=== PATIENT | female | born 1970 | race American Indian/Alaskan Native ===

== ENCOUNTER 2017-06-09 12:37 | Inpatient (IN) | payer OTHER ==
[2017-06-09] MEDS ORDERED: ATIVAN PO ONE (13:27)
[2017-06-09 14:18] LABS: Urine Drugs of Abuse Note Disclamer
[2017-06-09 14:24] LABS: Basophils % (Auto) 0.4 % (0.0-1.8); INR 1.01 (0.87-1.13); Mean Corpuscular HGB Conc 33 % (30-34); Mean Corpuscular Volume 77 fl (79-97); Partial Thromboplastin Time 26.9 Sec. (24.2-36.6); Platelet Count 246 K/mm3 (140-440); Red Blood Count 4.02 M/mm3 (3.65-5.03); Red Cell Distribution Width 14.4 % (13.2-15.2); White Blood Count 5.6 K/mm3 (4.5-11.0)
[2017-06-09 14:32] LABS: Mean Corpuscular Hemoglobin 25 pg (28-32)
[2017-06-09 14:33] LABS: Creatine Kinase MB 1.8 ng/mL (0.0-4.0)
[2017-06-09 14:35] LABS: Creatine Kinase 110 units/L (30-135)
[2017-06-09 14:41] LABS: Albumin 3.9 g/dL (3.9-5); BUN/Creatinine Ratio 6.87; Bilirubin,Total 0.4 mg/dL (0.1-1.2); Calcium 9.4 mg/dL (8.4-10.2); Chloride 101.6 mmol/L (98-107); Magnesium 1.8 mg/dL (1.7-2.3); Potassium 3.1 mmol/L (3.6-5.0); Total Protein 7.7 g/dL (6.3-8.2)
[2017-06-09 14:49] LABS: Bacteria,Urine 1+ /HPF (Negative); Bilirubin,Urine NEG (Negative); Blood,Urine NEG (Negative); Ketones,Urine TR mg/dL (Negative); Leukocyte Esterase,Urine LG (Negative); Mucus,Urine 1+ /HPF; Nitrite,Urine NEG (Negative); Urobilinogen,Urine < 2.0 mg/dL (<2.0)
[2017-06-09] MEDS ORDERED: ROCEPHIN/NS 1 GM/50 ML 1 GM/50 ML BAG IV ONE (15:05)
[2017-06-09] MEDS ORDERED: K-DUR PO ONE (15:06)
--- NOTE | 2017-06-09 16:01 | Emergency Department Report ---
ED General Adult HPI - General Chief complaint: Syncope Stated complaint: SYNCOPE EPISODE Time Seen by Provider: 06/09/17 13:05 Source: patient, EMS Mode of arrival: Stretcher Limitations: Physical Limitation - History of Present Illness Initial comments: Patient states that she had a brief syncopal episode. Apparently she was standing and fell. She sustained a small abrasion of her right leg but had no other apparent injury. She does not complain of headache. She is very emotionally labile at the time of arrival. Triage stated that she had slurred speech when she arrived. However I found her speech to be fluent although she was very emotionally labile and anxious. She immediately started telling me it that her left her in April and this is what caused her problems today. However, on further questioning she states that she has passed out before but never been told she had any specific problem related to syncope. According to the triage record she has a TIA with right-sided deficit. This is actually not apparent on exam. -: Sudden Location: right, lower extremity Radiation: non-radiation Severity scale (0 -10): 0 Quality: burning Consistency: now resolved Improves with: none Worsens with: none Associated Symptoms: denies other symptoms, other (anxiety and emotional upset) - Related Data Home Medications Medication Instructions Recorded Confirmed Last Taken Hydralazine HCl [Apresoline TAB] 50 mg PO TID 06/09/17 06/09/17 Unknown Insulin Glargine [Lantus] 7 units SQ QHS 06/09/17 06/09/17 Unknown Labetalol [Normodyne] 300 mg PO BID 06/09/17 06/09/17 Unknown Allergies Allergy/AdvReac Type Severity Reaction Status Date / Time amlodipine besylate Allergy Vomiting Verified 01/21/14 20:31 [From Norvasc] hydromorphone HCl Allergy Vomiting Verified 01/21/14 20:31 [From Dilaudid] lisinopril Allergy Unknown Verified 01/21/14 20:31 ED Review of Systems ROS: Stated complaint: SYNCOPE EPISODE Other details as noted in HPI Constitutional: denies: chills, fever Eyes: denies: eye pain, eye discharge, vision change ENT: denies: ear pain, throat pain Respiratory: denies: cough, shortness of breath, wheezing Cardiovascular: syncope. denies: chest pain, palpitations Endocrine: no symptoms reported Gastrointestinal: denies: abdominal pain, nausea, diarrhea Genitourinary: denies: urgency, dysuria, discharge Musculoskeletal: denies: back pain, joint swelling, arthralgia Skin: denies: rash, lesions Neurological: denies: headache, weakness, paresthesias Psychiatric: anxiety, depression Hematological/Lymphatic: denies: easy bleeding, easy bruising ED Past Medical Hx - Past Medical History Hx Hypertension: Yes Hx Congestive Heart Failure: No Hx Diabetes: Yes Hx Asthma: No Hx COPD: No - Surgical History Hx Cholecystectomy: Yes - Social History Smoking Status: Unknown if ever smoked - Medications Home Medications: Home Medications Medication Instructions Recorded Confirmed Last Taken Type Hydralazine HCl [Apresoline TAB] 50 mg PO TID 06/09/17 06/09/17 Unknown History Insulin Glargine [Lantus] 7 units SQ QHS 06/09/17 06/09/17 Unknown History Labetalol [Normodyne] 300 mg PO BID 06/09/17 06/09/17 Unknown History ED Physical Exam - General Limitations: No Limitations General appearance: alert, other (tearful and anxious) - Head Head exam: Present: atraumatic, normocephalic - Eye Eye exam: Present: normal appearance, PERRL, EOMI. Absent: scleral icterus - ENT ENT exam: Present: normal exam, mucous membranes moist - Neck Neck exam: Present: normal inspection. Absent: tenderness, meningismus - Respiratory Respiratory exam: Present: normal lung sounds bilaterally. Absent: respiratory distress - Cardiovascular Cardiovascular Exam: Present: regular rate, normal rhythm. Absent: systolic murmur, diastolic murmur, rubs, gallop - GI/Abdominal GI/Abdominal exam: Present: soft, normal bowel sounds. Absent: distended, tenderness, guarding, rebound, rigid - Extremities Exam Extremities exam: Present: normal inspection. Absent: tenderness, calf tenderness - Back Exam Back exam: Present: normal inspection. Absent: CVA tenderness (R), CVA tenderness (L) - Neurological Exam Neurological exam: Present: alert, oriented X3, CN II-XII intact, other (NIH stroke score is 0). Absent: motor sensory deficit - Psychiatric Psychiatric exam: Present: normal affect, normal mood - Skin Skin exam: Present: warm, dry, normal color. Absent: intact (small abrasion right leg), rash ED Course Vital Signs 06/09/17 06/09/17 06/09/17 12:51 12:56 13:14 Temperature 98.9 F Pulse Rate 87 Respiratory 15 15 Rate Blood Pressure 126/82 Blood Pressure 180/91 [Right] O2 Sat by Pulse 99 99 Oximetry 06/09/17 15:20 Temperature Pulse Rate 82 Respiratory 15 Rate Blood Pressure Blood Pressure 182/85 [Right] O2 Sat by Pulse 99 Oximetry - Reevaluation(s) Reevaluation #1: Patient was found to have a possible UTI. She is given ceftriaxone. She was found to be mildly hypokalemic with a creatinine 1.6. She was given a small amount of supplemental potassium. Her d-dimer was slightly over normal. However in this clinical setting I believe that to be nonsignificant. Her EKG showed normal sinus rhythm and no ectopy. Patient was admitted by the hospitalist service for further care and evaluation. CT the head was also performed 06/09/17 16:21 ED Medical Decision Making - Lab Data Result diagrams: 06/09/17 13:41 06/09/17 13:41 Laboratory Results - last 24 hr 06/09/17 06/09/17 06/09/17 12:47 13:41 13:41 WBC 5.6 RBC 4.02 Hgb 10.0 L Hct 31.0 MCV 77 L MCH 25 L MCHC 33 RDW 14.4 Plt Count 246 Lymph % (Auto) 18.1 [place] % (Auto) 9.2 H Eos % (Auto) 1.0 Baso % (Auto) 0.4 Lymph # 1.0 L [place] # 0.5 Eos # 0.1 Baso # 0.0 Seg Neutrophils % 71.3 H Seg Neutrophils # 4.0 PT INR APTT D-Dimer Sodium 141 Potassium 3.1 L Chloride 101.6 Carbon Dioxide 23 Anion Gap 20 BUN 11 Creatinine 1.6 H Estimated GFR 42 BUN/Creatinine Ratio 6.87 Glucose 135 H POC Glucose 128 H Calcium 9.4 Magnesium 1.80 Total Bilirubin 0.40 AST 18 ALT 13 Alkaline Phosphatase 60 Total Creatine Kinase CK-MB (CK-2) CK-MB (CK-2) Rel Index Troponin T Total Protein 7.7 Albumin 3.9 Albumin/Globulin Ratio 1.0 TSH Urine Color Urine Turbidity Urine pH Ur Specific [place] Urine Protein Urine Glucose (UA) Urine Ketones Urine Blood Urine Nitrite Ur Reducing Substances Urine Bilirubin Urine Ictotest Urine Urobilinogen Ur Leukocyte Esterase Urine WBC (Auto) Urine RBC (Auto) U Epithel Cells (Auto) Urine Bacteria (Auto) Urine Mucus Urine HCG, Qual Salicylates Urine Opiates Screen Urine Methadone Screen Acetaminophen Ur Barbiturates Screen Ur Phencyclidine Scrn Ur Amphetamines Screen U Benzodiazepines Scrn Urine Cocaine Screen U Marijuana (THC) Screen Drugs of Abuse Note Plasma/Serum Alcohol 06/09/17 06/09/17 06/09/17 13:41 13:41 13:41 WBC RBC Hgb Hct MCV MCH MCHC RDW Plt Count Lymph % (Auto) [place] % (Auto) Eos % (Auto) Baso % (Auto) Lymph # [place] # Eos # Baso # Seg Neutrophils % Seg Neutrophils # PT INR APTT D-Dimer Sodium Potassium Chloride Carbon Dioxide Anion Gap BUN Creatinine Estimated GFR BUN/Creatinine Ratio Glucose POC Glucose Calcium Magnesium Total Bilirubin AST ALT Alkaline Phosphatase Total Creatine Kinase CK-MB (CK-2) CK-MB (CK-2) Rel Index Troponin T Total Protein Albumin Albumin/Globulin Ratio TSH 1.880 Urine Color Urine Turbidity Urine pH Ur Specific [place] Urine Protein Urine Glucose (UA) Urine Ketones Urine Blood Urine Nitrite Ur Reducing Substances Urine Bilirubin Urine Ictotest Urine Urobilinogen Ur Leukocyte Esterase Urine WBC (Auto) Urine RBC (Auto) U Epithel Cells (Auto) Urine Bacteria (Auto) Urine Mucus Urine HCG, Qual Salicylates < 0.3 L Urine Opiates Screen Urine Methadone Screen Acetaminophen < 15.0 Ur Barbiturates Screen Ur Phencyclidine Scrn Ur Amphetamines Screen U Benzodiazepines Scrn Urine Cocaine Screen U Marijuana (THC) Screen Drugs of Abuse Note Plasma/Serum Alcohol 06/09/17 06/09/17 06/09/17 13:41 13:41 13:41 WBC RBC Hgb Hct MCV MCH MCHC RDW Plt Count Lymph % (Auto) [place] % (Auto) Eos % (Auto) Baso % (Auto) Lymph # [place] # Eos # Baso # Seg Neutrophils % Seg Neutrophils # PT 13.2 INR 1.01 APTT 26.9 D-Dimer 291.93 H Sodium Potassium Chloride Carbon Dioxide Anion Gap BUN Creatinine Estimated GFR BUN/Creatinine Ratio Glucose POC Glucose Calcium Magnesium Total Bilirubin AST ALT Alkaline Phosphatase Total Creatine Kinase 110 CK-MB (CK-2) 1.8 CK-MB (CK-2) Rel Index 1.6 Troponin T < 0.010 Total Protein Albumin Albumin/Globulin Ratio TSH Urine Color Urine Turbidity Urine pH Ur Specific [place] Urine Protein Urine Glucose (UA) Urine Ketones Urine Blood Urine Nitrite Ur Reducing Substances Urine Bilirubin Urine Ictotest Urine Urobilinogen Ur Leukocyte Esterase Urine WBC (Auto) Urine RBC (Auto) U Epithel Cells (Auto) Urine Bacteria (Auto) Urine Mucus Urine HCG, Qual Salicylates Urine Opiates Screen Urine Methadone Screen Acetaminophen Ur Barbiturates Screen Ur Phencyclidine Scrn Ur Amphetamines Screen U Benzodiazepines Scrn Urine Cocaine Screen U Marijuana (THC) Screen Drugs of Abuse Note Plasma/Serum Alcohol < 0.01 06/09/17 06/09/17 14:13 14:13 WBC RBC Hgb Hct MCV MCH MCHC RDW Plt Count Lymph % (Auto) [place] % (Auto) Eos % (Auto) Baso % (Auto) Lymph # [place] # Eos # Baso # Seg Neutrophils % Seg Neutrophils # PT INR APTT D-Dimer Sodium Potassium Chloride Carbon Dioxide Anion Gap BUN Creatinine Estimated GFR BUN/Creatinine Ratio Glucose POC Glucose Calcium Magnesium Total Bilirubin AST ALT Alkaline Phosphatase Total Creatine Kinase CK-MB (CK-2) CK-MB (CK-2) Rel Index Troponin T Total Protein Albumin Albumin/Globulin Ratio TSH Urine Color Yellow Urine Turbidity Cloudy Urine pH 5.0 Ur Specific [place] 1.018 Urine Protein 100 mg/dl Urine Glucose (UA) 50 Urine Ketones Tr Urine Blood Neg Urine Nitrite Neg Ur Reducing Substances Not Reportable Urine Bilirubin Neg Urine Ictotest Not Reportable Urine Urobilinogen < 2.0 Ur Leukocyte Esterase Lg Urine WBC (Auto) 26.0 H Urine RBC (Auto) 25.0 U Epithel Cells (Auto) 34.0 H Urine Bacteria (Auto) 1+ Urine Mucus 1+ Urine HCG, Qual Negative Salicylates Urine Opiates Screen Presumptive negative Urine Methadone Screen Presumptive negative Acetaminophen Ur Barbiturates Screen Presumptive negative Ur Phencyclidine Scrn Presumptive negative Ur Amphetamines Screen Presumptive negative U Benzodiazepines Scrn Presumptive negative Urine Cocaine Screen Presumptive negative U Marijuana (THC) Screen Presumptive negative Drugs of Abuse Note Disclamer Plasma/Serum Alcohol - EKG Data -: EKG Interpreted by [place] EKG shows normal: sinus rhythm, axis, intervals, QRS complexes, ST-T waves Rate: normal - EKG Data Interpretation: no acute changes, other (following progression is somewhat decreased this is a nonspecific finding may be related to habitus) - Radiology Data interpreted by me: Chest x-ray no acute process. I don't see anything obvious on the CT the head. Radiologist interpretation is pending. Hospitalist is aware. Critical care attestation.: If time is entered above; I have spent that time in minutes in the direct care of this critically ill patient, excluding procedure time. ED Disposition Clinical Impression: Hypokalemia, Renal insufficiency Syncope Qualifiers: Syncope type: unspecified Qualified Code(s): R55 - Syncope and collapse Disposition: OP ADMIT IP TO THIS HOSP Is pt being admited?: Yes Does the pt Need Aspirin: Yes Condition: Stable Instructions: Syncope (ED) Referrals: PRIMARY CARE, [Primary Care Provider] - 3-5 Days Time of Disposition: 16:25
--- NOTE | 2017-06-09 16:18 | XRay Report ---
FINAL REPORT PROCEDURE: XR CHEST 1V AP TECHNIQUE: Chest radiograph anteroposterior view. CPT 53407 HISTORY: hypertension COMPARISON: No prior studies are available for comparison. FINDINGS: Heart: Mild heart shadow enlargement Mediastinum/Vessels: Normal. Lungs/Pleural space: Normal. Bony thorax: No acute osseous abnormality. Life support devices: None. IMPRESSION: No acute pulmonary abnormality. Mildly enlarged heart shadow could reflect cardiomegaly or pericardial effusion.
[2017-06-09] MEDS ORDERED: DULCOLAX PR PRN (16:24)
[2017-06-09] MEDS ORDERED: PHENERGAN PR PRN (16:24)
[2017-06-09] MEDS ORDERED: ZOFRAN IV PRN (16:24)
[2017-06-09] MEDS ORDERED: REGLAN PO PRN (16:24)
[2017-06-09] MEDS ORDERED: MILK OF MAGNESIA PO PRN (16:24)
[2017-06-09] MEDS ORDERED: SODIUM CHLORIDE FLUSH SYRINGE 10 ML IV PRN (16:24)
[2017-06-09] MEDS ORDERED: TYLENOL PO PRN (16:24)
[2017-06-09] MEDS ORDERED: NORCO 5/325 PO PRN (16:24)
[2017-06-09] MEDS ORDERED: BABY ASPIRIN PO ONE (16:25)
--- NOTE | 2017-06-09 16:27 | Cat Scan Report ---
FINAL REPORT PROCEDURE: CT HEAD/BRAIN WO CON TECHNIQUE: Computerized tomography of the head was performed without contrast material. HISTORY: syncope COMPARISON: No prior studies are available for comparison. FINDINGS: Skull and scalp: Normal. Paranasal sinuses: Moderate fluid each mastoid air cell complex consistent with moderate acute otomastoiditis. Mucosal thickening with webbing in the left maxillary sinus. Mild ethmoiditis. Ventricles and subarachnoid spaces: Normal. Cerebrum: No evidence of hemorrhage, acute infarction or mass . Cerebellum and brainstem: No evidence of hemorrhage, acute infarction or mass. Vasculature: Normal. Comments: Mild diffuse atrophy. Mild periventricular microischemic change and prominent multifocal lacunar infarcts in the basal ganglia which appear of low-attenuation and consistent with chronic process. MRI is more sensitive in detecting early or subtle micro lacunar infarcts. IMPRESSION: No definitive evidence of acute intracranial pathology. Prominent central macro lacunar infarcts. Moderate acute bilateral otomastoiditis
[2017-06-09] MEDS ORDERED: D50W (25GM) IV PRN (16:31)
--- NOTE | 2017-06-09 16:33 | History and Physical Report ---
History of Present Illness Date of examination: 06/09/17 Chief complaint: syncope History of present illness: 47-year-old -[place] female with past medical history significant for hypertension, history of upper GI bleed status post cauterization, diabetes mellitus type 2, MS, CHF, stroke presented to the emergency department complaining that she passed out earlier this morning. Patient follow on the ground and hit her arm. Denied any abnormal body movement. Denied any trauma to the head. She had similar episode previously and was admitted to [facility] and diagnosed with seizure and discharged. REVIEW OF SYSTEMS: GENERAL: no weight change, no fatigue, no fever HEAD: no head ache EYES: +blurry vision, no acute visual loss EARS: no hearing loss, no discharge, no earache NOSE: no stuffiness, no sneezing, no discharge MOUTH, THROAT AND NECK: no bleeding gums, no sore throat, no swollen neck CARDIAC: no palpitations, no dyspnea on exertion, no orthopnea, no PND, no edema , no chest pain RESPIRATORY: no shortness of breath, no wheeze, no cough, no sputum, no hemoptysis, no asthma GI: no decreased appetite, no nausea, no vomiting, no dysphagia, no diarrhea, no constipation, no abdominal pain URINARY: no change in frequency, no urgency, no polyuria, no hematuria, no incontinence MUSCULOSKELETAL: no muscle weakness, no pain, no joint stiffness NEUROLOGIC: syncope HEMATOLOGIC: no anemia, no easy bruising SKIN: no rashes ENDOCRINE: no heat/cold intolerance, no polyuria, no polydipsia, no thyroid problems, no diabetes PSYCHIATRIC: no anxiety, no depression, no suicidal ideations Past History Past Medical History: diabetes (multiple sclerosisMS), heart failure, hypertension, stroke, other (MS) Past Surgical History: cholecystectomy, Other (cauterization of bleeding ulcer) Social history: full code. denies: smoking, alcohol abuse, prescription drug abuse, IV drug use Family history: no significant family history Medications and Allergies Allergies Allergy/AdvReac Type Severity Reaction Status Date / Time amlodipine besylate Allergy Vomiting Verified 01/21/14 20:31 [From Norvasc] hydromorphone HCl Allergy Vomiting Verified 01/21/14 20:31 [From Dilaudid] lisinopril Allergy Unknown Verified 01/21/14 20:31 Home Medications Medication Instructions Recorded Confirmed Last Taken Type Hydralazine HCl [Apresoline TAB] 50 mg PO TID 06/09/17 06/09/17 Unknown History Insulin Glargine [Lantus] 7 units SQ QHS 06/09/17 06/09/17 Unknown History Labetalol [Normodyne] 300 mg PO BID 06/09/17 06/09/17 Unknown History Exam - Physical Exam Narrative exam: Not in cardiopulmonary distress. The patient appeared well nourished and normally developed. Vital signs as documented. Head exam is unremarkable. No scleral icterus . Neck is without jugular venous distension, thyromegaly, or carotid bruits. Lungs are clear to auscultation. Cardiac exam reveals regular rate and Rhythm. First and second heart sounds normal. No murmurs, rubs or gallops. Abdominal exam reveals normal bowel sounds, no masses, no organomegaly and no aortic enlargement. Extremities are nonedematous and both femoral and pedal pulses are normal. BIOMETRICS SPECIALIST: Alert and oriented 3. No focal weakness. - Constitutional Vitals: Temp Pulse Resp BP Pulse Ox 98.9 F 82 15 182/85 99 06/09/17 12:56 06/09/17 15:20 06/09/17 15:20 06/09/17 15:20 06/09/17 15:20 Results - Labs CBC & Chem 7: 06/09/17 13:41 06/09/17 13:41 Labs: Laboratory Last Values WBC 5.6 K/mm3 (4.5-11.0) 06/09/17 13:41 RBC 4.02 M/mm3 (3.65-5.03) 06/09/17 13:41 Hgb 10.0 gm/dl (10.1-14.3) L 06/09/17 13:41 Hct 31.0 % (30.3-42.9) 06/09/17 13:41 MCV 77 fl (79-97) L 06/09/17 13:41 MCH 25 pg (28-32) L 06/09/17 13:41 MCHC 33 % (30-34) 06/09/17 13:41 RDW 14.4 % (13.2-15.2) 06/09/17 13:41 Plt Count 246 K/mm3 (140-440) 06/09/17 13:41 Lymph % (Auto) 18.1 % (13.4-35.0) 06/09/17 13:41 [place] % (Auto) 9.2 % (0.0-7.3) H 06/09/17 13:41 Eos % (Auto) 1.0 % (0.0-4.3) 06/09/17 13:41 Baso % (Auto) 0.4 % (0.0-1.8) 06/09/17 13:41 Lymph # 1.0 K/mm3 (1.2-5.4) L 06/09/17 13:41 [place] # 0.5 K/mm3 (0.0-0.8) 06/09/17 13:41 Eos # 0.1 K/mm3 (0.0-0.4) 06/09/17 13:41 Baso # 0.0 K/mm3 (0.0-0.1) 06/09/17 13:41 Seg Neutrophils % 71.3 % (40.0-70.0) H 06/09/17 13:41 Seg Neutrophils # 4.0 K/mm3 (1.8-7.7) 06/09/17 13:41 PT 13.2 Sec. (12.2-14.9) 06/09/17 13:41 INR 1.01 (0.87-1.13) 06/09/17 13:41 APTT 26.9 Sec. (24.2-36.6) 06/09/17 13:41 D-Dimer 291.93 ng/mlDDU (0-234) H 06/09/17 13:41 Sodium 141 mmol/L (137-145) 06/09/17 13:41 Potassium 3.1 mmol/L (3.6-5.0) L 06/09/17 13:41 Chloride 101.6 mmol/L (98-107) 06/09/17 13:41 Carbon Dioxide 23 mmol/L (22-30) 06/09/17 13:41 Anion Gap 20 mmol/L 06/09/17 13:41 BUN 11 mg/dL (7-17) 06/09/17 13:41 Creatinine 1.6 mg/dL (0.7-1.2) H 06/09/17 13:41 Estimated GFR 42 ml/min 06/09/17 13:41 BUN/Creatinine Ratio 6.87 % 06/09/17 13:41 Glucose 135 mg/dL (65-100) H 06/09/17 13:41 POC Glucose 128 (70-105) H 06/09/17 12:47 Calcium 9.4 mg/dL (8.4-10.2) 06/09/17 13:41 Magnesium 1.80 mg/dL (1.7-2.3) 06/09/17 13:41 Total Bilirubin 0.40 mg/dL (0.1-1.2) 06/09/17 13:41 AST 18 units/L (5-40) 06/09/17 13:41 ALT 13 units/L (7-56) 06/09/17 13:41 Alkaline Phosphatase 60 units/L (35-129) 06/09/17 13:41 Total Creatine Kinase 110 units/L (30-135) 06/09/17 13:41 CK-MB (CK-2) 1.8 ng/mL (0.0-4.0) 06/09/17 13:41 CK-MB (CK-2) Rel Index 1.6 (0-4) 06/09/17 13:41 Troponin T < 0.010 ng/mL (0.00-0.029) 06/09/17 13:41 Total Protein 7.7 g/dL (6.3-8.2) 06/09/17 13:41 Albumin 3.9 g/dL (3.9-5) 06/09/17 13:41 Albumin/Globulin Ratio 1.0 % 06/09/17 13:41 TSH 1.880 mlU/mL (0.270-4.200) 06/09/17 13:41 Urine Color Yellow (Yellow) 06/09/17 14:13 Urine Turbidity Cloudy (Clear) 06/09/17 14:13 Urine pH 5.0 (5.0-7.0) 06/09/17 14:13 Ur Specific [place] 1.018 (1.003-1.030) 06/09/17 14:13 Urine Protein 100 mg/dl mg/dL (Negative) 06/09/17 14:13 Urine Glucose (UA) 50 mg/dL (Negative) 06/09/17 14:13 Urine Ketones Tr mg/dL (Negative) 06/09/17 14:13 Urine Blood Neg (Negative) 06/09/17 14:13 Urine Nitrite Neg (Negative) 06/09/17 14:13 Ur Reducing Substances Not Reportable 06/09/17 14:13 Urine Bilirubin Neg (Negative) 06/09/17 14:13 Urine Ictotest Not Reportable 06/09/17 14:13 Urine Urobilinogen < 2.0 mg/dL (<2.0) 06/09/17 14:13 Ur Leukocyte Esterase Lg (Negative) 06/09/17 14:13 Urine WBC (Auto) 26.0 /HPF (0.0-6.0) H 06/09/17 14:13 Urine RBC (Auto) 25.0 /HPF (0.0-6.0) 06/09/17 14:13 U Epithel Cells (Auto) 34.0 /HPF (0-13.0) H 06/09/17 14:13 Urine Bacteria (Auto) 1+ /HPF (Negative) 06/09/17 14:13 Urine Mucus 1+ /HPF 06/09/17 14:13 Urine HCG, Qual Negative (Negative) 06/09/17 14:13 Salicylates < 0.3 mg/dL (2.8-20.0) L 06/09/17 13:41 Urine Opiates Screen Presumptive negative 06/09/17 14:13 Urine Methadone Screen Presumptive negative 06/09/17 14:13 Acetaminophen < 15.0 ug/mL (10.0-30.0) 06/09/17 13:41 Ur Barbiturates Screen Presumptive negative 06/09/17 14:13 Ur Phencyclidine Scrn Presumptive negative 06/09/17 14:13 Ur Amphetamines Screen Presumptive negative 06/09/17 14:13 U Benzodiazepines Scrn Presumptive negative 06/09/17 14:13 Urine Cocaine Screen Presumptive negative 06/09/17 14:13 U Marijuana (THC) Screen Presumptive negative 06/09/17 14:13 Drugs of Abuse Note Disclamer 06/09/17 14:13 Plasma/Serum Alcohol < 0.01 gm% (0-0.07) 06/09/17 13:41 Assessment and Plan Assessment and plan: Syncope, TIA History of stroke Hypokalemia Acute kidney injury UTI Anemia - Patient is going to be working up for TIA, syncope - Hypokalemia repleted going to check morning labs\ - We will do IV fluids - We will give Rocephin - Consult neurology DVT prophylaxis - SCD because of previous history of GI bleed Disposition - Admit to telemetry floor Advance Directives: Yes VTE prophylaxis?: Mechanical Contraindication Mechanical VTE Prophylaxis: Contraindicated Reason for no VTE Prophylaxis: Bleeding Plan of care discussed with patient/family: Yes
[2017-06-09] MEDS ORDERED: NON-FORMULARY (Hydralazine Hcl [Apresoline Tab] 50 MG) PO SCH (20:00)
[2017-06-09] MEDS ORDERED: INSULIN GLARGINE SQ SCH (22:00)
[2017-06-09] MEDS: APRESOLINE PO SCH (22:12)
[2017-06-09] MEDS: NORMODYNE PO SCH (22:12)
[2017-06-09] MEDS: COLACE PO SCH (22:12)
[2017-06-09] MEDS: HEPARIN SUB-Q SCH (22:13)
[2017-06-09] MEDS: ZOCOR PO SCH (22:13)
[2017-06-09] MEDS: NOVOLOG SUB-Q SCH (22:25)
[2017-06-09] MEDS: LEVEMIR SUB-Q SCH (22:40)
[2017-06-10] MEDS: HEPARIN SUB-Q SCH ×3 (06:08→22:11)
[2017-06-10 07:10] LABS: Basophils % (Auto) 0.3 % (0.0-1.8); Eosinophils % (Auto) 0.9 % (0.0-4.3); Hematocrit 29.9 % (30.3-42.9); Hemoglobin 9.5 gm/dl (10.1-14.3); Mean Corpuscular HGB Conc 32 % (30-34); Mean Corpuscular Volume 79 fl (79-97); Platelet Count 245 K/mm3 (140-440); Red Blood Count 3.78 M/mm3 (3.65-5.03); Red Cell Distribution Width 14.1 % (13.2-15.2); White Blood Count 3.7 K/mm3 (4.5-11.0)
[2017-06-10 07:16] LABS: BUN/Creatinine Ratio 7.89; Calcium 8.8 mg/dL (8.4-10.2); Chloride 101.6 mmol/L (98-107); Potassium 3.5 mmol/L (3.6-5.0)
[2017-06-10 07:19] LABS: Mean Corpuscular Hemoglobin 25 pg (28-32)
[2017-06-10] MEDS: APRESOLINE PO SCH ×3 (08:05→20:40)
[2017-06-10] MEDS: NOVOLOG SUB-Q SCH ×4 (08:31→22:15)
--- NOTE | 2017-06-10 10:29 | Magnetic Resonance Report ---
MRI BRAIN WITHOUT CONTRAST INDICATION: Stroke. COMPARISON: Head CT from yesterday. FINDINGS: Noncontrast multiplanar and multisequence MRI of the brain demonstrates symmetric, age-appropriate ventricles and sulci without acute infarct, hemorrhage, mass effect or midline shift. Moderate periventricular and numerous white matter FLAIR and T2 hyperintensities may represent small vessel end-artery ischemic disease and/or small lacunar infarctions. No abnormal extra-axial masses or fluid collections. Normal major intracranial vascular flow voids. Normal posterior fossa structures with symmetric seventh and eighth nerve complexes. Symmetric, grossly unremarkable eye globes. Mild to moderate bilateral ethmoid sinusitis, greatest posteriorly. Mild left maxillary sinus mucosal thickening/1.2 cm retention cyst inferiorly. Extensive bilateral mastoiditis. Clear remainder imaged paranasal sinuses. Normal midline structures without evidence of Chiari malformation. CONCLUSION: No acute intracranial MRI abnormality with age-appropriate atrophy, microvascular changes and sinus disease with extensive bilateral mastoiditis, as described. Thank you for the opportunity to participate in this patient's care.
--- NOTE | 2017-06-10 10:34 | Magnetic Resonance Report ---
MRA HEAD WITHOUT CONTRAST INDICATION: Stroke. COMPARISON: None similar. FINDINGS: MRA of the head performed without intravenous contrast and demonstrates no definite critical stenosis, occlusion or vascular malformation. Subtle signal attenuation as along the right A1 segment creating somewhat beaded appearance as also along the distal right MARINE EQUIPMENT RESEARCH ENGINEER possible stenosis versus technical and remain nonspecific. Please note that detection of aneurysms less than 5 mm is limited on this exam. CONCLUSION: Normal study of the eyak of [place], as detailed above. Thank you for the opportunity to participate in this patient's care.
[2017-06-10] MEDS: COLACE PO SCH ×2 (11:01→22:11)
[2017-06-10] MEDS: NORMODYNE PO SCH ×2 (11:01→22:10)
--- NOTE | 2017-06-10 11:15 | Admit Criteria Form ---
Admission Criteria Documentation: SYNCOPE Clinical Indications for Admission to Inpatient Care ( Place 'X' for any and all applicable criteria): Admission is indicated for syncope and ANY ONE of the following (1)(2)(3)(4)(5) (6)(7) : [X]I. Inpatient admission required rather than observation care (Also use Syncope: Observation Care Criteria as appropriate) because of ANY ONE of the following: [ ]a) Hemodynamic instability that is severe or persistent [ ]b) Cardiac arrhythmias of immediate concern identified or strongly suspected (eg, needs electrophysiologic study) [ ]c) Acute coronary syndrome identified (Also use Myocardial Infarction or Angina Criteria form ) [ ]d) Structural cardiac disorder (eg, aortic stenosis) suspected as cause that requires immediate correction [ ]e) Respiratory symptoms (eg, dyspnea, tachypnea) that are severe or persistent [ ]f) Neurologic signs or symptoms that are severe or persistent ( eg, stroke, seizures, altered mental status) [ ]g) Severe electrolyte abnormalities requiring inpatient care [ ]h) Supplemental oxygen or respiratory treatment for over 24 hrs that are performable only in acute inpatient setting [ ]i) IV fluid to replace significant ongoing (eg, for over 24 hrs ) losses (>3 L/m2 per day) [ ]j) Continuous intravenous infusion of anticoagulation, platelet inhibitor, vasoactive, or antiarrhythmic medication(15)(16) [ ]k) Pulmonary artery catheter monitoring [ ]l) Temporary pacemaker placement(17) [ ]m) Emergent cardioversion(18) [X]n) Other conditions, treatment or monitoring requiring inpatient admission [ ]II. Suspicion of imminently dangerous cause (eg, rare causes like pericardial tamponade, pulmonary embolism) [ ]III. Syncope causing severe injury requiring hospitalization Extended stay beyond goal length of stay may be needed for(28) [ ]a) Dangerous arrhythmia(15)(23)(27)(29) [ ]b) Myocardial ischemia [ ]c) Seizure disorder [ ]d) Syncope-related injuries The original HDF content created by [employer] has been revised. The portions of the content which have been revised are identified through the use of italic text or in bold, and [employer] has neither reviewed nor approved the modified material. All other unmodified content is copyright [email or web address] [employer]. Please see references footnoted in the original [facility] edition 2016 Admission Criteria Met: Yes
--- NOTE | 2017-06-10 12:00 | Consultation ---
History of Present Illness Consult date: 06/10/17 Requesting physician: SHANNAN MERCADO Reason for Consult: syncope Chief complaint: passed out History of present illness: 47 YO F Hx MS on Copaxone, reportedly L Huerta's Palsy, stroke according to documents, baseline residual R sided weakness and numbness, HTN/DM2 p/w episode of syncope. Episode occurred on 06/09 11 AM. Pt denies clearly feeling lightheaded or presyncopal prior but denies prior PO intake. She reports LOC for < 5 sec and fall to ground. She denies tongue bite/incontinence/prolonged confusion or new focal numbness/tingling/weakness or inability to speak when returned to consciousness. There were no clear aggravating, relieving or other temporal factors. Severity was such to cause LOC. She reportedly had similar episode previously and was admitted to [facility] and diagnosed with seizure and discharged but details of this are not clearly available via documents. Past History Past Medical History: diabetes (multiple sclerosisMS), heart failure, hypertension, stroke, other (MS) Past Surgical History: cholecystectomy, Other (cauterization of bleeding ulcer) Social history: full code. denies: smoking, alcohol abuse, prescription drug abuse, IV drug use Family history: no significant family history Medications and Allergies Allergies Allergy/AdvReac Type Severity Reaction Status Date / Time amlodipine besylate Allergy Vomiting Verified 01/21/14 20:31 [From Norvasc] hydromorphone HCl Allergy Vomiting Verified 01/21/14 20:31 [From Dilaudid] lisinopril Allergy Unknown Verified 01/21/14 20:31 Home Medications Medication Instructions Recorded Confirmed Last Taken Type Hydralazine HCl [Apresoline TAB] 50 mg PO TID 06/09/17 06/09/17 Unknown History Insulin Glargine [Lantus] 7 units SQ QHS 06/09/17 06/09/17 Unknown History Labetalol [Normodyne] 300 mg PO BID 06/09/17 06/09/17 Unknown History Active Meds: Active Medications Acetaminophen (Tylenol) 650 mg PO Q4H PRN PRN Reason: Pain, Mild (1-3) Acetaminophen/Hydrocodone Bitart ([place] 5/325) 2 each PO Q6H PRN PRN Reason: Pain, Moderate (4-6) Bisacodyl (Dulcolax) 10 mg LA QDAY PRN PRN Reason: Constipation Dextrose (D50w (25gm)) 50 ml IV PRN PRN PRN Reason: Hypoglycemia Docusate Sodium (Colace) 100 mg PO BID [facility] Last Admin: 06/10/17 11:01 Dose: 100 mg Heparin Sodium (Porcine) (Heparin) 5,000 unit SUB-Q Q8HR [facility] Last Admin: 06/10/17 06:08 Dose: 5,000 unit Hydralazine HCl (Apresoline) 50 mg PO TID [facility] Last Admin: 06/10/17 08:05 Dose: Not Given Ceftriaxone Sodium (Rocephin/Ns 1 Gm/50 Ml) 1 gm in 50 mls @ 100 mls/hr IV Q24H [facility] PRN Reason: Protocol Insulin Aspart (Novolog) 0 units SUB-Q ACHS [facility] PRN Reason: Protocol Last Admin: 06/09/17 22:25 Dose: Not Given Insulin Detemir (Levemir) 7 units SUB-Q QHS [facility] Last Admin: 06/09/17 22:40 Dose: 7 units Labetalol HCl (Normodyne) 300 mg PO BID [facility] Last Admin: 06/10/17 11:01 Dose: 300 mg Magnesium Hydroxide (Milk Of Magnesia) 30 ml PO Q4H PRN PRN Reason: Constipation Metoclopramide HCl (Reglan) 10 mg PO Q6H PRN PRN Reason: Nausea And Vomiting Ondansetron HCl (Zofran) 4 mg IV Q8H PRN PRN Reason: N/V unrelieved by Reglan Promethazine HCl (Phenergan) 25 mg LA Q6H PRN PRN Reason: Nausea And Vomiting Simvastatin (Zocor) 20 mg PO QHS [facility] Last Admin: 06/09/17 22:13 Dose: 20 mg Sodium Chloride (Sodium Chloride Flush Syringe 10 Ml) 10 ml IV PRN PRN PRN Reason: LINE FLUSH Review of Systems All systems: negative Constitutional: weakness (generalized) Neurological: weakness (on R), parathesias, numbness, tingling (on R), syncope, gait dysfunction, motor disturbance, sensory deficit, no transient paralysis, no paralysis, no convulsions, no double vision, no loss of vision, no paralysis Psychiatric: anxiety, depression, other (divorce ongoing) Physical Examination - Vital Signs Vital Signs: Vital Signs BP 126/82 06/09/17 12:51 - Constitutional General appearance: chronically ill, other (tearful, anxious) - EENT EENT: Present: ATNC, PERRL, mucous membranes moist, hearing intact, vision intact - Respiratory Respiratory: Present: chest non-tender, normal breath sounds, no respiratory distress - Cardiovascular Cardiovascular: Present: regular rate Extremities: Present: no peripheral edema bilatateraly, no clubbing, cyanosis, no inflammation, no ischemia or petechiae - Gastrointestinal Gastrointestinal: Present: normoactive bowel sounds, soft, non-distended - Integumentary Integumentary: Present: normal - Neurologic Cranial nerve examination: PERRL, EOMI, VFF, V1/V2/V3 grossly intact, tongue midline, intact, intact shoulder shrug, Intact Vestibulo-ocular r, intact corneal reflex, facial droop (upper nad lower on L) Speech examination: intact Sensorimotor examination: pronator drift (mild on R), hemiparesis (faint fine motor on R) Detailed motor examination: grossly full strength in Motor examination - right side: 5/5: biceps, triceps, wrist flexion, wrist extension, co chairman, hip flexors, knee extensors, dorsiflexion, toe extension (EHL) , plantarflexion Motor examination - left side: 5/5: biceps, triceps, wrist flexion, wrist extension, co chairman, hip flexors, knee extensors, dorsiflexion, toe extension (EHL) , plantarflexion Detailed sensory examination: light touch, temperature (decr on R) Reflex and gait examination: intact Reflexes: 2+: ankle, 3+: bicep, knee, tricep - Musculoskeletal Musculoskeletal: Present: no fluid collection, no pain, normal range of motion - Psychiatric Psychiatric: Present: depressed, cooperative, other (anxious, tearful) Results - Laboratory Findings CBC and BMP: 06/10/17 05:46 06/10/17 05:46 Abnormal Lab Findings: Abnormal Labs 06/09/17 06/10/17 06/10/17 22:19 05:46 05:46 WBC 3.7 L Hgb 9.5 L Hct 29.9 L MCH 25 L [place] % (Auto) 10.9 H Lymph # 0.9 L Potassium 3.5 L Creatinine 1.9 H Glucose 112 H POC Glucose 106 H Cholesterol 203 H HDL Cholesterol 62 H Assessment and Plan 47 YO F Hx MS on Copaxone, reportedly L Huerta's Palsy, stroke according to documents, baseline residual R sided weakness and numbness, HTN/DM2 p/w episode of syncope w/o clear presyncopal sx but no prior PO intake prior in day and LOC < 5 sec w/o premonitory epileptiform activity e.g aura/automatism, tongue bite, incontinence, motor convulsive activity or post episode residual deficit e.g. post ictal state to suggest seizure. Current neuro exam is w/o new deficits/ focality from baseline. I suspect orthostatic/vasovagal syncope. There is no subjective or objective evidence to suggest seizure but reportedly pt had similar episode previously and was admitted to [facility] and diagnosed with seizure and discharged but details of this are not clearly available via documents. MRI Brain/MRA head nonacute. Plan and Recommendation: 1. Telemetry bed w/ Q4 hour neuro checks. Obtain [facility] records if possible 2. Labs: Serum/Urine Tox, UA/UCx, Electrolytes especially Na, Ca, Mg, and Glucose, TSH, 3. AED therapy: No clear indication for AED therapy 4. Orthostatic vital signs 5. Conservative management e.g. tapering of BP meds, Khai Hose, encourage PO intake, etc 6. Cont home Copaxone/ASA.statin. 7. If no clear etiology for syncope identified, pt should be made aware of [place] driving regulations: report date of unexplained loss of consciousness/awareness spell to [facility], refrain from operating a motor vehicle for 6 months after this date, and avoid unsupervised activity particularly around water or heights 8. Pls notify neurologist call or contact centre manager when testing completed for further recs. Today is my last day of service at [facility].
--- NOTE | 2017-06-10 13:13 | Progress Note ---
Assessment and Plan 47-year-old -Syrian female with past medical history significant for hypertension, history of upper GI bleed status post cauterization, diabetes mellitus type 2, MS, CHF, stroke presented to the emergency department complaining that she passed out. Syncope vs TIA - CT/MRI negative - neurology following Per neurology: If no clear etiology for syncope identified, pt should be made aware of [place] driving regulations: report date of unexplained loss of consciousness/awareness spell to [facility], refrain from operating a motor vehicle for 6 months after this date, and avoid unsupervised activity particularly around water or heights History of stroke - supportive care Hypokalemia - replace and monitor Acute kidney injury - likely vasomotor nephropathy UTI, cont abx Depression, consulted psych DM type 2, cont insulin DVT Px, on heparin Subjective Date of service: 06/10/17 Interval history: Pt seen and examined Appeared to be very depressed and tearful about her previous relationship no new complaint today Objective - Constitutional Vitals: Vital Signs - 12hr 06/10/17 04:00 Temperature 98.2 F Pulse Rate 87 Respiratory 20 Rate Blood Pressure 172/85 O2 Sat by Pulse 99 Oximetry General appearance: Present: no acute distress, well-nourished - EENT Eyes: PERRL, EOM intact ENT: hearing intact, clear oral mucosa Ears: bilateral: normal - Neck Neck: supple, normal ROM - Respiratory Respiratory effort: normal Respiratory: bilateral: CTA - Cardiovascular Rhythm: regular Heart Sounds: Present: S1 & S2. Absent: gallop, rub Extremities: pulses intact, No edema, normal color, Full ROM - Gastrointestinal General gastrointestinal: Present: soft, non-tender, non-distended, normal bowel sounds - Integumentary Integumentary: clear, warm, dry - Musculoskeletal Musculoskeletal: 1, strength equal bilaterally - Neurologic Neurologic: other (pronator drift (mild on R), hemiparesis (faint fine motor on R)) - Psychiatric Psychiatric: memory intact, depressed - Labs CBC & Chem 7: 06/10/17 05:46 06/10/17 05:46 Labs: Abnormal lab results 06/09/17 06/10/17 06/10/17 Range/Units 22:19 05:46 05:46 WBC 3.7 L (4.5-11.0) K/mm3 Hgb 9.5 L (10.1-14.3) gm/dl Hct 29.9 L (30.3-42.9) % MCH 25 L (28-32) pg [place] % (Auto) 10.9 H (0.0-7.3) % Lymph # 0.9 L (1.2-5.4) K/mm3 Potassium 3.5 L (3.6-5.0) mmol/L Creatinine 1.9 H (0.7-1.2) mg/dL Glucose 112 H (65-100) mg/dL POC Glucose 106 H (70-105) Cholesterol 203 H (50-199) mg/dL HDL Cholesterol 62 H (40-59) mg/dL - Imaging and cardiology CT Scan - head: report reviewed MRI - head: report reviewed
[2017-06-10] MEDS: ROCEPHIN/NS 1 GM/50 ML 1 GM/50 ML BAG IV SCH (18:40)
[2017-06-10] MEDS: ZOCOR PO SCH (22:10)
[2017-06-10] MEDS: LEVEMIR SUB-Q SCH (22:35)
[2017-06-11] MEDS ORDERED: NACL 0.9% 1000 ML 1,000 ML IV SCH (01:00)
[2017-06-11 03:45] LABS: BUN/Creatinine Ratio 7.77; Calcium 8.5 mg/dL (8.4-10.2); Chloride 104.3 mmol/L (98-107); Potassium 3.7 mmol/L (3.6-5.0)
[2017-06-11] MEDS: HEPARIN SUB-Q SCH ×2 (06:05→13:41)
--- NOTE | 2017-06-11 09:23 | Ultrasound Report ---
ULTRASOUND ABDOMEN INDICATION: CKD. COMPARISON: None similar. FINDINGS: Abdominal sonography suggests slight diffuse nonspecific hepatic coarsening. Grossly preserved hepatic contours without focal suspicious lesions or biliary dilatation. Gallbladder surgically absent. CBD caliber approximately 6-7 mm. Homogenous spleen, 9.8 cm in length. No ascites. Normal imaged pancreas, IVC and abdominal aorta. No hydronephrosis with top normal/borderline increased renal cortical echogenicity. Right kidney is 9.8 x 4.7 x 5 cm the cortical thickness of 1.6 cm. Left kidney is 11.4 x 5.1 x 6.4 cm with cortical thickness of 1.8 cm. CONCLUSION: No acute abnormality with cholecystectomy and possible underlying medical renal disease sonographically, as described. Please correlate. Thank you for the opportunity to participate in this patient's care.
[2017-06-11] MEDS: NORMODYNE PO SCH ×2 (09:45→22:20)
[2017-06-11] MEDS: APRESOLINE PO SCH ×3 (09:46→22:20)
[2017-06-11] MEDS: COLACE PO SCH ×2 (09:48→22:21)
[2017-06-11] MEDS: HALFPRIN EC PO SCH (09:49)
[2017-06-11] MEDS: NOVOLOG SUB-Q SCH ×4 (09:51→22:31)
[2017-06-11] MEDS ORDERED: NORVASC PO SCH (10:00)
--- NOTE | 2017-06-11 12:48 | Consultation ---
History of Present Illness - Reason for Consult Consult date: 06/11/17 Reason for consult: Mental Health Evaluation Requesting physician: JASMIN HERR - Chief Complaint Chief complaint: "I am getting a divorce" - History of Present Psychiatric Illness 47-year-old -Micron[place] female with past medical history significant for hypertension and upper GI bleed, but admitted for syncope. Psychiatry was consulted because of possible depression. Today patient is calm and cooperative during the assessment. She stated currently she is going through a divorce. She has been the past 2.5 years. She stated not having a "clue" that her was going to file for divorce. Currently, she resides in a home they both purchased together and her pays majority of the bills at this time , per the patient (Her does not reside at the home). She stated that she still love her and cannot believe he is doing this to her. She hope that they can work things out in the future. She stated having a therapist at [facility] to help her cope with her pending divorce. She stated that therapy is moving "slowly," but feel that the sessions are worth her time. The patient does not want to take medications, she prefer therapy at this time. She stated that she will be moving to the [facility] soon. Patient is the process of applying for her social security. She denies SI/HI's, AVH's, and rate her depression 3/10 with 10 being the worse. She denies recreational drug use and alcohol consumption. Medications and Allergies Allergies Allergy/AdvReac Type Severity Reaction Status Date / Time amlodipine besylate Allergy Vomiting Verified 01/21/14 20:31 [From Norvasc] hydromorphone HCl Allergy Vomiting Verified 01/21/14 20:31 [From Dilaudid] lisinopril Allergy Unknown Verified 01/21/14 20:31 Home Medications Medication Instructions Recorded Confirmed Last Taken Type Hydralazine HCl [Apresoline TAB] 50 mg PO TID 06/09/17 06/09/17 Unknown History Insulin Glargine [Lantus] 7 units SQ QHS 06/09/17 06/09/17 Unknown History Labetalol [Normodyne] 300 mg PO BID 06/09/17 06/09/17 Unknown History Active Meds: Active Medications Acetaminophen (Tylenol) 650 mg PO Q4H PRN PRN Reason: Pain, Mild (1-3) Acetaminophen/Hydrocodone Bitart ([place] 5/325) 2 each PO Q6H PRN PRN Reason: Pain, Moderate (4-6) Aspirin (Halfprin Ec) 81 mg PO QDAY [facility] Last Admin: 06/11/17 09:49 Dose: 81 mg Bisacodyl (Dulcolax) 10 mg HI QDAY PRN PRN Reason: Constipation Dextrose (D50w (25gm)) 50 ml IV PRN PRN PRN Reason: Hypoglycemia Docusate Sodium (Colace) 100 mg PO BID [facility] Last Admin: 06/11/17 09:48 Dose: Not Given Heparin Sodium (Porcine) (Heparin) 5,000 unit SUB-Q Q8HR [facility] Last Admin: 06/11/17 06:05 Dose: 5,000 unit Hydralazine HCl (Apresoline) 50 mg PO TID [facility] Last Admin: 06/11/17 09:46 Dose: 50 mg Ceftriaxone Sodium (Rocephin/Ns 1 Gm/50 Ml) 1 gm in 50 mls @ 100 mls/hr IV Q24H [facility] PRN Reason: Protocol Last Admin: 06/10/17 18:40 Dose: 100 mls/hr Sodium Chloride (Nacl 0.9% 1000 Ml) 1,000 mls @ 75 mls/hr IV DIRECT [facility] Insulin Aspart (Novolog) 0 units SUB-Q ACHS [facility] PRN Reason: Protocol Last Admin: 06/11/17 12:15 Dose: Not Given Insulin Detemir (Levemir) 7 units SUB-Q QHS [facility] Last Admin: 06/10/17 22:35 Dose: Not Given Labetalol HCl (Normodyne) 300 mg PO BID [facility] Last Admin: 06/11/17 09:45 Dose: Not Given Magnesium Hydroxide (Milk Of Magnesia) 30 ml PO Q4H PRN PRN Reason: Constipation Metoclopramide HCl (Reglan) 10 mg PO Q6H PRN PRN Reason: Nausea And Vomiting Ondansetron HCl (Zofran) 4 mg IV Q8H PRN PRN Reason: N/V unrelieved by Reglan Promethazine HCl (Phenergan) 25 mg HI Q6H PRN PRN Reason: Nausea And Vomiting Simvastatin (Zocor) 20 mg PO QHS [facility] Last Admin: 06/10/17 22:10 Dose: 20 mg Sodium Chloride (Sodium Chloride Flush Syringe 10 Ml) 10 ml IV PRN PRN PRN Reason: LINE FLUSH Past psychiatric history - Past Medical History Past Medical History: diabetes, hypertension Past Surgical History: No surgical history - past Psychiatric treatment and history Psych: Depression psychiatric treatment history: Patient has a therapist (outpatient). She denies a fam psy hx. - Social History Social history: lives with family ( graduate) Mental Status Exam - Vital signs Last Vital Signs Temp 99.2 F 06/11/17 07:30 Pulse 80 06/11/17 10:10 Resp 2 L 06/11/17 10:10 BP 189/89 06/11/17 07:30 Pulse Ox 97 06/11/17 10:10 - Exam Narrative exam: ROS: (+) depression MSE: Appearance: calm, cooperative Behavior: regular eye contact Speech: regular rate and tone Mood: "okay" Affect: congruent to mood Thought Process: linear Thought Content: denies SI/HI's and AVH's Motor Activity: ambulatory Cognition: A/Ox 3 Insight: fair Judgment: fair Results Result Diagrams: 06/10/17 05:46 06/11/17 02:14 Abnormal lab results 06/10/17 06/10/17 06/11/17 Range/Units 12:57 18:21 02:14 Creatinine 1.8 H (0.7-1.2) mg/dL Glucose 105 H (65-100) mg/dL POC Glucose 136 H 114 H (70-105) All other labs normal. Assessment and Plan Assessment and plan: Impression: Historical Dx: Depression. Adjustment DO. Today patient is calm and cooperative during the assessment. She denies SI/HI's. DDx: R/O Bipolar Recommendation/Plan: Continue with [facility] for therapy. Patient was given outpatient psy services information for [facility]. Patient maybe moving to [facility] soon. Discussed the risk and benefits of medication therapy with patient. Patient prefer therapy at this time. Discussed generalized coping skills with the patient.
--- NOTE | 2017-06-11 16:46 | Progress Note ---
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 MRI brain without contrast reported as no acute intracranial abnormality... Sinus disease with extensive bilateral mastoiditis. Transthoracic echocardiogram report is mild concentric left ventricular hypertrophy, estimated EF 50-55%, abnormal left trigger diastolic filling is observed consistent with impaired relaxation, trace TR Ultrasound carotid Dopplers CAROTID DOPPLER COMPLETED, RT <50% STENOSIS BY DOPPLER VELOCITIES, LT 50-79% STENOSIS BY DOPPLER VELOCITIES Abdominal ultrasound showed chronic medical renal disease without mention of obstruction -Syncopal episode most likely autonomic dysfunction due to vasovagal episode -Bilateral mastoiditis without ENT coverage: Continue antibiotics, needs outpatient follow-up -Acute renal failure due to vasomotor nephropathy, last creatinine was 0.9 on now 1.8: Abdominal ultrasound showed medical renal disease, consult nephrology -UTI with sepsis, poa as evident by HR 92 and WBC 3.7: Change IV Rocephin to oral Augmentin -Hypokalemia, treated and resolved -DVT prophylaxis: Subcutaneous heparin -Accelerated hypertension, a thorough review of her medication history reveals that she is allergic to amlodipine which caused shaking, lisinopril caused cough , but she was on losartan/HCT. She just remembered that Dr. Andrade, pcp, (office closed now) took her off the losartan/HCT because her kidneys. -Anxiety disorder, likely depressed mood she is undergoing a divorce: Followed by mental health. -Carotid stenosis? Consulted Vascular surgery Disposition: Anticipate discharge when his renal function improves Full code History Interval history: Patient seen and examined. Follow up on current diagnosis/syncope. Overnight uneventful. No cp, sob, n/v or severe headaches. Imaging, old records, testing, labs, nursing notes reviewed. Hospitalist Physical - Physical exam Narrative exam: GEN: WDWN, NAD, AWAKE, ALERT, ORIENTATED x 3 HEENT: NCAT, PERRL, EOMI, OP CLEAR NECK: SUPPLE, NO THYROMEGALY, NO JVD, NO LAD CVS: RRR, NORMAL S1S2 LUNGS/CHEST: CTA B, NORMAL CHEST EXPANSION B, GOOD AIR ENTRY B ABD: SOFT, NTND, GBS, NO REBOUND OR GUARDING EXT/SKIN: NO SIGNIFICANT EDEMA OR RASH MSK: FROM X 4 EXTREMITIES NEURO: CN 2-12 GROSSLY INTACT, NO FOCAL DEFICITS PSY: CALM, down mood, denies suicidal ideation - Constitutional Vitals: Temp Pulse Resp BP Pulse Ox 98.7 F 78 18 176/77 100 06/11/17 11:30 06/11/17 11:30 06/11/17 11:30 06/11/17 11:30 06/11/17 11:30 General appearance: Present: no acute distress, well-nourished Results - Labs CBC & Chem 7: 06/10/17 05:46 06/11/17 02:14 Labs: Laboratory Last Values WBC 3.7 K/mm3 (4.5-11.0) L 06/10/17 05:46 RBC 3.78 M/mm3 (3.65-5.03) 06/10/17 05:46 Hgb 9.5 gm/dl (10.1-14.3) L 06/10/17 05:46 Hct 29.9 % (30.3-42.9) L 06/10/17 05:46 MCV 79 fl (79-97) 06/10/17 05:46 MCH 25 pg (28-32) L 06/10/17 05:46 MCHC 32 % (30-34) 06/10/17 05:46 RDW 14.1 % (13.2-15.2) 06/10/17 05:46 Plt Count 245 K/mm3 (140-440) 06/10/17 05:46 Lymph % (Auto) 23.3 % (13.4-35.0) 06/10/17 05:46 [place] % (Auto) 10.9 % (0.0-7.3) H 06/10/17 05:46 Eos % (Auto) 0.9 % (0.0-4.3) 06/10/17 05:46 Baso % (Auto) 0.3 % (0.0-1.8) 06/10/17 05:46 Lymph # 0.9 K/mm3 (1.2-5.4) L 06/10/17 05:46 [place] # 0.4 K/mm3 (0.0-0.8) 06/10/17 05:46 Eos # 0.0 K/mm3 (0.0-0.4) 06/10/17 05:46 Baso # 0.0 K/mm3 (0.0-0.1) 06/10/17 05:46 Seg Neutrophils % 64.6 % (40.0-70.0) 06/10/17 05:46 Seg Neutrophils # 2.4 K/mm3 (1.8-7.7) 06/10/17 05:46 PT 13.2 Sec. (12.2-14.9) 06/09/17 13:41 INR 1.01 (0.87-1.13) 06/09/17 13:41 APTT 26.9 Sec. (24.2-36.6) 06/09/17 13:41 D-Dimer 291.93 ng/mlDDU (0-234) H 06/09/17 13:41 Sodium 142 mmol/L (137-145) 06/11/17 02:14 Potassium 3.7 mmol/L (3.6-5.0) 06/11/17 02:14 Chloride 104.3 mmol/L (98-107) 06/11/17 02:14 Carbon Dioxide 24 mmol/L (22-30) 06/11/17 02:14 Anion Gap 17 mmol/L 06/11/17 02:14 BUN 14 mg/dL (7-17) 06/11/17 02:14 Creatinine 1.8 mg/dL (0.7-1.2) H 06/11/17 02:14 Estimated GFR 37 ml/min 06/11/17 02:14 BUN/Creatinine Ratio 7.77 % 06/11/17 02:14 Glucose 105 mg/dL (65-100) H 06/11/17 02:14 POC Glucose 105 (70-105) 06/11/17 11:21 Hemoglobin A1c 5.7 % (4-6) 06/10/17 05:46 Calcium 8.5 mg/dL (8.4-10.2) 06/11/17 02:14 Magnesium 1.80 mg/dL (1.7-2.3) 06/09/17 13:41 Total Bilirubin 0.40 mg/dL (0.1-1.2) 06/09/17 13:41 AST 18 units/L (5-40) 06/09/17 13:41 ALT 13 units/L (7-56) 06/09/17 13:41 Alkaline Phosphatase 60 units/L (35-129) 06/09/17 13:41 Total Creatine Kinase 110 units/L (30-135) 06/09/17 13:41 CK-MB (CK-2) 1.8 ng/mL (0.0-4.0) 06/09/17 13:41 CK-MB (CK-2) Rel Index 1.6 (0-4) 06/09/17 13:41 Troponin T < 0.010 ng/mL (0.00-0.029) 06/09/17 13:41 Total Protein 7.7 g/dL (6.3-8.2) 06/09/17 13:41 Albumin 3.9 g/dL (3.9-5) 06/09/17 13:41 Albumin/Globulin Ratio 1.0 % 06/09/17 13:41 Triglycerides 69 mg/dL (2-149) 06/10/17 05:46 Cholesterol 203 mg/dL (50-199) H 06/10/17 05:46 LDL Cholesterol Direct 128 mg/dL (50-130) 06/10/17 05:46 HDL Cholesterol 62 mg/dL (40-59) H 06/10/17 05:46 Cholesterol/HDL Ratio 3.27 % 06/10/17 05:46 TSH 1.880 mlU/mL (0.270-4.200) 06/09/17 13:41 Urine Color Yellow (Yellow) 06/09/17 14:13 Urine Turbidity Cloudy (Clear) 06/09/17 14:13 Urine pH 5.0 (5.0-7.0) 06/09/17 14:13 Ur Specific [place] 1.018 (1.003-1.030) 06/09/17 14:13 Urine Protein 100 mg/dl mg/dL (Negative) 06/09/17 14:13 Urine Glucose (UA) 50 mg/dL (Negative) 06/09/17 14:13 Urine Ketones Tr mg/dL (Negative) 06/09/17 14:13 Urine Blood Neg (Negative) 06/09/17 14:13 Urine Nitrite Neg (Negative) 06/09/17 14:13 Ur Reducing Substances Not Reportable 06/09/17 14:13 Urine Bilirubin Neg (Negative) 06/09/17 14:13 Urine Ictotest Not Reportable 06/09/17 14:13 Urine Urobilinogen < 2.0 mg/dL (<2.0) 06/09/17 14:13 Ur Leukocyte Esterase Lg (Negative) 06/09/17 14:13 Urine WBC (Auto) 26.0 /HPF (0.0-6.0) H 06/09/17 14:13 Urine RBC (Auto) 25.0 /HPF (0.0-6.0) 06/09/17 14:13 U Epithel Cells (Auto) 34.0 /HPF (0-13.0) H 06/09/17 14:13 Urine Bacteria (Auto) 1+ /HPF (Negative) 06/09/17 14:13 Urine Mucus 1+ /HPF 06/09/17 14:13 Urine HCG, Qual Negative (Negative) 06/09/17 14:13 Salicylates < 0.3 mg/dL (2.8-20.0) L 06/09/17 13:41 Urine Opiates Screen Presumptive negative 06/09/17 14:13 Urine Methadone Screen Presumptive negative 06/09/17 14:13 Acetaminophen < 15.0 ug/mL (10.0-30.0) 06/09/17 13:41 Ur Barbiturates Screen Presumptive negative 06/09/17 14:13 Ur Phencyclidine Scrn Presumptive negative 06/09/17 14:13 Ur Amphetamines Screen Presumptive negative 06/09/17 14:13 U Benzodiazepines Scrn Presumptive negative 06/09/17 14:13 Urine Cocaine Screen Presumptive negative 06/09/17 14:13 U Marijuana (THC) Screen Presumptive negative 06/09/17 14:13 Drugs of Abuse Note Disclamer 06/09/17 14:13 Plasma/Serum Alcohol < 0.01 gm% (0-0.07) 06/09/17 13:41
[2017-06-11] MEDS: AUGMENTIN 875 MG PO SCH (17:13)
[2017-06-11] MEDS: ROCEPHIN/NS 1 GM/50 ML 1 GM/50 ML BAG IV SCH (18:28)
[2017-06-11] MEDS: ZOCOR PO SCH (22:21)
[2017-06-11] MEDS: LEVEMIR SUB-Q SCH (22:24)
[2017-06-12] MEDS: AUGMENTIN 875 MG PO SCH ×3 (00:06→09:05)
[2017-06-12 06:44] LABS: BUN/Creatinine Ratio 8.75; Calcium 8.8 mg/dL (8.4-10.2); Chloride 102.2 mmol/L (98-107); Potassium 3.7 mmol/L (3.6-5.0)
[2017-06-12] MEDS: NOVOLOG SUB-Q SCH ×3 (08:59→16:40)
[2017-06-12] MEDS: NORMODYNE PO SCH (09:04)
[2017-06-12] MEDS: HALFPRIN EC PO SCH (09:04)
[2017-06-12] MEDS: APRESOLINE PO SCH (09:04)
[2017-06-12] MEDS: COLACE PO SCH (09:05)
--- NOTE | 2017-06-12 11:07 | Consultation ---
History of Present Illness - Reason for Consult Consult date: 06/12/17 acute renal failure, chronic renal failure Requesting physician: VINCENT SOLIS - History of Present Illness 43 YO lady with H/O HTN, DM, Obesity, Tobacco smoking, Medication Noncompliance presents to ED for evaluation of chest pain. Pt states that pain is substernal, nonradiating, 8/10 and began this morning and awoke her from sleep shortly after midnight. Pt acknowledges association with shortness of breath. Pt denies association with meals. Pt denies exacerbating or alleviating factors, association with physical exertion. Pt denies productive cough, fever, chills, NVD. found to have cr of 1.6 today Past History Past Medical History: diabetes, hypertension Past Surgical History: No surgical history Social history: , lives with family ([employer] graduate) Family history: hypertension Medications and Allergies Allergies Allergy/AdvReac Type Severity Reaction Status Date / Time amlodipine besylate Allergy Vomiting Verified 01/21/14 20:31 [From Norvasc] hydromorphone HCl Allergy Vomiting Verified 01/21/14 20:31 [From Dilaudid] lisinopril Allergy Unknown Verified 01/21/14 20:31 Home Medications Medication Instructions Recorded Confirmed Last Taken Type Hydralazine HCl [Apresoline TAB] 50 mg PO TID 06/09/17 06/09/17 Unknown History Insulin Glargine [Lantus] 7 units SQ QHS 06/09/17 06/09/17 Unknown History Labetalol [Normodyne] 300 mg PO BID 06/09/17 06/09/17 Unknown History Active Meds: Active Medications Acetaminophen (Tylenol) 650 mg PO Q4H PRN PRN Reason: Pain, Mild (1-3) Acetaminophen/Hydrocodone Bitart ([place] 5/325) 2 each PO Q6H PRN PRN Reason: Pain, Moderate (4-6) Amoxicillin/Clavulanate Potassium (Augmentin 875 Mg) 1 each PO Q12HR [facility] Last Admin: 06/12/17 09:05 Dose: 1 each Aspirin (Halfprin Ec) 81 mg PO QDAY [facility] Last Admin: 06/12/17 09:04 Dose: 81 mg Bisacodyl (Dulcolax) 10 mg CO QDAY PRN PRN Reason: Constipation Dextrose (D50w (25gm)) 50 ml IV PRN PRN PRN Reason: Hypoglycemia Docusate Sodium (Colace) 100 mg PO BID [facility] Last Admin: 06/12/17 09:05 Dose: 100 mg Heparin Sodium (Porcine) (Heparin) 5,000 unit SUB-Q Q12HR [facility] Hydralazine HCl (Apresoline) 50 mg PO TID [facility] Last Admin: 06/12/17 09:04 Dose: 50 mg Insulin Aspart (Novolog) 0 units SUB-Q ACHS [facility] PRN Reason: Protocol Last Admin: 06/12/17 08:59 Dose: Not Given Insulin Detemir (Levemir) 7 units SUB-Q QHS [facility] Last Admin: 06/11/17 22:24 Dose: 7 units Labetalol HCl (Normodyne) 300 mg PO BID [facility] Last Admin: 06/12/17 09:04 Dose: 300 mg Magnesium Hydroxide (Milk Of Magnesia) 30 ml PO Q4H PRN PRN Reason: Constipation Metoclopramide HCl (Reglan) 10 mg PO Q6H PRN PRN Reason: Nausea And Vomiting Ondansetron HCl (Zofran) 4 mg IV Q8H PRN PRN Reason: N/V unrelieved by Reglan Promethazine HCl (Phenergan) 25 mg CO Q6H PRN PRN Reason: Nausea And Vomiting Simvastatin (Zocor) 20 mg PO QHS [facility] Last Admin: 06/11/17 22:21 Dose: 20 mg Sodium Chloride (Sodium Chloride Flush Syringe 10 Ml) 10 ml IV PRN PRN PRN Reason: LINE FLUSH Review of Systems Constitutional: fatigue, weakness, malaise Exam - Vital Signs Vital signs: Vital Signs BP 126/82 06/09/17 12:51 - Physical Exam Narrative exam: General appearance: Present: mild distress - EENT Eyes: Present: PERRL ENT: hearing intact, clear oral mucosa - Neck Neck: Present: supple, normal ROM - Respiratory Respiratory effort: normal Respiratory: bilateral: CTA - Cardiovascular Heart Sounds: Present: S1 & S2. Absent: rub, click - Extremities Extremities: pulses symmetrical, No edema Peripheral Pulses: within normal limits - Abdominal General gastrointestinal: Present: soft, non-tender, non-distended, normal bowel sounds Female genitourinary: Present: normal - Integumentary Integumentary: Present: clear, warm, dry - Musculoskeletal Musculoskeletal: gait normal, strength equal bilaterally - Psychiatric Psychiatric: appropriate mood/affect, intact judgment & insight - Neurologic Neurologic: CNII-XII intact, moves all extremities Results - Lab Results 06/10/17 05:46 06/12/17 05:57 Most recent lab results Calcium 8.8 mg/dL (8.4-10.2) 06/12/17 05:57 Magnesium 1.80 mg/dL (1.7-2.3) 06/09/17 13:41 Assessment and Plan Impression: * CHENCHO on likely CKD due to HTN/DM * Accelerated HTN * diabetes mellitus * anxiety * uti Plan: * renal us and lytes noted * likely ckd due to HTN/DM with acute component due to UTI * continue abx for full 7day course * ok to dc from renal standpoint with outpatient follow up once bp controlled * avoid nsaids, nephrotoxins * will follow up prn
[2017-06-12] MEDS ORDERED: CATAPRES PO SCH (12:00)
[2017-06-12] MEDS ORDERED: APRESOLINE PO SCH (14:00)
--- NOTE | 2017-06-12 14:02 | Discharge Summary ---
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 psych Notified:: julio Phone number called:: [phone] Was contact made?: Yes Time called:: 14:14 06/11/17 14:47 Consult to Physician [CONS] Routine Consulting Provider: DIANNE LIM Reason For Exam: ARF Place consult to:: Mathew MCDANIEL Notified:: OFFICE Was contact made?: Yes Time called:: 15:20 06/11/17 16:59 Consult to Physician [CONS] Routine Consulting Provider: MIGUEL A RODRIGUEZ Reason For Exam: left carotid stenosis Place consult to:: Daphney MCDANIEL Notified:: OFFICE Phone number called:: [phone] Was contact made?: Yes If yes, spoke with:: CURRY Time called:: 08:31 Comment:: CONSULT COMPLETED - MORGAN Primary care physician: REPULPING SUPERVISOR Hospitalization Condition: Stable Hospital course: Patient is a 47-year-old woman with 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 MRI brain without contrast reported as no acute intracranial abnormality... Sinus disease with extensive bilateral mastoiditis. Transthoracic echocardiogram report is mild concentric left ventricular hypertrophy, estimated EF 50-55%, abnormal left trigger diastolic filling is observed consistent with impaired relaxation, trace TR Ultrasound carotid Dopplers CAROTID DOPPLER COMPLETED, RT <50% STENOSIS BY DOPPLER VELOCITIES, LT 50-79% STENOSIS BY DOPPLER VELOCITIES Abdominal ultrasound showed chronic medical renal disease without mention of obstruction -Syncopal episode most likely autonomic dysfunction due to vasovagal episode -Bilateral mastoiditis without ENT coverage: Continue antibiotics, needs outpatient follow-up -Acute renal failure due to vasomotor nephropathy, last creatinine was 0.9 on now 1.8: Abdominal ultrasound showed medical renal disease, consult nephrology -UTI with sepsis, poa as evident by HR 92 and WBC 3.7: Change IV Rocephin to oral Augmentin -Hypokalemia, treated and resolved -DVT prophylaxis: Subcutaneous heparin -Accelerated hypertension, a thorough review of her medication history reveals that she is allergic to amlodipine which caused shaking, lisinopril caused cough , but she was on losartan/HCT. She just remembered that Dr. Andrade, pcp, [phone] (office closed now) took her off the losartan/HCT because her kidneys. -Anxiety disorder, likely depressed mood she is undergoing a divorce: Followed by mental health. -Carotid stenosis? Consulted Vascular surgery Disposition: Anticipate discharge when his renal function improves Full code per Renal Dr. Sun, "Impression: * CHENCHO on likely CKD due to HTN/DM * Accelerated HTN * diabetes mellitus * anxiety * uti Plan: * renal us and lytes noted * likely ckd due to HTN/DM with acute component due to UTI * continue abx for full 7day course * ok to dc from renal standpoint with outpatient follow up once bp controlled * avoid nsaids, nephrotoxins * will follow up prn" Added Procardia xl 60mg/day, d/w patient Disposition: DC-30 STILL A PATIENT Time spent for discharge: 35 minutes Core Measure Documentation - Palliative Care Palliative Care/ Comfort Measures: Not Applicable - Core Measures Any of the following diagnoses?: none - VTE Discharge Requirements Deep Vein Thrombosis/Pulmonary Embolism Present on Admission: No Has pt received <5 days of overlap therapy or INR<2.0: No Anticoagulant overlap therapy prescribed at discharge: No Contraindication No Overlap Therapy order at DC: Not Indicated Exam - Physical Exam Narrative exam: GEN: WDWN, NAD, AWAKE, ALERT, ORIENTATED x 3 HEENT: NCAT, PERRL, EOMI, OP CLEAR NECK: SUPPLE, NO THYROMEGALY, NO JVD, NO LAD CVS: RRR, NORMAL S1S2 LUNGS/CHEST: CTA B, NORMAL CHEST EXPANSION B, GOOD AIR ENTRY B ABD: SOFT, NTND, GBS, NO REBOUND OR GUARDING EXT/SKIN: NO SIGNIFICANT EDEMA OR RASH MSK: FROM X 4 EXTREMITIES NEURO: CN 2-12 GROSSLY INTACT, NO FOCAL DEFICITS PSY: CALM, down mood, denies suicidal ideation - Constitutional Vitals: Temp Pulse Resp BP Pulse Ox 99 F 75 18 177/82 99 06/12/17 12:00 06/12/17 12:00 06/12/17 12:00 06/12/17 12:00 06/12/17 12:00 Plan Activity: other (no strenous activites until cleared by PCP. ) Diet: low salt, diabetic Special Instructions: record daily BP diary Follow up with: PRIMARY CARE, [Primary Care Provider] - 3-5 Days DIANNE LIM MD [Staff Physician] - 7 Days YADY BLACKWELL MD [Staff Physician] - 7 Days Prescriptions: Amoxicillin/K Clav Tab [Augmentin 875MG TAB] 1 each PO Q12HR #12 tablet Docusate Sodium [Colace CAP] 100 mg PO BID #60 capsule NIFEdipine XL [Procardia Xl] 60 mg PO QDAY #30 tablet
--- NOTE | 2017-06-12 14:07 | Progress Note ---
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 MRI brain without contrast reported as no acute intracranial abnormality... Sinus disease with extensive bilateral mastoiditis. Transthoracic echocardiogram report is mild concentric left ventricular hypertrophy, estimated EF 50-55%, abnormal left trigger diastolic filling is observed consistent with impaired relaxation, trace TR Ultrasound carotid Dopplers CAROTID DOPPLER COMPLETED, RT <50% STENOSIS BY DOPPLER VELOCITIES, LT 50-79% STENOSIS BY DOPPLER VELOCITIES Abdominal ultrasound showed chronic medical renal disease without mention of obstruction -Syncopal episode most likely autonomic dysfunction due to vasovagal episode -Bilateral mastoiditis without ENT coverage: Continue antibiotics, needs outpatient follow-up -Acute renal failure due to vasomotor nephropathy, last creatinine was 0.9 on now 1.8: Abdominal ultrasound showed medical renal disease, consult nephrology -UTI with sepsis, poa as evident by HR 92 and WBC 3.7: Change IV Rocephin to oral Augmentin -Hypokalemia, treated and resolved -DVT prophylaxis: Subcutaneous heparin -Accelerated hypertension, a thorough review of her medication history reveals that she is allergic to amlodipine which caused shaking, lisinopril caused cough , but she was on losartan/HCT. She just remembered that Dr. Andrade, pcp, (office closed now) took her off the losartan/HCT because her kidneys. -Anxiety disorder, likely depressed mood she is undergoing a divorce: Followed by mental health. -Carotid stenosis? Consulted Vascular surgery Disposition: Anticipate discharge when his renal function improves and cleared by Renal Full code BP is very labile, sbp was 177 then went back up to 191. I don't want to increase her labetalol or hydralazine because they make her sleep and uncomfortable. History Interval history: Patient seen and examined. Follow up on current diagnosis/syncope. Overnight uneventful. No cp, sob, n/v or severe headaches. Imaging, old records, testing, labs, nursing notes reviewed. Hospitalist Physical - Physical exam Narrative exam: GEN: WDWN, NAD, AWAKE, ALERT, ORIENTATED x 3 HEENT: NCAT, PERRL, EOMI, OP CLEAR NECK: SUPPLE, NO THYROMEGALY, NO JVD, NO LAD CVS: RRR, NORMAL S1S2 LUNGS/CHEST: CTA B, NORMAL CHEST EXPANSION B, GOOD AIR ENTRY B ABD: SOFT, NTND, GBS, NO REBOUND OR GUARDING EXT/SKIN: NO SIGNIFICANT EDEMA OR RASH MSK: FROM X 4 EXTREMITIES NEURO: CN 2-12 GROSSLY INTACT, NO FOCAL DEFICITS PSY: CALM, down mood, denies suicidal ideation - Constitutional Vitals: Temp Pulse Resp BP Pulse Ox 99 F 75 18 177/82 99 06/12/17 12:00 06/12/17 12:00 06/12/17 12:00 06/12/17 12:00 06/12/17 12:00 General appearance: Present: no acute distress, well-nourished Results - Labs CBC & Chem 7: 06/10/17 05:46 06/12/17 05:57 Labs: Laboratory Last Values WBC 3.7 K/mm3 (4.5-11.0) L 06/10/17 05:46 RBC 3.78 M/mm3 (3.65-5.03) 06/10/17 05:46 Hgb 9.5 gm/dl (10.1-14.3) L 06/10/17 05:46 Hct 29.9 % (30.3-42.9) L 06/10/17 05:46 MCV 79 fl (79-97) 06/10/17 05:46 MCH 25 pg (28-32) L 06/10/17 05:46 MCHC 32 % (30-34) 06/10/17 05:46 RDW 14.1 % (13.2-15.2) 06/10/17 05:46 Plt Count 245 K/mm3 (140-440) 06/10/17 05:46 Lymph % (Auto) 23.3 % (13.4-35.0) 06/10/17 05:46 [place] % (Auto) 10.9 % (0.0-7.3) H 06/10/17 05:46 Eos % (Auto) 0.9 % (0.0-4.3) 06/10/17 05:46 Baso % (Auto) 0.3 % (0.0-1.8) 06/10/17 05:46 Lymph # 0.9 K/mm3 (1.2-5.4) L 06/10/17 05:46 [place] # 0.4 K/mm3 (0.0-0.8) 06/10/17 05:46 Eos # 0.0 K/mm3 (0.0-0.4) 06/10/17 05:46 Baso # 0.0 K/mm3 (0.0-0.1) 06/10/17 05:46 Seg Neutrophils % 64.6 % (40.0-70.0) 06/10/17 05:46 Seg Neutrophils # 2.4 K/mm3 (1.8-7.7) 06/10/17 05:46 PT 13.2 Sec. (12.2-14.9) 06/09/17 13:41 INR 1.01 (0.87-1.13) 06/09/17 13:41 APTT 26.9 Sec. (24.2-36.6) 06/09/17 13:41 D-Dimer 291.93 ng/mlDDU (0-234) H 06/09/17 13:41 Sodium 139 mmol/L (137-145) 06/12/17 05:57 Potassium 3.7 mmol/L (3.6-5.0) 06/12/17 05:57 Chloride 102.2 mmol/L (98-107) 06/12/17 05:57 Carbon Dioxide 23 mmol/L (22-30) 06/12/17 05:57 Anion Gap 18 mmol/L 06/12/17 05:57 BUN 14 mg/dL (7-17) 06/12/17 05:57 Creatinine 1.6 mg/dL (0.7-1.2) H 06/12/17 05:57 Estimated GFR 42 ml/min 06/12/17 05:57 BUN/Creatinine Ratio 8.75 % 06/12/17 05:57 Glucose 90 mg/dL (65-100) 06/12/17 05:57 POC Glucose 110 (70-105) H 06/11/17 21:54 Hemoglobin A1c 5.7 % (4-6) 06/10/17 05:46 Calcium 8.8 mg/dL (8.4-10.2) 06/12/17 05:57 Magnesium 1.80 mg/dL (1.7-2.3) 06/09/17 13:41 Total Bilirubin 0.40 mg/dL (0.1-1.2) 06/09/17 13:41 AST 18 units/L (5-40) 06/09/17 13:41 ALT 13 units/L (7-56) 06/09/17 13:41 Alkaline Phosphatase 60 units/L (35-129) 06/09/17 13:41 Total Creatine Kinase 110 units/L (30-135) 06/09/17 13:41 CK-MB (CK-2) 1.8 ng/mL (0.0-4.0) 06/09/17 13:41 CK-MB (CK-2) Rel Index 1.6 (0-4) 06/09/17 13:41 Troponin T < 0.010 ng/mL (0.00-0.029) 06/09/17 13:41 Total Protein 7.7 g/dL (6.3-8.2) 06/09/17 13:41 Albumin 3.9 g/dL (3.9-5) 06/09/17 13:41 Albumin/Globulin Ratio 1.0 % 06/09/17 13:41 Triglycerides 69 mg/dL (2-149) 06/10/17 05:46 Cholesterol 203 mg/dL (50-199) H 06/10/17 05:46 LDL Cholesterol Direct 128 mg/dL (50-130) 06/10/17 05:46 HDL Cholesterol 62 mg/dL (40-59) H 06/10/17 05:46 Cholesterol/HDL Ratio 3.27 % 06/10/17 05:46 TSH 1.880 mlU/mL (0.270-4.200) 06/09/17 13:41 Urine Color Yellow (Yellow) 06/09/17 14:13 Urine Turbidity Cloudy (Clear) 06/09/17 14:13 Urine pH 5.0 (5.0-7.0) 06/09/17 14:13 Ur Specific [place] 1.018 (1.003-1.030) 06/09/17 14:13 Urine Protein 100 mg/dl mg/dL (Negative) 06/09/17 14:13 Urine Glucose (UA) 50 mg/dL (Negative) 06/09/17 14:13 Urine Ketones Tr mg/dL (Negative) 06/09/17 14:13 Urine Blood Neg (Negative) 06/09/17 14:13 Urine Nitrite Neg (Negative) 06/09/17 14:13 Ur Reducing Substances Not Reportable 06/09/17 14:13 Urine Bilirubin Neg (Negative) 06/09/17 14:13 Urine Ictotest Not Reportable 06/09/17 14:13 Urine Urobilinogen < 2.0 mg/dL (<2.0) 06/09/17 14:13 Ur Leukocyte Esterase Lg (Negative) 06/09/17 14:13 Urine WBC (Auto) 26.0 /HPF (0.0-6.0) H 06/09/17 14:13 Urine RBC (Auto) 25.0 /HPF (0.0-6.0) 06/09/17 14:13 U Epithel Cells (Auto) 34.0 /HPF (0-13.0) H 06/09/17 14:13 Urine Bacteria (Auto) 1+ /HPF (Negative) 06/09/17 14:13 Urine Mucus 1+ /HPF 06/09/17 14:13 Urine HCG, Qual Negative (Negative) 06/09/17 14:13 Salicylates < 0.3 mg/dL (2.8-20.0) L 06/09/17 13:41 Urine Opiates Screen Presumptive negative 06/09/17 14:13 Urine Methadone Screen Presumptive negative 06/09/17 14:13 Acetaminophen < 15.0 ug/mL (10.0-30.0) 06/09/17 13:41 Ur Barbiturates Screen Presumptive negative 06/09/17 14:13 Ur Phencyclidine Scrn Presumptive negative 06/09/17 14:13 Ur Amphetamines Screen Presumptive negative 06/09/17 14:13 U Benzodiazepines Scrn Presumptive negative 06/09/17 14:13 Urine Cocaine Screen Presumptive negative 06/09/17 14:13 U Marijuana (THC) Screen Presumptive negative 06/09/17 14:13 Drugs of Abuse Note Disclamer 06/09/17 14:13 Plasma/Serum Alcohol < 0.01 gm% (0-0.07) 06/09/17 13:41
[2017-06-12] MEDS ORDERED: PROCARDIA XL PO SCH (15:00)
--- NOTE | 2017-06-12 15:44 | Progress Note ---
Subjective - Reason for Consult Consult date: 06/12/17 Reason for consult: follow up - Chief Complaint Chief complaint: "Does everybody know my business?" 47-year-old -Pak[place] female with past medical history significant for hypertension and upper GI bleed, but admitted for syncope. Psychiatry was consulted because of possible depression. Today patient is calm and cooperative during the assessment. She states she is grieving and feels betrayed since her unexpectedly asked her for a divorce. She discussed how her promised another female the future she was supposed to have. She states the grief is harder to handle since she is older and has health problems. She denies suicidal ideation. She is interested in more intensive therapy if available. Mental Status Exam - Vital signs Last Vital Signs Temp 99 F 06/12/17 12:00 Pulse 75 06/12/17 12:00 Resp 18 06/12/17 12:00 BP 193/83 06/12/17 14:29 Pulse Ox 99 06/12/17 12:00 Assessment and Plan Narrative exam: ROS: (+) depression MSE: Appearance: calm, cooperative Behavior: regular eye contact Speech: regular rate and tone Mood: sad Affect: congruent to mood. tearful Thought Process: linear Thought Content: denies SI/HI's and AVH's Motor Activity: ambulatory Cognition: A/Ox 3 Insight: fair Judgment: fair Assessment and plan: Impression: Historical Dx: Depression. Adjustment DO. Today patient is calm and cooperative during the assessment. She denies SI/HI's. DDx: R/O Bipolar Recommendation/Plan: She would benefit from a structured and supportive environment such as partial hospitalization. She does not meet inpatient hospitalization criteria. She has an outpatient counselor but it is what sounds like an EAP program. Continue with [facility] for therapy if [facility] is not available or accessible. Patient was given outpatient psy services information for [facility]. Patient maybe moving to [facility] soon. Discussed the risk and benefits of medication therapy with patient. Patient prefers therapy at this time. Purpose of medication for depression was discussed. Discussed generalized coping skills with the patient.
[2017-06-12] MEDS ORDERED: HEPARIN SUB-Q SCH (16:20)
--- NOTE | 2017-06-12 16:57 | Consultation ---
History of Present Illness - Reason for Consult Consult date: 06/12/17 Carotid Stenosis - History of Present Illness This patient is a 43-year-old -[place] female that was admitted via the emergency room on 06/09/2017 due to a syncopal episode. This is suspected to be related to a vasovagal event. However, a stroke workup was initiated. An MRI of the brain showed no acute intracranial abnormality. A carotid duplex suggested approximately ~50% stenosis of the right common carotid artery with a 50-79% stenosis of the left internal carotid artery. A vascular surgery consult was requested to further evaluate. The patient has had a similar episodes in the past. She states she was diagnosed with a TIA in December of this year at [facility], [place]. She states she was told it was related to hypertension. She denied taking antiplatelet or statin therapy as an outpatient. She did complain of numbness to her right hand although this is pre-existing and has not changed with this episode. She denies weakness to either side of her upper or lower extremities. Past History Past Medical History: diabetes, hypertension, other (multiple sclerosis) Past Surgical History: No surgical history Social history: , lives with family ([employer] graduate) Family history: hypertension Medications and Allergies Allergies Allergy/AdvReac Type Severity Reaction Status Date / Time amlodipine besylate Allergy Vomiting Verified 01/21/14 20:31 [From Norvasc] hydromorphone HCl Allergy Vomiting Verified 01/21/14 20:31 [From Dilaudid] lisinopril Allergy Unknown Verified 01/21/14 20:31 Home Medications Medication Instructions Recorded Confirmed Last Taken Type Hydralazine HCl [Apresoline TAB] 50 mg PO TID 06/09/17 06/09/17 Unknown History Insulin Glargine [Lantus VIAL] 7 units SQ QHS 06/09/17 06/09/17 Unknown History Labetalol [Normodyne TAB] 300 mg PO BID 06/09/17 06/09/17 Unknown History Acetaminophen [Acetaminophen TAB] 325 mg PO Q4H PRN #30 tablet 06/12/17 Unknown Rx Amoxicillin/K Clav Tab [Augmentin 1 each PO Q12HR #12 tablet 06/12/17 Unknown Rx 875MG TAB] Docusate Sodium [Colace CAP] 100 mg PO BID #60 capsule 06/12/17 Unknown Rx NIFEdipine XL [Procardia Xl] 60 mg PO QDAY #30 tablet 06/12/17 Unknown Rx Active Meds: Active Medications Acetaminophen (Tylenol) 650 mg PO Q4H PRN PRN Reason: Pain, Mild (1-3) Acetaminophen/Hydrocodone Bitart ([place] 5/325) 2 each PO Q6H PRN PRN Reason: Pain, Moderate (4-6) Amoxicillin/Clavulanate Potassium (Augmentin 875 Mg) 1 each PO Q12HR [facility] Last Admin: 06/12/17 09:05 Dose: 1 each Aspirin (Halfprin Ec) 81 mg PO QDAY [facility] Last Admin: 06/12/17 09:04 Dose: 81 mg Bisacodyl (Dulcolax) 10 mg MA QDAY PRN PRN Reason: Constipation Clonidine HCl (Catapres) 0.1 mg PO Q12HR [facility] Last Admin: 06/12/17 14:29 Dose: 0.1 mg Dextrose (D50w (25gm)) 50 ml IV PRN PRN PRN Reason: Hypoglycemia Docusate Sodium (Colace) 100 mg PO BID [facility] Last Admin: 06/12/17 09:05 Dose: 100 mg Heparin Sodium (Porcine) (Heparin) 5,000 unit SUB-Q Q12HR [facility] Hydralazine HCl (Apresoline) 100 mg PO TID [facility] Last Admin: 06/12/17 14:18 Dose: 100 mg Insulin Aspart (Novolog) 0 units SUB-Q ACHS [facility] PRN Reason: Protocol Last Admin: 06/12/17 16:40 Dose: Not Given Insulin Detemir (Levemir) 7 units SUB-Q QHS [facility] Last Admin: 06/11/17 22:24 Dose: 7 units Labetalol HCl (Normodyne) 300 mg PO BID [facility] Last Admin: 06/12/17 09:04 Dose: 300 mg Magnesium Hydroxide (Milk Of Magnesia) 30 ml PO Q4H PRN PRN Reason: Constipation Metoclopramide HCl (Reglan) 10 mg PO Q6H PRN PRN Reason: Nausea And Vomiting Nifedipine (Procardia Xl) 60 mg PO QDAY [facility] Last Admin: 06/12/17 14:18 Dose: 60 mg Ondansetron HCl (Zofran) 4 mg IV Q8H PRN PRN Reason: N/V unrelieved by Reglan Promethazine HCl (Phenergan) 25 mg MA Q6H PRN PRN Reason: Nausea And Vomiting Simvastatin (Zocor) 20 mg PO QHS [facility] Last Admin: 06/11/17 22:21 Dose: 20 mg Sodium Chloride (Sodium Chloride Flush Syringe 10 Ml) 10 ml IV PRN PRN PRN Reason: LINE FLUSH Review of Systems All systems: negative Exam - Constitutional Vitals: Temp Pulse Resp BP Pulse Ox 99 F 75 18 193/83 99 06/12/17 12:00 06/12/17 12:00 06/12/17 12:00 06/12/17 14:29 06/12/17 12:00 General appearance: Present: no acute distress - EENT Eyes: Present: EOM intact ENT: hearing intact - Neck Neck: Present: supple - Respiratory Respiratory effort: normal - Extremities Extremities: no ischemia, normal temperature - Psychiatric Psychiatric: no appropriate mood/affect (mildly depressed), intact judgment & insight, cooperative - Neurologic Neurologic: no focal deficits (other than numbness to her right hand (which is pre-existing and unchanged)) Results - Labs CBC & Chem 7: 06/10/17 05:46 06/12/17 05:57 Labs: Abnormal lab results 06/11/17 06/12/17 Range/Units 21:54 05:57 Creatinine 1.6 H (0.7-1.2) mg/dL POC Glucose 110 H (70-105) Assessment and Plan This patient was admitted with a syncopal episode. Duplex suggests that she has bilateral carotid artery stenosis that below surgical threshold. Would agree with antiplatelet, and statin therapy. Recommend that she continue this as an outpatient. Suggest she have a follow-up carotid duplex in approximately 6 months, and annually thereafter. Discussed with the patient. - Patient Problems (1) Asymptomatic carotid artery stenosis Current Visit: Yes Status: Acute Qualifiers: Laterality: L (2) Hypertension Current Visit: Yes Status: Acute Qualifiers: Hypertension type: H (3) Diabetes Current Visit: Yes Status: Acute Qualifiers: Diabetes mellitus type: D Diabetes mellitus complication status: D Diabetes mellitus complication detail: D Diabetic retinopathy severity: D Proliferative retinopathy type: P Diabetes mellitus macular edema: D Diabetes mellitus joint terminal attack controller insulin use: D Laterality: L Chronic kidney disease stage: C (4) Multiple sclerosis Current Visit: Yes Status: Acute (5) Renal insufficiency Current Visit: Yes Status: Acute (6) Syncope Current Visit: Yes Status: Acute Qualifiers: Syncope type: unspecified Encounter type: E Qualified Code(s): R55 - Syncope and collapse
[2017-06-12 17:20] VITALS: BP 160/79
--- NOTE | 2017-06-14 10:22 | Vascular Lab Report ---
CAROTID DUPLEX STUDY: RIGHT PSVEDV CCA PROX:[id number] CCA DIST: 6715 ICA PROX: 8431 ICA MID: 7627 ICA DIST: 9339 ECA: 88 VERT: 55 19 LEFT PSVEDV CCA PROX:[id number] CCA DIST: 7315 ICA PROX: 5821 ICA MID:[id number] ICA DIST:15855 ECA: 85 94 23 REASON FOR EXAM: Stroke. COMMENTS ON THE RIGHT: Doppler frequency analysis is consistent with 16 to 49 percent diameter reduction of the internal carotid artery. Minimal amount of plaque is seen. The common carotid artery is patent. The external carotid artery is patent. The vertebral artery has antegrade flow. COMMENTS ON THE LEFT: Doppler frequency analysis is consistent with 50 to 79 percent diameter reduction by velocity criteria only of the internal carotid artery. Minimal amount of plaque is seen. The common carotid artery is patent. The external carotid artery is patent. The vertebral artery has antegrade flow. IMPRESSION: 16 to 49 percent diameter reduction in the right internal carotid artery 50 to 79 percent diameter reduction in the left internal carotid artery by velocity criteria only. No actual stenosis seen in grayscale. Clinical correlation is recommended Followup studies could be considered if clinically warranted such as CTA or MRA
== END 2017-06-12 21:10 | disposition home or self-care (01) | DRG 871 ==
LOC: ED 12:37 → 4A 16:24
PROVIDERS: ADMIT Internal Medicine; ATTEND Internal Medicine
DX: A41.9 Sepsis, unspecified organism (principal); N17.0 Acute kidney failure with tubular necrosis; G45.9 Transient cerebral ischemic attack, unspecified; N39.0 Urinary tract infection, site not specified; F45.8 Other somatoform disorders; E11.9 Type 2 diabetes mellitus without complications; E87.6 Hypokalemia; D64.9 Anemia, unspecified; F41.9 Anxiety disorder, unspecified; G51.0 Bell's palsy; H70.93 Unspecified mastoiditis, bilateral; F32.9 Major depressive disorder, single episode, unspecified; I65.29 Occlusion and stenosis of unspecified carotid artery; Z82.49 Family history of ischemic heart disease and other diseases of the circulatory system; E66.9 Obesity, unspecified; F17.210 Nicotine dependence, cigarettes, uncomplicated; Z91.19 Patient's noncompliance with other medical treatment and regimen; Z79.899 Other long term (current) drug therapy; I05.0 Rheumatic mitral stenosis; I11.0 Hypertensive heart disease with heart failure; Z90.49 Acquired absence of other specified parts of digestive tract; Z86.73 Personal history of transient ischemic attack (TIA), and cerebral infarction without residual deficits
CPT/HCPCS: 36415; 70450; 70544; 70551; 71010; 76700; 80048; 80053; 80061; 80307; 80320; 81001; 81025; 82550; 82553; 82962; 83036; 83735; 84443; 84484; 85025; 85379; 85610; 85730; 87086; 93005; 93010; 93306; 93880; 96374; G0480; J0696; J1644; J1818

== ENCOUNTER 2017-12-17 10:18 | Emergency (ER) | payer SELFPAY ==
[2017-12-17 12:04] LABS: Basophils % (Auto) 0.5 % (0.0-1.8); Eosinophils # (Auto) 0.1 K/mm3 (0.0-0.4); Eosinophils % (Auto) 1.2 % (0.0-4.3); Hematocrit 29.1 % (30.3-42.9); Hemoglobin 9.1 gm/dl (10.1-14.3); Lymphocytes # (Auto) 1.2 K/mm3 (1.2-5.4); Lymphocytes % (Auto) 15.3 % (13.4-35.0); Mean Corpuscular HGB Conc 31 % (30-34); Monocytes # (Auto) 0.5 K/mm3 (0.0-0.8); Monocytes % (Auto) 6.8 % (0.0-7.3); Platelet Count 285 K/mm3 (140-440); Red Blood Count 4.29 M/mm3 (3.65-5.03); Red Cell Distribution Width 17.3 % (13.2-15.2)
[2017-12-17 12:05] LABS: Mean Corpuscular Hemoglobin 21 pg (28-32); Mean Corpuscular Volume 68 fl (79-97)
[2017-12-17 12:17] LABS: Calcium 8.3 mg/dL (8.4-10.2)
[2017-12-17] MEDS ORDERED: CATAPRES PO ONE (14:31)
[2017-12-17] MEDS ORDERED: CATAPRES ONE (14:33)
[2017-12-17] MEDS ORDERED: NORMODYNE IV ONE (15:26)
--- NOTE | 2017-12-17 16:21 | XRay Report ---
FINAL REPORT PROCEDURE: Chest. TECHNIQUE: Portable AP view. HISTORY: Chest congestion, cough, hypertension. COMPARISON: Chest 06/09/2017. FINDINGS: The heart size is mildly enlarged. The left lung is clear. There is a faint opacity at the right lung base which could represent early consolidation. The remainder of the right lung is clear. There are no pleural effusions. The soft tissues and regional skeleton are unremarkable. IMPRESSION: Question early consolidation at the right lung base. Mild cardiomegaly.
[2017-12-17] MEDS ORDERED: ZITHROMAX PO ONE (17:27)
--- NOTE | 2017-12-17 17:35 | Emergency Department Report ---
HPI - General Chief Complaint: High BP Time Seen by Provider: 12/17/17 15:23 - HPI HPI: The patient is a 47-year-old female who presents for evaluation of elevated blood pressure. On interview the patient admits to a nonproductive cough for the past 2 days, mild in severity, without exacerbating or relieving factors. She has experienced elevated blood pressure for the past one day. She shares that she presented to the ED because she was sent for evaluation from her PCPs office after being found to have significantly elevated blood pressure earlier today. She admits to failure to take her antihypertensive medication this morning. The patient denies fever, headache, neck pain, paresthesias, focal motor weakness, blurry vision, ear pain, tinnitus, chest pain, hemoptysis, dyspnea, abdominal pain, decreased urination, or recent URI or diarrhea. ED Past Medical Hx - Past Medical History Hx Hypertension: Yes Hx Congestive Heart Failure: No Hx Diabetes: Yes Hx Asthma: No Hx COPD: No Hx HIV: No - Surgical History Hx Cholecystectomy: Yes - Social History Smoking Status: Never Smoker Substance Use Type: None - Medications Home Medications: Home Medications Medication Instructions Recorded Confirmed Last Taken Type Hydralazine HCl [Apresoline TAB] 50 mg PO TID 06/09/17 06/09/17 Unknown History Insulin Glargine [Lantus VIAL] 7 units SQ QHS 06/09/17 06/09/17 Unknown History Labetalol [Normodyne TAB] 300 mg PO BID 06/09/17 06/09/17 Unknown History Acetaminophen [Acetaminophen TAB] 325 mg PO Q4H PRN #30 tablet 06/12/17 Unknown Rx Amoxicillin/K Clav Tab [Augmentin 1 each PO Q12HR #12 tablet 06/12/17 Unknown Rx 875MG TAB] Docusate Sodium [Colace CAP] 100 mg PO BID #60 capsule 06/12/17 Unknown Rx NIFEdipine XL [Procardia Xl] 60 mg PO QDAY #30 tablet 06/12/17 Unknown Rx Azithromycin [Zithromax Z-REGGIE] 250 mg PO QDAY #6 tablet 12/17/17 Unknown Rx Benzonatate [Tessalon Perles] 100 mg PO Q8HR #20 capsule 12/17/17 Unknown Rx ED Review of Systems ROS: Stated complaint: FLU LIKE SYMPTOMS Other details as noted in HPI Constitutional: denies: fever ENT: denies: throat or neck pain Respiratory: reports cough denies shortness of breath Cardiovascular: denies: chest pain Endocrine: denies unexplained weight loss or gain Gastrointestinal: denies: abdominal pain, nausea Genitourinary: denies: dysuria Musculoskeletal: denies: leg swelling Skin: denies: rash Neurological: denies: headache Hematological/Lymphatic: denies: easy bleeding or easy bruising Psych: denies sadness or hopelessness Physical Exam - Physical Exam Vital Signs: Vital Signs 12/17/17 12/17/17 12/17/17 11:08 11:14 14:31 Temperature 98.9 F Pulse Rate 108 H Respiratory 18 Rate Blood Pressure 230/129 230/129 Blood Pressure 225/133 [Right] O2 Sat by Pulse 98 Oximetry 12/17/17 12/17/17 12/17/17 14:36 15:55 16:10 Temperature 98.6 F Pulse Rate 85 77 Respiratory 20 Rate Blood Pressure 225/133 158/78 Blood Pressure 157/79 [Right] O2 Sat by Pulse 97 Oximetry Physical Exam: General: well-nourished, well-developed, no acute distress Head: Normocephalic, atraumatic Eyes: normal sclera ENT: Mucous membranes are pale and dry, bilater Neck: trachea midline, neck supple, No neck stiffness, no cervical adenopathy Respiratory: Breath sounds equal bilaterally, no wheezing, rales, or rhonchi Cardio: S1 and S2 present, no murmurs, rubs, gallops, capillary refill is delayed Abdomen: Normoactive bowel sounds, soft abdomen, no rigidity, no guarding or rebound tenderness Chest WALL/Back: No tenderness to palpation of the chest wall, no CVA tenderness with percussion Musc: No pitting edema Skin: No rash Neuro: no facial drooping, normal speech Psych: Normal affect ED Course Vital Signs 12/17/17 12/17/17 12/17/17 11:08 11:14 14:31 Temperature 98.9 F Pulse Rate 108 H Respiratory 18 Rate Blood Pressure 230/129 230/129 Blood Pressure 225/133 [Right] O2 Sat by Pulse 98 Oximetry 12/17/17 12/17/17 12/17/17 14:36 15:55 16:10 Temperature 98.6 F Pulse Rate 85 77 Respiratory 20 Rate Blood Pressure 225/133 158/78 Blood Pressure 157/79 [Right] O2 Sat by Pulse 97 Oximetry ED Medical Decision Making - Lab Data Result diagrams: 12/17/17 11:42 12/17/17 11:42 - Medical Decision Making The patient was seen and examined by myself. The patient is placed on a manager cardiac cath and continuous pulse ox. On initial evaluation, the patient was found to be in no distress. Evaluation orders were placed. EKG was negative for findings suggestive of acute cardiac infarct. The patient is given Iv labetalol for her elevated BP. Lab results exhibited creatinine 1.6, unchanged from chronic level previous ED evaluation, and otherwise labs were unremarkable including nml WBC. Chest x-ray is negative for pulmonary clear lobar consolidation, or other acute cardio pulmonary disease process. Pneumonia is unlikely at this time as the patient is afebrile with normal WBC. The patient was reevaluated and reported that their symptoms were markedly improved. She states that she feels at her normal baseline, and that she does not feel sick at all. On reexamination the patient is found to have normal respiratory rate and O2 sat on pulse oximetry, and decreased blood pressure outside a restaurant concerning for hypertensive emergency, and she has no costal retractions or diminishment of breath sounds on auscultation. The patient is stable for discharge with outpatient follow-up. The patient is given follow-up and return instructions, a prescription for a Z-Reggie for treatment of suspected bronchitis. The patient expressed understanding and agreed with the plan. The patient is discharged in stable condition. Critical care attestation.: If time is entered above; I have spent that time in minutes in the direct care of this critically ill patient, excluding procedure time. ED Disposition Clinical Impression: Hypertensive urgency Bronchitis, acute Qualifiers: Bronchitis organism: unspecified organism Qualified Code(s): J20.9 - Acute bronchitis, unspecified Disposition: DC-01 TO HOME OR SELFCARE Is pt being admited?: No Does the pt Need Aspirin: No Condition: Stable Instructions: Acute Bronchitis (ED), Hypertension (ED) Prescriptions: Azithromycin [Zithromax Z-REGGIE] 250 mg PO QDAY #6 tablet Benzonatate [Tessalon Perles] 100 mg PO Q8HR #20 capsule Referrals: PRIMARY CARE, [Primary Care Provider] - 3-5 Days Time of Disposition: 17:36
[2017-12-17 18:06] VITALS: BP 166/88
== END 2017-12-17 18:05 | disposition home or self-care (01) ==
LOC: ED 10:18
DX: I16.0 Hypertensive urgency (principal); J20.9 Acute bronchitis, unspecified; I10 Essential (primary) hypertension; E11.9 Type 2 diabetes mellitus without complications; Z88.8 Allergy status to other drugs, medicaments and biological substances
CPT/HCPCS: 36415; 71045; 80048; 83880; 85025; 93005; 93010; 96374

== ENCOUNTER 2018-01-13 03:51 | Inpatient (IN) | payer OTHER ==
[2018-01-13] MEDS ORDERED: APRESOLINE IV ONE (04:41)
[2018-01-13 05:05] LABS: Basophils % (Auto) 0.7 % (0.0-1.8); Eosinophils # (Auto) 0.1 K/mm3 (0.0-0.4); Eosinophils % (Auto) 2.6 % (0.0-4.3); Hematocrit 24.3 % (30.3-42.9); Hemoglobin 7.6 gm/dl (10.1-14.3); Lymphocytes % (Auto) 23.6 % (13.4-35.0); Mean Corpuscular HGB Conc 31 % (30-34); Monocytes # (Auto) 0.2 K/mm3 (0.0-0.8); Monocytes % (Auto) 5.3 % (0.0-7.3); Platelet Count 252 K/mm3 (140-440); Red Blood Count 3.63 M/mm3 (3.65-5.03); Red Cell Distribution Width 18.4 % (13.2-15.2)
[2018-01-13 05:18] LABS: Mean Corpuscular Hemoglobin 21 pg (28-32); Mean Corpuscular Volume 67 fl (79-97)
--- NOTE | 2018-01-13 05:18 | XRay Report ---
FINAL REPORT EXAM: XR CHEST 1V AP HISTORY: chest pain TECHNIQUE: A portable semi-upright view the chest was obtained and compared to the study of 12/17/2017. FINDINGS: The heart is [id number] enlarged. The lungs appear mildly congested. There are no localized infiltrates or effusions. There are EKG leads overlying the chest wall. The bones and soft tissues otherwise well maintained. IMPRESSION: Cardiomegaly with pulmonary vascular congestion. No localized infiltrates.
--- NOTE | 2018-01-13 06:04 | Emergency Department Report ---
HPI - General Chief Complaint: Dyspnea/Respdistress Time Seen by Provider: 01/13/18 04:37 - HPI HPI: The patient is a 47-year-old female with a history of uncontrolled hypertension , who presents for evaluation of dyspnea. The patient reports constant severe dyspnea for the past one day, worse with lying flat or exertion, improved with sitting up. She shares that she has not taken her blood pressure medicine because she cannot afford it. The patient denies fever, chest pain, hemoptysis , unilateral leg swelling, recent immobilization, history of DVT or PE, recent cancer. ED Past Medical Hx - Past Medical History Previous Medical History?: Yes Hx Hypertension: Yes Hx CVA: Yes (TIA 2016) Hx Congestive Heart Failure: No Hx Diabetes: Yes Hx Asthma: No Hx COPD: No Hx HIV: No Additional medical history: MS - Surgical History Past Surgical History?: Yes Hx Cholecystectomy: Yes - Social History Smoking Status: Former Smoker Substance Use Type: None - Medications Home Medications: Home Medications Medication Instructions Recorded Confirmed Last Taken Type Hydralazine HCl [Apresoline TAB] 50 mg PO TID 06/09/17 06/09/17 Unknown History Insulin Glargine [Lantus VIAL] 7 units SQ QHS 06/09/17 06/09/17 Unknown History Labetalol [Normodyne TAB] 300 mg PO BID 06/09/17 06/09/17 Unknown History Acetaminophen [Acetaminophen TAB] 325 mg PO Q4H PRN #30 tablet 06/12/17 Unknown Rx Amoxicillin/K Clav Tab [Augmentin 1 each PO Q12HR #12 tablet 06/12/17 Unknown Rx 875MG TAB] Docusate Sodium [Colace CAP] 100 mg PO BID #60 capsule 06/12/17 Unknown Rx NIFEdipine XL [Procardia Xl] 60 mg PO QDAY #30 tablet 06/12/17 Unknown Rx Azithromycin [Zithromax Z-REGGIE] 250 mg PO QDAY #6 tablet 12/17/17 Unknown Rx Benzonatate [Tessalon Perles] 100 mg PO Q8HR #20 capsule 12/17/17 Unknown Rx ED Review of Systems ROS: Stated complaint: [place] Other details as noted in HPI Constitutional: denies: fever ENT: denies: throat or neck pain Respiratory: reports cough, shortness of breath Cardiovascular: denies: chest pain Endocrine: denies unexplained weight loss or gain Gastrointestinal: denies: abdominal pain, nausea Genitourinary: denies: dysuria Musculoskeletal: denies: leg swelling Skin: denies: rash Neurological: denies: headache Hematological/Lymphatic: denies: easy bleeding or easy bruising Psych: denies sadness or hopelessness Physical Exam - Physical Exam Vital Signs: Vital Signs 01/13/18 01/13/18 01/13/18 04:13 04:15 04:30 Temperature Pulse Rate 90 99 H Respiratory 25 H 17 Rate Blood Pressure 228/109 215/122 Blood Pressure [Left] O2 Sat by Pulse 97 95 Oximetry 01/13/18 01/13/18 01/13/18 04:32 04:45 05:00 Temperature 99 F Pulse Rate 98 H Respiratory 22 Rate Blood Pressure 228/109 215/122 208/117 Blood Pressure 228/109 [Left] O2 Sat by Pulse 96 97 94 Oximetry 01/13/18 01/13/18 01/13/18 05:01 05:15 05:30 Temperature Pulse Rate 101 H Respiratory Rate Blood Pressure 215/122 208/117 189/96 Blood Pressure [Left] O2 Sat by Pulse 99 98 Oximetry 01/13/18 05:45 Temperature Pulse Rate Respiratory Rate Blood Pressure 197/83 Blood Pressure [Left] O2 Sat by Pulse 100 Oximetry Physical Exam: General: well-nourished, well-developed, no acute distress Head: Normocephalic, atraumatic Eyes: normal sclera ENT: Mucous membranes are pink and moist Neck: trachea midline, neck supple, No neck stiffness, no cervical adenopathy Respiratory: Diminished breath sounds and bibasilar crackles present, mild costal retractions Cardio: S1 and S2 present, no murmurs, rubs, gallops, capillary refill is brisk Abdomen: Normoactive bowel sounds, soft abdomen, no rigidity, no guarding or rebound tenderness Musc: 1+ pitting edema of the bilateral lower legs present Skin: No rash Neuro: no facial drooping, normal speech Psych: Normal affect ED Course Vital Signs 01/13/18 01/13/18 01/13/18 04:13 04:15 04:30 Temperature Pulse Rate 90 99 H Respiratory 25 H 17 Rate Blood Pressure 228/109 215/122 Blood Pressure [Left] O2 Sat by Pulse 97 95 Oximetry 01/13/18 01/13/18 01/13/18 04:32 04:45 05:00 Temperature 99 F Pulse Rate 98 H Respiratory 22 Rate Blood Pressure 228/109 215/122 208/117 Blood Pressure 228/109 [Left] O2 Sat by Pulse 96 97 94 Oximetry 01/13/18 01/13/18 01/13/18 05:01 05:15 05:30 Temperature Pulse Rate 101 H Respiratory Rate Blood Pressure 215/122 208/117 189/96 Blood Pressure [Left] O2 Sat by Pulse 99 98 Oximetry 01/13/18 05:45 Temperature Pulse Rate Respiratory Rate Blood Pressure 197/83 Blood Pressure [Left] O2 Sat by Pulse 100 Oximetry ED Medical Decision Making - Lab Data Result diagrams: 01/13/18 04:42 - Medical Decision Making The patient was seen and examined by myself. The patient is placed on a equipment monitor phototypesetting and continuous pulse ox. On initial evaluation, the patient was found to be in no distress. EKG was negative for findings suggestive of acute cardiac infarct. The patient is given hydralazine for severely elevated blood pressure 220/100. The patient is given an aspirin and a nitroglycerin tablet. Labs and imaging are obtained. Chest x-ray exhibits cardiomegaly and pulmonary vascular congestion . Lab results reveal elevated BNP. Evaluation findings are consistent with congestive heart failure, likely worsened secondary to uncontrolled hypertension. The patient is given IV Lasix for treatment of congestive heart failure. Dr. Moraes, the physician on-call for the hospitalist service was contacted. She agreed to admit the patient or have the next oncoming shift hospitalist physician to admit the patient. The ED admit order was placed. The patient was admitted in guarded condition. Critical care attestation.: If time is entered above; I have spent that time in minutes in the direct care of this critically ill patient, excluding procedure time. ED Disposition Clinical Impression: Systolic CHF, acute on chronic, Hypertensive emergency, CHENCHO (acute kidney injury) Disposition: OP ADMIT IP TO THIS HOSP Is pt being admited?: Yes Does the pt Need Aspirin: Yes Condition: Fair Instructions: Heart Failure (ED), Hypertension (ED) Referrals: MEET IRVIN MD [Primary Care Provider] - 3-5 Days Time of Disposition: 06:00
[2018-01-13] MEDS ORDERED: BABY ASPIRIN PO ONE (06:07)
[2018-01-13 06:10] LABS: Albumin 3.4 g/dL (3.9-5); Calcium 8.3 mg/dL (8.4-10.2)
[2018-01-13] MEDS ORDERED: NON-FORMULARY (Hydralazine Hcl [Apresoline Tab] 50 MG) PO SCH (08:00)
--- NOTE | 2018-01-13 08:09 | History and Physical Report ---
History of Present Illness Date of examination: 01/13/18 Date of admission: 01/13/18 Chief complaint: Worsening shortness of breath/uncontrolled blood pressures History of present illness: Very pleasant obese 47-year-old female patient with significant history of hypertension noncompliant with medications secondary to social issues presented to the emergency room with worsening shortness of breath and not feeling well patient complains of orthopnea and denies paroxysmal nocturnal dyspnea patient has not been on medication for a few months and initial workup is consistent with hypertensive emergency with blood pressures of 228/117 Patient received IV hydralazine for no improvement The patient denies any chest pain but complains of shortness of breath and just effort tolerance Patient also gives history of diabetes mellitus again not on any medications Past History Past Medical History: diabetes, heart failure, hypertension, renal failure Past Surgical History: cholecystectomy Social history: lives with family, full code. denies: smoking, alcohol abuse, prescription drug abuse Family history: hypertension Medications and Allergies Allergies Allergy/AdvReac Type Severity Reaction Status Date / Time amlodipine besylate Allergy Vomiting Verified 01/21/14 20:31 [From Norvasc] hydromorphone HCl Allergy Vomiting Verified 01/21/14 20:31 [From Dilaudid] lisinopril Allergy Unknown Verified 01/21/14 20:31 Home Medications Medication Instructions Recorded Confirmed Last Taken Type Hydralazine HCl [Apresoline TAB] 50 mg PO TID 06/09/17 01/13/18 Unknown History Insulin Glargine [Lantus VIAL] 7 units SQ QHS 06/09/17 01/13/18 Unknown History Labetalol [Normodyne TAB] 300 mg PO BID 06/09/17 01/13/18 Unknown History Docusate Sodium [Colace CAP] 100 mg PO BID #60 capsule 06/12/17 01/13/18 Unknown Rx NIFEdipine XL [Procardia Xl] 60 mg PO QDAY #30 tablet 06/12/17 01/13/18 Unknown Rx Active Meds: Active Medications Docusate Sodium (Colace) 100 mg PO BID [facility] Enoxaparin Sodium (Lovenox) 30 mg SUB-Q QDAY [facility] Insulin Aspart (Novolog) 0 units SUB-Q ACHS [facility]; Protocol Labetalol HCl (Normodyne) 300 mg PO BID [facility] Miscellaneous Medication (Hydralazine Hcl [Apresoline Tab]) 50 mg PO TID [facility] Miscellaneous Medication (Insulin Glargine) 7 units SQ QHS [facility] Nifedipine (Procardia Xl) 60 mg PO QDAY [facility] Review of Systems Constitutional: fatigue, weakness, no weight loss, no weight gain, no anorexia Ears, nose, mouth and throat: no nasal congestion, no nasal discharge Cardiovascular: orthopnea, lightheadedness, shortness of breath, no chest pain, no palpitations Respiratory: shortness of breath, dyspnea on exertion, no cough with sputum, no hemoptysis Gastrointestinal: no abdominal pain, no nausea, no vomiting Musculoskeletal: no myalgias, no arthritis Integumentary: no rash, no lesions Neurological: no paralysis, no numbness, no tingling Psychiatric: no anxiety, no depression Endocrine: no cold intolerance, no heat intolerance, no polydipsia, no polyuria Hematologic/Lymphatic: no easy bruising, no easy bleeding Allergic/Immunologic: no urticaria, no allergic rhinitis Exam - Constitutional Vitals: Temp Pulse Resp BP Pulse Ox 98.7 F 98 H 20 206/108 99 01/13/18 07:05 01/13/18 07:05 01/13/18 07:06 01/13/18 07:45 01/13/18 07:45 General appearance: Present: no acute distress, well-nourished, obese - EENT Eyes: Present: PERRL, EOM intact - Neck Neck: Present: supple, normal ROM - Respiratory Respiratory effort: normal Respiratory: bilateral: diminished, rales, negative: rhonchi, wheezing - Cardiovascular Rhythm: regular Heart Sounds: Present: S1 & S2 - Extremities Extremities: no ischemia, No edema - Abdominal General gastrointestinal: Present: soft, non-tender, non-distended, normal bowel sounds - Integumentary Integumentary: Present: clear, warm - Musculoskeletal Musculoskeletal: strength equal bilaterally, generalized weakness - Psychiatric Psychiatric: appropriate mood/affect, cooperative - Neurologic Neurologic: CNII-XII intact, moves all extremities Results - Labs CBC & Chem 7: 01/13/18 04:42 01/13/18 04:42 Labs: Abnormal lab results 01/13/18 01/13/18 Range/Units 04:42 04:42 WBC 4.4 L (4.5-11.0) K/mm3 RBC 3.63 L (3.65-5.03) M/mm3 Hgb 7.6 L (10.1-14.3) gm/dl Hct 24.3 L (30.3-42.9) % MCV 67 L (79-97) fl MCH 21 L (28-32) pg RDW 18.4 H (13.2-15.2) % Lymph # 1.0 L (1.2-5.4) K/mm3 Carbon Dioxide 21 L (22-30) mmol/L BUN 19 H (7-17) mg/dL Creatinine 1.9 H (0.7-1.2) mg/dL Glucose 149 H (65-100) mg/dL Calcium 8.3 L (8.4-10.2) mg/dL NT-Pro-B Natriuret Pep 12959 H (0-450) pg/mL Albumin 3.4 L (3.9-5) g/dL Assessment and Plan --Hypertensive urgency; continued noncompliance Resume patient's multiple home antihypertensives, IV hydralazine, closely monitor adjust as needed --Acute on chronic diastolic congestive heart failure; continue anti-failure medications, input output monitoring Cardiology evaluation if needed --Acute on chronic kidney disease stage III Secondary to hypertensive nephropathy, and vasomotor nephropathy Closely monitor his renal function, avoid nephrotoxins, consider nephrology evaluation if needed --2 diabetes mellitus; Accu-Chek sliding scale coverage and ADA diet Insulin, check hemoglobin A1c --Obesity; BMI 33, counseling and advised diet modification exercise as tolerated and weight reduction when medically stable --Mild protein calorie malnutrition, hypoalbuminemia; Supportive care, nutrition supplements --DVT prophylaxis; Lovenox Closely monitor the patient and adjust management as needed Possible discharge in 1-2 days if stable Plan of care is reviewed with the patient her nurse Answered all her questions Disposition; closely monitor blood pressures, if reasonable level can be discharged home Discharge planning per Case management
[2018-01-13] MEDS ORDERED: APRESOLINE IV NR (08:10)
[2018-01-13] MEDS ORDERED: NORMODYNE PO NR (08:32)
[2018-01-13] MEDS ORDERED: NORMODYNE ONE (08:52)
[2018-01-13] MEDS ORDERED: APRESOLINE ONE (08:53)
[2018-01-13] MEDS ORDERED: LOVENOX SUB-Q SCH (10:00)
[2018-01-13] MEDS: NOVOLOG SUB-Q SCH ×3 (11:03→21:36)
[2018-01-13] MEDS ORDERED: APRESOLINE IV PRN (12:00)
[2018-01-13] MEDS: LOVENOX SUB-Q SCH (14:34)
[2018-01-13] MEDS: APRESOLINE PO SCH ×2 (14:35→21:35)
[2018-01-13] MEDS: COLACE PO SCH ×2 (14:35→21:39)
[2018-01-13] MEDS: PROCARDIA XL PO SCH (14:36)
[2018-01-13] MEDS: NORMODYNE PO SCH (21:35)
[2018-01-13] MEDS: LEVEMIR (NF) SUB-Q SCH (21:36)
[2018-01-13] MEDS ORDERED: INSULIN GLARGINE SQ SCH (22:00)
[2018-01-14 06:43] LABS: Alanine Aminotransferase 11 units/L (7-56); Albumin 3.2 g/dL (3.9-5); BUN/Creatinine Ratio 9; Blood Urea Nitrogen 19 mg/dL (7-17); Calcium 8.3 mg/dL (8.4-10.2); Hemolysis Index 1
[2018-01-14 06:44] LABS: Bilirubin,Direct < 0.2 mg/dL (0-0.2)
[2018-01-14] MEDS: NOVOLOG SUB-Q SCH ×3 (11:45→22:38)
[2018-01-14] MEDS: APRESOLINE PO SCH ×3 (12:29→23:20)
[2018-01-14] MEDS: PROCARDIA XL PO SCH (12:29)
[2018-01-14] MEDS: NORMODYNE PO SCH ×2 (12:29→22:34)
[2018-01-14] MEDS: COLACE PO SCH ×2 (12:30→22:07)
[2018-01-14] MEDS: LOVENOX SUB-Q SCH (12:30)
--- NOTE | 2018-01-14 12:40 | Progress Note ---
Assessment and Plan // Hypertensive urgency; continued noncompliance Resumed patient's home antihypertensives, IV hydralazine as needed, closely monitor BP much improved .// Acute on chronic diastolic congestive heart failure; continue anti-failure medications, input output monitoring Cardiology evaluation if gets decompensated // Acute on chronic kidney disease stage III Cr a year ago was 1.6 Secondary to hypertensive nephropathy, and vasomotor nephropathy Closely monitor his renal function, avoid nephrotoxins, consider nephrology evaluation if creatinine continue to decline // type 2 diabetes mellitus; Accu-Chek with sliding scale coverage and ADA diet long acting Insulin, check hemoglobin A1c // Obesity; BMI 33, counseled and advised diet modification exercise as tolerated and weight reduction when medically stable // Mild protein calorie malnutrition, hypoalbuminemia; Supportive care, nutrition supplements // Microcytic anemia Likely from chronic disease, will order anemia panel --DVT prophylaxis; Lovenox Disposition: Closely monitor the patient and adjust management as needed Possible discharge in 1-2 days if renal function and blood pressure stable Brief history: 47-year-old female patient with significant history of hypertension noncompliant with medications secondary to social issues presented to the emergency room with worsening shortness of breath and not feeling well patient complains of orthopnea and denies paroxysmal nocturnal dyspnea patient has not been on medication for a few months and initial workup is consistent with hypertensive emergency with blood pressures of 228/117 Radiological test: CXR - cardiomegaly with pulmonary venous congestion 2-D echo on 2016 showed preserved EF with impaired relaxation Hospitalist Physical exam: GENERAL: well-developed AAF lying on bed appeared to be in no discomfort. HEENT: Normocephalic. Atraumatic. No conjunctival congestion or icterus. Patient has moist mucous membranes. NECK: Supple. Trachea midline. CHEST/LUNGS: Clear to auscultated bilaterally, breathing nonlabored. No wheezes crackles or rhonchi. HEART/CARDIOVASCULAR: Regular in rate and rhythm. S1 and S2 positive. ABDOMEN: Abdomen is soft, nontender. Patient has normal bowel sounds. SKIN: There is no rash. Warm and dry. NEURO: No focal motor deficit. Follows command. MUSCULOSKELETAL: No joint effusion or tenderness. EXTRIMITY: No edema, no cyanosis or clubbing. PSYCH: Cooperative. Subjective Date of service: 01/14/18 Interval history: Patient seen and examined. Medical records and medication list reviewed. No acute event overnight noted by the RN. Patient denies any chest pain or difficulty breathing. Patient is tolerating diet. Discussed plan of care at bedside with patient. Objective - Constitutional Vitals: Vital Signs - 12hr 01/14/18 01/14/18 01/14/18 01:00 04:28 08:21 Temperature 98.1 F Pulse Rate 80 84 87 Respiratory 18 Rate Blood Pressure 150/71 149/80 O2 Sat by Pulse 97 96 Oximetry 01/14/18 08:34 Temperature Pulse Rate 78 Respiratory Rate Blood Pressure O2 Sat by Pulse Oximetry - Labs CBC & Chem 7: 01/13/18 04:42 01/14/18 05:08 Labs: Abnormal lab results 01/13/18 01/13/18 01/14/18 Range/Units 16:58 20:42 05:08 BUN 19 H (7-17) mg/dL Creatinine 2.2 H (0.7-1.2) mg/dL POC Glucose 159 H 184 H (70-105) Calcium 8.3 L (8.4-10.2) mg/dL Total Protein 6.0 L (6.3-8.2) g/dL Albumin 3.2 L (3.9-5) g/dL
--- NOTE | 2018-01-14 14:39 | Ultrasound Report ---
ULTRASOUND RENAL BILATERAL HISTORY: Chronic kidney disease. TECHNIQUE: transabdominal ultrasound with color Doppler interrogation. FINDINGS: The right kidney measures 10.9cm. Right renal cortex: 1.0cm. The left kidney measures 11.2cm. Left renal cortex: 1.1cm. Both kidneys are echogenic with poor corticomedullary differentiation. No evidence for cystic disease, calculus mass, hydronephrosis or perinephric fluid. The views of the bladder and the region of the ureters appear normal. IMPRESSION: Echogenic kidneys consistent with nonspecific renal parenchymal disease. No focal renal lesion or hydronephrosis.
[2018-01-14] MEDS: LEVEMIR (NF) SUB-Q SCH (22:33)
[2018-01-14] MEDS: NACL 0.9% 1000 ML 1,000 ML IV SCH (22:36)
[2018-01-15] MEDS: NOVOLOG SUB-Q SCH ×4 (11:16→23:20)
[2018-01-15] MEDS: LOVENOX SUB-Q SCH (11:54)
[2018-01-15] MEDS: COLACE PO SCH ×2 (11:55→23:20)
[2018-01-15] MEDS: NORMODYNE PO SCH ×2 (11:55→22:14)
[2018-01-15] MEDS: PROCARDIA XL PO SCH ×2 (11:57→23:20)
[2018-01-15] MEDS: APRESOLINE PO SCH ×3 (11:57→22:18)
[2018-01-15 15:25] LABS: Calcium 8.2 mg/dL (8.4-10.2)
[2018-01-15 15:27] LABS: Iron 18 ug/dL (37-170); Total Iron Binding Capacity 297 mcg/dL (250-450)
[2018-01-15] MEDS: LEVEMIR (NF) SUB-Q SCH (22:20)
[2018-01-15] MEDS: ROBITUSSIN PO PRN (23:19)
[2018-01-16] MEDS: NACL 0.9% 1000 ML 1,000 ML IV SCH (06:14)
--- NOTE | 2018-01-16 09:10 | Progress Note ---
Assessment and Plan // Hypertensive urgency; continued noncompliance Resumed patient's home antihypertensives, IV hydralazine as needed, closely monitor BP much improved, will increse procardia .// Acute on chronic diastolic congestive heart failure; continue anti-failure medications, input output monitoring Cardiology evaluation if gets decompensated // Acute on chronic kidney disease stage III Cr a year ago was 1.6 Secondary to hypertensive nephropathy, and vasomotor nephropathy Closely monitor renal function, avoid nephrotoxins, consider nephrology evaluation if creatinine continue to decline Renal Us showed medical renal disease // type 2 diabetes mellitus; Accu-Chek with sliding scale coverage and ADA diet long acting Insulin, A1c 4.2 ? // Obesity; BMI 33, counseled and advised diet modification exercise as tolerated and weight reduction when medically stable // Mild protein calorie malnutrition, hypoalbuminemia; Supportive care, nutrition supplements // Microcytic anemia Likely from chronic disease, will order anemia panel --DVT prophylaxis; Lovenox Disposition: Closely monitor the patient and adjust management as needed Possible discharge in 1-2 days if renal function and blood pressure stable Brief history: 47-year-old female patient with significant history of hypertension noncompliant with medications secondary to social issues presented to the emergency room with worsening shortness of breath and not feeling well patient complains of orthopnea and denies paroxysmal nocturnal dyspnea patient has not been on medication for a few months and initial workup is consistent with hypertensive emergency with blood pressures of 228/117 Radiological test: CXR - cardiomegaly with pulmonary venous congestion 2-D echo on 2016 showed preserved EF with impaired relaxation Hospitalist Physical exam: GENERAL: well-developed AAF lying on bed appeared to be in no discomfort. HEENT: Normocephalic. Atraumatic. No conjunctival congestion or icterus. Patient has moist mucous membranes. NECK: Supple. Trachea midline. CHEST/LUNGS: Clear to auscultated bilaterally, breathing nonlabored. No wheezes crackles or rhonchi. HEART/CARDIOVASCULAR: Regular in rate and rhythm. S1 and S2 positive. ABDOMEN: Abdomen is soft, nontender. Patient has normal bowel sounds. SKIN: There is no rash. Warm and dry. NEURO: No focal motor deficit. Follows command. MUSCULOSKELETAL: No joint effusion or tenderness. EXTRIMITY: No edema, no cyanosis or clubbing. PSYCH: Cooperative. Subjective Date of service: 01/15/18 Interval history: Patient seen and examined. Medical records and medication list reviewed. No acute event overnight noted by the RN. Patient denies any chest pain or difficulty breathing. Patient is tolerating diet. Cr level still elevated Discussed plan of care at bedside with patient. Objective - Constitutional Vitals: Vital Signs - 12hr 01/16/18 01/16/18 00:03 04:24 Temperature 98.4 F 98.3 F Pulse Rate 78 75 Respiratory 20 22 Rate Blood Pressure 127/68 146/89 O2 Sat by Pulse 97 94 Oximetry - Labs CBC & Chem 7: 01/13/18 04:42 01/15/18 14:32 Labs: Abnormal lab results 01/15/18 01/15/18 01/15/18 Range/Units 14:32 14:32 15:40 Sodium 135 L (137-145) mmol/L Carbon Dioxide 20 L (22-30) mmol/L BUN 22 H (7-17) mg/dL Creatinine 2.1 H (0.7-1.2) mg/dL Glucose 123 H (65-100) mg/dL POC Glucose 110 H (70-105) Calcium 8.2 L (8.4-10.2) mg/dL Iron 18 L (37-170) ug/dL 01/15/18 Range/Units 21:51 Sodium (137-145) mmol/L Carbon Dioxide (22-30) mmol/L BUN (7-17) mg/dL Creatinine (0.7-1.2) mg/dL Glucose (65-100) mg/dL POC Glucose 140 H (70-105) Calcium (8.4-10.2) mg/dL Iron (37-170) ug/dL
[2018-01-16] MEDS: ROBITUSSIN PO PRN ×2 (10:09→21:59)
[2018-01-16] MEDS: APRESOLINE PO SCH ×3 (10:10→22:00)
[2018-01-16] MEDS: NORMODYNE PO SCH ×2 (10:11→22:01)
[2018-01-16] MEDS: PROCARDIA XL PO SCH ×2 (10:11→22:00)
[2018-01-16] MEDS: BABY ASPIRIN PO SCH (10:11)
[2018-01-16] MEDS: LOVENOX SUB-Q SCH (10:11)
[2018-01-16] MEDS: COLACE PO SCH ×2 (10:12→22:00)
--- NOTE | 2018-01-16 11:42 | Consultation ---
History of Present Illness - Reason for Consult Consult date: 01/16/18 acute renal failure, chronic renal failure, accelerated hypertension - History of Present Illness The patient is a 47 YO AAF patient with history significant poorly controlled hypertension, Type 2 DM, CKD and noncompliant with medications who presented to the emergency room with shortness of breath and feeling unwell for the past few days. She also reports having Orthopnea, bilateral leg swelling and APPLE. Patient has not been on medication for the several months. She has had DM for about 20 years and HTN for about 5 years. Initial BP was 228/109. Initial creatinine was 1.9 and has increased to 2.1 today. Last month her creatinine was 1.6. She is receiving IV fluids. She denies any N, V, D, abd pain, dysuria , hematuria or h/o kidney stone. Past History Past Medical History: diabetes, heart failure, hypertension, renal failure Past Surgical History: cholecystectomy Social history: lives with family, full code. denies: smoking, alcohol abuse, prescription drug abuse Family history: hypertension Medications and Allergies Allergies Allergy/AdvReac Type Severity Reaction Status Date / Time amlodipine besylate Allergy Vomiting Verified 01/21/14 20:31 [From Norvasc] hydromorphone HCl Allergy Vomiting Verified 01/21/14 20:31 [From Dilaudid] lisinopril Allergy Unknown Verified 01/21/14 20:31 Home Medications Medication Instructions Recorded Confirmed Last Taken Type Hydralazine HCl [Apresoline TAB] 50 mg PO TID 06/09/17 01/13/18 Unknown History Insulin Glargine [Lantus VIAL] 7 units SQ QHS 06/09/17 01/13/18 Unknown History Labetalol [Normodyne TAB] 300 mg PO BID 06/09/17 01/13/18 Unknown History Docusate Sodium [Colace CAP] 100 mg PO BID #60 capsule 06/12/17 01/13/18 Unknown Rx NIFEdipine XL [Procardia Xl] 60 mg PO QDAY #30 tablet 06/12/17 01/13/18 Unknown Rx Active Meds: Active Medications Aspirin (Baby Aspirin) 81 mg PO QDAY [facility] Last Admin: 01/16/18 10:11 Dose: 81 mg Atorvastatin Calcium (Lipitor) 20 mg PO QHS [facility] Docusate Sodium (Colace) 100 mg PO BID [facility] Last Admin: 01/16/18 10:12 Dose: 100 mg Enoxaparin Sodium (Lovenox) 40 mg SUB-Q QDAY@1000 [facility] Last Admin: 01/16/18 10:11 Dose: 40 mg Guaifenesin (Robitussin) 200 mg PO Q4H PRN PRN Reason: Cough Last Admin: 01/16/18 10:09 Dose: 200 mg Hydralazine HCl (Apresoline) 10 mg IV Q4H PRN PRN Reason: Hypertension Hydralazine HCl (Apresoline) 50 mg PO TID [facility] Last Admin: 01/16/18 10:10 Dose: 50 mg Sodium Chloride (Nacl 0.9% 1000 Ml) 1,000 mls @ 75 mls/hr IV DIRECT [facility] Last Admin: 01/16/18 06:14 Dose: 100 mls/hr Insulin Aspart (Novolog) 0 units SUB-Q ACHS [facility]; Protocol Last Admin: 01/15/18 23:20 Dose: Not Given Insulin Detemir (Levemir) 7 units SUB-Q QHS [facility] Last Admin: 01/15/18 22:20 Dose: 7 units Labetalol HCl (Normodyne) 300 mg PO BID [facility] Last Admin: 01/16/18 10:11 Dose: 300 mg Nifedipine (Procardia Xl) 60 mg PO Q12HR [facility] Last Admin: 01/16/18 10:11 Dose: 60 mg Review of Systems Constitutional: no weight loss, no weight gain, no fever, no chills, no anorexia , no weakness, no poor appetite Ears, nose, mouth and throat: no epistaxis Breasts: deferred Cardiovascular: orthopnea, edema, shortness of breath, dyspnea on exertion, high blood pressure, leg edema, decreased exercise tolerance, no chest pain, no palpitations, no syncope, no lightheadedness Respiratory: shortness of breath, dyspnea on exertion, no cough, no hemoptysis, no home oxygen Gastrointestinal: no abdominal pain, no nausea, no vomiting, no diarrhea, no hematemesis, no melena Genitourinary Female: no dysuria, no hematuria Rectal: no bleeding Musculoskeletal: no redness of joints Integumentary: no rash, no wounds, no jaundice Neurological: no paralysis, no weakness, no syncope, no change in mentation, no confusion, no memory loss Psychiatric: no memory loss, no confusion Exam - Vital Signs Vital signs: Vital Signs Pulse Resp 90 25 H 01/13/18 04:13 01/13/18 04:13 - General Appearance General appearance: well-developed, well-nourished, appears stated age, other ( no distress) EENT: ATNC, PERRL, mucous membranes moist, hearing intact, vision intact Neck: Present: neck supple, trachea midline, JVD/HJR Respiratory: Rales Heart: regular, S1S2, no murmurs Gastrointestinal: Present: normoactive bowel sounds. Absent: tenderness, distended Integumentary: no rash, warm and dry Neurologic: no focal deficit, no asterixis, alert and oriented x3 Musculoskeletal: Present: other (1+ edema of both LEs noted) Psychiatric: cooperative Results - Lab Results 01/13/18 04:42 01/15/18 14:32 Most recent lab results Calcium 8.2 mg/dL (8.4-10.2) L 01/15/18 14:32 Magnesium 2.00 mg/dL (1.7-2.3) 01/14/18 05:08 - Image Kidney/bladder ultrasound: report reviewed Assessment and Plan 1. Acute kidney injury: CHENCHO superimposed on CKD stage 3 in the setting of CHF and uncontrolled HTN. Renal US is negative. Urine studies pending. 2. CKD stage 3: Likely secondary to Diabetic Nephropathy. 3. Uncontrolled Hypertension: Secondary to medical non-compliance. Renal artery US and Aldosterone-renin ratio ordered. BP is better now. 4. Volume overload: Stop IV fluids. 5. Microcytic anemia: Follow H/H.
[2018-01-16] MEDS: HumaLOG SUB-Q SCH ×2 (18:32→21:47)
[2018-01-16] MEDS: LANTUS SUB-Q SCH (22:04)
--- NOTE | 2018-01-17 00:02 | Progress Note ---
Assessment and Plan // Hypertensive urgency; continued noncompliance Resumed patient's home antihypertensives, IV hydralazine as needed, closely monitor BP much improved, will cont current medications, with increased dose of procardia .// Acute on chronic diastolic congestive heart failure; continue anti-failure medications, input output monitoring Cardiology evaluation if gets decompensated // Acute on chronic kidney disease stage III Cr a year ago was 1.6 Secondary to hypertensive nephropathy, and vasomotor nephropathy Closely monitor renal function, avoid nephrotoxins, Renal Us showed medical renal disease will consult nephrology // type 2 diabetes mellitus; Accu-Chek with sliding scale coverage and ADA diet long acting Insulin, A1c 4.2 ? // Obesity; BMI 33, counseled and advised diet modification exercise as tolerated and weight reduction when medically stable // Mild protein calorie malnutrition, hypoalbuminemia; Supportive care, nutrition supplements // Microcytic anemia Likely from chronic disease, will order anemia panel --DVT prophylaxis; Lovenox -- Noncompliance due to social issue/finance - SW notified Disposition: Closely monitor the patient and adjust management as needed Possible discharge in 1-2 days if renal function and blood pressure stable Brief history: 47-year-old female patient with significant history of hypertension noncompliant with medications secondary to social issues presented to the emergency room with worsening shortness of breath and not feeling well patient complains of orthopnea and denies paroxysmal nocturnal dyspnea patient has not been on medication for a few months and initial workup is consistent with hypertensive emergency with blood pressures of 228/117 Radiological test: CXR - cardiomegaly with pulmonary venous congestion 2-D echo on 2016 showed preserved EF with impaired relaxation Hospitalist Physical exam: GENERAL: well-developed AAF lying on bed appeared to be in no discomfort. HEENT: Normocephalic. Atraumatic. No conjunctival congestion or icterus. Patient has moist mucous membranes. NECK: Supple. Trachea midline. CHEST/LUNGS: Clear to auscultated bilaterally, breathing nonlabored. No wheezes crackles or rhonchi. HEART/CARDIOVASCULAR: Regular in rate and rhythm. S1 and S2 positive. ABDOMEN: Abdomen is soft, nontender. Patient has normal bowel sounds. SKIN: There is no rash. Warm and dry. NEURO: No focal motor deficit. Follows command. MUSCULOSKELETAL: No joint effusion or tenderness. EXTRIMITY: No edema, no cyanosis or clubbing. PSYCH: Cooperative. Subjective Date of service: 01/16/18 Interval history: Patient seen and examined. Medical records and medication list reviewed. No acute event overnight noted by the RN. Patient denies any chest pain or difficulty breathing. Patient is tolerating diet. Cr level still elevated Discussed plan of care at bedside with patient. She refused lab this morning, she states she need help/financial support to have further outpt follow up She wants to see SW to discuss about medication assistance She states she does not have a job and also worried she might get sicker if she start working she said ' How can I go to work, what if something bad happens" She was advised to have PCP to have regular f/u and to be compliant with medication to have better control in blood pressure and renal function She became very distressed and agitated, states " How can I go to have f/u with doctor if I have no job? You have to resolve my problem, you have to get help for me". I gave her reference for [facility], also told her she could f/u at [place] but she stated that she does not live in the [facility]. Objective - Constitutional Vitals: Vital Signs - 12hr 01/16/18 01/16/18 01/16/18 18:33 20:29 21:38 Temperature 98.4 F Pulse Rate 75 Respiratory 18 18 Rate Blood Pressure 140/77 Blood Pressure 144/82 [Left] O2 Sat by Pulse 98 Oximetry - Labs CBC & Chem 7: 01/13/18 04:42 01/15/18 14:32 Labs: Abnormal lab results 01/16/18 Range/Units 21:25 POC Glucose 128 H (70-105)
[2018-01-17] MEDS: HumaLOG SUB-Q SCH ×3 (07:44→21:14)
[2018-01-17 07:59] LABS: Basophils % (Auto) 0.7 % (0.0-1.8); Eosinophils # (Auto) 0.1 K/mm3 (0.0-0.4); Eosinophils % (Auto) 4.9 % (0.0-4.3); Hematocrit 23.4 % (30.3-42.9); Lymphocytes # (Auto) 1.1 K/mm3 (1.2-5.4); Mean Corpuscular HGB Conc 30 % (30-34); Monocytes # (Auto) 0.3 K/mm3 (0.0-0.8); Monocytes % (Auto) 11.5 % (0.0-7.3); Platelet Count 264 K/mm3 (140-440); Red Blood Count 3.44 M/mm3 (3.65-5.03); Red Cell Distribution Width 18.5 % (13.2-15.2)
[2018-01-17 08:06] LABS: Mean Corpuscular Hemoglobin 20 pg (28-32); Mean Corpuscular Volume 68 fl (79-97)
[2018-01-17 08:15] LABS: Calcium 8.1 mg/dL (8.4-10.2)
--- NOTE | 2018-01-17 08:28 | Progress Note ---
Assessment and Plan 1. Acute kidney injury: Mild CHENCHO superimposed on CKD stage 3 in the setting of CHF and uncontrolled HTN. Suspect progressive CKD due to uncontrolled HTN. Renal function is stable. Renal US was negative. Urine studies pending. 2. CKD stage 3: Likely secondary to Diabetic Nephropathy. 3. Uncontrolled Hypertension: Secondary to medical non-compliance. Renal artery US and Aldosterone-renin ratio ordered. BP is better now. 4. Volume overload: Improved. 5. Microcytic anemia: Iron deficiency noted. Start on PO Iron. Patient was advised to follow up with me in 1-2 weeks. Subjective Date of service: 01/17/18 Interval history: Patient is feeling better today. Objective - Vital Signs Vital signs: Vital Signs - 12hr 01/16/18 01/16/18 01/17/18 20:29 21:38 01:11 Temperature 98.4 F 98.2 F Pulse Rate 75 75 Respiratory 18 18 20 Rate Blood Pressure 144/82 123/64 [Left] O2 Sat by Pulse 98 98 Oximetry 01/17/18 05:34 Temperature 98 F Pulse Rate 79 Respiratory 18 Rate Blood Pressure 140/71 [Left] O2 Sat by Pulse 99 Oximetry - General Appearance General appearance: well-developed, well-nourished, appears stated age, other ( no distress) EENT: ATNC, PERRL, hearing intact, vision intact Neck: supple Respiratory: Present: Clear to Ascultation Cardiology: regular, S1S2, no murmurs Gastrointestinal: normoactive bowel sounds, no tenderness, no distended Integumentary: no rash, warm and dry Neurologic: no focal deficit, no asterixis, alert and oriented x3 Musculoskeletal: other (no edema) Psychiatric: mood/affect appropriate - Lab 01/17/18 07:26 01/17/18 07:26 Most recent lab results Calcium 8.1 mg/dL (8.4-10.2) L 01/17/18 07:26 Phosphorus 4.90 mg/dL (2.5-4.5) H 01/17/18 07:26 Magnesium 2.00 mg/dL (1.7-2.3) 01/14/18 05:08
[2018-01-17] MEDS: PROCARDIA XL PO SCH ×2 (09:36→21:07)
[2018-01-17] MEDS: COLACE PO SCH ×2 (09:36→21:09)
[2018-01-17] MEDS: APRESOLINE PO SCH ×3 (09:37→21:12)
[2018-01-17] MEDS: BABY ASPIRIN PO SCH (09:37)
[2018-01-17] MEDS: NORMODYNE PO SCH ×2 (09:37→21:12)
[2018-01-17] MEDS: LOVENOX SUB-Q SCH (09:38)
--- NOTE | 2018-01-17 16:13 | Discharge Summary ---
Providers - Providers Date of Admission: 01/13/18 08:01 Date of discharge: 01/17/18 Attending physician: JASMIN HERR 01/14/18 05:08 Consult to Case Management [CONS] Routine Services Needed at Discharge: Other Notified:: no 01/16/18 09:42 Consult to Physician [CONS] Routine Consulting Provider: AYLA CASE Reason For Exam: ckd Place consult to:: Dr Case Notified:: OFFICE Phone number called:: [phone] Was contact made?: Yes If yes, spoke with:: KARL Time called:: 10:05 Primary care physician: MEET IRVIN Hospitalization Condition: Fair Hospital course: Discharge diagnosis and management: // Hypertensive urgency; continued noncompliance Resumed patient's home antihypertensives, IV hydralazine as needed, closely monitor BP much improved, will cont current medications, with increased dose of procardia .// Acute on chronic diastolic congestive heart failure; continue anti-failure medications, input output monitoring Cardiology evaluation if gets decompensated Echo done in 05/27 showed Ef of 50-55% // Acute on chronic kidney disease stage III Cr a year ago was 1.6 Secondary to hypertensive nephropathy, and vasomotor nephropathy Closely monitor renal function, avoid nephrotoxins, Renal Us showed medical renal disease will consult nephrology // type 2 diabetes mellitus; Accu-Chek with sliding scale coverage and ADA diet long acting Insulin, A1c 4.2 ? // Obesity; BMI 33, counseled and advised diet modification exercise as tolerated and weight reduction when medically stable // Mild protein calorie malnutrition, hypoalbuminemia; Supportive care, nutrition supplements // Microcytic anemia Likely from chronic disease and iron deficiency discussed with nephrology, recommended to start iron tabs --DVT prophylaxis; Lovenox -- Noncompliance due to social issue/finance - SW notified Disposition: Closely monitor the patient and adjust management as needed Possible discharge in 1-2 days if renal function and blood pressure stable Brief history: 47-year-old female patient with significant history of hypertension noncompliant with medications secondary to social issues presented to the emergency room with worsening shortness of breath and not feeling well patient complains of orthopnea and denies paroxysmal nocturnal dyspnea patient has not been on medication for a few months and initial workup is consistent with hypertensive emergency with blood pressures of 228/117 Radiological test: CXR - cardiomegaly with pulmonary venous congestion 2-D echo on 2016 showed preserved EF with impaired relaxation Hospitalist Physical exam: GENERAL: well-developed AAF lying on bed appeared to be in no discomfort. HEENT: Normocephalic. Atraumatic. No conjunctival congestion or icterus. Patient has moist mucous membranes. NECK: Supple. Trachea midline. CHEST/LUNGS: Clear to auscultated bilaterally, breathing nonlabored. No wheezes crackles or rhonchi. HEART/CARDIOVASCULAR: Regular in rate and rhythm. S1 and S2 positive. ABDOMEN: Abdomen is soft, nontender. Patient has normal bowel sounds. SKIN: There is no rash. Warm and dry. NEURO: No focal motor deficit. Follows command. MUSCULOSKELETAL: No joint effusion or tenderness. EXTRIMITY: No edema, no cyanosis or clubbing. PSYCH: Cooperative. Disposition: DC-01 TO HOME OR SELFCARE Time spent for discharge: 34 minutes Core Measure Documentation - Palliative Care Palliative Care/ Comfort Measures: Not Applicable - Core Measures Any of the following diagnoses?: heart failure - Heart Failure Discharge Requirements JUANITA/ARB for LVSD if EF <40%: Yes Beta donavan at discharge: Yes Exam - Constitutional Vitals: Temp Pulse Resp BP Pulse Ox 98.4 F 79 20 138/80 100 01/17/18 08:35 01/17/18 10:00 01/17/18 10:00 01/17/18 08:35 01/17/18 10:00 Plan Activity: advance as tolerated Weight Bearing Status: Non-Weight Bearing Diet: low fat, renal Additional Instructions: F/u with Dr Case in one to two weeks Follow up with: MEET IRVIN MD [Primary Care Provider] - 3-5 Days Prescriptions: AtorvaSTATin [Lipitor] 20 mg PO QHS #30 tablet Insulin Glargine [Lantus VIAL] 7 units SQ QHS 90 Days #90 units Aspirin [Aspirin BABY CHEW TAB] 81 mg PO QDAY #30 tab.chew Ferrous Sulfate [Feosol 325 MG tab] 325 mg PO BID #60 tablet hydrALAZINE [Apresoline TAB] 50 mg PO TID #90 tablet Labetalol [Normodyne TAB] 300 mg PO BID #60 tablet NIFEdipine XL [Procardia Xl] 60 mg PO QDAY #60 tablet
[2018-01-17 20:54] VITALS: BP 159/79
[2018-01-17] MEDS: LANTUS SUB-Q SCH (21:13)
[2018-01-17] MEDS ORDERED: FEOSOL PO SCH (22:00)
--- NOTE | 2018-01-18 12:55 | Vascular Lab Report ---
RENAL ARTERY DUPLEX EXAM: REASON FOR EXAM: Renal artery stenosis. NOTE: Visualization is technically adequate. COMMENTS ON THE AORTA: The aorta is patent. Normal flow velocities are observed. No aneurysmal dilatation is noted. Mild atherosclerotic change is identified. The celiac artery is patent with normal flow velocity. The superior mesenteric artery is patent with normal flow velocity. COMMENTS ON THE RIGHT KIDNEY: The kidney measures 10.3 centimeters in greatest dimension. No obvious parenchymal abnormalities are noted. The renal artery is patent. Maximum systolic velocity is 145 cm/sec. This finding is consistent with less than 60% diameter reduction. Renal aortic index is 1.96. This finding is consistent with less than 60% diameter reduction. Overall findings are consistent with less than 60% diameter reduction in the renal artery. COMMENTS ON THE LEFT KIDNEY: The kidney measures 11.1 centimeters in greatest dimension. No obvious parenchymal abnormalities are noted. The renal artery is patent. Maximum systolic velocity is 155 cm/sec. This finding is consistent with less than 60% diameter reduction. Renal aortic index is 2.09. This finding is consistent with less than 60% diameter reduction. Overall findings are consistent with less than 60% diameter reduction in the renal artery. IMPRESSION: RIGHT KIDNEY: Less than 60% diameter reduction in the renal artery. LEFT KIDNEY: Less than 60% diameter reduction in the renal artery.
== END 2018-01-17 22:00 | disposition home or self-care (01) | DRG 682 ==
LOC: ED 03:51 → 4A 08:01
PROVIDERS: ADMIT Internal Medicine; ATTEND Internal Medicine
DX: N17.9 Acute kidney failure, unspecified (principal); I50.33 Acute on chronic diastolic (congestive) heart failure; I13.0 Hypertensive heart and chronic kidney disease with heart failure and stage 1 through stage 4 chronic kidney disease, or unspecified chronic kidney disease; I16.1 Hypertensive emergency; E44.1 Mild protein-calorie malnutrition; N18.3 Chronic kidney disease, stage 3 (moderate); E11.22 Type 2 diabetes mellitus with diabetic chronic kidney disease; E66.9 Obesity, unspecified; I16.0 Hypertensive urgency; D50.9 Iron deficiency anemia, unspecified; Z86.73 Personal history of transient ischemic attack (TIA), and cerebral infarction without residual deficits; Z90.49 Acquired absence of other specified parts of digestive tract; Z87.891 Personal history of nicotine dependence; Z79.4 Long term (current) use of insulin; Z79.899 Other long term (current) drug therapy; Z82.49 Family history of ischemic heart disease and other diseases of the circulatory system; Z88.8 Allergy status to other drugs, medicaments and biological substances; Z68.33 Body mass index [BMI] 33.0-33.9, adult; Z91.14 Patient's other noncompliance with medication regimen
CPT/HCPCS: 36415; 71045; 76770; 80048; 80053; 80074; 82088; 82550; 82728; 82962; 83036; 83550; 83735; 83880; 83970; 84100; 84703; 85025; 93005; 93010; 93975; 96374; 96376; A9270-GY; J0360; J1650; J1815; J1818; J7030

== ENCOUNTER 2019-06-08 20:05 | Inpatient (IN) | payer MEDICAID ==
[2019-06-08] MEDS ORDERED: TYLENOL PO PRN (20:15)
[2019-06-08] MEDS ORDERED: SENOKOT PO PRN (20:15)
[2019-06-08] MEDS ORDERED: D50W (25GM) Syringe IV PRN (20:15)
[2019-06-08] MEDS ORDERED: DULCOLAX PR PRN (20:15)
[2019-06-08] MEDS: NORMODYNE PO SCH (23:09)
[2019-06-08] MEDS: CALAN SR PO SCH (23:11)
[2019-06-08] MEDS: HEPARIN SUB-Q SCH (23:12)
[2019-06-08] MEDS: HumaLOG SUB-Q SCH (23:15)
[2019-06-09 05:14] LABS: Basophils % (Auto) 0.8 % (0.0-1.8); Eosinophils # (Auto) 0.2 K/mm3 (0.0-0.4); Eosinophils % (Auto) 6.2 % (0.0-4.3); Hematocrit 26.9 % (30.3-42.9); Hemoglobin 8.7 gm/dl (10.1-14.3); Lymphocytes % (Auto) 28.9 % (13.4-35.0); Mean Corpuscular HGB Conc 32 % (30-34); Mean Corpuscular Volume 77 fl (79-97); Monocytes # (Auto) 0.5 K/mm3 (0.0-0.8); Monocytes % (Auto) 13.7 % (0.0-7.3); Platelet Count 257 K/mm3 (140-440); Red Blood Count 3.48 M/mm3 (3.65-5.03); Red Cell Distribution Width 17.5 % (13.2-15.2)
[2019-06-09 05:40] LABS: Albumin 3.6 g/dL (3.9-5)
[2019-06-09] MEDS: HEPARIN SUB-Q SCH ×3 (05:46→22:50)
[2019-06-09] MEDS: NORMODYNE PO SCH ×2 (09:06→22:50)
[2019-06-09] MEDS: ECOTRIN PO SCH (09:06)
[2019-06-09] MEDS: CALAN SR PO SCH (09:06)
[2019-06-09] MEDS: FEOSOL PO SCH (09:06)
[2019-06-09] MEDS: HumaLOG SUB-Q SCH ×4 (09:10→22:51)
[2019-06-09] MEDS ORDERED: ZOFRAN ODT PO PRN (11:54)
--- NOTE | 2019-06-09 18:25 | History and Physical Report ---
History of Present Illness Date: 06/09/19 Date of admission: 06/08/19 20:46 Chief Complaint: CVA History of present illness: 49-year-old female admitted to outside hospital with shortness of breath and dyspnea on exertion. She is found to have a CHF exacerbation and hypertensive urgency with blood pressure 211/104. Cardiology and nephrology consults were placed. Lasix was discontinued due to elevated creatinine and should be restarted once creatinine is less than 3. Patient's baseline creatinine is 2.1- 2.2. Fluid restriction was started at 15 mL per day. Clonidine and hydralazine were both discontinued patient was continued on labetalol and verapamil. She had to iron infusions. Uncertain why patient was taken off of statin but per patient and her PCP advised not to take it. She does have a history of CVA but was only on aspirin. States statin was stopped by [employer]W OPERATOR [employer] due to pain in left shoulder which was more likely due to tone. Statin was restarted at outside Hospital. We'll discuss secondary stroke prevention with patient made sure that she and family understand her need to continue with the statin. Patient also has a history of relapsing remitting multiple sclerosis but has not had a flair in 3 years. States she has falls about once a week. After the patient was medically stabilized they were transferred for further rehabilitation. All available medical records have been reviewed. Plan of care was discussed with patient. Past History Past Medical History: anemia, diabetes, heart failure, hypertension, stroke, other (CKD, Relapsing/remitting MS, [place] palsy) Past Surgical History: cholecystectomy Social history: lives with family (2 level home, with sister. Father assists. ), full code, other (RW). denies: smoking (former), alcohol abuse, prescription drug abuse, IV drug use Family history: diabetes, hypertension, stroke Medications and Allergies Allergies Allergy/AdvReac Type Severity Reaction Status Date / Time amlodipine besylate Allergy Vomiting Verified 01/21/14 20:31 [From Norvasc] hydromorphone HCl Allergy Vomiting Verified 01/21/14 20:31 [From Dilaudid] lisinopril Allergy Unknown Verified 01/21/14 20:31 Home Medications Medication Instructions Recorded Confirmed Last Taken Type Hydralazine HCl [Apresoline TAB] 50 mg PO TID 06/09/17 06/09/19 Unknown History Docusate Sodium [Colace CAP] 100 mg PO BID #60 capsule 06/12/17 06/09/19 Unknown Rx Aspirin [Aspirin BABY CHEW TAB] 81 mg PO QDAY #30 tab.chew 01/17/18 06/09/19 06/08/19 10:00 Rx AtorvaSTATin [Lipitor] 20 mg PO QHS #30 tablet 01/17/18 06/09/19 Unknown Rx Ferrous Sulfate [Feosol 325 MG tab] 325 mg PO BID #60 tablet 01/17/18 06/09/19 06/08/19 10:00 Rx Insulin Glargine [Lantus VIAL] 7 units SQ QHS 90 Days #90 units 01/17/18 06/09/19 Unknown Rx Labetalol [Labetalol 200mg TAB] 300 mg PO BID #60 tablet 01/17/18 06/09/19 06/08/19 10:00 Rx NIFEdipine XL [Procardia Xl] 60 mg PO QDAY #60 tablet 01/17/18 06/09/19 Unknown Rx hydrALAZINE [Apresoline TAB] 50 mg PO TID #90 tablet 01/17/18 06/09/19 Unknown Rx Active Meds: Active Medications Acetaminophen (Tylenol) 650 mg PO Q4H PRN PRN Reason: Pain MILD(1-3)/Fever >100.5/GALLARDO Aspirin (Ecotrin) 325 mg PO QDAY [facility] Last Admin: 06/09/19 09:06 Dose: 325 mg Documented by: Atorvastatin Calcium (Lipitor) 40 mg PO QHS [facility] Last Admin: 06/08/19 23:11 Dose: 40 mg Documented by: Bisacodyl (Dulcolax) [address] QDAY PRN PRN Reason: Constipation unrelieved by MOM Dextrose (D50w (25gm) Syringe) 50 ml IV PRN PRN PRN Reason: Hypoglycemia Ferrous Sulfate (Feosol) 325 mg PO QDAY [facility] Last Admin: 06/09/19 09:06 Dose: 325 mg Documented by: Heparin Sodium (Porcine) (Heparin) 5,000 unit SUB-Q Q8HR [facility] Last Admin: 06/09/19 16:13 Dose: 5,000 unit Documented by: Insulin Human Lispro (Humalog) 0 unit SUB-Q [facility]; Protocol Last Admin: 06/09/19 17:03 Dose: Not Given Documented by: Labetalol HCl (Normodyne) 100 mg PO BID [place] Ondansetron HCl (Zofran Odt) 4 mg PO Q6H PRN PRN Reason: Nausea And Vomiting Last Admin: 06/09/19 12:12 Dose: 4 mg Documented by: Senjarrod (Senokot) 8.6 mg PO Q12H PRN PRN Reason: Laxative Effect Verapamil HCl (Calan Sr) 240 mg PO DAILY [place] Review of Systems All systems: negative (ROS negative for 12 systems except as noted below with pertinent positives and negatives.) Constitutional: fatigue, poor appetite, no fever Ears, nose, mouth and throat: no decreased hearing, no dysphagia Cardiovascular: no chest pain, no palpitations, no rapid/irregular heart beat, no edema Respiratory: no cough with sputum Gastrointestinal: nausea, no abdominal pain, no vomiting, no diarrhea, no constipation Musculoskeletal: limitation of motion, gait dysfunction, frequent falls, no shooting arm pain, no arm numbness/tingling, no myalgias Integumentary: no rash, no pruritis, no redness, no sores Neurological: parathesias, lack of coordination, change in speech, gait dysfunction, motor disturbance, spasticity Psychiatric: no insomnia Exam - Exam Narrative exam: MUSCULOSKELETAL SPECIALTY EXAM CONSTITUTIONAL: Well developed, well nourished, appropriately groomed. RIGHT hand dominant. LYMPHATIC: No appreciable abnormalities palpable in neck RESPIRATORY: Clear to auscultation bilaterally, no increased work of breathing CARDIOVASCULAR: Regular Rate/ Rhythm, no swelling, edema or tenderness in BUE or BLE. Pulses palpable in all extremities. All extremities warm. GI: + bowel sounds, soft, NTTP, nondistended. INTEGUMENTARY: Normal, no lesion, rash, masses or bruising noted in extremities. MUSCULOSKELETAL: Slight sublux in L shoulder, otherwise BUE and BLE normal without defect, crepitus, subluxation, effusion, arthritic changes or TTP. SA EF WE EE FF FA HF KE ADF EHL APF R 03/15 overall L 3/5 3/5 3/5 3/5 3/5 3/5 4/5 4/5 4/5 4/5 4/5 ROM decreased on LUE Tone increased in LUE with spasticity NEURO: CN II : Visual farr full to confrontation CN II, III : PERRL CN III, IV, : EOMI CN V : Facial sensation intact CN VII : L facial droop and eye closure CN VIII : Hearing intact to finger rustle CN IX, X : Palate/uvula elevate midline, phonation normal CN XI : Intact shoulder shrug and head rotation CN XII : Tongue protrudes midline Sensation intact in all extremities without extinction. Reflexes 3+ bilaterally at biceps, brachioradialis and patella. No clonus at ankles. Coordination intact in RUE, decreased on LUE. No tremor noted in 4 extremities. Naming and repetition intact. Follows 2 step commands. Aphasia not appreciated Dysarthria not appreciated but she does have slowed maris when speaking Dysphagia not appreciated Neglect not appreciated POSTURE and GAIT: Sitting posture good. Balance and Gait deferred until seen with therapy. PSYCH: Alert, oriented x3, affect appears euthymic. Insight appears intact. - Constitutional Vitals: Vital Signs - 12hr 06/09/19 06/09/19 06/09/19 07:38 11:43 14:55 Temperature 36.2 C L 36.7 C 36.3 C L Pulse Rate 60 61 50 L Respiratory 18 20 18 Rate Blood Pressure 132/53 138/64 115/60 O2 Sat by Pulse 99 100 100 Oximetry - Allied health notes FIMS assesment as documented by PT/OT/ST: Grooming Patient cleans teeth/dentures: Yes Patient young/brushes hair: No Patient washes, rinses and Yes dries face: Patient washes, rinses and Yes dries hands: Patient shaves: Yes Patient applies make-up: No Patient performs (w/ make-up/ 4/5 (80%) shaving): Grooming FIM Score 5. Supervision ([place] applies toothpaste or opens containers.) Toileting Toileting Device Grab Bar Patient able to: Adjust clothes before,Clean self Patient able to perform: 2/3 (67%) Toileting FIM Score 4. Minimal Assistance (Patient = 75% or more. Needs touching.) Social interaction/Memory/Problem solving Social Interaction FIM Score 5. Supervision (Needs supv. <10%. Needs encouragement to participate.) Memory FIM Score 5. Supervision (Needs cueing <10%, stressful/ unfamiliar situations.) Problem Solving FIM Score 5. Supervision (Needs cueing <10% to solve routine problems.) Transfers Mode of Locomotion: Wheelchair Toilet Transfers FIM Score 4. Minimal Assistance (Patient = 75% or more. Needs touching.) Patient transferred to: Shower Shower Transfers FIM Score 4. Minimal Assistance (Patient = 75% or more. Needs touching.) Eating Eating FIM Score 5. Supervision/Set-Up (Needs help w/ containers, cutting meat, etc.) Dressing-Upper body Patient retrieves clothing No items: Patient applies/removes UE n/a prosthesis or orthosis: Upper Body Dressing FIM Score 4. Minimal Assistance (Patient = 75% or more. Needs touching.) Dressing-lower body Patient retrieves clothing No items: Patient applies/removes LE n/a prosthesis or orthosis: Lower Body Dressing FIM Score 3. Moderate Assistance (Patient = 50% or more) - Labs CBC & Chem 7: 06/09/19 04:41 06/09/19 04:41 Labs: Laboratory Results - last 72 hr 06/08/19 06/09/19 06/09/19 23:00 04:41 04:41 WBC 3.3 L RBC 3.48 L Hgb 8.7 L Hct 26.9 L MCV 77 L MCH 25 L MCHC 32 RDW 17.5 H Plt Count 257 Lymph % (Auto) 28.9 [place] % (Auto) 13.7 H Eos % (Auto) 6.2 H Baso % (Auto) 0.8 Lymph # 1.0 L [place] # 0.5 Eos # 0.2 Baso # 0.0 Seg Neutrophils % 50.4 Seg Neutrophils # 1.7 L Sodium 141 Potassium 4.1 Chloride 107.0 Carbon Dioxide 23 Anion Gap 15 BUN 28 H Creatinine 3.4 H Estimated GFR 18 BUN/Creatinine Ratio 8 Glucose 84 POC Glucose 75 Calcium 9.0 Total Bilirubin 0.20 AST 14 ALT 11 Alkaline Phosphatase 78 Total Protein 7.3 Albumin 3.6 L Albumin/Globulin Ratio 1.0 06/09/19 06/09/19 06/09/19 07:46 11:50 16:43 WBC RBC Hgb Hct MCV MCH MCHC RDW Plt Count Lymph % (Auto) [place] % (Auto) Eos % (Auto) Baso % (Auto) Lymph # [place] # Eos # Baso # Seg Neutrophils % Seg Neutrophils # Sodium Potassium Chloride Carbon Dioxide Anion Gap BUN Creatinine Estimated GFR BUN/Creatinine Ratio Glucose POC Glucose 85 98 95 Calcium Total Bilirubin AST ALT Alkaline Phosphatase Total Protein Albumin Albumin/Globulin Ratio Assessment and Plan Assessment and plan: Patient was assessed and evaluated for Acute Inpatient Rehab Unit. Due to the patients above-mentioned medical complexity, along with decreased functional mobility and self care, this patient continues to require and be appropriate for a comprehensive, multidisciplinary [id number] rehabilitation program. These needs cannot be met in an outpatient or other less intensive setting. The patient would continue to benefit from skilled therapy intervention for at least 3 hours per day, five days a week, with techniques specific to the needs of the patient to improve function, activities of daily living, and reintegration into the community. The patient continues to require: -- OT to improve ROM, self-care, and learn use of adaptive equipment -- PT to improve strength and balance, functional transfers, and ambulation with energy conservation techniques to improve functional mobility -- [employer]ER to address cognitive deficits and communication skills -- 24 hour RN to ensure and prevent skin breakdown, promote progressive independence while ensuring safety, ensure education regarding medications, and incorporation of the rehabilitation at the bedside -- 24 hour Prepress Specialist to coordinate this interdisciplinary program, and to manage/prevent complications as a result of the patients medical comorbidities. -Plan of care by day 4 -Weekly team conferences With such a program, there is a reasonable certainty that the goals individualized for this patient can be achieved within the specified length of stay. CVA with Left nondominant hemiplegia: discussed secondary stroke prevention and prognosis. continue medications and monitor for worsening neurologic condition LUE spasticity: Stretching with OT, would possibly benefit from splinting. If she tolerates it we can trial PO medications. May be a candidate for Botox outpatient CKD with acute exacerbation: avoid nephrotoxic medications, monitor renal func tion, nephrology consult HTN: continue medications, adjust for normotension DM 2: continue SSI, monitor GLU Z73.6 ADL dysfunction: OT will work on improving ability to perform ADLs (including assistive devices) to increase independence and decrease caregiver burden and improve functional transfers and mobility training. R26.2 Difficulty walking: PT will work on gait training and proper use of as sistive devices and advance as appropriate to use of stairs and outside ambulation on uneven surfaces. R26.81 Unsteadiness on feet: PT will work on improving static and dynamic sitting and standing balance as well as proper use of assistive devices to decrease risk of falls. R26.89 Abnormality of gait: PT will work to improve safety and efficiency of gait through neuromotor training and gait training along with instruction on proper use of assistive devices. M62.81 Muscle weakness: PT & OT will work on strengthening exercises to improve functional strength including mixture of closed and open kinetic chain exercises. R53.81 Debility: PT & OT will work on improving overall functional status to improve participation with ADLs, mobility and social involvement. R53.83 Fatigue: PT & OT will work on improving endurance through aerobic exercises and therapeutic activity while monitoring patients tolerance for activity and vital signs as needed. MS: monitor for any worsening symptoms DVT ppx: heparin Pain: Continue physical modalities in therapy and pain medications as needed to achieve functional pain control. Sleep: Monitor and address as needed. Bowel: Monitor and address as needed. PRN meds available Appetite: Monitor and address as needed. Discharge planning: Pending therapy progress and care plan meeting. Will continue discussion with therapy team, SW, patient and family. Restrictions/ Precautions: Falls WB status: FWB Functional Hx: ADLs: Independent Cognition: Independent Mobility: RW Barriers to Discharge: Decreased mobility and ability to perform self care, ba jamar deficits, weakness, spasticity Estimated Length of Stay: 14-18 days Discharge Destination: Home with family POST ADMISSION PHYSICIAN EVALUATION I have examined the patient and find that functional status, medical condition and appropriateness for IRF admission are essentially unchanged from those described in the preadmission screening. Will monitor for worsening neurologic decline, spasticity, DVT/PE, bowel and bladder complications and complications due to renal function, HTN, DM, MS and electrolyte abnormalities. Will attempt to avoid occurrence of these issues or treat them if they present themselves.
[2019-06-10] MEDS: HEPARIN SUB-Q SCH ×3 (05:54→22:54)
[2019-06-10 07:23] LABS: Hematocrit 27.7 % (30.3-42.9); Hemoglobin 8.8 gm/dl (10.1-14.3); Mean Corpuscular HGB Conc 32 % (30-34); Mean Corpuscular Volume 79 fl (79-97); Platelet Count 251 K/mm3 (140-440); Red Blood Count 3.53 M/mm3 (3.65-5.03); Red Cell Distribution Width 17.6 % (13.2-15.2)
[2019-06-10] MEDS: ECOTRIN PO SCH (08:58)
[2019-06-10] MEDS: FEOSOL PO SCH (08:58)
[2019-06-10] MEDS: NORMODYNE PO SCH ×3 (08:59→22:53)
[2019-06-10] MEDS: HumaLOG SUB-Q SCH ×4 (08:59→22:00)
[2019-06-10] MEDS: CALAN SR PO SCH (08:59)
--- NOTE | 2019-06-10 09:23 | Progress Note ---
Subjective Date of service: 06/10/19 Principal diagnosis: CVA, debility Interval history: 49-year-old female admitted to outside hospital with shortness of breath and dyspnea on exertion. She is found to have a CHF exacerbation and hypertensive urgency with blood pressure 211/104. Cardiology and nephrology consults were placed. Lasix was discontinued due to elevated creatinine and should be restarted once creatinine is less than 3. Patient's baseline creatinine is 2-3 (both values found in records). Fluid restriction was started at 1500 mL per day. Clonidine and hydralazine were both discontinued patient was continued on labetalol and verapamil. She had two iron infusions. Uncertain why patient was taken off of statin but per patient and her PCP advised not to take it. She yanez s have a history of CVA but was only on aspirin. States statin was stopped by [employer] INSPECTOR due to pain in left shoulder which was more likely due to tone. Statin was restarted at outside Hospital. We'll discuss secondary stroke prevention with patient made sure that she and family understand her need to continue with the statin. Patient also has a history of relapsing remitting multiple sclerosis but has not had a flair in 3 years. States she has falls about once a week. Patient is participating in therapy and making reasonable progress. Taking rest breaks as needed. +BM. Denies pain, palpitations, dyspnea, cough, N/V. Folate is low, replace. Left shoulder pain somewhat better after therapy. Tone improved slightly. BP elevated, adjusting medications. PRN available. Continue therapy for LUE and monitor for need to start PO meds. All records, vitals, labs and medications were reviewed. No other issues per patient, nursing or therapy. Objective - Exam Narrative Exam: MUSCULOSKELETAL SPECIALTY EXAM CONSTITUTIONAL: Well developed, well nourished, appropriately groomed. RIGHT hand dominant. RESPIRATORY: Clear to auscultation bilaterally, no increased work of breathing CARDIOVASCULAR: Regular Rate/ Rhythm, no swelling, edema or tenderness in BUE or BLE. All extremities warm. GI: + bowel sounds, soft, NTTP, nondistended. INTEGUMENTARY: Normal, no lesion, rash, masses or bruising noted in extremities. MUSCULOSKELETAL: Slight sublux in L shoulder, otherwise BUE and BLE normal without defect, cre pitus, subluxation, effusion, arthritic changes or TTP. SA EF WE EE FF FA HF KE ADF EHL APF R 03/15 overall L 3/5 3/5 3/5 3/5 3/5 3/5 4/5 4/5 4/5 4/ 45 ROM decreased on LUE Tone increased in LUE with spasticity NEURO L facial droop Sensation intact in all extremities without extinction. No tremor noted in 4 extremities. Naming and repetition intact. Follows 2 step commands. Aphasia not appreciated Dysarthria not appreciated but she does have slowed maris when speaking Dysphagia not appreciated Neglect not appreciated POSTURE and GAIT: Sitting posture good. Balance and Gait deferred until seen with therapy. PSYCH: Alert, oriented x3, affect appears euthymic. Insight appears intact. - Constitutional Vitals: Vital Signs - 12hr 06/09/19 06/10/19 06/10/19 22:50 00:02 04:35 Temperature 37.0 C 36.9 C Pulse Rate 66 66 65 Respiratory 16 18 Rate Blood Pressure 194/87 153/72 163/67 O2 Sat by Pulse 97 100 Oximetry 06/10/19 07:45 Temperature 36.6 C Pulse Rate 69 Respiratory 18 Rate Blood Pressure 176/81 O2 Sat by Pulse 96 Oximetry - Allied health notes Allied health notes reviewed: nursing, PT FIMS assessment as documented by PT/OT/ST: Grooming Patient cleans teeth/dentures: Yes Patient young/brushes hair: No Patient washes, rinses and Yes dries face: Patient washes, rinses and Yes dries hands: Patient shaves: Yes Patient applies make-up: No Patient performs (w/ make-up/ 02/13 (80%) shaving): Grooming FIM Score 5. Supervision ([place] applies toothpaste or opens containers.) Toileting Toileting Device Grab Bar Patient able to: Adjust clothes before,Clean self Patient able to perform: 2/3 (67%) Toileting FIM Score 4. Minimal Assistance (Patient = 75% or more. Needs touching.) Social interaction/Memory/Problem solving Social Interaction FIM Score 5. Supervision (Needs supv. <10%. Needs encouragement to participate.) Memory FIM Score 5. Supervision (Needs cueing <10%, stressful/ unfamiliar situations.) Problem Solving FIM Score 5. Supervision (Needs cueing <10% to solve routine problems.) Transfers Mode of Locomotion: Wheelchair Bed/Chair/Wheelchair Transfers 3. Moderate Assistance (Patient = 50% or more. FIM Score Some lifting.) Toilet Transfers FIM Score 4. Minimal Assistance (Patient = 75% or more. Needs touching.) Patient transferred to: Shower Shower Transfers FIM Score 4. Minimal Assistance (Patient = 75% or more. Needs touching.) Locomotion- Stairs Device used on Stairs Handrail/s Number of Stairs Ascended/ 4 Descended Patient used handrail/support: Yes Stairs FIM Score 2. Maximal Assistance (Patient = 25% or more, 4- 6 stairs.) Locomotion- walk/wheelchair Most Frequent Mode of Wheelchair Locomotion: Ambulation Distance 50 Walking FIM Score 2. Maximal Assistance (Patient = 25% or more. Minimum of 50 ft.) Wheelchair Propulsion Distance 15 Wheelchair FIM Score 1. Total Assistance (Pt. < 25%, 2 or more person assist, or <50 ft.) Eating Eating FIM Score 5. Supervision/Set-Up (Needs help w/ containers, cutting meat, etc.) Dressing-Upper body Patient retrieves clothing No items: Patient applies/removes UE n/a prosthesis or orthosis: Upper Body Dressing FIM Score 4. Minimal Assistance (Patient = 75% or more. Needs touching.) Dressing-lower body Patient retrieves clothing No items: Patient applies/removes LE n/a prosthesis or orthosis: Lower Body Dressing FIM Score 3. Moderate Assistance (Patient = 50% or more) - Labs CBC & Chem 7: 06/10/19 06:56 06/10/19 06:56 Labs: Laboratory Results - last 72 hr 06/08/19 06/09/19 06/09/19 23:00 04:41 04:41 WBC 3.3 L RBC 3.48 L Hgb 8.7 L Hct 26.9 L MCV 77 L MCH 25 L MCHC 32 RDW 17.5 H Plt Count 257 Lymph % (Auto) 28.9 [place] % (Auto) 13.7 H Eos % (Auto) 6.2 H Baso % (Auto) 0.8 Lymph # 1.0 L [place] # 0.5 Eos # 0.2 Baso # 0.0 Seg Neutrophils % 50.4 Seg Neutrophils # 1.7 L Sodium 141 Potassium 4.1 Chloride 107.0 Carbon Dioxide 23 Anion Gap 15 BUN 28 H Creatinine 3.4 H Estimated GFR 18 BUN/Creatinine Ratio 8 Glucose 84 POC Glucose 75 Hemoglobin A1c Calcium 9.0 Total Bilirubin 0.20 AST 14 ALT 11 Alkaline Phosphatase 78 Total Protein 7.3 Albumin 3.6 L Albumin/Globulin Ratio 1.0 Vitamin B12 Folate 06/09/19 06/09/19 06/09/19 07:46 11:50 16:43 WBC RBC Hgb Hct MCV MCH MCHC RDW Plt Count Lymph % (Auto) [place] % (Auto) Eos % (Auto) Baso % (Auto) Lymph # [place] # Eos # Baso # Seg Neutrophils % Seg Neutrophils # Sodium Potassium Chloride Carbon Dioxide Anion Gap BUN Creatinine Estimated GFR BUN/Creatinine Ratio Glucose POC Glucose 85 98 95 Hemoglobin A1c Calcium Total Bilirubin AST ALT Alkaline Phosphatase Total Protein Albumin Albumin/Globulin Ratio Vitamin B12 Folate 06/09/19 06/10/19 06/10/19 20:37 06:56 06:56 WBC 3.1 L RBC 3.53 L Hgb 8.8 L Hct 27.7 L MCV 79 MCH 25 L MCHC 32 RDW 17.6 H Plt Count 251 Lymph % (Auto) [place] % (Auto) Eos % (Auto) Baso % (Auto) Lymph # [place] # Eos # Baso # Seg Neutrophils % Seg Neutrophils # Sodium Potassium Chloride Carbon Dioxide Anion Gap BUN Creatinine Estimated GFR BUN/Creatinine Ratio Glucose POC Glucose 99 Hemoglobin A1c Calcium Total Bilirubin AST ALT Alkaline Phosphatase Total Protein Albumin Albumin/Globulin Ratio Vitamin B12 545.3 Folate 06/10/19 06/10/19 06:56 06:56 WBC RBC Hgb Hct MCV MCH MCHC RDW Plt Count Lymph % (Auto) [place] % (Auto) Eos % (Auto) Baso % (Auto) Lymph # [place] # Eos # Baso # Seg Neutrophils % Seg Neutrophils # Sodium Potassium Chloride Carbon Dioxide Anion Gap BUN Creatinine Estimated GFR BUN/Creatinine Ratio Glucose POC Glucose Hemoglobin A1c 4.9 Calcium Total Bilirubin AST ALT Alkaline Phosphatase Total Protein Albumin Albumin/Globulin Ratio Vitamin B12 Folate 5.58 L Assessment and Plan CVA with Left nondominant hemiplegia: discussed secondary stroke prevention and prognosis. continue medications and monitor for worsening neurologic condition LUE spasticity: Stretching with OT, would possibly benefit from splinting. If she tolerates it we can trial PO medications. May be a candidate for Botox outpatient CKD with acute exacerbation: avoid nephrotoxic medications, monitor renal function, nephrology consult HTN: continue medications, adjust for normotension DM 2: continue SSI, monitor GLU Z73.6 ADL dysfunction: OT will work on improving ability to perform ADLs (including assistive devices) to increase independence and decrease caregiver burden and improve functional transfers and mobility training. R26.2 Difficulty walking: PT will work on gait training and proper use of assistive devices and advance as appropriate to use of stairs and outside ambulation on uneven surfaces. R26.81 Unsteadiness on feet: PT will work on improving static and dynamic sitting and standing balance as well as proper use of assistive devices to decrease risk of falls. R26.89 Abnormality of gait: PT will work to improve safety and efficiency of gait through neuromotor training and gait training along with instruction on proper use of assistive devices. M62.81 Muscle weakness: PT & OT will work on strengthening exercises to improve functional strength including mixture of closed and open kinetic chain exercises. R53.81 Debility: PT & OT will work on improving overall functional status to improve participation with ADLs, mobility and social involvement. R53.83 Fatigue: PT & OT will work on improving endurance through aerobic exercises and therapeutic activity while monitoring patients tolerance for activity and vital signs as needed. MS: monitor for any worsening symptoms DVT ppx: heparin Pain: Continue physical modalities in therapy and pain medications as needed to achieve functional pain control. Sleep: Monitor and address as needed. Bowel: Monitor and address as needed. PRN meds available Appetite: Monitor and address as needed. Discharge planning: Pending therapy progress and care plan meeting. Will continue discussion with therapy team, SW, patient . Restrictions/ Precautions: Falls WB status: FWB Functional Hx: ADLs: Independent Cognition: Independent Mobility: RW Barriers to Discharge: Decreased mobility and ability to perform self care, balance deficits, weakness, spasticity Estimated Length of Stay: 14-18 days Discharge Destination: Home with family
[2019-06-10] MEDS: APRESOLINE PO PRN ×2 (11:56→17:15)
[2019-06-10] MEDS: FOLVITE PO SCH (11:56)
[2019-06-10 14:32] LABS: Calcium 9.4 mg/dL (8.4-10.2); Chol/HDL Ratio 2.27 %
[2019-06-11] MEDS: APRESOLINE PO PRN (05:49)
[2019-06-11] MEDS: HEPARIN SUB-Q SCH ×3 (05:51→22:11)
[2019-06-11] MEDS: HumaLOG SUB-Q SCH ×3 (07:09→18:03)
[2019-06-11 07:43] LABS: Calcium 9.4 mg/dL (8.4-10.2)
--- NOTE | 2019-06-11 09:40 | Progress Note ---
Subjective Date of service: 06/11/19 Principal diagnosis: CVA, debility Interval history: 49-year-old female admitted to outside hospital with shortness of breath and dyspnea on exertion. She is found to have a CHF exacerbation and hypertensive urgency with blood pressure 211/104. Cardiology and nephrology consults were placed. Lasix was discontinued due to elevated creatinine and should be restarted once creatinine is less than 3. Patient's baseline creatinine is 2-3 (both values found in records). Fluid restriction was started at 1500 mL per day. Clonidine and hydralazine were both discontinued patient was continued on labetalol and verapamil. She had two iron infusions. Uncertain why patient was taken off of statin but per patient and her PCP advised not to take it. She yanez s have a history of CVA but was only on aspirin. States statin was stopped by [employer] TECHNICIAN due to pain in left shoulder which was more likely due to tone. Statin was restarted at outside Hospital. We'll discuss secondary stroke prevention with patient made sure that she and family understand her need to continue with the statin. Patient also has a history of relapsing remitting multiple sclerosis but has not had a flair in 3 years. States she has falls about once a week. Patient is participating in therapy and making reasonable progress. Taking rest breaks as needed. +BM. Denies pain, palpitations, dyspnea, cough, N/V. Ambulating with kavon walker or quad cane. Left shoulder pain somewhat better after therapy. Tone improved slightly. BP elevated, increased hydralazine. . PRN available. Continue therapy for LUE and monitor for need to start PO meds. Discussed in team conference. Making progress. Will look into splint for LUE. Ambulation improving. All records, vitals, labs and medications were reviewed. No other issues per patient, nursing or therapy. Objective - Exam Narrative Exam: MUSCULOSKELETAL SPECIALTY EXAM CONSTITUTIONAL: Well developed, well nourished, appropriately groomed. RIGHT hand dominant. RESPIRATORY: Clear to auscultation bilaterally, no increased work of breathing CARDIOVASCULAR: Regular Rate/ Rhythm, no swelling, edema or tenderness in BUE or BLE. All extremities warm. GI: + bowel sounds, soft, NTTP, nondistended. INTEGUMENTARY: Normal, no lesion, rash, masses or bruising noted in extremities. MUSCULOSKELETAL: Slight sublux in L shoulder, otherwise BUE and BLE normal without defect, crepitus, subluxation, effusion, arthritic changes or TTP. SA EF WE EE FF FA HF KE ADF EHL APF R 03/15 overall L 3/ 3/ 3/ 3/ 3/ 3/ 4/5 4/ 4/ 4/5 ROM decreased on LUE Tone increased in LUE with spasticity NEURO L facial droop Sensation intact in all extremities without extinction. No tremor noted in 4 extremities. Naming and repetition intact. Follows 2 step commands. Aphasia not appreciated Dysarthria not appreciated but she does have slowed maris when speaking Dysphagia not appreciated Neglect not appreciated POSTURE and GAIT: Sitting posture good. Balance and Gait deferred until seen with therapy. PSYCH: Alert, oriented x3, affect appears euthymic. Insight appears intact. - Constitutional Vitals: Vital Signs - 12hr 06/10/19 06/11/19 06/11/19 22:53 05:49 07:12 Temperature 36.5 C Pulse Rate 84 84 69 Respiratory 18 Rate Blood Pressure 183/84 173/83 Blood Pressure 173/82 [Right] O2 Sat by Pulse 99 Oximetry 06/11/19 08:01 Temperature 36.5 C Pulse Rate 60 Respiratory 18 Rate Blood Pressure Blood Pressure 193/86 [Right] O2 Sat by Pulse 100 Oximetry - Allied health notes Allied health notes reviewed: nursing, PT, OT FIMS assessment as documented by PT/OT/ST: Grooming Patient cleans teeth/dentures: Yes Patient young/brushes hair: No Patient washes, rinses and Yes dries face: Patient washes, rinses and Yes dries hands: Patient shaves: Yes Patient applies make-up: No Patient performs (w/ make-up/ 4/5 (80%) shaving): Grooming FIM Score 5. Supervision ([place] applies toothpaste or opens containers.) Toileting Toileting Device Grab Bar Patient able to: Adjust clothes before,Clean self Patient able to perform: 2/3 (67%) Toileting FIM Score 4. Minimal Assistance (Patient = 75% or more. Needs touching.) Social interaction/Memory/Problem solving Social Interaction FIM Score 7. Complete [place] (Interacts appropriately. Controls temper.) Memory FIM Score 5. Supervision (Needs cueing <10%, stressful/ unfamiliar situations.) Problem Solving FIM Score 5. Supervision (Needs cueing <10% to solve routine problems.) Transfers Mode of Locomotion: Wheelchair Bed/Chair/Wheelchair Transfers 4. Minimal Assistance (Patient = 75% or more. FIM Score Needs touching.) Toilet Transfers FIM Score 4. Minimal Assistance (Patient = 75% or more. Needs touching.) Patient transferred to: Shower Shower Transfers FIM Score 4. Minimal Assistance (Patient = 75% or more. Needs touching.) Locomotion- Stairs Device used on Stairs Handrail/s Number of Stairs Ascended/ 4 Descended Patient used handrail/support: Yes Stairs FIM Score 2. Maximal Assistance (Patient = 25% or more, 4- 6 stairs.) Locomotion- walk/wheelchair Most Frequent Mode of Wheelchair Locomotion: Ambulation Distance 92 Walking FIM Score 2. Maximal Assistance (Patient = 25% or more. Minimum of 50 ft.) Wheelchair Propulsion Distance 50 Wheelchair FIM Score 2. Maximal Assistance (Patient = 25% or more. Minimum of 50 ft.) Eating Eating FIM Score 5. Supervision/Set-Up (Needs help w/ containers, cutting meat, etc.) Dressing-Upper body Patient retrieves clothing No items: Patient applies/removes UE n/a prosthesis or orthosis: Upper Body Dressing FIM Score 4. Minimal Assistance (Patient = 75% or more. Needs touching.) Dressing-lower body Patient retrieves clothing No items: Patient applies/removes LE n/a prosthesis or orthosis: Lower Body Dressing FIM Score 3. Moderate Assistance (Patient = 50% or more) - Labs CBC & Chem 7: 06/10/19 06:56 06/11/19 07:06 Labs: Laboratory Results - last 72 hr 06/08/19 06/09/19 06/09/19 23:00 04:41 04:41 WBC 3.3 L RBC 3.48 L Hgb 8.7 L Hct 26.9 L MCV 77 L MCH 25 L MCHC 32 RDW 17.5 H Plt Count 257 Lymph % (Auto) 28.9 [place] % (Auto) 13.7 H Eos % (Auto) 6.2 H Baso % (Auto) 0.8 Lymph # 1.0 L [place] # 0.5 Eos # 0.2 Baso # 0.0 Seg Neutrophils % 50.4 Seg Neutrophils # 1.7 L Sodium 141 Potassium 4.1 Chloride 107.0 Carbon Dioxide 23 Anion Gap 15 BUN 28 H Creatinine 3.4 H Estimated GFR 18 BUN/Creatinine Ratio 8 Glucose 84 POC Glucose 75 Hemoglobin A1c Calcium 9.0 Iron TIBC Total Bilirubin 0.20 AST 14 ALT 11 Alkaline Phosphatase 78 Total Protein 7.3 Albumin 3.6 L Albumin/Globulin Ratio 1.0 Triglycerides Cholesterol LDL Cholesterol Direct HDL Cholesterol Cholesterol/HDL Ratio Vitamin B12 Folate 06/09/19 06/09/19 06/09/19 07:46 11:50 16:43 WBC RBC Hgb Hct MCV MCH MCHC RDW Plt Count Lymph % (Auto) [place] % (Auto) Eos % (Auto) Baso % (Auto) Lymph # [place] # Eos # Baso # Seg Neutrophils % Seg Neutrophils # Sodium Potassium Chloride Carbon Dioxide Anion Gap BUN Creatinine Estimated GFR BUN/Creatinine Ratio Glucose POC Glucose 85 98 95 Hemoglobin A1c Calcium Iron TIBC Total Bilirubin AST ALT Alkaline Phosphatase Total Protein Albumin Albumin/Globulin Ratio Triglycerides Cholesterol LDL Cholesterol Direct HDL Cholesterol Cholesterol/HDL Ratio Vitamin B12 Folate 06/09/19 06/10/19 06/10/19 20:37 06:56 06:56 WBC 3.1 L RBC 3.53 L Hgb 8.8 L Hct 27.7 L MCV 79 MCH 25 L MCHC 32 RDW 17.6 H Plt Count 251 Lymph % (Auto) [place] % (Auto) Eos % (Auto) Baso % (Auto) Lymph # [place] # Eos # Baso # Seg Neutrophils % Seg Neutrophils # Sodium 141 Potassium 4.3 Chloride 104.3 Carbon Dioxide 21 L Anion Gap 20 BUN 25 H Creatinine 3.3 H Estimated GFR 18 BUN/Creatinine Ratio 8 Glucose 66 POC Glucose 99 Hemoglobin A1c Calcium 9.4 Iron 43 TIBC 272 Total Bilirubin AST ALT Alkaline Phosphatase Total Protein Albumin Albumin/Globulin Ratio Triglycerides 82 Cholesterol 175 LDL Cholesterol Direct 86 HDL Cholesterol 77 H Cholesterol/HDL Ratio 2.27 Vitamin B12 Folate 06/10/19 06/10/19 06/10/19 06:56 06:56 06:56 WBC RBC Hgb Hct MCV MCH MCHC RDW Plt Count Lymph % (Auto) [place] % (Auto) Eos % (Auto) Baso % (Auto) Lymph # [place] # Eos # Baso # Seg Neutrophils % Seg Neutrophils # Sodium Potassium Chloride Carbon Dioxide Anion Gap BUN Creatinine Estimated GFR BUN/Creatinine Ratio Glucose POC Glucose Hemoglobin A1c 4.9 Calcium Iron TIBC Total Bilirubin AST ALT Alkaline Phosphatase Total Protein Albumin Albumin/Globulin Ratio Triglycerides Cholesterol LDL Cholesterol Direct HDL Cholesterol Cholesterol/HDL Ratio Vitamin B12 545.3 Folate 5.58 L 06/10/19 06/10/19 06/10/19 08:09 11:58 16:40 WBC RBC Hgb Hct MCV MCH MCHC RDW Plt Count Lymph % (Auto) [place] % (Auto) Eos % (Auto) Baso % (Auto) Lymph # [place] # Eos # Baso # Seg Neutrophils % Seg Neutrophils # Sodium Potassium Chloride Carbon Dioxide Anion Gap BUN Creatinine Estimated GFR BUN/Creatinine Ratio Glucose POC Glucose 69 L 86 82 Hemoglobin A1c Calcium Iron TIBC Total Bilirubin AST ALT Alkaline Phosphatase Total Protein Albumin Albumin/Globulin Ratio Triglycerides Cholesterol LDL Cholesterol Direct HDL Cholesterol Cholesterol/HDL Ratio Vitamin B12 Folate 06/10/19 06/11/19 21:57 07:06 WBC RBC Hgb Hct MCV MCH MCHC RDW Plt Count Lymph % (Auto) [place] % (Auto) Eos % (Auto) Baso % (Auto) Lymph # [place] # Eos # Baso # Seg Neutrophils % Seg Neutrophils # Sodium 141 Potassium 4.2 Chloride 105.4 Carbon Dioxide 22 Anion Gap 18 BUN 24 H Creatinine 3.1 H Estimated GFR 19 BUN/Creatinine Ratio 8 Glucose 82 POC Glucose 70 Hemoglobin A1c Calcium 9.4 Iron TIBC Total Bilirubin AST ALT Alkaline Phosphatase Total Protein Albumin Albumin/Globulin Ratio Triglycerides Cholesterol LDL Cholesterol Direct HDL Cholesterol Cholesterol/HDL Ratio Vitamin B12 Folate Assessment and Plan CVA with Left nondominant hemiplegia: discussed secondary stroke prevention and prognosis. continue medications and monitor for worsening neurologic condition LUE spasticity: Stretching with OT, would possibly benefit from splinting. If she tolerates it we can trial PO medications. May be a candidate for Botox outpatient CKD with acute exacerbation: avoid nephrotoxic medications, monitor renal function, nephrology consult HTN: continue medications, adjust for normotension DM 2: continue SSI, monitor GLU Z73.6 ADL dysfunction: OT will work on improving ability to perform ADLs (including assistive devices) to increase independence and decrease caregiver burden and improve functional transfers and mobility training. R26.2 Difficulty walking: PT will work on gait training and proper use of assistive devices and advance as appropriate to use of stairs and outside ambulation on uneven surfaces. R26.81 Unsteadiness on feet: PT will work on improving static and dynamic sitting and standing balance as well as proper use of assistive devices to decrease risk of falls. R26.89 Abnormality of gait: PT will work to improve safety and efficiency of gait through neuromotor training and gait training along with instruction on proper use of assistive devices. M62.81 Muscle weakness: PT & OT will work on strengthening exercises to improve functional strength including mixture of closed and open kinetic chain exercises. R53.81 Debility: PT & OT will work on improving overall functional status to improve participation with ADLs, mobility and social involvement. R53.83 Fatigue: PT & OT will work on improving endurance through aerobic exercises and therapeutic activity while monitoring patients tolerance for activity and vital signs as needed. MS: monitor for any worsening symptoms DVT ppx: heparin Pain: Continue physical modalities in therapy and pain medications as needed to achieve functional pain control. Sleep: Monitor and address as needed. Bowel: Monitor and address as needed. PRN meds available Appetite: Monitor and address as needed. Discharge planning: Pending therapy progress and care plan meeting. Will continue discussion with therapy team, SW, patient . Restrictions/ Precautions: Falls WB status: FWB Functional Hx: ADLs: Independent Cognition: Independent Mobility: RW Barriers to Discharge: Decreased mobility and ability to perform self care, balance deficits, weakness, spasticity Estimated Length of Stay: 14-18 days Discharge Destination: Home with family
[2019-06-11] MEDS: FOLVITE PO SCH (10:51)
[2019-06-11] MEDS: ECOTRIN PO SCH (10:52)
[2019-06-11] MEDS: NORMODYNE PO SCH ×2 (10:52→22:11)
[2019-06-11] MEDS: APRESOLINE PO SCH ×3 (10:52→22:10)
[2019-06-11] MEDS: FEOSOL PO SCH (10:53)
[2019-06-11] MEDS: CALAN SR PO SCH (10:53)
--- NOTE | 2019-06-11 21:44 | IRU Plan of Care ---
Interdisciplinary Plan of Care - IP IRU INTERDISCIPLINARY PLAN: [facility] Inpatient Rehab Unit Plan of Care IRU Interdisciplinary Care Plan Start: 06/08/19 22:31 Freq: Admission then PRN Status: Active Protocol: Document 06/11/19 17:26 TH (Rec: 06/11/19 17:29 TH [id number]) Interdisciplinary Problem List Interdisciplinary Problem List Interdisciplinary Problem List Impaired Eating/Swallowing, Query Text:Answers will Trigger Problems Impaired Bathing/Grooming, and Outcomes on Worklist. Impaired Dressing,Impaired Mobility,Impaired Transfers, Impaired Toileting,Impaired Home Management,Impaired Safety IRU Interdisciplinary Care Plan Therapy Services Therapy Services Will Include: Physical Therapy,Occupational Query Text:Patient will be seen for a Therapy minimum of 3 hours of daily therapy 5 out of 7 days a week. Therapy intensity may be adjusted within a 7 consecutive day period to effectively serve the individual needs of the patient. Treatment Frequency/Intensity/Duration Treatment Frequency 5 days per week Treatment Intensity 3 hours per day Treatment Duration 14-21 days Problem Area: Eating/Swallowing Eating/Swallowing Outcomes Eating/Swallowing Interventions Problem Area: Bathing/Grooming Bathing/Grooming Outcomes Improve [place] w/ Grooming,Improve [place] w/ Bathing Bathing/Grooming Interventions ADL Training,Use of Assistive Devices,Therapeutic Exercise, Therapeutic Activity, Neuromuscular Re-Education, Balance Work,Activity Tolerance Work,Patient/ Caregiver Education Problem Area: Dressing Dressing Outcomes Improve [place] w/ UB Dressing,Improve [place] w/ LB Dressing Dressing Interventions ADL Training,Use of Assistive Devices,Neuromuscular Re- Education,Therapeutic Exercise ,Balance Work,Modalities, Patient/Caregiver Education Problem Area: Mobility Mobility Outcomes Improve [place] w/ Bed Mobility,Improve [place] w/ Ambulation,Improve [place] w/ Stairs/Curb, Improve [place] w/ Wheelchair Mobility Interventions Therapeutic Exercise, Neuromuscular Re-Ed., Modalities,Use of Assistive Devices,Patient/Caregiver Education,Bed Mobility Work, Gait Training,W/C Mobility Work Problem Area: Transfers Transfers Outcomes Improve [place] w/ Toilet Transfers,Improve [place] w/ Tub/Shower Transfers Transfers Interventions Transfer Training,Therapeutic Exercise,Neuromuscular Re- Education,Visual/Perceptual Training,Activity Tolerance Work,Modalities,Use of Assistive Devices,Patient/ Caregiver Education Problem Area: Bowel/Bladder Managment Bowel/Bladder Outcomes Bowel/Bladder Interventions Problem Area: Toileting Toileting Outcomes Improve [place] w/ Toileting Toileting Interventions ADL Training,Balance Work,Use of Assistive Devices,Patient/ Caregiver Education Problem Area: Nutrition Nutrition Outcomes Nutrition Interventions Problem Area: Comprehension Comprehension Outcomes Comprehension Interventions Problem Area: Expression Expression Outcomes Expression Interventions Problem Area: Problem Solving Problem Solving Outcomes Problem Solving Interventions Problem Area: Memory Memory Outcomes Memory Interventions Problem Area: Pain Management Pain Management Outcomes Pain Management Interventions Problem Area: Knowledge Deficits Knowledge Deficits Outcomes Verbalize Precautions, Verbalize Understanding of S/S of Stroke Knowledge Deficits Interventions Disease/Injury/Sx. Intervention Education,Disease Management Education,Health Maintainence Education,Safety Education Problem Area: Skin/Tissue Integrity Skin/Tissue Integrity Outcomes Skin/Tissue Integrity Interventions Problem Area: Social Interaction Social Interaction Outcomes Social Interaction Interventions Problem Area: Adjustment to Disability Adjustment to Disability Outcomes Adjustment to Disability Interventions Problem Area: Discharge Concerns Discharge Concerns Outcomes Discharge w/ Necessary Equipment,Have Home Health/ Outpatient Services Discharge Concerns Interventions Discharge Planning,Family/ Caregiver Conference,Family/ Caregiver Training Problem Area: Community Reintegration Community Reintegration Outcomes Community Reintegration Interventions Problem Area: Home Management Home Management Outcomes Improve [place] w/ Home Management Home Management Interventions Meal Preparation,Clothing Care ,Activity Tolerance Work Problem Area: Safety Safety Outcomes Provide Safe Environment, Perform Selfcare Safely, Demonstrate Good Safety w/ Transfers/Mobility Safety Interventions Identify Fall Risk,[place] Pt. to Environment,Reduce Environmental Hazards,Neuro Check Assessment,Implement Mechanical Devices, i.e. Chair Alarm (Post Fall Update),Re- Educate Patient/Caregiver for Safety (Post Fall Update) Problem Area: Medication Education Medication Education Outcomes Patient/Caregiver will Verbalize Understanding of Medications Medication Education Interventions Explain Administration/Side Effects/Interactions Problem Area: Diabetes Education Diabetes Education Outcomes Demonstrate Knowledge of Resources Availlable in Diabetic Ed. Folder Diabetes Education Interventions Discuss Pathophysiology of Diabetes Problem Area: Oxygenation Oxygenation Outcomes Oxygenation Interventions Problem Area: Cardiovascular Cardiovascular Outcomes Cardiovascular Interventions Physician Only Medical Prognosis and Rehabilitation Multiple comorbidities. Fair medical prognosis and good rehab potential. Will continue to work on increase UE tone to improve her ability to perform self care and return home independently with her sister. Potential (Completed by Physician) This plan of care has been developed based on the findings from the pre- admission assessment, post admission physician evaluation, information gathered from the assessments from all therapy disciplines and other pertinent clinicians. The plan of care has been reviewed and discussed in collaboration with the interdisciplinary team. The plan of care will be reviewed and updated at least weekly.
[2019-06-12] MEDS: HumaLOG SUB-Q SCH ×4 (06:19→17:51)
[2019-06-12] MEDS: HEPARIN SUB-Q SCH ×3 (06:29→22:02)
[2019-06-12] MEDS: APRESOLINE PO SCH ×3 (06:29→22:01)
[2019-06-12 08:17] LABS: Hematocrit 31.1 % (30.3-42.9); Hemoglobin 9.9 gm/dl (10.1-14.3); Mean Corpuscular HGB Conc 32 % (30-34); Mean Corpuscular Volume 79 fl (79-97); Platelet Count 286 K/mm3 (140-440); Red Blood Count 3.95 M/mm3 (3.65-5.03); Red Cell Distribution Width 18.7 % (13.2-15.2)
[2019-06-12 08:40] LABS: Calcium 9.4 mg/dL (8.4-10.2)
--- NOTE | 2019-06-12 09:05 | Progress Note ---
Subjective Date of service: 06/12/19 Principal diagnosis: CVA, debility Interval history: 49-year-old female admitted to outside hospital with shortness of breath and dyspnea on exertion. She is found to have a CHF exacerbation and hypertensive urgency with blood pressure 211/104. Cardiology and nephrology consults were placed. Lasix was discontinued due to elevated creatinine and should be restarted once creatinine is less than 3. Patient's baseline creatinine is 2-3 (both values found in records). Fluid restriction was started at 1500 mL per day. Clonidine and hydralazine were both discontinued patient was continued on labetalol and verapamil. She had two iron infusions. Uncertain why patient was taken off of statin but per patient and her PCP advised not to take it. She yanez s have a history of CVA but was only on aspirin. States statin was stopped by CLINICAL NURSING PROFESSOR due to pain in left shoulder which was more likely due to tone. Statin was restarted at outside Hospital. We'll discuss secondary stroke prevention with patient made sure that she and family understand her need to continue with the statin. Patient also has a history of relapsing remitting multiple sclerosis but has not had a flair in 3 years. States she has falls about once a week. Patient is participating in therapy and making reasonable progress. Taking rest breaks as needed. +BM. Denies pain, palpitations, dyspnea, cough, N/V. Ambulating with kavon walker and quad cane. Left shoulder pain somewhat better after therapy. Tone improved slightly. BP variable, will likely add clonidine if no improvement . PRN available. Continue therapy for LUE and monitor for need to start PO meds. All records, vitals, labs and medications were reviewed. No other issues per patient, nursing or therapy. Objective - Exam Narrative Exam: MUSCULOSKELETAL SPECIALTY EXAM CONSTITUTIONAL: Well developed, well nourished, appropriately groomed. RIGHT hand dominant. RESPIRATORY: Clear to auscultation bilaterally, no increased work of breathing CARDIOVASCULAR: Regular Rate/ Rhythm, no swelling, edema or tenderness in BUE or BLE. All ext remities warm. GI: + bowel sounds, soft, NTTP, nondistended. INTEGUMENTARY: Normal, no lesion, rash, masses or bruising noted in extremities. MUSCULOSKELETAL: BUE and BLE normal without defect, crepitus, subluxation, effusion, arthritic changes or TTP. SA EF WE EE FF FA HF KE ADF EHL APF R 03/15 overall L 3/5 3/5 3/5 3/5 3/5 3/5 4/5 4/5 4/5 4/5 4/5 ROM decreased on LUE Tone increased in LUE NEURO L facial droop Sensation intact in all extremities without extinction. No tremor noted in 4 extremities. Naming and repetition intact. Follows 2 step commands. Aphasia not appreciated Dysarthria not appreciated but she does have slowed maris when speaking Dysphagia not appreciated Neglect not appreciated POSTURE and GAIT: Sitting posture good. Balance decreased. Gait with QC observed, slowed. PSYCH: Alert, oriented x3, affect appears euthymic. Insight appears intact. - Constitutional Vitals: Vital Signs - 12hr 06/11/19 06/11/19 06/12/19 22:11 22:18 05:22 Temperature 36.9 C 36.5 C Pulse Rate 70 72 70 Respiratory 20 21 Rate Blood Pressure 173/85 Blood Pressure 120/70 178/79 [Right] O2 Sat by Pulse 98 98 Oximetry 06/12/19 06/12/19 07:12 07:13 Temperature 36.4 C L Pulse Rate 65 63 Respiratory 18 Rate Blood Pressure 155/79 Blood Pressure [Right] O2 Sat by Pulse 100 100 Oximetry - Allied health notes Allied health notes reviewed: nursing, PT, OT FIMS assessment as documented by PT/OT/ST: Grooming Patient cleans teeth/dentures: Yes Patient young/brushes hair: Yes Patient washes, rinses and Yes dries face: Patient washes, rinses and Yes dries hands: Patient shaves: Yes Patient applies make-up: No Patient performs (no make-up/ 02/12 (100%) shaving): Patient performs (w/ make-up/ 02/13 (80%) shaving): Grooming FIM Score 4. Minimal Assistance (Patient = 75% or more. Needs touching.) Toileting Toileting Device Grab Bar Patient able to: Adjust clothes before,Clean self Patient able to perform: 2/3 (67%) Toileting FIM Score 4. Minimal Assistance (Patient = 75% or more. Needs touching.) Social interaction/Memory/Problem solving Social Interaction FIM Score 4. Minimal Assistance (Interacts appropriately 75-90%.) Memory FIM Score 4. Minimal Assistance (Recognizes and remembers 75-90%.) Problem Solving FIM Score 4. Minimal Assistance (Solves routine problems 75-90%.) Transfers Mode of Locomotion: Wheelchair Bed/Chair/Wheelchair Transfers 4. Minimal Assistance (Patient = 75% or more. FIM Score Needs touching.) Toilet Transfers FIM Score 4. Minimal Assistance (Patient = 75% or more. Needs touching.) Patient transferred to: Shower Shower Transfers FIM Score 4. Minimal Assistance (Patient = 75% or more. Needs touching.) Locomotion- Stairs Device used on Stairs Handrail/s Number of Stairs Ascended/ 4 Descended Patient used handrail/support: Yes Stairs FIM Score 2. Maximal Assistance (Patient = 25% or more, 4- 6 stairs.) Locomotion- walk/wheelchair Most Frequent Mode of Wheelchair Locomotion: Ambulation Distance 92 Walking FIM Score 2. Maximal Assistance (Patient = 25% or more. Minimum of 50 ft.) Wheelchair Propulsion Distance 50 Wheelchair FIM Score 2. Maximal Assistance (Patient = 25% or more. Minimum of 50 ft.) Eating Eating FIM Score 4. Minimal Assistance (Patient = 75% or more) Dressing-Upper body Patient retrieves clothing No items: Patient applies/removes UE n/a prosthesis or orthosis: Upper Body Dressing FIM Score 4. Minimal Assistance (Patient = 75% or more. Needs touching.) Dressing-lower body Patient retrieves clothing No items: Patient applies/removes LE n/a prosthesis or orthosis: Lower Body Dressing FIM Score 3. Moderate Assistance (Patient = 50% or more) - Labs CBC & Chem 7: 06/14/19 06:53 06/14/19 06:53 Labs: Laboratory Results - last 72 hr 06/09/19 06/09/19 06/09/19 11:50 16:43 20:37 WBC RBC Hgb Hct MCV MCH MCHC RDW Plt Count Sodium Potassium Chloride Carbon Dioxide Anion Gap BUN Creatinine Estimated GFR BUN/Creatinine Ratio Glucose POC Glucose 98 95 99 Hemoglobin A1c Calcium Iron TIBC Triglycerides Cholesterol LDL Cholesterol Direct HDL Cholesterol Cholesterol/HDL Ratio Vitamin B12 Folate 06/10/19 06/10/19 06/10/19 06:56 06:56 06:56 WBC 3.1 L RBC 3.53 L Hgb 8.8 L Hct 27.7 L MCV 79 MCH 25 L MCHC 32 RDW 17.6 H Plt Count 251 Sodium 141 Potassium 4.3 Chloride 104.3 Carbon Dioxide 21 L Anion Gap 20 BUN 25 H Creatinine 3.3 H Estimated GFR 18 BUN/Creatinine Ratio 8 Glucose 66 POC Glucose Hemoglobin A1c Calcium 9.4 Iron 43 TIBC 272 Triglycerides 82 Cholesterol 175 LDL Cholesterol Direct 86 HDL Cholesterol 77 H Cholesterol/HDL Ratio 2.27 Vitamin B12 545.3 Folate 06/10/19 06/10/19 06/10/19 06:56 06:56 08:09 WBC RBC Hgb Hct MCV MCH MCHC RDW Plt Count Sodium Potassium Chloride Carbon Dioxide Anion Gap BUN Creatinine Estimated GFR BUN/Creatinine Ratio Glucose POC Glucose 69 L Hemoglobin A1c 4.9 Calcium Iron TIBC Triglycerides Cholesterol LDL Cholesterol Direct HDL Cholesterol Cholesterol/HDL Ratio Vitamin B12 Folate 5.58 L 06/10/19 06/10/19 06/10/19 11:58 16:40 21:57 WBC RBC Hgb Hct MCV MCH MCHC RDW Plt Count Sodium Potassium Chloride Carbon Dioxide Anion Gap BUN Creatinine Estimated GFR BUN/Creatinine Ratio Glucose POC Glucose 86 82 70 Hemoglobin A1c Calcium Iron TIBC Triglycerides Cholesterol LDL Cholesterol Direct HDL Cholesterol Cholesterol/HDL Ratio Vitamin B12 Folate 06/11/19 06/11/19 06/11/19 07:06 17:07 21:41 WBC RBC Hgb Hct MCV MCH MCHC RDW Plt Count Sodium 141 Potassium 4.2 Chloride 105.4 Carbon Dioxide 22 Anion Gap 18 BUN 24 H Creatinine 3.1 H Estimated GFR 19 BUN/Creatinine Ratio 8 Glucose 82 POC Glucose 100 104 Hemoglobin A1c Calcium 9.4 Iron TIBC Triglycerides Cholesterol LDL Cholesterol Direct HDL Cholesterol Cholesterol/HDL Ratio Vitamin B12 Folate 06/12/19 06/12/19 06/12/19 07:48 07:48 08:27 WBC 3.4 L RBC 3.95 Hgb 9.9 L Hct 31.1 MCV 79 MCH 25 L MCHC 32 RDW 18.7 H Plt Count 286 Sodium 142 Potassium 4.3 Chloride 106.4 Carbon Dioxide 22 Anion Gap 18 BUN 22 H Creatinine 3.0 H Estimated GFR 20 BUN/Creatinine Ratio 7 Glucose 81 POC Glucose 79 Hemoglobin A1c Calcium 9.4 Iron TIBC Triglycerides Cholesterol LDL Cholesterol Direct HDL Cholesterol Cholesterol/HDL Ratio Vitamin B12 Folate 06/12/19 08:59 WBC RBC Hgb Hct MCV MCH MCHC RDW Plt Count Sodium Potassium Chloride Carbon Dioxide Anion Gap BUN Creatinine Estimated GFR BUN/Creatinine Ratio Glucose POC Glucose 82 Hemoglobin A1c Calcium Iron TIBC Triglycerides Cholesterol LDL Cholesterol Direct HDL Cholesterol Cholesterol/HDL Ratio Vitamin B12 Folate Assessment and Plan CVA with Left nondominant hemiplegia: discussed secondary stroke prevention and prognosis. continue medications and monitor for worsening neurologic condition LUE spasticity: Stretching with OT, would possibly benefit from splinting. If she tolerates it we can trial PO medications. improving somewhat CKD with acute exacerbation: avoid nephrotoxic medications, monitor renal function, nephrology consult HTN: continue medications, adjust for normotension DM 2: continue SSI, monitor GLU Z73.6 ADL dysfunction: OT will work on improving ability to perform ADLs (including assistive devices) to increase independence and decrease caregiver burden and improve functional transfers and mobility training. R26.2 Difficulty walking: PT will work on gait training and proper use of assistive devices and advance as appropriate to use of stairs and outside ambulation on uneven surfaces. R26.81 Unsteadiness on feet: PT will work on improving static and dynamic sitting and standing balance as well as proper use of assistive devices to decrease risk of falls. R26.89 Abnormality of gait: PT will work to improve safety and efficiency of gait through neuromotor training and gait training along with instruction on proper use of assistive devices. M62.81 Muscle weakness: PT & OT will work on strengthening exercises to improve functional strength including mixture of closed and open kinetic chain exercises. R53.81 Debility: PT & OT will work on improving overall functional status to improve participation with ADLs, mobility and social involvement. R53.83 Fatigue: PT & OT will work on improving endurance through aerobic exercises and therapeutic activity while monitoring patients tolerance for activity and vital signs as needed. MS: monitor for any worsening symptoms DVT ppx: heparin Pain: Continue physical modalities in therapy and pain medications as needed to achieve functional pain control. Sleep: Monitor and address as needed. Bowel: Monitor and address as needed. PRN meds available Appetite: Monitor and address as needed. Discharge planning: Pending therapy progress and care plan meeting. Will continue discussion with therapy team, CONSTANZA, patient . Restrictions/ Precautions: Falls WB status: FWB Functional Hx: ADLs: Independent Cognition: Independent Mobility: RW Barriers to Discharge: Decreased mobility and ability to perform self care, bal ance deficits, weakness, spasticity Estimated Length of Stay: 14-18 days Discharge Destination: Home with family
[2019-06-12] MEDS: NORMODYNE PO SCH ×2 (10:57→22:01)
[2019-06-12] MEDS: FEOSOL PO SCH (10:57)
[2019-06-12] MEDS: ECOTRIN PO SCH (10:57)
[2019-06-12] MEDS: CALAN SR PO SCH (10:57)
[2019-06-12] MEDS: FOLVITE PO SCH (10:58)
[2019-06-13] MEDS: HumaLOG SUB-Q SCH ×5 (06:48→22:39)
[2019-06-13] MEDS: HEPARIN SUB-Q SCH ×3 (07:14→22:38)
[2019-06-13] MEDS: APRESOLINE PO SCH ×3 (07:15→22:38)
[2019-06-13 07:21] LABS: Calcium 9.3 mg/dL (8.4-10.2)
[2019-06-13] MEDS: CALAN SR PO SCH (11:11)
[2019-06-13] MEDS: NORMODYNE PO SCH ×2 (11:11→22:39)
[2019-06-13] MEDS: ECOTRIN PO SCH (11:12)
[2019-06-13] MEDS: FOLVITE PO SCH (11:12)
[2019-06-13] MEDS: CATAPRES PO SCH ×2 (11:12→22:40)
[2019-06-13] MEDS: FEOSOL PO SCH (11:12)
[2019-06-14] MEDS: HEPARIN SUB-Q SCH ×4 (06:25→22:42)
[2019-06-14] MEDS: APRESOLINE PO SCH ×3 (06:25→22:40)
[2019-06-14 07:12] LABS: Hematocrit 27.6 % (30.3-42.9); Hemoglobin 9.1 gm/dl (10.1-14.3); Mean Corpuscular HGB Conc 33 % (30-34); Mean Corpuscular Volume 78 fl (79-97); Platelet Count 283 K/mm3 (140-440); Red Blood Count 3.52 M/mm3 (3.65-5.03); Red Cell Distribution Width 19.1 % (13.2-15.2)
[2019-06-14 07:33] LABS: Calcium 9.2 mg/dL (8.4-10.2)
[2019-06-14] MEDS: HumaLOG SUB-Q SCH ×3 (08:00→22:42)
[2019-06-14] MEDS: NORMODYNE PO SCH ×2 (09:48→22:40)
[2019-06-14] MEDS: ECOTRIN PO SCH (09:48)
[2019-06-14] MEDS: CALAN SR PO SCH (09:54)
[2019-06-14] MEDS: FOLVITE PO SCH (09:56)
[2019-06-14] MEDS: CATAPRES PO SCH ×2 (09:56→22:52)
[2019-06-14] MEDS: FEOSOL PO SCH (09:56)
[2019-06-15] MEDS: APRESOLINE PO SCH ×3 (06:08→21:09)
[2019-06-15] MEDS: HEPARIN SUB-Q SCH ×3 (06:08→21:09)
[2019-06-15] MEDS: HumaLOG SUB-Q SCH ×4 (08:05→23:11)
[2019-06-15 08:20] LABS: Calcium 9.2 mg/dL (8.4-10.2)
[2019-06-15] MEDS: FEOSOL PO SCH (08:42)
[2019-06-15] MEDS: ECOTRIN PO SCH (08:42)
[2019-06-15] MEDS: NORMODYNE PO SCH ×2 (08:43→21:10)
[2019-06-15] MEDS: FOLVITE PO SCH (08:43)
[2019-06-15] MEDS: CALAN SR PO SCH (09:07)
[2019-06-15] MEDS: CATAPRES PO SCH ×2 (09:07→21:09)
--- NOTE | 2019-06-15 15:52 | Progress Note ---
Subjective Date of service: 06/15/19 Principal diagnosis: CVA, debility Interval history: 49-year-old female admitted to outside hospital with shortness of breath and dyspnea on exertion. She is found to have a CHF exacerbation and hypertensive urgency with blood pressure 211/104. Cardiology and nephrology consults were placed. Lasix was discontinued due to elevated creatinine and should be restarted once creatinine is less than 3. Patient's baseline creatinine is 2-3 (both values found in records). Fluid restriction was started at 1500 mL per day. Clonidine and hydralazine were both discontinued patient was continued on labetalol and verapamil. She had two iron infusions. Uncertain why patient was taken off of statin but per patient and her PCP advised not to take it. She yanez s have a history of CVA but was only on aspirin. States statin was stopped by [employer] due to pain in left shoulder which was more likely due to tone. Statin was restarted at outside Hospital. We'll discuss secondary stroke prevention with patient made sure that she and family understand her need to continue with the statin. Patient also has a history of relapsing remitting multiple sclerosis but has not had a flair in 3 years. States she has falls about once a week. Patient is participating in therapy and making reasonable progress. Taking rest breaks as needed. +BM. Denies pain, palpitations, dyspnea, cough, N/V. Ambulating with kavon walker and quad cane. Left shoulder pain somewhat better after therapy. Tone improved slightly. BP better controlled on clonidine 0.2 but she is having s/e. States she was having worse issues at home on .3mg dose. Will reduce to 0.1mg and monitor. Will likely consult renal to look into CKD and offer any assistance from their perspective of HTN. She also needs to follow up with nephrology at d/c and states she has not seen one in past. Continue therapy for LUE and monitor for need to start PO meds. All records, vitals, labs and medications were reviewed. No other issues per patient, nursing or therapy. Objective - Exam Narrative Exam: MUSCULOSKELETAL SPECIALTY EXAM CONSTITUTIONAL: Well developed, well nourished, appropriately groomed. RIGHT hand dominant. RESPIRATORY: Clear to auscultation bilaterally, no increased work of breathing CARDIOVASCULAR: Regular Rate/ Rhythm, no swelling, edema or tenderness in BUE or BLE. All extremities warm. GI: + bowel sounds, soft, NTTP, nondistended. INTEGUMENTARY: Normal, no lesion, rash, masses or bruising noted in extremities. MUSCULOSKELETAL: BUE and BLE normal without defect, crepitus, subluxation, effusion, arthritic changes or TTP. SA EF WE EE FF FA HF KE ADF EHL APF R 5/5 overall L 4-/5 4-/5 4-/5 4-/5 4-/5 4-/5 4/5 4/5 4/5 4/5 4/5 ROM decreased on LUE Tone increased in LUE NEURO L facial droop Sensation intact in all extremities without extinction. No tremor noted in 4 extremities. Naming and repetition intact. Follows 2 step commands. Aphasia not appreciated Dysarthria not appreciated but she does have slowed maris when speaking Dysphagia not appreciated Neglect not appreciated POSTURE and GAIT: Sitting posture good. Balance decreased. Gait with QC observed, slowed. PSYCH: Alert, oriented x3, affect appears euthymic. Insight appears intact. - Constitutional Vitals: Vital Signs - 12hr 06/15/19 11:30 Temperature 36.6 C Pulse Rate 65 Respiratory 65 H Rate Blood Pressure 183/88 [Right] O2 Sat by Pulse 99 Oximetry - Allied health notes Allied health notes reviewed: nursing, PT, OT FIMS assessment as documented by PT/OT/ST: Grooming Patient cleans teeth/dentures: Yes Patient young/brushes hair: No Patient washes, rinses and Yes dries face: Patient washes, rinses and Yes dries hands: Patient shaves: Yes Patient applies make-up: No Patient performs (no make-up/ 3/4 (75%) shaving): Patient performs (w/ make-up/ 4/5 (80%) shaving): Grooming FIM Score 5. Supervision ([place] applies toothpaste or opens containers.) Toileting Toileting Device Grab Bar Patient able to: Adjust clothes before,Clean self Patient able to perform: 2/3 (67%) Toileting FIM Score 4. Minimal Assistance (Patient = 75% or more. Needs touching.) Social interaction/Memory/Problem solving Social Interaction FIM Score 5. Supervision (Needs supv. <10%. Needs encouragement to participate.) Memory FIM Score 5. Supervision (Needs cueing <10%, stressful/ unfamiliar situations.) Problem Solving FIM Score 5. Supervision (Needs cueing <10% to solve routine problems.) Transfers Mode of Locomotion: Wheelchair Bed/Chair/Wheelchair Transfers 5. Supervision (Needs supv. or set-up for FIM Score sliding board, foot rests.) Toilet Transfers FIM Score 4. Minimal Assistance (Patient = 75% or more. Needs touching.) Patient transferred to: Shower Shower Transfers FIM Score 4. Minimal Assistance (Patient = 75% or more. Needs touching.) Locomotion- Stairs Device used on Stairs Handrail/s Number of Stairs Ascended/ 4 Descended Patient used handrail/support: Yes Stairs FIM Score 2. Maximal Assistance (Patient = 25% or more, 4- 6 stairs.) Locomotion- walk/wheelchair Most Frequent Mode of Wheelchair Locomotion: Ambulation Distance 50 Walking FIM Score 4. Minimal Assistance (Patient = 75% or more. Minimum of 150 ft.) Wheelchair Propulsion Distance 200 Wheelchair FIM Score 5. Supervision (Minimum 150 ft. supv./cues or 50 ft. independently.) Eating Eating FIM Score 5. Supervision/Set-Up (Needs help w/ containers, cutting meat, etc.) Dressing-Upper body Patient retrieves clothing Yes items: Patient applies/removes UE n/a prosthesis or orthosis: Upper Body Dressing FIM Score 5. Supv./Set-Up ([place] sets out clothes or applies pros./orth.) Dressing-lower body Patient retrieves clothing Yes items: Patient applies/removes LE n/a prosthesis or orthosis: Lower Body Dressing FIM Score 5. Supv./Set-Up ([place] sets out clothes or applies pros./orth.) - Labs CBC & Chem 7: 06/14/19 06:53 06/16/19 07:41 Labs: Laboratory Results - last 72 hr 06/12/19 06/12/19 06/13/19 16:57 21:22 06:43 WBC RBC Hgb Hct MCV MCH MCHC RDW Plt Count Sodium 141 Potassium 4.3 Chloride 105.4 Carbon Dioxide 22 Anion Gap 18 BUN 23 H Creatinine 3.2 H Estimated GFR 19 BUN/Creatinine Ratio 7 Glucose 79 POC Glucose 92 90 Calcium 9.3 06/13/19 06/13/19 06/13/19 07:34 11:35 16:48 WBC RBC Hgb Hct MCV MCH MCHC RDW Plt Count Sodium Potassium Chloride Carbon Dioxide Anion Gap BUN Creatinine Estimated GFR BUN/Creatinine Ratio Glucose POC Glucose 72 131 H 78 Calcium 06/13/19 06/14/19 06/14/19 21:11 06:53 06:53 WBC 3.1 L RBC 3.52 L Hgb 9.1 L Hct 27.6 L MCV 78 L MCH 26 L MCHC 33 RDW 19.1 H Plt Count 283 Sodium 139 Potassium 4.6 Chloride 103.2 Carbon Dioxide 23 Anion Gap 17 BUN 24 H Creatinine 3.1 H Estimated GFR 19 BUN/Creatinine Ratio 8 Glucose 79 POC Glucose 110 H Calcium 9.2 06/14/19 06/14/19 06/14/19 07:30 11:39 16:37 WBC RBC Hgb Hct MCV MCH MCHC RDW Plt Count Sodium Potassium Chloride Carbon Dioxide Anion Gap BUN Creatinine Estimated GFR BUN/Creatinine Ratio Glucose POC Glucose 67 L 86 99 Calcium 06/14/19 06/15/19 06/15/19 21:05 06:35 08:05 WBC RBC Hgb Hct MCV MCH MCHC RDW Plt Count Sodium 143 Potassium 4.4 Chloride 107.5 H Carbon Dioxide 23 Anion Gap 17 BUN 26 H Creatinine 3.3 H Estimated GFR 18 BUN/Creatinine Ratio 8 Glucose 78 POC Glucose 98 76 Calcium 9.2 06/15/19 13:26 WBC RBC Hgb Hct MCV MCH MCHC RDW Plt Count Sodium Potassium Chloride Carbon Dioxide Anion Gap BUN Creatinine Estimated GFR BUN/Creatinine Ratio Glucose POC Glucose 105 Calcium Assessment and Plan CVA with Left nondominant hemiplegia: discussed secondary stroke prevention and prognosis. continue medications and monitor for worsening neurologic condition LUE spasticity: Stretching with OT, would possibly benefit from splinting. If she tolerates it we can trial PO medications. improving somewhat CKD with acute exacerbation: avoid nephrotoxic medications, monitor renal function, nephrology consult HTN: continue medications, adjust for normotension DM 2: continue SSI, monitor GLU Z73.6 ADL dysfunction: OT will work on improving ability to perform ADLs (including assistive devices) to increase independence and decrease caregiver burden and improve functional transfers and mobility training. R26.2 Difficulty walking: PT will work on gait training and proper use of assistive devices and advance as appropriate to use of stairs and outside ambulation on uneven surfaces. R26.81 Unsteadiness on feet: PT will work on improving static and dynamic sitting and standing balance as well as proper use of assistive devices to decrease risk of falls. R26.89 Abnormality of gait: PT will work to improve safety and efficiency of gait through neuromotor training and gait training along with instruction on proper use of assistive devices. M62.81 Muscle weakness: PT & OT will work on strengthening exercises to improve functional strength including mixture of closed and open kinetic chain e xercises. R53.81 Debility: PT & OT will work on improving overall functional status to improve participation with ADLs, mobility and social involvement. R53.83 Fatigue: PT & OT will work on improving endurance through aerobic exercises and therapeutic activity while monitoring patients tolerance for activity and vital signs as needed. MS: monitor for any worsening symptoms DVT ppx: heparin Pain: Continue physical modalities in therapy and pain medications as needed to achieve functional pain control. Sleep: Monitor and address as needed. Bowel: Monitor and address as needed. PRN meds available Appetite: Monitor and address as needed. Discharge planning: Pending therapy progress and care plan meeting. Will continue discussion with therapy team, SW, patient . Restrictions/ Precautions: Falls WB status: FWB Functional Hx: ADLs: Independent Cognition: Independent Mobility: RW Barriers to Discharge: Decreased mobility and ability to perform self care, balance deficits, weakness, spasticity Estimated Length of Stay: 14-18 days Discharge Destination: Home with family
[2019-06-16] MEDS: HEPARIN SUB-Q SCH ×3 (05:08→21:57)
[2019-06-16] MEDS: APRESOLINE PO SCH ×3 (05:08→21:57)
[2019-06-16] MEDS: HumaLOG SUB-Q SCH ×4 (08:00→22:35)
[2019-06-16 08:29] LABS: Calcium 9.2 mg/dL (8.4-10.2)
[2019-06-16] MEDS: ECOTRIN PO SCH (09:35)
[2019-06-16] MEDS: FEOSOL PO SCH (09:35)
[2019-06-16] MEDS: FOLVITE PO SCH (09:35)
[2019-06-16] MEDS: CATAPRES PO SCH ×2 (09:36→21:56)
[2019-06-16] MEDS: NORMODYNE PO SCH ×2 (09:36→21:57)
[2019-06-16] MEDS: CALAN SR PO SCH (09:36)
--- NOTE | 2019-06-16 11:33 | Progress Note ---
Subjective Date of service: 06/16/19 Principal diagnosis: CVA, debility Interval history: 49-year-old female admitted to outside hospital with shortness of breath and dyspnea on exertion. She is found to have a CHF exacerbation and hypertensive urgency with blood pressure 211/104. Cardiology and nephrology consults were placed. Lasix was discontinued due to elevated creatinine and should be restarted once creatinine is less than 3. Patient's baseline creatinine is 2-3 (both values found in records). Fluid restriction was started at 1500 mL per day. Clonidine and hydralazine were both discontinued patient was continued on labetalol and verapamil. She had two iron infusions. Uncertain why patient was taken off of statin but per patient and her PCP advised not to take it. She yanez s have a history of CVA but was only on aspirin. States statin was stopped by [employer] due to pain in left shoulder which was more likely due to tone. Statin was restarted at outside Hospital. We'll discuss secondary stroke prevention with patient made sure that she and family understand her need to continue with the statin. Patient also has a history of relapsing remitting multiple sclerosis but has not had a flair in 3 years. States she has falls about once a week. Patient is participating in therapy and making reasonable progress. Taking rest breaks as needed. +BM. Denies pain, palpitations, dyspnea, cough, N/V. Ambulating with kavon walker and quad cane. Left shoulder pain somewhat better after therapy. Tone improved slightly. BP better today, looking to adjust meds for further control. Appreciate nephrology assistance, may restart lasix. Continue therapy for LUE and monitor for need to start PO meds. All records, vitals, labs and medications were reviewed. No other issues per patient, nursing or therapy. Objective - Exam Narrative Exam: MUSCULOSKELETAL SPECIALTY EXAM CONSTITUTIONAL: Well developed, well nourished, appropriately groomed. RIGHT hand dominant. RESPIRATORY: Clear to auscultation bilaterally, no increased work of breathing CARDIOVASCULAR: Regular Rate/ Rhythm, no swelling, edema or tenderness in BUE or BLE. All extremities warm. GI: + bowel sounds, soft, NTTP, nondistended. INTEGUMENTARY: Normal, no lesion, rash, masses or bruising noted in extremities. MUSCULOSKELETAL: BUE and BLE normal without defect, crepitus, subluxation, effusion, arthritic changes or TTP. SA EF WE EE FF FA HF KE ADF EHL APF R 5/5 overall L 4-/5 4-/5 4-/5 4-/5 4-/5 4-/5 4/5 4/5 4/5 4/5 4/5 ROM decreased on LUE Tone increased in LUE NEURO L facial droop Sensation intact in all extremities without extinction. No tremor noted in 4 extremities. Naming and repetition intact. Follows 2 step commands. Aphasia not appreciated Dysarthria not appreciated but she does have slowed maris when speaking Dysphagia not appreciated Neglect not appreciated POSTURE and GAIT: Sitting posture good. Balance decreased. Gait with QC slowed. PSYCH: Alert, oriented x3, affect appears euthymic. Insight appears intact. - Constitutional Vitals: Vital Signs - 12hr 06/16/19 06/16/19 04:47 07:32 Temperature 36.4 C 36.7 C Pulse Rate 68 70 Respiratory 17 18 Rate Blood Pressure 163/65 160/79 O2 Sat by Pulse 100 99 Oximetry - Allied health notes Allied health notes reviewed: nursing, PT, OT FIMS assessment as documented by PT/OT/ST: Grooming Patient cleans teeth/dentures: Yes Patient young/brushes hair: No Patient washes, rinses and Yes dries face: Patient washes, rinses and Yes dries hands: Patient shaves: Yes Patient applies make-up: No Patient performs (no make-up/ 3/4 (75%) shaving): Patient performs (w/ make-up/ 4/5 (80%) shaving): Grooming FIM Score 5. Supervision ([place] applies toothpaste or opens containers.) Toileting Toileting Device Grab Bar Patient able to: Adjust clothes before,Clean self Patient able to perform: 2/3 (67%) Toileting FIM Score 4. Minimal Assistance (Patient = 75% or more. Needs touching.) Social interaction/Memory/Problem solving Social Interaction FIM Score 5. Supervision (Needs supv. <10%. Needs encouragement to participate.) Memory FIM Score 5. Supervision (Needs cueing <10%, stressful/ unfamiliar situations.) Problem Solving FIM Score 5. Supervision (Needs cueing <10% to solve routine problems.) Transfers Mode of Locomotion: Wheelchair Bed/Chair/Wheelchair Transfers 5. Supervision (Needs supv. or set-up for FIM Score sliding board, foot rests.) Toilet Transfers FIM Score 4. Minimal Assistance (Patient = 75% or more. Needs touching.) Patient transferred to: Shower Shower Transfers FIM Score 4. Minimal Assistance (Patient = 75% or more. Needs touching.) Locomotion- Stairs Device used on Stairs Handrail/s Number of Stairs Ascended/ 4 Descended Patient used handrail/support: Yes Stairs FIM Score 2. Maximal Assistance (Patient = 25% or more, 4- 6 stairs.) Locomotion- walk/wheelchair Most Frequent Mode of Wheelchair Locomotion: Ambulation Distance 50 Walking FIM Score 4. Minimal Assistance (Patient = 75% or more. Minimum of 150 ft.) Wheelchair Propulsion Distance 200 Wheelchair FIM Score 5. Supervision (Minimum 150 ft. supv./cues or 50 ft. independently.) Eating Eating FIM Score 5. Supervision/Set-Up (Needs help w/ containers, cutting meat, etc.) Dressing-Upper body Patient retrieves clothing Yes items: Patient applies/removes UE n/a prosthesis or orthosis: Upper Body Dressing FIM Score 5. Supv./Set-Up ([place] sets out clothes or applies pros./orth.) Dressing-lower body Patient retrieves clothing Yes items: Patient applies/removes LE n/a prosthesis or orthosis: Lower Body Dressing FIM Score 5. Supv./Set-Up ([place] sets out clothes or applies pros./orth.) - Labs CBC & Chem 7: 06/14/19 06:53 06/17/19 06:02 Labs: Laboratory Results - last 72 hr 06/13/19 06/13/19 06/13/19 11:35 16:48 21:11 WBC RBC Hgb Hct MCV MCH MCHC RDW Plt Count Sodium Potassium Chloride Carbon Dioxide Anion Gap BUN Creatinine Estimated GFR BUN/Creatinine Ratio Glucose POC Glucose 131 H 78 110 H Calcium 06/14/19 06/14/19 06/14/19 06:53 06:53 07:30 WBC 3.1 L RBC 3.52 L Hgb 9.1 L Hct 27.6 L MCV 78 L MCH 26 L MCHC 33 RDW 19.1 H Plt Count 283 Sodium 139 Potassium 4.6 Chloride 103.2 Carbon Dioxide 23 Anion Gap 17 BUN 24 H Creatinine 3.1 H Estimated GFR 19 BUN/Creatinine Ratio 8 Glucose 79 POC Glucose 67 L Calcium 9.2 06/14/19 06/14/19 06/14/19 11:39 16:37 21:05 WBC RBC Hgb Hct MCV MCH MCHC RDW Plt Count Sodium Potassium Chloride Carbon Dioxide Anion Gap BUN Creatinine Estimated GFR BUN/Creatinine Ratio Glucose POC Glucose 86 99 98 Calcium 06/15/19 06/15/19 06/15/19 06:35 08:05 13:26 WBC RBC Hgb Hct MCV MCH MCHC RDW Plt Count Sodium 143 Potassium 4.4 Chloride 107.5 H Carbon Dioxide 23 Anion Gap 17 BUN 26 H Creatinine 3.3 H Estimated GFR 18 BUN/Creatinine Ratio 8 Glucose 78 POC Glucose 76 105 Calcium 9.2 06/15/19 06/15/19 06/16/19 15:59 21:50 07:39 WBC RBC Hgb Hct MCV MCH MCHC RDW Plt Count Sodium Potassium Chloride Carbon Dioxide Anion Gap BUN Creatinine Estimated GFR BUN/Creatinine Ratio Glucose POC Glucose 121 H 274 H 78 Calcium 06/16/19 07:41 WBC RBC Hgb Hct MCV MCH MCHC RDW Plt Count Sodium 141 Potassium 4.4 Chloride 105.7 Carbon Dioxide 22 Anion Gap 18 BUN 26 H Creatinine 3.2 H Estimated GFR 19 BUN/Creatinine Ratio 8 Glucose 78 POC Glucose Calcium 9.2 Assessment and Plan CVA with Left nondominant hemiplegia: discussed secondary stroke prevention and prognosis. continue medications and monitor for worsening neurologic condition LUE spasticity: Stretching with OT. If she tolerates it we can trial PO medications. improving somewhat, tolerating brace CKD with acute exacerbation: avoid nephrotoxic medications, monitor renal function, nephrology consult HTN: continue medications, adjust for normotension DM 2: continue SSI, monitor GLU Z73.6 ADL dysfunction: OT will work on improving ability to perform ADLs (including assistive devices) to increase independence and decrease caregiver burden and improve functional transfers and mobility training. R26.2 Difficulty walking: PT will work on gait training and proper use of assistive devices and advance as appropriate to use of stairs and outside ambulation on uneven surfaces. R26.81 Unsteadiness on feet: PT will work on improving static and dynamic sitting and standing balance as well as proper use of assistive devices to decrease risk of falls. R26.89 Abnormality of gait: PT will work to improve safety and efficiency of gait through neuromotor training and gait training along with instruction on proper use of assistive devices. M62.81 Muscle weakness: PT & OT will work on strengthening exercises to improve functional strength including mixture of closed and open kinetic chain exercises. R53.81 Debility: PT & OT will work on improving overall functional status to improve participation with ADLs, mobility and social involvement. R53.83 Fatigue: PT & OT will work on improving endurance through aerobic exercises and therapeutic activity while monitoring patients tolerance for activity and vital signs as needed. MS: monitor for any worsening symptoms DVT ppx: heparin Pain: Continue physical modalities in therapy and pain medications as needed to achieve functional pain control. Sleep: Monitor and address as needed. Bowel: Monitor and address as needed. PRN meds available Appetite: Monitor and address as needed. Discharge planning: Pending therapy progress and care plan meeting. Will cont inue discussion with therapy team, SW, patient . Restrictions/ Precautions: Falls WB status: FWB Functional Hx: ADLs: Independent Cognition: Independent Mobility: RW Barriers to Discharge: Decreased mobility and ability to perform self care, balance deficits, weakness, spasticity Estimated Length of Stay: 14-18 days Discharge Destination: Home with family
--- NOTE | 2019-06-16 21:18 | Consultation ---
History of Present Illness - Reason for Consult Consult date: 06/16/19 acute renal failure, chronic renal failure - History of Present Illness 49 y/o AAF with PMHx of CKD III in the setting of DM, HTN, CHF, with h/o of CVA and residual right sided weakness, presented to inpatient rehab post admission for acute on chronic CHF exacerbation at an outside hospital. Patient was seen by a nephrology group at [facility] during this admission, for CHENCHO on CKD secondary to cardiorenal syndrome/heart failure. Patient was appropriately/aggressively diuresed, but secondary to worsening renal function her diuretic regimen was discontinued. Nephrology is consulted here for further management. Past History Past Medical History: anemia, diabetes, heart failure, hypertension, stroke, other (CKD, Relapsing/remitting MS, [place] palsy) Past Surgical History: cholecystectomy Social history: lives with family (2 level home, with sister. Father assists. ), full code, other (RW). denies: smoking (former), alcohol abuse, prescription drug abuse, IV drug use Family history: diabetes, hypertension, stroke Medications and Allergies Allergies Allergy/AdvReac Type Severity Reaction Status Date / Time amlodipine besylate Allergy Vomiting Verified 01/21/14 20:31 [From Norvasc] hydromorphone HCl Allergy Vomiting Verified 01/21/14 20:31 [From Dilaudid] lisinopril Allergy Unknown Verified 01/21/14 20:31 Home Medications Medication Instructions Recorded Confirmed Last Taken Type Hydralazine HCl [Apresoline TAB] 50 mg PO TID 06/09/17 06/09/19 Unknown History Docusate Sodium [Colace CAP] 100 mg PO BID #60 capsule 06/12/17 06/09/19 Unknown Rx Aspirin [Aspirin BABY CHEW TAB] 81 mg PO QDAY #30 tab.chew 01/17/18 06/09/19 06/08/19 10:00 Rx AtorvaSTATin [Lipitor] 20 mg PO QHS #30 tablet 01/17/18 06/09/19 Unknown Rx Ferrous Sulfate [Feosol 325 MG tab] 325 mg PO BID #60 tablet 01/17/18 06/09/19 06/08/19 10:00 Rx Insulin Glargine [Lantus VIAL] 7 units SQ QHS 90 Days #90 units 01/17/18 06/09/19 Unknown Rx Labetalol [Labetalol 200mg TAB] 300 mg PO BID #60 tablet 01/17/18 06/09/19 06/08/19 10:00 Rx NIFEdipine XL [Procardia Xl] 60 mg PO QDAY #60 tablet 01/17/18 06/09/19 Unknown Rx hydrALAZINE [Apresoline TAB] 50 mg PO TID #90 tablet 01/17/18 06/09/19 Unknown R x Active Meds: Active Medications Acetaminophen (Tylenol) 650 mg PO Q4H PRN PRN Reason: Pain MILD(1-3)/Fever >100.5/GALLARDO Aspirin (Ecotrin) 325 mg PO QDAY [facility] Last Admin: 06/16/19 09:35 Dose: 325 mg Documented by: Atorvastatin Calcium (Lipitor) 40 mg PO QHS [facility] Last Admin: 06/15/19 21:08 Dose: 40 mg Documented by: Bisacodyl (Dulcolax) 10 mg [place] QDAY PRN PRN Reason: Constipation unrelieved by MOM Clonidine HCl (Catapres) 0.1 mg PO Q12HR [facility] Last Admin: 06/16/19 09:36 Dose: 0.1 mg Documented by: Dextrose (D50w (25gm) Syringe) 50 ml IV PRN PRN PRN Reason: Hypoglycemia Ferrous Sulfate (Feosol) 325 mg PO QDAY [facility] Last Admin: 06/16/19 09:35 Dose: 325 mg Documented by: Folic Acid (Folvite) 1 mg PO QDAY [facility] Last Admin: 06/16/19 09:35 Dose: 1 mg Documented by: Heparin Sodium (Porcine) (Heparin) 5,000 unit SUB-Q Q8HR [facility] Last Admin: 06/16/19 15:45 Dose: 5,000 unit Documented by: Hydralazine HCl (Apresoline) 100 mg PO Q8HR [facility] Last Admin: 06/16/19 15:45 Dose: 100 mg Documented by: Insulin Human Lispro (Humalog) 0 unit SUB-Q [facility]; Protocol Last Admin: 06/16/19 16:30 Dose: Not Given Documented by: Labetalol HCl (Normodyne) 200 mg PO BID [facility] Last Admin: 06/16/19 09:36 Dose: 200 mg Documented by: Ondansetron HCl (Zofran Odt) 4 mg PO Q6H PRN PRN Reason: Nausea And Vomiting Last Admin: 06/09/19 12:12 Dose: 4 mg Documented by: Senna (Senokot) 8.6 mg PO Q12H PRN PRN Reason: Laxative Effect Verapamil HCl (Calan Sr) 240 mg PO DAILY [facility] Last Admin: 06/16/19 09:36 Dose: 240 mg Documented by: Review of Systems All systems: negative Constitutional: fatigue, weakness Cardiovascular: orthopnea, shortness of breath, dyspnea on exertion Exam - Vital Signs Vital signs: Vital Signs Pulse BP 100 H 173/83 06/08/19 23:09 06/08/19 23:09 - General Appearance General appearance: well-nourished, appears stated age EENT: ATNC, PERRL Neck: Present: neck supple, trachea midline Respiratory: Clear to Ascultation, Normal Exam Heart: regular, S1S2 Gastrointestinal: Present: normal, normoactive bowel sounds Integumentary: no rash, warm and dry Neurologic: facial droop, other (residual left sided weakness ) Musculoskeletal: Present: other (-edema ) Psychiatric: mood/affect appropriate, cooperative Results - Lab Results 06/14/19 06:53 06/16/19 07:41 Most recent lab results Calcium 9.2 mg/dL (8.4-10.2) 06/16/19 07:41 Assessment and Plan - Patient Problems (1) Acute kidney injury superimposed on chronic kidney disease Current Visit: Yes Status: Acute Plan to address problem: Continue current management. Overall renal function has been stable over the past 3-4 days since transfer to the inpatient rehab unit. Avoid nephrotoxins, maintain MAP >65mmHg. Will obtain UA, urine electrolytes. Discussed with patient that based on her h/o CKD and extent of CHENCHO on this most recent admission, that she should be followed by nephrology as an outpatient. (2) Hypertensive chronic kidney disease with stage 1 through stage 4 chronic kidney disease, or unspecified chronic kidney disease Current Visit: Yes Status: Chronic Plan to address problem: Continue on current regimen. Will monitor closely. (3) Type 2 diabetes mellitus with diabetic chronic kidney disease Current Visit: Yes Status: Chronic Plan to address problem: DM management per primary team. (4) Systolic CHF, acute on chronic Current Visit: No Status: Chronic Plan to address problem: Volume status is nearly euvolemic at present time. Counseled patient on the importance of low sodium diet and appropriate fluid restrictions. If renal function continues to be stable, will recommend that patient restart on low dose lasix, at 20 mg PO BID to avoid any recurrent issues with fluid overload.
[2019-06-17] MEDS: APRESOLINE PO SCH ×3 (05:26→21:18)
[2019-06-17] MEDS: HEPARIN SUB-Q SCH ×3 (05:26→21:18)
[2019-06-17] MEDS: CALAN SR PO SCH ×2 (08:43→09:00)
[2019-06-17] MEDS: CATAPRES PO SCH ×3 (08:43→21:18)
[2019-06-17] MEDS: ECOTRIN PO SCH (08:44)
[2019-06-17] MEDS: FEOSOL PO SCH (08:44)
[2019-06-17] MEDS: HumaLOG SUB-Q SCH ×4 (08:44→21:56)
[2019-06-17] MEDS: NORMODYNE PO SCH ×2 (08:44→21:18)
[2019-06-17] MEDS: FOLVITE PO SCH (08:44)
--- NOTE | 2019-06-17 16:43 | Progress Note ---
Subjective Date of service: 06/17/19 Principal diagnosis: CVA, debility Interval history: 49-year-old female admitted to outside hospital with shortness of breath and dyspnea on exertion. She is found to have a CHF exacerbation and hypertensive urgency with blood pressure 211/104. Cardiology and nephrology consults were placed. Lasix was discontinued due to elevated creatinine and should be restarted once creatinine is less than 3. Patient's baseline creatinine is 2-3 (both values found in records). Fluid restriction was started at 1500 mL per day. Clonidine and hydralazine were both discontinued patient was continued on labetalol and verapamil. She had two iron infusions. Uncertain why patient was taken off of statin but per patient and her PCP advised not to take it. She yanez s have a history of CVA but was only on aspirin. States statin was stopped by [employer] due to pain in left shoulder which was more likely due to tone. Statin was restarted at outside Hospital. We'll discuss secondary stroke prevention with patient made sure that she and family understand her need to continue with the statin. Patient also has a history of relapsing remitting multiple sclerosis but has not had a flair in 3 years. States she has falls about once a week. Patient is participating in therapy and making reasonable progress. Taking rest breaks as needed. +BM. Denies pain, palpitations, dyspnea, cough, N/V. Ambulating with kavon walker and quad cane. Left shoulder pain somewhat better after therapy. Tone improved slightly. BP better today, looking to adjust meds for further control. Appreciate nephrology assistance, may restart lasix. Continue therapy for LUE and monitor for need to start PO meds. All records, vitals, labs and medications were reviewed. No other issues per patient, nursing or therapy. Objective - Exam Narrative Exam: MUSCULOSKELETAL SPECIALTY EXAM CONSTITUTIONAL: Well developed, well nourished, appropriately groomed. RIGHT hand dominant. RESPIRATORY: Clear to auscultation bilaterally, no increased work of breathing CARDIOVASCULAR: Regular Rate/ Rhythm, no swelling, edema or tenderness in BUE or BLE. All extremities warm. GI: + bowel sounds, soft, NTTP, nondistended. INTEGUMENTARY: Normal, no lesion, rash, masses or bruising noted in extremities. MUSCULOSKELETAL: BUE and BLE normal without defect, crepitus, subluxation, effusion, arthritic changes or TTP. SA EF WE EE FF FA HF KE ADF EHL APF R 5/5 overall L 4-/5 4-/5 4-/5 4-/5 4-/5 4-/5 4/5 4/5 4/5 4/5 4/5 ROM decreased on LUE Tone increased in LUE NEURO L facial droop Sensation intact in all extremities without extinction. No tremor noted in 4 extremities. Naming and repetition intact. Follows 2 step commands. Aphasia not appreciated Dysarthria not appreciated but she does have slowed maris when speaking Dysphagia not appreciated Neglect not appreciated POSTURE and GAIT: Sitting posture good. Balance decreased. Gait with QC slowed. PSYCH: Alert, oriented x3, affect appears euthymic. Insight appears intact. - Constitutional Vitals: Vital Signs - 12hr 06/17/19 06/17/19 06/17/19 05:19 05:37 07:52 Temperature 36.6 C 36.6 C Pulse Rate 60 62 69 Respiratory 17 18 Rate Blood Pressure 157/79 Blood Pressure 184/83 [Right] O2 Sat by Pulse 99 99 98 Oximetry 06/17/19 06/17/19 06/17/19 08:43 12:44 12:45 Temperature 36.4 C Pulse Rate 69 58 L 55 L Respiratory 18 Rate Blood Pressure 157/79 114/54 Blood Pressure [Right] O2 Sat by Pulse 100 100 Oximetry - Allied health notes Allied health notes reviewed: nursing, PT, OT FIMS assessment as documented by PT/OT/ST: Grooming Patient cleans teeth/dentures: Yes Patient young/brushes hair: No Patient washes, rinses and Yes dries face: Patient washes, rinses and Yes dries hands: Patient shaves: Yes Patient applies make-up: No Patient performs (no make-up/ 3/4 (75%) shaving): Patient performs (w/ make-up/ 4/5 (80%) shaving): Grooming FIM Score 5. Supervision (Repton applies toothpaste or opens containers.) Toileting Toileting Device Grab Bar Patient able to: Adjust clothes before,Clean self Patient able to perform: 2/3 (67%) Toileting FIM Score 4. Minimal Assistance (Patient = 75% or more. Needs touching.) Social interaction/Memory/Problem solving Social Interaction FIM Score 5. Supervision (Needs supv. <10%. Needs encouragement to participate.) Memory FIM Score 5. Supervision (Needs cueing <10%, stressful/ unfamiliar situations.) Problem Solving FIM Score 4. Minimal Assistance (Solves routine problems 75-90%.) Transfers Mode of Locomotion: Wheelchair Bed/Chair/Wheelchair Transfers 5. Supervision (Needs supv. or set-up for FIM Score sliding board, foot rests.) Toilet Transfers FIM Score 4. Minimal Assistance (Patient = 75% or more. Needs touching.) Patient transferred to: Shower Shower Transfers FIM Score 4. Minimal Assistance (Patient = 75% or more. Needs touching.) Locomotion- Stairs Device used on Stairs Handrail/s Number of Stairs Ascended/ 8 Descended Patient used handrail/support: Yes Stairs FIM Score 2. Maximal Assistance (Patient = 25% or more, 4- 6 stairs.) Locomotion- walk/wheelchair Most Frequent Mode of Wheelchair Locomotion: Ambulation Distance 94 Walking FIM Score 2. Maximal Assistance (Patient = 25% or more. Minimum of 50 ft.) Wheelchair Propulsion Distance 200 Wheelchair FIM Score 5. Supervision (Minimum 150 ft. supv./cues or 50 ft. independently.) Eating Eating FIM Score 5. Supervision/Set-Up (Needs help w/ containers, cutting meat, etc.) Dressing-Upper body Patient retrieves clothing Yes items: Patient applies/removes UE n/a prosthesis or orthosis: Upper Body Dressing FIM Score 5. Supv./Set-Up (Repton sets out clothes or applies pros./orth.) Dressing-lower body Patient retrieves clothing Yes items: Patient applies/removes LE n/a prosthesis or orthosis: Lower Body Dressing FIM Score 5. Supv./Set-Up (Repton sets out clothes or applies pros./orth.) - Labs CBC & Chem 7: 06/14/19 06:53 06/18/19 Unknown Labs: Laboratory Results - last 72 hr 06/14/19 06/15/19 06/15/19 21:05 06:35 08:05 Sodium 143 Potassium 4.4 Chloride 107.5 H Carbon Dioxide 23 Anion Gap 17 BUN 26 H Creatinine 3.3 H Estimated GFR 18 BUN/Creatinine Ratio 8 Glucose 78 POC Glucose 98 76 Calcium 9.2 06/15/19 06/15/19 06/15/19 13:26 15:59 21:50 Sodium Potassium Chloride Carbon Dioxide Anion Gap BUN Creatinine Estimated GFR BUN/Creatinine Ratio Glucose POC Glucose 105 121 H 274 H Calcium 06/16/19 06/16/19 06/16/19 07:39 07:41 15:38 Sodium 141 Potassium 4.4 Chloride 105.7 Carbon Dioxide 22 Anion Gap 18 BUN 26 H Creatinine 3.2 H Estimated GFR 19 BUN/Creatinine Ratio 8 Glucose 78 POC Glucose 78 108 H Calcium 9.2 06/16/19 06/17/19 06/17/19 22:41 06:02 08:40 Sodium 141 Potassium 4.7 Chloride 106.1 Carbon Dioxide 24 Anion Gap 16 BUN 30 H Creatinine 3.3 H Estimated GFR 18 BUN/Creatinine Ratio 9 Glucose 81 POC Glucose 86 80 Calcium 9.0 Assessment and Plan CVA with Left nondominant hemiplegia: discussed secondary stroke prevention and prognosis. continue medications and monitor for worsening neurologic condition LUE spasticity: Stretching with OT. If she tolerates it we can trial PO medications. improving somewhat, tolerating brace CKD with acute exacerbation: avoid nephrotoxic medications, monitor renal function, nephrology consult HTN: continue medications, adjust for normotension. DM 2: continue SSI, monitor GLU Z73.6 ADL dysfunction: OT will work on improving ability to perform ADLs (including assistive devices) to increase independence and decrease caregiver burden and improve functional transfers and mobility training. R26.2 Difficulty walking: PT will work on gait training and proper use of assistive devices and advance as appropriate to use of stairs and outside ambulation on uneven surfaces. R26.81 Unsteadiness on feet: PT will work on improving static and dynamic sitting and standing balance as well as proper use of assistive devices to decrease risk of falls. R26.89 Abnormality of gait: PT will work to improve safety and efficiency of gait through neuromotor training and gait training along with instruction on proper use of assistive devices. M62.81 Muscle weakness: PT & OT will work on strengthening exercises to improve functional strength including mixture of closed and open kinetic chain exercises. R53.81 Debility: PT & OT will work on improving overall functional status to improve participation with ADLs, mobility and social involvement. R53.83 Fatigue: PT & OT will work on improving endurance through aerobic exercises and therapeutic activity while monitoring patients tolerance for activity and vital signs as needed. MS: monitor for any worsening symptoms DVT ppx: heparin Pain: Continue physical modalities in therapy and pain medications as needed to achieve functional pain control. Sleep: Monitor and address as needed. Bowel: Monitor and address as needed. PRN meds available Appetite: Monitor and address as needed. Discharge planning: Pending therapy progress and care plan meeting. Will continue discussion with therapy team, SW, patient . Restrictions/ Precautions: Falls WB status: FWB Functional Hx: ADLs: Independent Cognition: Independent Mobility: RW Barriers to Discharge: Decreased mobility and ability to perform self care, balance deficits, weakness, spasticity Estimated Length of Stay: 14-18 days Discharge Destination: Home with family
[2019-06-18] MEDS: HEPARIN SUB-Q SCH ×3 (05:28→22:18)
[2019-06-18] MEDS: APRESOLINE PO SCH ×3 (05:28→22:30)
[2019-06-18] MEDS: HumaLOG SUB-Q SCH ×4 (07:27→22:30)
[2019-06-18 07:46] LABS: Calcium 9.3 mg/dL (8.4-10.2)
[2019-06-18] MEDS: NORMODYNE PO SCH ×2 (11:23→22:29)
[2019-06-18] MEDS: ECOTRIN PO SCH (11:23)
[2019-06-18] MEDS: FEOSOL PO SCH (11:23)
[2019-06-18] MEDS: CALAN SR PO SCH (11:24)
[2019-06-18] MEDS: CATAPRES PO SCH ×2 (11:24→22:19)
[2019-06-18] MEDS: FOLVITE PO SCH (11:26)
--- NOTE | 2019-06-18 14:29 | Progress Note ---
Assessment and Plan - Patient Problems (1) Acute kidney injury superimposed on chronic kidney disease Current Visit: Yes Status: Acute Plan to address problem: Continue current management. Overall renal function has been stable over the past 3-4 days since transfer to the inpatient rehab unit. Avoid nephrotoxins, maintain MAP >65mmHg. Will obtain UA, urine electrolytes. Discussed with patient that based on her h/o CKD and extent of CHENCHO on this most recent admission, that she should be followed by nephrology as an outpatient. Overall renal function remains stable and will continue to monitor. (2) Hypertensive chronic kidney disease with stage 1 through stage 4 chronic kidney disease, or unspecified chronic kidney disease Current Visit: Yes Status: Chronic Plan to address problem: Continue on current regimen. Will monitor closely. (3) Type 2 diabetes mellitus with diabetic chronic kidney disease Current Visit: Yes Status: Chronic Plan to address problem: DM management per primary team. (4) Systolic CHF, acute on chronic Current Visit: No Status: Chronic Plan to address problem: Volume status is nearly euvolemic at present time. Counseled patient on the importance of low sodium diet and appropriate fluid restrictions. If renal function continues to be stable, will recommend that patient restart on low dose lasix, at 20 mg PO BID to avoid any recurrent issues with fluid overload. Subjective Date of service: 06/18/19 Principal diagnosis: CVA, debility Interval history: No acute issues today. Seen at rehab during her PT therapy session. Labs noted and overall renal function is stable. Objective - Vital Signs Vital signs: Vital Signs - 12hr 06/18/19 06/18/19 06/18/19 05:20 07:27 08:00 Temperature 97.9 F 98.0 F 98 F Pulse Rate 76 Respiratory 18 18 Rate Blood Pressure 156/70 Blood Pressure 175/86 [Right] O2 Sat by Pulse 100 Oximetry 06/18/19 11:15 Temperature Pulse Rate 72 Respiratory Rate Blood Pressure Blood Pressure 170/81 [Right] O2 Sat by Pulse Oximetry - General Appearance General appearance: well-nourished, appears stated age EENT: ATNC, PERRL Neck: no JVD, no thyromegaly Respiratory: Present: Clear to Ascultation Cardiology: regular, S1S2 Gastrointestinal: normal, normoactive bowel sounds Integumentary: warm and dry Neurologic: facial droop, other (ambulates with wheel chair ) Musculoskeletal: other (-edema ) Psychiatric: mood/affect appropriate, cooperative - Lab 06/14/19 06:53 06/18/19 Unknown Most recent lab results Calcium 9.3 mg/dL (8.4-10.2) 06/18/19 Unknown - Allied health notes Allied health notes reviewed: nursing Medications & Allergies - Medications Allergies/Adverse Reactions: Allergies amlodipine besylate [From Norvasc] Allergy (Verified 01/21/14 20:31) Vomiting hydromorphone HCl [From Dilaudid] Allergy (Verified 01/21/14 20:31) Vomiting lisinopril Allergy (Verified 01/21/14 20:31) Unknown Home Medications: Home Medications Medication Instructions Recorded Confirmed Last Taken Type Hydralazine HCl [Apresoline TAB] 50 mg PO TID 06/09/17 06/09/19 Unknown History Docusate Sodium [Colace CAP] 100 mg PO BID #60 capsule 06/12/17 06/09/19 Unknown Rx Aspirin [Aspirin BABY CHEW TAB] 81 mg PO QDAY #30 tab.chew 01/17/18 06/09/19 06/08/19 10:00 Rx AtorvaSTATin [Lipitor] 20 mg PO QHS #30 tablet 01/17/18 06/09/19 Unknown Rx Ferrous Sulfate [Feosol 325 MG tab] 325 mg PO BID #60 tablet 01/17/18 06/09/19 06/08/19 10:00 Rx Insulin Glargine [Lantus VIAL] 7 units SQ QHS 90 Days #90 units 01/17/1805/13 Unknown Rx Labetalol [Labetalol 200mg TAB] 300 mg PO BID #60 tablet 01/17/18 06/09/19 06/08/19 10:00 Rx NIFEdipine XL [Procardia Xl] 60 mg PO QDAY #60 tablet 01/17/18 06/09/19 Unknown Rx hydrALAZINE [Apresoline TAB] 50 mg PO TID #90 tablet 01/17/18 06/09/19 Unknown Rx Active Medications: Generic Name Dose Route Start Last Admin Trade Name Freq PRN Reason Stop Dose Admin Acetaminophen 650 mg 06/08/19 20:15 Tylenol PO Q4H PRN Pain MILD(1-3)/Fever >100.5/GALLARDO Aspirin 325 mg 06/09/19 08:00 06/18/19 11:23 Ecotrin PO 325 mg QDAY [facility] Administration Atorvastatin Calcium 40 mg 06/08/19 21:00 06/17/19 21:17 Lipitor PO 40 mg QHS [facility] Administration Bisacodyl 10 mg 06/08/19 20:15 Dulcolax [place] QDAY PRN Constipation unrelieved by MOM Clonidine HCl 0.1 mg 06/15/19 15:50 06/18/19 11:24 Catapres PO 0.1 mg Q12HR [facility] Administration Dextrose 50 ml 06/08/19 20:15 D50w (25gm) Syringe IV PRN PRN Hypoglycemia Ferrous Sulfate 325 mg 06/09/19 08:00 06/18/19 11:23 Feosol PO 325 mg QDAY [facility] Administration Folic Acid 1 mg 06/10/19 10:00 06/18/19 11:26 Folvite PO 1 mg QDAY [facility] Administration Heparin Sodium (Porcine) 5,000 unit 06/08/19 22:00 06/18/19 05:28 Heparin SUB-Q 5,000 unit Q8HR [facility] Administration Hydralazine HCl 100 mg 06/11/19 17:55 06/18/19 05:28 Apresoline PO 100 mg Q8HR [facility] Administration Insulin Human Lispro 0 unit 06/08/19 22:00 06/18/19 11:18 Humalog SUB-Q Not Given ACHS [facility] Protocol Labetalol HCl 200 mg 06/10/19 10:00 06/18/19 11:23 Normodyne PO 200 mg BID [facility] Administration Ondansetron HCl 4 mg 06/09/19 11:54 06/09/19 12:12 Zofran Odt PO 4 mg Q6H PRN Administration Nausea And Vomiting Senna 8.6 mg 06/08/19 20:15 Senokot PO Q12H PRN Laxative Effect Verapamil HCl 240 mg 06/10/19 10:00 06/18/19 11:24 Calan Sr PO 240 mg DAILY [facility] Administration
--- NOTE | 2019-06-18 16:39 | Progress Note ---
Subjective Date of service: 06/18/19 Principal diagnosis: CVA, debility Interval history: 49-year-old female admitted to outside hospital with shortness of breath and dyspnea on exertion. She is found to have a CHF exacerbation and hypertensive urgency with blood pressure 211/104. Cardiology and nephrology consults were placed. Lasix was discontinued due to elevated creatinine and should be restarted once creatinine is less than 3. Patient's baseline creatinine is 2-3 (both values found in records). Fluid restriction was started at 1500 mL per day. Clonidine and hydralazine were both discontinued patient was continued on labetalol and verapamil. She had two iron infusions. Uncertain why patient was taken off of statin but per patient and her PCP advised not to take it. She yanez s have a history of CVA but was only on aspirin. States statin was stopped by [facility] due to pain in left shoulder which was more likely due to tone. Statin was restarted at outside Hospital. We'll discuss secondary stroke prevention with patient made sure that she and family understand her need to continue with the statin. Patient also has a history of relapsing remitting multiple sclerosis but has not had a flair in 3 years. States she has falls about once a week. Patient is participating in therapy and making reasonable progress. Taking rest breaks as needed. +BM. Denies pain, palpitations, dyspnea, cough, N/V. Ambulating with quad cane. Left shoulder pain somewhat better after therapy. Tone improved slightly. Discussed starting baclofen for tone at low dose and monitoring. BP elevated. Labetolol held last night due to also receiving clonidine even though BP 167/81. Discussed with nursing. Tolerating splint. Appreciate nephrology assistance, may restart lasix. Continue therapy. Discussed in team conference. Making good progress. Look to dc on 06/24 with QC, 3n1 and Outpt therapy. Monitor for side effects of baclofen. Expect to see some drowsiness. All records, vitals, labs and medications were reviewed. No other issues per patient, nursing or therapy. Objective - Exam Narrative Exam: MUSCULOSKELETAL SPECIALTY EXAM CONSTITUTIONAL: Well developed, well nourished, appropriately groomed. RIGHT hand dominant. RESPIRATORY: Clear to auscultation bilaterally, no increased work of breathing CARDIOVASCULAR: Regular Rate/ Rhythm, no swelling, edema or tenderness in BUE or BLE. All extremities warm. GI: + bowel sounds, soft, NTTP, nondistended. INTEGUMENTARY: Normal, no lesion, rash, masses or bruising noted in extremities. MUSCULOSKELETAL: BUE and BLE normal without defect, crepitus, subluxation, effusion, arthritic changes or TTP. SA EF WE EE FF FA HF KE ADF EHL APF R 5/5 overall L 4-/5 4-/5 4-/5 4-/5 4-/5 4-/5 4/5 4/5 4/5 4/5 4/5 ROM decreased on LUE Tone increased in LUE, slightly better NEURO L facial droop Sensation intact in all extremities without extinction. No tremor noted in 4 extremities. Naming and repetition intact. Follows 2 step commands. Aphasia not appreciated Dysarthria not appreciated but she does have slowed maris when speaking Dysphagia not appreciated Neglect not appreciated POSTURE and GAIT: Sitting posture good. Balance decreased. Gait with QC slowed. PSYCH: Alert, oriented x3, affect appears euthymic. Insight appears intact. - Constitutional Vitals: Vital Signs - 12hr 06/18/19 06/18/19 06/18/19 05:20 07:27 08:00 Temperature 36.6 C 36.7 C 36.6 C Pulse Rate 76 Respiratory 18 18 Rate Blood Pressure 156/70 Blood Pressure 175/86 [Right] O2 Sat by Pulse 100 Oximetry 06/18/19 11:15 Temperature Pulse Rate 72 Respiratory Rate Blood Pressure Blood Pressure 170/81 [Right] O2 Sat by Pulse Oximetry - Allied health notes Allied health notes reviewed: nursing, PT, OT FIMS assessment as documented by PT/OT/ST: Grooming Patient cleans teeth/dentures: Yes Patient young/brushes hair: No Patient washes, rinses and Yes dries face: Patient washes, rinses and Yes dries hands: Patient shaves: Yes Patient applies make-up: No Patient performs (no make-up/ 3/4 (75%) shaving): Patient performs (w/ make-up/ 4/5 (80%) shaving): Grooming FIM Score 5. Supervision ([place] applies toothpaste or opens containers.) Toileting Toileting Device Grab Bar Patient able to: Adjust clothes before,Clean self Patient able to perform: 2/3 (67%) Toileting FIM Score 4. Minimal Assistance (Patient = 75% or more. Needs touching.) Social interaction/Memory/Problem solving Social Interaction FIM Score 5. Supervision (Needs supv. <10%. Needs encouragement to participate.) Memory FIM Score 5. Supervision (Needs cueing <10%, stressful/ unfamiliar situations.) Problem Solving FIM Score 4. Minimal Assistance (Solves routine problems 75-90%.) Transfers Mode of Locomotion: Wheelchair Bed/Chair/Wheelchair Transfers 5. Supervision (Needs supv. or set-up for FIM Score sliding board, foot rests.) Toilet Transfers FIM Score 4. Minimal Assistance (Patient = 75% or more. Needs touching.) Patient transferred to: Shower Shower Transfers FIM Score 4. Minimal Assistance (Patient = 75% or more. Needs touching.) Locomotion- Stairs Device used on Stairs Handrail/s Number of Stairs Ascended/ 8 Descended Patient used handrail/support: Yes Stairs FIM Score 2. Maximal Assistance (Patient = 25% or more, 4- 6 stairs.) Locomotion- walk/wheelchair Most Frequent Mode of Wheelchair Locomotion: Ambulation Distance 240 Walking FIM Score 5. Supervision (Minimum 150 ft. supv./cues or 50 ft. independently.) Wheelchair Propulsion Distance 200 Wheelchair FIM Score 5. Supervision (Minimum 150 ft. supv./cues or 50 ft. independently.) Eating Eating FIM Score 5. Supervision/Set-Up (Needs help w/ containers, cutting meat, etc.) Dressing-Upper body Patient retrieves clothing Yes items: Patient applies/removes UE n/a prosthesis or orthosis: Upper Body Dressing FIM Score 5. Supv./Set-Up ([place] sets out clothes or applies pros./orth.) Dressing-lower body Patient retrieves clothing Yes items: Patient applies/removes LE n/a prosthesis or orthosis: Lower Body Dressing FIM Score 5. Supv./Set-Up ([place] sets out clothes or applies pros./orth.) - Labs CBC & Chem 7: 06/19/19 05:55 06/21/19 07:02 Labs: Laboratory Results - last 72 hr 06/15/19 06/16/19 06/16/19 21:50 07:39 07:41 Sodium 141 Potassium 4.4 Chloride 105.7 Carbon Dioxide 22 Anion Gap 18 BUN 26 H Creatinine 3.2 H Estimated GFR 19 BUN/Creatinine Ratio 8 Glucose 78 POC Glucose 274 H 78 Calcium 9.2 06/16/19 06/16/19 06/17/19 15:38 22:41 06:02 Sodium 141 Potassium 4.7 Chloride 106.1 Carbon Dioxide 24 Anion Gap 16 BUN 30 H Creatinine 3.3 H Estimated GFR 18 BUN/Creatinine Ratio 9 Glucose 81 POC Glucose 108 H 86 Calcium 9.0 06/17/19 06/17/19 06/17/19 08:40 13:42 16:41 Sodium Potassium Chloride Carbon Dioxide Anion Gap BUN Creatinine Estimated GFR BUN/Creatinine Ratio Glucose POC Glucose 80 151 H 108 H Calcium 06/17/19 06/18/19 06/18/19 21:50 07:32 11:27 Sodium Potassium Chloride Carbon Dioxide Anion Gap BUN Creatinine Estimated GFR BUN/Creatinine Ratio Glucose POC Glucose 104 77 111 H Calcium 06/18/19 Unknown Sodium 141 Potassium 4.9 Chloride 106.1 Carbon Dioxide 25 Anion Gap 15 BUN 33 H Creatinine 3.6 H Estimated GFR 16 BUN/Creatinine Ratio 9 Glucose 85 POC Glucose Calcium 9.3 Assessment and Plan CVA with Left nondominant hemiplegia: discussed secondary stroke prevention and prognosis. continue medications and monitor for worsening neurologic condition LUE spasticity: Stretching with OT. Starting baclofen. improving somewhat, tolerating brace CKD with acute exacerbation: avoid nephrotoxic medications, monitor renal function, nephrology consult HTN: continue medications, adjust for normotension. DM 2: continue SSI, monitor GLU Z73.6 ADL dysfunction: OT will work on improving ability to perform ADLs (including assistive devices) to increase independence and decrease caregiver burden and improve functional transfers and mobility training. R26.2 Difficulty walking: PT will work on gait training and proper use of assistive devices and advance as appropriate to use of stairs and outside ambulation on uneven surfaces. R26.81 Unsteadiness on feet: PT will work on improving static and dynamic sitting and standing balance as well as proper use of assistive devices to decrease risk of falls. R26.89 Abnormality of gait: PT will work to improve safety and efficiency of gait through neuromotor training and gait training along with instruction on proper use of assistive devices. M62.81 Muscle weakness: PT & OT will work on strengthening exercises to improve functional strength including mixture of closed and open kinetic chain exercises. R53.81 Debility: PT & OT will work on improving overall functional status to improve participation with ADLs, mobility and social involvement. R53.83 Fatigue: PT & OT will work on improving endurance through aerobic exercises and therapeutic activity while monitoring patients tolerance for activity and vital signs as needed. MS: monitor for any worsening symptoms DVT ppx: heparin Pain: Continue physical modalities in therapy and pain medications as needed to achieve functional pain control. Sleep: Monitor and address as needed. Bowel: Monitor and address as needed. PRN meds available Appetite: Monitor and address as needed. Discharge planning: Pending therapy progress and care plan meeting. Will continue discussion with therapy team, SW, patient . Restrictions/ Precautions: Falls WB status: FWB Functional Hx: ADLs: Independent Cognition: Independent Mobility: RW Barriers to Discharge: Decreased mobility and ability to perform self care, bal ance deficits, weakness, spasticity Estimated Length of Stay: 14-18 days Discharge Destination: Home with family
[2019-06-18] MEDS: LIORESAL PO SCH (22:37)
[2019-06-19] MEDS: APRESOLINE PO SCH ×3 (06:03→21:10)
[2019-06-19] MEDS: HEPARIN SUB-Q SCH ×3 (06:03→21:09)
[2019-06-19 06:22] LABS: Hematocrit 29.7 % (30.3-42.9); Hemoglobin 9.5 gm/dl (10.1-14.3); Mean Corpuscular HGB Conc 32 % (30-34); Mean Corpuscular Volume 80 fl (79-97); Platelet Count 259 K/mm3 (140-440); Red Blood Count 3.71 M/mm3 (3.65-5.03)
[2019-06-19 06:23] LABS: Red Cell Distribution Width 20.1 % (13.2-15.2)
--- NOTE | 2019-06-19 08:51 | Progress Note ---
Assessment and Plan - Patient Problems (1) Acute kidney injury superimposed on chronic kidney disease Current Visit: Yes Status: Acute Plan to address problem: Continue current management. Overall renal function remains stable, will monitor closely. (2) Hypertensive chronic kidney disease with stage 1 through stage 4 chronic kidney disease, or unspecified chronic kidney disease Current Visit: Yes Status: Chronic Plan to address problem: Continue on current regimen. Will monitor closely. (3) Type 2 diabetes mellitus with diabetic chronic kidney disease Current Visit: Yes Status: Chronic Plan to address problem: DM management per primary team. (4) Systolic CHF, acute on chronic Current Visit: No Status: Chronic Plan to address problem: Volume status is nearly euvolemic at present time. Counseled patient on the importance of low sodium diet and appropriate fluid restrictions. Restarted patient on lasix given her stable renal function and to avoid overload given her history. Subjective Date of service: 06/19/19 Principal diagnosis: CVA, debility Interval history: Overall renal function remains stable. Labs reviewed this am. Objective - Vital Signs Vital signs: Vital Signs - 12hr 06/18/19 06/18/19 06/19/19 22:19 22:29 00:00 Temperature 98.0 F Pulse Rate 66 66 71 Respiratory 16 Rate Blood Pressure 136/76 136/76 Blood Pressure 168/83 [Right] O2 Sat by Pulse 100 Oximetry 06/19/19 07:37 Temperature 98.0 F Pulse Rate 77 Respiratory 18 Rate Blood Pressure 166/69 Blood Pressure [Right] O2 Sat by Pulse 97 Oximetry - General Appearance General appearance: well-developed, well-nourished, appears stated age EENT: ATNC, PERRL Neck: no JVD, no thyromegaly Respiratory: Present: Clear to Ascultation, Normal Exam Cardiology: regular, S1S2 Gastrointestinal: normal Integumentary: no rash Neurologic: alert and oriented x3 Psychiatric: mood/affect appropriate - Lab 06/19/19 05:55 06/19/19 05:55 Most recent lab results Calcium 9.0 mg/dL (8.4-10.2) 06/19/19 05:55 - Allied health notes Allied health notes reviewed: nursing Medications & Allergies - Medications Allergies/Adverse Reactions: Allergies amlodipine besylate [From Norvasc] Allergy (Verified 01/21/14 20:31) Vomiting hydromorphone HCl [From Dilaudid] Allergy (Verified 01/21/14 20:31) Vomiting lisinopril Allergy (Verified 01/21/14 20:31) Unknown Home Medications: Home Medications Medication Instructions Recorded Confirmed Last Taken Type Hydralazine HCl [Apresoline TAB] 50 mg PO TID 06/09/17 06/09/19 Unknown History Docusate Sodium [Colace CAP] 100 mg PO BID #60 capsule 06/12/17 06/09/19 Unknown Rx Aspirin [Aspirin BABY CHEW TAB] 81 mg PO QDAY #30 tab.chew 01/17/18 06/09/19 06/08/19 10:00 Rx AtorvaSTATin [Lipitor] 20 mg PO QHS #30 tablet 01/17/18 06/09/19 Unknown Rx Ferrous Sulfate [Feosol 325 MG tab] 325 mg PO BID #60 tablet 01/17/18 06/09/19 06/08/19 10:00 Rx Insulin Glargine [Lantus VIAL] 7 units SQ QHS 90 Days #90 units 01/17/18 06/09/19 Unknown Rx Labetalol [Labetalol 200mg TAB] 300 mg PO BID #60 tablet 01/17/18 06/09/19 06/08/19 10:00 Rx NIFEdipine XL [Procardia Xl] 60 mg PO QDAY #60 tablet 01/17/18 06/09/19 Unknown Rx hydrALAZINE [Apresoline TAB] 50 mg PO TID #90 tablet 01/17/18 06/09/19 Unknown Rx Active Medications: Generic Name Dose Route Start Last Admin Trade Name Freq PRN Reason Stop Dose Admin Acetaminophen 650 mg 06/08/19 20:15 Tylenol PO Q4H PRN Pain MILD(1-3)/Fever >100.5/GALLARDO Aspirin 325 mg 06/09/19 08:00 06/18/19 11:23 Ecotrin PO 325 mg QDAY [facility] Administration Atorvastatin Calcium 40 mg 06/08/19 21:00 06/18/19 22:30 Lipitor PO 40 mg QHS [facility] Administration Baclofen 5 mg 06/18/19 20:00 06/18/19 22:37 Lioresal PO 5 mg TID [facility] Administration Bisacodyl 10 mg 06/08/19 20:15 Dulcolax [place] QDAY PRN Constipation unrelieved by MOM Clonidine HCl 0.1 mg 06/15/19 15:50 06/18/19 22:19 Catapres PO 0.1 mg Q12HR [facility] Administration Dextrose 50 ml 06/08/19 20:15 D50w (25gm) Syringe IV PRN PRN Hypoglycemia Ferrous Sulfate 325 mg 06/09/19 08:00 06/18/19 11:23 Feosol PO 325 mg QDAY [facility] Administration Folic Acid 1 mg 06/10/19 10:00 06/18/19 11:26 Folvite PO 1 mg QDAY [facility] Administration Heparin Sodium (Porcine) 5,000 unit 06/08/19 22:00 06/19/19 06:03 Heparin SUB-Q 5,000 unit Q8HR [facility] Administration Hydralazine HCl 100 mg 06/11/19 17:55 06/19/19 06:03 Apresoline PO 100 mg Q8HR [facility] Administration Insulin Human Lispro 0 unit 06/08/19 22:00 06/18/19 22:30 Humalog SUB-Q Not Given ACHS [facility] Protocol Labetalol HCl 200 mg 06/10/19 10:00 06/18/19 22:29 Normodyne PO 200 mg BID [facility] Administration Ondansetron HCl 4 mg 06/09/19 11:54 06/09/19 12:12 Zofran Odt PO 4 mg Q6H PRN Administration Nausea And Vomiting Senna 8.6 mg 06/08/19 20:15 Senokot PO Q12H PRN Laxative Effect Verapamil HCl 240 mg 06/10/19 10:00 06/18/19 11:24 Calan Sr PO 240 mg DAILY [facility] Administration
[2019-06-19] MEDS: LIORESAL PO SCH ×3 (09:12→21:09)
[2019-06-19] MEDS: CATAPRES PO SCH ×2 (09:12→21:10)
[2019-06-19] MEDS: FOLVITE PO SCH (09:12)
[2019-06-19] MEDS: CALAN SR PO SCH (09:12)
[2019-06-19] MEDS: ECOTRIN PO SCH (09:13)
[2019-06-19] MEDS: FEOSOL PO SCH (09:13)
[2019-06-19] MEDS: NORMODYNE PO SCH ×2 (09:13→21:11)
[2019-06-19] MEDS: HumaLOG SUB-Q SCH ×4 (09:14→21:50)
[2019-06-20] MEDS: APRESOLINE PO SCH ×3 (05:29→22:28)
[2019-06-20] MEDS: HEPARIN SUB-Q SCH ×3 (05:29→22:29)
[2019-06-20 07:04] LABS: Calcium 9.1 mg/dL (8.4-10.2)
[2019-06-20] MEDS: LIORESAL PO SCH ×3 (09:10→22:28)
[2019-06-20] MEDS: ECOTRIN PO SCH (09:10)
[2019-06-20] MEDS: FOLVITE PO SCH (09:11)
[2019-06-20] MEDS: CALAN SR PO SCH (09:11)
[2019-06-20] MEDS: FEOSOL PO SCH (09:11)
[2019-06-20] MEDS: NORMODYNE PO SCH ×2 (09:11→22:37)
[2019-06-20] MEDS: CATAPRES PO SCH ×2 (09:11→22:28)
[2019-06-20] MEDS: HumaLOG SUB-Q SCH ×4 (09:12→22:31)
--- NOTE | 2019-06-20 16:22 | Progress Note ---
Assessment and Plan - Patient Problems (1) Acute kidney injury superimposed on chronic kidney disease Current Visit: Yes Status: Acute Plan to address problem: No labs today. Follow-up electrolytes are enough function (2) Hypertensive chronic kidney disease with stage 1 through stage 4 chronic kidney disease, or unspecified chronic kidney disease Current Visit: Yes Status: Chronic Plan to address problem: Blood pressure improving. Follow-up blood pressure on current medications (3) Type 2 diabetes mellitus with diabetic chronic kidney disease Current Visit: Yes Status: Chronic Plan to address problem: Blood sugar management by primary attending. (4) Systolic CHF, acute on chronic Current Visit: No Status: Chronic Plan to address problem: Improved. Not on diuretics at this point. Follow-up volume status Subjective Date of service: 06/20/19 Principal diagnosis: CVA, debility Objective - Vital Signs Vital signs: Vital Signs - 12hr 06/20/19 06/20/19 06/20/19 04:25 07:30 09:11 Temperature 97.6 F 98 F Pulse Rate 76 89 89 Respiratory 18 18 Rate Blood Pressure 183/89 190/89 Blood Pressure 190/89 [Right] O2 Sat by Pulse 97 Oximetry 06/20/19 06/20/19 11:30 15:59 Temperature 97.6 F 98 F Pulse Rate 72 58 L Respiratory 18 18 Rate Blood Pressure Blood Pressure 167/79 123/57 [Right] O2 Sat by Pulse Oximetry - Lab 06/19/19 05:55 06/20/19 06:06 Most recent lab results Calcium 9.1 mg/dL (8.4-10.2) 06/20/19 06:06 Medications & Allergies - Medications Allergies/Adverse Reactions: Allergies amlodipine besylate [From Norvasc] Allergy (Verified 01/21/14 20:31) Vomiting hydromorphone HCl [From Dilaudid] Allergy (Verified 01/21/14 20:31) Vomiting lisinopril Allergy (Verified 01/21/14 20:31) Unknown Home Medications: Home Medications Medication Instructions Recorded Confirmed Last Taken Type Hydralazine HCl [Apresoline TAB] 50 mg PO TID 06/09/17 06/09/19 Unknown History Docusate Sodium [Colace CAP] 100 mg PO BID #60 capsule 06/12/17 06/09/19 Unknown Rx Aspirin [Aspirin BABY CHEW TAB] 81 mg PO QDAY #30 tab.chew 01/17/18 06/09/19 06/08/19 10:00 Rx AtorvaSTATin [Lipitor] 20 mg PO QHS #30 tablet 01/17/18 06/09/19 Unknown Rx Ferrous Sulfate [Feosol 325 MG tab] 325 mg PO BID #60 tablet 01/17/18 06/09/19 06/08/19 10:00 Rx Insulin Glargine [Lantus VIAL] 7 units SQ QHS 90 Days #90 units 01/17/18 06/09/19 Unknown Rx Labetalol [Labetalol 200mg TAB] 300 mg PO BID #60 tablet 01/17/18 06/09/19 06/08/19 10:00 Rx NIFEdipine XL [Procardia Xl] 60 mg PO QDAY #60 tablet 01/17/18 06/09/19 Unknown Rx hydrALAZINE [Apresoline TAB] 50 mg PO TID #90 tablet 01/17/18 06/09/19 Unknown Rx Active Medications: Generic Name Dose Route Start Last Admin Trade Name Freq PRN Reason Stop Dose Admin Acetaminophen 650 mg 06/08/19 20:15 Tylenol PO Q4H PRN Pain MILD(1-3)/Fever >100.5/GALLARDO Aspirin 325 mg 06/09/19 08:00 06/20/19 09:10 Ecotrin PO 325 mg QDAY [facility] Administration Atorvastatin Calcium 40 mg 06/08/19 21:00 06/19/19 21:09 Lipitor PO 40 mg QHS [facility] Administration Baclofen 5 mg 06/18/19 20:00 06/20/19 14:13 Lioresal PO 5 mg TID [facility] Administration Bisacodyl 10 mg 06/08/19 20:15 Dulcolax [place] QDAY PRN Constipation unrelieved by MOM Clonidine HCl 0.1 mg 06/15/19 15:50 06/20/19 09:11 Catapres PO 0.1 mg Q12HR [facility] Administration Dextrose 50 ml 06/08/19 20:15 D50w (25gm) Syringe IV PRN PRN Hypoglycemia Ferrous Sulfate 325 mg 06/09/19 08:00 06/20/19 09:11 Feosol PO 325 mg QDAY [facility] Administration Folic Acid 1 mg 06/10/19 10:00 06/20/19 09:11 Folvite PO 1 mg QDAY [facility] Administration Heparin Sodium (Porcine) 5,000 unit 06/08/19 22:00 06/20/19 14:13 Heparin SUB-Q 5,000 unit Q8HR [facility] Administration Hydralazine HCl 100 mg 06/11/19 17:55 06/20/19 14:13 Apresoline PO 100 mg Q8HR [facility] Administration Insulin Human Lispro 0 unit 06/08/19 22:00 06/20/19 13:23 Humalog SUB-Q Not Given ACHS [facility] Protocol Labetalol HCl 200 mg 06/10/19 10:00 06/20/19 09:11 Normodyne PO 200 mg BID [facility] Administration Ondansetron HCl 4 mg 06/09/19 11:54 06/09/19 12:12 Zofran Odt PO 4 mg Q6H PRN Administration Nausea And Vomiting Senna 8.6 mg 06/08/19 20:15 Senokot PO Q12H PRN Laxative Effect Verapamil HCl 240 mg 06/10/19 10:00 06/20/19 09:11 Calan Sr PO 240 mg DAILY [facility] Administration
[2019-06-21] MEDS: APRESOLINE PO SCH ×2 (04:45→05:49)
[2019-06-21] MEDS: CATAPRES PO SCH ×2 (04:46→10:56)
[2019-06-21] MEDS: HEPARIN SUB-Q SCH ×2 (05:29→14:17)
[2019-06-21] MEDS: NORMODYNE PO SCH ×2 (05:59→08:00)
[2019-06-21] MEDS: HumaLOG SUB-Q SCH ×3 (07:53→16:54)
[2019-06-21 08:15] LABS: Calcium 9.6 mg/dL (8.4-10.2)
[2019-06-21] MEDS: CALAN SR PO SCH ×2 (08:34→10:55)
[2019-06-21] MEDS: ECOTRIN PO SCH (08:57)
--- NOTE | 2019-06-21 09:36 | Progress Note ---
Subjective Date of service: 06/19/19 Principal diagnosis: CVA, debility Interval history: 49-year-old female admitted to outside hospital with shortness of breath and dyspnea on exertion. She is found to have a CHF exacerbation and hypertensive urgency with blood pressure 211/104. Cardiology and nephrology consults were placed. Lasix was discontinued due to elevated creatinine and should be restarted once creatinine is less than 3. Patient's baseline creatinine is 2-3 (both values found in records). Fluid restriction was started at 1500 mL per day. Clonidine and hydralazine were both discontinued patient was continued on labetalol and verapamil. She had two iron infusions. Uncertain why patient was taken off of statin but per patient and her PCP advised not to take it. She yanez s have a history of CVA but was only on aspirin. States statin was stopped by HOSTED SERVICES ANALYST due to pain in left shoulder which was more likely due to tone. Statin was restarted at outside Hospital. We'll discuss secondary stroke prevention with patient made sure that she and family understand her need to continue with the statin. Patient also has a history of relapsing remitting multiple sclerosis but has not had a flair in 3 years. States she has falls about once a week. Patient is participating in therapy and making reasonable progress. Taking rest breaks as needed. +BM. Denies pain, palpitations, dyspnea, cough, N/V. Ambulating with quad cane. Somewhat drowsy this AM. Responsive to questions, no neuro changes other than drowsiness. Likely baclofen related. Tone improved slightly. Tolerating splint. Appreciate nephrology assistance, may restart lasix. Continue therapy. All records, vitals, labs and medications were reviewed. No other issues per patient, nursing or therapy. Objective - Exam Narrative Exam: MUSCULOSKELETAL SPECIALTY EXAM CONSTITUTIONAL: Well developed, well nourished, appropriately groomed. RIGHT hand dominant. RESPIRATORY: Clear to auscultation bilaterally, no increased work of breathing CARDIOVASCULAR: Regular Rate/ Rhythm, no swelling, edema or tenderness in BUE or BLE. All extremities warm. GI: + bowel sounds, soft, NTTP, nondistended. INTEGUMENTARY: Normal, no lesion, rash, masses or bruising noted in extremities. MUSCULOSKELETAL: BUE and BLE normal without defect, crepitus, subluxation, effusion, arthritic changes or TTP. SA EF WE EE FF FA HF KE ADF EHL APF R 5/5 overall L 4-/5 4-/5 4-/5 4-/5 4-/5 4-/5 4/5 4/5 4/5 4/5 4/5 ROM decreased on LUE Tone increased in LUE, slightly better NEURO L facial droop Sensation intact in all extremities without extinction. No tremor noted in 4 extremities. Naming and repetition intact. Follows 2 step commands. Aphasia not appreciated Dysarthria not appreciated but she does have slowed maris when speaking Dysphagia not appreciated Neglect not appreciated POSTURE and GAIT: Sitting posture good. Balance decreased. Gait with QC slowed. PSYCH: Drowsy, oriented x3, affect appears euthymic. Insight appears intact. - Constitutional Vitals: Vital Signs - 12hr 06/20/19 06/20/19 06/21/19 22:28 22:37 01:10 Temperature 36.4 C Pulse Rate 68 68 67 Respiratory 18 Rate Blood Pressure 147/94 147/94 167/79 Blood Pressure [Right] O2 Sat by Pulse 100 Oximetry 06/21/19 06/21/19 06/21/19 04:35 04:46 05:24 Temperature Pulse Rate 65 65 Respiratory Rate Blood Pressure 203/97 Blood Pressure 198/89 [Right] O2 Sat by Pulse 100 Oximetry 06/21/19 06/21/19 06/21/19 05:58 05:59 06:02 Temperature 37.3 C Pulse Rate 105 H 62 65 Respiratory 18 Rate Blood Pressure 192/92 Blood Pressure 203/97 192/92 [Right] O2 Sat by Pulse 97 Oximetry 06/21/19 07:45 Temperature 36.7 C Pulse Rate 80 Respiratory 18 Rate Blood Pressure 157/95 Blood Pressure [Right] O2 Sat by Pulse 97 Oximetry - Allied health notes Allied health notes reviewed: nursing, PT, OT FIMS assessment as documented by PT/OT/ST: Grooming Patient cleans teeth/dentures: Yes Patient young/brushes hair: No Patient washes, rinses and Yes dries face: Patient washes, rinses and Yes dries hands: Patient shaves: Yes Patient applies make-up: No Patient performs (no make-up/ 3/4 (75%) shaving): Patient performs (w/ make-up/ 4/5 (80%) shaving): Grooming FIM Score 5. Supervision ([place] applies toothpaste or opens containers.) Toileting Toileting Device Grab Bar Patient able to: Adjust clothes before,Clean self Patient able to perform: 2/3 (67%) Toileting FIM Score 4. Minimal Assistance (Patient = 75% or more. Needs touching.) Social interaction/Memory/Problem solving Social Interaction FIM Score 7. Complete [place] (Interacts appropriately. Controls temper.) Memory FIM Score 7. Complete [place] (Remembers people and routines.) Problem Solving FIM Score 5. Supervision (Needs cueing <10% to solve routine problems.) Transfers Mode of Locomotion: Walking Bed/Chair/Wheelchair Transfers 5. Supervision (Needs supv. or set-up for FIM Score sliding board, foot rests.) Toilet Transfers FIM Score 5. Supervision (Needs supervision or cueing.) Patient transferred to: Shower Shower Transfers FIM Score 4. Minimal Assistance (Patient = 75% or more. Needs touching.) Locomotion- Stairs Device used on Stairs Handrail/s Number of Stairs Ascended/ 8 Descended Patient used handrail/support: Yes Stairs FIM Score 2. Maximal Assistance (Patient = 25% or more, 4- 6 stairs.) Locomotion- walk/wheelchair Most Frequent Mode of Wheelchair Locomotion: Ambulation Distance 91 Walking FIM Score 5. Supervision (Minimum 150 ft. supv./cues or 50 ft. independently.) Wheelchair Propulsion Distance 200 Wheelchair FIM Score 5. Supervision (Minimum 150 ft. supv./cues or 50 ft. independently.) Eating Eating Device Adjusted Table Height Eating FIM Score 5. Supervision/Set-Up (Needs help w/ containers, cutting meat, etc.) Dressing-Upper body Patient retrieves clothing Yes items: Patient applies/removes UE n/a prosthesis or orthosis: Upper Body Dressing FIM Score 5. Supv./Set-Up ([place] sets out clothes or applies pros./orth.) Dressing-lower body Patient retrieves clothing No items: Patient applies/removes LE No prosthesis or orthosis: Lower Body Dressing FIM Score 6. Modified [place] (Needs equipment, velcro or pros./orth.) - Labs CBC & Chem 7: 06/19/19 05:55 06/21/19 07:02 Labs: Laboratory Results - last 72 hr 06/18/19 06/18/19 06/18/19 11:27 16:51 22:04 WBC RBC Hgb Hct MCV MCH MCHC RDW Plt Count Sodium Potassium Chloride Carbon Dioxide Anion Gap BUN Creatinine Estimated GFR BUN/Creatinine Ratio Glucose POC Glucose 111 H 106 H 118 H Calcium 06/19/19 06/19/19 06/19/19 05:55 05:55 07:45 WBC 3.5 L RBC 3.71 Hgb 9.5 L Hct 29.7 L MCV 80 MCH 26 L MCHC 32 RDW 20.1 H Plt Count 259 Sodium 141 Potassium 4.7 Chloride 105.0 Carbon Dioxide 22 Anion Gap 19 BUN 35 H Creatinine 3.4 H Estimated GFR 18 BUN/Creatinine Ratio 10 Glucose 84 POC Glucose 81 Calcium 9.0 06/19/19 06/19/19 06/19/19 11:44 16:39 21:35 WBC RBC Hgb Hct MCV MCH MCHC RDW Plt Count Sodium Potassium Chloride Carbon Dioxide Anion Gap BUN Creatinine Estimated GFR BUN/Creatinine Ratio Glucose POC Glucose 144 H 133 H 129 H Calcium 06/20/19 06/20/19 06/20/19 06:06 07:45 11:55 WBC RBC Hgb Hct MCV MCH MCHC RDW Plt Count Sodium 141 Potassium 4.7 Chloride 105.5 Carbon Dioxide 23 Anion Gap 17 BUN 35 H Creatinine 3.5 H Estimated GFR 17 BUN/Creatinine Ratio 10 Glucose 84 POC Glucose 86 101 Calcium 9.1 06/20/19 06/20/19 06/21/19 16:22 21:55 05:29 WBC RBC Hgb Hct MCV MCH MCHC RDW Plt Count Sodium Potassium Chloride Carbon Dioxide Anion Gap BUN Creatinine Estimated GFR BUN/Creatinine Ratio Glucose POC Glucose 108 H 79 87 Calcium 06/21/19 06/21/19 07:02 07:54 WBC RBC Hgb Hct MCV MCH MCHC RDW Plt Count Sodium 141 Potassium 4.5 Chloride 104.5 Carbon Dioxide 23 Anion Gap 18 BUN 30 H Creatinine 3.3 H Estimated GFR 18 BUN/Creatinine Ratio 9 Glucose 98 POC Glucose 99 Calcium 9.6 Assessment and Plan CVA with Left nondominant hemiplegia: discussed secondary stroke prevention and prognosis. continue medications and monitor for worsening neurologic condition LUE spasticity: Stretching with OT. Cont baclofen at low dose. improving somewhat, tolerating brace CKD with acute exacerbation: avoid nephrotoxic medications, monitor renal function, nephrology consult HTN: continue medications, adjust for normotension. DM 2: continue SSI, monitor GLU Z73.6 ADL dysfunction: OT will work on improving ability to perform ADLs (including assistive devices) to increase independence and decrease caregiver burden and improve functional transfers and mobility training. R26.2 Difficulty walking: PT will work on gait training and proper use of assistive devices and advance as appropriate to use of stairs and outside ambulation on uneven surfaces. R26.81 Unsteadiness on feet: PT will work on improving static and dynamic sitting and standing balance as well as proper use of assistive devices to decrease risk of falls. R26.89 Abnormality of gait: PT will work to improve safety and efficiency of gait through neuromotor training and gait training along with instruction on proper use of assistive devices. M62.81 Muscle weakness: PT & OT will work on strengthening exercises to improve functional strength including mixture of closed and open kinetic chain exercises. R53.81 Debility: PT & OT will work on improving overall functional status to improve participation with ADLs, mobility and social involvement. R53.83 Fatigue: PT & OT will work on improving endurance through aerobic exercises and therapeutic activity while monitoring patients tolerance for activity and vital signs as needed. MS: monitor for any worsening symptoms DVT ppx: heparin Pain: Continue physical modalities in therapy and pain medications as needed to achieve functional pain control. Sleep: Monitor and address as needed. Bowel: Monitor and address as needed. PRN meds available Appetite: Monitor and address as needed. Discharge planning: Pending therapy progress and care plan meeting. Will con tinue discussion with therapy team, SW, patient . Restrictions/ Precautions: Falls WB status: FWB Functional Hx: ADLs: Independent Cognition: Independent Mobility: RW Barriers to Discharge: Decreased mobility and ability to perform self care, balance deficits, weakness, spasticity Estimated Length of Stay: 14-18 days Discharge Destination: Home with family
--- NOTE | 2019-06-21 09:38 | Event Note ---
Date: 06/21/19 Notified last night after baclofen dose had been given that patient was drowsy and not herself. Likely baclofen related. D/c'd baclofen. Called this AM and informed that a Code Met was called. Awaiting CT head results. CT Head NEG for acute changes. Spoke with Nursing and Rd Mechanical Engineer. Continue to monitor closely for return to baseline.
--- NOTE | 2019-06-21 10:00 | Cat Scan Report ---
CT HEAD WITHOUT CONTRAST INDICATION / CLINICAL INFORMATION: AMS; HX CVA. TECHNIQUE: All CT scans at this location are performed using CT dose reduction for ALARA by means of automated e xposure control. COMPARISON: 06/09/17 FINDINGS: HEMORRHAGE: None. EXTRA-AXIAL SPACES: Mildly prominent but unchanged. VENTRICULAR SYSTEM: Mildly prominent but unchanged. CEREBRAL PARENCHYMA: Periventricular white matter hypodensities are unchanged likely representing iwona roangiopathy. Right thalamic lacunar infarct is unchanged. MIDLINE SHIFT OR HERNIATION: None. CEREBELLUM / BRAINSTEM: No significant abnormality. ORBITS: Normal as visualized. SOFT TISSUES of HEAD: No significant abnormality. CALVARIUM: No significant abnormality. PARANASAL SINUSES / MASTOID AIR CELLS: Normal as visualized. ADDITIONAL FINDINGS: None. IMPRESSION: 1. No acute intracranial abnormality. 2. Chronic microangiopathy and lacunar infarcts. Signer Name: Geovany Larson MD Signed: 06/21/2019 9:56 AM Workstation Name: [id number]
[2019-06-21] MEDS: FOLVITE PO SCH (10:41)
[2019-06-21] MEDS: FEOSOL PO SCH (10:41)
[2019-06-21] MEDS ORDERED: ZOFRAN IV PRN (12:19)
[2019-06-21] MEDS ORDERED: LASIX IV SCH (13:00)
[2019-06-21] MEDS ORDERED: CATAPRES-TTS PATCH TD SCH ×2 (13:00→14:00)
[2019-06-21] MEDS ORDERED: APRESOLINE IV ONE ×4 (13:00→19:00)
[2019-06-21] MEDS ORDERED: NACL 0.9% 1000 ML 1,000 ML IV SCH (13:00)
[2019-06-21 13:23] LABS: Hematocrit 30.1 % (30.3-42.9); Hemoglobin 9.6 gm/dl (10.1-14.3); Mean Corpuscular HGB Conc 32 % (30-34); Mean Corpuscular Volume 79 fl (79-97)
[2019-06-21 13:25] LABS: Platelet Count 270 K/mm3 (140-440)
--- NOTE | 2019-06-21 13:57 | XRay Report ---
ABDOMEN 1 VIEW(S) INDICATION / CLINICAL INFORMATION: Nausea and vomiting. COMPARISON: None available. FINDINGS: TUBES / LINES: None. BOWEL GAS PATTERN: No significant abnormality. FREE AIR / EXTRALUMINAL GAS: None seen. ADDITIONAL FINDINGS: Coarse calcifications in the right hemipelvis could be vascular or related to ut erine fibroid. Clips are noted in the right upper quadrant. IMPRESSION: 1. No radiographic evidence of acute abdomen. Signer Name: Rigoberto Mora MD Signed: 06/21/2019 1:53 PM Workstation Name: [id number]
--- NOTE | 2019-06-21 13:58 | XRay Report ---
CHEST 1 VIEW INDICATION: Change in condition, possible aspiration. COMPARISON: None. FINDINGS: Support devices: None. Heart: Normal. Lungs/Pleura: No acute pulmonary or pleural findings. IMPRESSION: 1. No acute findings. Signer Name: Rigoberto Mora MD Signed: 06/21/2019 1:54 PM Workstation Name: [email or web address]
--- NOTE | 2019-06-21 14:15 | Progress Note ---
Subjective Date of service: 06/21/19 Principal diagnosis: CVA, debility Interval history: 49-year-old female admitted to outside hospital with shortness of breath and dyspnea on exertion. She is found to have a CHF exacerbation and hypertensive urgency with blood pressure 211/104. Cardiology and nephrology consults were placed. Lasix was discontinued due to elevated creatinine and should be restarted once creatinine is less than 3. Patient's baseline creatinine is 2-3 (both values found in records). Fluid restriction was started at 1500 mL per day. Clonidine and hydralazine were both discontinued patient was continued on labetalol and verapamil. She had two iron infusions. Uncertain why patient was taken off of statin but per patient and her PCP advised not to take it. She yanez s have a history of CVA but was only on aspirin. States statin was stopped by TOP STITCHER due to pain in left shoulder which was more likely due to tone. Statin was restarted at outside Hospital. We'll discuss secondary stroke prevention with patient made sure that she and family understand her need to continue with the statin. Patient also has a history of relapsing remitting multiple sclerosis but has not had a flair in 3 years. States she has falls about once a week. Patient had Code Met called earlier. Head CT NEG for acute changes. On my exam she is lethargic, CN exam similar to prior exam. She is able to answer questions and follow commands. Appearance is that she had a bad reaction B aclofen which was started night at low dose. Vision and motor intact as before. Later, patient stated she could not see - Stat MRI brain was ordered but unavailable. A Code Stroke was called. Before the team arrived she was able to see again. She went for CT Head - neurologist wanted contrast but clerical office could not approve given her renal function. Repeat CT head NEG. Stroke team was also team who responded to code met earlier and stated she looked much better and was more interactive than before. For safety, have made her NPO until she is more alert. Medications adjusted to IV. Spoke with father who came in just after we called michael stroke. He states she would sleep for days after taking clonidine 0.3. She is only on 0.1 currently. Will d/c in case she is having a combined effect. If she is stable prior to my departure, I will keep on rehab floor with close monitoring. If not, will talk to hospitalist. D/C to hospitalist. Patient stable after second CT head. All records, vitals, labs and medications were reviewed. No other issues per patient, nursing or therapy. Objective - Exam Narrative Exam: MUSCULOSKELETAL SPECIALTY EXAM CONSTITUTIONAL: Well developed, well nourished, appropriately groomed. RIGHT hand dominant. RESPIRATORY: Clear to auscultation bilaterally, no increased work of breathing CARDIOVASCULAR: Regular Rate/ Rhythm, no swelling, edema or tenderness in BUE or BLE. All extremities warm. GI: + bowel sounds, soft, NTTP, nondistended. INTEGUMENTARY: Normal, no lesion, rash, masses or bruising noted in extremities. MUSCULOSKELETAL: BUE and BLE normal without defect, crepitus, subluxation, effusion, arthritic changes or TTP. R 5/5 overall L 3/5 overall ROM decreased on LUE Tone increased in LUE, slightly better NEURO L facial droop, decreased initiation Sensation intact in all extremities without extinction. No tremor noted in 4 extremities. Naming and repetition intact. Follows 1 step commands. Aphasia not appreciated Dysarthria not appreciated but she does have slowed maris when speaking Dysphagia not appreciated Neglect not appreciated POSTURE and GAIT: Not assessed due to condition PSYCH: Drowsy, oriented x2, affect appears anxious. - Constitutional Vitals: Vital Signs - 12hr 06/21/19 06/21/19 06/21/19 04:35 04:46 05:24 Temperature Pulse Rate 65 65 Respiratory Rate Blood Pressure 203/97 Blood Pressure 198/89 [Right] O2 Sat by Pulse 100 Oximetry 06/21/19 06/21/19 06/21/19 05:58 05:59 06:02 Temperature 37.3 C Pulse Rate 105 H 62 65 Respiratory 18 Rate Blood Pressure 192/92 Blood Pressure 203/97 192/92 [Right] O2 Sat by Pulse 97 Oximetry 06/21/19 06/21/19 07:45 11:41 Temperature 36.7 C 36.4 C L Pulse Rate 80 78 Respiratory 18 18 Rate Blood Pressure 157/95 193/97 Blood Pressure [Right] O2 Sat by Pulse 97 98 Oximetry - Allied health notes FIMS assessment as documented by PT/OT/ST: Grooming Patient cleans teeth/dentures: Yes Patient young/brushes hair: No Patient washes, rinses and Yes dries face: Patient washes, rinses and Yes dries hands: Patient shaves: Yes Patient applies make-up: No Patient performs (no make-up/ 3/4 (75%) shaving): Patient performs (w/ make-up/ 4/5 (80%) shaving): Grooming FIM Score 5. Supervision ([place] applies toothpaste or opens containers.) Toileting Toileting Device Grab Bar Patient able to: Adjust clothes before,Clean self Patient able to perform: 2/3 (67%) Toileting FIM Score 4. Minimal Assistance (Patient = 75% or more. Needs touching.) Social interaction/Memory/Problem solving Social Interaction FIM Score 7. Complete [place] (Interacts appropriately. Controls temper.) Memory FIM Score 7. Complete [place] (Remembers people and routines.) Problem Solving FIM Score 5. Supervision (Needs cueing <10% to solve routine problems.) Transfers Mode of Locomotion: Walking Bed/Chair/Wheelchair Transfers 5. Supervision (Needs supv. or set-up for FIM Score sliding board, foot rests.) Toilet Transfers FIM Score 5. Supervision (Needs supervision or cueing.) Patient transferred to: Shower Shower Transfers FIM Score 4. Minimal Assistance (Patient = 75% or more. Needs touching.) Locomotion- Stairs Device used on Stairs Handrail/s Number of Stairs Ascended/ 8 Descended Patient used handrail/support: Yes Stairs FIM Score 2. Maximal Assistance (Patient = 25% or more, 4- 6 stairs.) Locomotion- walk/wheelchair Most Frequent Mode of Wheelchair Locomotion: Ambulation Distance 91 Walking FIM Score 5. Supervision (Minimum 150 ft. supv./cues or 50 ft. independently.) Wheelchair Propulsion Distance 200 Wheelchair FIM Score 5. Supervision (Minimum 150 ft. supv./cues or 50 ft. independently.) Eating Eating Device Adjusted Table Height Eating FIM Score 5. Supervision/Set-Up (Needs help w/ containers, cutting meat, etc.) Dressing-Upper body Patient retrieves clothing Yes items: Patient applies/removes UE n/a prosthesis or orthosis: Upper Body Dressing FIM Score 5. Supv./Set-Up ([place] sets out clothes or applies pros./orth.) Dressing-lower body Patient retrieves clothing No items: Patient applies/removes LE No prosthesis or orthosis: Lower Body Dressing FIM Score 6. Modified [place] (Needs equipment, velcro or pros./orth.) - Labs CBC & Chem 7: 06/21/19 12:53 06/21/19 07:02 Labs: Laboratory Results - last 72 hr 06/18/19 06/18/19 06/19/19 16:51 22:04 05:55 WBC RBC Hgb Hct MCV MCH MCHC RDW Plt Count Sodium 141 Potassium 4.7 Chloride 105.0 Carbon Dioxide 22 Anion Gap 19 BUN 35 H Creatinine 3.4 H Estimated GFR 18 BUN/Creatinine Ratio 10 Glucose 84 POC Glucose 106 H 118 H Calcium 9.0 06/19/19 06/19/19 06/19/19 05:55 07:45 11:44 WBC 3.5 L RBC 3.71 Hgb 9.5 L Hct 29.7 L MCV 80 MCH 26 L MCHC 32 RDW 20.1 H Plt Count 259 Sodium Potassium Chloride Carbon Dioxide Anion Gap BUN Creatinine Estimated GFR BUN/Creatinine Ratio Glucose POC Glucose 81 144 H Calcium 06/19/19 06/19/19 06/20/19 16:39 21:35 06:06 WBC RBC Hgb Hct MCV MCH MCHC RDW Plt Count Sodium 141 Potassium 4.7 Chloride 105.5 Carbon Dioxide 23 Anion Gap 17 BUN 35 H Creatinine 3.5 H Estimated GFR 17 BUN/Creatinine Ratio 10 Glucose 84 POC Glucose 133 H 129 H Calcium 9.1 06/20/19 06/20/19 06/20/19 07:45 11:55 16:22 WBC RBC Hgb Hct MCV MCH MCHC RDW Plt Count Sodium Potassium Chloride Carbon Dioxide Anion Gap BUN Creatinine Estimated GFR BUN/Creatinine Ratio Glucose POC Glucose 86 101 108 H Calcium 06/20/19 06/21/19 06/21/19 21:55 05:29 07:02 WBC RBC Hgb Hct MCV MCH MCHC RDW Plt Count Sodium 141 Potassium 4.5 Chloride 104.5 Carbon Dioxide 23 Anion Gap 18 BUN 30 H Creatinine 3.3 H Estimated GFR 18 BUN/Creatinine Ratio 9 Glucose 98 POC Glucose 79 87 Calcium 9.6 06/21/19 06/21/19 06/21/19 07:54 11:52 12:53 WBC 2.9 L RBC 3.80 Hgb 9.6 L Hct 30.1 L MCV 79 MCH 25 L MCHC 32 RDW 20.0 H Plt Count 270 Sodium Potassium Chloride Carbon Dioxide Anion Gap BUN Creatinine Estimated GFR BUN/Creatinine Ratio Glucose POC Glucose 99 104 Calcium Assessment and Plan Lethargic - reaction to baclofen (5mg TID - total of 7 doses) started on PM vs CVA. Possibly clonidine (on 0.1mg) as well. Father said she would sleep for days on clonidine 0.3mg. BP is elevated, but otherwise stable. Will continue to monitor closely and consider hospitalist consult. CVA with Left nondominant hemiplegia: discussed secondary stroke prevention and prognosis. continue medications and monitor for worsening neurologic condition LUE spasticity: Stretching with OT. D/C baclofen. tolerating brace CKD with acute exacerbation: avoid nephrotoxic medications, monitor renal function, nephrology consult HTN: continue medications, adjust for normotension. NPO, medications adjusted to IV DM 2: continue SSI, monitor GLU Z73.6 ADL dysfunction: OT will work on improving ability to perform ADLs (including assistive devices) to increase independence and decrease caregiver burden and improve functional transfers and mobility training. R26.2 Difficulty walking: PT will work on gait training and proper use of ass istive devices and advance as appropriate to use of stairs and outside ambulation on uneven surfaces. R26.81 Unsteadiness on feet: PT will work on improving static and dynamic sitting and standing balance as well as proper use of assistive devices to decrease risk of falls. R26.89 Abnormality of gait: PT will work to improve safety and efficiency of gait through neuromotor training and gait training along with instruction on proper use of assistive devices. M62.81 Muscle weakness: PT & OT will work on strengthening exercises to improve functional strength including mixture of closed and open kinetic chain exercises. R53.81 Debility: PT & OT will work on improving overall functional status to improve participation with ADLs, mobility and social involvement. R53.83 Fatigue: PT & OT will work on improving endurance through aerobic exercises and therapeutic activity while monitoring patients tolerance for activity and vital signs as needed. MS: monitor for any worsening symptoms DVT ppx: heparin Pain: Continue physical modalities in therapy and pain medications as needed to achieve functional pain control. Sleep: Monitor and address as needed. Bowel: Monitor and address as needed. PRN meds available Appetite: Monitor and address as needed. Discharge planning: Pending therapy progress and care plan meeting. Will continue discussion with therapy team, SW, patient . Restrictions/ Precautions: Falls WB status: FWB Functional Hx: ADLs: Independent Cognition: Independent Mobility: RW Barriers to Discharge: Decreased mobility and ability to perform self care, balance deficits, weakness, spasticity Estimated Length of Stay: 14-18 days Discharge Destination: Home with family
--- NOTE | 2019-06-21 15:07 | Progress Note ---
Assessment and Plan - Patient Problems (1) Acute kidney injury superimposed on chronic kidney disease Current Visit: Yes Status: Acute Plan to address problem: Kidney fxn is not significantly changed.. Follow-up electrolytes aand renal function (2) Hypertensive chronic kidney disease with stage 1 through stage 4 chronic kidney disease, or unspecified chronic kidney disease Current Visit: Yes Status: Chronic Plan to address problem: Blood pressure is uncontrolled. Adjust medications. Follow-up blood pressure on adjusted medications (3) Type 2 diabetes mellitus with diabetic chronic kidney disease Current Visit: Yes Status: Chronic Plan to address problem: Blood sugar management by primary attending. (4) Systolic CHF, acute on chronic Current Visit: No Status: Chronic Plan to address problem: Improved. Resume diuretic. Follow-up volume status Subjective Date of service: 06/21/19 Principal diagnosis: CVA, debility Interval history: Patient seen lying in bed. Not moving as good as she was yesterday. Objective - Exam Narrative Exam: Middle-aged, -[place] female lying in bed in no acute distress HEENT: Face is symmetrical, pink oral mucous membrane Neck: Supple, no venous distention CVS: S1S2 RRR with no murmur, rub or gallop Chest: Clear to auscultation Abdomen: Protuberant, soft, nontender, no organomegaly, bowel sounds are present Extremities: No edema Neuro: Awake, alert muscle power 0/ 5 on the left and 4/5 on the right - Vital Signs Vital signs: Vital Signs - 12hr 06/21/19 06/21/19 06/21/19 04:35 04:46 05:24 Temperature Pulse Rate 65 65 Respiratory Rate Blood Pressure 203/97 Blood Pressure 198/89 [Right] O2 Sat by Pulse 100 Oximetry 06/21/19 06/21/19 06/21/19 05:58 05:59 06:02 Temperature 99.1 F Pulse Rate 105 H 62 65 Respiratory 18 Rate Blood Pressure 192/92 Blood Pressure 203/97 192/92 [Right] O2 Sat by Pulse 97 Oximetry 06/21/19 06/21/19 07:45 11:41 Temperature 98.0 F 97.5 F L Pulse Rate 80 78 Respiratory 18 18 Rate Blood Pressure 157/95 193/97 Blood Pressure [Right] O2 Sat by Pulse 97 98 Oximetry - Lab 06/21/19 12:53 06/21/19 07:02 Most recent lab results Calcium 9.6 mg/dL (8.4-10.2) 06/21/19 07:02 Medications & Allergies - Medications Allergies/Adverse Reactions: Allergies amlodipine besylate [From Norvasc] Allergy (Verified 01/21/14 20:31) Vomiting hydromorphone HCl [From Dilaudid] Allergy (Verified 01/21/14 20:31) Vomiting lisinopril Allergy (Verified 01/21/14 20:31) Unknown Home Medications: Home Medications Medication Instructions Recorded Confirmed Last Taken Type Hydralazine HCl [Apresoline TAB] 50 mg PO TID 06/09/17 06/09/19 Unknown History Docusate Sodium [Colace CAP] 100 mg PO BID #60 capsule 06/12/17 06/09/19 Unknown Rx Aspirin [Aspirin BABY CHEW TAB] 81 mg PO QDAY #30 tab.chew 01/17/18 06/09/19 06/08/19 10:00 Rx AtorvaSTATin [Lipitor] 20 mg PO QHS #30 tablet 01/17/18 06/09/19 Unknown Rx Ferrous Sulfate [Feosol 325 MG tab] 325 mg PO BID #60 tablet 01/17/18 06/09/19 06/08/19 10:00 Rx Insulin Glargine [Lantus VIAL] 7 units SQ QHS 90 Days #90 units 01/17/18 Unknown Rx Labetalol [Labetalol 200mg TAB] 300 mg PO BID #60 tablet 01/17/18 06/09/19 06/08/19 10:00 Rx NIFEdipine XL [Procardia Xl] 60 mg PO QDAY #60 tablet 01/17/18 06/09/19 Unknown Rx hydrALAZINE [Apresoline TAB] 50 mg PO TID #90 tablet 01/17/18 06/09/19 Unknown Rx Active Medications: Generic Name Dose Route Start Last Admin Trade Name Freq PRN Reason Stop Dose Admin Acetaminophen 650 mg 06/08/19 20:15 Tylenol PO Q4H PRN Pain MILD(1-3)/Fever >100.5/GALLARDO Aspirin 325 mg 06/09/19 08:00 06/21/19 08:57 Ecotrin PO 325 mg QDAY [facility] Administration Atorvastatin Calcium 40 mg 06/08/19 21:00 06/20/19 22:28 Lipitor PO 40 mg QHS [facility] Administration Bisacodyl 10 mg 06/08/19 20:15 Dulcolax NM QDAY PRN Constipation unrelieved by MOM Clonidine HCl 0.1 mg 06/21/19 13:00 06/21/19 14:53 Catapres-Tts Patch TD 0.1 mg Abdul CASPER Administration Dextrose 50 ml 06/08/19 20:15 D50w (25gm) Syringe IV PRN PRN Hypoglycemia Ferrous Sulfate 325 mg 06/09/19 08:00 06/21/19 10:41 Feosol PO 325 mg QDAY [facility] Administration Folic Acid 1 mg 06/10/19 10:00 06/21/19 10:41 Folvite PO 1 mg QDAY [facility] Administration Furosemide 20 mg 06/21/19 13:00 06/21/19 14:03 Lasix IV 20 mg QDAY [facility] Administration Heparin Sodium (Porcine) 5,000 unit 06/08/19 22:00 06/21/19 14:17 Heparin SUB-Q 5,000 unit Q8HR [facility] Administration Sodium Chloride 1,000 mls @ 100 mls/hr 06/21/19 13:00 Nacl 0.9% 1000 Ml IV DIRECT [facility] Insulin Human Lispro 0 unit 06/08/19 22:00 06/20/19 22:31 Humalog SUB-Q Not Given [facility] Protocol Ondansetron HCl 4 mg 06/09/19 11:54 06/09/19 12:12 Zofran Odt PO 4 mg Q6H PRN Administration Nausea And Vomiting Ondansetron HCl 4 mg 06/21/19 12:19 Zofran IV Q8H PRN Nausea And Vomiting Senna 8.6 mg 06/08/19 20:15 Senokot PO Q12H PRN Laxative Effect Verapamil HCl 240 mg 06/10/19 10:00 06/21/19 10:55 Calan Sr PO Not Given DAILY [facility]
--- NOTE | 2019-06-21 16:16 | Consultation ---
History of Present Illness Consult date: 06/21/19 Past History Past Medical History: anemia, diabetes, heart failure, hypertension, stroke, other (CKD, Relapsing/remitting MS, [place] palsy) Past Surgical History: cholecystectomy Social history: lives with family (2 level home, with sister. Father assists. ), full code, other (RW). denies: smoking (former), alcohol abuse, prescription drug abuse, IV drug use Family history: diabetes, hypertension, stroke Medications and Allergies Allergies Allergy/AdvReac Type Severity Reaction Status Date / Time amlodipine besylate Allergy Vomiting Verified 01/21/14 20:31 [From Norvasc] hydromorphone HCl Allergy Vomiting Verified 01/21/14 20:31 [From Dilaudid] lisinopril Allergy Unknown Verified 01/21/14 20:31 Home Medications Medication Instructions Recorded Confirmed Last Taken Type Hydralazine HCl [Apresoline TAB] 50 mg PO TID 06/09/17 06/09/19 Unknown History Docusate Sodium [Colace CAP] 100 mg PO BID #60 capsule 06/12/17 06/09/19 Unknown Rx Aspirin [Aspirin BABY CHEW TAB] 81 mg PO QDAY #30 tab.chew 01/17/18 06/09/19 06/08/19 10:00 Rx AtorvaSTATin [Lipitor] 20 mg PO QHS #30 tablet 01/17/18 06/09/19 Unknown Rx Ferrous Sulfate [Feosol 325 MG tab] 325 mg PO BID #60 tablet 01/17/18 06/09/19 06/08/19 10:00 Rx Insulin Glargine [Lantus VIAL] 7 units SQ QHS 90 Days #90 units 01/17/18 06/09/19 Unknown Rx Labetalol [Labetalol 200mg TAB] 300 mg PO BID #60 tablet 01/17/18 06/09/19 06/08/19 10:00 Rx NIFEdipine XL [Procardia Xl] 60 mg PO QDAY #60 tablet 01/17/18 06/09/19 Unknown Rx hydrALAZINE [Apresoline TAB] 50 mg PO TID #90 tablet 01/17/18 06/09/19 Unknown R x Active Meds: Active Medications Acetaminophen (Tylenol) 650 mg PO Q4H PRN PRN Reason: Pain MILD(1-3)/Fever >100.5/GALLARDO Aspirin (Ecotrin) 325 mg PO QDAY [facility] Last Admin: 06/21/19 08:57 Dose: 325 mg Documented by: Atorvastatin Calcium (Lipitor) 40 mg PO QHS [facility] Last Admin: 06/20/19 22:28 Dose: 40 mg Documented by: Bisacodyl (Dulcolax) 10 mg [place] QDAY PRN PRN Reason: Constipation unrelieved by MOM Clonidine HCl (Catapres-Tts Patch) 0.1 mg TD Abdul [facility] Last Admin: 06/21/19 14:53 Dose: 0.1 mg Documented by: Dextrose (D50w (25gm) Syringe) 50 ml IV PRN PRN PRN Reason: Hypoglycemia Ferrous Sulfate (Feosol) 325 mg PO QDAY [facility] Last Admin: 06/21/19 10:41 Dose: 325 mg Documented by: Folic Acid (Folvite) 1 mg PO QDAY [facility] Last Admin: 06/21/19 10:41 Dose: 1 mg Documented by: Furosemide (Lasix) 20 mg IV QDAY [facility] Last Admin: 06/21/19 14:03 Dose: 20 mg Documented by: Heparin Sodium (Porcine) (Heparin) 5,000 unit SUB-Q Q8HR [facility] Last Admin: 06/21/19 14:17 Dose: 5,000 unit Documented by: Sodium Chloride (Nacl 0.9% 1000 Ml) 1,000 mls @ 100 mls/hr IV DIRECT [facility] Insulin Human Lispro (Humalog) 0 unit SUB-Q [facility]; Protocol Last Admin: 06/20/19 22:31 Dose: Not Given Documented by: Metoprolol Tartrate (Lopressor) 25 mg PO BID [facility] Ondansetron HCl (Zofran Odt) 4 mg PO Q6H PRN PRN Reason: Nausea And Vomiting Last Admin: 06/09/19 12:12 Dose: 4 mg Documented by: Ondansetron HCl (Zofran) 4 mg IV Q8H PRN PRN Reason: Nausea And Vomiting Senna (Senokot) 8.6 mg PO Q12H PRN PRN Reason: Laxative Effect Verapamil HCl (Calan Sr) 240 mg PO DAILY [facility] Last Admin: 06/21/19 10:55 Dose: Not Given Documented by: Physical Examination - Vital Signs Vital Signs: Vital Signs Pulse BP 100 H 173/83 06/08/19 23:09 06/08/19 23:09 - Assessment Assessment Interval: Baseline - Level of Consciousness 1a. Level of Consciousness: arousable/minor stimuli - LOC Questions 1b. LOC Questions: answers 1 question correctly - LOC Command 1c. LOC Commands: performs tasks correctly - Best Gaze 2. Best Gaze: partial gaze palsy - Visual 3. Visual: no visual loss - Facial Palsy 4. Facial Palsy: unilateral complete paralysis - Motor Arm 5a. Motor Arm Left: no movement 5b. Motor Arm Right: no drift - Motor Leg 6a. Motor Leg Left: no gravity effort 6b. Motor Leg Right: no drift - Limb Ataxia 7. Limb Ataxia: absent - Sensory 8. Sensory: normal - Best Language 9. Best Language: mild/moderate aphasia - Dysarthria 10. Dysarthria: mild/moderate dysarthria - Extinction and Inattention 11. Extinction/Inattention: no abnormality - Scoring Total Score: 15 Stroke Severity: Moderate Stroke Results - Laboratory Findings CBC and BMP: 06/21/19 12:53 06/21/19 07:02 Abnormal Lab Findings: Abnormal Labs 06/09/19 06/09/19 06/10/19 04:41 04:41 06:56 WBC 3.3 L 3.1 L RBC 3.48 L 3.53 L Hgb 8.7 L 8.8 L Hct 26.9 L 27.7 L MCV 77 L MCH 25 L 25 L RDW 17.5 H 17.6 H Graves % (Auto) 13.7 H Eos % (Auto) 6.2 H Lymph # 1.0 L Seg Neutrophils # 1.7 L Chloride Carbon Dioxide BUN 28 H Creatinine 3.4 H POC Glucose Albumin 3.6 L HDL Cholesterol Folate 06/10/19 06/10/19 06/10/19 06:56 06:56 08:09 WBC RBC Hgb Hct MCV MCH RDW Graves % (Auto) Eos % (Auto) Lymph # Seg Neutrophils # Chloride Carbon Dioxide 21 L BUN 25 H Creatinine 3.3 H POC Glucose 69 L Albumin HDL Cholesterol 77 H Folate 5.58 L 06/11/19 06/12/19 06/12/19 07:06 07:48 07:48 WBC 3.4 L RBC Hgb 9.9 L Hct MCV MCH 25 L RDW 18.7 H Graves % (Auto) Eos % (Auto) Lymph # Seg Neutrophils # Chloride Carbon Dioxide BUN 24 H 22 H Creatinine 3.1 H 3.0 H POC Glucose Albumin HDL Cholesterol Folate 06/13/19 06/13/19 06/13/19 06:43 11:35 21:11 WBC RBC Hgb Hct MCV MCH RDW Graves % (Auto) Eos % (Auto) Lymph # Seg Neutrophils # Chloride Carbon Dioxide BUN 23 H Creatinine 3.2 H POC Glucose 131 H 110 H Albumin HDL Cholesterol Folate 06/14/19 06/14/19 06/14/19 06:53 06:53 07:30 WBC 3.1 L RBC 3.52 L Hgb 9.1 L Hct 27.6 L MCV 78 L MCH 26 L RDW 19.1 H Graves % (Auto) Eos % (Auto) Lymph # Seg Neutrophils # Chloride Carbon Dioxide BUN 24 H Creatinine 3.1 H POC Glucose 67 L Albumin HDL Cholesterol Folate 06/15/19 06/15/19 06/15/19 06:35 15:59 21:50 WBC RBC Hgb Hct MCV MCH RDW Graves % (Auto) Eos % (Auto) Lymph # Seg Neutrophils # Chloride 107.5 H Carbon Dioxide BUN 26 H Creatinine 3.3 H POC Glucose 121 H 274 H Albumin HDL Cholesterol Folate 06/16/19 06/16/19 06/17/19 07:41 15:38 06:02 WBC RBC Hgb Hct MCV MCH RDW Graves % (Auto) Eos % (Auto) Lymph # Seg Neutrophils # Chloride Carbon Dioxide BUN 26 H 30 H Creatinine 3.2 H 3.3 H POC Glucose 108 H Albumin HDL Cholesterol Folate 06/17/19 06/17/19 06/18/19 13:42 16:41 11:27 WBC RBC Hgb Hct MCV MCH RDW Graves % (Auto) Eos % (Auto) Lymph # Seg Neutrophils # Chloride Carbon Dioxide BUN Creatinine POC Glucose 151 H 108 H 111 H Albumin HDL Cholesterol Folate 06/18/19 06/18/19 06/18/19 16:51 22:04 Unknown WBC RBC Hgb Hct MCV MCH RDW Graves % (Auto) Eos % (Auto) Lymph # Seg Neutrophils # Chloride Carbon Dioxide BUN 33 H Creatinine 3.6 H POC Glucose 106 H 118 H Albumin HDL Cholesterol Folate 06/19/19 06/19/19 06/19/19 05:55 05:55 11:44 WBC 3.5 L RBC Hgb 9.5 L Hct 29.7 L MCV MCH 26 L RDW 20.1 H Graves % (Auto) Eos % (Auto) Lymph # Seg Neutrophils # Chloride Carbon Dioxide BUN 35 H Creatinine 3.4 H POC Glucose 144 H Albumin HDL Cholesterol Folate 06/19/19 06/19/19 06/20/19 16:39 21:35 06:06 WBC RBC Hgb Hct MCV MCH RDW Graves % (Auto) Eos % (Auto) Lymph # Seg Neutrophils # Chloride Carbon Dioxide BUN 35 H Creatinine 3.5 H POC Glucose 133 H 129 H Albumin HDL Cholesterol Folate 06/20/19 06/21/19 06/21/19 16:22 07:02 12:53 WBC 2.9 L RBC Hgb 9.6 L Hct 30.1 L MCV MCH 25 L RDW 20.0 H Graves % (Auto) Eos % (Auto) Lymph # Seg Neutrophils # Chloride Carbon Dioxide BUN 30 H Creatinine 3.3 H POC Glucose 108 H Albumin HDL Cholesterol Folate Assessment and Plan Date of Service 06/21/2019 [facility] Consult Services Comments: Last time known well: _ 06/20/19 19:00 Door time: _inpatient [employer] contacted: _[phone] [employer] at bedside: _16:04 NIHSS assessment time: _1617 consult end time: _1632 Impression: lethargy, ? vision loss, ? aphasia concerning for Acute Ischemic Stroke vs hypertensive encephalopathy/ hypertensive emergency Does meet Large Vessel Occlusion (LVO) screening criteria (Aphasia, Neglect, Gaze deviation/preference, Dense hemiparesis, or Visual field deficits on exam), therefore advanced imaging (CTA head and neck and CTP brain) is indicated. Differential Diagnosis: 1. Cardioembolic stroke 2. Small vessel disease/ lacune 3. Thromboembolic, [id number] mechanism 4. Hypercoagulable state-related infarct 5. Transient ischemic attack 6. Thrombotic mechanism, large artery disease tPA decision and other recommendations: _ Patient is not a tPA candidate Head CT did not show any acute hemorrhage. reviewed report (if available) and images Reason: _ last time known well>4.5 hours Based on the results of CTA head and neck and (if needed) CTP brain, will determine presence of Large Vessel Occlusion and eligibility for mechanical thrombectomy. Recommendations dysphagia screen ASA if no contraindications head of bed flat IV fluids NS Stroke work up with: noncontrast brain MRI,2D ECHO, lipid panel, HbA1c (Goal LDL<70, HbA1c<7) inpatient neurology consultation Inpatient stroke evaluation as per Neurology/ Internal Medicine Discussed with medical staff Please contact [employer] Navigator to reach me if further questions/concerns arise. ------ ------ Reason for Stroke Alert and History of Present Illness: _ Patient is a(n) 49 years old female, with history of hypertension, Multiple Sclerosis, [place] palsy, CVA (baseline weakness on the left) last known well: 06/20/19 19:00 since this morning has been complaining of vision impairment, also was seen drooling. Review of Systems: Constitutional: Negative except as documented in history of present illness. Eye: Negative except as documented in history of present illness. Ear/Nose/Mouth/Throat: Negative except as documented in history of present illness. Respiratory: Negative except as documented in history of present illness. Cardiovascular: Negative except as documented in history of present illness. Gastrointestinal: Negative except as documented in history of present illness. Musculoskeletal: Negative except as documented in history of present illness. Neurologic: Negative except as documented in history of present illness. Examination: NIHSS Details documented in the note ___ 15 (at least 11 points is chronic) -------- Medical Decision Making: - Extensive number of diagnosis or management options are considered above. - Extensive amount of complex data reviewed. - High risk of complication and/or morbidity or mortality are associated with differential diagnostic considerations above. - There may be Uncertain outcome and increased probability of prolonged functional impairment or high probability of severe prolonged functional impairment associated with some of these differential diagnoses. Medical Data Reviewed: 1.Data reviewed include clinical labs, radiology, Medical Tests; 2.Tests results discussed w/performing or interpreting physician; 3.Obtaining/reviewing old medical records; 4.Obtaining case history from another source; 5.Independent review of image, tracing or specimen. When possible Patient/family were informed the Neurology Consult would happen via TeleHealth consult by way of interactive audio and video telecommunications and consented to receiving care in this manner. Case discussed with the Medical staff. Critical Care notation: I was called to see this critical patient emergently. I personally evaluated this critical patient for acute stroke evaluation and determining their eligibility for IV Alteplase and interventional therapies. I have spent approximately _28_ minutes with the patient, including time at bedside, time discussing the case with other physicians, reviewing plan of care, and time independently reviewing the records and scans.
--- NOTE | 2019-06-21 16:37 | Cat Scan Report ---
CT BRAIN: 06/21/2019 at 1610 hours ET INDICATION / CLINICAL INFORMATION: CVA. COMPARISON: CT head 06/21/2019 at 0900 hours ET FINDINGS: BRAIN/INTRACRANIAL STRUCTURES: Unenhanced CT images of the brain were obtained and compared to a prev ious exam obtained 7 hours earlier. There has been no change. Again seen is prominent diffuse cerebral atrophy, extensive chronic white matter hypoattenuation. The re is also evidence of chronic lacunar changes in the right thalamus and right basal ganglia. There is no CT evidence of acute ischemic injury, hemorrhage, or mass. There are no abnormal extra-ax ial fluid collections. EXTRACRANIAL STRUCTURES: Unremarkable. IMPRESSION: No acute abnormality. Chronic and age-related changes. No change when compared to the previous exam from 7 hours earlier. CS notification at [address] scans at this location are performed using dose reduction to ALARA by means of automated expos ure control. Signer Name: Tyler Martinez MD Signed: 06/21/2019 4:33 PM Workstation Name: [id number]
[2019-06-21] MEDS ORDERED: APRESOLINE IV PRN (17:13)
[2019-06-21 17:49] VITALS: BP 178/87
--- NOTE | 2019-06-21 19:02 | Discharge Summary ---
Providers - Providers Date of Admission: 06/08/19 20:46 Date of discharge: 06/21/19 Attending physician: SAMUEL RANDALL III, MD 06/08/19 20:15 Occupational Therapy Evaluate and Treat [CONS] Routine Comment: Reason For Exam: ADL dysfunction Physical Therapy Evaluation and Treat [CONS] Routine Comment: Reason For Exam: Mobility Dysfunction Speech Therapy Evaluation and Treat [CONS] Routine Reason For Exam: CVA eval & treat 06/08/19 20:23 Consult to Case Management [CONS] Routine Services Needed at Discharge: Home Health Services Notified:: cm notified 06/16/19 11:07 Consult to Physician [CONS] Routine Comment: No prior prosthetist per pt Consulting Provider: JOSH NIELSEN Physician Instructions: Please eval CKD and renal effect on HTN, Thanks Reason For Exam: CKD and HTN Primary care physician: MEET IRVIN Hospitalization Reason for admission: CVA Condition: Poor Hospital course: 49-year-old female admitted to outside hospital with shortness of breath and dyspnea on exertion. She is found to have a CHF exacerbation and hypertensive urgency with blood pressure 211/104. Cardiology and nephrology consults were placed. Lasix was discontinued due to elevated creatinine and should be restarted once creatinine is less than 3. Patient's baseline creatinine is 2.1- 2.2. Fluid restriction was started at 15 mL per day. Clonidine and hydralazine were both discontinued patient was continued on labetalol and verapamil. She had to iron infusions. Uncertain why patient was taken off of statin but per patient and her PCP advised not to take it. She does have a history of CVA but was only on aspirin. States statin was stopped by RISK CONTROL FIELD REPRESENTATIVE due to pain in left shoulder which was more likely due to tone. Statin was restarted at outside Hospital. We'll discuss secondary stroke prevention with patient made sure that she and family understand her need to continue with the statin. Patient also has a history of relapsing remitting multiple sclerosis but has not had a flair in 3 years. States she has falls about once a week. Patient had Code Met called earlier. Head CT NEG for acute changes. On my exam she is lethargic, CN exam similar to prior exam. She is able to answer questions and follow commands. Appearance is that she had a bad reaction Baclofen which was started night at low dose. Vision and motor intact as before. Later, patient stated she could not see - Stat MRI brain was ordered but unavailable. A Code Stroke was called. Before the team arrived she was able to see again. She went for CT Head - neurologist wanted contrast but prosthetist could not approve given her renal function. Repeat CT head NEG. Stroke team was also team who responded to code met earlier and stated she looked much better and was more interactive than before. For safety, have made her NPO until she is more alert. Medications adjusted to IV. Spoke with father who came in just after we called code stroke. He states she would sleep for days after taking clonidine 0.3. She is only on 0.1 currently. Will d/c in case she is having a combined effect. If she is stable prior to my departure, I will keep on rehab floor with close monitoring. If not, will talk to hospitalist. D/C to hospitalist. Disposition: DC/- [facility] IP Time spent for discharge: <30 mins Core Measure Documentation - Palliative Care Palliative Care/ Comfort Measures: Not Applicable - Core Measures Any of the following diagnoses?: stroke - Stroke Discharge Requirements Statin for LDL = or >70 mg/dl on DC: Yes Anticoag for atrial fib/atrial flutter: Not Applicable Antithrombotic for ischemic stroke: Yes Exam - Physical Exam Narrative exam: MUSCULOSKELETAL SPECIALTY EXAM CONSTITUTIONAL: Well developed, well nourished, appropriately groomed. RIGHT hand dominant. RESPIRATORY: Clear to auscultation bilaterally, no increased work of breathing CARDIOVASCULAR: Regular Rate/ Rhythm, no swelling, edema or tenderness in BUE or BLE. All ext remities warm. GI: + bowel sounds, soft, NTTP, nondistended. INTEGUMENTARY: Normal, no lesion, rash, masses or bruising noted in extremities. MUSCULOSKELETAL: BUE and BLE normal without defect, crepitus, subluxation, effusion, arthritic changes or TTP. R 5/5 overall L 3/5 overall ROM decreased on LUE Tone increased in LUE, slightly better NEURO L facial droop, decreased initiation, AMS with perseveration Sensation intact in all extremities without extinction. No tremor noted in 4 extremities. Naming and repetition intact. Follows 1 step commands. Aphasia not appreciated Dysarthria not appreciated but she does have slowed maris when speaking Dysphagia not appreciated Neglect not appreciated POSTURE and GAIT: Not assessed due to condition PSYCH: Drowsy, AMS, affect appears anxious. - Constitutional Vitals: Temp Pulse Resp BP Pulse Ox 36.7 C 74 18 178/87 98 06/21/19 15:37 06/21/19 15:37 06/21/19 15:37 06/21/19 15:37 06/21/19 15:37 Plan Activity: advance as tolerated, fall precautions Diet: diabetic Durable Medical Equipment Needed Upon Discharge: Cane-Quad Follow up with: MEET IRVIN MD [Primary Care Provider] - 7 Days
[2019-06-21] MEDS ORDERED: LOPRESSOR PO SCH (22:00)
== END 2019-06-21 20:09 | disposition short-term general hospital (02) | DRG 64 ==
LOC: UNDOADMIN 20:05 → 3A 20:05 → 3B 20:46 → CC1 06-21 19:02 → 3B 06-21 19:52
PROVIDERS: ADMIT Physical Medicine & Rehabilitation; ATTEND Physical Medicine & Rehabilitation
DX: I63.9 Cerebral infarction, unspecified (principal); I50.43 Acute on chronic combined systolic (congestive) and diastolic (congestive) heart failure; I13.0 Hypertensive heart and chronic kidney disease with heart failure and stage 1 through stage 4 chronic kidney disease, or unspecified chronic kidney disease; N18.4 Chronic kidney disease, stage 4 (severe); G81.94 Hemiplegia, unspecified affecting left nondominant side; E78.00 Pure hypercholesterolemia, unspecified; N17.9 Acute kidney failure, unspecified; R53.81 Other malaise; I16.0 Hypertensive urgency; E11.22 Type 2 diabetes mellitus with diabetic chronic kidney disease; Z90.49 Acquired absence of other specified parts of digestive tract; Z82.3 Family history of stroke; Z83.3 Family history of diabetes mellitus; Z82.49 Family history of ischemic heart disease and other diseases of the circulatory system; Z87.891 Personal history of nicotine dependence; Z88.6 Allergy status to analgesic agent; Z88.8 Allergy status to other drugs, medicaments and biological substances; Z79.82 Long term (current) use of aspirin; Z73.6 Limitation of activities due to disability; Z79.84 Long term (current) use of oral hypoglycemic drugs
CPT/HCPCS: 36415; 70450; 71045; 74018; 80048; 80053; 80061; 82607; 82747; 82962; 83036; 83550; 85025; 85027; 93005; 93010; G0378; A9270-GY; J0360; J1644; J1815; J1940; J7030; Q0162

== ENCOUNTER 2019-06-21 19:57 | Inpatient (IN) | payer MEDICAID ==
[2019-06-21] MEDS ORDERED: SODIUM CHLORIDE FLUSH SYRINGE 10 ML IV PRN (20:11)
[2019-06-21] MEDS ORDERED: PROVENTIL IH PRN (20:11)
--- NOTE | 2019-06-21 20:11 | History and Physical Report ---
History of Present Illness Chief complaint: My blood pressure is high History of present illness: 49 YO Female with DM, CHF, HTN, CKD, CVA complicated by Debility admitted to Inpatient Rehab Unit. Consult placed by Dr. Singh. Pt found to have Uncontrolled blood pressure over the past 2 days with the development of co nfusion upon evaluation 2 days ago with persistent symptoms over the past 12 hours. Pt seen and evaluated in her room and found to have Hypertensive Emergency with SBP >200 on current antihypertensive therapy regimen, as well as Encephalopathy. Pt discharged from IRU and admitted to IMCU. Pt initiated on CArdene drip. Pt is lethargic at time of exam and unable to provide detailed history. Pt father is at bedside and reports changes in mental status since his last visit 5 days ago. No further history obtainable. Past History Past Medical History: anemia, diabetes, heart failure, stroke Past Surgical History: cholecystectomy Social history: . denies: smoking, alcohol abuse, prescription drug abuse Family history: diabetes, hypertension Medications and Allergies Allergies Allergy/AdvReac Type Severity Reaction Status Date / Time amlodipine besylate Allergy Vomiting Verified 01/21/14 20:31 [From Norvasc] hydromorphone HCl Allergy Vomiting Verified 01/21/14 20:31 [From Dilaudid] lisinopril Allergy Unknown Verified 01/21/14 20:31 Home Medications Medication Instructions Recorded Confirmed Last Taken Type Acetaminophen [Acetaminophen TAB] 650 mg PO Q4H PRN 30 Days tablet 06/21/19 Unknown Rx Aspirin EC 325 mg PO QDAY 30 Days tablet 06/21/19 Unknown Rx AtorvaSTATin [Lipitor] 40 mg PO QHS 30 Days tablet 06/21/19 Unknown Rx Bisacodyl [Dulcolax suppos] 10 mg [place] QDAY PRN 30 Days 06/21/19 Unknown Rx supp.rect Dextrose 50% in Water [D50W (25GM) 50 ml IV PRN PRN 30 Days syringe 06/21/19 Unknown Rx Syringe] Ferrous Sulfate [Feosol 325 MG tab] 325 mg PO QDAY tablet 06/21/19 Unknown Rx Folic Acid [Folvite] 1 mg PO QDAY tablet 06/21/19 Unknown Rx Lispro Insulin [HumaLOG] 0 unit SUB-Q ACHS units 06/21/19 Unknown Rx Ondansetron [Zofran ODT TAB] 4 mg PO Q6H PRN 30 Days tab.rapdis 06/21/19 Unknown Rx Sennosides Tab [Senokot] 8.6 mg PO Q12H PRN tablet 06/21/19 Unknown Rx Sodium Chloride 0.9% 1000 ml [NaCl 100 ml IV DIRECT #1 bag 06/21/19 Unknown Rx 0.9 1000 ML] Verapamil Sr [Calan SR] 240 mg PO DAILY tablet 06/21/19 Unknown Rx hydrALAZINE [Apresoline INJ] 10 mg IV Q3H PRN vial 06/21/19 Unknown Rx Review of Systems ROS unobtainable: due to mental status Exam - Constitutional General appearance: Present: mild distress - EENT Eyes: Present: miosis (Periorbital edema bilaterally) ENT: hearing intact, clear oral mucosa - Neck Neck: Present: supple, normal ROM - Respiratory Respiratory effort: normal Respiratory: bilateral: CTA - Cardiovascular Heart Sounds: Present: S1 & S2. Absent: rub, click - Extremities Extremities: pulses symmetrical, No edema Peripheral Pulses: within normal limits - Abdominal General gastrointestinal: Present: soft, non-tender, non-distended, normal bowel sounds Female genitourinary: Present: normal - Integumentary Integumentary: Present: clear, warm, dry - Musculoskeletal Musculoskeletal: gait normal, strength equal bilaterally - Psychiatric Psychiatric: no appropriate mood/affect, no intact judgment & insight, no memory intact - Neurologic Neurologic: CNII-XII intact, moves all extremities Assessment and Plan - Patient Problems (1) Hypertensive emergency Current Visit: No Status: Acute Plan to address problem: Pt admitted to [facility]. Pt initiated on cardene drip, with goal systolic overnight between 140-160, monitor bp q shift, (2) Encephalopathy Current Visit: Yes Status: Acute Plan to address problem: CT Head, Neuro checks, supportive care, (3) Acute kidney injury superimposed on chronic kidney disease Current Visit: No Status: Acute Plan to address problem: Nephrology consulted, supportive care, avoid nephrotoxic agents, monitor uop q shift, serial bmp to monitor serum creatnine changes. (4) CHF (congestive heart failure) Current Visit: Yes Status: Acute Qualifiers: Heart failure chronicity: chronic Plan to address problem: Strict I/O, daily weight, monitor uop q shift, blood pressure control, afterload reduction, pulse oximetry, supplemental oxygen. (5) Diabetes Current Visit: No Status: Acute Plan to address problem: ADA diet, insulin, accu check, hypoglycemia protocol (6) DVT prophylaxis Current Visit: Yes Status: Acute Plan to address problem: SCD to BLE while in bed,
[2019-06-21] MEDS ORDERED: DULCOLAX PR PRN (20:13)
[2019-06-21] MEDS ORDERED: ZOFRAN ODT PO PRN (20:13)
[2019-06-21] MEDS ORDERED: D50W (25GM) Syringe IV PRN (20:13)
[2019-06-21] MEDS ORDERED: TYLENOL PO PRN (20:13)
[2019-06-21] MEDS ORDERED: SENOKOT PO PRN (20:13)
[2019-06-21] MEDS: CARDENE 50 MG in NACL 0.9% 250ML 230 ML IV SCH (22:26)
[2019-06-21] MEDS ORDERED: PROTONIX IV SCH (23:00)
[2019-06-21] MEDS: REGLAN IV SCH (23:04)
[2019-06-21] MEDS: SODIUM CHLORIDE FLUSH SYRINGE 10 ML IV SCH (23:04)
[2019-06-22] MEDS: CARDENE 50 MG in NACL 0.9% 250ML 230 ML IV SCH ×4 (02:19→16:45)
[2019-06-22] MEDS: REGLAN IV SCH ×3 (06:18→17:53)
[2019-06-22] MEDS ORDERED: ECOTRIN PO SCH (10:00)
[2019-06-22] MEDS ORDERED: PROTONIX IV SCH (10:00)
[2019-06-22] MEDS: SODIUM CHLORIDE FLUSH SYRINGE 10 ML IV SCH ×2 (10:24→21:04)
[2019-06-22] MEDS: FEOSOL PO SCH (10:46)
[2019-06-22] MEDS: FOLVITE PO SCH (10:47)
--- NOTE | 2019-06-22 11:35 | Consultation ---
History of Present Illness Consult date: 06/22/19 Requesting physician: ALONSO CARBONE Reason for consult: other (Hypertensive Emergency) History of present illness: PULMONARY/CCM CONSULT NOTE (Full dictation # [id number]) Please see dictated notes for full details Past History Past Medical History: anemia, diabetes, heart failure, stroke Past Surgical History: cholecystectomy Social history: . denies: smoking, alcohol abuse, prescription drug abuse Family history: diabetes, hypertension Medications and Allergies Allergies Allergy/AdvReac Type Severity Reaction Status Date / Time amlodipine besylate Allergy Vomiting Verified 01/21/14 20:31 [From Norvasc] hydromorphone HCl Allergy Vomiting Verified 01/21/14 20:31 [From Dilaudid] lisinopril Allergy Unknown Verified 01/21/14 20:31 Home Medications Medication Instructions Recorded Confirmed Last Taken Type Acetaminophen [Acetaminophen TAB] 650 mg PO Q4H PRN 30 Days tablet 06/21/19 Unknown Rx Aspirin EC 325 mg PO QDAY 30 Days tablet 06/21/19 Unknown Rx AtorvaSTATin [Lipitor] 40 mg PO QHS 30 Days tablet 06/21/19 Unknown Rx Bisacodyl [Dulcolax suppos] 10 mg [place] QDAY PRN 30 Days 06/21/19 Unknown Rx supp.rect Dextrose 50% in Water [D50W (25GM) 50 ml IV PRN PRN 30 Days syringe 06/21/19 Unknown Rx Syringe] Ferrous Sulfate [Feosol 325 MG tab] 325 mg PO QDAY tablet 06/21/19 Unknown Rx Folic Acid [Folvite] 1 mg PO QDAY tablet 06/21/19 Unknown Rx Lispro Insulin [HumaLOG] 0 unit SUB-Q ACHS units 06/21/19 Unknown Rx Ondansetron [Zofran ODT TAB] 4 mg PO Q6H PRN 30 Days tab.rapdis 06/21/19 Unknown Rx Sennosides Tab [Senokot] 8.6 mg PO Q12H PRN tablet 06/21/19 Unknown Rx Sodium Chloride 0.9% 1000 ml [NaCl 100 ml IV DIRECT #1 bag 06/21/19 Unknown Rx 0.9 1000 ML] Verapamil Sr [Calan SR] 240 mg PO DAILY tablet 06/21/19 Unknown Rx hydrALAZINE [Apresoline INJ] 10 mg IV Q3H PRN vial 06/21/19 Unknown Rx Active Meds: Active Medications Acetaminophen (Tylenol) 650 mg PO Q4H PRN PRN Reason: Pain MILD(1-3)/Fever >100.5/GALLARDO Albuterol (Proventil) 2.5 mg IH Q3HRT PRN PRN Reason: Shortness Of Breath Aspirin (Ecotrin) 325 mg PO QDAY [facility] Last Admin: 06/22/19 10:46 Dose: Not Given Documented by: Atorvastatin Calcium (Lipitor) 40 mg PO QHS [facility] Last Admin: 06/21/19 21:12 Dose: Not Given Documented by: Bisacodyl (Dulcolax) 10 mg [place] QDAY PRN PRN Reason: Constipation unrelieved by MOM Dextrose (D50w (25gm) Syringe) 50 ml IV PRN PRN PRN Reason: Hypoglycemia Ferrous Sulfate (Feosol) 325 mg PO QDAY [facility] Last Admin: 06/22/19 10:46 Dose: Not Given Documented by: Folic Acid (Folvite) 1 mg PO QDAY [facility] Last Admin: 06/22/19 10:47 Dose: Not Given Documented by: Hydralazine HCl (Apresoline) 10 mg IV Q3H PRN PRN Reason: Hypertension Nicardipine HCl 50 mg/ Sodium (Chloride) 250 mls @ 25 mls/hr IV TITR [facility]; Protocol Last Admin: 06/22/19 10:22 Dose: 10 mg/hr, 50 mls/hr Documented by: Metoclopramide HCl (Reglan) 5 mg IV Q6HR [facility] Last Admin: 06/22/19 06:18 Dose: 5 mg Documented by: Ondansetron HCl (Zofran Odt) 4 mg PO Q6H PRN PRN Reason: Nausea And Vomiting Last Admin: 06/21/19 21:39 Dose: 4 mg Documented by: Pantoprazole Sodium (Protonix) 40 mg IV DAILY [facility] Last Admin: 06/22/19 10:23 Dose: 40 mg Documented by: Senna (Senokot) 8.6 mg PO Q12H PRN PRN Reason: Laxative Effect Sodium Chloride (Sodium Chloride Flush Syringe 10 Ml) 10 ml IV BID [facility] Last Admin: 06/22/19 10:24 Dose: 10 ml Documented by: Sodium Chloride (Sodium Chloride Flush Syringe 10 Ml) 10 ml IV PRN PRN PRN Reason: LINE FLUSH Physical Examination Vital signs: Vital Signs Pulse Resp BP Pulse Ox 81 19 198/91 98 06/21/19 19:30 06/21/19 19:30 06/21/19 19:30 06/21/19 19:30
--- NOTE | 2019-06-22 12:21 | Progress Note ---
Assessment and Plan Assessment and plan: 49-year-old woman presents to the hospital shows breath from inpatient rehabilitation unit for confusion and elevated blood pressure with systolic BP over 200 pmh; anemia, diabetes, heart failure, stroke, hypertension, COPD, CVA for which she was in rehabilitation Hypertensive emergency Has been on Cardene drip, we'll try to transition to oral medications Hypertensive encephalopathy Improving as blood pressure comes down CKD stage 4 Creat is at baseline, unchanged, avoid nephrotoxins nephrology consult hx of DM appears to be in remission, as patient a1c is 4.9 last month, she has had normal a1c of < 6 since 2017 no need for insulins at this time moderate protein malnutrition dietitican consult Diastolic CHF keep euvolemic dypshagia SS consulted depression, MH consult DVT prophylaxis critical care time 35 minutes History Interval history: continues to feel sad all the time Review of systems Constitutional: No fevers, no malaise, no joint pains CVS: No chest pain, no orthopnea, no dyspnea on exertion, no pedal edema GI: No abdominal pain, no diarrhea, no vomiting, no constipation Respiratory: no wheezing, no coughing Hospitalist Physical - Physical exam Narrative exam: General.: Appears well, no distress, nontoxic HEENT: Moist mucous membranes, extraocular muscles intact, no lymphadenopathy Neck: supple Cardiac: S1-S2 heard Lungs: clear to auscultation bilaterally Abdomen: soft , nontender, nondistended, bowel sounds positive Extremities: no edema clubbing or cyanosis Skin: no rash or lesions Neurologic: L hemiplegia Psych: depressed - Constitutional Vitals: Temp Pulse Resp BP Pulse Ox 97.5 F L 89 15 158/70 99 06/22/19 08:00 06/22/19 11:00 06/22/19 11:00 06/22/19 11:00 06/22/19 11:00 General appearance: Present: mild distress Results - Labs CBC & Chem 7: 06/23/19 05:36 Active Medications - Current Medications Current Medications: Generic Name Dose Route Start Last Admin Trade Name Freq PRN Reason Stop Dose Admin Acetaminophen 650 mg 06/21/19 20:13 Tylenol PO Q4H PRN Pain MILD(1-3)/Fever >100.5/GALLARDO Albuterol 2.5 mg 06/21/19 20:11 Proventil IH Q3HRT PRN Shortness Of Breath Aspirin 325 mg 06/22/19 10:00 06/22/19 10:46 Ecotrin PO Not Given QDAY [facility] Atorvastatin Calcium 40 mg 06/21/19 22:00 06/21/19 21:12 Lipitor PO Not Given QHS [facility] Bisacodyl 10 mg 06/21/19 20:13 Dulcolax [place] QDAY PRN Constipation unrelieved by MOM Clonidine HCl 0.1 mg 06/22/19 14:00 Catapres PO Q8HR [facility] Dextrose 50 ml 06/21/19 20:13 D50w (25gm) Syringe IV PRN PRN Hypoglycemia Ferrous Sulfate 325 mg 06/22/19 10:00 06/22/19 10:46 Feosol PO Not Given QDAY [facility] Folic Acid 1 mg 06/22/19 10:00 06/22/19 10:47 Folvite PO Not Given QDAY [facility] Heparin Sodium (Porcine) 5,000 unit 06/22/19 22:00 Heparin SUB-Q Q12HR [facility] Hydralazine HCl 10 mg 06/21/19 20:13 Apresoline IV Q3H PRN Hypertension Hydralazine HCl 10 mg 06/22/19 13:00 Apresoline IV 06/24/19 12:59 Q4H [facility] Hydralazine HCl 100 mg 06/22/19 14:00 Apresoline PO TID [facility] Nicardipine HCl 50 mg/ Sodium 250 mls @ 25 mls/hr 06/21/19 21:00 06/22/19 10:22 Chloride IV 10 mg/hr TITR [facility] 50 mls/hr Administration Protocol 5 MG/HR Metoclopramide HCl 5 mg 06/21/19 23:00 06/22/19 06:18 Reglan IV 5 mg Q6HR [facility] Administration Ondansetron HCl 4 mg 06/21/19 20:13 06/21/19 21:39 Zofran Odt PO 4 mg Q6H PRN Administration Nausea And Vomiting Pantoprazole Sodium 40 mg 06/22/19 10:00 06/22/19 10:23 Protonix IV 40 mg DAILY [facility] Administration Senna 8.6 mg 06/21/19 20:13 Senokot PO Q12H PRN Laxative Effect Sodium Chloride 10 ml 06/21/19 22:00 06/22/19 10:24 Sodium Chloride Flush Syringe 10 Ml IV 10 ml BID [facility] Administration Sodium Chloride 10 ml 06/21/19 20:11 Sodium Chloride Flush Syringe 10 Ml IV PRN PRN LINE FLUSH Verapamil HCl 240 mg 06/22/19 13:00 Calan Sr PO DAILY [facility]
[2019-06-22] MEDS ORDERED: CALAN SR PO SCH ×2 (13:00→14:00)
[2019-06-22] MEDS: APRESOLINE IV SCH ×3 (13:14→20:46)
[2019-06-22] MEDS: APRESOLINE PO SCH ×3 (15:00→20:48)
[2019-06-22] MEDS: CATAPRES PO SCH ×2 (15:00→21:03)
--- NOTE | 2019-06-22 19:32 | XRay Report ---
ABDOMEN 1 VIEW(S) INDICATION / CLINICAL INFORMATION: dobhoff placement. COMPARISON: None available. FINDINGS: TUBES / LINES: Feeding tube tip at second portion of the duodenum. BOWEL GAS PATTERN: No significant abnormality. Colonic stool is moderate. ADDITIONAL FINDINGS: No significant additional findings. Signer Name: Josse Branch MD Signed: 06/22/2019 7:28 PM Workstation Name: [id number]
[2019-06-22] MEDS: HEPARIN SUB-Q SCH (21:03)
[2019-06-23] MEDS: REGLAN IV SCH ×4 (00:13→17:08)
[2019-06-23] MEDS: APRESOLINE IV SCH ×6 (00:19→20:30)
[2019-06-23] MEDS: CARDENE 50 MG in NACL 0.9% 250ML 230 ML IV SCH ×2 (01:57→05:23)
[2019-06-23] MEDS: APRESOLINE IV PRN (03:17)
[2019-06-23] MEDS: CATAPRES PO SCH ×3 (06:31→22:20)
[2019-06-23 06:34] LABS: Calcium 9.5 mg/dL (8.4-10.2)
[2019-06-23] MEDS: APRESOLINE PO SCH ×3 (08:06→19:46)
[2019-06-23] MEDS ORDERED: ASPIRIN ONE (08:59)
[2019-06-23] MEDS ORDERED: PREVACID SOLUTAB FEEDTUBE ONE (08:59)
[2019-06-23] MEDS: FEOSOL PO SCH (09:03)
[2019-06-23] MEDS: ASPIRIN PO SCH (09:03)
[2019-06-23] MEDS: HEPARIN SUB-Q SCH ×2 (09:03→22:19)
[2019-06-23] MEDS: SODIUM CHLORIDE FLUSH SYRINGE 10 ML IV SCH ×2 (09:03→22:20)
[2019-06-23] MEDS: PREVACID SOLUTAB FEEDTUBE SCH (09:03)
[2019-06-23] MEDS: FOLVITE PO SCH (09:03)
[2019-06-23] MEDS: CALAN PO SCH ×2 (09:26→17:14)
--- NOTE | 2019-06-23 10:04 | Consultation ---
PULMONARY CRITICAL CARE CONSULT CONSULTING PHYSICIAN: Dr. Griffith. REASON FOR CONSULTATION: Hypertensive emergency. CHIEF COMPLAINT AND HISTORY OF PRESENT ILLNESS: The patient is a 49-year-old -Mexican female with past medical history significant, amongst other things, for a prior cerebrovascular accident complicated with left hemiparesis and debility, mild cognitive dysfunction as a result of that and hypertension. She was admitted initially to the inpatient rehabilitation unit and had been found to have [id number] blood pressure in the preceding couple of days. On the day of consult, she developed confusion. The symptoms did not improve over the preceding 12 hours. She was found to have systolic blood pressures greater than 200 mmHg, this despite her current antihypertensive regimen at that time. She was also with an acute encephalopathy. She was admitted to the Intensive Care Unit. We are asked to assist with management. When I stopped by to see her, she was resting in bed, a little bit more coherent, complained of a little bit of chest pain and pointing to the left side. She also admitted to an episode of nausea earlier in the day and vomiting. She denied any headache at the time of my evaluation. Really could not give much more than that kind of simple history. She is not a current tobacco abuser. Remote history is unknown. This really is as much of the history of presentation as I have. PAST MEDICAL HISTORY: Anemia, diabetes, cardiomyopathy, prior cerebrovascular accident. She is obese. PAST SURGICAL HISTORY: She has had a cholecystectomy according to the records. MEDICATIONS: She was on at the time I stopped by to see her were reviewed. Pertinent medications included the following: Tylenol 650 mg p.o. q.4 hours p.r.n. mild pain or fevers, albuterol 2.5 mg nebulized q.3 hours p.r.n. shortness of breath, aspirin 325 mg p.o. daily, Lipitor 40 mg p.o. at bedtime, Dulcolax 10 mg per rectum daily, Feosol, ferrous sulfate 325 mg p.o. daily, folic acid 1 mg p.o. daily, Reglan 5 mg IV q.6 hours scheduled, nicardipine drip was going at 10 mg per hour, and Zofran 4 mg p.o. q.6 hours p.r.n. nausea and vomiting. ALLERGIES: NORVASC, HYDROMORPHONE and LISINOPRIL, nature of this allergy is unknown. DIET: Obese lady, acute weight loss or gain history is unknown. FAMILY AND SOCIAL HISTORY: It is unclear where she was residing before this admission. She is described as being . She denied current alcohol, tobacco or illicit drug use or abuse. Remote history is unknown. There is a reported family history of diabetes and hypertension. REVIEW OF SYSTEMS: Unobtainable really secondary to the patient's medical and mental condition. Since she has been here, no gross hematochezia or melena, no gross hematuria. She denies dysuria. No hematemesis. She has had vomiting. No hemoptysis and no witnessed seizures. Review of systems otherwise unobtainable or as in the body of history above. PHYSICAL EXAMINATION: VITAL SIGNS: At initial presentation in the hospital, at least our first temperature here was 98.7 degrees Fahrenheit with a pulse of 81, respiratory rate of 19 and blood pressure of 198/91. O2 sats were 98%, inspired oxygen concentration at that time was not recorded. When I stopped by to see her, O2 sats were 99% and that was on room air. GENERAL: She is a middle-aged slightly obese -Mexican female, normocephalic, atraumatic, talking to me with an aphasia that was not due to respiratory distress. HEAD, EYES, EARS, NOSE AND THROAT: She is anicteric. No conjunctival erythema. Oropharynx is moist. Mallampati #2 oropharynx. No gross jugular venous distention. No thyromegaly. Grossly, no palpable lymph nodes in the supraclavicular or submandibular lymph node chains. LUNGS: Auscultation of both lung farr unremarkable. Lungs are clear bilaterally with good bilateral air movement. HEART: Heart sounds 1 and 2 are heard. They were regular rate and rhythm at the time of my evaluation without overt rubs or murmurs. ABDOMEN: Soft, full, bowel sounds are positive, nontender, no palpable hepatosplenomegaly. EXTREMITIES: Without overt digital clubbing, no cyanosis, no pedal edema. Pedal pulses were 2+ bilaterally. NEUROLOGIC: Pupils were equal, round, about 4 mm, reactive to light. Extraocular muscles and movements appeared to be intact. She had contractures in particular, I believe, to the left upper extremity. She had left hemiparesis. Power was about 2-3/5 on the left side as against 5/5 on the right side. SKIN: The skin was of normal turgor without overt cellulitis or rash. PSYCHIATRIC: Her mood was normal. Her affect appeared a little bit anxious at times. LABORATORY DATA: From my review are as follows: Laboratory data from admission on 06/08/2019: White cell count was 3.3, hemoglobin was 8.7, hematocrit was 26.9, platelet count was 257. Serum sodium was 141, potassium 4.1, chloride 107, bicarbonate 23, BUN 28, creatinine 3.4, and a glucose of 84. Liver function tests were essentially within normal limits. Most recent blood work is from yesterday. White count is low at 2.9, hemoglobin 9.6, hematocrit 30.1, platelet count 270. BUN is 30, creatinine is 3.3. I do not have any microbiology studies for review. I have a CT scan of the head that was done yesterday. It was read as no acute intracranial abnormality. She did have the chronic microangiopathy and lacunar infarct as well as a right thalamic infarct that is described as being unchanged. She also had a chest x-ray as well as a KUB. I have reviewed the chest x-ray. There is definitely cardiomegaly; however, otherwise no acute process. Blunting of the left costophrenic angle probably related to left heart border as well as soft tissue shadows. I cannot rule out a small pleural effusion in there. The x-ray of her abdomen and pelvis, to me, appeared unremarkable. ASSESSMENT: 1. Hypertensive emergency, now on a Cardene drip. 2. Acute encephalopathy. 3. History of diabetes. 4. Acute possibly on chronic kidney injury. 5. Anemia that is normocytic. 6. Cardiomyopathy. 7. History of cerebrovascular accident. PLAN: We will continue the Cardene drip; however, I am going to reintroduce some of her oral medications. We will resume clonidine at 0.1 mg p.o. t.i.d. We will also resume hydralazine 100 mg p.o. q.8 hours with hold parameters for systolic less than 100. The leukopenia cause is unclear. I will get a lactate and CRP level to evaluate for possible occult sepsis as a contributing factor. We will follow clinically otherwise. We will continue iron supplementation. Bedside dysphagia screen will be done, and if she passes, oral diet will be resumed, if not, we will consult ST. We will institute DVT prophylaxis with heparin considering her renal issues as well as Pepcid for GI prophylaxis. We will give her some p.r.n. Tylenol for mild pain or fevers and p.r.n. Percocet for moderate to severe pain. I will also schedule in the next 24 hours hydralazine 10 mg IV q.4 hours scheduled with hold parameters for systolic less than 150. Flu and pneumonia vaccination will be addressed per protocol. Thank you very much for the consult, Dr. Sharpe. We will follow along and make further recommendations as picture progresses/becomes clearer. JOB# [id number] LUIS/MONY DENISE
--- NOTE | 2019-06-23 10:14 | Consultation ---
History of Present Illness - Reason for Consult Consult date: 06/23/19 chronic renal failure, accelerated hypertension Requesting physician: ALONSO CARBONE - History of Present Illness This is a 49 y/o AAF with PMHx of CKD III/IV in the setting of DM, HTN, CHF, with h/o of CVA and residual right sided weakness, initially presented to inpatient rehab on 06/09/19 post admission for acute on chronic CHF exacerbation at an outside hospital. Patient was seen by a nephrology group at [facility] during previous admission, for CHENCHO on CKD secondary to cardiorenal syndrome/heart failure. Patient was appropriately/aggressively diuresed, but secondary to worsening renal function her diuretic regimen was discontinued. Nephrology is consulted here for further management. over the last few days pt was found to have uncontrolled BP and on 06/21 SBP was > 200mmHg despite adjusting oral BP regimen along with evidence of encephalopathy. Pt was discharged from IRU and admitted to IMCU and was initiated on cardene gtt. renal consult requested for management of CKD. pt is poor historian, not able to give any detailed history. History obtained by chart review. Past History Past Medical History: anemia, diabetes, heart failure, stroke Past Surgical History: cholecystectomy Social history: . denies: smoking, alcohol abuse, prescription drug abuse Family history: diabetes, hypertension Medications and Allergies Allergies Allergy/AdvReac Type Severity Reaction Status Date / Time amlodipine besylate Allergy Vomiting Verified 01/21/14 20:31 [From Norvasc] hydromorphone HCl Allergy Vomiting Verified 01/21/14 20:31 [From Dilaudid] lisinopril Allergy Unknown Verified 01/21/14 20:31 Home Medications Medication Instructions Recorded Confirmed Last Taken Type Acetaminophen [Acetaminophen TAB] 650 mg PO Q4H PRN 30 Days tablet 06/21/19 Unknown Rx Aspirin EC 325 mg PO QDAY 30 Days tablet 06/21/19 Unknown Rx AtorvaSTATin [Lipitor] 40 mg PO QHS 30 Days tablet 06/21/19 Unknown Rx Bisacodyl [Dulcolax suppos] 10 mg LA QDAY PRN 30 Days 06/21/19 Unknown Rx supp.rect Dextrose 50% in Water [D50W (25GM) 50 ml IV PRN PRN 30 Days syringe 06/21/19 Unknown Rx Syringe] Ferrous Sulfate [Feosol 325 MG tab] 325 mg PO QDAY tablet 06/21/19 Unknown Rx Folic Acid [Folvite] 1 mg PO QDAY tablet 06/21/19 Unknown Rx Lispro Insulin [HumaLOG] 0 unit SUB-Q ACHS units 06/21/19 Unknown Rx Ondansetron [Zofran ODT TAB] 4 mg PO Q6H PRN 30 Days tab.rapdis 06/21/19 Unknown Rx Sennosides Tab [Senokot] 8.6 mg PO Q12H PRN tablet 06/21/19 Unknown Rx Sodium Chloride 0.9% 1000 ml [NaCl 100 ml IV DIRECT #1 bag 06/21/19 Unknown Rx 0.9 1000 ML] Verapamil Sr [Calan SR] 240 mg PO DAILY tablet 06/21/19 Unknown Rx hydrALAZINE [Apresoline INJ] 10 mg IV Q3H PRN vial 06/21/19 Unknown Rx Active Meds: Active Medications Acetaminophen (Tylenol) 650 mg PO Q4H PRN PRN Reason: Pain MILD(1-3)/Fever >100.5/GALLARDO Albuterol (Proventil) 2.5 mg IH Q3HRT PRN PRN Reason: Shortness Of Breath Aspirin (Aspirin) 325 mg PO QDAY [facility] Last Admin: 06/23/19 09:03 Dose: 325 mg Documented by: Atorvastatin Calcium (Lipitor) 40 mg PO QHS [facility] Last Admin: 06/22/19 21:03 Dose: 40 mg Documented by: Bisacodyl (Dulcolax) 10 mg LA QDAY PRN PRN Reason: Constipation unrelieved by MOM Clonidine HCl (Catapres) 0.1 mg PO Q8HR [facility] Last Admin: 06/23/19 06:31 Dose: 0.1 mg Documented by: Dextrose (D50w (25gm) Syringe) 50 ml IV PRN PRN PRN Reason: Hypoglycemia Ferrous Sulfate (Feosol) 325 mg PO QDAY [facility] Last Admin: 06/23/19 09:03 Dose: 325 mg Documented by: Folic Acid (Folvite) 1 mg PO QDAY [facility] Last Admin: 06/23/19 09:03 Dose: 1 mg Documented by: Heparin Sodium (Porcine) (Heparin) 5,000 unit SUB-Q Q12HR [facility] Last Admin: 06/23/19 09:03 Dose: 5,000 unit Documented by: Hydralazine HCl (Apresoline) 10 mg IV Q3H PRN PRN Reason: Hypertension Last Admin: 06/23/19 03:17 Dose: 10 mg Documented by: Hydralazine HCl (Apresoline) 10 mg IV Q4H [facility] Stop: 06/24/19 12:59 Last Admin: 06/23/19 09:58 Dose: 10 mg Documented by: Hydralazine HCl (Apresoline) 100 mg PO TID [facility] Last Admin: 06/23/19 08:06 Dose: 100 mg Documented by: Nicardipine HCl 50 mg/ Sodium (Chloride) 250 mls @ 25 mls/hr IV TITR [facility]; Protocol Last Titration: 06/23/19 08:00 Dose: 7.5 mg/hr, 37.5 mls/hr Documented by: Lansoprazole (Prevacid Solutab) 30 mg FEEDTUBE QDAY [facility] Last Admin: 06/23/19 09:03 Dose: 30 mg Documented by: Metoclopramide HCl (Reglan) 5 mg IV Q6HR [facility] Last Admin: 06/23/19 06:31 Dose: 5 mg Documented by: Ondansetron HCl (Zofran Odt) 4 mg PO Q6H PRN PRN Reason: Nausea And Vomiting Last Admin: 06/21/19 21:39 Dose: 4 mg Documented by: Senna (Senokot) 8.6 mg PO Q12H PRN PRN Reason: Laxative Effect Sodium Chloride (Sodium Chloride Flush Syringe 10 Ml) 10 ml IV BID [facility] Last Admin: 06/23/19 09:03 Dose: 10 ml Documented by: Sodium Chloride (Sodium Chloride Flush Syringe 10 Ml) 10 ml IV PRN PRN PRN Reason: LINE FLUSH Verapamil HCl (Calan) 80 mg PO Q8H [facility] Last Admin: 06/23/19 09:26 Dose: 80 mg Documented by: Review of Systems ROS unobtainable: due to mental status Exam - Vital Signs Vital signs: Vital Signs Pulse Resp BP Pulse Ox 81 19 198/91 98 06/21/19 19:30 06/21/19 19:30 06/21/19 19:30 06/21/19 19:30 - General Appearance General appearance: well-developed, well-nourished, appears stated age EENT: ATNC, PERRL, mucous membranes moist Neck: Present: neck supple Respiratory: Clear to Ascultation Heart: regular, S1S2 Gastrointestinal: Present: normoactive bowel sounds Integumentary: no rash, other (no edema ) Neurologic: no focal deficit, alert and oriented x3 Results - Lab Results 06/23/19 05:36 Most recent lab results Calcium 9.5 mg/dL (8.4-10.2) 06/23/19 05:36 Assessment and Plan - Patient Problems (1) Acute kidney injury superimposed on chronic kidney disease Current Visit: No Status: Acute Plan to address problem: Kidney fxn is not significantly changed.. Follow-up electrolytes aand renal function (2) Hypertensive emergency Current Visit: No Status: Acute Plan to address problem: BP improved on cardene gtt. now transitioning to po BP regimen incl. hydralazine 100mg po tid, clonidine 0.1mg po tid, verapamil 80mg po q8hr. JUANITA-I/ARB on hold due to CHENCHO on CKD. Add lasix 40mg po qd for further BP/volume control (3) Systolic CHF, acute on chronic Current Visit: No Status: Chronic Plan to address problem: resume diuretics with lasix 40mg po qd (4) Type 2 diabetes mellitus with diabetic chronic kidney disease Current Visit: No Status: Chronic Plan to address problem: Blood sugar management by primary attending.
[2019-06-23] MEDS ORDERED: LASIX PO ONE (11:00)
--- NOTE | 2019-06-23 13:30 | Progress Note ---
Assessment and Plan Hypertensive emergency, now on a Cardene drip. Acute encephalopathy. History of diabetes. Acute possibly on chronic kidney injury. Anemia that is normocytic. Cardiomyopathy (HFpEF) H/O cerebrovascular accident Oropharyngeal Dysphagia H/O Depression - for MRI today (will follow) - continue secondary stroke prophylaxis - continue aspirin - continue lipitor - placed feeding tube and will begin oral medications - increased clonidine to 0.2mg q8h - neurology evaluation ongoing - fall precautions - continue to wean cardene drip for SBP < 150 mmHg - PT/OT consult placed - ST evaluation re: dysphagia - begin enetral nutrition at goal rate as tolerated - aspiration precautions - continue accucheck's with glycemic control. target blood glucose 140-180 mg/dL - continue to avoid nephrotoxins, adjust medications for CrCL and GFR - continue VTE prophylaxis with heparin; monitor for bleeding - continue Stress ulcer prophylaxis with Prevacid - PT/OT/ROM exercises as tolerated - continue mobility protocols for pressure ulcer prophylaxis - continue other care per attending / other consultants ..... re-evaluate in am & prn CONDITION: CRITICAL PROGNOSIS: GUARDED CODE STATUS: FULL The high probability of a clinically significant, sudden or life threatening deterioration of the [cardiovascular and neurologic] system(s) required my full and direct attention, intervention and personal management. The aggregate critical care time was [34] minutes. This time is in addition to time spent performing reported procedures but includes the following: [x] Data Review and interpretation [x]Patient assessment and monitoring of vital signs [x] Documentation [x] Medication orders and management Subjective Date of service: 06/23/19 Principal diagnosis: Hypertensive emergency; Acute encephalopathy; DM II; CHENCHO; CMOP; H/O CVA Interval history: Patient is seen today for: Hypertensive emergency on Cardene drip; Acute encephalopathy; History of diabetes; Acute possibly on chronic kidney injury; Anemia that is normocytic; Cardiomyopathy; H/O cerebrovascular accident. Seen and examined at bedside; 24hour events reviewed; nursing and respiratory care staff consulted; no adverse overnight events reported to me; resting peacefully in bed; lethargic today; back on caredene drip; failed swallow evaluation; just back from MRI; no reported seizures Objective Vital Signs - 12hr 06/23/19 06/23/19 06/23/19 02:00 03:00 03:13 Temperature 99.1 F Pulse Rate 97 H 92 H Pulse Rate [ None] Respiratory 15 14 Rate Blood Pressure Blood Pressure 141/64 147/63 [Left] O2 Sat by Pulse 98 96 Oximetry 06/23/19 06/23/19 06/23/19 03:17 04:00 05:00 Temperature Pulse Rate 94 H 95 H 95 H Pulse Rate [ None] Respiratory 15 17 Rate Blood Pressure 146/71 Blood Pressure 133/63 137/67 [Left] O2 Sat by Pulse 97 97 Oximetry 06/23/19 06/23/19 06/23/19 05:05 06:00 06:31 Temperature Pulse Rate 95 H 96 H 93 H Pulse Rate [ None] Respiratory 17 Rate Blood Pressure 151/63 147/70 Blood Pressure 151/71 [Left] O2 Sat by Pulse 97 Oximetry 06/23/19 06/23/19 06/23/19 07:00 08:00 09:26 Temperature 97.6 F Pulse Rate 93 H Pulse Rate [ 90 91 H None] Respiratory 15 16 Rate Blood Pressure 133/63 132/67 150/67 Blood Pressure [Left] O2 Sat by Pulse 97 97 Oximetry 06/23/19 09:58 Temperature Pulse Rate 83 Pulse Rate [ None] Respiratory Rate Blood Pressure 157/67 Blood Pressure [Left] O2 Sat by Pulse Oximetry Constitutional: no acute distress, other (middle aged AAF, normocephalic and atraumatic with mildly increased respiratory effort at rest) Eyes: non-icteric ENT: oropharynx moist, other (mallampati 3) Neck: supple, no lymphadenopathy, no JVD Effort: mildly labored Ascultation: Bilateral: clear, diminished breath sounds Percussion: Bilateral: not dull Cardiovascular: regular rate and rhythm Gastrointestinal: normoactive bowel sounds, soft, non-tender, non-distended Integumentary: normal Extremities: no cyanosis, no edema, pulses normal, no ischemia or petechiae Neurologic: pupils equal and round, CN II-XII normal, other (left hemiparesis) Psychiatric: other (flat affect) CBC and BMP: 06/24/19 04:05 06/24/19 04:05 Abnormal lab findings: Abnormal Labs 06/22/19 06/23/19 19:38 05:36 Chloride 107.7 H Carbon Dioxide 20 L BUN 34 H Creatinine 3.7 H Lactic Acid 0.50 L Chest x-ray: pending Allied health notes reviewed: nursing
[2019-06-23] MEDS ORDERED: PANCREAZE DR 10,500 UNIT FEEDTUBE PRN (14:31)
[2019-06-23] MEDS ORDERED: SIMPLE SYRUP FEEDTUBE PRN ×2 (14:31)
[2019-06-23] MEDS ORDERED: SODIUM BICARBONATE FEEDTUBE PRN (14:31)
--- NOTE | 2019-06-23 14:49 | Magnetic Resonance Report ---
MR BRAIN WITHOUT CONTRAST HISTORY: Stroke, worsening dysarthria, unable to swallow. TECHNIQUE: Multisequence, multiplanar MRI without IV gadolinium. COMPARISON: MR brain dated 06/10/2017. CT head dated 06/21/2019. FINDINGS: 3 small foci of diffusion restriction are identified. A 5 mm focus of diffusion restriction is identi fied in the head of the right caudate nucleus on diffusion image 20. A 5 mm foci of diffusion restric tion is identified in the left parietal/subependymal white matter on image 19. There is also a small linear area of diffusion restriction in the splenium of the left corpus callosum on images 18-19. There is moderate cortical volume loss particularly along the sylvian fissures. Moderate to severe T2 signal abnormalities are identified in the white matter bilaterally consistent with chronic microvas cular ischemic disease. A 1.4 x 0.7 focal chronic infarct is identified in the right zavala radiata. A 2.4 x 0.8 cm chronic infarct is identified in the inferior left cerebellum. There is no evidence for hemorrhage, mass, mass effect or extra-axial fluid collection. Ventricular size is within normal limits. The basal cisterns are patent. Orbital cavities and contents are unremarkable. There is mild mucosal thickening throughout all paranasal sinuses. The mastoid air cells are clear. IMPRESSION: 3. Small areas of subacute ischemia are identified in the head of the right caudate nucleus, left par ietal white matter and left splenium of the corpus callosum as described. Volume loss. Advanced chronic white matter changes. Chronic focal infarcts in the right zavala radiata and inferior left cerebellum. Signer Name: Apolinar Zayas Jr, MD Signed: 06/23/2019 2:45 PM Workstation Name: [id number]
--- NOTE | 2019-06-23 16:20 | Progress Note ---
Assessment and Plan Assessment and plan: Patient is 49-year-old woman with a history of anemia, diabetes, heart failure, stroke, hypertension, COPD, CVA with left side deficit for which she was in [facility] rehabilitation unit who was discharge to the acute Inpatient unit for confusion and elevated blood pressure with systolic BP over 200, inability to talk which began on the weekend per Dr. Singh. * MRI brain without contrast IMPRESSION: 3. Small areas of subacute ischemia are identified in the head of the right caudate nucleus, left parietal white matter and left splenium of the corpus callosum as described. Volume loss. Advanced chronic white matter changes. Chronic focal infarcts in the right zavala radiata and inferior left cerebellum. -New Acute Left ischemic stroke while in Rehab unit: treat with ASA and statin -Hypertensive emergency; Has been on Cardene drip, unable to transition to oral medications due inability to swallow -Acute metabolic Hypertensive encephalopathy: Improving as blood pressure comes down -CKD stage 4 Creat is at baseline, unchanged, avoid nephrotoxins, nephrology consult -hx of DM appears to be in remission, as patient a1c is 4.9 last month, she has had normal a1c of < 6 since 2017, no need for insulins at this time -moderate protein malnutrition, dietitican consult -Diastolic CHF by history; keep euvolemic -Dypshagia, SS consulted, input noted -Depression, MH consult -DVT prophylaxis reviewed critical care time 32 minutes History Interval history: Patient was seen and examined. Follow-up on current diagnosis of AMS. No overnight events reported to me. Imaging, nursing note, chart, labs and old chart reviewed. Discussed with patient. Hospitalist Physical - Physical exam Narrative exam: Gen: chronically ill appearing, NAD, Awake, aphasia HEENT: NCAT, EOMI, PERRL, OP with ngt in place Neck: supple, no adenopathy, no thyromegaly, no JVD CVS/Heart: RRR, normal S1S2, pulses present bilaterally Chest/Lungs: CTA B, Symmetrical chest expansion, good air entry bilaterally GI/Abdomen: soft, NTND, good bowel sounds, no guarding or rebound /Bladder: no suprapubic tenderness, no CVA or paraspinal tenderness Extermity/Skin: no c/c/e, no obvious rash MSK: FROM x 3 Neuro: CN 2-12 grossly intact, dysarthria Psych: calm - Constitutional Vitals: Temp Pulse Resp BP Pulse Ox 97.3 F L 87 18 138/71 99 06/23/19 12:00 06/23/19 16:09 06/23/19 16:00 06/23/19 16:09 06/23/19 16:00 General appearance: Absent: mild distress Results - Labs CBC & Chem 7: 06/23/19 05:36 Labs: Laboratory Last Values Sodium 144 mmol/L (137-145) 06/23/19 05:36 Potassium 4.6 mmol/L (3.6-5.0) 06/23/19 05:36 Chloride 107.7 mmol/L (98-107) H 06/23/19 05:36 Carbon Dioxide 20 mmol/L (22-30) L 06/23/19 05:36 21 mmol/L 06/23/19 05:36 BUN 34 mg/dL (7-17) H 06/23/19 05:36 3.7 mg/dL (0.7-1.2) H 06/23/19 05:36 Estimated GFR 16 ml/min 06/23/19 05:36 9 % 06/23/19 05:36 Glucose 96 mg/dL (65-100) 06/23/19 05:36 Lactic Acid 0.50 mmol/L (0.7-2.0) L 06/22/19 19:38 Calcium 9.5 mg/dL (8.4-10.2) 06/23/19 05:36 0.20 mg/dL (0.00-1.30) 06/22/19 19:38 Active Medications - Current Medications Current Medications: Generic Name Dose Route Start Last Admin Trade Name Freq PRN Reason Stop Dose Admin Acetaminophen 650 mg 06/21/19 20:13 Tylenol PO Q4H PRN Pain MILD(1-3)/Fever >100.5/GALLARDO Albuterol 2.5 mg 06/21/19 20:11 Proventil IH Q3HRT PRN Shortness Of Breath Lipase/Protease/Amylase 1 each 06/23/19 14:31 Pancreaze 10,500 Unit FEEDTUBE PRN PRN For Clogged Feeding Tube Aspirin 325 mg 06/23/19 10:00 06/23/19 09:03 Aspirin PO 325 mg QDAY [facility] Administration Atorvastatin Calcium 40 mg 06/21/19 22:00 06/22/19 21:03 Lipitor PO 40 mg QHS [facility] Administration Bisacodyl 10 mg 06/21/19 20:13 Dulcolax GA QDAY PRN Constipation unrelieved by MOM Clonidine HCl 0.2 mg 06/23/19 14:12 Catapres PO Q8HR [facility] Dextrose 50 ml 06/21/19 20:13 D50w (25gm) Syringe IV PRN PRN Hypoglycemia Ferrous Sulfate 325 mg 06/22/19 10:00 06/23/19 09:03 Feosol PO 325 mg QDAY [facility] Administration Folic Acid 1 mg 06/22/19 10:00 06/23/19 09:03 Folvite PO 1 mg QDAY [facility] Administration Heparin Sodium (Porcine) 5,000 unit 06/22/19 22:00 06/23/19 09:03 Heparin SUB-Q 5,000 unit Q12HR [facility] Administration Hydralazine HCl 10 mg 06/21/19 20:13 06/23/19 03:17 Apresoline IV 10 mg Q3H PRN Administration Hypertension Hydralazine HCl 10 mg 06/22/19 13:00 06/23/19 16:09 Apresoline IV 06/24/19 12:59 Not Given Q4H [facility] Hydralazine HCl 100 mg 06/22/19 14:00 06/23/19 13:48 Apresoline PO 100 mg TID [facility] Administration Nicardipine HCl 50 mg/ Sodium 250 mls @ 25 mls/hr 06/21/19 21:00 06/23/19 10:00 Chloride IV Infused TITR [facility] Titration Protocol 5 MG/HR Lansoprazole 30 mg 06/23/19 10:00 06/23/19 09:03 Prevacid Solutab FEEDTUBE 30 mg QDAY [facility] Administration Metoclopramide HCl 5 mg 06/21/19 23:00 06/23/19 12:43 Reglan IV 5 mg Q6HR [facility] Administration Ondansetron HCl 4 mg 06/21/19 20:13 06/21/19 21:39 Zofran Odt PO 4 mg Q6H PRN Administration Nausea And Vomiting Senna 8.6 mg 06/21/19 20:13 Senokot PO Q12H PRN Laxative Effect Simple Syrup 15 ml 06/23/19 14:31 Simple Syrup FEEDTUBE PRN PRN Hypoglycemia Simple Syrup 30 ml 06/23/19 14:31 Simple Syrup FEEDTUBE PRN PRN Hypoglycemia Sodium Bicarbonate 325 mg 06/23/19 14:31 Sodium Bicarbonate FEEDTUBE PRN PRN For Clogged Feeding Tube Sodium Chloride 10 ml 06/21/19 22:00 06/23/19 09:03 Sodium Chloride Flush Syringe 10 Ml IV 10 ml BID [facility] Administration Sodium Chloride 10 ml 06/21/19 20:11 Sodium Chloride Flush Syringe 10 Ml IV PRN PRN LINE FLUSH Verapamil HCl 80 mg 06/23/19 09:00 06/23/19 09:26 Calan PO 80 mg Q8H [facility] Administration Nutrition/Malnutrition Assess - Dietary Evaluation Nutrition/Malnutrition Findings: Nutrition Notes Start: 06/23/19 14:10 Freq: Status: Active Protocol: Document 06/23/19 14:10 RM (Rec: 06/23/19 14:31 RM [id number]) Nutrition Notes Need for Assessment generated from: MD Order Initial or Follow up Assessment Current Diagnosis Acute Kidney Injury,CKD(stage I-IV),Diabetes,Heart Failure, Stroke Other Pertinent Diagnosis Encephalopathy, Dysphagia, Depression Current Diet Cardiac Labs/Tests Reviewed Pertinent Medications [place] Height 5 ft 4 in Weight 77.7 kg [place] Body Weight (kg) 54.54 BMI 29.4 Subjective/Other Information Consulted for malnutrition and TF recommendation. Screened for chewing difficulty. Per nurse pt does not swallow her food. NPO recommended by [facility] [place] in place. No temporal or orbital wasting . Burn Absent Trauma Absent #1 Nutrition Diagnosis Inadequate oral intake Etiology dysphagia As Evidenced by Signs and Symptoms pt nurse statement that pt does not swallow her food Is patient on ventilator? No Is Patient Ambulatory and/or Out of Bed No REE-([facility]-confined to bed) 8437.451 Calculation Used for Recommendations [facility] Additional Notes Protein Needs: 93-155g (1.2-2g /kg) Fluid Needs: 1 ml/kcal Nutrition Intervention Nutrition Support: Nepro at 40 ml/hr Water flush of 150 mls q 4 hrs Kcal 1,728 Protein (gm) 78 Fluid (mL) 698 Goal #1 TF tolerance Goal #2 Meet at least 80% of calorie and protein needs via TF Anticipated Discharge Needs: Unable to determine at this time Follow-Up By: 06/25/19 Additional Comments Follow for new TF
[2019-06-23] MEDS ORDERED: ATIVAN IV ONE (21:56)
[2019-06-24] MEDS: REGLAN IV SCH ×4 (00:38→18:03)
[2019-06-24] MEDS: CALAN PO SCH ×2 (00:39→08:37)
[2019-06-24] MEDS: APRESOLINE IV SCH ×4 (02:25→07:40)
[2019-06-24 04:56] LABS: Hematocrit 30.1 % (30.3-42.9); Hemoglobin 9.6 gm/dl (10.1-14.3); Mean Corpuscular HGB Conc 32 % (30-34); Mean Corpuscular Volume 80 fl (79-97); Platelet Count 248 K/mm3 (140-440); Red Blood Count 3.75 M/mm3 (3.65-5.03)
[2019-06-24 04:57] LABS: Red Cell Distribution Width 20.7 % (13.2-15.2)
[2019-06-24 05:12] LABS: Calcium 9.5 mg/dL (8.4-10.2)
[2019-06-24] MEDS: CATAPRES PO SCH ×4 (05:37→22:00)
[2019-06-24] MEDS: APRESOLINE PO SCH ×3 (08:40→19:49)
[2019-06-24] MEDS ORDERED: LASIX PO SCH (10:00)
[2019-06-24] MEDS: ASPIRIN PO SCH (10:00)
[2019-06-24] MEDS: SODIUM CHLORIDE FLUSH SYRINGE 10 ML IV SCH ×2 (10:00→22:38)
[2019-06-24] MEDS: PREVACID SOLUTAB FEEDTUBE SCH (10:30)
[2019-06-24] MEDS: FOLVITE PO SCH (10:30)
[2019-06-24] MEDS: FERROUS SULFATE FEEDTUBE SCH (10:30)
[2019-06-24] MEDS: HEPARIN SUB-Q SCH ×2 (10:30→22:37)
--- NOTE | 2019-06-24 11:13 | Progress Note ---
Assessment and Plan - Patient Problems (1) Acute kidney injury superimposed on chronic kidney disease Current Visit: No Status: Acute Plan to address problem: eGFR marginally decreased, will hold lasix for now. no acute indication for renal replacement therapy. Will monitor lytes/renal parameters and make further recommendations. (2) Hypertensive emergency Current Visit: No Status: Acute Plan to address problem: BP improved on cardene gtt. now transitioning to po BP regimen incl. hydralazine 100mg po tid, clonidine was increased to 0.2mg po tid, however BP remains elevated. Will change verapamil to dehydropyridine Ca channel donavan, amlodipine 10mg po qd to achieve better BP control. once verapamil is off we can add labetalol if BP remains uncontrolled. JUANITA-I/ARB on hold due to CHENCHO on CKD. lasix held due to worsening eGFR and euvolemic status. (3) Systolic CHF, acute on chronic Current Visit: No Status: Chronic Plan to address problem: pt appears euvolemic, held lasix due to worsening eGFR (4) Type 2 diabetes mellitus with diabetic chronic kidney disease Current Visit: No Status: Chronic Plan to address problem: Blood sugar management by primary attending. Subjective Date of service: 06/24/19 Principal diagnosis: Hypertensive emergency; Acute encephalopathy; DM II; CHENCHO; CMOP; H/O CVA Interval history: Pt awake alert, following commands. in no acute respiratory distress. Objective - Vital Signs Vital signs: Vital Signs - 12hr 06/23/19 06/23/19 06/24/19 23:30 23:59 00:00 Temperature 98.7 F Pulse Rate 80 75 Respiratory 13 13 Rate Blood Pressure 169/79 163/76 O2 Sat by Pulse 100 100 Oximetry 06/24/19 06/24/19 06/24/19 00:12 00:30 00:39 Temperature Pulse Rate 74 78 77 Respiratory 13 13 Rate Blood Pressure 159/75 164/82 164/82 O2 Sat by Pulse 100 100 Oximetry 06/24/19 06/24/19 06/24/19 01:00 01:30 02:00 Temperature Pulse Rate 73 68 65 Respiratory 12 13 11 L Rate Blood Pressure 149/69 148/73 161/75 O2 Sat by Pulse 100 100 100 Oximetry 06/24/19 06/24/19 06/24/19 02:25 02:30 03:00 Temperature Pulse Rate 73 70 68 Respiratory 11 L 13 Rate Blood Pressure 173/87 166/80 156/77 O2 Sat by Pulse 100 100 Oximetry 06/24/19 06/24/19 06/24/19 03:30 04:00 04:30 Temperature 98.9 F Pulse Rate 69 70 74 Respiratory 11 L 13 10 L Rate Blood Pressure 165/77 163/79 176/95 O2 Sat by Pulse 100 100 100 Oximetry 06/24/19 06/24/19 06/24/19 05:00 05:25 05:30 Temperature Pulse Rate 69 74 73 Respiratory 14 17 Rate Blood Pressure 161/81 161/81 180/89 O2 Sat by Pulse 100 100 Oximetry 06/24/19 06/24/19 06/24/19 05:37 06:00 06:30 Temperature Pulse Rate 71 69 68 Respiratory 13 13 Rate Blood Pressure 180/89 183/86 174/85 O2 Sat by Pulse 100 100 Oximetry 06/24/19 06/24/19 06/24/19 07:00 07:30 07:40 Temperature Pulse Rate 70 72 71 Respiratory 14 19 Rate Blood Pressure 173/84 182/90 182/93 O2 Sat by Pulse 100 100 Oximetry 06/24/19 06/24/19 08:00 08:37 Temperature 97.7 F Pulse Rate 71 Respiratory Rate Blood Pressure 186/91 O2 Sat by Pulse Oximetry - General Appearance General appearance: well-developed, well-nourished, appears stated age EENT: ATNC, PERRL, mucous membranes moist Neck: no JVD Respiratory: Present: Clear to Ascultation Cardiology: regular, S1S2 Gastrointestinal: normoactive bowel sounds Integumentary: no rash, other (no edema ) Neurologic: other (dysarthria ) - Lab 06/24/19 04:05 06/24/19 04:05 Most recent lab results Calcium 9.5 mg/dL (8.4-10.2) 06/24/19 04:05 Medications & Allergies - Medications Allergies/Adverse Reactions: Allergies amlodipine besylate [From Norvasc] Allergy (Verified 01/21/14 20:31) Vomiting hydromorphone HCl [From Dilaudid] Allergy (Verified 01/21/14 20:31) Vomiting lisinopril Allergy (Verified 01/21/14 20:31) Unknown Home Medications: Home Medications Medication Instructions Recorded Confirmed Last Taken Type Acetaminophen [Acetaminophen TAB] 650 mg PO Q4H PRN 30 Days tablet 06/21/19 Unknown Rx Aspirin EC 325 mg PO QDAY 30 Days tablet 06/21/19 Unknown Rx AtorvaSTATin [Lipitor] 40 mg PO QHS 30 Days tablet 06/21/19 Unknown Rx Bisacodyl [Dulcolax suppos] 10 mg [place] QDAY PRN 30 Days 06/21/19 Unknown Rx supp.rect Dextrose 50% in Water [D50W (25GM) 50 ml IV PRN PRN 30 Days syringe 06/21/19 Unknown Rx Syringe] Ferrous Sulfate [Feosol 325 MG tab] 325 mg PO QDAY tablet 06/21/19 Unknown Rx Folic Acid [Folvite] 1 mg PO QDAY tablet 06/21/19 Unknown Rx Lispro Insulin [HumaLOG] 0 unit SUB-Q ACHS units 06/21/19 Unknown Rx Ondansetron [Zofran ODT TAB] 4 mg PO Q6H PRN 30 Days tab.rapdis 06/21/19 Unknown Rx Sennosides Tab [Senokot] 8.6 mg PO Q12H PRN tablet 06/21/19 Unknown Rx Sodium Chloride 0.9% 1000 ml [NaCl 100 ml IV DIRECT #1 bag 06/21/19 Unknown Rx 0.9 1000 ML] Verapamil Sr [Calan SR] 240 mg PO DAILY tablet 06/21/19 Unknown Rx hydrALAZINE [Apresoline INJ] 10 mg IV Q3H PRN vial 06/21/19 Unknown Rx Active Medications: Generic Name Dose Route Start Last Admin Trade Name Freq PRN Reason Stop Dose Admin Acetaminophen 650 mg 06/21/19 20:13 Tylenol PO Q4H PRN Pain MILD(1-3)/Fever >100.5/GALLARDO Albuterol 2.5 mg 06/21/19 20:11 Proventil IH Q3HRT PRN Shortness Of Breath Lipase/Protease/Amylase 1 each 06/23/19 14:31 Pancrekeren Lugo 10,500 Unit FEEDTUBE PRN PRN For Clogged Feeding Tube Aspirin 325 mg 06/23/19 10:00 06/24/19 10:00 Aspirin PO 325 mg QDAY CASPER Administration Atorvastatin Calcium 40 mg 06/21/19 22:00 06/23/19 22:20 Lipitor PO 40 mg QHS CASPER Administration Bisacodyl 10 mg 06/21/19 20:13 Dulcolax [place] QDAY PRN Constipation unrelieved by MOM Clonidine HCl 0.2 mg 06/23/19 14:12 06/24/19 05:37 Catapres PO 0.2 mg Q8HR CASPER Administration Dextrose 50 ml 06/21/19 20:13 D50w (25gm) Syringe IV PRN PRN Hypoglycemia Ferrous Sulfate 308 mg 06/24/19 10:00 06/24/19 10:30 Ferrous Sulfate FEEDTUBE 308 mg DAILY CASPER Administration Folic Acid 1 mg 06/22/19 10:00 06/24/19 10:30 Folvite PO 1 mg QDAY CASPER Administration Heparin Sodium (Porcine) 5,000 unit 06/22/19 22:00 06/24/19 10:30 Heparin SUB-Q 5,000 unit Q12HR CASPER Administration Hydralazine HCl 10 mg 06/21/19 20:13 06/23/19 03:17 Apresoline IV 10 mg Q3H PRN Administration Hypertension Hydralazine HCl 10 mg 06/22/19 13:00 06/24/19 07:40 Apresoline IV 06/24/19 12:59 10 mg Q4H CASPER Administration Hydralazine HCl 100 mg 06/22/19 14:00 06/24/19 08:40 Apresoline PO 100 mg TID CASPER Administration Nicardipine HCl 50 mg/ Sodium 250 mls @ 25 mls/hr 06/21/19 21:00 06/23/19 10:00 Chloride IV Infused TITR CASPER Titration Protocol 5 MG/HR Lansoprazole 30 mg 06/23/19 10:00 06/24/19 10:30 Prevacid Solutab FEEDTUBE 30 mg QDAY CASPER Administration Metoclopramide HCl 5 mg 06/21/19 23:00 06/24/19 11:03 Reglan IV 06/24/19 22:59 5 mg Q6HR CASPER Administration Ondansetron HCl 4 mg 06/21/19 20:13 06/21/19 21:39 Zofran Odt PO 4 mg Q6H PRN Administration Nausea And Vomiting Senna 8.6 mg 06/21/19 20:13 Senokot PO Q12H PRN Laxative Effect Simple Syrup 15 ml 06/23/19 14:31 Simple Syrup FEEDTUBE PRN PRN Hypoglycemia Simple Syrup 30 ml 06/23/19 14:31 Simple Syrup FEEDTUBE PRN PRN Hypoglycemia Sodium Bicarbonate 325 mg 06/23/19 14:31 Sodium Bicarbonate FEEDTUBE PRN PRN For Clogged Feeding Tube Sodium Chloride 10 ml 06/21/19 22:00 06/24/19 10:00 Sodium Chloride Flush Syringe 10 Ml IV 10 ml BID CASPER Administration Sodium Chloride 10 ml 06/21/19 20:11 Sodium Chloride Flush Syringe 10 Ml IV PRN PRN LINE FLUSH Verapamil HCl 80 mg 06/23/19 09:00 06/24/19 08:37 Calan PO 80 mg Q8H CASPER Administration
[2019-06-24] MEDS: CARDENE 50 MG in NACL 0.9% 250ML 230 ML IV SCH (11:26)
--- NOTE | 2019-06-24 11:47 | Progress Note ---
Assessment and Plan Hypertensive emergency, now on a Cardene drip. Acute encephalopathy. History of diabetes. Acute possibly on chronic kidney injury. Anemia that is normocytic. Cardiomyopathy (HFpEF) H/O cerebrovascular accident Oropharyngeal Dysphagia H/O Depression - MRI showed subacute CVA - add scheduled labetalol orally - increased clonidine to 0.3 mg q8h - prn hydralazine I.V. - continue secondary stroke prophylaxis - continue aspirin - continue lipitor - ST evaluation; continue enteral nutrition for now - neurology evaluation ongoing - continue fall precautions - continue to wean cardene drip for SBP < 150 mmHg - PT/OT consult placed - continue aspiration precautions - continue accucheck's with glycemic control. target blood glucose 140-180 mg/dL - continue to avoid nephrotoxins, adjust medications for CrCL and GFR - continue VTE prophylaxis with heparin; monitor for bleeding - continue Stress ulcer prophylaxis with Prevacid - PT/OT/ROM exercises as tolerated - continue mobility protocols for pressure ulcer prophylaxis - continue other care per attending / other consultants ..... re-evaluate in am & prn CONDITION: CRITICAL PROGNOSIS: GUARDED CODE STATUS: FULL The high probability of a clinically significant, sudden or life threatening deterioration of the [cardiovascular and neurologic] system(s) required my full and direct attention, intervention and personal management. The aggregate critical care time was [32] minutes. This time is in addition to time spent performing reported procedures but includes the following: [x] Data Review and interpretation [x]Patient assessment and monitoring of vital signs [x] Documentation [x] Medication orders and management Subjective Date of service: 06/24/19 Principal diagnosis: Hypertensive emergency; Acute encephalopathy; DM II; CHENCHO; CMOP; H/O CVA Interval history: Patient is seen today for: Hypertensive emergency on Cardene drip; Acute encephalopathy; History of diabetes; Acute possibly on chronic kidney injury; Anemia that is normocytic; Cardiomyopathy; H/O cerebrovascular accident. Seen and examined at bedside; 24hour events reviewed; nursing and respiratory care staff consulted; no adverse overnight events reported to me; resting peacefully in bed; remains on cardene drip (started overnight); drowsy; father visiting; no emesis or overt aspiration; no seizures; afebrile Objective Vital Signs - 12hr 06/23/19 06/24/19 06/24/19 23:59 00:00 00:12 Temperature 98.7 F Pulse Rate 75 74 Respiratory 13 13 Rate Blood Pressure 163/76 159/75 O2 Sat by Pulse 100 100 Oximetry 06/24/19 06/24/19 06/24/19 00:30 00:39 01:00 Temperature Pulse Rate 78 77 73 Respiratory 13 12 Rate Blood Pressure 164/82 164/82 149/69 O2 Sat by Pulse 100 100 Oximetry 06/24/19 06/24/19 06/24/19 01:30 02:00 02:25 Temperature Pulse Rate 68 65 73 Respiratory 13 11 L Rate Blood Pressure 148/73 161/75 173/87 O2 Sat by Pulse 100 100 Oximetry 06/24/19 06/24/19 06/24/19 02:30 03:00 03:30 Temperature Pulse Rate 70 68 69 Respiratory 11 L 13 11 L Rate Blood Pressure 166/80 156/77 165/77 O2 Sat by Pulse 100 100 100 Oximetry 06/24/19 06/24/19 06/24/19 04:00 04:30 05:00 Temperature 98.9 F Pulse Rate 70 74 69 Respiratory 13 10 L 14 Rate Blood Pressure 163/79 176/95 161/81 O2 Sat by Pulse 100 100 100 Oximetry 06/24/19 06/24/19 06/24/19 05:25 05:30 05:37 Temperature Pulse Rate 74 73 71 Respiratory 17 Rate Blood Pressure 161/81 180/89 180/89 O2 Sat by Pulse 100 Oximetry 06/24/19 06/24/19 06/24/19 06:00 06:30 07:00 Temperature Pulse Rate 69 68 70 Respiratory 13 13 14 Rate Blood Pressure 183/86 174/85 173/84 O2 Sat by Pulse 100 100 100 Oximetry 06/24/19 06/24/19 06/24/19 07:30 07:40 08:00 Temperature 97.7 F Pulse Rate 72 71 Respiratory 19 Rate Blood Pressure 182/90 182/93 O2 Sat by Pulse 100 Oximetry 06/24/19 08:37 Temperature Pulse Rate 71 Respiratory Rate Blood Pressure 186/91 O2 Sat by Pulse Oximetry Constitutional: no acute distress, other (middle aged AAF, normocephalic and atraumatic with mildly increased respiratory effort at rest) Eyes: non-icteric ENT: oropharynx moist, other (mallampati 3) Neck: supple, no lymphadenopathy, no JVD Effort: mildly labored Ascultation: Bilateral: clear, diminished breath sounds Percussion: Bilateral: not dull Cardiovascular: regular rate and rhythm Gastrointestinal: normoactive bowel sounds, soft, non-tender, non-distended Integumentary: normal Extremities: no cyanosis, no edema, pulses normal, no ischemia or petechiae Neurologic: pupils equal and round, CN II-XII normal, other (left hemiparesis) Psychiatric: other (flat affect) CBC and BMP: 06/27/19 04:30 06/27/19 04:30 Abnormal lab findings: Abnormal Labs 06/22/19 06/23/19 06/24/19 19:38 05:36 04:05 Hgb 9.6 L Hct 30.1 L MCH 26 L RDW 20.7 H Sodium Chloride 107.7 H Carbon Dioxide 20 L BUN 34 H Creatinine 3.7 H Glucose Lactic Acid 0.50 L 06/24/19 04:05 Hgb Hct MCH RDW Sodium 147 H Chloride 109.2 H Carbon Dioxide BUN 41 H Creatinine 4.0 H Glucose 105 H Lactic Acid Allied health notes reviewed: nursing
[2019-06-24] MEDS: NORMODYNE PO SCH ×2 (12:54→22:36)
[2019-06-24] MEDS: NORVASC PO SCH (12:54)
--- NOTE | 2019-06-24 13:34 | XRay Report ---
CHEST 1 VIEW INDICATION: Aspiration. COMPARISON: 06/21/2019 FINDINGS: Support devices: A feeding tube is followed to the stomach but its distal tip is cut off the field-of -view. Heart: Borderline heart size. Lungs/Pleura: No acute air space or interstitial disease. Additional findings: None. IMPRESSION: Borderline heart size. Lungs clear. Signer Name: Apolinar Zayas Jr, MD Signed: 06/24/2019 1:30 PM Workstation Name: [id number]
--- NOTE | 2019-06-24 14:20 | Progress Note ---
Assessment and Plan Assessment and plan: Patient is 49-year-old woman with a history of anemia, diabetes, heart failure, stroke, hypertension, COPD, CVA with left side deficit for which she was in [facility] rehabilitation unit who was discharge to the acute Inpatient unit for confusion and elevated blood pressure with systolic BP over 200, inability to talk which began on the weekend per Dr. Singh. * MRI brain without contrast IMPRESSION: Small areas of subacute ischemia are identified in the head of the right caudate nucleus, left parietal white matter and left splenium of the corpus callosum as described. Volume loss. Advanced chronic white matter changes. Chronic focal infarcts in the right zavala radiata and inferior left cerebellum. -New Acute Left ischemic stroke while in Rehab unit: treat with ASA and statin -Hypertensive emergency; try to wean off Cardene drip, unable to transition to oral medications due inability to swallow -Acute metabolic Hypertensive encephalopathy: Improving as blood pressure comes down -CKD stage 4, unchanged, avoid nephrotoxins, nephrology consult -hx of DM appears to be in remission, as patient a1c is 4.9 last month, she has had normal a1c of < 6 since 2017, no need for insulins at this time -Moderate protein malnutrition, Dietitian consult -Diastolic CHF by history; keep euvolemic -Dypshagia, SS consulted, input noted -Depression, MH consult -DVT prophylaxis reviewed Disposition: continue inpatient care, try to wean Cardene drip Critical care time 31 minutes History Interval history: Patient was seen and examined. Follow-up on current diagnosis of AMS. No overnight events reported to me. Imaging, nursing note, chart, labs and old chart reviewed. Discussed with patient. Hospitalist Physical - Physical exam Narrative exam: Gen: chronically ill appearing, NAD, Awake, aphasia HEENT: NCAT, EOMI, PERRL, OP with ngt in place Neck: supple, no adenopathy, no thyromegaly, no JVD CVS/Heart: RRR, normal S1S2, pulses present bilaterally Chest/Lungs: CTA B, Symmetrical chest expansion, good air entry bilaterally GI/Abdomen: soft, NTND, good bowel sounds, no guarding or rebound /Bladder: no suprapubic tenderness, no CVA or paraspinal tenderness Extermity/Skin: no c/c/e, no obvious rash MSK: FROM x 3 Neuro: CN 2-12 grossly intact, dysarthria Psych: calm - Constitutional Vitals: Temp Pulse Resp BP Pulse Ox 98.0 F 74 14 164/77 100 06/24/19 12:00 06/24/19 13:01 06/24/19 12:30 06/24/19 13:01 06/24/19 12:30 General appearance: Absent: mild distress Results - Labs CBC & Chem 7: 06/24/19 04:05 06/24/19 04:05 Labs: Laboratory Last Values WBC 4.9 K/mm3 (4.5-11.0) 06/24/19 04:05 RBC 3.75 M/mm3 (3.65-5.03) 06/24/19 04:05 Hgb 9.6 gm/dl (10.1-14.3) L 06/24/19 04:05 Hct 30.1 % (30.3-42.9) L 06/24/19 04:05 MCV 80 fl (79-97) 06/24/19 04:05 MCH 26 pg (28-32) L 06/24/19 04:05 MCHC 32 % (30-34) 06/24/19 04:05 RDW 20.7 % (13.2-15.2) H 06/24/19 04:05 Plt Count 248 K/mm3 (140-440) 06/24/19 04:05 Sodium 147 mmol/L (137-145) H 06/24/19 04:05 Potassium 4.4 mmol/L (3.6-5.0) 06/24/19 04:05 Chloride 109.2 mmol/L (98-107) H 06/24/19 04:05 Carbon Dioxide 24 mmol/L (22-30) 06/24/19 04:05 18 mmol/L 06/24/19 04:05 BUN 41 mg/dL (7-17) H 06/24/19 04:05 4.0 mg/dL (0.7-1.2) H 06/24/19 04:05 Estimated GFR 15 ml/min 06/24/19 04:05 10 % 06/24/19 04:05 Glucose 105 mg/dL (65-100) H 06/24/19 04:05 Lactic Acid 0.50 mmol/L (0.7-2.0) L 08/12/19 19:38 Calcium 9.5 mg/dL (8.4-10.2) 06/24/19 04:05 0.20 mg/dL (0.00-1.30) 06/22/19 19:38 Active Medications - Current Medications Current Medications: Generic Name Dose Route Start Last Admin Trade Name Freq PRN Reason Stop Dose Admin Acetaminophen 650 mg 06/21/19 20:13 Tylenol PO Q4H PRN Pain MILD(1-3)/Fever >100.5/GALLARDO Albuterol 2.5 mg 06/21/19 20:11 Proventil IH Q3HRT PRN Shortness Of Breath Amlodipine Besylate 10 mg 06/24/19 12:00 06/24/19 12:54 Norvasc PO 10 mg QDAY CASPER Administration Lipase/Protease/Amylase 1 each 06/23/19 14:31 Pancreaze 10,500 Unit FEEDTUBE PRN PRN For Clogged Feeding Tube Aspirin 325 mg 06/23/19 10:00 06/24/19 10:00 Aspirin PO 325 mg QDAY CASPER Administration Atorvastatin Calcium 40 mg 06/21/19 22:00 06/23/19 22:20 Lipitor PO 40 mg QHS CASPER Administration Bisacodyl 10 mg 06/21/19 20:[address] QDAY PRN Constipation unrelieved by MOM Clonidine HCl 0.2 mg 06/23/19 14:12 06/24/19 13:01 Catapres PO 0.2 mg Q8HR CASPER Administration Dextrose 50 ml 06/21/19 20:13 D50w (25gm) Syringe IV PRN PRN Hypoglycemia Ferrous Sulfate 308 mg 06/24/19 10:00 06/24/19 10:30 Ferrous Sulfate FEEDTUBE 308 mg DAILY CASPER Administration Folic Acid 1 mg 06/22/19 10:00 06/24/19 10:30 Folvite PO 1 mg QDAY CASPER Administration Heparin Sodium (Porcine) 5,000 unit 06/22/19 22:00 06/24/19 10:30 Heparin SUB-Q 5,000 unit Q12HR CASPER Administration Hydralazine HCl 10 mg 06/21/19 20:13 06/23/19 03:17 Apresoline IV 10 mg Q3H PRN Administration Hypertension Hydralazine HCl 100 mg 06/22/19 14:00 06/24/19 13:01 Apresoline PO 100 mg TID CASPER Administration Nicardipine HCl 50 mg/ Sodium 250 mls @ 25 mls/hr 06/21/19 21:00 06/24/19 13:54 Chloride IV 5 mg/hr TITR CASPER 25 mls/hr Titration Protocol 5 MG/HR Labetalol HCl 200 mg 06/24/19 12:00 06/24/19 12:54 Normodyne PO 200 mg BID CASPER Administration Lansoprazole 30 mg 06/23/19 10:00 06/24/19 10:30 Prevacid Solutab FEEDTUBE 30 mg QDAY CASPER Administration Metoclopramide HCl 5 mg 06/21/19 23:00 06/24/19 11:03 Reglan IV 06/24/19 22:59 5 mg Q6HR CASPER Administration Ondansetron HCl 4 mg 06/21/19 20:13 06/21/19 21:39 Zofran Odt PO 4 mg Q6H PRN Administration Nausea And Vomiting Senna 8.6 mg 06/21/19 20:13 Senokot PO Q12H PRN Laxative Effect Simple Syrup 15 ml 06/23/19 14:31 Simple Syrup FEEDTUBE PRN PRN Hypoglycemia Simple Syrup 30 ml 06/23/19 14:31 Simple Syrup FEEDTUBE PRN PRN Hypoglycemia Sodium Bicarbonate 325 mg 06/23/19 14:31 Sodium Bicarbonate FEEDTUBE PRN PRN For Clogged Feeding Tube Sodium Chloride 10 ml 06/21/19 22:00 06/24/19 10:00 Sodium Chloride Flush Syringe 10 Ml IV 10 ml BID CASPER Administration Sodium Chloride 10 ml 06/21/19 20:11 Sodium Chloride Flush Syringe 10 Ml IV PRN PRN LINE FLUSH Nutrition/Malnutrition Assess - Dietary Evaluation Nutrition/Malnutrition Findings: Nutrition Notes Start: 06/23/19 14:10 Freq: Status: Active Protocol: Document 06/23/19 14:10 RM (Rec: 06/23/19 14:31 RM [id number]) Nutrition Notes Need for Assessment generated from: MD Order Initial or Follow up Assessment Current Diagnosis Acute Kidney Injury,CKD(stage I-IV),Diabetes,Heart Failure, Stroke Other Pertinent Diagnosis Encephalopathy, Dysphagia, Depression Current Diet Cardiac Labs/Tests Reviewed Pertinent Medications [place] Height 5 ft 4 in Weight 77.7 kg [place] Body Weight (kg) 54.54 BMI 29.4 Subjective/Other Information Consulted for malnutrition and TF recommendation. Screened for chewing difficulty. Per nurse pt does not swallow her food. NPO recommended by [facility]. [place] in place. No temporal or orbital wasting . Burn Absent Trauma Absent #1 Nutrition Diagnosis Inadequate oral intake Etiology dysphagia As Evidenced by Signs and Symptoms pt nurse statement that pt does not swallow her food Is patient on ventilator? No Is Patient Ambulatory and/or Out of Bed No REE-([facility]-confined to bed) [phone] Calculation Used for Recommendations [facility] Additional Notes Protein Needs: 93-155g (1.2-2g /kg) Fluid Needs: 1 ml/kcal Nutrition Intervention Nutrition Support: Nepro at 40 ml/hr Water flush of 150 mls q 4 hrs Kcal 1,728 Protein (gm) 78 Fluid (mL) 698 Goal #1 TF tolerance Goal #2 Meet at least 80% of calorie and protein needs via TF Anticipated Discharge Needs: Unable to determine at this time Follow-Up By: 06/25/19 Additional Comments Follow for new TF
[2019-06-24] MEDS: APRESOLINE IV PRN ×2 (18:03→22:37)
[2019-06-24] MEDS ORDERED: APRESOLINE IV ONE (20:00)
[2019-06-25] MEDS: APRESOLINE IV PRN (03:56)
[2019-06-25 05:02] LABS: Hematocrit 31.6 % (30.3-42.9); Hemoglobin 10.4 gm/dl (10.1-14.3); Mean Corpuscular HGB Conc 33 % (30-34); Mean Corpuscular Volume 81 fl (79-97); Platelet Count 224 K/mm3 (140-440); Red Blood Count 3.92 M/mm3 (3.65-5.03); Red Cell Distribution Width 20.1 % (13.2-15.2)
[2019-06-25 05:18] LABS: Calcium 9.2 mg/dL (8.4-10.2)
[2019-06-25] MEDS: CATAPRES PO SCH ×3 (06:10→21:19)
[2019-06-25] MEDS: APRESOLINE PO SCH ×3 (08:03→21:20)
--- NOTE | 2019-06-25 09:28 | Progress Note ---
Assessment and Plan Hypertensive emergency, now on a Cardene drip. Acute encephalopathy. History of diabetes. Acute possibly on chronic kidney injury. Anemia that is normocytic. Cardiomyopathy (HFpEF) H/O cerebrovascular accident Oropharyngeal Dysphagia H/O Depression - MRI shows some volume loss with areas of small infarcts - continue secondary stroke prophylaxis -conitue oral medications via small bowel feeding tube. 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 target blood glucose 140-180 mg/dL - continue to avoid nephrotoxins, adjust medications for CrCL and GFR - continue VTE prophylaxis with heparin; monitor for bleeding - continue stress ulcer prophylaxis with Prevacid - continue mobility protocols for pressure ulcer prevention - continue other care per attending / other consultants ..... re-evaluate in am & prn CONDITION: CRITICAL PROGNOSIS: GUARDED CODE STATUS: FULL The high probability of a clinically significant, sudden or life threatening deterioration of the [cardiovascular, renal and neurologic] system(s) required my full and direct attention, intervention and personal management. The aggregate critical care time was [34] minutes. This time is in addition to time spent performing reported procedures but includes the following: [x] Data Review and interpretation [x]Patient assessment and monitoring of vital signs [x] Documentation [x] Medication orders and management Subjective Date of service: 06/25/19 Principal diagnosis: Hypertensive emergency; Acute encephalopathy; DM II; CHENCHO; CMOP; H/O CVA Interval history: Patient is seen today for: Hypertensive emergency on Cardene drip; Acute encephalopathy; History of diabetes; Acute possibly on chronic kidney injury; Anemia that is normocytic; Cardiomyopathy; H/O cerebrovascular accident. Seen and examined at bedside; 24hour events reviewed; nursing and respiratory care staff consulted; no adverse overnight events reported to me; resting peacefully in bed, awkae and alert ; remains on cardene drip, oral medications addedd via small bowel feeding tube; Vitals, labs, medications, chart reviewed. Objective Vital Signs - 12hr 06/24/19 06/24/19 06/24/19 21:30 21:45 22:00 Temperature Pulse Rate 64 67 63 Respiratory 11 L 10 L 8 L Rate Blood Pressure 176/85 182/86 174/83 O2 Sat by Pulse 82 L 87 98 Oximetry 06/24/19 06/24/19 06/24/19 22:15 22:30 22:36 Temperature Pulse Rate 63 64 70 Respiratory 10 L 8 L Rate Blood Pressure 177/83 181/87 181/87 O2 Sat by Pulse 100 98 Oximetry 06/24/19 06/24/19 06/24/19 22:37 22:45 23:00 Temperature Pulse Rate 70 64 64 Respiratory 10 L 10 L Rate Blood Pressure 181/87 174/86 165/76 O2 Sat by Pulse 100 99 Oximetry 06/24/19 06/24/19 06/24/19 23:15 23:30 23:42 Temperature 98.8 F Pulse Rate 64 65 Respiratory 10 L 10 L Rate Blood Pressure 162/77 160/77 O2 Sat by Pulse 100 100 Oximetry 06/24/19 06/24/19 06/25/19 23:45 23:49 00:00 Temperature Pulse Rate 63 64 65 Respiratory 10 L 10 L 10 L Rate Blood Pressure 160/74 160/74 160/74 O2 Sat by Pulse 100 100 99 Oximetry 06/25/19 06/25/19 06/25/19 00:15 00:30 00:45 Temperature Pulse Rate 64 66 64 Respiratory 11 L 11 L 10 L Rate Blood Pressure 161/72 160/73 165/74 O2 Sat by Pulse 100 100 100 Oximetry 06/25/19 06/25/19 06/25/19 01:00 01:15 01:30 Temperature Pulse Rate 65 70 64 Respiratory 11 L 11 L 11 L Rate Blood Pressure 164/73 153/76 167/76 O2 Sat by Pulse 99 100 98 Oximetry 06/25/19 06/25/19 06/25/19 01:45 02:00 02:15 Temperature Pulse Rate 66 65 66 Respiratory 11 L 12 11 L Rate Blood Pressure 177/79 165/75 167/76 O2 Sat by Pulse 98 98 100 Oximetry 06/25/19 06/25/19 06/25/19 02:30 02:45 03:00 Temperature Pulse Rate 68 67 66 Respiratory 10 L 12 12 Rate Blood Pressure 170/84 165/81 161/76 O2 Sat by Pulse 97 100 100 Oximetry 06/25/19 06/25/19 06/25/19 03:15 03:30 03:45 Temperature Pulse Rate 69 66 67 Respiratory 10 L 9 L 10 L Rate Blood Pressure 168/82 175/83 182/85 O2 Sat by Pulse 100 100 100 Oximetry 06/25/19 06/25/19 06/25/19 03:56 04:00 04:01 Temperature 98.0 F Pulse Rate 79 71 71 Respiratory 11 L Rate Blood Pressure 182/85 155/77 O2 Sat by Pulse 100 Oximetry 06/25/19 06/25/19 06/25/19 04:15 04:31 04:45 Temperature Pulse Rate 68 68 70 Respiratory 11 L 11 L 11 L Rate Blood Pressure 155/77 154/74 154/74 O2 Sat by Pulse 100 87 100 Oximetry 06/25/19 06/25/19 06/25/19 05:01 05:15 05:31 Temperature Pulse Rate 69 73 71 Respiratory 10 L 11 L 11 L Rate Blood Pressure 159/76 159/76 164/79 O2 Sat by Pulse 98 97 86 Oximetry 06/25/19 06/25/19 06/25/19 05:45 06:01 06:10 Temperature Pulse Rate 74 69 74 Respiratory 9 L 11 L Rate Blood Pressure 164/79 166/78 166/78 O2 Sat by Pulse 100 86 Oximetry 06/25/19 06/25/19 06/25/19 06:15 06:31 06:45 Temperature Pulse Rate 75 71 68 Respiratory 10 L 11 L 12 Rate Blood Pressure 166/78 163/78 163/78 O2 Sat by Pulse 100 99 100 Oximetry 06/25/19 06/25/19 06/25/19 07:01 07:15 07:31 Temperature Pulse Rate 70 70 68 Respiratory 13 13 16 Rate Blood Pressure 161/76 161/76 165/76 O2 Sat by Pulse 100 100 100 Oximetry 06/25/19 06/25/19 06/25/19 07:45 08:00 08:01 Temperature 97.9 F Pulse Rate 67 93 H 66 Respiratory 22 15 19 Rate Blood Pressure 165/76 161/75 O2 Sat by Pulse 100 100 Oximetry 06/25/19 06/25/19 06/25/19 08:15 08:31 08:45 Temperature Pulse Rate 67 69 69 Respiratory 11 L 11 L 10 L Rate Blood Pressure 161/75 152/73 152/73 O2 Sat by Pulse 100 100 100 Oximetry 06/25/19 09:01 Temperature Pulse Rate 72 Respiratory 10 L Rate Blood Pressure 144/72 O2 Sat by Pulse 100 Oximetry Constitutional: no acute distress, other (middle aged AAF, normocephalic and atraumatic with mildly increased respiratory effort at rest) Eyes: non-icteric ENT: oropharynx moist, other (mallampati 3) Neck: supple, no lymphadenopathy, no JVD Effort: mildly labored Ascultation: Bilateral: clear, diminished breath sounds Percussion: Bilateral: not dull Cardiovascular: regular rate and rhythm Gastrointestinal: normoactive bowel sounds, soft, non-tender, non-distended Integumentary: normal Extremities: no cyanosis, no edema, pulses normal, no ischemia or petechiae Neurologic: pupils equal and round, other (left hemiparesis) Psychiatric: other (flat affect) CBC and BMP: 06/27/19 04:30 06/30/19 05:20 Abnormal lab findings: Abnormal Labs 06/22/19 06/23/19 06/24/19 19:38 05:36 04:05 WBC Hgb 9.6 L Hct 30.1 L MCH 26 L RDW 20.7 H Sodium Chloride 107.7 H Carbon Dioxide 20 L BUN 34 H Creatinine 3.7 H Glucose Lactic Acid 0.50 L 06/24/19 06/25/19 06/25/19 04:05 03:59 03:59 WBC 3.6 L Hgb Hct MCH 27 L RDW 20.1 H Sodium 147 H Chloride 109.2 H Carbon Dioxide BUN 41 H 45 H Creatinine 4.0 H 3.6 H Glucose 105 H 124 H Lactic Acid Chest x-ray: image reviewed Allied health notes reviewed: nursing
[2019-06-25] MEDS: PREVACID SOLUTAB FEEDTUBE SCH (09:54)
[2019-06-25] MEDS: NORVASC PO SCH (09:55)
[2019-06-25] MEDS: NORMODYNE PO SCH ×2 (09:55→21:20)
[2019-06-25] MEDS: SODIUM CHLORIDE FLUSH SYRINGE 10 ML IV SCH ×2 (09:55→21:24)
[2019-06-25] MEDS: FOLVITE PO SCH (09:55)
[2019-06-25] MEDS: ASPIRIN PO SCH (09:55)
[2019-06-25] MEDS: HEPARIN SUB-Q SCH ×2 (09:56→21:21)
[2019-06-25] MEDS: FERROUS SULFATE FEEDTUBE SCH (10:58)
--- NOTE | 2019-06-25 12:25 | Progress Note ---
Assessment and Plan Assessment and plan: Patient is 49-year-old woman with a history of anemia, diabetes, heart failure, stroke, hypertension, COPD, CVA with left side deficit for which she was in [facility] rehabilitation unit from [facility], who was about to be discharge from discharge to the acute Inpatient unit for confusion and elevated blood pressure with systolic BP over 200, inability to talk which began on the weekend per Dr. Singh. * MRI brain without contrast IMPRESSION: Small areas of subacute ischemia are identified in the head of the right caudate nucleus, left parietal white matter and left splenium of the corpus callosum as described. Volume loss. Advanced chronic white matter changes. Chronic focal infarcts in the right zavala radiata and inferior left cerebellum. -New Acute Left ischemic stroke while in Rehab unit: treat with ASA and statin -Hypertensive emergency; off Cardene drip, unable to transition to oral medications due inability to swallow -Acute metabolic Hypertensive encephalopathy: Improving as blood pressure comes down -CKD stage 4, unchanged, avoid nephrotoxins, nephrology consult -hx of DM appears to be in remission, as patient a1c is 4.9 last month, she has had normal a1c of < 6 since 2017, no need for insulins at this time -Moderate protein malnutrition, Dietitian consult -Diastolic CHF by history; keep euvolemic -Dypshagia, SS consulted, input noted -Depression, MH consult -DVT prophylaxis reviewed Disposition: continue inpatient care, off Cardene drip, consider transfer out icu Critical care time 31 minutes History Interval history: Patient was seen and examined. Follow-up on current diagnosis of AMS. No over night events reported to me. Imaging, nursing note, chart, labs and old chart reviewed. Discussed with patient. Hospitalist Physical - Physical exam Narrative exam: Gen: chronically ill appearing, NAD, Awake, aphasia HEENT: NCAT, EOMI, PERRL, OP with ngt in place Neck: supple, no adenopathy, no thyromegaly, no JVD CVS/Heart: RRR, normal S1S2, pulses present bilaterally Chest/Lungs: CTA B, Symmetrical chest expansion, good air entry bilaterally GI/Abdomen: soft, NTND, good bowel sounds, no guarding or rebound /Bladder: no suprapubic tenderness, no CVA or paraspinal tenderness Extermity/Skin: no c/c/e, no obvious rash MSK: FROM x 3 Neuro: CN 2-12 grossly intact, dysarthria Psych: calm - Constitutional Vitals: Temp Pulse Resp BP Pulse Ox 97.9 F 70 10 L 158/79 100 06/25/19 08:00 06/25/19 09:55 06/25/19 09:01 06/25/19 09:55 06/25/19 09:01 General appearance: Absent: mild distress Results - Labs CBC & Chem 7: 06/25/19 03:59 06/25/19 03:59 Labs: Laboratory Last Values WBC 3.6 K/mm3 (4.5-11.0) L 06/25/19 03:59 RBC 3.92 M/mm3 (3.65-5.03) 06/25/19 03:59 Hgb 10.4 gm/dl (10.1-14.3) 06/25/19 03:59 Hct 31.6 % (30.3-42.9) 06/25/19 03:59 MCV 81 fl (79-97) 06/25/19 03:59 MCH 27 pg (28-32) L 06/25/19 03:59 MCHC 33 % (30-34) 06/25/19 03:59 RDW 20.1 % (13.2-15.2) H 06/25/19 03:59 Plt Count 224 K/mm3 (140-440) 06/25/19 03:59 Sodium 143 mmol/L (137-145) 06/25/19 03:59 Potassium 4.3 mmol/L (3.6-5.0) 06/25/19 03:59 Chloride 106.7 mmol/L (98-107) 06/25/19 03:59 Carbon Dioxide 25 mmol/L (22-30) 06/25/19 03:59 16 mmol/L 06/25/19 03:59 BUN 45 mg/dL (7-17) H 06/25/19 03:59 3.6 mg/dL (0.7-1.2) H 06/25/19 03:59 Estimated GFR 16 ml/min 06/25/19 03:59 13 % 06/25/19 03:59 Glucose 124 mg/dL (65-100) H 06/25/19 03:59 Lactic Acid 0.50 mmol/L (0.7-2.0) L 06/22/19 19:38 Calcium 9.2 mg/dL (8.4-10.2) 06/25/19 03:59 0.20 mg/dL (0.00-1.30) 06/22/19 19:38 Active Medications - Current Medications Current Medications: Generic Name Dose Route Start Last Admin Trade Name Freq PRN Reason Stop Dose Admin Acetaminophen 650 mg 06/21/19 20:13 Tylenol PO Q4H PRN Pain MILD(1-3)/Fever >100.5/GALLARDO Albuterol 2.5 mg 06/21/19 20:11 Proventil IH Q3HRT PRN Shortness Of Breath Amlodipine Besylate 10 mg 06/24/19 12:00 06/25/19 09:55 Norvasc PO 10 mg QDAY CASPER Administration Lipase/Protease/Amylase 1 each 06/23/19 14:31 Pancreaze 10,500 Unit FEEDTUBE PRN PRN For Clogged Feeding Tube Aspirin 325 mg 06/23/19 10:00 06/25/19 09:55 Aspirin PO 325 mg QDAY CASPER Administration Atorvastatin Calcium 40 mg 06/21/19 22:00 06/24/19 22:37 Lipitor PO 40 mg QHS CASPER Administration Bisacodyl 10 mg 06/21/19 20:13 Dulcolax PA QDAY PRN Constipation unrelieved by MOM Clonidine HCl 0.3 mg 06/24/19 19:50 06/25/19 06:10 Catapres PO 0.3 mg Q8HR CASPER Administration Dextrose 50 ml 06/21/19 20:13 D50w (25gm) Syringe IV PRN PRN Hypoglycemia Ferrous Sulfate 308 mg 06/24/19 10:00 06/25/19 10:58 Ferrous Sulfate FEEDTUBE 308 mg DAILY CASPER Administration Folic Acid 1 mg 06/22/19 10:00 06/25/19 09:55 Folvite PO 1 mg QDAY CASPER Administration Heparin Sodium (Porcine) 5,000 unit 06/22/19 22:00 06/25/19 09:56 Heparin SUB-Q 5,000 unit Q12HR CASPER Administration Hydralazine HCl 10 mg 06/21/19 20:13 06/25/19 03:56 Apresoline IV 10 mg Q3H PRN Administration Hypertension Hydralazine HCl 100 mg 06/22/19 14:00 06/25/19 08:03 Apresoline PO 100 mg TID CASPER Administration Nicardipine HCl 50 mg/ Sodium 250 mls @ 25 mls/hr 06/21/19 21:00 06/24/19 14:15 Chloride IV 0 mg/hr TITR CASPER 0 mls/hr Titration Protocol 5 MG/HR Labetalol HCl 200 mg 06/24/19 12:00 06/25/19 09:55 Normodyne PO 200 mg BID CASPER Administration Lansoprazole 30 mg 06/23/19 10:00 06/25/19 09:54 Prevacid Solutab FEEDTUBE 30 mg QDAY CASPER Administration Ondansetron HCl 4 mg 06/21/19 20:13 06/21/19 21:39 Zofran Odt PO 4 mg Q6H PRN Administration Nausea And Vomiting Senna 8.6 mg 06/21/19 20:13 Senokot PO Q12H PRN Laxative Effect Simple Syrup 15 ml 06/23/19 14:31 Simple Syrup FEEDTUBE PRN PRN Hypoglycemia Simple Syrup 30 ml 06/23/19 14:31 Simple Syrup FEEDTUBE PRN PRN Hypoglycemia Sodium Bicarbonate 325 mg 06/23/19 14:31 Sodium Bicarbonate FEEDTUBE PRN PRN For Clogged Feeding Tube Sodium Chloride 10 ml 06/21/19 22:00 06/25/19 09:55 Sodium Chloride Flush Syringe 10 Ml IV 10 ml BID CASPER Administration Sodium Chloride 10 ml 06/21/19 20:11 Sodium Chloride Flush Syringe 10 Ml IV PRN PRN LINE FLUSH Nutrition/Malnutrition Assess - Dietary Evaluation Nutrition/Malnutrition Findings: Nutrition Notes Start: 06/23/19 14:10 Freq: Status: Active Protocol: Document 06/23/19 14:10 RM (Rec: 06/23/19 14:31 RM [email or web address]) Nutrition Notes Need for Assessment generated from: MD Order Initial or Follow up Assessment Current Diagnosis Acute Kidney Injury,CKD(stage I-IV),Diabetes,Heart Failure, Stroke Other Pertinent Diagnosis Encephalopathy, Dysphagia, Depression Current Diet Cardiac Labs/Tests Reviewed Pertinent Medications [place] Height 5 ft 4 in Weight 77.7 kg [place] Body Weight (kg) 54.54 BMI 29.4 Subjective/Other Information Consulted for malnutrition and TF recommendation. Screened for chewing difficulty. Per nurse pt does not swallow her food. NPO recommended by [facility] [place] in place. No temporal or orbital wasting . Burn Absent Trauma Absent #1 Nutrition Diagnosis Inadequate oral intake Etiology dysphagia As Evidenced by Signs and Symptoms pt nurse statement that pt does not swallow her food Is patient on ventilator? No Is Patient Ambulatory and/or Out of Bed No REE-([facility]-confined to bed) [phone] Calculation Used for Recommendations [facility] Additional Notes Protein Needs: 93-155g (1.2-2g /kg) Fluid Needs: 1 ml/kcal Nutrition Intervention Nutrition Support: Nepro at 40 ml/hr Water flush of 150 mls q 4 hrs Kcal 1,728 Protein (gm) 78 Fluid (mL) 698 Goal #1 TF tolerance Goal #2 Meet at least 80% of calorie and protein needs via TF Anticipated Discharge Needs: Unable to determine at this time Follow-Up By: 06/25/19 Additional Comments Follow for new TF
--- NOTE | 2019-06-25 17:41 | Progress Note ---
Assessment and Plan - Patient Problems (1) Acute kidney injury superimposed on chronic kidney disease Current Visit: No Status: Acute Plan to address problem: stable renal function. cont to hold lasix. no acute indication for renal replacement therapy. Will monitor lytes/renal parameters and make further recommendations. (2) Hypertensive emergency Current Visit: No Status: Acute Plan to address problem: BP improved on current BP regimen. pt weaned off cardene gtt. JUANITA-I/ARB on hold due to CHENCHO on CKD. lasix held due to worsening eGFR and euvolemic status. (3) Systolic CHF, acute on chronic Current Visit: No Status: Chronic Plan to address problem: pt appears euvolemic, held lasix due to worsening eGFR (4) Type 2 diabetes mellitus with diabetic chronic kidney disease Current Visit: No Status: Chronic Plan to address problem: Blood sugar management by primary attending. Subjective Date of service: 06/25/19 Principal diagnosis: Hypertensive emergency; Acute encephalopathy; DM II; CHENCHO; CMOP; H/O CVA Interval history: Pt awake alert. in no acute respiratory distress. pt weaned off cardene gtt Objective - Vital Signs Vital signs: Vital Signs - 12hr 06/25/19 06/25/19 06/25/19 05:45 06:01 06:10 Temperature Pulse Rate 74 69 74 Respiratory 9 L 11 L Rate Blood Pressure 164/79 166/78 166/78 O2 Sat by Pulse 100 86 Oximetry 06/25/19 06/25/19 06/25/19 06:15 06:31 06:45 Temperature Pulse Rate 75 71 68 Respiratory 10 L 11 L 12 Rate Blood Pressure 166/78 163/78 163/78 O2 Sat by Pulse 100 99 100 Oximetry 06/25/19 06/25/19 06/25/19 07:01 07:15 07:31 Temperature Pulse Rate 70 70 68 Respiratory 13 13 16 Rate Blood Pressure 161/76 161/76 165/76 O2 Sat by Pulse 100 100 100 Oximetry 06/25/19 06/25/19 06/25/19 07:45 08:00 08:01 Temperature 97.9 F Pulse Rate 67 93 H 66 Respiratory 22 15 19 Rate Blood Pressure 165/76 161/75 O2 Sat by Pulse 100 100 Oximetry 06/25/19 06/25/19 06/25/19 08:15 08:31 08:45 Temperature Pulse Rate 67 69 69 Respiratory 11 L 11 L 10 L Rate Blood Pressure 161/75 152/73 152/73 O2 Sat by Pulse 100 100 100 Oximetry 06/25/19 06/25/19 06/25/19 09:01 09:15 09:31 Temperature Pulse Rate 72 70 69 Respiratory 10 L 11 L 10 L Rate Blood Pressure 144/72 152/74 149/77 O2 Sat by Pulse 100 100 100 Oximetry 06/25/19 06/25/19 06/25/19 09:45 09:55 10:01 Temperature Pulse Rate 69 70 74 Respiratory 13 13 Rate Blood Pressure 149/77 158/79 156/80 O2 Sat by Pulse 100 100 Oximetry 06/25/19 06/25/19 06/25/19 10:15 10:31 10:45 Temperature Pulse Rate 76 69 69 Respiratory 10 L 10 L 11 L Rate Blood Pressure 156/80 149/75 149/75 O2 Sat by Pulse 99 94 100 Oximetry 06/25/19 06/25/19 06/25/19 11:01 11:15 11:31 Temperature Pulse Rate 69 77 68 Respiratory 10 L 12 10 L Rate Blood Pressure 145/73 145/73 142/74 O2 Sat by Pulse 95 97 100 Oximetry 06/25/19 06/25/19 06/25/19 11:45 12:00 12:01 Temperature 98.6 F Pulse Rate 70 73 70 Respiratory 12 15 14 Rate Blood Pressure 142/74 135/69 O2 Sat by Pulse 97 100 Oximetry 06/25/19 06/25/19 06/25/19 12:15 12:31 12:45 Temperature Pulse Rate 65 72 72 Respiratory 10 L 11 L 12 Rate Blood Pressure 135/69 138/75 138/75 O2 Sat by Pulse 97 100 92 Oximetry 06/25/19 06/25/19 06/25/19 13:01 13:15 13:29 Temperature Pulse Rate 68 69 70 Respiratory 12 17 Rate Blood Pressure 148/74 148/74 153/78 O2 Sat by Pulse 100 100 Oximetry 06/25/19 06/25/19 06/25/19 13:31 13:45 14:03 Temperature Pulse Rate 71 70 72 Respiratory 11 L 11 L 13 Rate Blood Pressure 150/74 150/74 136/78 O2 Sat by Pulse 100 96 94 Oximetry 06/25/19 06/25/19 06/25/19 14:15 14:31 14:45 Temperature Pulse Rate 69 71 72 Respiratory 11 L 11 L 11 L Rate Blood Pressure 136/78 151/74 151/74 O2 Sat by Pulse 100 95 89 Oximetry 06/25/19 06/25/19 06/25/19 15:00 15:15 15:31 Temperature Pulse Rate 72 79 72 Respiratory 12 12 12 Rate Blood Pressure 150/73 138/77 O2 Sat by Pulse 93 100 100 Oximetry 06/25/19 06/25/19 06/25/19 15:45 16:00 16:01 Temperature Pulse Rate 73 72 76 Respiratory 11 L 16 12 Rate Blood Pressure 138/77 138/70 O2 Sat by Pulse 91 100 Oximetry - General Appearance General appearance: well-developed, well-nourished, appears stated age EENT: ATNC, PERRL, mucous membranes moist Neck: no JVD Respiratory: Present: Clear to Ascultation Cardiology: regular, S1S2 Gastrointestinal: normoactive bowel sounds Integumentary: no rash, other (+ edema b/l LE ) Neurologic: no focal deficit, alert and oriented x3, strength 5/5, CN 3-12 intact Psychiatric: mood/affect appropriate, cooperative - Lab 06/25/19 03:59 06/25/19 03:59 Most recent lab results Calcium 9.2 mg/dL (8.4-10.2) 06/25/19 03:59 Medications & Allergies - Medications Allergies/Adverse Reactions: Allergies amlodipine besylate [From Norvasc] Allergy (Verified 01/21/14 20:31) Vomiting hydromorphone HCl [From Dilaudid] Allergy (Verified 01/21/14 20:31) Vomiting lisinopril Allergy (Verified 01/21/14 20:31) Unknown Home Medications: Home Medications Medication Instructions Recorded Confirmed Last Taken Type Acetaminophen [Acetaminophen TAB] 650 mg PO Q4H PRN 30 Days tablet 06/21/19 Unknown Rx Aspirin EC 325 mg PO QDAY 30 Days tablet 06/21/19 Unknown Rx AtorvaSTATin [Lipitor] 40 mg PO QHS 30 Days tablet 06/21/19 Unknown Rx Bisacodyl [Dulcolax suppos] 10 mg SD QDAY PRN 30 Days 06/21/19 Unknown Rx supp.rect Dextrose 50% in Water [D50W (25GM) 50 ml IV PRN PRN 30 Days syringe 06/21/19 Unknown Rx Syringe] Ferrous Sulfate [Feosol 325 MG tab] 325 mg PO QDAY tablet 06/21/19 Unknown Rx Folic Acid [Folvite] 1 mg PO QDAY tablet 06/21/19 Unknown Rx Lispro Insulin [HumaLOG] 0 unit SUB-Q ACHS units 06/21/19 Unknown Rx Ondansetron [Zofran ODT TAB] 4 mg PO Q6H PRN 30 Days tab.rapdis 06/21/19 Unknown Rx Sennosides Tab [Senokot] 8.6 mg PO Q12H PRN tablet 06/21/19 Unknown Rx Sodium Chloride 0.9% 1000 ml [NaCl 100 ml IV DIRECT #1 bag 06/21/19 Unknown Rx 0.9 1000 ML] Verapamil Sr [Calan SR] 240 mg PO DAILY tablet 06/21/19 Unknown Rx hydrALAZINE [Apresoline INJ] 10 mg IV Q3H PRN vial 06/21/19 Unknown Rx Active Medications: Generic Name Dose Route Start Last Admin Trade Name Freq PRN Reason Stop Dose Admin Acetaminophen 650 mg 06/21/19 20:13 Tylenol PO Q4H PRN Pain MILD(1-3)/Fever >100.5/GALLARDO Albuterol 2.5 mg 06/21/19 20:11 Proventil IH Q3HRT PRN Shortness Of Breath Amlodipine Besylate 10 mg 06/24/19 12:00 06/25/19 09:55 Norvasc PO 10 mg QDAY CASPER Administration Lipase/Protease/Amylase 1 each 06/23/19 14:31 Pancreaze 10,500 Unit FEEDTUBE PRN PRN For Clogged Feeding Tube Aspirin 325 mg 06/23/19 10:00 06/25/19 09:55 Aspirin PO 325 mg QDAY CASPER Administration Atorvastatin Calcium 40 mg 06/21/19 22:00 06/24/19 22:37 Lipitor PO 40 mg QHS CASPER Administration Bisacodyl 10 mg 06/21/19 20:13 Dulcolax SD QDAY PRN Constipation unrelieved by MOM Clonidine HCl 0.3 mg 06/24/19 19:50 06/25/19 13:29 Catapres PO 0.3 mg Q8HR CASPER Administration Dextrose 50 ml 06/21/19 20:13 D50w (25gm) Syringe IV PRN PRN Hypoglycemia Ferrous Sulfate 308 mg 06/24/19 10:00 06/25/19 10:58 Ferrous Sulfate FEEDTUBE 308 mg DAILY CASPER Administration Folic Acid 1 mg 06/22/19 10:00 06/25/19 09:55 Folvite PO 1 mg QDAY CASPER Administration Heparin Sodium (Porcine) 5,000 unit 06/22/19 22:00 06/25/19 09:56 Heparin SUB-Q 5,000 unit Q12HR CASPER Administration Hydralazine HCl 10 mg 06/21/19 20:13 06/25/19 03:56 Apresoline IV 10 mg Q3H PRN Administration Hypertension Hydralazine HCl 100 mg 06/22/19 14:00 06/25/19 13:28 Apresoline PO 100 mg TID CASPER Administration Nicardipine HCl 50 mg/ Sodium 250 mls @ 25 mls/hr 06/21/19 21:00 06/24/19 14:15 Chloride IV 0 mg/hr TITR CASPER 0 mls/hr Titration Protocol 5 MG/HR Labetalol HCl 200 mg 06/24/19 12:00 06/25/19 09:55 Normodyne PO 200 mg BID CASPER Administration Lansoprazole 30 mg 06/23/19 10:00 06/25/19 09:54 Prevacid Solutab FEEDTUBE 30 mg QDAY CASPER Administration Ondansetron HCl 4 mg 06/21/19 20:13 06/21/19 21:39 Zofran Odt PO 4 mg Q6H PRN Administration Nausea And Vomiting Senna 8.6 mg 06/21/19 20:13 Senokot PO Q12H PRN Laxative Effect Simple Syrup 15 ml 06/23/19 14:31 Simple Syrup FEEDTUBE PRN PRN Hypoglycemia Simple Syrup 30 ml 06/23/19 14:31 Simple Syrup FEEDTUBE PRN PRN Hypoglycemia Sodium Bicarbonate 325 mg 06/23/19 14:31 Sodium Bicarbonate FEEDTUBE PRN PRN For Clogged Feeding Tube Sodium Chloride 10 ml 06/21/19 22:00 06/25/19 09:55 Sodium Chloride Flush Syringe 10 Ml IV 10 ml BID CASPER Administration Sodium Chloride 10 ml 06/21/19 20:11 Sodium Chloride Flush Syringe 10 Ml IV PRN PRN LINE FLUSH
[2019-06-26] MEDS: CATAPRES PO SCH ×3 (08:08→22:09)
[2019-06-26] MEDS: APRESOLINE PO SCH ×3 (08:09→22:09)
[2019-06-26] MEDS: FOLVITE PO SCH (09:55)
[2019-06-26] MEDS: NORVASC PO SCH (09:55)
[2019-06-26] MEDS: PREVACID SOLUTAB FEEDTUBE SCH (09:55)
[2019-06-26] MEDS: ASPIRIN PO SCH (09:55)
[2019-06-26] MEDS: NORMODYNE PO SCH ×2 (09:55→22:09)
[2019-06-26] MEDS: FERROUS SULFATE FEEDTUBE SCH (09:56)
[2019-06-26] MEDS: HEPARIN SUB-Q SCH ×2 (09:56→22:10)
--- NOTE | 2019-06-26 13:40 | Progress Note ---
Assessment and Plan Hypertensive emergency, now on a Cardene drip. Acute encephalopathy. History of diabetes. Acute possibly on chronic kidney injury. Anemia that is normocytic. Cardiomyopathy (HFpEF) H/O cerebrovascular accident Oropharyngeal Dysphagia H/O Depression - MRI shows some volume loss with areas of small infarcts - continue secondary stroke prophylaxis - modified oral diet per [employer] recommendations -Aspiration precautions -Conitnue with PT/OT and speech therapy - continue accucheck's with glycemic control. target blood glucose 140-180 mg/dL - continue to avoid nephrotoxins, adjust medications for CrCL and GFR - continue VTE prophylaxis with heparin; monitor for bleeding - continue Stress ulcer prophylaxis with Prevacid - continue mobility protocols for pressure ulcer preventions - continue other care per attending / other consultants .....stable for transfer out of the ICU CONDITION: FAIR PROGNOSIS: FAIR CODE STATUS: FULL Subjective Date of service: 06/26/19 Principal diagnosis: Hypertensive emergency; Acute encephalopathy; DM II; CHENCHO; CMOP; H/O CVA Interval history: Patient is seen today for: Hypertensive emergency on Cardene drip; Acute encephalopathy; History of diabetes; Acute possibly on chronic kidney injury; Anemia that is normocytic; Cardiomyopathy; H/O cerebrovascular accident. Seen and examined at bedside; 24hour events reviewed; nursing and respiratory c are staff consulted; no adverse overnight events reported to me; resting peacefully in bed; off cardene drip; awake and vocalizing much better. Vitals, labs, medications, chart and imaging reviewed Objective Vital Signs - 12hr 06/26/19 06/26/19 06/26/19 01:45 02:01 02:15 Temperature Pulse Rate 78 72 71 Respiratory 11 L 10 L 15 Rate Blood Pressure 145/79 150/77 146/83 O2 Sat by Pulse 100 100 100 Oximetry 06/26/19 06/26/19 06/26/19 02:31 02:45 03:01 Temperature Pulse Rate 71 73 71 Respiratory 12 11 L 11 L Rate Blood Pressure 133/85 141/84 132/84 O2 Sat by Pulse 100 100 85 Oximetry 06/26/19 06/26/19 06/26/19 03:15 03:16 03:31 Temperature 98.8 F Pulse Rate 72 70 Respiratory 11 L 11 L Rate Blood Pressure 132/84 132/84 O2 Sat by Pulse 100 100 Oximetry 06/26/19 06/26/19 06/26/19 03:45 04:00 04:01 Temperature Pulse Rate 72 94 H 70 Respiratory 11 L 11 L Rate Blood Pressure 124/85 146/83 O2 Sat by Pulse 100 98 Oximetry 06/26/19 06/26/19 06/26/19 04:15 04:31 04:45 Temperature Pulse Rate 69 72 85 Respiratory 12 10 L 15 Rate Blood Pressure 146/83 141/84 143/83 O2 Sat by Pulse 100 100 100 Oximetry 06/26/19 06/26/19 06/26/19 05:01 05:15 05:31 Temperature Pulse Rate 68 72 79 Respiratory 11 L 9 L 19 Rate Blood Pressure 150/87 150/87 147/93 O2 Sat by Pulse 100 98 99 Oximetry 06/26/19 06/26/19 06/26/19 05:45 06:01 06:15 Temperature Pulse Rate 76 78 76 Respiratory 13 12 17 Rate Blood Pressure 147/93 147/93 147/93 O2 Sat by Pulse 99 100 Oximetry 06/26/19 06/26/19 06/26/19 06:31 06:45 07:01 Temperature Pulse Rate 72 73 74 Respiratory 22 10 L 10 L Rate Blood Pressure 147/93 147/93 147/93 O2 Sat by Pulse 100 97 Oximetry 06/26/19 06/26/19 06/26/19 07:15 07:31 07:45 Temperature Pulse Rate 73 80 78 Respiratory 22 10 L 14 Rate Blood Pressure 147/93 147/93 145/94 O2 Sat by Pulse 100 96 100 Oximetry 06/26/19 06/26/19 06/26/19 08:00 08:01 08:08 Temperature 97.4 F L Pulse Rate 71 82 72 Respiratory 15 Rate Blood Pressure 145/94 185/104 O2 Sat by Pulse 100 Oximetry 06/26/19 06/26/19 06/26/19 08:15 08:31 08:45 Temperature Pulse Rate 80 81 80 Respiratory 16 12 12 Rate Blood Pressure 185/104 202/103 190/101 O2 Sat by Pulse 97 100 Oximetry 06/26/19 06/26/19 06/26/19 09:01 09:15 09:31 Temperature Pulse Rate 72 75 76 Respiratory 11 L 12 15 Rate Blood Pressure 190/101 190/101 190/101 O2 Sat by Pulse 86 100 Oximetry 06/26/19 06/26/19 06/26/19 09:45 09:55 10:01 Temperature Pulse Rate 75 69 68 Respiratory 13 11 L Rate Blood Pressure 160/77 160/77 160/77 O2 Sat by Pulse 37 L 93 Oximetry 06/26/19 06/26/19 06/26/19 10:15 10:35 10:45 Temperature Pulse Rate 70 72 Respiratory 12 12 Rate Blood Pressure 139/85 139/85 148/77 O2 Sat by Pulse 100 100 100 Oximetry 06/26/19 06/26/19 06/26/19 11:01 11:15 11:31 Temperature Pulse Rate 68 74 69 Respiratory 12 13 9 L Rate Blood Pressure 160/74 160/74 160/74 O2 Sat by Pulse 100 100 100 Oximetry 06/26/19 06/26/19 06/26/19 11:45 12:00 12:01 Temperature 98.2 F Pulse Rate 69 66 Respiratory 11 L 12 Rate Blood Pressure 150/70 141/68 O2 Sat by Pulse 98 98 Oximetry 06/26/19 06/26/19 06/26/19 12:15 12:31 12:45 Temperature Pulse Rate 66 66 72 Respiratory 12 12 12 Rate Blood Pressure 141/68 143/69 143/69 O2 Sat by Pulse 99 99 100 Oximetry 06/26/19 06/26/19 06/26/19 13:01 13:15 13:31 Temperature Pulse Rate 70 72 70 Respiratory 10 L 17 15 Rate Blood Pressure 146/72 146/72 152/70 O2 Sat by Pulse 98 99 100 Oximetry Constitutional: no acute distress, other (middle aged AAF, normocephalic and atraumatic , not in any distress) Eyes: non-icteric ENT: oropharynx moist Neck: supple, no lymphadenopathy, no JVD Effort: normal Ascultation: Bilateral: clear, diminished breath sounds Percussion: Bilateral: not dull Cardiovascular: regular rate and rhythm, other (S1,S2) Gastrointestinal: normoactive bowel sounds, soft, non-tender, non-distended Integumentary: normal Extremities: no cyanosis, no edema, pulses normal, no ischemia or petechiae Neurologic: pupils equal and round, CN II-XII normal, other (left hemiparesis, obeying one step commands, vocalizing) Psychiatric: mood appropriate, affect normal CBC and BMP: 06/27/19 04:30 06/30/19 05:20 Abnormal lab findings: Abnormal Labs 06/22/19 06/23/19 06/24/19 19:38 05:36 04:05 WBC Hgb 9.6 L Hct 30.1 L MCH 26 L RDW 20.7 H Sodium Chloride 107.7 H Carbon Dioxide 20 L BUN 34 H Creatinine 3.7 H Glucose Lactic Acid 0.50 L 06/24/19 06/25/19 06/25/19 04:05 03:59 03:59 WBC 3.6 L Hgb Hct MCH 27 L RDW 20.1 H Sodium 147 H Chloride 109.2 H Carbon Dioxide BUN 41 H 45 H Creatinine 4.0 H 3.6 H Glucose 105 H 124 H Lactic Acid Allied health notes reviewed: nursing
--- NOTE | 2019-06-26 13:49 | Progress Note ---
Assessment and Plan - Patient Problems (1) Acute kidney injury superimposed on chronic kidney disease Current Visit: No Status: Acute Plan to address problem: stable renal function. cont to hold lasix. no acute indication for renal replacement therapy. Will monitor lytes/renal parameters and make further recommendations. (2) Hypertensive emergency Current Visit: No Status: Acute Plan to address problem: BP improved on current BP regimen. pt weaned off cardene gtt. JUANITA-I/ARB on hold due to CHENCHO on CKD. lasix held due to worsening eGFR and euvolemic status. (3) Systolic CHF, acute on chronic Current Visit: No Status: Chronic Plan to address problem: pt appears euvolemic, held lasix due to worsening eGFR (4) Type 2 diabetes mellitus with diabetic chronic kidney disease Current Visit: No Status: Chronic Plan to address problem: Blood sugar management by primary attending. Subjective Date of service: 06/26/19 Principal diagnosis: Hypertensive emergency; Acute encephalopathy; DM II; CHENCHO; CMOP; H/O CVA Interval history: Pt awake alert. in no acute respiratory distress. pt remains off cardene gtt Objective - Vital Signs Vital signs: Vital Signs - 12hr 06/26/19 06/26/19 06/26/19 02:01 02:15 02:31 Temperature Pulse Rate 72 71 71 Respiratory 10 L 15 12 Rate Blood Pressure 150/77 146/83 133/85 O2 Sat by Pulse 100 100 100 Oximetry 06/26/19 06/26/19 06/26/19 02:45 03:01 03:15 Temperature Pulse Rate 73 71 72 Respiratory 11 L 11 L 11 L Rate Blood Pressure 141/84 132/84 132/84 O2 Sat by Pulse 100 85 100 Oximetry 06/26/19 06/26/19 06/26/19 03:16 03:31 03:45 Temperature 98.8 F Pulse Rate 70 72 Respiratory 11 L 11 L Rate Blood Pressure 132/84 124/85 O2 Sat by Pulse 100 100 Oximetry 06/26/19 06/26/19 06/26/19 04:00 04:01 04:15 Temperature Pulse Rate 94 H 70 69 Respiratory 11 L 12 Rate Blood Pressure 146/83 146/83 O2 Sat by Pulse 98 100 Oximetry 06/26/19 06/26/19 06/26/19 04:31 04:45 05:01 Temperature Pulse Rate 72 85 68 Respiratory 10 L 15 11 L Rate Blood Pressure 141/84 143/83 150/87 O2 Sat by Pulse 100 100 100 Oximetry 06/26/19 06/26/19 06/26/19 05:15 05:31 05:45 Temperature Pulse Rate 72 79 76 Respiratory 9 L 19 13 Rate Blood Pressure 150/87 147/93 147/93 O2 Sat by Pulse 98 99 99 Oximetry 06/26/19 06/26/19 06/26/19 06:01 06:15 06:31 Temperature Pulse Rate 78 76 72 Respiratory 12 17 22 Rate Blood Pressure 147/93 147/93 147/93 O2 Sat by Pulse 100 100 Oximetry 06/26/19 06/26/19 06/26/19 06:45 07:01 07:15 Temperature Pulse Rate 73 74 73 Respiratory 10 L 10 L 22 Rate Blood Pressure 147/93 147/93 147/93 O2 Sat by Pulse 97 100 Oximetry 06/26/19 06/26/19 06/26/19 07:31 07:45 08:00 Temperature 97.4 F L Pulse Rate 80 78 71 Respiratory 10 L 14 Rate Blood Pressure 147/93 145/94 O2 Sat by Pulse 96 100 Oximetry 06/26/19 06/26/19 06/26/19 08:01 08:08 08:15 Temperature Pulse Rate 82 72 80 Respiratory 15 16 Rate Blood Pressure 145/94 185/104 185/104 O2 Sat by Pulse 100 97 Oximetry 06/26/19 06/26/19 06/26/19 08:31 08:45 09:01 Temperature Pulse Rate 81 80 72 Respiratory 12 12 11 L Rate Blood Pressure 202/103 190/101 190/101 O2 Sat by Pulse 100 86 Oximetry 06/26/19 06/26/19 06/26/19 09:15 09:31 09:45 Temperature Pulse Rate 75 76 75 Respiratory 12 15 13 Rate Blood Pressure 190/101 190/101 160/77 O2 Sat by Pulse 100 37 L Oximetry 06/26/19 06/26/19 06/26/19 09:55 10:01 10:15 Temperature Pulse Rate 69 68 70 Respiratory 11 L 12 Rate Blood Pressure 160/77 160/77 139/85 O2 Sat by Pulse 93 100 Oximetry 06/26/19 06/26/19 06/26/19 10:35 10:45 11:01 Temperature Pulse Rate 72 68 Respiratory 12 12 Rate Blood Pressure 139/85 148/77 160/74 O2 Sat by Pulse 100 100 100 Oximetry 06/26/19 06/26/19 06/26/19 11:15 11:31 11:45 Temperature Pulse Rate 74 69 69 Respiratory 13 9 L 11 L Rate Blood Pressure 160/74 160/74 150/70 O2 Sat by Pulse 100 100 98 Oximetry 06/26/19 06/26/19 06/26/19 12:00 12:01 12:15 Temperature 98.2 F Pulse Rate 66 66 Respiratory 12 12 Rate Blood Pressure 141/68 141/68 O2 Sat by Pulse 98 99 Oximetry 06/26/19 06/26/19 06/26/19 12:31 12:45 13:01 Temperature Pulse Rate 66 72 70 Respiratory 12 12 10 L Rate Blood Pressure 143/69 143/69 146/72 O2 Sat by Pulse 99 100 98 Oximetry 06/26/19 06/26/19 13:15 13:31 Temperature Pulse Rate 72 70 Respiratory 17 15 Rate Blood Pressure 146/72 152/70 O2 Sat by Pulse 99 100 Oximetry - General Appearance General appearance: well-developed, well-nourished, appears stated age EENT: ATNC, PERRL, mucous membranes moist Neck: no JVD Respiratory: Present: Clear to Ascultation Cardiology: regular, S1S2 Gastrointestinal: normoactive bowel sounds Integumentary: no rash, other (no edema ) Neurologic: no focal deficit, alert and oriented x3, strength 5/5, CN 3-12 intact Psychiatric: mood/affect appropriate, cooperative - Lab 06/25/19 03:59 06/25/19 03:59 Most recent lab results Calcium 9.2 mg/dL (8.4-10.2) 06/25/19 03:59 Medications & Allergies - Medications Allergies/Adverse Reactions: Allergies amlodipine besylate [From Norvasc] Allergy (Verified 01/21/14 20:31) Vomiting hydromorphone HCl [From Dilaudid] Allergy (Verified 01/21/14 20:31) Vomiting lisinopril Allergy (Verified 01/21/14 20:31) Unknown Home Medications: Home Medications Medication Instructions Recorded Confirmed Last Taken Type Acetaminophen [Acetaminophen TAB] 650 mg PO Q4H PRN 30 Days tablet 06/21/19 Unknown Rx Aspirin EC 325 mg PO QDAY 30 Days tablet 06/21/19 Unknown Rx AtorvaSTATin [Lipitor] 40 mg PO QHS 30 Days tablet 06/21/19 Unknown Rx Bisacodyl [Dulcolax suppos] 10 mg AR QDAY PRN 30 Days 06/21/19 Unknown Rx supp.rect Dextrose 50% in Water [D50W (25GM) 50 ml IV PRN PRN 30 Days syringe 06/21/19 Unknown Rx Syringe] Ferrous Sulfate [Feosol 325 MG tab] 325 mg PO QDAY tablet 06/21/19 Unknown Rx Folic Acid [Folvite] 1 mg PO QDAY tablet 06/21/19 Unknown Rx Lispro Insulin [HumaLOG] 0 unit SUB-Q ACHS units 06/21/19 Unknown Rx Ondansetron [Zofran ODT TAB] 4 mg PO Q6H PRN 30 Days tab.rapdis 06/21/19 Unknown Rx Sennosides Tab [Senokot] 8.6 mg PO Q12H PRN tablet 06/21/19 Unknown Rx Sodium Chloride 0.9% 1000 ml [NaCl 100 ml IV DIRECT #1 bag 06/21/19 Unknown Rx 0.9 1000 ML] Verapamil Sr [Calan SR] 240 mg PO DAILY tablet 06/21/19 Unknown Rx hydrALAZINE [Apresoline INJ] 10 mg IV Q3H PRN vial 06/21/19 Unknown Rx Active Medications: Generic Name Dose Route Start Last Admin Trade Name Freq PRN Reason Stop Dose Admin Acetaminophen 650 mg 06/21/19 20:13 Tylenol PO Q4H PRN Pain MILD(1-3)/Fever >100.5/GALLARDO Albuterol 2.5 mg 06/21/19 20:11 Proventil IH Q3HRT PRN Shortness Of Breath Amlodipine Besylate 10 mg 06/24/19 12:00 06/26/19 09:55 Norvasc PO 10 mg QDAY CASPER Administration Lipase/Protease/Amylase 1 each 06/23/19 14:31 Pancrekeren Lugo 10,500 Unit FEEDTUBE PRN PRN For Clogged Feeding Tube Aspirin 325 mg 06/23/19 10:00 06/26/19 09:55 Aspirin PO 325 mg QDAY CASPER Administration Atorvastatin Calcium 40 mg 06/21/19 22:00 06/25/19 21:20 Lipitor PO 40 mg QHS CASPER Administration Bisacodyl 10 mg 06/21/19 20:13 Dulcolax AR QDAY PRN Constipation unrelieved by MOM Clonidine HCl 0.3 mg 06/24/19 19:50 06/26/19 08:08 Catapres PO 0.3 mg Q8HR CASPER Administration Dextrose 50 ml 06/21/19 20:13 D50w (25gm) Syringe IV PRN PRN Hypoglycemia Ferrous Sulfate 308 mg 06/24/19 10:00 06/26/19 09:56 Ferrous Sulfate FEEDTUBE 308 mg DAILY CASPER Administration Folic Acid 1 mg 06/22/19 10:00 06/26/19 09:55 Folvite PO 1 mg QDAY CASPER Administration Heparin Sodium (Porcine) 5,000 unit 06/22/19 22:00 06/26/19 09:56 Heparin SUB-Q 5,000 unit Q12HR CASPER Administration Hydralazine HCl 10 mg 06/21/19 20:13 06/25/19 03:56 Apresoline IV 10 mg Q3H PRN Administration Hypertension Hydralazine HCl 100 mg 06/22/19 14:00 06/26/19 08:09 Apresoline PO 100 mg TID CASPER Administration Labetalol HCl 200 mg 06/24/19 12:00 06/26/19 09:55 Normodyne PO 200 mg BID CASPER Administration Lansoprazole 30 mg 06/23/19 10:00 06/26/19 09:55 Prevacid Solutab FEEDTUBE 30 mg QDAY CASPER Administration Ondansetron HCl 4 mg 06/21/19 20:13 06/21/19 21:39 Zofran Odt PO 4 mg Q6H PRN Administration Nausea And Vomiting Senna 8.6 mg 06/21/19 20:13 Senokot PO Q12H PRN Laxative Effect Simple Syrup 15 ml 06/23/19 14:31 Simple Syrup FEEDTUBE PRN PRN Hypoglycemia Simple Syrup 30 ml 06/23/19 14:31 Simple Syrup FEEDTUBE PRN PRN Hypoglycemia Sodium Bicarbonate 325 mg 06/23/19 14:31 Sodium Bicarbonate FEEDTUBE PRN PRN For Clogged Feeding Tube Sodium Chloride 10 ml 06/21/19 22:00 06/25/19 21:24 Sodium Chloride Flush Syringe 10 Ml IV 10 ml BID CASPER Administration Sodium Chloride 10 ml 06/21/19 20:11 Sodium Chloride Flush Syringe 10 Ml IV PRN PRN LINE FLUSH
[2019-06-26] MEDS: SODIUM CHLORIDE FLUSH SYRINGE 10 ML IV SCH ×2 (14:56→22:10)
--- NOTE | 2019-06-26 17:00 | Progress Note ---
Assessment and Plan Assessment and plan: Patient is 49-year-old woman with a history of anemia, diabetes, heart failure, stroke, hypertension, COPD, CVA with left side deficit for which she was in [facility] rehabilitation unit from [facility], who was about to be discharge from discharge to the acute Inpatient unit for confusion and elevated blood pressure with systolic BP over 200, inability to talk which began on the weekend per Dr. Singh. * MRI brain without contrast IMPRESSION: Small areas of subacute ischemia are identified in the head of the right caudate nucleus, left parietal white matter and left splenium of the corpus callosum as described. Volume loss. Advanced chronic white matter changes. Chronic focal infarcts in the right zavala radiata and inferior left cerebellum. -New Acute Left ischemic stroke while in Rehab unit: treat with ASA and statin -Hypertensive emergency; off Cardene drip on 06/25/19, passed swallow evaluation -Acute metabolic Hypertensive encephalopathy: Improving as blood pressure comes down -CKD stage 4, unchanged, avoid nephrotoxins, nephrology consult -hx of DM appears to be in remission, as patient a1c is 4.9 last month, she has had normal a1c of < 6 since 2017, no need for insulins at this time -Moderate protein malnutrition, Dietitian consult -Diastolic CHF by history; keep euvolemic -Dypshagia, SS consulted, input noted -Depression, MH consult -DVT prophylaxis reviewed passed swallow evaluation today, will remove NGT, start mechanical soft diet Disposition: transfer out of icu, trying to get to inpatient rehab History Interval history: Patient was seen and examined. Follow-up on current diagnosis of AMS. No ov ernight events reported to me. Imaging, nursing note, chart, labs and old chart reviewed. Discussed with patient. Hospitalist Physical - Physical exam Narrative exam: Gen: chronically ill appearing, NAD, Awake, aphasia HEENT: NCAT, EOMI, PERRL, OP with ngt in place Neck: supple, no adenopathy, no thyromegaly, no JVD CVS/Heart: RRR, normal S1S2, pulses present bilaterally Chest/Lungs: CTA B, Symmetrical chest expansion, good air entry bilaterally GI/Abdomen: soft, NTND, good bowel sounds, no guarding or rebound /Bladder: no suprapubic tenderness, no CVA or paraspinal tenderness Extermity/Skin: no c/c/e, no obvious rash MSK: FROM x 3 Neuro: CN 2-12 grossly intact, dysarthria Psych: calm - Constitutional Vitals: Temp Pulse Resp BP Pulse Ox 98.0 F 64 11 L 154/83 100 06/26/19 15:58 06/26/19 15:01 06/26/19 15:01 06/26/19 15:01 06/26/19 15:01 General appearance: Absent: mild distress Results - Labs CBC & Chem 7: 06/25/19 03:59 06/25/19 03:59 Labs: Laboratory Last Values WBC 3.6 K/mm3 (4.5-11.0) L 06/25/19 03:59 RBC 3.92 M/mm3 (3.65-5.03) 06/25/19 03:59 Hgb 10.4 gm/dl (10.1-14.3) 06/25/19 03:59 Hct 31.6 % (30.3-42.9) 06/25/19 03:59 MCV 81 fl (79-97) 06/25/19 03:59 MCH 27 pg (28-32) L 06/25/19 03:59 MCHC 33 % (30-34) 06/25/19 03:59 RDW 20.1 % (13.2-15.2) H 06/25/19 03:59 Plt Count 224 K/mm3 (140-440) 06/25/19 03:59 Sodium 143 mmol/L (137-145) 06/25/19 03:59 Potassium 4.3 mmol/L (3.6-5.0) 06/25/19 03:59 Chloride 106.7 mmol/L (98-107) 06/25/19 03:59 Carbon Dioxide 25 mmol/L (22-30) 06/25/19 03:59 16 mmol/L 06/25/19 03:59 BUN 45 mg/dL (7-17) H 06/25/19 03:59 3.6 mg/dL (0.7-1.2) H 06/25/19 03:59 Estimated GFR 16 ml/min 06/25/19 03:59 13 % 06/25/19 03:59 Glucose 124 mg/dL (65-100) H 06/25/19 03:59 Lactic Acid 0.50 mmol/L (0.7-2.0) L 06/22/19 19:38 Calcium 9.2 mg/dL (8.4-10.2) 06/25/19 03:59 0.20 mg/dL (0.00-1.30) 06/22/19 19:38 Active Medications - Current Medications Current Medications: Generic Name Dose Route Start Last Admin Trade Name Freq PRN Reason Stop Dose Admin Acetaminophen 650 mg 06/21/19 20:13 Tylenol PO Q4H PRN Pain MILD(1-3)/Fever >100.5/GALLARDO Albuterol 2.5 mg 06/21/19 20:11 Proventil IH Q3HRT PRN Shortness Of Breath Amlodipine Besylate 10 mg 06/24/19 12:00 06/26/19 09:55 Norvasc PO 10 mg QDAY CASPER Administration Lipase/Protease/Amylase 1 each 06/23/19 14:31 Pancreazahsan Lugo 10,500 Unit FEEDTUBE PRN PRN For Clogged Feeding Tube Aspirin 325 mg 06/23/19 10:00 06/26/19 09:55 Aspirin PO 325 mg QDAY CASPER Administration Atorvastatin Calcium 40 mg 06/21/19 22:00 06/25/19 21:20 Lipitor PO 40 mg QHS CASPER Administration Bisacodyl 10 mg 06/21/19 20:13 Dulcolax NC QDAY PRN Constipation unrelieved by MOM Clonidine HCl 0.3 mg 06/24/19 19:50 06/26/19 14:55 Catapres PO 0.3 mg Q8HR CASPER Administration Dextrose 50 ml 06/21/19 20:13 D50w (25gm) Syringe IV PRN PRN Hypoglycemia Ferrous Sulfate 308 mg 06/24/19 10:00 06/26/19 09:56 Ferrous Sulfate FEEDTUBE 308 mg DAILY CASPER Administration Folic Acid 1 mg 06/22/19 10:00 06/26/19 09:55 Folvite PO 1 mg QDAY CASPER Administration Heparin Sodium (Porcine) 5,000 unit 06/22/19 22:00 06/26/19 09:56 Heparin SUB-Q 5,000 unit Q12HR CASPER Administration Hydralazine HCl 10 mg 06/21/19 20:13 06/25/19 03:56 Apresoline IV 10 mg Q3H PRN Administration Hypertension Hydralazine HCl 100 mg 06/22/19 14:00 06/26/19 14:56 Apresoline PO 100 mg TID CASPER Administration Labetalol HCl 200 mg 06/24/19 12:00 06/26/19 09:55 Normodyne PO 200 mg BID CASPER Administration Lansoprazole 30 mg 06/23/19 10:00 06/26/19 09:55 Prevacid Solutab FEEDTUBE 30 mg QDAY CASPER Administration Ondansetron HCl 4 mg 06/21/19 20:13 06/21/19 21:39 Zofran Odt PO 4 mg Q6H PRN Administration Nausea And Vomiting Senna 8.6 mg 06/21/19 20:13 Senokot PO Q12H PRN Laxative Effect Simple Syrup 15 ml 06/23/19 14:31 Simple Syrup FEEDTUBE PRN PRN Hypoglycemia Simple Syrup 30 ml 06/23/19 14:31 Simple Syrup FEEDTUBE PRN PRN Hypoglycemia Sodium Bicarbonate 325 mg 06/23/19 14:31 Sodium Bicarbonate FEEDTUBE PRN PRN For Clogged Feeding Tube Sodium Chloride 10 ml 06/21/19 22:00 06/26/19 14:56 Sodium Chloride Flush Syringe 10 Ml IV 10 ml BID CASPER Administration Sodium Chloride 10 ml 06/21/19 20:11 Sodium Chloride Flush Syringe 10 Ml IV PRN PRN LINE FLUSH Nutrition/Malnutrition Assess - Dietary Evaluation Nutrition/Malnutrition Findings: Nutrition Notes Start: 06/23/19 14:10 Freq: Status: Active Protocol: Document 06/25/19 13:38 RM (Rec: 06/25/19 13:43 RM [id number]) Nutrition Notes Initial or Follow up Reassessment Current Diagnosis Acute Kidney Injury,CKD(stage I-IV),Diabetes,Heart Failure, Stroke Other Pertinent Diagnosis Encephalopathy, Dysphagia, Depression Current Diet Nepro at 40 ml/hr Labs/Tests K 4.3 BUN 45 Cr 3.6 Pertinent Medications Zofran Height 5 ft 4 in Weight 77.7 kg Campbell Body Weight (kg) 54.54 BMI 29.4 Subjective/Other Information Observed Nepro infusing at goal rate. Per nurse pt is tolerating TF. Percent of energy/protein needs met: 100%/84% Burn Absent Trauma Absent #1 Nutrition Diagnosis Inadequate oral intake Diagnosis Progress(for reassessment Continues documentation) Is patient on ventilator? No Is Patient Ambulatory and/or Out of Bed No REE-([facility]-confined to bed) 6595.090 Calculation Used for Recommendations [facility] Additional Notes Protein Needs: 93-155g (1.2-2g /kg) Fluid Needs: 1 ml/kcal Nutrition Intervention Nutrition Support: Nepro at 40 ml/hr Water flush of 150 mls q 4 hrs Kcal 1,728 Protein (gm) 78 Fluid (mL) 698 Goal #1 TF tolerance Goal #2 Continue to meet at least 80% of calorie and protein needs via TF Anticipated Discharge Needs: Unable to determine at this time Follow-Up By: 07/01/19 Additional Comments Follow for TF tolerance
[2019-06-27 05:14] LABS: Hematocrit 31.7 % (30.3-42.9); Hemoglobin 10.2 gm/dl (10.1-14.3); Mean Corpuscular HGB Conc 32 % (30-34); Mean Corpuscular Volume 81 fl (79-97); Platelet Count 214 K/mm3 (140-440); Red Cell Distribution Width 19.6 % (13.2-15.2)
[2019-06-27 05:29] LABS: Calcium 8.9 mg/dL (8.4-10.2)
[2019-06-27] MEDS: CATAPRES PO SCH ×3 (05:40→21:38)
[2019-06-27] MEDS: APRESOLINE PO SCH ×3 (08:10→21:39)
[2019-06-27] MEDS: NORVASC PO SCH (09:35)
[2019-06-27] MEDS: ASPIRIN PO SCH (09:35)
[2019-06-27] MEDS: FOLVITE PO SCH (09:35)
[2019-06-27] MEDS: PREVACID SOLUTAB FEEDTUBE SCH (09:35)
[2019-06-27] MEDS: HEPARIN SUB-Q SCH ×2 (09:35→21:39)
[2019-06-27] MEDS: NORMODYNE PO SCH ×2 (09:35→21:39)
[2019-06-27] MEDS: SODIUM CHLORIDE FLUSH SYRINGE 10 ML IV SCH ×2 (09:39→21:49)
--- NOTE | 2019-06-27 11:19 | Progress Note ---
Assessment and Plan Hypertensive emergency (resolved) Acute encephalopathy (Toxic/Met) History of diabetes. Acute possibly on chronic kidney injury. Anemia that is normocytic. Cardiomyopathy (HFpEF) H/O cerebrovascular accident Oropharyngeal Dysphagia H/O Depression - continue scheduled labetalol orally (If BP remains elevated will increase to 300 mg bid) - continue clonidine at 0.3 mg q8h - continue prn hydralazine I.V. - MRI showed subacute CVA - continue secondary stroke prophylaxis - continue aspirin - continue lipitor - neurology evaluation ongoing - continue fall precautions - PT/OT as tolerated - continue aspiration precautions - continue accucheck's with glycemic control. target blood glucose 140-180 mg/dL - continue to avoid nephrotoxins, adjust medications for CrCL and GFR - continue VTE prophylaxis with heparin; monitor for bleeding - continue Stress ulcer prophylaxis with Prevacid - PT/OT/ROM exercises as tolerated - continue mobility protocols for pressure ulcer prophylaxis - continue other care per attending / other consultants ..... re-evaluate in am & prn Subjective Date of service: 06/27/19 Principal diagnosis: Hypertensive emergency; Acute encephalopathy; DM II; CHENCHO; CMOP; H/O CVA Interval history: Patient is seen today for: Hypertensive emergency on Cardene drip; Acute encephalopathy; History of diabetes; Acute possibly on chronic kidney injury; Anemia that is normocytic; Cardiomyopathy; H/O cerebrovascular accident. Seen and examined at bedside; 24hour events reviewed; nursing and respiratory care staff consulted; no adverse overnight events reported to me; resting peacefully in bed; looks and feels much better; eating regular consistency meal; No N/V/F/C; denies acute chest pains or palpitations Objective Vital Signs - 12hr 06/26/19 06/27/19 06/27/19 23:28 03:56 07:58 Temperature 98.3 F 98.4 F Pulse Rate 66 103 H Respiratory 18 18 Rate Respiratory 16 Rate [Left shoulder] Blood Pressure 167/78 143/63 O2 Sat by Pulse 98 89 Oximetry 06/27/19 06/27/19 06/27/19 08:13 09:45 10:50 Temperature 98.6 F 98.5 F Pulse Rate 60 63 65 Respiratory 18 18 Rate Respiratory Rate [Left shoulder] Blood Pressure 163/68 151/73 O2 Sat by Pulse 99 99 Oximetry Constitutional: no acute distress, other (middle aged AAF, normocephalic and atraumatic with mildly increased respiratory effort at rest) Eyes: non-icteric ENT: oropharynx moist, other (mallampati 3) Neck: supple, no lymphadenopathy, no JVD Effort: normal Ascultation: Bilateral: clear Percussion: Bilateral: not dull Cardiovascular: regular rate and rhythm Gastrointestinal: normoactive bowel sounds, soft, non-tender, non-distended Integumentary: normal Extremities: no cyanosis, no edema, pulses normal, no ischemia or petechiae Neurologic: normal mental status, pupils equal and round, CN II-XII normal, other (left hemiparesis) Psychiatric: mood appropriate, affect normal CBC and BMP: 06/27/19 04:30 06/27/19 04:30 Abnormal lab findings: Abnormal Labs 06/22/19 06/23/19 06/24/19 19:38 05:36 04:05 WBC Hgb 9.6 L Hct 30.1 L MCH 26 L RDW 20.7 H Sodium Chloride 107.7 H Carbon Dioxide 20 L BUN 34 H Creatinine 3.7 H Glucose Lactic Acid 0.50 L 06/24/19 06/25/19 06/25/19 04:05 03:59 03:59 WBC 3.6 L Hgb Hct MCH 27 L RDW 20.1 H Sodium 147 H Chloride 109.2 H Carbon Dioxide BUN 41 H 45 H Creatinine 4.0 H 3.6 H Glucose 105 H 124 H Lactic Acid 06/27/19 06/27/19 04:30 04:30 WBC 3.2 L Hgb Hct MCH 26 L RDW 19.6 H Sodium Chloride Carbon Dioxide BUN 50 H Creatinine 3.1 H Glucose 127 H Lactic Acid Allied health notes reviewed: nursing
--- NOTE | 2019-06-27 12:04 | Progress Note ---
Assessment and Plan - Patient Problems (1) Acute kidney injury superimposed on chronic kidney disease Current Visit: No Status: Acute Plan to address problem: renal function improving with improved BP control. avoid nephrotoxins, NSAIDs, IV contrast. Will monitor lytes/renal parameters and make further recommendations. (2) Hypertensive emergency Current Visit: No Status: Acute Plan to address problem: BP improved on current BP regimen. pt weaned off cardene gtt. JUANITA-I/ARB on hold due to CHENCHO on CKD. lasix held due to worsening eGFR and euvolemic status. (3) Systolic CHF, acute on chronic Current Visit: No Status: Chronic Plan to address problem: pt appears euvolemic, held lasix due to worsening eGFR (4) Type 2 diabetes mellitus with diabetic chronic kidney disease Current Visit: No Status: Chronic Plan to address problem: Blood sugar management by primary attending. Subjective Date of service: 06/27/19 Principal diagnosis: Hypertensive emergency; Acute encephalopathy; DM II; CHENCHO; CMOP; H/O CVA Interval history: Pt awake alert. in no acute respiratory distress. started on po diet, denies coughing, SOB, CP Objective - Vital Signs Vital signs: Vital Signs - 12hr 06/27/19 06/27/19 06/27/19 03:56 07:58 08:13 Temperature 98.4 F 98.6 F Pulse Rate 103 H 60 Respiratory 18 18 Rate Respiratory 16 Rate [Left shoulder] Blood Pressure 143/63 163/68 O2 Sat by Pulse 89 99 Oximetry 06/27/19 06/27/19 09:45 10:50 Temperature 98.5 F Pulse Rate 63 65 Respiratory 18 Rate Respiratory Rate [Left shoulder] Blood Pressure 151/73 O2 Sat by Pulse 99 Oximetry - General Appearance General appearance: well-developed, well-nourished, appears stated age EENT: ATNC, PERRL, mucous membranes moist Neck: no JVD Respiratory: Present: Clear to Ascultation Cardiology: regular, S1S2 Gastrointestinal: normoactive bowel sounds Integumentary: no rash, other (no edema ) Neurologic: no focal deficit, alert and oriented x3, facial droop Psychiatric: mood/affect appropriate, cooperative - Lab 06/27/19 04:30 06/27/19 04:30 Most recent lab results Calcium 8.9 mg/dL (8.4-10.2) 06/27/19 04:30 Medications & Allergies - Medications Allergies/Adverse Reactions: Allergies amlodipine besylate [From Norvasc] Allergy (Verified 01/21/14 20:31) Vomiting hydromorphone HCl [From Dilaudid] Allergy (Verified 01/21/14 20:31) Vomiting lisinopril Allergy (Verified 01/21/14 20:31) Unknown Home Medications: Home Medications Medication Instructions Recorded Confirmed Last Taken Type Acetaminophen [Acetaminophen TAB] 650 mg PO Q4H PRN 30 Days tablet 06/21/19 06/27/19 Unknown Rx Aspirin EC 325 mg PO QDAY 30 Days tablet 06/21/19 06/27/19 Unknown Rx AtorvaSTATin [Lipitor] 40 mg PO QHS 30 Days tablet 06/21/19 06/27/19 Unknown Rx Ferrous Sulfate [Feosol 325 MG tab] 325 mg PO QDAY tablet 06/21/19 06/27/19 Unknown Rx Folic Acid [Folvite] 1 mg PO QDAY tablet 06/21/19 06/27/19 Unknown Rx Ondansetron [Zofran ODT TAB] 4 mg PO Q6H PRN 30 Days tab.rapdis 06/21/19 06/27/19 Unknown Rx Clonidine HCl [Catapres] 0.3 mg PO BID 06/27/19 06/27/19 Unknown History Insulin Glargine [Lantus] 5 units SQ QHS 06/27/19 06/27/19 Unknown History Labetalol HCl [Labetalol 300mg TAB] 300 mg PO BID 06/27/19 06/27/19 Unknown History hydrALAZINE [Apresoline TAB] 100 mg PO TID 06/27/19 06/27/19 Unknown History Active Medications: Generic Name Dose Route Start Last Admin Trade Name Freq PRN Reason Stop Dose Admin Acetaminophen 650 mg 06/21/19 20:13 Tylenol PO Q4H PRN Pain MILD(1-3)/Fever >100.5/GALLARDO Albuterol 2.5 mg 06/21/19 20:11 Proventil IH Q3HRT PRN Shortness Of Breath Amlodipine Besylate 10 mg 06/24/19 12:00 06/27/19 09:35 Norvasc PO 10 mg QDAY CASPER Administration Lipase/Protease/Amylase 1 each 06/23/19 14:31 Pancrekeren Lugo 10,500 Unit FEEDTUBE PRN PRN For Clogged Feeding Tube Aspirin 325 mg 06/23/19 10:00 06/27/19 09:35 Aspirin PO 325 mg QDAY CASPER Administration Atorvastatin Calcium 40 mg 06/21/19 22:00 06/26/19 22:10 Lipitor PO 40 mg QHS CASPER Administration Bisacodyl 10 mg 06/21/19 20:13 Dulcolax [place] QDAY PRN Constipation unrelieved by MOM Clonidine HCl 0.3 mg 06/24/19 19:50 06/27/19 05:40 Catapres PO 0.3 mg Q8HR CASPER Administration Dextrose 50 ml 06/21/19 20:13 D50w (25gm) Syringe IV PRN PRN Hypoglycemia Ferrous Sulfate 308 mg 06/24/19 10:00 06/26/19 09:56 Ferrous Sulfate FEEDTUBE 308 mg DAILY CASPER Administration Folic Acid 1 mg 06/22/19 10:00 06/27/19 09:35 Folvite PO 1 mg QDAY CASPER Administration Heparin Sodium (Porcine) 5,000 unit 06/22/19 22:00 06/27/19 09:35 Heparin SUB-Q 5,000 unit Q12HR CASPER Administration Hydralazine HCl 10 mg 06/21/19 20:13 06/25/19 03:56 Apresoline IV 10 mg Q3H PRN Administration Hypertension Hydralazine HCl 100 mg 06/22/19 14:00 06/27/19 08:10 Apresoline PO 100 mg TID CASPER Administration Labetalol HCl 200 mg 06/24/19 12:00 06/27/19 09:35 Normodyne PO 200 mg BID CASPER Administration Lansoprazole 30 mg 06/23/19 10:00 06/27/19 09:35 Prevacid Solutab FEEDTUBE 30 mg QDAY CASPER Administration Ondansetron HCl 4 mg 06/21/19 20:13 06/21/19 21:39 Zofran Odt PO 4 mg Q6H PRN Administration Nausea And Vomiting Senna 8.6 mg 06/21/19 20:13 Senokot PO Q12H PRN Laxative Effect Simple Syrup 15 ml 06/23/19 14:31 Simple Syrup FEEDTUBE PRN PRN Hypoglycemia Simple Syrup 30 ml 06/23/19 14:31 Simple Syrup FEEDTUBE PRN PRN Hypoglycemia Sodium Bicarbonate 325 mg 06/23/19 14:31 Sodium Bicarbonate FEEDTUBE PRN PRN For Clogged Feeding Tube Sodium Chloride 10 ml 06/21/19 22:00 06/27/19 09:39 Sodium Chloride Flush Syringe 10 Ml IV 10 ml BID CASPER Administration Sodium Chloride 10 ml 06/21/19 20:11 Sodium Chloride Flush Syringe 10 Ml IV PRN PRN LINE FLUSH
[2019-06-27] MEDS: FERROUS SULFATE FEEDTUBE SCH (12:21)
--- NOTE | 2019-06-27 14:45 | Progress Note ---
Assessment and Plan Assessment and plan: Patient is 49-year-old woman with a history of anemia, diabetes, heart failure, stroke, hypertension, COPD, CVA with left side deficit for which she was in [facility] rehabilitation unit from [facility], who was about to be discharge from discharge to the acute Inpatient unit for confusion and elevated blood pressure with systolic BP over 200, inability to talk which began on the weekend per Dr. Singh. * MRI brain without contrast IMPRESSION: Small areas of subacute ischemia are identified in the head of the right caudate nucleus, left parietal white matter and left splenium of the corpus callosum as described. Volume loss. Advanced chronic white matter changes. Chronic focal infarcts in the right zavala radiata and inferior left cerebellum. -New Acute Left ischemic stroke while in Rehab unit: treat with ASA and statin -Hypertensive emergency; off Cardene drip on 06/25/19, passed swallow evaluation -Acute metabolic Hypertensive encephalopathy: Improving as blood pressure comes down -CKD stage 4, unchanged, avoid nephrotoxins, nephrology consult -hx of DM appears to be in remission, as patient a1c is 4.9 last month, she has had normal a1c of < 6 since 2017, no need for insulins at this time -Moderate protein malnutrition, Dietitian consult -Diastolic CHF by history; keep euvolemic -Dypshagia, SS consulted, input noted, passed swallow evaluation today, removed NGT 06/26/19, start mechanical soft diet -Depression, consult -DVT prophylaxis reviewed Disposition: continue inpatient care, transfer out of icu on 06/26/19, trying to get to inpatient rehab History Interval history: Patient was seen and examined. Follow-up on current diagnosis of AMS. No overnight events reported to me. Imaging, nursing note, chart, labs and old chart reviewed. Discussed with patient. Hospitalist Physical - Physical exam Narrative exam: Gen: chronically ill appearing, NAD, Awake, aphasia HEENT: NCAT, EOMI, PERRL, OP with ngt in place Neck: supple, no adenopathy, no thyromegaly, no JVD CVS/Heart: RRR, normal S1S2, pulses present bilaterally Chest/Lungs: CTA B, Symmetrical chest expansion, good air entry bilaterally GI/Abdomen: soft, NTND, good bowel sounds, no guarding or rebound /Bladder: no suprapubic tenderness, no CVA or paraspinal tenderness Extermity/Skin: no c/c/e, no obvious rash MSK: FROM x 3 Neuro: CN 2-12 grossly intact, dysarthria Psych: calm - Constitutional Vitals: Temp Pulse Resp BP Pulse Ox 98.5 F 65 18 151/73 99 06/27/19 10:50 06/27/19 10:50 06/27/19 10:50 06/27/19 10:50 06/27/19 10:50 General appearance: Absent: mild distress Results - Labs CBC & Chem 7: 06/27/19 04:30 06/27/19 04:30 Labs: Laboratory Last Values WBC 3.2 K/mm3 (4.5-11.0) L 06/27/19 04:30 RBC 3.90 M/mm3 (3.65-5.03) 06/27/19 04:30 Hgb 10.2 gm/dl (10.1-14.3) 06/27/19 04:30 Hct 31.7 % (30.3-42.9) 06/27/19 04:30 MCV 81 fl (79-97) 06/27/19 04:30 MCH 26 pg (28-32) L 06/27/19 04:30 MCHC 32 % (30-34) 06/27/19 04:30 RDW 19.6 % (13.2-15.2) H 06/27/19 04:30 Plt Count 214 K/mm3 (140-440) 06/27/19 04:30 Sodium 138 mmol/L (137-145) 06/27/19 04:30 Potassium 3.9 mmol/L (3.6-5.0) 06/27/19 04:30 Chloride 101.7 mmol/L (98-107) 06/27/19 04:30 Carbon Dioxide 23 mmol/L (22-30) 06/27/19 04:30 17 mmol/L 06/27/19 04:30 BUN 50 mg/dL (7-17) H 06/27/19 04:30 3.1 mg/dL (0.7-1.2) H 06/27/19 04:30 Estimated GFR 19 ml/min 06/27/19 04:30 16 % 06/27/19 04:30 Glucose 127 mg/dL (65-100) H 06/27/19 04:30 Lactic Acid 0.50 mmol/L (0.7-2.0) L 06/22/19 19:38 Calcium 8.9 mg/dL (8.4-10.2) 06/27/19 04:30 0.20 mg/dL (0.00-1.30) 06/22/19 19:38 Active Medications - Current Medications Current Medications: Generic Name Dose Route Start Last Admin Trade Name Freq PRN Reason Stop Dose Admin Acetaminophen 650 mg 06/21/19 20:13 Tylenol PO Q4H PRN Pain MILD(1-3)/Fever >100.5/GALLARDO Albuterol 2.5 mg 06/21/19 20:11 Proventil IH Q3HRT PRN Shortness Of Breath Amlodipine Besylate 10 mg 06/24/19 12:00 06/27/19 09:35 Norvasc PO 10 mg QDAY CASPER Administration Lipase/Protease/Amylase 1 each 06/23/19 14:31 Pancreaze 10,500 Unit FEEDTUBE PRN PRN For Clogged Feeding Tube Aspirin 325 mg 06/23/19 10:00 06/27/19 09:35 Aspirin PO 325 mg QDAY CASPER Administration Atorvastatin Calcium 40 mg 06/21/19 22:00 06/26/19 22:10 Lipitor PO 40 mg QHS CASPER Administration Bisacodyl 10 mg 06/21/19 20:13 Dulcolax [place] QDAY PRN Constipation unrelieved by MOM Clonidine HCl 0.3 mg 06/24/19 19:50 06/27/19 05:40 Catapres PO 0.3 mg Q8HR CASPER Administration Dextrose 50 ml 06/21/19 20:13 D50w (25gm) Syringe IV PRN PRN Hypoglycemia Ferrous Sulfate 308 mg 06/24/19 10:00 06/27/19 12:21 Ferrous Sulfate FEEDTUBE 308 mg DAILY CASPER Administration Folic Acid 1 mg 06/22/19 10:00 06/27/19 09:35 Folvite PO 1 mg QDAY CASPER Administration Heparin Sodium (Porcine) 5,000 unit 06/22/19 22:00 06/27/19 09:35 Heparin SUB-Q 5,000 unit Q12HR CASPER Administration Hydralazine HCl 10 mg 06/21/19 20:13 06/25/19 03:56 Apresoline IV 10 mg Q3H PRN Administration Hypertension Hydralazine HCl 100 mg 06/22/19 14:00 06/27/19 08:10 Apresoline PO 100 mg TID CASPER Administration Labetalol HCl 200 mg 06/24/19 12:00 06/27/19 09:35 Normodyne PO 200 mg BID CASPER Administration Lansoprazole 30 mg 06/23/19 10:00 06/27/19 09:35 Prevacid Solutab FEEDTUBE 30 mg QDAY CASPER Administration Ondansetron HCl 4 mg 06/21/19 20:13 06/21/19 21:39 Zofran Odt PO 4 mg Q6H PRN Administration Nausea And Vomiting Senna 8.6 mg 06/21/19 20:13 Senokot PO Q12H PRN Laxative Effect Simple Syrup 15 ml 06/23/19 14:31 Simple Syrup FEEDTUBE PRN PRN Hypoglycemia Simple Syrup 30 ml 06/23/19 14:31 Simple Syrup FEEDTUBE PRN PRN Hypoglycemia Sodium Bicarbonate 325 mg 06/23/19 14:31 Sodium Bicarbonate FEEDTUBE PRN PRN For Clogged Feeding Tube Sodium Chloride 10 ml 06/21/19 22:00 06/27/19 09:39 Sodium Chloride Flush Syringe 10 Ml IV 10 ml BID CASPER Administration Sodium Chloride 10 ml 06/21/19 20:11 Sodium Chloride Flush Syringe 10 Ml IV PRN PRN LINE FLUSH Nutrition/Malnutrition Assess - Dietary Evaluation Nutrition/Malnutrition Findings: Nutrition Notes Start: 06/23/19 14:10 Freq: Status: Active Protocol: Document 06/25/19 13:38 RM (Rec: 06/25/19 13:43 RM [id number]) Nutrition Notes Initial or Follow up Reassessment Current Diagnosis Acute Kidney Injury,CKD(stage I-IV),Diabetes,Heart Failure, Stroke Other Pertinent Diagnosis Encephalopathy, Dysphagia, Depression Current Diet Nepro at 40 ml/hr Labs/Tests K 4.3 BUN 45 Cr 3.6 Pertinent Medications Zofran Height 5 ft 4 in Weight 77.7 kg [place] Body Weight (kg) 54.54 BMI 29.4 Subjective/Other Information Observed Nepro infusing at goal rate. Per nurse pt is tolerating TF. Percent of energy/protein needs met: 100%/84% Burn Absent Trauma Absent #1 Nutrition Diagnosis Inadequate oral intake Diagnosis Progress(for reassessment Continues documentation) Is patient on ventilator? No Is Patient Ambulatory and/or Out of Bed No REE-([facility]-confined to bed) [phone] Calculation Used for Recommendations [facility][1] Additional Notes Protein Needs: 93-155g (1.2-2g /kg) Fluid Needs: 1 ml/kcal Nutrition Intervention Nutrition Support: Nepro at 40 ml/hr Water flush of 150 mls q 4 hrs Kcal 1,728 Protein (gm) 78 Fluid (mL) 698 Goal #1 TF tolerance Goal #2 Continue to meet at least 80% of calorie and protein needs via TF Anticipated Discharge Needs: Unable to determine at this time Follow-Up By: 07/01/19 Additional Comments Follow for TF tolerance
[2019-06-28] MEDS: CATAPRES PO SCH ×3 (06:03→21:50)
[2019-06-28] MEDS: APRESOLINE PO SCH ×3 (08:32→21:30)
[2019-06-28] MEDS: FOLVITE PO SCH (09:21)
[2019-06-28] MEDS: PREVACID SOLUTAB FEEDTUBE SCH (09:21)
[2019-06-28] MEDS: ASPIRIN PO SCH (09:22)
[2019-06-28] MEDS: SODIUM CHLORIDE FLUSH SYRINGE 10 ML IV SCH ×2 (09:22→21:52)
[2019-06-28] MEDS: NORMODYNE PO SCH ×2 (09:24→21:51)
[2019-06-28] MEDS: HEPARIN SUB-Q SCH ×2 (09:25→21:53)
[2019-06-28] MEDS: NORVASC PO SCH (09:25)
--- NOTE | 2019-06-28 10:59 | Progress Note ---
Assessment and Plan - Patient Problems (1) Acute kidney injury superimposed on chronic kidney disease Current Visit: No Status: Acute Plan to address problem: renal function improving with improved BP control. avoid nephrotoxins, NSAIDs, IV contrast. Will monitor lytes/renal parameters and make further recommendations. (2) Hypertensive emergency Current Visit: No Status: Acute Plan to address problem: BP improved on current BP regimen. pt weaned off cardene gtt. JUANITA-I/ARB on hold due to CHENCHO on CKD. lasix held due to worsening eGFR and euvolemic status. (3) Systolic CHF, acute on chronic Current Visit: No Status: Chronic Plan to address problem: pt appears euvolemic, held lasix due to worsening eGFR (4) Type 2 diabetes mellitus with diabetic chronic kidney disease Current Visit: No Status: Chronic Plan to address problem: Blood sugar management by primary attending. Subjective Principal diagnosis: Hypertensive emergency; Acute encephalopathy; DM II; CHENCHO; CMOP; H/O CVA Interval history: Pt awake alert. in no acute respiratory distress. started on po diet, denies coughing, SOB, CP Objective - Vital Signs Vital signs: Vital Signs - 12hr 06/27/19 06/28/19 06/28/19 23:54 04:25 08:33 Temperature 97.5 F L 98.5 F Pulse Rate 69 70 74 Respiratory 18 18 18 Rate Blood Pressure 177/84 172/77 Blood Pressure 170/87 [Left] O2 Sat by Pulse 99 99 100 Oximetry 06/28/19 06/28/19 09:24 09:25 Temperature Pulse Rate 75 75 Respiratory Rate Blood Pressure 153/71 153/71 Blood Pressure [Left] O2 Sat by Pulse Oximetry - General Appearance General appearance: well-developed, well-nourished, appears stated age EENT: ATNC, PERRL, mucous membranes moist Neck: no JVD Respiratory: Present: Clear to Ascultation Cardiology: regular, S1S2 Gastrointestinal: normoactive bowel sounds Integumentary: no rash, other (no edema ) Neurologic: no focal deficit, alert and oriented x3, strength 5/5, facial droop Psychiatric: mood/affect appropriate, cooperative - Lab 06/27/19 04:30 06/27/19 04:30 Most recent lab results Calcium 8.9 mg/dL (8.4-10.2) 06/27/19 04:30 Medications & Allergies - Medications Allergies/Adverse Reactions: Allergies amlodipine besylate [From Norvasc] Allergy (Verified 01/21/14 20:31) Vomiting hydromorphone HCl [From Dilaudid] Allergy (Verified 01/21/14 20:31) Vomiting lisinopril Allergy (Verified 01/21/14 20:31) Unknown Home Medications: Home Medications Medication Instructions Recorded Confirmed Last Taken Type Acetaminophen [Acetaminophen TAB] 650 mg PO Q4H PRN 30 Days tablet 06/21/19 06/27/19 Unknown Rx Aspirin EC 325 mg PO QDAY 30 Days tablet 06/21/19 06/27/19 Unknown Rx AtorvaSTATin [Lipitor] 40 mg PO QHS 30 Days tablet 06/21/19 06/27/19 Unknown Rx Ferrous Sulfate [Feosol 325 MG tab] 325 mg PO QDAY tablet 06/21/19 06/27/19 Unknown Rx Folic Acid [Folvite] 1 mg PO QDAY tablet 06/21/19 06/27/19 Unknown Rx Ondansetron [Zofran ODT TAB] 4 mg PO Q6H PRN 30 Days tab.rapdis 06/21/19 06/27/19 Unknown Rx Clonidine HCl [Catapres] 0.3 mg PO BID 06/27/19 06/27/19 Unknown History Insulin Glargine [Lantus] 5 units SQ QHS 06/27/19 06/27/19 Unknown History Labetalol HCl [Labetalol 300mg TAB] 300 mg PO BID 06/27/19 06/27/19 Unknown History hydrALAZINE [Apresoline TAB] 100 mg PO TID 06/27/19 06/27/19 Unknown History Active Medications: Generic Name Dose Route Start Last Admin Trade Name Freq PRN Reason Stop Dose Admin Acetaminophen 650 mg 06/21/19 20:13 Tylenol PO Q4H PRN Pain MILD(1-3)/Fever >100.5/GALLARDO Albuterol 2.5 mg 06/21/19 20:11 Proventil IH Q3HRT PRN Shortness Of Breath Amlodipine Besylate 10 mg 06/24/19 12:00 06/28/19 09:25 Norvasc PO 10 mg QDAY CASPER Administration Lipase/Protease/Amylase 1 each 06/23/19 14:31 Pancrekeren Lugo 10,500 Unit FEEDTUBE PRN PRN For Clogged Feeding Tube Aspirin 325 mg 06/23/19 10:00 06/28/19 09:22 Aspirin PO 325 mg QDAY CASPER Administration Atorvastatin Calcium 40 mg 06/21/19 22:00 06/27/19 21:39 Lipitor PO 40 mg QHS CASPER Administration Bisacodyl 10 mg 06/21/19 20:13 Dulcolax [place] QDAY PRN Constipation unrelieved by MOM Clonidine HCl 0.3 mg 06/24/19 19:50 06/28/19 06:03 Catapres PO 0.3 mg Q8HR CASPER Administration Dextrose 50 ml 06/21/19 20:13 D50w (25gm) Syringe IV PRN PRN Hypoglycemia Ferrous Sulfate 308 mg 06/24/19 10:00 06/27/19 12:21 Ferrous Sulfate FEEDTUBE 308 mg DAILY CASPER Administration Folic Acid 1 mg 06/22/19 10:00 06/28/19 09:21 Folvite PO 1 mg QDAY CASPER Administration Heparin Sodium (Porcine) 5,000 unit 06/22/19 22:00 06/28/19 09:25 Heparin SUB-Q 5,000 unit Q12HR CASPER Administration Hydralazine HCl 10 mg 06/21/19 20:13 06/25/19 03:56 Apresoline IV 10 mg Q3H PRN Administration Hypertension Hydralazine HCl 100 mg 06/22/19 14:00 06/28/19 08:32 Apresoline PO 100 mg TID CASPER Administration Labetalol HCl 200 mg 06/24/19 12:00 06/28/19 09:24 Normodyne PO 200 mg BID CASPER Administration Lansoprazole 30 mg 06/23/19 10:00 06/28/19 09:21 Prevacid Solutab FEEDTUBE 30 mg QDAY CASPER Administration Ondansetron HCl 4 mg 06/21/19 20:13 06/21/19 21:39 Zofran Odt PO 4 mg Q6H PRN Administration Nausea And Vomiting Senna 8.6 mg 06/21/19 20:13 Senokot PO Q12H PRN Laxative Effect Simple Syrup 15 ml 06/23/19 14:31 Simple Syrup FEEDTUBE PRN PRN Hypoglycemia Simple Syrup 30 ml 06/23/19 14:31 Simple Syrup FEEDTUBE PRN PRN Hypoglycemia Sodium Bicarbonate 325 mg 06/23/19 14:31 Sodium Bicarbonate FEEDTUBE PRN PRN For Clogged Feeding Tube Sodium Chloride 10 ml 06/21/19 22:00 06/28/19 09:22 Sodium Chloride Flush Syringe 10 Ml IV 10 ml BID CASPER Administration Sodium Chloride 10 ml 06/21/19 20:11 Sodium Chloride Flush Syringe 10 Ml IV PRN PRN LINE FLUSH
[2019-06-28] MEDS: FERROUS SULFATE FEEDTUBE SCH (11:00)
--- NOTE | 2019-06-28 12:05 | Progress Note ---
Assessment and Plan Hypertensive emergency (resolved) Acute encephalopathy (Toxic/Met) History of diabetes. Acute possibly on chronic kidney injury. Anemia that is normocytic. Cardiomyopathy (HFpEF) H/O cerebrovascular accident Oropharyngeal Dysphagia H/O Depression - continue scheduled labetalol orally (but increase to 300 mg bid) - continue clonidine at 0.3 mg q8h - continue prn hydralazine I.V. - MRI showed subacute CVA - continue secondary stroke prophylaxis - continue aspirin - continue lipitor - neurology evaluation ongoing - continue fall precautions - PT/OT as tolerated - continue aspiration precautions - continue accucheck's with glycemic control. target blood glucose 140-180 mg/dL - continue to avoid nephrotoxins, adjust medications for CrCL and GFR - continue VTE prophylaxis with heparin; monitor for bleeding - continue Stress ulcer prophylaxis with Prevacid - PT/OT/ROM exercises as tolerated - continue mobility protocols for pressure ulcer prophylaxis - continue other care per attending / other consultants ..... re-evaluate in am & prn Subjective Date of service: 06/28/19 Principal diagnosis: Hypertensive emergency; Acute encephalopathy; DM II; CHENCHO; CMOP; H/O CVA Interval history: Patient is seen today for: Hypertensive emergency on Cardene drip; Acute encephalopathy; History of diabetes; Acute possibly on chronic kidney injury; Anemia that is normocytic; Cardiomyopathy; H/O cerebrovascular accident. Seen and examined at bedside; 24hour events reviewed; nursing and respiratory care staff consulted; no adverse overnight events reported to me; resting peacefully in bed; BP's still running high; Objective Vital Signs - 12hr 06/28/19 06/28/19 06/28/19 04:25 08:33 09:24 Temperature 98.5 F Pulse Rate 70 74 75 Respiratory 18 18 Rate Blood Pressure 172/77 153/71 Blood Pressure 170/87 [Left] O2 Sat by Pulse 99 100 Oximetry 06/28/19 09:25 Temperature Pulse Rate 75 Respiratory Rate Blood Pressure 153/71 Blood Pressure [Left] O2 Sat by Pulse Oximetry Constitutional: no acute distress, other (middle aged AAF, normocephalic and atraumatic with mildly increased respiratory effort at rest) Eyes: non-icteric ENT: oropharynx moist, other (mallampati 3) Neck: supple, no lymphadenopathy, no JVD Effort: normal Ascultation: Bilateral: clear, diminished breath sounds Percussion: Bilateral: not dull Cardiovascular: regular rate and rhythm Gastrointestinal: normoactive bowel sounds, soft, non-tender, non-distended Integumentary: normal Extremities: no cyanosis, no edema, pulses normal, no ischemia or petechiae Neurologic: normal mental status, pupils equal and round, CN II-XII normal, o ther (left hemiparesis) Psychiatric: mood appropriate, affect normal CBC and BMP: 06/27/19 04:30 06/27/19 04:30 Abnormal lab findings: Abnormal Labs 06/22/19 06/23/19 06/24/19 19:38 05:36 04:05 WBC Hgb 9.6 L Hct 30.1 L MCH 26 L RDW 20.7 H Sodium Chloride 107.7 H Carbon Dioxide 20 L BUN 34 H Creatinine 3.7 H Glucose Lactic Acid 0.50 L 06/24/19 06/25/19 06/25/19 04:05 03:59 03:59 WBC 3.6 L Hgb Hct MCH 27 L RDW 20.1 H Sodium 147 H Chloride 109.2 H Carbon Dioxide BUN 41 H 45 H Creatinine 4.0 H 3.6 H Glucose 105 H 124 H Lactic Acid 06/27/19 06/27/19 04:30 04:30 WBC 3.2 L Hgb Hct MCH 26 L RDW 19.6 H Sodium Chloride Carbon Dioxide BUN 50 H Creatinine 3.1 H Glucose 127 H Lactic Acid Allied health notes reviewed: nursing
--- NOTE | 2019-06-28 14:18 | Progress Note ---
Assessment and Plan Assessment and plan: Patient is 49-year-old woman with a history of anemia, diabetes, heart failure, stroke, hypertension, COPD, CVA with left side deficit for which she was in [facility] rehabilitation unit from [facility], who was about to be discharge from discharge to the acute Inpatient unit for confusion and elevated blood pressure with systolic BP over 200, inability to talk which began on the weekend per Dr. Singh. * MRI brain without contrast IMPRESSION: Small areas of subacute ischemia are identified in the head of the right caudate nucleus, left parietal white matter and left splenium of the corpus callosum as described. Volume loss. Advanced chronic white matter changes. Chronic focal infarcts in the right zavala radiata and inferior left cerebellum. -New Acute Left ischemic stroke while in Rehab unit: treat with ASA and statin -Hypertensive emergency; off Cardene drip on 06/25/19, passed swallow evaluation -Acute metabolic Hypertensive encephalopathy: Improving as blood pressure comes down -CKD stage 4, unchanged, avoid nephrotoxins, nephrology consult -hx of DM appears to be in remission, as patient a1c is 4.9 last month, she has had normal a1c of < 6 since 2017, no need for insulins at this time -Moderate protein malnutrition, Dietitian consult -Diastolic CHF by history; keep euvolemic -Dypshagia, SS consulted, input noted, passed swallow evaluation today, removed NGT 06/26/19, start mechanical soft diet -Depression, consult -DVT prophylaxis reviewed Disposition: continue inpatient care, transfer out of icu on 06/26/19, trying to get to inpatient rehab History Interval history: Patient was seen and examined. Follow-up on current diagnosis of AMS. No overnight events reported to me. Imaging, nursing note, chart, labs and old chart reviewed. Discussed with patient. Hospitalist Physical - Physical exam Narrative exam: Gen: chronically ill appearing, NAD, Awake, aphasia HEENT: NCAT, EOMI, PERRL, OP with ngt in place Neck: supple, no adenopathy, no thyromegaly, no JVD CVS/Heart: RRR, normal S1S2, pulses present bilaterally Chest/Lungs: CTA B, Symmetrical chest expansion, good air entry bilaterally GI/Abdomen: soft, NTND, good bowel sounds, no guarding or rebound /Bladder: no suprapubic tenderness, no CVA or paraspinal tenderness Extermity/Skin: no c/c/e, no obvious rash MSK: FROM x 3 Neuro: CN 2-12 grossly intact, dysarthria Psych: calm - Constitutional Vitals: Temp Pulse Resp BP Pulse Ox 98.5 F 67 18 142/71 100 06/28/19 04:25 06/28/19 13:57 06/28/19 08:33 06/28/19 13:57 06/28/19 12:17 General appearance: Absent: mild distress Results - Labs CBC & Chem 7: 06/27/19 04:30 06/27/19 04:30 Labs: Laboratory Last Values WBC 3.2 K/mm3 (4.5-11.0) L 06/27/19 04:30 RBC 3.90 M/mm3 (3.65-5.03) 06/27/19 04:30 Hgb 10.2 gm/dl (10.1-14.3) 06/27/19 04:30 Hct 31.7 % (30.3-42.9) 06/27/19 04:30 MCV 81 fl (79-97) 06/27/19 04:30 MCH 26 pg (28-32) L 06/27/19 04:30 MCHC 32 % (30-34) 06/27/19 04:30 RDW 19.6 % (13.2-15.2) H 06/27/19 04:30 Plt Count 214 K/mm3 (140-440) 06/27/19 04:30 Sodium 138 mmol/L (137-145) 06/27/19 04:30 Potassium 3.9 mmol/L (3.6-5.0) 06/27/19 04:30 Chloride 101.7 mmol/L (98-107) 06/27/19 04:30 Carbon Dioxide 23 mmol/L (22-30) 06/27/19 04:30 17 mmol/L 06/27/19 04:30 BUN 50 mg/dL (7-17) H 06/27/19 04:30 3.1 mg/dL (0.7-1.2) H 06/27/19 04:30 Estimated GFR 19 ml/min 06/27/19 04:30 16 % 06/27/19 04:30 Glucose 127 mg/dL (65-100) H 06/27/19 04:30 Lactic Acid 0.50 mmol/L (0.7-2.0) L 06/22/19 19:38 Calcium 8.9 mg/dL (8.4-10.2) 06/27/19 04:30 0.20 mg/dL (0.00-1.30) 06/22/19 19:38 Active Medications - Current Medications Current Medications: Generic Name Dose Route Start Last Admin Trade Name Freq PRN Reason Stop Dose Admin Acetaminophen 650 mg 06/21/19 20:13 Tylenol PO Q4H PRN Pain MILD(1-3)/Fever >100.5/GALLARDO Albuterol 2.5 mg 06/21/19 20:11 Proventil IH Q3HRT PRN Shortness Of Breath Amlodipine Besylate 10 mg 06/24/19 12:00 06/28/19 09:25 Norvasc PO 10 mg QDAY CASPER Administration Lipase/Protease/Amylase 1 each 06/23/19 14:31 Pancreaze 10,500 Unit FEEDTUBE PRN PRN For Clogged Feeding Tube Aspirin 325 mg 06/23/19 10:00 06/28/19 09:22 Aspirin PO 325 mg QDAY CASPER Administration Atorvastatin Calcium 40 mg 06/21/19 22:00 06/27/19 21:39 Lipitor PO 40 mg QHS CASPER Administration Bisacodyl 10 mg 06/21/19 20:13 Dulcolax SD QDAY PRN Constipation unrelieved by MOM Clonidine HCl 0.3 mg 06/24/19 19:50 06/28/19 13:57 Catapres PO 0.3 mg Q8HR CASPER Administration Dextrose 50 ml 06/21/19 20:13 D50w (25gm) Syringe IV PRN PRN Hypoglycemia Ferrous Sulfate 308 mg 06/24/19 10:00 06/28/19 11:00 Ferrous Sulfate FEEDTUBE 308 mg DAILY CASPER Administration Folic Acid 1 mg 06/22/19 10:00 06/28/19 09:21 Folvite PO 1 mg QDAY CASPER Administration Heparin Sodium (Porcine) 5,000 unit 06/22/19 22:00 06/28/19 09:25 Heparin SUB-Q 5,000 unit Q12HR CASPER Administration Hydralazine HCl 10 mg 06/21/19 20:13 06/25/19 03:56 Apresoline IV 10 mg Q3H PRN Administration Hypertension Hydralazine HCl 100 mg 06/22/19 14:00 06/28/19 13:57 Apresoline PO 100 mg TID CASPER Administration Labetalol HCl 300 mg 06/28/19 12:05 Normodyne PO BID CASPER Lansoprazole 30 mg 06/23/19 10:00 06/28/19 09:21 Prevacid Solutab FEEDTUBE 30 mg QDAY CASPER Administration Ondansetron HCl 4 mg 06/21/19 20:13 06/21/19 21:39 Zofran Odt PO 4 mg Q6H PRN Administration Nausea And Vomiting Senna 8.6 mg 06/21/19 20:13 Senokot PO Q12H PRN Laxative Effect Simple Syrup 15 ml 06/23/19 14:31 Simple Syrup FEEDTUBE PRN PRN Hypoglycemia Simple Syrup 30 ml 06/23/19 14:31 Simple Syrup FEEDTUBE PRN PRN Hypoglycemia Sodium Bicarbonate 325 mg 06/23/19 14:31 Sodium Bicarbonate FEEDTUBE PRN PRN For Clogged Feeding Tube Sodium Chloride 10 ml 06/21/19 22:00 06/28/19 09:22 Sodium Chloride Flush Syringe 10 Ml IV 10 ml BID CASPER Administration Sodium Chloride 10 ml 06/21/19 20:11 Sodium Chloride Flush Syringe 10 Ml IV PRN PRN LINE FLUSH Nutrition/Malnutrition Assess - Dietary Evaluation Nutrition/Malnutrition Findings: Nutrition Notes Start: 06/23/19 14:10 Freq: Status: Active Protocol: Document 06/25/19 13:38 RM (Rec: 06/25/19 13:43 RM [id number]) Nutrition Notes Initial or Follow up Reassessment Current Diagnosis Acute Kidney Injury,CKD(stage I-IV),Diabetes,Heart Failure, Stroke Other Pertinent Diagnosis Encephalopathy, Dysphagia, Depression Current Diet Nepro at 40 ml/hr Labs/Tests K 4.3 BUN 45 Cr 3.6 Pertinent Medications Zofran Height 5 ft 4 in Weight 77.7 kg Tyronza Body Weight (kg) 54.54 BMI 29.4 Subjective/Other Information Observed Nepro infusing at goal rate. Per nurse pt is tolerating TF. Percent of energy/protein needs met: 100%/84% Burn Absent Trauma Absent #1 Nutrition Diagnosis Inadequate oral intake Diagnosis Progress(for reassessment Continues documentation) Is patient on ventilator? No Is Patient Ambulatory and/or Out of Bed No REE-([facility]-confined to bed) [phone] Calculation Used for Recommendations [facility] Additional Notes Protein Needs: 93-155g (1.2-2g /kg) Fluid Needs: 1 ml/kcal Nutrition Intervention Nutrition Support: Nepro at 40 ml/hr Water flush of 150 mls q 4 hrs Kcal 1,728 Protein (gm) 78 Fluid (mL) 698 Goal #1 TF tolerance Goal #2 Continue to meet at least 80% of calorie and protein needs via TF Anticipated Discharge Needs: Unable to determine at this time Follow-Up By: 07/01/19 Additional Comments Follow for TF tolerance
[2019-06-29] MEDS: CATAPRES PO SCH ×3 (06:06→21:54)
[2019-06-29] MEDS: APRESOLINE PO SCH ×3 (08:30→20:40)
[2019-06-29] MEDS: ASPIRIN PO SCH (09:40)
[2019-06-29] MEDS: PREVACID SOLUTAB FEEDTUBE SCH (09:40)
[2019-06-29] MEDS: NORVASC PO SCH (09:40)
[2019-06-29] MEDS: FOLVITE PO SCH (09:40)
[2019-06-29] MEDS: NORMODYNE PO SCH ×2 (09:41→21:53)
[2019-06-29] MEDS: FERROUS SULFATE FEEDTUBE SCH (09:43)
[2019-06-29] MEDS: HEPARIN SUB-Q SCH ×2 (09:44→21:54)
[2019-06-29] MEDS: SODIUM CHLORIDE FLUSH SYRINGE 10 ML IV SCH ×2 (09:44→21:55)
--- NOTE | 2019-06-29 11:25 | Progress Note ---
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 Kidney function has improved back to patient's baseline (2) Hypertensive chronic kidney disease with stage 1 through stage 4 chronic kidney disease, or unspecified chronic kidney disease Current Visit: Yes Status: Acute Plan to address problem: Blood pressure control has improved. Continue current medications and Follow-up blood pressure. Okay to transfer to rehabilitation from my standpoint. Discussed with primary attending (3) Heart failure with preserved ejection fraction Current Visit: Yes Status: Acute Plan to address problem: Stable. (4) Encephalopathy Current Visit: Yes Status: Acute Plan to address problem: Mental status improving. Continue current treatment Subjective Date of service: 06/29/19 Principal diagnosis: Hypertensive emergency; Acute encephalopathy; DM II; CHENCHO; CMOP; H/O CVA Interval history: Patient seen lying in bed. She feels much better. Denies pain, nausea or vomiting. No shortness of breath or dizziness. Objective - Exam Narrative Exam: in no acute distress HEENT: NCAT, pink oral mucous membrane Neck: Supple, no venous distention CVS: S1S2 RRR with no murmur, rub or gallop Chest: Clear to auscultation Abdomen: Protuberant, soft, nontender, no organomegaly, bowel sounds are present Extremities: No edema Neuro: Awake, alert no focal deficits - Vital Signs Vital signs: Vital Signs - 12hr 06/29/19 06/29/19 06/29/19 03:45 06:06 08:58 Temperature 98.4 F 98.5 F Pulse Rate 80 80 Respiratory 18 18 Rate Blood Pressure 110/52 110/52 143/66 O2 Sat by Pulse 100 Oximetry 06/29/19 06/29/19 09:40 09:41 Temperature Pulse Rate 87 84 Respiratory Rate Blood Pressure 143/77 143/77 O2 Sat by Pulse Oximetry - Lab 06/27/19 04:30 06/27/19 04:30 Most recent lab results Calcium 8.9 mg/dL (8.4-10.2) 06/27/19 04:30 Medications & Allergies - Medications Allergies/Adverse Reactions: Allergies amlodipine besylate [From Norvasc] Allergy (Verified 01/21/14 20:31) Vomiting hydromorphone HCl [From Dilaudid] Allergy (Verified 01/21/14 20:31) Vomiting lisinopril Allergy (Verified 01/21/14 20:31) Unknown Home Medications: Home Medications Medication Instructions Recorded Confirmed Last Taken Type Acetaminophen [Acetaminophen TAB] 650 mg PO Q4H PRN 30 Days tablet 06/21/19 06/27/19 Unknown Rx Aspirin EC 325 mg PO QDAY 30 Days tablet 06/21/19 06/27/19 Unknown Rx AtorvaSTATin [Lipitor] 40 mg PO QHS 30 Days tablet 06/21/19 06/27/19 Unknown Rx Ferrous Sulfate [Feosol 325 MG tab] 325 mg PO QDAY tablet 06/21/19 06/27/19 Unknown Rx Folic Acid [Folvite] 1 mg PO QDAY tablet 06/21/19 06/27/19 Unknown Rx Ondansetron [Zofran ODT TAB] 4 mg PO Q6H PRN 30 Days tab.rapdis 06/21/19 06/27/19 Unknown Rx Clonidine HCl [Catapres] 0.3 mg PO BID 06/27/19 06/27/19 Unknown History Insulin Glargine [Lantus] 5 units SQ QHS 06/27/19 06/27/19 Unknown History Labetalol HCl [Labetalol 300mg TAB] 300 mg PO BID 06/27/19 06/27/19 Unknown History hydrALAZINE [Apresoline TAB] 100 mg PO TID 06/27/19 06/27/19 Unknown History Active Medications: Generic Name Dose Route Start Last Admin Trade Name Freq PRN Reason Stop Dose Admin Acetaminophen 650 mg 06/21/19 20:13 Tylenol PO Q4H PRN Pain MILD(1-3)/Fever >100.5/GALLARDO Albuterol 2.5 mg 06/21/19 20:11 Proventil IH Q3HRT PRN Shortness Of Breath Amlodipine Besylate 10 mg 06/24/19 12:00 06/29/19 09:40 Norvasc PO 10 mg QDAY CASPER Administration Lipase/Protease/Amylase 1 each 06/23/19 14:31 Vernell Lugo 10,500 Unit FEEDTUBE PRN PRN For Clogged Feeding Tube Aspirin 325 mg 06/23/19 10:00 06/29/19 09:40 Aspirin PO 325 mg QDAY CASPER Administration Atorvastatin Calcium 40 mg 06/21/19 22:00 06/28/19 21:52 Lipitor PO 40 mg QHS CASPER Administration Bisacodyl 10 mg 06/21/19 20:13 Dulcolax RI QDAY PRN Constipation unrelieved by MOM Clonidine HCl 0.3 mg 06/24/19 19:50 06/29/19 06:06 Catapres PO Not Given Q8HR CASPER Dextrose 50 ml 06/21/19 20:13 D50w (25gm) Syringe IV PRN PRN Hypoglycemia Ferrous Sulfate 308 mg 06/24/19 10:00 06/29/19 09:43 Ferrous Sulfate FEEDTUBE 308 mg DAILY CASPER Administration Folic Acid 1 mg 06/22/19 10:00 06/29/19 09:40 Folvite PO 1 mg QDAY CASPER Administration Heparin Sodium (Porcine) 5,000 unit 06/22/19 22:00 06/29/19 09:44 Heparin SUB-Q 5,000 unit Q12HR CASPER Administration Hydralazine HCl 10 mg 06/21/19 20:13 06/25/19 03:56 Apresoline IV 10 mg Q3H PRN Administration Hypertension Hydralazine HCl 100 mg 06/22/19 14:00 06/29/19 08:30 Apresoline PO 100 mg TID CASPER Administration Labetalol HCl 300 mg 06/28/19 12:05 06/29/19 09:41 Normodyne PO 300 mg BID CASPER Administration Lansoprazole 30 mg 06/23/19 10:00 06/29/19 09:40 Prevacid Solutab FEEDTUBE 30 mg QDAY CASPER Administration Ondansetron HCl 4 mg 06/21/19 20:13 06/21/19 21:39 Zofran Odt PO 4 mg Q6H PRN Administration Nausea And Vomiting Senna 8.6 mg 06/21/19 20:13 Senokot PO Q12H PRN Laxative Effect Simple Syrup 15 ml 06/23/19 14:31 Simple Syrup FEEDTUBE PRN PRN Hypoglycemia Simple Syrup 30 ml 06/23/19 14:31 Simple Syrup FEEDTUBE PRN PRN Hypoglycemia Sodium Bicarbonate 325 mg 06/23/19 14:31 Sodium Bicarbonate FEEDTUBE PRN PRN For Clogged Feeding Tube Sodium Chloride 10 ml 06/21/19 22:00 06/29/19 09:44 Sodium Chloride Flush Syringe 10 Ml IV 10 ml BID CASPER Administration Sodium Chloride 10 ml 06/21/19 20:11 Sodium Chloride Flush Syringe 10 Ml IV PRN PRN LINE FLUSH
--- NOTE | 2019-06-29 12:31 | Progress Note ---
Assessment and Plan Hypertensive emergency, Acute encephalopathy. History of diabetes. Acute possibly on chronic kidney injury. Anemia that is normocytic. Cardiomyopathy (HFpEF) H/O cerebrovascular accident Oropharyngeal Dysphagia H/O Depression - continue secondary stroke prophylaxis - aspiration precautions with modified diet - continue accucheck's with glycemic control. target blood glucose 140-180 mg/dL - continue to avoid nephrotoxins, adjust medications for CrCL and GFR - continue VTE prophylaxis with heparin; monitor for bleeding - PT/OT/speech therapy -Continue to avoid nephrotoxins, renal function at baseline -Cardio-protective measures -Blood pressure control -Discharge planning- possible IRU CONDITION: FAIR PROGNOSIS: FAIR CODE STATUS: FULL Subjective Date of service: 06/29/19 Principal diagnosis: Hypertensive emergency; Acute encephalopathy; DM II; CHENCHO; CMOP; H/O CVA Interval history: Patient is seen today for: Hypertensive emergency ; Acute encephalopathy; History of diabetes; Acute possibly on chronic kidney injury; Anemia that is normocytic; Cardiomyopathy; H/O cerebrovascular accident. Seen and examined at bedside; 24hour events reviewed; nursing and respiratory ca re staff consulted; no adverse overnight events reported to me; resting peacefully in bed; vitals, labs, medications, chart reviewed. Denies any chest pain, no shortness of breath, no fevers or chills. No diarrhea. Objective Vital Signs - 12hr 06/29/19 06/29/19 06/29/19 03:45 06:06 08:58 Temperature 98.4 F 98.5 F Pulse Rate 80 80 Pulse Rate [ Left Dorsalis Pedis] Respiratory 18 18 Rate Blood Pressure 110/52 110/52 143/66 O2 Sat by Pulse 100 Oximetry 06/29/19 06/29/19 06/29/19 09:40 09:41 10:00 Temperature Pulse Rate 87 84 Pulse Rate [ 89 Left Dorsalis Pedis] Respiratory 14 Rate Blood Pressure 143/77 143/77 O2 Sat by Pulse Oximetry Constitutional: no acute distress, other (middle aged AAF, normocephalic and atraumatic not in any distress) Eyes: non-icteric ENT: oropharynx moist, other (mallampati 3) Neck: supple, no lymphadenopathy, no JVD Effort: normal Ascultation: Bilateral: clear, diminished breath sounds Percussion: Bilateral: not dull Cardiovascular: regular rate and rhythm Gastrointestinal: normoactive bowel sounds, soft, non-tender, non-distended Integumentary: normal Extremities: no cyanosis, no edema, pulses normal, no ischemia or petechiae Neurologic: pupils equal and round, other (left hemiparesis, dysarthria) Psychiatric: affect normal CBC and BMP: 06/27/19 04:30 06/30/19 05:20 Abnormal lab findings: Abnormal Labs 06/22/19 06/23/19 06/24/19 19:38 05:36 04:05 WBC Hgb 9.6 L Hct 30.1 L MCH 26 L RDW 20.7 H Sodium Chloride 107.7 H Carbon Dioxide 20 L BUN 34 H Creatinine 3.7 H Glucose Lactic Acid 0.50 L 06/24/19 06/25/19 06/25/19 04:05 03:59 03:59 WBC 3.6 L Hgb Hct MCH 27 L RDW 20.1 H Sodium 147 H Chloride 109.2 H Carbon Dioxide BUN 41 H 45 H Creatinine 4.0 H 3.6 H Glucose 105 H 124 H Lactic Acid 06/27/19 06/27/19 04:30 04:30 WBC 3.2 L Hgb Hct MCH 26 L RDW 19.6 H Sodium Chloride Carbon Dioxide BUN 50 H Creatinine 3.1 H Glucose 127 H Lactic Acid Allied health notes reviewed: nursing
--- NOTE | 2019-06-29 15:16 | Progress Note ---
Assessment and Plan Assessment and plan: Patient is 49-year-old woman with a history of anemia, diabetes, heart failure, stroke, hypertension, COPD, CVA with left side deficit for which she was in [facility] rehabilitation unit from [facility], who was about to be discharge from discharge to the acute Inpatient unit for confusion and elevated blood pressure with systolic BP over 200, inability to talk which began on the weekend per Dr. Singh. * MRI brain without contrast IMPRESSION: Small areas of subacute ischemia are identified in the head of the right caudate nucleus, left parietal white matter and left splenium of the corpus callosum as described. Volume loss. Advanced chronic white matter changes. Chronic focal infarcts in the right zavala radiata and inferior left cerebellum. -New Acute Left ischemic stroke while in Rehab unit: treat with ASA and statin -Hypertensive emergency; off Cardene drip on 06/25/19, passed swallow evaluation -Acute metabolic Hypertensive encephalopathy: Improving as blood pressure comes down -CKD stage 4, unchanged, avoid nephrotoxins, nephrology consult -hx of DM appears to be in remission, as patient a1c is 4.9 last month, she has had normal a1c of < 6 since 2017, no need for insulins at this time -Moderate protein malnutrition, Dietitian consult -Diastolic CHF by history; keep euvolemic -Dypshagia, SS consulted, input noted, passed swallow evaluation today, removed NGT 06/26/19, start mechanical soft diet -Depression, consult -DVT prophylaxis reviewed Disposition: continue inpatient care, transfer out of icu on 06/26/19, trying to get back to inpatient rehab History Interval history: Patient was seen and examined. Follow-up on current diagnosis of AMS. No overnight events reported to me. Imaging, nursing note, chart, labs and old chart reviewed. Discussed with patient. Hospitalist Physical - Physical exam Narrative exam: Gen: chronically ill appearing, NAD, Awake, aphasia HEENT: NCAT, EOMI, PERRL, OP with ngt in place Neck: supple, no adenopathy, no thyromegaly, no JVD CVS/Heart: RRR, normal S1S2, pulses present bilaterally Chest/Lungs: CTA B, Symmetrical chest expansion, good air entry bilaterally GI/Abdomen: soft, NTND, good bowel sounds, no guarding or rebound /Bladder: no suprapubic tenderness, no CVA or paraspinal tenderness Extermity/Skin: no c/c/e, no obvious rash MSK: FROM x 3 Neuro: CN 2-12 grossly intact, dysarthria Psych: calm - Constitutional Vitals: Temp Pulse Resp BP Pulse Ox 98.5 F 70 14 149/70 100 06/29/19 08:58 06/29/19 13:55 06/29/19 10:00 06/29/19 13:55 06/29/19 03:45 General appearance: Absent: mild distress Results - Labs CBC & Chem 7: 06/27/19 04:30 06/27/19 04:30 Labs: Laboratory Last Values WBC 3.2 K/mm3 (4.5-11.0) L 06/27/19 04:30 RBC 3.90 M/mm3 (3.65-5.03) 06/27/19 04:30 Hgb 10.2 gm/dl (10.1-14.3) 06/27/19 04:30 Hct 31.7 % (30.3-42.9) 06/27/19 04:30 MCV 81 fl (79-97) 06/27/19 04:30 MCH 26 pg (28-32) L 06/27/19 04:30 MCHC 32 % (30-34) 06/27/19 04:30 RDW 19.6 % (13.2-15.2) H 06/27/19 04:30 Plt Count 214 K/mm3 (140-440) 06/27/19 04:30 Sodium 138 mmol/L (137-145) 06/27/19 04:30 Potassium 3.9 mmol/L (3.6-5.0) 06/27/19 04:30 Chloride 101.7 mmol/L (98-107) 06/27/19 04:30 Carbon Dioxide 23 mmol/L (22-30) 06/27/19 04:30 17 mmol/L 06/27/19 04:30 BUN 50 mg/dL (7-17) H 06/27/19 04:30 3.1 mg/dL (0.7-1.2) H 06/27/19 04:30 Estimated GFR 19 ml/min 06/27/19 04:30 16 % 06/27/19 04:30 Glucose 127 mg/dL (65-100) H 06/27/19 04:30 Lactic Acid 0.50 mmol/L (0.7-2.0) L 06/22/19 19:38 Calcium 8.9 mg/dL (8.4-10.2) 06/27/19 04:30 0.20 mg/dL (0.00-1.30) 06/22/19 19:38 Active Medications - Current Medications Current Medications: Generic Name Dose Route Start Last Admin Trade Name Freq PRN Reason Stop Dose Admin Acetaminophen 650 mg 06/21/19 20:13 Tylenol PO Q4H PRN Pain MILD(1-3)/Fever >100.5/GALLARDO Albuterol 2.5 mg 06/21/19 20:11 Proventil IH Q3HRT PRN Shortness Of Breath Amlodipine Besylate 10 mg 06/24/19 12:00 06/29/19 09:40 Norvasc PO 10 mg QDAY CASPER Administration Lipase/Protease/Amylase 1 each 06/23/19 14:31 Pancreazahsan Lugo 10,500 Unit FEEDTUBE PRN PRN For Clogged Feeding Tube Aspirin 325 mg 06/23/19 10:00 06/29/19 09:40 Aspirin PO 325 mg QDAY CASPER Administration Atorvastatin Calcium 40 mg 06/21/19 22:00 06/28/19 21:52 Lipitor PO 40 mg QHS CASPER Administration Bisacodyl 10 mg 06/21/19 20:13 Dulcolax MS QDAY PRN Constipation unrelieved by MOM Clonidine HCl 0.3 mg 06/24/19 19:50 06/29/19 13:55 Catapres PO 0.3 mg Q8HR CASPER Administration Dextrose 50 ml 06/21/19 20:13 D50w (25gm) Syringe IV PRN PRN Hypoglycemia Ferrous Sulfate 308 mg 06/24/19 10:00 06/29/19 09:43 Ferrous Sulfate FEEDTUBE 308 mg DAILY CASPER Administration Folic Acid 1 mg 06/22/19 10:00 06/29/19 09:40 Folvite PO 1 mg QDAY CASPER Administration Heparin Sodium (Porcine) 5,000 unit 06/22/19 22:00 06/29/19 09:44 Heparin SUB-Q 5,000 unit Q12HR CASPER Administration Hydralazine HCl 10 mg 06/21/19 20:13 06/25/19 03:56 Apresoline IV 10 mg Q3H PRN Administration Hypertension Hydralazine HCl 100 mg 06/22/19 14:00 06/29/19 13:55 Apresoline PO 100 mg TID CASPER Administration Labetalol HCl 300 mg 06/28/19 12:05 06/29/19 09:41 Normodyne PO 300 mg BID CASPER Administration Lansoprazole 30 mg 06/23/19 10:00 06/29/19 09:40 Prevacid Solutab FEEDTUBE 30 mg QDAY CASPER Administration Ondansetron HCl 4 mg 06/21/19 20:13 06/21/19 21:39 Zofran Odt PO 4 mg Q6H PRN Administration Nausea And Vomiting Senna 8.6 mg 06/21/19 20:13 Senokot PO Q12H PRN Laxative Effect Simple Syrup 15 ml 06/23/19 14:31 Simple Syrup FEEDTUBE PRN PRN Hypoglycemia Simple Syrup 30 ml 06/23/19 14:31 Simple Syrup FEEDTUBE PRN PRN Hypoglycemia Sodium Bicarbonate 325 mg 06/23/19 14:31 Sodium Bicarbonate FEEDTUBE PRN PRN For Clogged Feeding Tube Sodium Chloride 10 ml 06/21/19 22:00 06/29/19 09:44 Sodium Chloride Flush Syringe 10 Ml IV 10 ml BID CASPER Administration Sodium Chloride 10 ml 06/21/19 20:11 Sodium Chloride Flush Syringe 10 Ml IV PRN PRN LINE FLUSH Nutrition/Malnutrition Assess - Dietary Evaluation Nutrition/Malnutrition Findings: Nutrition Notes Start: 06/23/19 14:10 Freq: Status: Active Protocol: Document 06/25/19 13:38 RM (Rec: 06/25/19 13:43 RM [id number]) Nutrition Notes Initial or Follow up Reassessment Current Diagnosis Acute Kidney Injury,CKD(stage I-IV),Diabetes,Heart Failure, Stroke Other Pertinent Diagnosis Encephalopathy, Dysphagia, Depression Current Diet Nepro at 40 ml/hr Labs/Tests K 4.3 BUN 45 Cr 3.6 Pertinent Medications Zofran Height 5 ft 4 in Weight 77.7 kg [place] Body Weight (kg) 54.54 BMI 29.4 Subjective/Other Information Observed Nepro infusing at goal rate. Per nurse pt is tolerating TF. Percent of energy/protein needs met: 100%/84% Burn Absent Trauma Absent #1 Nutrition Diagnosis Inadequate oral intake Diagnosis Progress(for reassessment Continues documentation) Is patient on ventilator? No Is Patient Ambulatory and/or Out of Bed No REE-([facility]-confined to bed) [phone] Calculation Used for Recommendations [facility] Additional Notes Protein Needs: 93-155g (1.2-2g /kg) Fluid Needs: 1 ml/kcal Nutrition Intervention Nutrition Support: Nepro at 40 ml/hr Water flush of 150 mls q 4 hrs Kcal 1,728 Protein (gm) 78 Fluid (mL) 698 Goal #1 TF tolerance Goal #2 Continue to meet at least 80% of calorie and protein needs via TF Anticipated Discharge Needs: Unable to determine at this time Follow-Up By: 07/01/19 Additional Comments Follow for TF tolerance
[2019-06-30] MEDS: CATAPRES PO SCH ×3 (06:07→22:30)
[2019-06-30 06:18] LABS: Calcium 8.9 mg/dL (8.4-10.2)
[2019-06-30] MEDS: APRESOLINE PO SCH ×3 (08:40→20:41)
[2019-06-30] MEDS: PREVACID SOLUTAB FEEDTUBE SCH (10:10)
[2019-06-30] MEDS: FOLVITE PO SCH (10:10)
[2019-06-30] MEDS: ASPIRIN PO SCH (10:10)
[2019-06-30] MEDS: SODIUM CHLORIDE FLUSH SYRINGE 10 ML IV SCH ×2 (10:11→22:41)
[2019-06-30] MEDS: NORVASC PO SCH (10:11)
[2019-06-30] MEDS: FERROUS SULFATE FEEDTUBE SCH (10:11)
[2019-06-30] MEDS: HEPARIN SUB-Q SCH ×2 (10:11→22:30)
[2019-06-30] MEDS: NORMODYNE PO SCH ×2 (10:12→22:31)
--- NOTE | 2019-06-30 14:21 | Progress Note ---
Assessment and Plan Hypertensive emergency, Acute encephalopathy. History of diabetes. Acute possibly on chronic kidney injury. Anemia that is normocytic. Cardiomyopathy (HFpEF) H/O cerebrovascular accident Oropharyngeal Dysphagia H/O Depression - continue secondary stroke prophylaxis - aspiration precautions with modified diet - continue accucheck's with glycemic control. target blood glucose 140-180 mg/dL - continue to avoid nephrotoxins, adjust medications for CrCL and GFR - continue VTE prophylaxis with heparin; monitor for bleeding - PT/OT/speech therapy -Continue to avoid nephrotoxins, renal function at baseline -Cardio-protective measures -Blood pressure control -Discharge planning- possible IRU vs placement CONDITION: FAIR PROGNOSIS: FAIR CODE STATUS: FULL Subjective Date of service: 06/30/19 Principal diagnosis: Hypertensive emergency; Acute encephalopathy; DM II; CHENCHO; CMOP; H/O CVA Interval history: Patient is seen today for: Hypertensive emergency on Cardene drip; Acute encephalopathy; History of diabetes; Acute possibly on chronic kidney injury; Anemia that is normocytic; Cardiomyopathy; H/O cerebrovascular accident. Seen and examined at bedside; 24hour events reviewed; nursing and respiratory care staff consulted; no adverse overnight events reported to me; resting peacefully in bed; vitals, labs, medications, chart reviewed. Objective Vital Signs - 12hr 06/30/19 06/30/19 06/30/19 03:15 06:07 08:28 Temperature 98.9 F Pulse Rate 74 74 Pulse Rate [ 86 Left Dorsalis Pedis] Respiratory 20 17 Rate Blood Pressure 178/83 178/83 O2 Sat by Pulse 98 99 Oximetry 06/30/19 06/30/19 06/30/19 08:38 10:00 10:08 Temperature 98.6 F Pulse Rate 79 72 73 Pulse Rate [ Left Dorsalis Pedis] Respiratory 18 Rate Blood Pressure 126/73 174/83 O2 Sat by Pulse 99 100 Oximetry 06/30/19 06/30/19 06/30/19 10:11 10:12 13:00 Temperature Pulse Rate 73 73 79 Pulse Rate [ Left Dorsalis Pedis] Respiratory Rate Blood Pressure 174/83 174/83 O2 Sat by Pulse Oximetry Constitutional: no acute distress Eyes: non-icteric ENT: oropharynx moist Neck: supple, no lymphadenopathy, no JVD Effort: normal Ascultation: Bilateral: clear, diminished breath sounds Percussion: Bilateral: not dull Cardiovascular: regular rate and rhythm, other (S1,S2) Gastrointestinal: normoactive bowel sounds, soft, non-tender, non-distended Integumentary: normal Extremities: no cyanosis, no edema, pulses normal, no ischemia or petechiae Neurologic: normal mental status, pupils equal and round, other (left h emiparesis) Psychiatric: mood appropriate, affect normal CBC and BMP: 06/27/19 04:30 06/30/19 05:20 Abnormal lab findings: Abnormal Labs 06/22/19 06/23/19 06/24/19 19:38 05:36 04:05 WBC Hgb 9.6 L Hct 30.1 L MCH 26 L RDW 20.7 H Sodium Chloride 107.7 H Carbon Dioxide 20 L BUN 34 H Creatinine 3.7 H Glucose Lactic Acid 0.50 L 06/24/19 06/25/19 06/25/19 04:05 03:59 03:59 WBC 3.6 L Hgb Hct MCH 27 L RDW 20.1 H Sodium 147 H Chloride 109.2 H Carbon Dioxide BUN 41 H 45 H Creatinine 4.0 H 3.6 H Glucose 105 H 124 H Lactic Acid 06/27/19 06/27/19 06/30/19 04:30 04:30 05:20 WBC 3.2 L Hgb Hct MCH 26 L RDW 19.6 H Sodium Chloride Carbon Dioxide BUN 50 H 45 H Creatinine 3.1 H 3.3 H Glucose 127 H 166 H Lactic Acid Allied health notes reviewed: nursing
--- NOTE | 2019-06-30 15:13 | Progress Note ---
Assessment and Plan Assessment and plan: Patient is 49-year-old woman with a history of anemia, diabetes, heart failure, stroke, hypertension, COPD, CVA with left side deficit for which she was in [facility] rehabilitation unit from [facility], who was about to be discharge from discharge to the acute Inpatient unit for confusion and elevated blood pressure with systolic BP over 200, inability to talk which began on the weekend per Dr. Singh. * MRI brain without contrast IMPRESSION: Small areas of subacute ischemia are identified in the head of the right caudate nucleus, left parietal white matter and left splenium of the corpus callosum as described. Volume loss. Advanced chronic white matter changes. Chronic focal infarcts in the right zavala radiata and inferior left cerebellum. -New Acute Left ischemic stroke while in Rehab unit: treat with ASA and statin -Hypertensive emergency; off Cardene drip on 06/25/19, passed swallow evaluation, Restarted BB. -Acute metabolic Hypertensive encephalopathy: Improving as blood pressure comes down -CKD stage 4, unchanged, avoid nephrotoxins, nephrology consult -hx of DM appears to be in remission, as patient a1c is 4.9 last month, she has had normal a1c of < 6 since 2017, no need for insulins at this time -Moderate protein malnutrition, Dietitian consult -Diastolic CHF by history; keep euvolemic -Dypshagia, SS consulted, input noted, passed swallow evaluation today, removed NGT 06/26/19, start mechanical soft diet -Depression, MH consult -DVT prophylaxis reviewed Disposition: continue inpatient care, transfer out of icu on 06/26/19, trying to get back to inpatient rehab History Interval history: Patient was seen and examined. Follow-up on current diagnosis of AMS. No overnight events reported to me. Imaging, nursing note, chart, labs and old chart reviewed. Discussed with patient and awaiting placement. Hospitalist Physical - Physical exam Narrative exam: Gen: chronically ill appearing, NAD, Awake, aphasia HEENT: NCAT, EOMI, PERRL, Neck: supple, no adenopathy, no thyromegaly, no JVD CVS/Heart: RRR, normal S1S2, pulses present bilaterally Chest/Lungs: CTA B, Symmetrical chest expansion, good air entry bilaterally GI/Abdomen: soft, NTND, good bowel sounds, no guarding or rebound /Bladder: no suprapubic tenderness, no CVA or paraspinal tenderness Extermity/Skin: no c/c/e, no obvious rash MSK: FROM x 3 Neuro: CN 2-12 grossly intact, dysarthria Psych: calm - Constitutional Vitals: Temp Pulse Resp BP Pulse Ox 98.6 F 67 18 150/73 100 06/30/19 08:38 06/30/19 14:38 06/30/19 08:38 06/30/19 14:38 06/30/19 10:08 General appearance: Absent: mild distress Results - Labs CBC & Chem 7: 06/27/19 04:30 06/30/19 05:20 Labs: Laboratory Last Values WBC 3.2 K/mm3 (4.5-11.0) L 06/27/19 04:30 RBC 3.90 M/mm3 (3.65-5.03) 06/27/19 04:30 Hgb 10.2 gm/dl (10.1-14.3) 06/27/19 04:30 Hct 31.7 % (30.3-42.9) 06/27/19 04:30 MCV 81 fl (79-97) 06/27/19 04:30 MCH 26 pg (28-32) L 06/27/19 04:30 MCHC 32 % (30-34) 06/27/19 04:30 RDW 19.6 % (13.2-15.2) H 06/27/19 04:30 Plt Count 214 K/mm3 (140-440) 06/27/19 04:30 Sodium 139 mmol/L (137-145) 06/30/19 05:20 Potassium 4.7 mmol/L (3.6-5.0) D 06/30/19 05:20 Chloride 100.5 mmol/L (98-107) 06/30/19 05:20 Carbon Dioxide 24 mmol/L (22-30) 06/30/19 05:20 19 mmol/L 06/30/19 05:20 BUN 45 mg/dL (7-17) H 06/30/19 05:20 3.3 mg/dL (0.7-1.2) H 06/30/19 05:20 Estimated GFR 18 ml/min 06/30/19 05:20 14 % 06/30/19 05:20 Glucose 166 mg/dL (65-100) H 06/30/19 05:20 Lactic Acid 0.50 mmol/L (0.7-2.0) L 06/22/19 19:38 Calcium 8.9 mg/dL (8.4-10.2) 06/30/19 05:20 0.20 mg/dL (0.00-1.30) 06/22/19 19:38 Active Medications - Current Medications Current Medications: Generic Name Dose Route Start Last Admin Trade Name Freq PRN Reason Stop Dose Admin Acetaminophen 650 mg 06/21/19 20:13 Tylenol PO Q4H PRN Pain MILD(1-3)/Fever >100.5/GALLARDO Albuterol 2.5 mg 06/21/19 20:11 Proventil IH Q3HRT PRN Shortness Of Breath Amlodipine Besylate 10 mg 06/24/19 12:00 06/30/19 10:11 Norvasc PO 10 mg QDAY CASPER Administration Lipase/Protease/Amylase 1 each 06/23/19 14:31 Pancreazahsan Lugo 10,500 Unit FEEDTUBE PRN PRN For Clogged Feeding Tube Aspirin 325 mg 06/23/19 10:00 06/30/19 10:10 Aspirin PO 325 mg QDAY CASPER Administration Atorvastatin Calcium 40 mg 06/21/19 22:00 06/29/19 21:54 Lipitor PO 40 mg QHS CASPER Administration Bisacodyl 10 mg 06/21/19 20:13 Dulcolax [place] QDAY PRN Constipation unrelieved by MOM Clonidine HCl 0.3 mg 06/24/19 19:50 06/30/19 14:38 Catapres PO 0.3 mg Q8HR CASPER Administration Dextrose 50 ml 06/21/19 20:13 D50w (25gm) Syringe IV PRN PRN Hypoglycemia Ferrous Sulfate 308 mg 06/24/19 10:00 06/30/19 10:11 Ferrous Sulfate FEEDTUBE 308 mg DAILY CASPER Administration Folic Acid 1 mg 06/22/19 10:00 06/30/19 10:10 Folvite PO 1 mg QDAY CASPER Administration Heparin Sodium (Porcine) 5,000 unit 06/22/19 22:00 06/30/19 10:11 Heparin SUB-Q 5,000 unit Q12HR CASPER Administration Hydralazine HCl 10 mg 06/21/19 20:13 06/25/19 03:56 Apresoline IV 10 mg Q3H PRN Administration Hypertension Hydralazine HCl 100 mg 06/22/19 14:00 06/30/19 14:38 Apresoline PO 100 mg TID CASPER Administration Labetalol HCl 300 mg 06/28/19 12:05 06/30/19 10:12 Normodyne PO 300 mg BID CASPER Administration Lansoprazole 30 mg 06/23/19 10:00 06/30/19 10:10 Prevacid Solutab FEEDTUBE 30 mg QDAY CASPER Administration Ondansetron HCl 4 mg 06/21/19 20:13 06/21/19 21:39 Zofran Odt PO 4 mg Q6H PRN Administration Nausea And Vomiting Senna 8.6 mg 06/21/19 20:13 Senokot PO Q12H PRN Laxative Effect Simple Syrup 15 ml 06/23/19 14:31 Simple Syrup FEEDTUBE PRN PRN Hypoglycemia Simple Syrup 30 ml 06/23/19 14:31 Simple Syrup FEEDTUBE PRN PRN Hypoglycemia Sodium Bicarbonate 325 mg 06/23/19 14:31 Sodium Bicarbonate FEEDTUBE PRN PRN For Clogged Feeding Tube Sodium Chloride 10 ml 06/21/19 22:00 06/30/19 10:11 Sodium Chloride Flush Syringe 10 Ml IV 10 ml BID CASPER Administration Sodium Chloride 10 ml 06/21/19 20:11 Sodium Chloride Flush Syringe 10 Ml IV PRN PRN LINE FLUSH Nutrition/Malnutrition Assess - Dietary Evaluation Nutrition/Malnutrition Findings: Nutrition Notes Start: 06/23/19 14:10 Freq: Status: Active Protocol: Document 06/25/19 13:38 RM (Rec: 06/25/19 13:43 RM [id number]) Nutrition Notes Initial or Follow up Reassessment Current Diagnosis Acute Kidney Injury,CKD(stage I-IV),Diabetes,Heart Failure, Stroke Other Pertinent Diagnosis Encephalopathy, Dysphagia, Depression Current Diet Nepro at 40 ml/hr Labs/Tests K 4.3 BUN 45 Cr 3.6 Pertinent Medications Zofran Height 5 ft 4 in Weight 77.7 kg [place] Body Weight (kg) 54.54 BMI 29.4 Subjective/Other Information Observed Nepro infusing at goal rate. Per nurse pt is tolerating TF. Percent of energy/protein needs met: 100%/84% Burn Absent Trauma Absent #1 Nutrition Diagnosis Inadequate oral intake Diagnosis Progress(for reassessment Continues documentation) Is patient on ventilator? No Is Patient Ambulatory and/or Out of Bed No REE-([facility]-confined to bed) [phone] Calculation Used for Recommendations [facility] Additional Notes Protein Needs: 93-155g (1.2-2g /kg) Fluid Needs: 1 ml/kcal Nutrition Intervention Nutrition Support: Nepro at 40 ml/hr Water flush of 150 mls q 4 hrs Kcal 1,728 Protein (gm) 78 Fluid (mL) 698 Goal #1 TF tolerance Goal #2 Continue to meet at least 80% of calorie and protein needs via TF Anticipated Discharge Needs: Unable to determine at this time Follow-Up By: 07/01/19 Additional Comments Follow for TF tolerance
--- NOTE | 2019-06-30 19:17 | Progress Note ---
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 Kidney function has improved back to patient's baseline (2) Hypertensive chronic kidney disease with stage 1 through stage 4 chronic kidney disease, or unspecified chronic kidney disease Current Visit: Yes Status: Acute Plan to address problem: Blood pressure control has improved. Continue current medications and Follow-up blood pressure. Okay to transfer to rehabilitation from my standpoint. Awaiting approval by insurance per Patient (3) Heart failure with preserved ejection fraction Current Visit: Yes Status: Acute Plan to address problem: Stable. (4) Encephalopathy Current Visit: Yes Status: Acute Plan to address problem: Mental status improving. Continue current treatment Subjective Date of service: 06/30/19 Principal diagnosis: Hypertensive emergency; Acute encephalopathy; DM II; CHENCHO; CMOP; H/O CVA Interval history: Patient seen lying in bed. She feels much better. Denies pain, nausea or vomiting. No shortness of breath or dizziness. Objective - Exam Narrative Exam: in no acute distress HEENT: NCAT, pink oral mucous membrane Neck: Supple, no venous distention CVS: S1S2 RRR with no murmur, rub or gallop Chest: Clear to auscultation Abdomen: Protuberant, soft, nontender, no organomegaly, bowel sounds are present Extremities: No edema Neuro: Awake, alert no focal deficits - Vital Signs Vital signs: Vital Signs - 12hr 06/30/19 06/30/19 06/30/19 08:28 08:38 10:00 Temperature 98.6 F Pulse Rate 79 72 Pulse Rate [ 86 Left Dorsalis Pedis] Respiratory 17 18 Rate Blood Pressure 126/73 O2 Sat by Pulse 99 99 Oximetry 06/30/19 06/30/19 06/30/19 10:08 10:11 10:12 Temperature Pulse Rate 73 73 73 Pulse Rate [ Left Dorsalis Pedis] Respiratory Rate Blood Pressure 174/83 174/83 174/83 O2 Sat by Pulse 100 Oximetry 06/30/19 06/30/19 13:00 14:38 Temperature Pulse Rate 79 67 Pulse Rate [ Left Dorsalis Pedis] Respiratory Rate Blood Pressure 150/73 O2 Sat by Pulse Oximetry - Lab 06/27/19 04:30 06/30/19 05:20 Most recent lab results Calcium 8.9 mg/dL (8.4-10.2) 06/30/19 05:20 Medications & Allergies - Medications Allergies/Adverse Reactions: Allergies amlodipine besylate [From Norvasc] Allergy (Verified 01/21/14 20:31) Vomiting hydromorphone HCl [From Dilaudid] Allergy (Verified 01/21/14 20:31) Vomiting lisinopril Allergy (Verified 01/21/14 20:31) Unknown Home Medications: Home Medications Medication Instructions Recorded Confirmed Last Taken Type Acetaminophen [Acetaminophen TAB] 650 mg PO Q4H PRN 30 Days tablet 06/21/19 06/27/19 Unknown Rx Aspirin EC 325 mg PO QDAY 30 Days tablet 06/21/19 06/27/19 Unknown Rx AtorvaSTATin [Lipitor] 40 mg PO QHS 30 Days tablet 06/21/19 06/27/19 Unknown Rx Ferrous Sulfate [Feosol 325 MG tab] 325 mg PO QDAY tablet 06/21/19 06/27/19 Un known Rx Folic Acid [Folvite] 1 mg PO QDAY tablet 06/21/19 06/27/19 Unknown Rx Ondansetron [Zofran ODT TAB] 4 mg PO Q6H PRN 30 Days tab.rapdis 06/21/19 06/27/19 Unknown Rx Clonidine HCl [Catapres] 0.3 mg PO BID 06/27/19 06/27/19 Unknown History Insulin Glargine [Lantus] 5 units SQ QHS 06/27/19 06/27/19 Unknown History Labetalol HCl [Labetalol 300mg TAB] 300 mg PO BID 06/27/19 06/27/19 Unknown History hydrALAZINE [Apresoline TAB] 100 mg PO TID 06/27/19 06/27/19 Unknown History Active Medications: Generic Name Dose Route Start Last Admin Trade Name Freq PRN Reason Stop Dose Admin Acetaminophen 650 mg 06/21/19 20:13 Tylenol PO Q4H PRN Pain MILD(1-3)/Fever >100.5/GALLARDO Albuterol 2.5 mg 06/21/19 20:11 Proventil IH Q3HRT PRN Shortness Of Breath Amlodipine Besylate 10 mg 06/24/19 12:00 06/30/19 10:11 Norvasc PO 10 mg QDAY CASPER Administration Lipase/Protease/Amylase 1 each 06/23/19 14:31 Pancrekeren Lugo 10,500 Unit FEEDTUBE PRN PRN For Clogged Feeding Tube Aspirin 325 mg 06/23/19 10:00 06/30/19 10:10 Aspirin PO 325 mg QDAY CASPER Administration Atorvastatin Calcium 40 mg 06/21/19 22:00 06/29/19 21:54 Lipitor PO 40 mg QHS CASPER Administration Bisacodyl 10 mg 06/21/19 20:13 Dulcolax [place] QDAY PRN Constipation unrelieved by MOM Clonidine HCl 0.3 mg 06/24/19 19:50 06/30/19 14:38 Catapres PO 0.3 mg Q8HR CASPER Administration Dextrose 50 ml 06/21/19 20:13 D50w (25gm) Syringe IV PRN PRN Hypoglycemia Ferrous Sulfate 308 mg 06/24/19 10:00 06/30/19 10:11 Ferrous Sulfate FEEDTUBE 308 mg DAILY CASPER Administration Folic Acid 1 mg 06/22/19 10:00 06/30/19 10:10 Folvite PO 1 mg QDAY CASPER Administration Heparin Sodium (Porcine) 5,000 unit 06/22/19 22:00 06/30/19 10:11 Heparin SUB-Q 5,000 unit Q12HR CASPER Administration Hydralazine HCl 10 mg 06/21/19 20:13 06/25/19 03:56 Apresoline IV 10 mg Q3H PRN Administration Hypertension Hydralazine HCl 100 mg 06/22/19 14:00 06/30/19 14:38 Apresoline PO 100 mg TID CASPER Administration Labetalol HCl 300 mg 06/28/19 12:05 06/30/19 10:12 Normodyne PO 300 mg BID CASPER Administration Lansoprazole 30 mg 06/23/19 10:00 06/30/19 10:10 Prevacid Solutab FEEDTUBE 30 mg QDAY CASPER Administration Ondansetron HCl 4 mg 06/21/19 20:13 06/21/19 21:39 Zofran Odt PO 4 mg Q6H PRN Administration Nausea And Vomiting Senna 8.6 mg 06/21/19 20:13 Senokot PO Q12H PRN Laxative Effect Simple Syrup 15 ml 06/23/19 14:31 Simple Syrup FEEDTUBE PRN PRN Hypoglycemia Simple Syrup 30 ml 06/23/19 14:31 Simple Syrup FEEDTUBE PRN PRN Hypoglycemia Sodium Bicarbonate 325 mg 06/23/19 14:31 Sodium Bicarbonate FEEDTUBE PRN PRN For Clogged Feeding Tube Sodium Chloride 10 ml 06/21/19 22:00 06/30/19 10:11 Sodium Chloride Flush Syringe 10 Ml IV 10 ml BID CASPER Administration Sodium Chloride 10 ml 06/21/19 20:11 Sodium Chloride Flush Syringe 10 Ml IV PRN PRN LINE FLUSH
[2019-07-01] MEDS: CATAPRES PO SCH ×2 (05:56→14:07)
[2019-07-01] MEDS: APRESOLINE PO SCH ×2 (08:43→15:25)
[2019-07-01] MEDS: PREVACID SOLUTAB FEEDTUBE SCH (10:04)
[2019-07-01] MEDS: NORVASC PO SCH (10:04)
[2019-07-01] MEDS: FOLVITE PO SCH (10:05)
[2019-07-01] MEDS: NORMODYNE PO SCH (10:05)
[2019-07-01] MEDS: ASPIRIN PO SCH (10:05)
[2019-07-01] MEDS: FERROUS SULFATE FEEDTUBE SCH (10:07)
[2019-07-01] MEDS: SODIUM CHLORIDE FLUSH SYRINGE 10 ML IV SCH (10:08)
[2019-07-01] MEDS: HEPARIN SUB-Q SCH (10:08)
--- NOTE | 2019-07-01 12:17 | Progress Note ---
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 Kidney function has improved back to patient's baseline (2) Hypertensive chronic kidney disease with stage 1 through stage 4 chronic kidney disease, or unspecified chronic kidney disease Current Visit: Yes Status: Acute Plan to address problem: Blood pressure is increasing. Change amlodipine to nifedipine. Follow-up blood pressure. Okay to transfer to rehabilitation from my standpoint. Awaiting approval by insurance per Patient (3) Heart failure with preserved ejection fraction Current Visit: Yes Status: Acute Plan to address problem: Stable. (4) Encephalopathy Current Visit: Yes Status: Acute Plan to address problem: Mental status improving. Continue current treatment Subjective Date of service: 07/01/19 Principal diagnosis: Hypertensive emergency; Acute encephalopathy; DM II; CHENCHO; CMOP; H/O CVA Interval history: Patient seen lying in bed. She feels much better. Getting physical therapy. Denies pain, nausea or vomiting. No shortness of breath or dizziness. Objective - Exam Narrative Exam: Middle-aged -Malaysian female lying in bed in no acute distress HEENT: NCAT, pink oral mucous membrane Neck: Supple, no venous distention CVS: S1S2 RRR with no murmur, rub or gallop Chest: Clear to auscultation Abdomen: Protuberant, soft, nontender, no organomegaly, bowel sounds are present Extremities: No edema Neuro: Awake, hemiparesis - Vital Signs Vital signs: Vital Signs - 12hr 07/01/19 07/01/19 07/01/19 00:29 03:20 05:56 Temperature 97.8 F 99.7 F H Pulse Rate 74 77 72 Respiratory 16 18 Rate Blood Pressure 150/69 150/69 O2 Sat by Pulse 100 100 Oximetry 07/01/19 07/01/19 07/01/19 07:50 10:04 10:05 Temperature 98.6 F Pulse Rate 72 72 Respiratory 18 Rate Blood Pressure 167/78 167/78 167/78 O2 Sat by Pulse Oximetry - Lab 06/27/19 04:30 06/30/19 05:20 Most recent lab results Calcium 8.9 mg/dL (8.4-10.2) 06/30/19 05:20 Medications & Allergies - Medications Allergies/Adverse Reactions: Allergies amlodipine besylate [From Norvasc] Allergy (Verified 01/21/14 20:31) Vomiting hydromorphone HCl [From Dilaudid] Allergy (Verified 01/21/14 20:31) Vomiting lisinopril Allergy (Verified 01/21/14 20:31) Unknown Home Medications: Home Medications Medication Instructions Recorded Confirmed Last Taken Type Acetaminophen [Acetaminophen TAB] 650 mg PO Q4H PRN 30 Days tablet 06/21/19 06/27/19 Unknown Rx Aspirin EC 325 mg PO QDAY 30 Days tablet 06/21/19 06/27/19 Unknown Rx AtorvaSTATin [Lipitor] 40 mg PO QHS 30 Days tablet 06/21/19 06/27/19 Unknown Rx Ferrous Sulfate [Feosol 325 MG tab] 325 mg PO QDAY tablet 06/21/19 06/27/19 Unknown Rx Folic Acid [Folvite] 1 mg PO QDAY tablet 06/21/19 06/27/19 Unknown Rx Ondansetron [Zofran ODT TAB] 4 mg PO Q6H PRN 30 Days tab.rapdis 06/21/19 06/27/19 Unknown Rx Clonidine HCl [Catapres] 0.3 mg PO BID 06/27/19 06/27/19 Unknown History Insulin Glargine [Lantus] 5 units SQ QHS 06/27/19 06/27/19 Unknown History Labetalol HCl [Labetalol 300mg TAB] 300 mg PO BID 06/27/19 06/27/19 Unknown History hydrALAZINE [Apresoline TAB] 100 mg PO TID 06/27/19 06/27/19 Unknown History Active Medications: Generic Name Dose Route Start Last Admin Trade Name Freq PRN Reason Stop Dose Admin Acetaminophen 650 mg 06/21/19 20:13 Tylenol PO Q4H PRN Pain MILD(1-3)/Fever >100.5/GALLARDO Albuterol 2.5 mg 06/21/19 20:11 Proventil IH Q3HRT PRN Shortness Of Breath Amlodipine Besylate 10 mg 06/24/19 12:00 07/01/19 10:04 Norvasc PO 10 mg QDAY CASPER Administration Lipase/Protease/Amylase 1 each 06/23/19 14:31 Pancrekeren Lugo 10,500 Unit FEEDTUBE PRN PRN For Clogged Feeding Tube Aspirin 325 mg 06/23/19 10:00 07/01/19 10:05 Aspirin PO 325 mg QDAY CASPER Administration Atorvastatin Calcium 40 mg 06/21/19 22:00 06/30/19 22:30 Lipitor PO 40 mg QHS CASPER Administration Bisacodyl 10 mg 06/21/19 20:13 Dulcolax [place] QDAY PRN Constipation unrelieved by MOM Clonidine HCl 0.3 mg 06/24/19 19:50 07/01/19 05:56 Catapres PO 0.3 mg Q8HR CASPER Administration Dextrose 50 ml 06/21/19 20:13 D50w (25gm) Syringe IV PRN PRN Hypoglycemia Ferrous Sulfate 308 mg 06/24/19 10:00 07/01/19 10:07 Ferrous Sulfate FEEDTUBE 308 mg DAILY CASPER Administration Folic Acid 1 mg 06/22/19 10:00 07/01/19 10:05 Folvite PO 1 mg QDAY CASPER Administration Heparin Sodium (Porcine) 5,000 unit 06/22/19 22:00 07/01/19 10:08 Heparin SUB-Q 5,000 unit Q12HR CASPER Administration Hydralazine HCl 10 mg 06/21/19 20:13 06/25/19 03:56 Apresoline IV 10 mg Q3H PRN Administration Hypertension Hydralazine HCl 100 mg 06/22/19 14:00 07/01/19 08:43 Apresoline PO 100 mg TID CASPER Administration Labetalol HCl 300 mg 06/28/19 12:05 07/01/19 10:05 Normodyne PO 300 mg BID CASPER Administration Lansoprazole 30 mg 06/23/19 10:00 07/01/19 10:04 Prevacid Solutab FEEDTUBE 30 mg QDAY CASPER Administration Ondansetron HCl 4 mg 06/21/19 20:13 06/21/19 21:39 Zofran Odt PO 4 mg Q6H PRN Administration Nausea And Vomiting Senna 8.6 mg 06/21/19 20:13 Senokot PO Q12H PRN Laxative Effect Simple Syrup 15 ml 06/23/19 14:31 Simple Syrup FEEDTUBE PRN PRN Hypoglycemia Simple Syrup 30 ml 06/23/19 14:31 Simple Syrup FEEDTUBE PRN PRN Hypoglycemia Sodium Bicarbonate 325 mg 06/23/19 14:31 Sodium Bicarbonate FEEDTUBE PRN PRN For Clogged Feeding Tube Sodium Chloride 10 ml 06/21/19 22:00 07/01/19 10:08 Sodium Chloride Flush Syringe 10 Ml IV 10 ml BID CASPER Administration Sodium Chloride 10 ml 06/21/19 20:11 Sodium Chloride Flush Syringe 10 Ml IV PRN PRN LINE FLUSH
--- NOTE | 2019-07-01 12:33 | Progress Note ---
Assessment and Plan Assessment and plan: Patient is 49-year-old woman with a history of anemia, diabetes, heart failure, stroke, hypertension, COPD, CVA with left side deficit for which she was in [facility] rehabilitation unit from [facility], who was about to be discharge from discharge to the acute Inpatient unit for confusion and elevated blood pressure with systolic BP over 200, inability to talk which began on the weekend per Dr. Singh. * MRI brain without contrast IMPRESSION: Small areas of subacute ischemia are identified in the head of the right caudate nucleus, left parietal white matter and left splenium of the corpus callosum as described. Volume loss. Advanced chronic white matter changes. Chronic focal infarcts in the right zavala radiata and inferior left cerebellum. -New Acute Left ischemic stroke while in Rehab unit: treat with ASA and statin -Hypertensive emergency; off Cardene drip on 06/25/19, passed swallow evaluation, Restarted BB. -Acute metabolic Hypertensive encephalopathy: Improving as blood pressure comes down -CKD stage 4, unchanged, avoid nephrotoxins, nephrology consult -hx of DM appears to be in remission, as patient a1c is 4.9 last month, she has had normal a1c of < 6 since 2017, no need for insulins at this time -Moderate protein malnutrition, Dietitian consult -Diastolic CHF by history; keep euvolemic -Dypshagia, SS consulted, input noted, passed swallow evaluation today, removed NGT 06/26/19, start mechanical soft diet -Depression, MH consult -DVT prophylaxis reviewed Disposition: continue inpatient care, transferred out of icu on 06/26/19, trying to get back to inpatient rehab History Interval history: Patient was seen and examined. Follow-up on current diagnosis of AMS. No overnight events reported to me. Imaging, nursing note, chart, labs and old chart reviewed. Discussed with patient and awaiting placement. Hospitalist Physical - Physical exam Narrative exam: Gen: chronically ill appearing, NAD, Awake, aphasia HEENT: NCAT, EOMI, PERRL, Neck: supple, no adenopathy, no thyromegaly, no JVD CVS/Heart: RRR, normal S1S2, pulses present bilaterally Chest/Lungs: CTA B, Symmetrical chest expansion, good air entry bilaterally GI/Abdomen: soft, NTND, good bowel sounds, no guarding or rebound /Bladder: no suprapubic tenderness, no CVA or paraspinal tenderness Extermity/Skin: no c/c/e, no obvious rash MSK: FROM x 3 Neuro: CN 2-12 grossly intact, dysarthria Psych: calm - Constitutional Vitals: Temp Pulse Resp BP Pulse Ox 98.6 F 72 18 167/78 100 07/01/19 07:50 07/01/19 10:05 07/01/19 07:50 07/01/19 10:05 07/01/19 03:20 General appearance: Absent: mild distress Results - Labs CBC & Chem 7: 06/27/19 04:30 06/30/19 05:20 Labs: Laboratory Last Values WBC 3.2 K/mm3 (4.5-11.0) L 06/27/19 04:30 RBC 3.90 M/mm3 (3.65-5.03) 06/27/19 04:30 Hgb 10.2 gm/dl (10.1-14.3) 06/27/19 04:30 Hct 31.7 % (30.3-42.9) 06/27/19 04:30 MCV 81 fl (79-97) 06/27/19 04:30 MCH 26 pg (28-32) L 06/27/19 04:30 MCHC 32 % (30-34) 06/27/19 04:30 RDW 19.6 % (13.2-15.2) H 06/27/19 04:30 Plt Count 214 K/mm3 (140-440) 06/27/19 04:30 Sodium 139 mmol/L (137-145) 06/30/19 05:20 Potassium 4.7 mmol/L (3.6-5.0) D 06/30/19 05:20 Chloride 100.5 mmol/L (98-107) 06/30/19 05:20 Carbon Dioxide 24 mmol/L (22-30) 06/30/19 05:20 19 mmol/L 06/30/19 05:20 BUN 45 mg/dL (7-17) H 06/30/19 05:20 3.3 mg/dL (0.7-1.2) H 06/30/19 05:20 Estimated GFR 18 ml/min 06/30/19 05:20 14 % 06/30/19 05:20 Glucose 166 mg/dL (65-100) H 06/30/19 05:20 Lactic Acid 0.50 mmol/L (0.7-2.0) L 06/22/19 19:38 Calcium 8.9 mg/dL (8.4-10.2) 06/30/19 05:20 0.20 mg/dL (0.00-1.30) 06/22/19 19:38 Active Medications - Current Medications Current Medications: Generic Name Dose Route Start Last Admin Trade Name Freq PRN Reason Stop Dose Admin Acetaminophen 650 mg 06/21/19 20:13 Tylenol PO Q4H PRN Pain MILD(1-3)/Fever >100.5/GALLARDO Albuterol 2.5 mg 06/21/19 20:11 Proventil IH Q3HRT PRN Shortness Of Breath Lipase/Protease/Amylase 1 each 06/23/19 14:31 Pancreaze 10,500 Unit FEEDTUBE PRN PRN For Clogged Feeding Tube Aspirin 325 mg 06/23/19 10:00 07/01/19 10:05 Aspirin PO 325 mg QDAY CASPER Administration Atorvastatin Calcium 40 mg 06/21/19 22:00 06/30/19 22:30 Lipitor PO 40 mg QHS CASPER Administration Bisacodyl 10 mg 06/21/19 20:13 Dulcolax [place] QDAY PRN Constipation unrelieved by MOM Clonidine HCl 0.3 mg 06/24/19 19:50 07/01/19 05:56 Catapres PO 0.3 mg Q8HR CASPER Administration Dextrose 50 ml 06/21/19 20:13 D50w (25gm) Syringe IV PRN PRN Hypoglycemia Ferrous Sulfate 308 mg 06/24/19 10:00 07/01/19 10:07 Ferrous Sulfate FEEDTUBE 308 mg DAILY CASPER Administration Folic Acid 1 mg 06/22/19 10:00 07/01/19 10:05 Folvite PO 1 mg QDAY CASPER Administration Heparin Sodium (Porcine) 5,000 unit 06/22/19 22:00 07/01/19 10:08 Heparin SUB-Q 5,000 unit Q12HR CASPER Administration Hydralazine HCl 10 mg 06/21/19 20:13 06/25/19 03:56 Apresoline IV 10 mg Q3H PRN Administration Hypertension Hydralazine HCl 100 mg 06/22/19 14:00 07/01/19 08:43 Apresoline PO 100 mg TID CASPER Administration Labetalol HCl 300 mg 06/28/19 12:05 07/01/19 10:05 Normodyne PO 300 mg BID CASPER Administration Lansoprazole 30 mg 06/23/19 10:00 07/01/19 10:04 Prevacid Solutab FEEDTUBE 30 mg QDAY CASPER Administration Nifedipine 30 mg 07/01/19 22:00 Procardia Xl PO DAILY CASPER Ondansetron HCl 4 mg 06/21/19 20:13 06/21/19 21:39 Zofran Odt PO 4 mg Q6H PRN Administration Nausea And Vomiting Senna 8.6 mg 06/21/19 20:13 Senokot PO Q12H PRN Laxative Effect Simple Syrup 15 ml 06/23/19 14:31 Simple Syrup FEEDTUBE PRN PRN Hypoglycemia Simple Syrup 30 ml 06/23/19 14:31 Simple Syrup FEEDTUBE PRN PRN Hypoglycemia Sodium Bicarbonate 325 mg 06/23/19 14:31 Sodium Bicarbonate FEEDTUBE PRN PRN For Clogged Feeding Tube Sodium Chloride 10 ml 06/21/19 22:00 07/01/19 10:08 Sodium Chloride Flush Syringe 10 Ml IV 10 ml BID CASPER Administration Sodium Chloride 10 ml 06/21/19 20:11 Sodium Chloride Flush Syringe 10 Ml IV PRN PRN LINE FLUSH Nutrition/Malnutrition Assess - Dietary Evaluation Nutrition/Malnutrition Findings: Nutrition Notes Start: 06/23/19 14:10 Freq: Status: Active Protocol: Document 06/25/19 13:38 RM (Rec: 06/25/19 13:43 RM [id number]) Nutrition Notes Initial or Follow up Reassessment Current Diagnosis Acute Kidney Injury,CKD(stage I-IV),Diabetes,Heart Failure, Stroke Other Pertinent Diagnosis Encephalopathy, Dysphagia, Depression Current Diet Nepro at 40 ml/hr Labs/Tests K 4.3 BUN 45 Cr 3.6 Pertinent Medications Zofran Height 5 ft 4 in Weight 77.7 kg [place] Body Weight (kg) 54.54 BMI 29.4 Subjective/Other Information Observed Nepro infusing at goal rate. Per nurse pt is tolerating TF. Percent of energy/protein needs met: 100%/84% Burn Absent Trauma Absent #1 Nutrition Diagnosis Inadequate oral intake Diagnosis Progress(for reassessment Continues documentation) Is patient on ventilator? No Is Patient Ambulatory and/or Out of Bed No REE-([facility]-confined to bed) [phone] Calculation Used for Recommendations [facility] Additional Notes Protein Needs: 93-155g (1.2-2g /kg) Fluid Needs: 1 ml/kcal Nutrition Intervention Nutrition Support: Nepro at 40 ml/hr Water flush of 150 mls q 4 hrs Kcal 1,728 Protein (gm) 78 Fluid (mL) 698 Goal #1 TF tolerance Goal #2 Continue to meet at least 80% of calorie and protein needs via TF Anticipated Discharge Needs: Unable to determine at this time Follow-Up By: 07/01/19 Additional Comments Follow for TF tolerance
[2019-07-01 14:09] VITALS: BP 143/72
--- NOTE | 2019-07-01 17:55 | Discharge Summary ---
Providers - Providers Date of Admission: 06/21/19 20:11 Attending physician: DIAMANTE WEINER MD 06/22/19 09:01 Consult to Physician [CONS] Routine Comment: Consulting Provider: KATIE QUINONES Physician Instructions: Reason For Exam: critical care 06/22/19 12:19 Consult to Physician [CONS] Routine Comment: Consulting Provider: JOSH NIELSEN Physician Instructions: Reason For Exam: ckd 06/22/19 12:20 Consult to Dietitian/Nutrition [CONS] Routine Physician Instructions: Reason For Exam: Reason for Consult: Malnutrition 06/22/19 12:57 Speech Therapy Evaluation and Treat [CONS] Routine Reason For Exam: evaluate swallowing ability. 06/23/19 14:11 Consult to Dietitian/Nutrition [CONS] Routine Physician Instructions: Reason For Exam: Reason for Consult: Write/Manage Tube Feeding 06/23/19 14:39 Physical Therapy Evaluation and Treat [CONS] Routine Comment: thanks Reason For Exam: evaluate and treat; s/p CVA 06/24/19 12:30 Occupational Therapy Evaluate and Treat [CONS] Routine Comment: Reason For Exam: evaluate and treat Primary care physician: MEET IRVIN Hospitalization Reason for admission: cva Condition: Stable Hospital course: Patient is 49-year-old woman with a history of anemia, diabetes, heart failure, stroke, hypertension, COPD, CVA with left side deficit for which she was in [facility] rehabilitation unit from [facility], who was about to be discharge from discharge to the acute Inpatient unit for confusion and elevated blood pressure with systolic BP over 200, inability to talk which began on the weekend per Dr. Singh. * MRI brain without contrast IMPRESSION: Small areas of subacute ischemia are identified in the head of the right caudate nucleus, left parietal white mat ter and left splenium of the corpus callosum as described. Volume loss. Advanced chronic white matter changes. Chronic focal infarcts in the right zavala radiata and inferior left cerebellum. -New Acute Left ischemic stroke while in Rehab unit: treated with ASA and statin ?secondary to HTN -Hypertensive emergency; off Cardene drip on 06/25/19, passed swallow evaluation, Restarted BB. -Acute metabolic Hypertensive encephalopathy: Improving as blood pressure comes down -CKD stage 4, unchanged, avoid nephrotoxins, nephrology consult -hx of DM appears to be in remission, as patient a1c is 4.9 last month, she has had normal a1c of < 6 since 2017, no need for insulins at this time -Moderate protein malnutrition, Dietitian consult -Diastolic CHF by history; chronic with no acute excarbation during this admi ssion. keep euvolemic -Dypshagia, SS consulted, input noted, passed swallow evaluation today, removed NGT 06/26/19, start mechanical soft diet -Depression, MH evaluated the patient Disposition: [id number] INPT REHAB FACILITY Time spent for discharge: 35 mins Core Measure Documentation - Palliative Care Palliative Care/ Comfort Measures: Not Applicable - Core Measures Any of the following diagnoses?: stroke, none - Stroke Discharge Requirements Statin for LDL = or >70 mg/dl on DC: Yes Anticoag for atrial fib/atrial flutter: Not Applicable Antithrombotic for ischemic stroke: Yes Exam - Physical Exam Narrative exam: Gen: chronically ill appearing, NAD, Awake, aphasia HEENT: NCAT, EOMI, PERRL, Neck: supple, no adenopathy, no thyromegaly, no JVD CVS/Heart: RRR, normal S1S2, pulses present bilaterally Chest/Lungs: CTA B, Symmetrical chest expansion, good air entry bilaterally GI/Abdomen: soft, NTND, good bowel sounds, no guarding or rebound /Bladder: no suprapubic tenderness, no CVA or paraspinal tenderness Extermity/Skin: no c/c/e, no obvious rash MSK: FROM x 3 Neuro: CN 2-12 grossly intact, dysarthria Psych: calm - Constitutional Vitals: Temp Pulse Resp BP Pulse Ox 98.6 F 72 18 143/72 100 07/01/19 07:50 07/01/19 14:07 07/01/19 10:00 07/01/19 14:07 07/01/19 03:20 Plan Activity: advance as tolerated, fall precautions Diet: diabetic Special Instructions: record daily BP diary, record blood sugar diary Follow up with: MEET IRVIN MD [Primary Care Provider] - 7 Days JOSH NIELSEN MD [Staff Physician] - 7 Days RAFFI DAHL MD [Staff Physician] - 7 Days
[2019-07-01] MEDS ORDERED: PROCARDIA XL PO SCH (22:00)
== END 2019-07-01 20:43 | DRG 92 ==
LOC: CC1 19:57 → UNDOADMIN 19:57 → CC1 20:11 → 4A 06-26 16:34
PROVIDERS: ADMIT Internal Medicine; ATTEND Internal Medicine
DX: G92 Toxic encephalopathy (principal); I16.1 Hypertensive emergency; I13.0 Hypertensive heart and chronic kidney disease with heart failure and stage 1 through stage 4 chronic kidney disease, or unspecified chronic kidney disease; I67.4 Hypertensive encephalopathy; N17.9 Acute kidney failure, unspecified; E44.0 Moderate protein-calorie malnutrition; I42.9 Cardiomyopathy, unspecified; N18.4 Chronic kidney disease, stage 4 (severe); I50.42 Chronic combined systolic (congestive) and diastolic (congestive) heart failure; I69.354 Hemiplegia and hemiparesis following cerebral infarction affecting left non-dominant side; E11.22 Type 2 diabetes mellitus with diabetic chronic kidney disease; D64.9 Anemia, unspecified; R13.12 Dysphagia, oropharyngeal phase; J44.9 Chronic obstructive pulmonary disease, unspecified; F32.9 Major depressive disorder, single episode, unspecified; Z68.30 Body mass index [BMI] 30.0-30.9, adult; Z90.49 Acquired absence of other specified parts of digestive tract; Z83.3 Family history of diabetes mellitus; Z82.49 Family history of ischemic heart disease and other diseases of the circulatory system; Z88.5 Allergy status to narcotic agent; Z79.899 Other long term (current) drug therapy; Z79.82 Long term (current) use of aspirin
CPT/HCPCS: 36415; 70551; 71045; 74018; 80048; 82140; 82962; 85027; 86140; 93306; 94640; G0378; A9270-GY; C9113; J0360; J1644; J2060; J2765; J7050; Q0162

== ENCOUNTER 2019-07-01 17:37 | Inpatient (IN) | payer MEDICAID ==
[2019-07-01] MEDS ORDERED: D50W (25GM) Syringe IV PRN (20:02)
[2019-07-01] MEDS ORDERED: TYLENOL PO PRN (20:15)
[2019-07-01] MEDS ORDERED: DULCOLAX PR PRN (20:16)
[2019-07-01] MEDS ORDERED: ZOFRAN ODT PO PRN (20:16)
[2019-07-01] MEDS ORDERED: PROVENTIL IH PRN (20:16)
[2019-07-01] MEDS: CATAPRES PO SCH (23:03)
[2019-07-01] MEDS: NORMODYNE PO SCH (23:04)
[2019-07-01] MEDS: HEPARIN SUB-Q SCH (23:05)
[2019-07-01] MEDS: HumaLOG SUB-Q SCH (23:28)
--- NOTE | 2019-07-02 03:38 | Consultation ---
<DANYA MEEHAN - Last Filed: 07/02/19 07:20> History of Present Illness - Reason for Consult Consult date: 07/02/19 medical management Requesting physician: SAMUEL RANDALL III - History of Present Illness Pt is a 49 year old female with PMHx uncontrolled HTN, CVA x 2, anemia, diabetes, heart failure, stroke, hypertension, COPD, CVA with left side arm contracture who was admitted for acute CVA with left am contraction deformity. Pt was transferred to inpatient rehab and hospitalist is consulted for medical management. Pt was seen in room, she is alert and orientated, answer to question appropriately, pt was able to provide medical history, her condition was stable, VS WNL, physical exam was WNL except for left arm deficit, pt is able to move the left arm with limitation, speech is clear. We will continue to following the pt along with rehab physician, her medication was reviewed. Past History Past Medical History: diabetes, hypertension, stroke Medications and Allergies Allergies Allergy/AdvReac Type Severity Reaction Status Date / Time amlodipine besylate Allergy Vomiting Verified 01/21/14 20:31 [From Norvasc] hydromorphone HCl Allergy Vomiting Verified 01/21/14 20:31 [From Dilaudid] lisinopril Allergy Unknown Verified 01/21/14 20:31 Home Medications Medication Instructions Recorded Confirmed Last Taken Type Acetaminophen [Acetaminophen TAB] 650 mg PO Q4H PRN 30 Days tablet 06/21/19 07/02/19 07/01/19 Rx Aspirin EC 325 mg PO QDAY 30 Days tablet 06/21/19 07/02/19 07/01/19 Rx 325 AtorvaSTATin [Lipitor] 40 mg PO QHS 30 Days tablet 06/21/19 07/02/19 07/01/19 Rx 40 Ferrous Sulfate [Feosol 325 MG tab] 325 mg PO QDAY tablet 06/21/19 07/02/19 07/01/19 Rx 325 Folic Acid [Folvite] 1 mg PO QDAY tablet 06/21/19 07/02/19 07/01/19 Rx 1 Ondansetron [Zofran ODT TAB] 4 mg PO Q6H PRN 30 Days tab.rapdis 06/21/19 07/02/19 07/01/19 Rx 4 Clonidine HCl [Catapres] 0.3 mg PO BID 06/27/19 07/02/19 07/01/19 History 0.3 Insulin Glargine [Lantus] 5 units SQ QHS 06/27/19 07/02/19 07/01/19 History 2 Labetalol HCl [Labetalol 300mg TAB] 300 mg PO BID 06/27/19 07/02/19 07/01/19 History 300 hydrALAZINE [Apresoline TAB] 100 mg PO TID 06/27/19 07/02/19 07/01/19 History 325 Lansoprazole Solutab [Prevacid 30 mg FEEDTUBE QDAY tab.rapdis 07/01/19 07/02/19 07/01/19 Rx Solutab] Lipase/Protease/Amylase [Pancreaze 1 each FEEDTUBE PRN PRN capsule 07/01/19 07/02/19 07/01/19 Rx 10,500 Unit] 1 Sennosides Tab [Senokot] 8.6 mg PO Q12H PRN tablet 07/01/19 07/02/19 07/01/19 Rx 8.6 Active Meds: Active Medications Acetaminophen (Tylenol) 650 mg PO Q6H PRN PRN Reason: Non Cardiac Pain or Temp>100.5 Albuterol (Proventil) 2.5 mg IH Q4HRT PRN PRN Reason: Shortness Of Breath Aspirin (Ecotrin) 325 mg PO QDAY [facility] Atorvastatin Calcium (Lipitor) 40 mg PO QHS [facility] Last Admin: 07/01/19 23:04 Dose: 40 mg Documented by: Bisacodyl (Dulcolax) 10 mg HI QDAY PRN PRN Reason: Constipation Clonidine HCl (Catapres) 0.3 mg PO Q8HR [facility] Last Admin: 07/01/19 23:03 Dose: 0.3 mg Documented by: Dextrose (D50w (25gm) Syringe) 50 ml IV PRN PRN PRN Reason: Hypoglycemia Ferrous Sulfate (Feosol) 325 mg PO QDAY [facility] Folic Acid (Folvite) 1 mg PO QDAY [facility] Heparin Sodium (Porcine) (Heparin) 5,000 unit SUB-Q Q8HR [facility] Last Admin: 07/01/19 23:05 Dose: 5,000 unit Documented by: Hydralazine HCl (Apresoline) 100 mg PO TID [facility] Hydralazine HCl (Apresoline) 10 mg IV Q4H PRN PRN Reason: Hypertension Insulin Human Lispro (Humalog) 0 unit SUB-Q ACHS [facility]; Protocol Last Admin: 07/01/19 23:28 Dose: 2 unit Documented by: Labetalol HCl (Normodyne) 300 mg PO BID [facility] Last Admin: 07/01/19 23:04 Dose: 300 mg Documented by: Nifedipine (Procardia Xl) 30 mg PO QDAY [facility] Ondansetron HCl (Zofran Odt) 4 mg PO Q8H PRN PRN Reason: Nausea And Vomiting Pantoprazole Sodium (Protonix) 20 mg PO QDAY [facility] Polyethylene Glycol (Miralax 3350) 17 gm PO QDAY PRN PRN Reason: Constipation Exam - Constitutional General appearance: Present: no acute distress - EENT Eyes: Present: PERRL, EOM intact ENT: hearing intact - Neck Neck: Present: normal ROM - Respiratory Respiratory effort: normal Respiratory: bilateral: CTA - Cardiovascular Rhythm: regular Heart Sounds: Present: S1 & S2 - Extremities Extremities: no ischemia, No edema Peripheral Pulses: within normal limits - Abdominal General gastrointestinal: Present: non-tender, non-distended - Rectal Rectal Exam: deferred - Integumentary Integumentary: Present: clear, warm, dry - Musculoskeletal Musculoskeletal: left sided weakness - Psychiatric Psychiatric: cooperative - Neurologic Neurologic: moves all extremities Assessment and Plan 1. HTN (BP stable) 2. CVA x 2 4. Anemia 5. DM type 2 6. CHF (EF unknown) 7. Stroke 8. Hypertension 9. COPD Plan: Admitted to inpt rehab Continue current meds Monitor BG ACHS with insulin per Sliding scale PE per rehab physycian Cardiac/ 2 gram sodium diet Further plan per hospital course <NEERU GUERRA - Last Filed: 07/14/19 17:08> Medications and Allergies Active Meds: Active Medications Acetaminophen (Tylenol) 650 mg PO Q6H PRN PRN Reason: Non Cardiac Pain or Temp>100.5 Albuterol (Proventil) 2.5 mg IH Q4HRT PRN PRN Reason: Shortness Of Breath Aspirin (Ecotrin) 325 mg PO QDAY [facility] Last Admin: 07/14/19 12:04 Dose: 325 mg Documented by: Atorvastatin Calcium (Lipitor) 40 mg PO QHS [facility] Last Admin: 07/13/19 21:13 Dose: 40 mg Documented by: Bisacodyl (Dulcolax) 10 mg HI QDAY PRN PRN Reason: Constipation Bisacodyl (Dulcolax) 5 mg PO BID PRN PRN Reason: Constipation Last Admin: 07/08/19 12:38 Dose: 5 mg Documented by: Clonidine HCl (Catapres) 0.1 mg PO Q8HR [facility] Dextrose (D50w (25gm) Syringe) 50 ml IV PRN PRN PRN Reason: Hypoglycemia Ferrous Sulfate (Feosol) 325 mg PO QDAY [facility] Last Admin: 07/14/19 12:18 Dose: 325 mg Documented by: Folic Acid (Folvite) 1 mg PO QDAY [facility] Last Admin: 07/14/19 12:03 Dose: 1 mg Documented by: Heparin Sodium (Porcine) (Heparin) 5,000 unit SUB-Q Q8HR [facility] Last Admin: 07/14/19 05:23 Dose: Not Given Documented by: Hydralazine HCl (Apresoline) 100 mg PO TID [facility] Last Admin: 07/14/19 11:44 Dose: Not Given Documented by: Hydralazine HCl (Apresoline) 10 mg IV Q4H PRN PRN Reason: Hypertension Last Admin: 07/09/19 02:43 Dose: 10 mg Documented by: Insulin Human Lispro (Humalog) 0 unit SUB-Q [facility]; Protocol Last Admin: 07/14/19 12:02 Dose: 1 unit Documented by: Labetalol HCl (Normodyne) 300 mg PO BID [facility] Last Admin: 07/14/19 11:44 Dose: Not Given Documented by: Nifedipine (Procardia Xl) 60 mg PO Q12H [facility] Last Admin: 07/14/19 05:23 Dose: 60 mg Documented by: Ondansetron HCl (Zofran Odt) 4 mg PO Q8H PRN PRN Reason: Nausea And Vomiting Last Admin: 07/06/19 23:20 Dose: 4 mg Documented by: Ondansetron HCl (Zofran) 4 mg IV Q6H PRN PRN Reason: Nausea And Vomiting Last Admin: 07/10/19 06:10 Dose: 4 mg Documented by: Pantoprazole Sodium (Protonix) 20 mg PO QDAY [facility] Last Admin: 07/14/19 12:03 Dose: 20 mg Documented by: Polyethylene Glycol (Miralax 3350) 17 gm PO QDAY PRN PRN Reason: Constipation Last Admin: 07/14/19 12:04 Dose: 17 gm Documented by: Exam - Constitutional Vitals: Temp Pulse Resp BP Pulse Ox 98.3 F 74 18 138/70 98 07/14/19 16:21 07/14/19 16:20 07/14/19 16:21 07/14/19 16:21 07/14/19 16:20 Results - Labs CBC & Chem 7: 07/13/19 06:38 07/13/19 06:38 Labs: Abnormal lab results 07/13/19 07/13/19 07/14/19 Range/Units 16:13 21:31 08:02 POC Glucose 218 H 151 H 169 H (70-105) 07/14/19 07/14/19 Range/Units 12:00 16:29 POC Glucose 187 H 222 H (70-105) Assessment and Plan I personally discussed the patient with the GAMES MANAGER-C and I agree with the above documentations.
[2019-07-02] MEDS: CATAPRES PO SCH ×3 (05:46→22:06)
[2019-07-02] MEDS: HEPARIN SUB-Q SCH ×3 (05:47→22:07)
--- NOTE | 2019-07-02 07:02 | History and Physical Report ---
History of Present Illness Date: 07/02/19 Date of admission: 07/01/19 20:02 Chief Complaint: CVA History of present illness: 49-year-old female admitted to outside hospital with shortness of breath and dyspnea on exertion. She is found to have a CHF exacerbation and hypertensive urgency with blood pressure 211/104. Cardiology and nephrology consults were placed. Lasix was discontinued due to elevated creatinine and should be restarted once creatinine is less than 3. Patient's baseline creatinine is 2.1- 2.2. Fluid restriction was started at 15 mL per day. Clonidine and hydralazine were both discontinued patient was continued on labetalol and verapamil. She had to iron infusions. Uncertain why patient was taken off of statin but per patient and her PCP advised not to take it. She does have a history of CVA but was only on aspirin. States statin was stopped by [employer] due to pain in left shoulder which was more likely due to tone. Statin was restarted at outside Hospital. We'll discuss secondary stroke prevention with patient made sure that she and family understand her need to continue with the statin. Patient also has a history of relapsing remitting multiple sclerosis but has not had a flair in 3 years. States she has falls about once a week. Patient is known to the service and was recently discharged to the acute care side of the hospital due to altered mental status, hypertensive emergency and ultimately CVA. Leading up to the transfer the patient's antihypertensive medications were held on several occasions despite written and verbal orders to the contrary. Patient's blood pressure spiked and she developed AMS. Complicating the issue she was also some recently started on baclofen and it was difficult to tell if she was having the altered mental status due to the low dose of baclofen or if she was actually having a CVA at the time. There were no additional findings other than AMS to strongly suggest CVA during her acute episode. During this time she remained responsive but was definitely different than she was before. She was not able to safely swallow at the time due to the altered mental status and so all oral antihypertensives were then stopped and replaced with IV antihypertensives. An attempt was made to obtain a stat MRI head however due to the issue occurring on the weekend this was not available. We did obtain a stat repeat head CT which was not different from prior head CT that was ordered earlier in the day. Neurology consult requested a CT with contrast however due to her renal function nephrology did not want to go this route and I agreed. At that point we contacted hospitalist and discharged her to their care where she was started on a Cardene drip and her blood pressure was slowly corrected. (Unfortunately we were unable to keep her at a lower dose of clonidine which she states makes her drowsy home. We had hoped to control her blood pressure with either a lower dose of clonidine are without clonidine at all. We will monitor for drowsiness and if it becomes problematic will attempt to transition to other alternatives.) Once MRIs were available again they obtained an MRI head which did show subacute infarct. She had difficulty with speech and dysphagia initially which were treated by MOLD SETTER and she regained her ability to swallow before being readmitted on rehabilitation. At this point she is deemed stable enough to restart her rehabilitation and hopefully regain the ground that we have lost to get her to the point of being able to return home. I did consult nephrology to continue seeing her for her renal function as well as for optimization of her hypertension which is linked to her poor renal function. Have also written explicit orders and talk to nursing about holding of any blood pressure medications. Orders on each antihypertensive medication and a general communication order clearly state to call me before holding any of her antihypertensives if she is anywhere outside of the hold parameters that are listed. Briefly discussed in team conference. Evals in progress. Continue rehab Past History Past Medical History: anemia, diabetes, heart failure, hypertension, stroke, other (CKD, Huerta's Palsy, Relapsing/remitting MS) Past Surgical History: cholecystectomy Social history: lives with family (Intermittent presence of sister. Father also assists. 2 story), full code, other (Used RW). denies: smoking (former), alcohol abuse, prescription drug abuse, IV drug use Family history: diabetes, hypertension, stroke Medications and Allergies Allergies Allergy/AdvReac Type Severity Reaction Status Date / Time amlodipine besylate Allergy Vomiting Verified 01/21/14 20:31 [From Norvasc] hydromorphone HCl Allergy Vomiting Verified 01/21/14 20:31 [From Dilaudid] lisinopril Allergy Unknown Verified 01/21/14 20:31 Home Medications Medication Instructions Recorded Confirmed Last Taken Type Acetaminophen [Acetaminophen TAB] 650 mg PO Q4H PRN 30 Days tablet 06/21/19 07/02/19 07/01/19 Rx Aspirin EC 325 mg PO QDAY 30 Days tablet 06/21/19 07/02/19 07/01/19 Rx 325 AtorvaSTATin [Lipitor] 40 mg PO QHS 30 Days tablet 06/21/19 07/02/19 07/01/19 Rx 40 Ferrous Sulfate [Feosol 325 MG tab] 325 mg PO QDAY tablet 06/21/19 07/02/19 07/01/19 Rx 325 Folic Acid [Folvite] 1 mg PO QDAY tablet 06/21/19 07/02/19 07/01/19 Rx 1 Ondansetron [Zofran ODT TAB] 4 mg PO Q6H PRN 30 Days tab.rapdis 06/21/1907/0207/01/19 Rx 4 Clonidine HCl [Catapres] 0.3 mg PO BID 06/27/19 07/02/19 07/01/19 History 0.3 Insulin Glargine [Lantus] 5 units SQ QHS 06/27/19 07/02/19 07/01/19 History 2 Labetalol HCl [Labetalol 300mg TAB] 300 mg PO BID 06/27/19 07/02/19 07/01/19 History 300 hydrALAZINE [Apresoline TAB] 100 mg PO TID 06/27/19 07/02/19 07/01/19 History 325 Lansoprazole Solutab [Prevacid 30 mg FEEDTUBE QDAY tab.rapdis 07/01/19 07/02/19 07/01/19 Rx Solutab] Lipase/Protease/Amylase [Pancreaze 1 each FEEDTUBE PRN PRN capsule 07/01/19 07/02/19 07/01/[address] 10,500 Unit] 1 Sennosides Tab [Senokot] 8.6 mg PO Q12H PRN tablet 07/01/19 07/02/19 07/01/19 Rx 8.6 Active Meds: Active Medications Acetaminophen (Tylenol) 650 mg PO Q6H PRN PRN Reason: Non Cardiac Pain or Temp>100.5 Albuterol (Proventil) 2.5 mg IH Q4HRT PRN PRN Reason: Shortness Of Breath Aspirin (Ecotrin) 325 mg PO QDAY [facility] Atorvastatin Calcium (Lipitor) 40 mg PO QHS [facility] Last Admin: 07/01/19 23:04 Dose: 40 mg Documented by: Bisacodyl (Dulcolax) [address] QDAY PRN PRN Reason: Constipation Clonidine HCl (Catapres) 0.3 mg PO Q8HR [facility] Last Admin: 07/02/19 05:46 Dose: 0.3 mg Documented by: Dextrose (D50w (25gm) Syringe) 50 ml IV PRN PRN PRN Reason: Hypoglycemia Ferrous Sulfate (Feosol) 325 mg PO QDAY [facility] Folic Acid (Folvite) 1 mg PO QDAY [facility] Heparin Sodium (Porcine) (Heparin) 5,000 unit SUB-Q Q8HR [facility] Last Admin: 07/02/19 05:47 Dose: 5,000 unit Documented by: Hydralazine HCl (Apresoline) 100 mg PO TID [facility] Hydralazine HCl (Apresoline) 10 mg IV Q4H PRN PRN Reason: Hypertension Insulin Human Lispro (Humalog) 0 unit SUB-Q [facility]; Protocol Last Admin: 07/01/19 23:28 Dose: 2 unit Documented by: Labetalol HCl (Normodyne) 300 mg PO BID [facility] Last Admin: 07/01/19 23:04 Dose: 300 mg Documented by: Nifedipine (Procardia Xl) 30 mg PO QDAY [facility] Ondansetron HCl (Zofran Odt) 4 mg PO Q8H PRN PRN Reason: Nausea And Vomiting Pantoprazole Sodium (Protonix) 20 mg PO QDAY [facility] Polyethylene Glycol (Miralax 3350) 17 gm PO QDAY PRN PRN Reason: Constipation Review of Systems All systems: negative (ROS negative for 12 systems except as noted below with pertinent positives and negatives.) Constitutional: fatigue, weakness Ears, nose, mouth and throat: no decreased hearing Cardiovascular: high blood pressure, no chest pain, no palpitations, no edema Respiratory: no cough, no shortness of breath Gastrointestinal: no abdominal pain, no nausea, no vomiting, no diarrhea, no constipation Musculoskeletal: limitation of motion, gait dysfunction Integumentary: no rash, no pruritis Neurological: parathesias, lack of coordination, change in speech, gait dysfunction, spasticity Psychiatric: no anxiety, no insomnia Exam - Exam Narrative exam: MUSCULOSKELETAL SPECIALTY EXAM CONSTITUTIONAL: Well developed, well nourished, appropriately groomed. RIGHT hand dominant. LYMPHATIC: No appreciable abnormalities palpable in neck RESPIRATORY: Clear to auscultation bilaterally, no increased work of breathing CARDIOVASCULAR: Regular Rate/ Rhythm, no swelling, edema or tenderness in BUE or BLE. Pulses palpable in all extremities. All extremities warm. GI: + bowel sounds, soft, NTTP, nondistended. INTEGUMENTARY: Normal, no lesion, rash, masses or bruising noted in extremities. Multiple IVs in right upper extremity MUSCULOSKELETAL: BUE and BLE normal without defect, crepitus, subluxation, effusion, arthritic changes or TTP. SA EF WE EE FF FA HF KE ADF EHL APF R 03/15 overall L 01/13 3/03 13/03 13/03 13/01/13 ROM decreased on left upper extremity Tone increased on left upper extremity however much less than previous NEURO: CN II : Visual farr full to confrontation CN II, III : PERRL CN III, IV, : EOMI CN V : Facial sensation intact CN VII : Left facial droop including eye CN VIII : Hearing intact to finger rustle CN IX, X : Palate/uvula elevate midline, phonation normal CN XI : Intact shoulder shrug and head rotation CN XII : Tongue protrudes midline Sensation intact in all extremities without extinction. Reflexes 2+ bilaterally at biceps, brachioradialis and patella with crossed adductor reflex present. No clonus at ankles. Coordination intact in RUE, decreased on LUE. No tremor noted in 4 extremities. Naming and repetition intact. Follows 2 step commands. Aphasia not appreciated Dysarthria not appreciated, slowed maris with speech with slight slurring occasionally the patient does state that she is a little drowsy Dysphagia not appreciated Neglect not appreciated POSTURE and GAIT: Sitting posture good. Balance appears reasonable seated. Patient was able to perform a stand pivot transfer with min to mod assist. Gait deferred until seen with therapy. PSYCH: Alert, oriented x3, affect appears flattened. Insight appears intact. - Constitutional Vitals: Vital Signs - 12hr 07/02/19 04:22 Temperature 36.4 C Pulse Rate 65 Respiratory 18 Rate Blood Pressure 177/71 O2 Sat by Pulse 100 Oximetry - Labs CBC & Chem 7: 07/02/19 06:43 07/02/19 06:43 Assessment and Plan Assessment and plan: Patient was assessed and evaluated for Acute Inpatient Rehab Unit. Due to the patients above-mentioned medical complexity, along with decreased functional mobility and self care, this patient continues to require and be appropriate for a comprehensive, multidisciplinary [id number] rehabilitation program. These needs cannot be met in an outpatient or other less intensive setting. The patient would continue to benefit from skilled therapy intervention for at least 3 hours per day, five days a week, with techniques specific to the needs of the patient to improve function, activities of daily living, and reintegration into the community. The patient continues to require: -- OT to improve ROM, self-care, and learn use of adaptive equipment -- PT to improve strength and balance, functional transfers, and ambulation with energy conservation techniques to improve functional mobility -- 24 hour RN to ensure and prevent skin breakdown, promote progressive independence while ensuring safety, ensure education regarding medications, and incorporation of the rehabilitation at the bedside -- 24 hour Naval Architect to coordinate this interdisciplinary program, and to manage/prevent complications as a result of the patients medical comorbidities. -Plan of care by day 4 -Weekly team conferences With such a program, there is a reasonable certainty that the goals individualized for this patient can be achieved within the specified length of stay. CVA with Left nondominant hemiplegia: discussed secondary stroke prevention and prognosis. continue medications and monitor for worsening neurologic condition. LUE spasticity: Stretching with OT, continue splinting. CKD with acute exacerbation: avoid nephrotoxic medications, monitor renal f unction, nephrology consult HTN: continue medications, adjust for normotension, nephrology consulted due to renal component. Q4h vitals. PRN coverage available. DM 2: continue SSI, monitor GLU. A1c was normal. Will likely d/c / reduce GLU monitoring Z73.6 ADL dysfunction: OT will work on improving ability to perform ADLs (including assistive devices) to increase independence and decrease caregiver burden and improve functional transfers and mobility training. R26.2 Difficulty walking: PT will work on gait training and proper use of assistive devices and advance as appropriate to use of stairs and outside ambulation on uneven surfaces. R26.81 Unsteadiness on feet: PT will work on improving static and dynamic sitting and standing balance as well as proper use of assistive devices to dec rease risk of falls. R26.89 Abnormality of gait: PT will work to improve safety and efficiency of ga it through neuromotor training and gait training along with instruction on proper use of assistive devices. M62.81 Muscle weakness: PT & OT will work on strengthening exercises to improve functional strength including mixture of closed and open kinetic chain exercises. R53.81 Debility: PT & OT will work on improving overall functional status to improve participation with ADLs, mobility and social involvement. R53.83 Fatigue: PT & OT will work on improving endurance through aerobic exercises and therapeutic activity while monitoring patients tolerance for activity and vital signs as needed. MS: monitor for any worsening symptoms DVT ppx: heparin Pain: Continue physical modalities in therapy and pain medications as needed to achieve functional pain control. Sleep: Monitor and address as needed. Bowel: Monitor and address as needed. PRN meds available Appetite: Monitor and address as needed. Discharge planning: Pending therapy progress and care plan meeting. Will continue discussion with therapy team, SW, patient and family. Restrictions/ Precautions: Falls WB status: FWB Functional Hx: ADLs: Independent Cognition: Independent Mobility: RW Barriers to Discharge: Decreased mobility and ability to perform self care, balance deficits, weakness, spasticity Estimated Length of Stay: 10-14 days Discharge Destination: Home with family POST ADMISSION PHYSICIAN EVALUATION I have examined the patient and find that functional status, medical condition and appropriateness for IRF admission are essentially unchanged from those described in the preadmission screening. Will monitor for worsening neurologic decline, spasticity, DVT/PE, bowel and bladder complications and complications due to renal function, HTN, DM, MS and electrolyte abnormalities. Will attempt to avoid occurrence of these issues or treat them if they present themselves.
[2019-07-02 07:24] LABS: Hematocrit 32.2 % (30.3-42.9); Hemoglobin 10.5 gm/dl (10.1-14.3); Mean Corpuscular HGB Conc 33 % (30-34); Mean Corpuscular Volume 81 fl (79-97); Platelet Count 213 K/mm3 (140-440); Red Blood Count 4.01 M/mm3 (3.65-5.03); Red Cell Distribution Width 19.9 % (13.2-15.2)
[2019-07-02 07:37] LABS: Calcium 9.4 mg/dL (8.4-10.2)
[2019-07-02] MEDS: HumaLOG SUB-Q SCH ×4 (07:58→23:30)
[2019-07-02] MEDS: NORMODYNE PO SCH ×2 (09:12→22:06)
[2019-07-02] MEDS: APRESOLINE PO SCH ×3 (09:13→22:06)
[2019-07-02] MEDS: FEOSOL PO SCH (09:13)
[2019-07-02] MEDS: FOLVITE PO SCH (09:14)
[2019-07-02] MEDS: ECOTRIN PO SCH (09:14)
[2019-07-02] MEDS: PROTONIX PO SCH (09:14)
[2019-07-02] MEDS: PROCARDIA XL PO SCH (09:14)
--- NOTE | 2019-07-02 15:59 | Progress Note ---
Assessment and Plan Assessment and plan: Patient is 49-year-old woman with a history of anemia, diabetes, heart failure, stroke, hypertension, COPD, CVA with left side deficit for which she was in [facility] rehabilitation unit from [facility], who was about to be discharge from discharge to the acute Inpatient unit for confusion and elevated blood pressure with systolic BP over 200, inability to talk which began on the weekend per Dr. Singh patient was admitted to the hospital and imaging study showed, Patient Small areas of subacute ischemia are identified in the head of the right caudate nucleus, left parietal white matter and left splenium of the corpus callosum. Patients meds were adjusted and then discharge back to Rehab. * MRI brain without contrast IMPRESSION: Small areas of subacute ischemia are identified in the head of the right caudate nucleus, left parietal white matter and left splenium of the corpus callosum as described. Volume loss. Advanced chronic white matter changes. Chronic focal infarcts in the right zavala radiata and inferior left cerebellum. -New Acute Left ischemic stroke Continue therapy as prescribed. Patient treated with ASA and statin -Hypertensive Restarted BB.and inaddition Clonidine, hydralazine and nifedipine -Acute metabolic Hypertensive encephalopathy: Improving as blood pressure comes down -CKD stage 4, unchanged, avoid nephrotoxins, nephrology consult -DM Type 2 as patient a1c is 4.9 last month, she has had normal a1c of < 6 since 2017, no need for insulins at this time -Anemia: Continue supportive care -Moderate protein malnutrition, Dietitian consult -Diastolic CHF by history; chronic with no acute excarbation -Dypshagia, continue current diet. No new complaints -Depression, stable and improved History Interval history: Patient seen and examined, sitting on wheel chair, and no new compliants. Hospitalist Physical - Physical exam Narrative exam: Narrative exam: Gen: chronically ill appearing, NAD, Awake, aphasia HEENT: NCAT, EOMI, PERRL, Neck: supple, no adenopathy, no thyromegaly, no JVD CVS/Heart: RRR, normal S1S2, pulses present bilaterally Chest/Lungs: CTA B, Symmetrical chest expansion, good air entry bilaterally GI/Abdomen: soft, NTND, good bowel sounds, no guarding or rebound /Bladder: no suprapubic tenderness, no CVA or paraspinal tenderness Extermity/Skin: no c/c/e, no obvious rash, spasticleft upper ext. Left hemiplegia. MSK: FROM x 3 Neuro: LEFT HEMIPLEGIA dysarthria Psych: calm - Constitutional Vitals: Temp Pulse Resp BP Pulse Ox 97.8 F 72 18 160/76 99 07/02/19 07:41 07/02/19 07:41 07/02/19 07:41 07/02/19 07:41 07/02/19 07:41 General appearance: Present: no acute distress Results - Labs CBC & Chem 7: 07/02/19 06:43 07/02/19 06:43 Labs: Laboratory Last Values WBC 2.7 K/mm3 (4.5-11.0) L 07/02/19 06:43 RBC 4.01 M/mm3 (3.65-5.03) 07/02/19 06:43 Hgb 10.5 gm/dl (10.1-14.3) 07/02/19 06:43 Hct 32.2 % (30.3-42.9) 07/02/19 06:43 MCV 81 fl (79-97) 07/02/19 06:43 MCH 26 pg (28-32) L 07/02/19 06:43 MCHC 33 % (30-34) 07/02/19 06:43 RDW 19.9 % (13.2-15.2) H 07/02/19 06:43 Plt Count 213 K/mm3 (140-440) 07/02/19 06:43 Sodium 137 mmol/L (137-145) 07/02/19 06:43 Potassium 4.6 mmol/L (3.6-5.0) 07/02/19 06:43 Chloride 99.9 mmol/L (98-107) 07/02/19 06:43 Carbon Dioxide 26 mmol/L (22-30) 07/02/19 06:43 16 mmol/L 07/02/19 06:43 BUN 42 mg/dL (7-17) H 07/02/19 06:43 3.2 mg/dL (0.7-1.2) H 07/02/19 06:43 Estimated GFR 19 ml/min 07/02/19 06:43 13 % 07/02/19 06:43 Glucose 196 mg/dL (65-100) H 07/02/19 06:43 POC Glucose 241 (70-105) H 07/02/19 12:12 Calcium 9.4 mg/dL (8.4-10.2) 07/02/19 06:43 Active Medications - Current Medications Current Medications: Generic Name Dose Route Start Last Admin Trade Name Freq PRN Reason Stop Dose Admin Acetaminophen 650 mg 07/01/19 20:15 Tylenol PO Q6H PRN Non Cardiac Pain or Temp>100.5 Albuterol 2.5 mg 07/01/19 20:16 Proventil IH Q4HRT PRN Shortness Of Breath Aspirin 325 mg 07/02/19 08:00 07/02/19 09:14 Ecotrin PO 325 mg QDAY CASPER Administration Atorvastatin Calcium 40 mg 07/01/19 21:00 07/01/19 23:04 Lipitor PO 40 mg QHS CASPER Administration Bisacodyl 10 mg 07/01/19 20:16 Dulcolax IN QDAY PRN Constipation Clonidine HCl 0.3 mg 07/01/19 22:00 07/02/19 05:46 Catapres PO 0.3 mg Q8HR CASPER Administration Dextrose 50 ml 07/01/19 20:02 D50w (25gm) Syringe IV PRN PRN Hypoglycemia Ferrous Sulfate 325 mg 07/02/19 08:00 07/02/19 09:13 Feosol PO 325 mg QDAY CASPER Administration Folic Acid 1 mg 07/02/19 08:00 07/02/19 09:14 Folvite PO 1 mg QDAY CASPER Administration Heparin Sodium (Porcine) 5,000 unit 07/01/19 22:00 07/02/19 05:47 Heparin SUB-Q 5,000 unit Q8HR CASPER Administration Hydralazine HCl 100 mg 07/02/19 08:00 07/02/19 09:13 Apresoline PO 100 mg TID CASPER Administration Hydralazine HCl 10 mg 07/01/19 20:16 Apresoline IV Q4H PRN Hypertension Insulin Human Lispro 0 unit 07/01/19 22:00 07/02/19 12:42 Humalog SUB-Q 2 unit ACHS CASPER Administration Protocol Labetalol HCl 300 mg 07/01/19 22:00 07/02/19 09:12 Normodyne PO 300 mg BID CASPER Administration Nifedipine 30 mg 07/02/19 08:00 07/02/19 09:14 Procardia Xl PO 30 mg QDAY CASPER Administration Ondansetron HCl 4 mg 07/01/19 20:16 Zofran Odt PO Q8H PRN Nausea And Vomiting Pantoprazole Sodium 20 mg 07/02/19 08:00 07/02/19 09:14 Protonix PO 20 mg QDAY CASPER Administration Polyethylene Glycol 17 gm 07/01/19 20:32 Miralax 3350 PO QDAY PRN Constipation
--- NOTE | 2019-07-02 18:58 | Progress Note ---
Assessment and Plan - Patient Problems (1) Chronic kidney disease, stage 4 (severe) Current Visit: Yes Status: Acute Plan to address problem: Kidney function about baseline. Follow-up electrolytes and renal function periodically (2) Heart failure with preserved ejection fraction Current Visit: No Status: Acute Plan to address problem: Continue medications (3) Hypertensive chronic kidney disease with stage 1 through stage 4 chronic kidney disease, or unspecified chronic kidney disease Current Visit: No Status: Acute Plan to address problem: Medications adjusted yesterday. Follow-up blood pressure and adjusted medications. (4) Type 2 diabetes mellitus with diabetic chronic kidney disease Current Visit: No Status: Chronic Plan to address problem: Blood sugar management by primary attending Subjective Date of service: 07/02/19 Principal diagnosis: stage IV chronic knee disease, hypertension Interval history: Patient seen lying in bed. She has no complaints. Back in acute rehabilitation unit. She is feeling better Objective - Exam Narrative Exam: Middle-age of tremor: Female lying in bed in no acute distress HEENT: NCAT, pink oral mucous membrane Neck: Supple, no venous distention CVS: S1S2 RRR with no murmur, rub or gallop Chest: Clear to auscultation Abdomen: Protuberant, soft, nontender, no organomegaly, bowel sounds are present Extremities: No edema Neuro: Awake, alert left hemiparesis - Vital Signs Vital signs: Vital Signs - 12hr 07/02/19 07:41 Temperature 97.8 F Pulse Rate 72 Respiratory 18 Rate Blood Pressure 160/76 [Left] O2 Sat by Pulse 99 Oximetry - Lab 07/02/19 06:43 07/02/19 06:43 Most recent lab results Calcium 9.4 mg/dL (8.4-10.2) 07/02/19 06:43 Medications & Allergies - Medications Allergies/Adverse Reactions: Allergies amlodipine besylate [From Norvasc] Allergy (Verified 01/21/14 20:31) Vomiting hydromorphone HCl [From Dilaudid] Allergy (Verified 01/21/14 20:31) Vomiting lisinopril Allergy (Verified 01/21/14 20:31) Unknown Home Medications: Home Medications Medication Instructions Recorded Confirmed Last Taken Type Acetaminophen [Acetaminophen TAB] 650 mg PO Q4H PRN 30 Days tablet 06/21/1907/01/19 Rx Aspirin EC 325 mg PO QDAY 30 Days tablet 06/21/19 07/02/19 07/01/19 Rx 325 AtorvaSTATin [Lipitor] 40 mg PO QHS 30 Days tablet 06/21/19 07/02/19 07/01/19 Rx 40 Ferrous Sulfate [Feosol 325 MG tab] 325 mg PO QDAY tablet 06/21/19 07/02/19 07/01/19 Rx 325 Folic Acid [Folvite] 1 mg PO QDAY tablet 06/21/19 07/02/19 07/01/19 Rx 1 Ondansetron [Zofran ODT TAB] 4 mg PO Q6H PRN 30 Days tab.rapdis 06/21/19 07/02/19 07/01/19 Rx 4 Clonidine HCl [Catapres] 0.3 mg PO BID 06/27/19 07/02/19 07/01/19 History 0.3 Insulin Glargine [Lantus] 5 units SQ QHS 06/27/19 07/02/19 07/01/19 History 2 Labetalol HCl [Labetalol 300mg TAB] 300 mg PO BID 06/27/19 07/02/19 07/01/19 History 300 hydrALAZINE [Apresoline TAB] 100 mg PO TID 06/27/19 07/02/19 07/01/19 History 325 Lansoprazole Solutab [Prevacid 30 mg FEEDTUBE QDAY tab.rapdis 07/01/19 07/02/19 07/01/19 Rx Solutab] Lipase/Protease/Amylase [Pancreaze 1 each FEEDTUBE PRN PRN capsule 07/01/19 07/02/19 07/01/19 Rx 10,500 Unit] 1 Sennosides Tab [Senokot] 8.6 mg PO Q12H PRN tablet 07/01/19 07/02/19 07/01/19 Rx 8.6 Active Medications: Generic Name Dose Route Start Last Admin Trade Name Freq PRN Reason Stop Dose Admin Acetaminophen 650 mg 07/01/19 20:15 Tylenol PO Q6H PRN Non Cardiac Pain or Temp>100.5 Albuterol 2.5 mg 07/01/19 20:16 Proventil IH Q4HRT PRN Shortness Of Breath Aspirin 325 mg 07/02/19 08:00 07/02/19 09:14 Ecotrin PO 325 mg QDAY CASPER Administration Atorvastatin Calcium 40 mg 07/01/19 21:00 07/01/19 23:04 Lipitor PO 40 mg QHS CASPER Administration Bisacodyl 10 mg 07/01/19 20:16 Dulcolax RI QDAY PRN Constipation Clonidine HCl 0.3 mg 07/01/19 22:00 07/02/19 14:34 Catapres PO 0.3 mg Q8HR CASPER Administration Dextrose 50 ml 07/01/19 20:02 D50w (25gm) Syringe IV PRN PRN Hypoglycemia Ferrous Sulfate 325 mg 07/02/19 08:00 07/02/19 09:13 Feosol PO 325 mg QDAY CASPER Administration Folic Acid 1 mg 07/02/19 08:00 07/02/19 09:14 Folvite PO 1 mg QDAY CASPER Administration Heparin Sodium (Porcine) 5,000 unit 07/01/19 22:00 07/02/19 14:36 Heparin SUB-Q 5,000 unit Q8HR CASPER Administration Hydralazine HCl 100 mg 07/02/19 08:00 07/02/19 14:35 Apresoline PO 100 mg TID CASPER Administration Hydralazine HCl 10 mg 07/01/19 20:16 Apresoline IV Q4H PRN Hypertension Insulin Human Lispro 0 unit 07/01/19 22:00 07/02/19 16:51 Humalog SUB-Q 3 unit ACHS CASPER Administration Protocol Labetalol HCl 300 mg 07/01/19 22:00 07/02/19 09:12 Normodyne PO 300 mg BID CASPER Administration Nifedipine 30 mg 07/02/19 08:00 07/02/19 09:14 Procardia Xl PO 30 mg QDAY CASPER Administration Ondansetron HCl 4 mg 07/01/19 20:16 Zofran Odt PO Q8H PRN Nausea And Vomiting Pantoprazole Sodium 20 mg 07/02/19 08:00 07/02/19 09:14 Protonix PO 20 mg QDAY CASPER Administration Polyethylene Glycol 17 gm 07/01/19 20:32 Miralax 3350 PO QDAY PRN Constipation
[2019-07-03] MEDS: CATAPRES PO SCH ×3 (05:50→23:47)
[2019-07-03] MEDS: HEPARIN SUB-Q SCH ×3 (05:50→23:43)
[2019-07-03 06:34] LABS: Hematocrit 30.7 % (30.3-42.9); Hemoglobin 9.8 gm/dl (10.1-14.3); Mean Corpuscular HGB Conc 32 % (30-34); Mean Corpuscular Volume 81 fl (79-97); Platelet Count 219 K/mm3 (140-440); Red Blood Count 3.78 M/mm3 (3.65-5.03); Red Cell Distribution Width 19.5 % (13.2-15.2)
[2019-07-03 06:48] LABS: Calcium 9.2 mg/dL (8.4-10.2)
[2019-07-03] MEDS: HumaLOG SUB-Q SCH ×4 (07:33→23:59)
[2019-07-03] MEDS: ECOTRIN PO SCH (09:35)
[2019-07-03] MEDS: NORMODYNE PO SCH ×2 (09:35→23:48)
[2019-07-03] MEDS: PROCARDIA XL PO SCH (09:35)
[2019-07-03] MEDS: FEOSOL PO SCH (09:35)
[2019-07-03] MEDS: PROTONIX PO SCH (09:37)
[2019-07-03] MEDS: APRESOLINE PO SCH ×3 (09:37→23:46)
[2019-07-03] MEDS: FOLVITE PO SCH (09:37)
--- NOTE | 2019-07-03 12:46 | Progress Note ---
Subjective Date of service: 07/03/19 Principal diagnosis: CVA Interval history: 49-year-old female admitted to outside hospital with shortness of breath and dyspnea on exertion. She is found to have a CHF exacerbation and hypertensive urgency with blood pressure 211/104. Cardiology and nephrology consults were placed. Lasix was discontinued due to elevated creatinine and should be restarted once creatinine is less than 3. Patient's baseline creatinine is 2.1- 2.2. Fluid restriction was started at 15 mL per day. Clonidine and hydralazine were both discontinued patient was continued on labetalol and verapamil. She had to iron infusions. Uncertain why patient was taken off of statin but per patient and her PCP advised not to take it. She does have a history of CVA but was only on aspirin. States statin was stopped by [employer] due to pain in left shoulder which was more likely due to tone. Statin was restarted at outside Hospital. We'll discuss secondary stroke prevention with patient made sure that she and family understand her need to continue with the statin. Patient also bernardo s a history of relapsing remitting multiple sclerosis but has not had a flair in 3 years. States she has falls about once a week. Patient is known to the service and was recently discharged to the acute care side of the hospital due to altered mental status, hypertensive emergency and ultimately CVA. Patient is participating in therapy and making reasonable progress. Taking rest breaks as needed. -BM. Denies pain, palpitations, dyspnea, cough, N/V or joint pain. States she is depressed today due to anniversary of mother's . LUE has less tone than before. BP has been reasonably controlled without spikes to 190. Looking to reduce to at least SBP <140 if possible. All records, vitals, labs and medications were reviewed. No other issues per patient, nursing or therapy. Objective - Exam Narrative Exam: MUSCULOSKELETAL SPECIALTY EXAM CONSTITUTIONAL: Well developed, well nourished, appropriately groomed. RIGHT hand dominant. RESPIRATORY: Clear to auscultation bilaterally, no increased work of breathing CARDIOVASCULAR: Regular Rate/ Rhythm, no swelling, edema or tenderness in BUE or BLE. All extr emities warm. GI: + bowel sounds, soft, NTTP, nondistended. INTEGUMENTARY: Normal, no lesion, rash, masses or bruising noted in extremities. MUSCULOSKELETAL: BUE and BLE normal without defect, crepitus, subluxation, effusion, arthritic changes or TTP. SA EF WE EE FF FA HF KE ADF EHL APF R 03/15 overall L 3/5 3/5 3/5 3/ 3/ 3/ 4/ 4/ 4/02/13 ROM decreased on left upper extremity Tone increased on left upper extremity however much less than previous NEURO: Left facial droop including eye Sensation intact in all extremities without extinction. No tremor noted in 4 extremities. Follows 2 step commands. Aphasia not appreciated Dysarthria not appreciated, slowed maris with speech with slight slurring occasionally the patient does state that she is a little drowsy again today Dysphagia not appreciated Neglect not appreciated POSTURE and GAIT: Sitting posture good. Balance appears reasonable seated. Patient was able to perform a stand pivot transfer with min to mod assist. Gait deferred until seen with therapy. PSYCH: Alert, oriented x3, affect appears flattened. Insight appears intact. - Constitutional Vitals: Vital Signs - 12hr 07/03/19 07/03/19 05:01 08:33 Temperature 37.4 C 36.6 C Pulse Rate 78 77 Respiratory 20 18 Rate Blood Pressure 153/77 Blood Pressure 156/73 [Left] O2 Sat by Pulse 99 99 Oximetry - Allied health notes Allied health notes reviewed: nursing, PT, OT FIMS assessment as documented by PT/OT/ST: Grooming Patient cleans teeth/dentures: Yes Patient young/brushes hair: No Patient washes, rinses and Yes dries face: Patient washes, rinses and Yes dries hands: Patient applies make-up: No Patient performs (no make-up/ 3/4 (75%) shaving): Grooming FIM Score 5. Supervision ([place] applies toothpaste or opens containers.) Toileting Toileting Device Commode over Toilet Patient able to: Adjust clothes before,Clean self,Adjust clothes after Patient able to perform: 3/3 (100%) Toileting FIM Score 4. Minimal Assistance (Patient = 75% or more. Needs touching.) Social interaction/Memory/Problem solving Social Interaction FIM Score 5. Supervision (Needs supv. <10%. Needs encouragement to participate.) Memory FIM Score 5. Supervision (Needs cueing <10%, stressful/ unfamiliar situations.) Problem Solving FIM Score 4. Minimal Assistance (Solves routine problems 75-90%.) Transfers Mode of Locomotion: Walking Bed/Chair/Wheelchair Transfers 4. Minimal Assistance (Patient = 75% or more. FIM Score Needs touching.) Toilet Transfers FIM Score 4. Minimal Assistance (Patient = 75% or more. Needs touching.) Patient transferred to: Shower Shower Transfers FIM Score 4. Minimal Assistance (Patient = 75% or more. Needs touching.) Locomotion- Stairs Device used on Stairs Handrail/s Number of Stairs Ascended/ 8 Descended Patient used handrail/support: Yes Stairs FIM Score 2. Maximal Assistance (Patient = 25% or more, 4- 6 stairs.) Locomotion- walk/wheelchair Most Frequent Mode of Walking Locomotion: Ambulation Distance 10 Walking FIM Score 2. Maximal Assistance (Patient = 25% or more. Minimum of 50 ft.) Wheelchair Propulsion Distance 70 Wheelchair FIM Score 2. Maximal Assistance (Patient = 25% or more. Minimum of 50 ft.) Eating Eating FIM Score 5. Supervision/Set-Up (Needs help w/ containers, cutting meat, etc.) Dressing-Upper body Patient retrieves clothing Yes items: Patient applies/removes UE No prosthesis or orthosis: Upper Body Dressing FIM Score 4. Minimal Assistance (Patient = 75% or more. Needs touching.) Dressing-lower body Patient retrieves clothing Yes items: Patient applies/removes LE No prosthesis or orthosis: Lower Body Dressing FIM Score 3. Moderate Assistance (Patient = 50% or more) - Labs CBC & Chem 7: 07/03/19 05:53 07/03/19 05:53 Labs: Laboratory Results - last 72 hr 07/02/19 07/02/19 07/02/19 06:43 06:43 08:12 WBC 2.7 L RBC 4.01 Hgb 10.5 Hct 32.2 MCV 81 MCH 26 L MCHC 33 RDW 19.9 H Plt Count 213 Sodium 137 Potassium 4.6 Chloride 99.9 Carbon Dioxide 26 Anion Gap 16 BUN 42 H Creatinine 3.2 H Estimated GFR 19 BUN/Creatinine Ratio 13 Glucose 196 H POC Glucose 199 H Calcium 9.4 07/02/19 07/02/19 07/02/19 12:12 17:38 21:02 WBC RBC Hgb Hct MCV MCH MCHC RDW Plt Count Sodium Potassium Chloride Carbon Dioxide Anion Gap BUN Creatinine Estimated GFR BUN/Creatinine Ratio Glucose POC Glucose 241 H 291 H 196 H Calcium 07/03/19 07/03/19 07/03/19 05:53 05:53 07:50 WBC 3.1 L RBC 3.78 Hgb 9.8 L Hct 30.7 MCV 81 MCH 26 L MCHC 32 RDW 19.5 H Plt Count 219 Sodium 140 Potassium 4.4 Chloride 101.5 Carbon Dioxide 23 Anion Gap 20 BUN 44 H Creatinine 3.5 H Estimated GFR 17 BUN/Creatinine Ratio 13 Glucose 128 H POC Glucose 147 H Calcium 9.2 07/03/19 11:49 WBC RBC Hgb Hct MCV MCH MCHC RDW Plt Count Sodium Potassium Chloride Carbon Dioxide Anion Gap BUN Creatinine Estimated GFR BUN/Creatinine Ratio Glucose POC Glucose 221 H Calcium Assessment and Plan CVA with Left nondominant hemiplegia: discussed secondary stroke prevention and prognosis. continue medications and monitor for worsening neurologic condition. LUE spasticity: Stretching with OT, continue splinting. CKD with acute exacerbation: avoid nephrotoxic medications, monitor renal function, nephrology consult HTN: continue medications, adjust for normotension, nephrology consulted due to renal component. Q4h vitals. PRN coverage available. DM 2: continue SSI, monitor GLU. A1c was normal. Planned to reduce GLU monitoring based on A1c but she has been running mid to high 200s. Will continue SSI Z73.6 ADL dysfunction: OT will work on improving ability to perform ADLs (including assistive devices) to increase independence and decrease caregiver burden and improve functional transfers and mobility training. R26.2 Difficulty walking: PT will work on gait training and proper use of assistive devices and advance as appropriate to use of stairs and outside ambulation on uneven surfaces. R26.81 Unsteadiness on feet: PT will work on improving static and dynamic sitting and standing balance as well as proper use of assistive devices to decrease risk of falls. R26.89 Abnormality of gait: PT will work to improve safety and efficiency of gait through neuromotor training and gait training along with instruction on proper use of assistive devices. M62.81 Muscle weakness: PT & OT will work on strengthening exercises to improve functional strength including mixture of closed and open kinetic chain exercises. R53.81 Debility: PT & OT will work on improving overall functional status to improve participation with ADLs, mobility and social involvement. R53.83 Fatigue: PT & OT will work on improving endurance through aerobic exercises and therapeutic activity while monitoring patients tolerance for activity and vital signs as needed. MS: monitor for any worsening symptoms DVT ppx: heparin Pain: Continue physical modalities in therapy and pain medications as needed to achieve functional pain control. Sleep: Monitor and address as needed. Bowel: Monitor and address as needed. PRN meds available Appetite: Monitor and address as needed. Discharge planning: Pending therapy progress and care plan meeting. Will continue discussion with therapy team, SW, patient and family. Restrictions/ Precautions: Falls WB status: FWB Functional Hx: ADLs: Independent Cognition: Independent Mobility: RW Barriers to Discharge: Decreased mobility and ability to perform self care, balance deficits, weakness, spasticity Estimated Length of Stay: 10-14 days Discharge Destination: Home with family, will need some assistance at home.
--- NOTE | 2019-07-03 15:20 | Progress Note ---
Assessment and Plan Assessment and plan: Patient is 49-year-old woman with a history of anemia, diabetes, heart failure, stroke, hypertension, COPD, CVA with left side deficit for which she was in [facility] rehabilitation unit from [facility], who was about to be discharge from discharge to the acute Inpatient unit for confusion and elevated blood pressure with systolic BP over 200, inability to talk which began on the weekend per Dr. Singh patient was admitted to the hospital and imaging study showed, Patient Small areas of subacute ischemia are identified in the head of the right caudate nucleus, left parietal white matter and left splenium of the corpus callosum. Patients meds were adjusted and then discharge back to Rehab. * MRI brain without contrast IMPRESSION: Small areas of subacute ischemia are identified in the head of the right caudate nucleus, left parietal white matter and left splenium of the corpus callosum as described. Volume loss. Advanced chronic white matter changes. Chronic focal infarcts in the right zavala radiata and inferior left cerebellum. -New Acute Left ischemic stroke Continue therapy as prescribed. Patient treated with ASA and statin -Hypertensive Restarted BB.and inaddition Clonidine, hydralazine and nifedipine -Acute metabolic Hypertensive encephalopathy: Improving as blood pressure comes down -CKD stage 4, unchanged, avoid nephrotoxins, nephrology consult -DM Type 2 as patient a1c is 4.9 last month, she has had normal a1c of < 6 since 2017, no need for insulins at this time -Anemia: Continue supportive care -Moderate protein malnutrition, Dietitian consult -Diastolic CHF by history; chronic with no acute excarbation -Dypshagia, continue current diet. No new complaints -Depression, stable and improved History Interval history: Patient seen and examined, no adverse event reported overnight and no new complaints. Hospitalist Physical - Physical exam Narrative exam: Gen: chronically ill appearing, NAD, Awake, aphasia HEENT: NCAT, EOMI, PERRL, Neck: supple, no adenopathy, no thyromegaly, no JVD CVS/Heart: RRR, normal S1S2, pulses present bilaterally Chest/Lungs: CTA B, Symmetrical chest expansion, good air entry bilaterally GI/Abdomen: soft, NTND, good bowel sounds, no guarding or rebound /Bladder: no suprapubic tenderness, no CVA or paraspinal tenderness Extermity/Skin: no c/c/e, no obvious rash, spastic left upper ext. Left hemiplegia. MSK: FROM x 3 Neuro: LEFT HEMIPLEGIA dysarthria Psych: calm - Constitutional Vitals: Temp Pulse Resp BP Pulse Ox 97.9 F 77 18 156/73 99 07/03/19 08:33 07/03/19 08:33 07/03/19 08:33 07/03/19 08:33 07/03/19 08:33 General appearance: Present: no acute distress Results - Labs CBC & Chem 7: 07/03/19 05:53 07/03/19 05:53 Labs: Laboratory Last Values WBC 3.1 K/mm3 (4.5-11.0) L 07/03/19 05:53 RBC 3.78 M/mm3 (3.65-5.03) 07/03/19 05:53 Hgb 9.8 gm/dl (10.1-14.3) L 07/03/19 05:53 Hct 30.7 % (30.3-42.9) 07/03/19 05:53 MCV 81 fl (79-97) 07/03/19 05:53 MCH 26 pg (28-32) L 07/03/19 05:53 MCHC 32 % (30-34) 07/03/19 05:53 RDW 19.5 % (13.2-15.2) H 07/03/19 05:53 Plt Count 219 K/mm3 (140-440) 07/03/19 05:53 Sodium 140 mmol/L (137-145) 07/03/19 05:53 Potassium 4.4 mmol/L (3.6-5.0) 07/03/19 05:53 Chloride 101.5 mmol/L (98-107) 07/03/19 05:53 Carbon Dioxide 23 mmol/L (22-30) 07/03/19 05:53 20 mmol/L 07/03/19 05:53 BUN 44 mg/dL (7-17) H 07/03/19 05:53 3.5 mg/dL (0.7-1.2) H 07/03/19 05:53 Estimated GFR 17 ml/min 07/03/19 05:53 13 % 07/03/19 05:53 Glucose 128 mg/dL (65-100) H 07/03/19 05:53 POC Glucose 221 (70-105) H 07/03/19 11:49 Calcium 9.2 mg/dL (8.4-10.2) 07/03/19 05:53 Active Medications - Current Medications Current Medications: Generic Name Dose Route Start Last Admin Trade Name Freq PRN Reason Stop Dose Admin Acetaminophen 650 mg 07/01/19 20:15 Tylenol PO Q6H PRN Non Cardiac Pain or Temp>100.5 Albuterol 2.5 mg 07/01/19 20:16 Proventil IH Q4HRT PRN Shortness Of Breath Aspirin 325 mg 07/02/19 08:00 07/03/19 09:35 Ecotrin PO 325 mg QDAY CASPER Administration Atorvastatin Calcium 40 mg 07/01/19 21:00 07/02/19 22:07 Lipitor PO 40 mg QHS CASPER Administration Bisacodyl 10 mg 07/01/19 20:16 Dulcolax [place] QDAY PRN Constipation Clonidine HCl 0.3 mg 07/01/19 22:00 07/03/19 13:06 Catapres PO 0.3 mg Q8HR CASPER Administration Dextrose 50 ml 07/01/19 20:02 D50w (25gm) Syringe IV PRN PRN Hypoglycemia Ferrous Sulfate 325 mg 07/02/19 08:00 07/03/19 09:35 Feosol PO 325 mg QDAY CASPER Administration Folic Acid 1 mg 07/02/19 08:00 07/03/19 09:37 Folvite PO 1 mg QDAY CASPER Administration Heparin Sodium (Porcine) 5,000 unit 07/01/19 22:00 07/03/19 13:32 Heparin SUB-Q 5,000 unit Q8HR CASPER Administration Hydralazine HCl 100 mg 07/02/19 08:00 07/03/19 13:06 Apresoline PO 100 mg TID CASPER Administration Hydralazine HCl 10 mg 07/01/19 20:16 Apresoline IV Q4H PRN Hypertension Insulin Human Lispro 0 unit 07/01/19 22:00 07/03/19 13:17 Humalog SUB-Q 2 unit ACHS CASPER Administration Protocol Labetalol HCl 300 mg 07/01/19 22:00 07/03/19 09:35 Normodyne PO 300 mg BID CASPER Administration Nifedipine 30 mg 07/02/19 08:00 07/03/19 09:35 Procardia Xl PO 30 mg QDAY CASPER Administration Ondansetron HCl 4 mg 07/01/19 20:16 Zofran Odt PO Q8H PRN Nausea And Vomiting Pantoprazole Sodium 20 mg 07/02/19 08:00 07/03/19 09:37 Protonix PO 20 mg QDAY CASPER Administration Polyethylene Glycol 17 gm 07/01/19 20:32 Miralax 3350 PO QDAY PRN Constipation
--- NOTE | 2019-07-03 16:43 | Progress Note ---
Assessment and Plan - Patient Problems (1) Chronic kidney disease, stage 4 (severe) Current Visit: Yes Status: Acute Plan to address problem: Kidney function about baseline. Follow-up electrolytes and renal function periodically (2) Heart failure with preserved ejection fraction Current Visit: No Status: Acute Plan to address problem: Continue medications (3) Hypertensive chronic kidney disease with stage 1 through stage 4 chronic kidney disease, or unspecified chronic kidney disease Current Visit: No Status: Acute Plan to address problem: Medications adjusted 2 days ago. Follow-up blood pressure and adjusted medications. (4) Type 2 diabetes mellitus with diabetic chronic kidney disease Current Visit: No Status: Chronic Plan to address problem: Blood sugar management by primary attending Subjective Date of service: 07/03/19 Principal diagnosis: CVA Interval history: Patient seen lying in bed. She has no complaints. She worked with physical therapy earlier. Did well. She is feeling better Objective - Exam Narrative Exam: Middle-age of tremor: Female lying in bed in no acute distress HEENT: NCAT, pink oral mucous membrane Neck: Supple, no venous distention CVS: S1S2 RRR with no murmur, rub or gallop Chest: Clear to auscultation Abdomen: Protuberant, soft, nontender, no organomegaly, bowel sounds are present Extremities: No edema Neuro: Awake, alert left hemiparesis - Vital Signs Vital signs: Vital Signs - 12hr 07/03/19 07/03/19 05:01 08:33 Temperature 99.4 F 97.9 F Pulse Rate 78 77 Respiratory 20 18 Rate Blood Pressure 153/77 Blood Pressure 156/73 [Left] O2 Sat by Pulse 99 99 Oximetry - Lab 07/03/19 05:53 07/03/19 05:53 Most recent lab results Calcium 9.2 mg/dL (8.4-10.2) 07/03/19 05:53 Medications & Allergies - Medications Allergies/Adverse Reactions: Allergies amlodipine besylate [From Norvasc] Allergy (Verified 01/21/14 20:31) Vomiting hydromorphone HCl [From Dilaudid] Allergy (Verified 01/21/14 20:31) Vomiting lisinopril Allergy (Verified 01/21/14 20:31) Unknown Home Medications: Home Medications Medication Instructions Recorded Confirmed Last Taken Type Acetaminophen [Acetaminophen TAB] 650 mg PO Q4H PRN 30 Days tablet 08/09/2907/02/19 07/01/19 Rx Aspirin EC 325 mg PO QDAY 30 Days tablet 06/21/19 07/02/19 07/01/19 Rx 325 AtorvaSTATin [Lipitor] 40 mg PO QHS 30 Days tablet 06/21/19 07/02/19 07/01/19 Rx 40 Ferrous Sulfate [Feosol 325 MG tab] 325 mg PO QDAY tablet 06/21/19 07/02/19 07/01/19 Rx 325 Folic Acid [Folvite] 1 mg PO QDAY tablet 06/21/19 07/02/19 07/01/19 Rx 1 Ondansetron [Zofran ODT TAB] 4 mg PO Q6H PRN 30 Days tab.rapdis 06/21/19 07/02/19 07/01/19 Rx 4 Clonidine HCl [Catapres] 0.3 mg PO BID 06/27/19 07/02/19 07/01/19 History 0.3 Insulin Glargine [Lantus] 5 units SQ QHS 06/27/19 07/02/19 07/01/19 History 2 Labetalol HCl [Labetalol 300mg TAB] 300 mg PO BID 06/27/19 07/02/19 07/01/19 History 300 hydrALAZINE [Apresoline TAB] 100 mg PO TID 06/27/19 07/02/19 07/01/19 History 325 Lansoprazole Solutab [Prevacid 30 mg FEEDTUBE QDAY tab.rapdis 07/01/19 07/02/19 07/01/19 Rx Solutab] Lipase/Protease/Amylase [Pancreaze 1 each FEEDTUBE PRN PRN capsule 07/01/19 07/02/19 07/01/[address] 10,500 Unit] 1 Sennosides Tab [Senokot] 8.6 mg PO Q12H PRN tablet 07/01/19 07/02/19 07/01/19 Rx 8.6 Active Medications: Generic Name Dose Route Start Last Admin Trade Name Freq PRN Reason Stop Dose Admin Acetaminophen 650 mg 07/01/19 20:15 Tylenol PO Q6H PRN Non Cardiac Pain or Temp>100.5 Albuterol 2.5 mg 07/01/19 20:16 Proventil IH Q4HRT PRN Shortness Of Breath Aspirin 325 mg 07/02/19 08:00 07/03/19 09:35 Ecotrin PO 325 mg QDAY CASPER Administration Atorvastatin Calcium 40 mg 07/01/19 21:00 07/02/19 22:07 Lipitor PO 40 mg QHS CASPER Administration Bisacodyl 10 mg 07/01/19 20:16 Dulcolax [place] QDAY PRN Constipation Clonidine HCl 0.3 mg 07/01/19 22:00 07/03/19 13:06 Catapres PO 0.3 mg Q8HR CASPER Administration Dextrose 50 ml 07/01/19 20:02 D50w (25gm) Syringe IV PRN PRN Hypoglycemia Ferrous Sulfate 325 mg 07/02/19 08:00 07/03/19 09:35 Feosol PO 325 mg QDAY CASPER Administration Folic Acid 1 mg 07/02/19 08:00 07/03/19 09:37 Folvite PO 1 mg QDAY CASPER Administration Heparin Sodium (Porcine) 5,000 unit 07/01/19 22:00 07/03/19 13:32 Heparin SUB-Q 5,000 unit Q8HR CASPER Administration Hydralazine HCl 100 mg 07/02/19 08:00 07/03/19 13:06 Apresoline PO 100 mg TID CASPER Administration Hydralazine HCl 10 mg 07/01/19 20:16 Apresoline IV Q4H PRN Hypertension Insulin Human Lispro 0 unit 07/01/19 22:00 07/03/19 13:17 Humalog SUB-Q 2 unit ACHS CASPER Administration Protocol Labetalol HCl 300 mg 07/01/19 22:00 07/03/19 09:35 Normodyne PO 300 mg BID CASPER Administration Nifedipine 30 mg 07/02/19 08:00 07/03/19 09:35 Procardia Xl PO 30 mg QDAY CASPER Administration Ondansetron HCl 4 mg 07/01/19 20:16 Zofran Odt PO Q8H PRN Nausea And Vomiting Pantoprazole Sodium 20 mg 07/02/19 08:00 07/03/19 09:37 Protonix PO 20 mg QDAY CASPER Administration Polyethylene Glycol 17 gm 07/01/19 20:32 Miralax 3350 PO QDAY PRN Constipation
--- NOTE | 2019-07-03 21:12 | IRU Plan of Care ---
Interdisciplinary Plan of Care - IPOC IRU INTERDISCIPLINARY PLAN: [facility] Inpatient Rehab Unit Plan of Care IRU Interdisciplinary Care Plan Start: 07/01/19 21:04 Freq: Admission then PRN Status: Active Protocol: Document 07/03/19 16:41 TH (Rec: 07/03/19 16:44 TH [id number]) Interdisciplinary Problem List Interdisciplinary Problem List Interdisciplinary Problem List Impaired Dressing,Impaired Query Text:Answers will Trigger Problems Mobility,Impaired Transfers, and Outcomes on Worklist. Impaired Toileting,Knowledge Deficits,Discharge Concerns, Impaired Safety,Diabetes Education,Impaired Cardiovascular System IRU Interdisciplinary Care Plan Therapy Services Therapy Services Will Include: Physical Therapy,Occupational Query Text:Patient will be seen for a Therapy minimum of 3 hours of daily therapy 5 out of 7 days a week. Therapy intensity may be adjusted within a 7 consecutive day period to effectively serve the individual needs of the patient. Treatment Frequency/Intensity/Duration Treatment Frequency 5 days per week Treatment Intensity 3 hours per day Treatment Duration 10-14 days Problem Area: Eating/Swallowing Eating/Swallowing Outcomes Eating/Swallowing Interventions Problem Area: Bathing/Grooming Bathing/Grooming Outcomes Bathing/Grooming Interventions Problem Area: Dressing Dressing Outcomes Dressing Interventions Problem Area: Mobility Mobility Outcomes Improve [place] w/ Bed Mobility,Improve [place] w/ Ambulation,Improve [place] w/ Stairs/Curb, Improve [place] w/ Wheelchair Mobility Interventions Therapeutic Exercise, Neuromuscular Re-Ed.,Activity Tolerance Work,Modalities,Use of Assistive Devices,Patient/ Caregiver Education,Bed Mobility Work,Gait Training, Household Mobility Work,W/C Mobility Work Problem Area: Transfers Transfers Outcomes Improve [place] w/ Bed Transfers,Improve [place] w/ Car Transfers Transfers Interventions Transfer Training,Therapeutic Exercise,Neuromuscular Re- Education,Activity Tolerance Work,Use of Assistive Devices, Patient/Caregiver Education Problem Area: Bowel/Bladder Managment Bowel/Bladder Outcomes Bowel/Bladder Interventions Problem Area: Toileting Toileting Outcomes Toileting Interventions Problem Area: Nutrition Nutrition Outcomes Nutrition Interventions Problem Area: Comprehension Comprehension Outcomes Comprehension Interventions Problem Area: Expression Expression Outcomes Expression Interventions Problem Area: Problem Solving Problem Solving Outcomes Problem Solving Interventions Problem Area: Memory Memory Outcomes Memory Interventions Problem Area: Pain Management Pain Management Outcomes Pain Management Interventions Problem Area: Knowledge Deficits Knowledge Deficits Outcomes Knowledge Deficits Interventions Problem Area: Skin/Tissue Integrity Skin/Tissue Integrity Outcomes Skin/Tissue Integrity Interventions Problem Area: Social Interaction Social Interaction Outcomes Social Interaction Interventions Problem Area: Adjustment to Disability Adjustment to Disability Outcomes Adjustment to Disability Interventions Problem Area: Discharge Concerns Discharge Concerns Outcomes Discharge w/ Necessary Equipment,Have Home Health/ Outpatient Services Discharge Concerns Interventions Discharge Planning,Family/ Caregiver Training Problem Area: Community Reintegration Community Reintegration Outcomes Community Reintegration Interventions Problem Area: Home Management Home Management Outcomes Home Management Interventions Problem Area: Safety Safety Outcomes Safety Interventions Problem Area: Medication Education Medication Education Outcomes Medication Education Interventions Problem Area: Diabetes Education Diabetes Education Outcomes Demonstrate Knowledge of Resources Availlable in Diabetic Ed. Folder Diabetes Education Interventions Give Pt. Diabetes Education Folder,Review Instruction on Making Appointment for Outpatient Program Problem Area: Oxygenation Oxygenation Outcomes Oxygenation Interventions Problem Area: Cardiovascular Cardiovascular Outcomes Maintain or Improve Cardiovascular Status Cardiovascular Interventions Assess Vital Signs at least Every 4 hours Physician Only Medical Prognosis and Rehabilitation Fair medical prognosis considering Recurrent CVA, CKD, HTN and MS. Will continue to maintain BP in acceptable range. Good rehab potential. She has already recovered ability to swallow and speech has improved. Walking. Decreased tone in LUE compared to previous stay. Potential (Completed by Physician) This plan of care has been developed based on the findings from the pre- admission assessment, post admission physician evaluation, information gathered from the assessments from all therapy disciplines and other pertinent clinicians. The plan of care has been reviewed and discussed in collaboration with the interdisciplinary team. The plan of care will be reviewed and updated at least weekly.
[2019-07-04] MEDS: CATAPRES PO SCH ×6 (06:53→22:00)
[2019-07-04] MEDS: HEPARIN SUB-Q SCH ×3 (06:55→23:12)
[2019-07-04 07:19] LABS: Hematocrit 33.8 % (30.3-42.9); Mean Corpuscular HGB Conc 33 % (30-34); Mean Corpuscular Volume 80 fl (79-97); Platelet Count 227 K/mm3 (140-440)
[2019-07-04 07:28] LABS: Calcium 9.4 mg/dL (8.4-10.2)
[2019-07-04] MEDS: ECOTRIN PO SCH (08:59)
[2019-07-04] MEDS: PROTONIX PO SCH (08:59)
[2019-07-04] MEDS: FEOSOL PO SCH (08:59)
[2019-07-04] MEDS: PROCARDIA XL PO SCH (08:59)
[2019-07-04] MEDS: NORMODYNE PO SCH ×2 (08:59→23:11)
[2019-07-04] MEDS: APRESOLINE PO SCH ×3 (09:00→20:26)
[2019-07-04] MEDS: FOLVITE PO SCH (09:00)
[2019-07-04] MEDS: HumaLOG SUB-Q SCH ×4 (09:02→22:00)
--- NOTE | 2019-07-04 11:07 | Progress Note ---
Assessment and Plan - Patient Problems (1) Chronic kidney disease, stage 4 (severe) Current Visit: Yes Status: Acute Plan to address problem: Kidney function about baseline. Follow-up electrolytes and renal function periodically (2) Heart failure with preserved ejection fraction Current Visit: No Status: Acute Plan to address problem: Continue medications (3) Hypertensive chronic kidney disease with stage 1 through stage 4 chronic kidney disease, or unspecified chronic kidney disease Current Visit: No Status: Acute Plan to address problem: Medications adjusted 3 days ago. Follow-up blood pressure on the adjusted medications. (4) Type 2 diabetes mellitus with diabetic chronic kidney disease Current Visit: No Status: Chronic Plan to address problem: Blood sugar management by primary attending (5) Cerebrovascular accident (CVA) Current Visit: Yes Status: Acute Plan to address problem: Continue physical therapy Subjective Date of service: 07/04/19 Principal diagnosis: CVA Interval history: Patient seen lying in bed getting physical therapy. She has no complaints. She is feeling better Objective - Exam Narrative Exam: Middle-age of tremor: Female lying in bed in no acute distress HEENT: NCAT, pink oral mucous membrane Neck: Supple, no venous distention CVS: S1S2 RRR with no murmur, rub or gallop Chest: Clear to auscultation Abdomen: Protuberant, soft, nontender, no organomegaly, bowel sounds are present Extremities: No edema Neuro: Awake, alert left hemiparesis - Vital Signs Vital signs: Vital Signs - 12hr 07/03/19 07/03/19 07/04/19 23:47 23:48 04:00 Temperature 98.6 F Pulse Rate 75 75 76 Respiratory 20 Rate Blood Pressure 166/82 166/72 Blood Pressure 103/61 [Left] O2 Sat by Pulse 100 Oximetry 07/04/19 07/04/19 07/04/19 06:53 06:55 07:49 Temperature 98.1 F Pulse Rate 76 61 72 Respiratory 18 Rate Blood Pressure 103/61 103/61 166/78 Blood Pressure [Left] O2 Sat by Pulse 100 Oximetry 07/04/19 08:59 Temperature Pulse Rate 72 Respiratory Rate Blood Pressure 166/78 Blood Pressure [Left] O2 Sat by Pulse Oximetry - Lab 07/04/19 06:16 07/04/19 06:16 Most recent lab results Calcium 9.4 mg/dL (8.4-10.2) 07/04/19 06:16 Medications & Allergies - Medications Allergies/Adverse Reactions: Allergies amlodipine besylate [From Norvasc] Allergy (Verified 01/21/14 20:31) Vomiting hydromorphone HCl [From Dilaudid] Allergy (Verified 01/21/14 20:31) Vomiting lisinopril Allergy (Verified 01/21/14 20:31) Unknown Home Medications: Home Medications Medication Instructions Recorded Confirmed Last Taken Type Acetaminophen [Acetaminophen TAB] 650 mg PO Q4H PRN 30 Days tablet 06/21/19 07/02/19 07/01/19 Rx Aspirin EC 325 mg PO QDAY 30 Days tablet 06/21/19 07/02/19 07/01/19 Rx 325 AtorvaSTATin [Lipitor] 40 mg PO QHS 30 Days tablet 06/21/19 07/02/19 07/01/19 Rx 40 Ferrous Sulfate [Feosol 325 MG tab] 325 mg PO QDAY tablet 06/21/19 07/02/19 07/01/19 Rx 325 Folic Acid [Folvite] 1 mg PO QDAY tablet 06/21/19 07/02/19 07/01/19 Rx 1 Ondansetron [Zofran ODT TAB] 4 mg PO Q6H PRN 30 Days tab.rapdis 06/21/1906/1207/01/19 Rx 4 Clonidine HCl [Catapres] 0.3 mg PO BID 06/27/19 07/02/19 07/01/19 History 0.3 Insulin Glargine [Lantus] 5 units SQ QHS 06/27/19 07/02/19 07/01/19 History 2 Labetalol HCl [Labetalol 300mg TAB] 300 mg PO BID 06/27/19 07/02/19 07/01/19 History 300 hydrALAZINE [Apresoline TAB] 100 mg PO TID 06/27/19 07/02/19 07/01/19 History 325 Lansoprazole Solutab [Prevacid 30 mg FEEDTUBE QDAY tab.rapdis 07/01/19 07/02/19 07/01/19 Rx Solutab] Lipase/Protease/Amylase [Pancreaze 1 each FEEDTUBE PRN PRN capsule 07/01/19 07/02/19 07/01/[address] 10,500 Unit] 1 Sennosides Tab [Senokot] 8.6 mg PO Q12H PRN tablet 07/01/19 07/02/19 07/01/19 Rx 8.6 Active Medications: Generic Name Dose Route Start Last Admin Trade Name Freq PRN Reason Stop Dose Admin Acetaminophen 650 mg 07/01/19 20:15 Tylenol PO Q6H PRN Non Cardiac Pain or Temp>100.5 Albuterol 2.5 mg 07/01/19 20:16 Proventil IH Q4HRT PRN Shortness Of Breath Aspirin 325 mg 07/02/19 08:00 07/04/19 08:59 Ecotrin PO 325 mg QDAY CASPER Administration Atorvastatin Calcium 40 mg 07/01/19 21:00 07/03/19 23:46 Lipitor PO 40 mg QHS CASPER Administration Bisacodyl 10 mg 07/01/19 20:16 Dulcolax [place] QDAY PRN Constipation Clonidine HCl 0.2 mg 07/04/19 06:00 07/04/19 06:55 Catapres PO 0.2 mg Q8HR CASPER Administration Clonidine HCl 0.1 mg 07/04/19 06:00 07/04/19 06:53 Catapres PO 0.1 mg Q8HR CASPER Administration Dextrose 50 ml 07/01/19 20:02 D50w (25gm) Syringe IV PRN PRN Hypoglycemia Ferrous Sulfate 325 mg 07/02/19 08:00 07/04/19 08:59 Feosol PO 325 mg QDAY CASPER Administration Folic Acid 1 mg 07/02/19 08:00 07/04/19 09:00 Folvite PO 1 mg QDAY CASPER Administration Heparin Sodium (Porcine) 5,000 unit 07/01/19 22:00 07/04/19 06:55 Heparin SUB-Q 5,000 unit Q8HR CASPER Administration Hydralazine HCl 100 mg 07/02/19 08:00 07/04/19 09:00 Apresoline PO 100 mg TID CASPER Administration Hydralazine HCl 10 mg 07/01/19 20:16 Apresoline IV Q4H PRN Hypertension Insulin Human Lispro 0 unit 07/01/19 22:00 07/04/19 09:02 Humalog SUB-Q 1 unit ACHS CASPER Administration Protocol Labetalol HCl 300 mg 07/01/19 22:00 07/04/19 08:59 Normodyne PO 300 mg BID CASPER Administration Nifedipine 30 mg 07/02/19 08:00 07/04/19 08:59 Procardia Xl PO 30 mg QDAY CASPER Administration Ondansetron HCl 4 mg 07/01/19 20:16 Zofran Odt PO Q8H PRN Nausea And Vomiting Pantoprazole Sodium 20 mg 07/02/19 08:00 07/04/19 08:59 Protonix PO 20 mg QDAY CASPER Administration Polyethylene Glycol 17 gm 07/01/19 20:32 Miralax 3350 PO QDAY PRN Constipation
--- NOTE | 2019-07-04 13:46 | Progress Note ---
Assessment and Plan Assessment and plan: Patient is 49-year-old woman with a history of anemia, diabetes, heart failure, stroke, hypertension, COPD, CVA with left side deficit for which she was in [facility] rehabilitation unit from [facility], who was about to be discharge from discharge to the acute Inpatient unit for confusion and elevated blood pressure with systolic BP over 200, inability to talk which began on the weekend per Dr. Singh patient was admitted to the hospital and imaging study showed, Patient Small areas of subacute ischemia are identified in the head of the right caudate nucleus, left parietal white matter and left splenium of the corpus callosum. Patients meds were adjusted and then discharge back to Rehab. * MRI brain without contrast IMPRESSION: Small areas of subacute ischemia are identified in the head of the right caudate nucleus, left parietal white matter and left splenium of the corpus callosum as described. Volume loss. Advanced chronic white matter changes. Chronic focal infarcts in the right zavala radiata and inferior left cerebellum. -New Acute Left ischemic stroke Continue therapy as prescribed. Patient treated with ASA and statin -Hypertensive Restarted BB.and inaddition Clonidine, hydralazine and nifedipine -Acute metabolic Hypertensive encephalopathy: Improving as blood pressure comes down -CKD stage 4, unchanged, avoid nephrotoxins, nephrology consult -DM Type 2 as patient a1c is 4.9 last month, she has had normal a1c of < 6 since 2017, no need for insulins at this time -Anemia: Continue supportive care -Moderate protein malnutrition, Dietitian consult -Diastolic CHF by history; chronic with no acute excarbation -Dypshagia, continue current diet. No new complaints -Depression, stable and improved History Interval history: Patient seen and examined, no adverse event reported overnight and no new complaints. BP still posing a threat with control Hospitalist Physical - Physical exam Narrative exam: Gen: chronically ill appearing, NAD, Awake, aphasia HEENT: NCAT, EOMI, PERRL, Neck: supple, no adenopathy, no thyromegaly, no JVD CVS/Heart: RRR, normal S1S2, pulses present bilaterally Chest/Lungs: CTA B, Symmetrical chest expansion, good air entry bilaterally GI/Abdomen: soft, NTND, good bowel sounds, no guarding or rebound /Bladder: no suprapubic tenderness, no CVA or paraspinal tenderness Extermity/Skin: no c/c/e, no obvious rash, spastic left upper ext. Left hemiplegia. MSK: FROM x 3 Neuro: LEFT HEMIPLEGIA dysarthria Psych: calm - Constitutional Vitals: Temp Pulse Resp BP Pulse Ox 98.1 F 71 18 144/79 99 07/04/19 12:32 07/04/19 12:59 07/04/19 12:32 07/04/19 12:59 07/04/19 12:30 General appearance: Present: no acute distress Results - Labs CBC & Chem 7: 07/04/19 06:16 07/04/19 06:16 Labs: Laboratory Last Values WBC 3.2 K/mm3 (4.5-11.0) L 07/04/19 06:16 RBC 4.20 M/mm3 (3.65-5.03) 07/04/19 06:16 Hgb 11.0 gm/dl (10.1-14.3) 07/04/19 06:16 Hct 33.8 % (30.3-42.9) 07/04/19 06:16 MCV 80 fl (79-97) 07/04/19 06:16 MCH 26 pg (28-32) L 07/04/19 06:16 MCHC 33 % (30-34) 07/04/19 06:16 RDW 20.0 % (13.2-15.2) H 07/04/19 06:16 Plt Count 227 K/mm3 (140-440) 07/04/19 06:16 Sodium 139 mmol/L (137-145) 07/04/19 06:16 Potassium 4.5 mmol/L (3.6-5.0) 07/04/19 06:16 Chloride 101.7 mmol/L (98-107) 07/04/19 06:16 Carbon Dioxide 23 mmol/L (22-30) 07/04/19 06:16 19 mmol/L 07/04/19 06:16 BUN 42 mg/dL (7-17) H 07/04/19 06:16 3.4 mg/dL (0.7-1.2) H 07/04/19 06:16 Estimated GFR 18 ml/min 07/04/19 06:16 12 % 07/04/19 06:16 Glucose 182 mg/dL (65-100) H 07/04/19 06:16 POC Glucose 195 (70-105) H 07/04/19 12:38 Calcium 9.4 mg/dL (8.4-10.2) 07/04/19 06:16 Active Medications - Current Medications Current Medications: Generic Name Dose Route Start Last Admin Trade Name Freq PRN Reason Stop Dose Admin Acetaminophen 650 mg 07/01/19 20:15 Tylenol PO Q6H PRN Non Cardiac Pain or Temp>100.5 Albuterol 2.5 mg 07/01/19 20:16 Proventil IH Q4HRT PRN Shortness Of Breath Aspirin 325 mg 07/02/19 08:00 07/04/19 08:59 Ecotrin PO 325 mg QDAY CASPER Administration Atorvastatin Calcium 40 mg 07/01/19 21:00 07/03/19 23:46 Lipitor PO 40 mg QHS CASPER Administration Bisacodyl 10 mg 07/01/19 20:[address] QDAY PRN Constipation Clonidine HCl 0.2 mg 07/04/19 06:00 07/04/19 12:59 Catapres PO 0.2 mg Q8HR CASPER Administration Clonidine HCl 0.1 mg 07/04/19 06:00 07/04/19 13:00 Catapres PO 0.1 mg Q8HR CASPER Administration Dextrose 50 ml 07/01/19 20:02 D50w (25gm) Syringe IV PRN PRN Hypoglycemia Ferrous Sulfate 325 mg 07/02/19 08:00 07/04/19 08:59 Feosol PO 325 mg QDAY CASPER Administration Folic Acid 1 mg 07/02/19 08:00 07/04/19 09:00 Folvite PO 1 mg QDAY CASPER Administration Heparin Sodium (Porcine) 5,000 unit 07/01/19 22:00 07/04/19 13:00 Heparin SUB-Q 5,000 unit Q8HR CASPER Administration Hydralazine HCl 100 mg 07/02/19 08:00 07/04/19 12:59 Apresoline PO 100 mg TID CASPER Administration Hydralazine HCl 10 mg 07/01/19 20:16 Apresoline IV Q4H PRN Hypertension Insulin Human Lispro 0 unit 07/01/19 22:00 07/04/19 13:05 Humalog SUB-Q 1 unit ACHS CASPER Administration Protocol Labetalol HCl 300 mg 07/01/19 22:00 07/04/19 08:59 Normodyne PO 300 mg BID CASPER Administration Nifedipine 30 mg 07/02/19 08:00 07/04/19 08:59 Procardia Xl PO 30 mg QDAY CASPER Administration Ondansetron HCl 4 mg 07/01/19 20:16 Zofran Odt PO Q8H PRN Nausea And Vomiting Pantoprazole Sodium 20 mg 07/02/19 08:00 07/04/19 08:59 Protonix PO 20 mg QDAY CASPER Administration Polyethylene Glycol 17 gm 07/01/19 20:32 Miralax 3350 PO QDAY PRN Constipation
[2019-07-04] MEDS ORDERED: CATAPRES PO SCH ×2 (14:00)
[2019-07-04] MEDS: APRESOLINE IV PRN (20:28)
[2019-07-05] MEDS: CATAPRES PO SCH ×6 (06:00→22:01)
[2019-07-05] MEDS: HEPARIN SUB-Q SCH ×3 (06:00→22:03)
[2019-07-05] MEDS: APRESOLINE IV PRN ×2 (06:00→18:06)
[2019-07-05 07:42] LABS: Hematocrit 31.3 % (30.3-42.9); Hemoglobin 10.2 gm/dl (10.1-14.3); Mean Corpuscular HGB Conc 33 % (30-34); Mean Corpuscular Volume 80 fl (79-97); Platelet Count 245 K/mm3 (140-440); Red Blood Count 3.89 M/mm3 (3.65-5.03); Red Cell Distribution Width 19.4 % (13.2-15.2)
[2019-07-05 07:53] LABS: Calcium 9.5 mg/dL (8.4-10.2)
[2019-07-05] MEDS ORDERED: PROCARDIA XL PO SCH ×2 (08:00→17:03)
[2019-07-05] MEDS: NORMODYNE PO SCH ×2 (09:12→21:58)
[2019-07-05] MEDS: FEOSOL PO SCH (09:14)
[2019-07-05] MEDS: ECOTRIN PO SCH (09:15)
[2019-07-05] MEDS: PROTONIX PO SCH (09:15)
[2019-07-05] MEDS: APRESOLINE PO SCH ×3 (09:15→20:06)
[2019-07-05] MEDS: FOLVITE PO SCH (09:15)
--- NOTE | 2019-07-05 09:17 | Progress Note ---
Assessment and Plan Assessment and plan: Patient is 49-year-old woman with a history of anemia, diabetes, heart failure, stroke, hypertension, COPD, CVA with left side deficit for which she was in [facility] rehabilitation unit from [facility], who was about to be discharge from discharge to the acute Inpatient unit for confusion and elevated blood pressure with systolic BP over 200, inability to talk which began on the weekend per Dr. Singh patient was admitted to the hospital and imaging study showed, Patient Small areas of subacute ischemia are identified in the head of the right caudate nucleus, left parietal white matter and left splenium of the corpus callosum. Patients meds were adjusted and then discharge back to Rehab. * MRI brain without contrast IMPRESSION: Small areas of subacute ischemia are identified in the head of the right caudate nucleus, left parietal white matter and left splenium of the corpus callosum as described. Volume loss. Advanced chronic white matter changes. Chronic focal infarcts in the right zavala radiata and inferior left cerebellum. -New Acute Left ischemic stroke Continue therapy as prescribed. Patient treated with ASA and statin -Hypertensive Restarted BB.and inaddition Clonidine, hydralazine and nifedipine- bP STILL ELEVATED WILL ADJUST BP MEDS. Discussed with Nursing staff. -Acute metabolic Hypertensive encephalopathy: Improving as blood pressure comes down -CKD stage 4, unchanged, avoid nephrotoxins, nephrology consult -DM Type 2 as patient a1c is 4.9 last month, she has had normal a1c of < 6 since 2017, no need for insulins at this time -Anemia: Continue supportive care -Moderate protein malnutrition, Dietitian consult -Diastolic CHF by history; chronic with no acute excarbation -Dypshagia, continue current diet. No new complaints -Depression, stable and improved History Interval history: Patient seen and examined, no adverse event reported overnight and no new complaints. BP still posing a threat with control, Will adjust them. Hospitalist Physical - Physical exam Narrative exam: Gen: chronically ill appearing, NAD, Awake, aphasia HEENT: NCAT, EOMI, PERRL, Neck: supple, no adenopathy, no thyromegaly, no JVD CVS/Heart: RRR, normal S1S2, pulses present bilaterally Chest/Lungs: CTA B, Symmetrical chest expansion, good air entry bilaterally GI/Abdomen: soft, NTND, good bowel sounds, no guarding or rebound /Bladder: no suprapubic tenderness, no CVA or paraspinal tenderness Extermity/Skin: no c/c/e, no obvious rash, spastic left upper ext. Left hemiplegia. MSK: FROM x 3 Neuro: LEFT HEMIPLEGIA dysarthria Psych: calm - Constitutional Vitals: Temp Pulse Resp BP Pulse Ox 97.5 F L 70 18 191/86 100 07/05/19 08:31 07/05/19 09:12 07/05/19 08:31 07/05/19 09:12 07/05/19 08:31 General appearance: Present: no acute distress Results - Labs CBC & Chem 7: 07/05/19 06:57 07/05/19 06:57 Labs: Laboratory Last Values WBC 3.5 K/mm3 (4.5-11.0) L 07/05/19 06:57 RBC 3.89 M/mm3 (3.65-5.03) 07/05/19 06:57 Hgb 10.2 gm/dl (10.1-14.3) 07/05/19 06:57 Hct 31.3 % (30.3-42.9) 07/05/19 06:57 MCV 80 fl (79-97) 07/05/19 06:57 MCH 26 pg (28-32) L 07/05/19 06:57 MCHC 33 % (30-34) 07/05/19 06:57 RDW 19.4 % (13.2-15.2) H 07/05/19 06:57 Plt Count 245 K/mm3 (140-440) 07/05/19 06:57 Sodium 140 mmol/L (137-145) 07/05/19 06:57 Potassium 4.6 mmol/L (3.6-5.0) 07/05/19 06:57 Chloride 100.5 mmol/L (98-107) 07/05/19 06:57 Carbon Dioxide 23 mmol/L (22-30) 07/05/19 06:57 21 mmol/L 07/05/19 06:57 BUN 40 mg/dL (7-17) H 07/05/19 06:57 3.3 mg/dL (0.7-1.2) H 07/05/19 06:57 Estimated GFR 18 ml/min 07/05/19 06:57 12 % 07/05/19 06:57 Glucose 177 mg/dL (65-100) H 07/05/19 06:57 POC Glucose 192 (70-105) H 07/04/19 23:53 Calcium 9.5 mg/dL (8.4-10.2) 07/05/19 06:57 Active Medications - Current Medications Current Medications: Generic Name Dose Route Start Last Admin Trade Name Freq PRN Reason Stop Dose Admin Acetaminophen 650 mg 07/01/19 20:15 Tylenol PO Q6H PRN Non Cardiac Pain or Temp>100.5 Albuterol 2.5 mg 07/01/19 20:16 Proventil IH Q4HRT PRN Shortness Of Breath Aspirin 325 mg 07/02/19 08:00 07/05/19 09:15 Ecotrin PO 325 mg QDAY CASPER Administration Atorvastatin Calcium 40 mg 07/01/19 21:00 07/04/19 23:11 Lipitor PO 40 mg QHS CASPER Administration Bisacodyl 10 mg 07/01/19 20:16 Dulcolax IN QDAY PRN Constipation Clonidine HCl 0.2 mg 07/04/19 06:00 07/05/19 06:00 Catapres PO 0.2 mg Q8HR CASPER Administration Clonidine HCl 0.1 mg 07/04/19 06:00 07/05/19 06:00 Catapres PO 0.1 mg Q8HR CASPER Administration Dextrose 50 ml 07/01/19 20:02 D50w (25gm) Syringe IV PRN PRN Hypoglycemia Ferrous Sulfate 325 mg 07/02/19 08:00 07/05/19 09:14 Feosol PO 325 mg QDAY CASPER Administration Folic Acid 1 mg 07/02/19 08:00 07/05/19 09:15 Folvite PO 1 mg QDAY CASPER Administration Heparin Sodium (Porcine) 5,000 unit 07/01/19 22:00 07/05/19 06:00 Heparin SUB-Q 5,000 unit Q8HR CASPER Administration Hydralazine HCl 100 mg 07/02/19 08:00 07/05/19 09:15 Apresoline PO 100 mg TID CASPER Administration Hydralazine HCl 10 mg 07/01/19 20:16 07/05/19 06:00 Apresoline IV 10 mg Q4H PRN Administration Hypertension Insulin Human Lispro 0 unit 07/01/19 22:00 07/04/19 22:00 Humalog SUB-Q 1 unit ACHS CASPER Administration Protocol Labetalol HCl 300 mg 07/01/19 22:00 07/05/19 09:12 Normodyne PO 300 mg BID CASPER Administration Nifedipine 60 mg 07/05/19 08:00 07/05/19 09:14 Procardia Xl PO 60 mg QDAY CASPER Administration Ondansetron HCl 4 mg 07/01/19 20:16 Zofran Odt PO Q8H PRN Nausea And Vomiting Pantoprazole Sodium 20 mg 07/02/19 08:00 07/05/19 09:15 Protonix PO 20 mg QDAY CASPER Administration Polyethylene Glycol 17 gm 07/01/19 20:32 Miralax 3350 PO QDAY PRN Constipation
[2019-07-05] MEDS: HumaLOG SUB-Q SCH ×4 (09:20→22:34)
--- NOTE | 2019-07-05 16:35 | Progress Note ---
Assessment and Plan - Patient Problems (1) Chronic kidney disease, stage 4 (severe) Current Visit: Yes Status: Acute Plan to address problem: Kidney function about baseline. Follow-up electrolytes and renal function periodically (2) Heart failure with preserved ejection fraction Current Visit: No Status: Acute Plan to address problem: Continue medications (3) Hypertensive chronic kidney disease with stage 1 through stage 4 chronic kidney disease, or unspecified chronic kidney disease Current Visit: No Status: Acute Plan to address problem: Blood pressure still not controlled. Will increase nifedipine to twice daily. May need to add low-dose diuretic if still not at goal with this regimen.. Follow-up blood pressure on the adjusted medications. (4) Type 2 diabetes mellitus with diabetic chronic kidney disease Current Visit: No Status: Chronic Plan to address problem: Blood sugar management by primary attending (5) Cerebrovascular accident (CVA) Current Visit: Yes Status: Acute Plan to address problem: Continue physical therapy Subjective Date of service: 07/05/19 Principal diagnosis: CVA Interval history: Patient seen lying in bed. She has no complaints. She is feeling better Objective - Exam Narrative Exam: Middle-age of tremor: Female lying in bed in no acute distress HEENT: NCAT, pink oral mucous membrane Neck: Supple, no venous distention CVS: S1S2 RRR with no murmur, rub or gallop Chest: Clear to auscultation Abdomen: Protuberant, soft, nontender, no organomegaly, bowel sounds are present Extremities: No edema Neuro: Awake, alert left hemiparesis - Vital Signs Vital signs: Vital Signs - 12hr 07/05/19 07/05/19 07/05/19 06:00 07:00 08:31 Temperature 97.5 F L Pulse Rate 72 70 Respiratory 18 Rate Blood Pressure 179/92 Blood Pressure 179/79 [Left] Blood Pressure 191/86 [Right] O2 Sat by Pulse 100 Oximetry 07/05/19 07/05/19 07/05/19 09:12 12:14 13:24 Temperature 97.6 F Pulse Rate 70 62 98 H Respiratory 16 Rate Blood Pressure 191/86 165/74 165/74 Blood Pressure [Left] Blood Pressure [Right] O2 Sat by Pulse 98 Oximetry - Lab 07/05/19 06:57 07/05/19 06:57 Most recent lab results Calcium 9.5 mg/dL (8.4-10.2) 07/05/19 06:57 Medications & Allergies - Medications Allergies/Adverse Reactions: Allergies amlodipine besylate [From Norvasc] Allergy (Verified 01/21/14 20:31) Vomiting hydromorphone HCl [From Dilaudid] Allergy (Verified 01/21/14 20:31) Vomiting lisinopril Allergy (Verified 01/21/14 20:31) Unknown Home Medications: Home Medications Medication Instructions Recorded Confirmed Last Taken Type Acetaminophen [Acetaminophen TAB] 650 mg PO Q4H PRN 30 Days tablet 06/21/19 07/02/19 07/01/19 Rx Aspirin EC 325 mg PO QDAY 30 Days tablet 06/21/19 07/02/19 07/01/19 Rx 325 AtorvaSTATin [Lipitor] 40 mg PO QHS 30 Days tablet 06/21/19 07/02/19 07/01/19 Rx 40 Ferrous Sulfate [Feosol 325 MG tab] 325 mg PO QDAY tablet 06/21/19 07/02/19 07/01/19 Rx 325 Folic Acid [Folvite] 1 mg PO QDAY tablet 06/21/19 07/02/19 07/01/19 Rx 1 Ondansetron [Zofran ODT TAB] 4 mg PO Q6H PRN 30 Days tab.rapdis 06/21/19 07/02/19 07/01/19 Rx 4 Clonidine HCl [Catapres] 0.3 mg PO BID 06/27/19 07/02/19 07/01/19 History 0.3 Insulin Glargine [Lantus] 5 units SQ QHS 06/27/19 07/02/19 07/01/19 History 2 Labetalol HCl [Labetalol 300mg TAB] 300 mg PO BID 06/27/19 07/02/19 07/01/19 History 300 hydrALAZINE [Apresoline TAB] 100 mg PO TID 06/27/19 07/02/19 07/01/19 History 325 Lansoprazole Solutab [Prevacid 30 mg FEEDTUBE QDAY tab.rapdis 07/01/19 07/02/19 07/01/19 Rx Solutab] Lipase/Protease/Amylase [Pancreaze 1 each FEEDTUBE PRN PRN capsule 07/01/19 07/02/19 07/01/[address] 10,500 Unit] 1 Sennosides Tab [Senokot] 8.6 mg PO Q12H PRN tablet 07/01/19 07/02/19 07/01/19 Rx 8.6 Active Medications: Generic Name Dose Route Start Last Admin Trade Name Freq PRN Reason Stop Dose Admin Acetaminophen 650 mg 07/01/19 20:15 Tylenol PO Q6H PRN Non Cardiac Pain or Temp>100.5 Albuterol 2.5 mg 07/01/19 20:16 Proventil IH Q4HRT PRN Shortness Of Breath Aspirin 325 mg 07/02/19 08:00 07/05/19 09:15 Ecotrin PO 325 mg QDAY CASPER Administration Atorvastatin Calcium 40 mg 07/01/19 21:00 07/04/19 23:11 Lipitor PO 40 mg QHS CASPER Administration Bisacodyl 10 mg 07/01/19 20:16 Dulcolax [place] QDAY PRN Constipation Clonidine HCl 0.2 mg 07/04/19 06:00 07/05/19 13:24 Catapres PO 0.2 mg Q8HR CASPER Administration Clonidine HCl 0.1 mg 07/04/19 06:00 07/05/19 13:24 Catapres PO 0.1 mg Q8HR CASPER Administration Dextrose 50 ml 07/01/19 20:02 D50w (25gm) Syringe IV PRN PRN Hypoglycemia Ferrous Sulfate 325 mg 07/02/19 08:00 07/05/19 09:14 Feosol PO 325 mg QDAY CASPER Administration Folic Acid 1 mg 07/02/19 08:00 07/05/19 09:15 Folvite PO 1 mg QDAY CASPER Administration Heparin Sodium (Porcine) 5,000 unit 07/01/19 22:00 07/05/19 14:27 Heparin SUB-Q Not Given Q8HR CASPER Hydralazine HCl 100 mg 07/02/19 08:00 07/05/19 13:24 Apresoline PO 100 mg TID CASPER Administration Hydralazine HCl 10 mg 07/01/19 20:16 07/05/19 06:00 Apresoline IV 10 mg Q4H PRN Administration Hypertension Insulin Human Lispro 0 unit 07/01/19 22:00 07/05/19 13:23 Humalog SUB-Q 1 unit ACHS CASPER Administration Protocol Labetalol HCl 300 mg 07/01/19 22:00 07/05/19 09:12 Normodyne PO 300 mg BID CASPER Administration Nifedipine 60 mg 07/05/19 08:00 07/05/19 09:14 Procardia Xl PO 60 mg QDAY CASPER Administration Ondansetron HCl 4 mg 07/01/19 20:16 Zofran Odt PO Q8H PRN Nausea And Vomiting Pantoprazole Sodium 20 mg 07/02/19 08:00 07/05/19 09:15 Protonix PO 20 mg QDAY CASPER Administration Polyethylene Glycol 17 gm 07/01/19 20:32 Miralax 3350 PO QDAY PRN Constipation
[2019-07-06] MEDS: CATAPRES PO SCH ×6 (05:29→23:19)
[2019-07-06] MEDS: HEPARIN SUB-Q SCH ×3 (05:29→23:16)
[2019-07-06] MEDS: ECOTRIN PO SCH (08:59)
[2019-07-06] MEDS: APRESOLINE PO SCH ×3 (09:00→23:37)
[2019-07-06] MEDS: HumaLOG SUB-Q SCH ×4 (09:00→23:23)
[2019-07-06] MEDS: FEOSOL PO SCH (09:00)
[2019-07-06] MEDS: PROTONIX PO SCH (09:00)
[2019-07-06] MEDS: FOLVITE PO SCH (09:00)
[2019-07-06] MEDS: NORMODYNE PO SCH ×2 (09:01→23:20)
--- NOTE | 2019-07-06 09:37 | Progress Note ---
Subjective Date of service: 07/06/19 Principal diagnosis: CVA Interval history: 49-year-old female admitted to outside hospital with shortness of breath and dyspnea on exertion. She is found to have a CHF exacerbation and hypertensive urgency with blood pressure 211/104. Cardiology and nephrology consults were placed. Lasix was discontinued due to elevated creatinine and should be restarted once creatinine is less than 3. Patient's baseline creatinine is 2.1- 2.2. Fluid restriction was started at 15 mL per day. Clonidine and hydralazine were both discontinued patient was continued on labetalol and verapamil. She had to iron infusions. Uncertain why patient was taken off of statin but per patient and her PCP advised not to take it. She does have a history of CVA but was only on aspirin. States statin was stopped by [facility] due to pain in left shoulder which was more likely due to tone. Statin was restarted at outside Hospital. We'll discuss secondary stroke prevention with patient made sure that she and family understand her need to continue with the statin. Patient also bernardo s a history of relapsing remitting multiple sclerosis but has not had a flair in 3 years. States she has falls about once a week. Patient is known to the service and was recently discharged to the acute care side of the hospital due to altered mental status, hypertensive emergency and ultimately CVA. Patient is participating in therapy and making reasonable progress. Taking rest breaks as needed. -BM. Denies pain, palpitations, dyspnea, cough, N/V or joint pain. States she is lightheaded, orthostats OK. BP was elevated over weekend, medications were adjusted. Likely feeling effects of relative hypotension since she is accustomed to SBP>160. Denies spinning or dizziness. LUE tone stable. All records, vitals, labs and medications were reviewed. No other issues per patient, nursing or therapy. Objective - Exam Narrative Exam: MUSCULOSKELETAL SPECIALTY EXAM CONSTITUTIONAL: Well developed, well nourished, appropriately groomed. RIGHT hand dominant. RESPIRATORY: Clear to auscultation bilaterally, no increased work of breathing CARDIOVASCULAR: Regular Rate/ Rhythm, no swelling, edema or tenderness in BUE or BLE. All extremities warm. GI: + bowel sounds, soft, NTTP, nondistended. INTEGUMENTARY: Normal, no lesion, rash, masses or bruising noted in extremities. MUSCULOSKELETAL: BUE and BLE normal without defect, crepitus, subluxation, effusion, arthritic changes or TTP. SA EF WE EE FF FA HF KE ADF EHL APF R / overall L 3/5 3/5 3/5 3/5 3/5 3/5 4/5 4/5 4/5 4/5 4/5 ROM decreased on left upper extremity Tone increased on left upper extremity however less than previous NEURO: Left facial droop including eye Sensation intact in all extremities without extinction. No tremor noted in 4 extremities. Follows 2 step commands. Aphasia not appreciated Dysarthria not appreciated, slowed maris with speech with slight slurring occasionally Dysphagia not appreciated Neglect not appreciated POSTURE and GAIT: Sitting posture good. Balance appears reasonable seated. Patient was able to perform a stand pivot transfer with min to mod assist. Gait reasonable with slowed short steps.. PSYCH: Alert, oriented x3, affect appears flattened. Insight appears intact. - Constitutional Vitals: Vital Signs - 12hr 07/06/19 07/06/19 07/06/19 01:50 02:06 05:41 Temperature 36.5 C 36.6 C Pulse Rate 69 75 72 Respiratory 16 22 Rate Blood Pressure 136/68 Blood Pressure 147/76 [Right] O2 Sat by Pulse 99 99 99 Oximetry 07/06/19 07/06/19 07/06/19 08:57 09:01 09:29 Temperature 36.2 C L Pulse Rate 76 73 73 Respiratory 18 Rate Blood Pressure 147/73 147/73 114/58 Blood Pressure [Right] O2 Sat by Pulse 100 99 Oximetry - Allied health notes Allied health notes reviewed: nursing, PT, OT FIMS assessment as documented by PT/OT/ST: Grooming Patient cleans teeth/dentures: Yes Patient young/brushes hair: No Patient washes, rinses and Yes dries face: Patient washes, rinses and Yes dries hands: Patient applies make-up: No Patient performs (no make-up/ 3/4 (75%) shaving): Grooming FIM Score 5. Supervision ([place] applies toothpaste or opens containers.) Toileting Toileting Device Commode over Toilet Patient able to: Adjust clothes before,Clean self,Adjust clothes after Patient able to perform: 3/3 (100%) Toileting FIM Score 4. Minimal Assistance (Patient = 75% or more. Needs touching.) Social interaction/Memory/Problem solving Social Interaction FIM Score 5. Supervision (Needs supv. <10%. Needs encouragement to participate.) Memory FIM Score 5. Supervision (Needs cueing <10%, stressful/ unfamiliar situations.) Problem Solving FIM Score 5. Supervision (Needs cueing <10% to solve routine problems.) Transfers Mode of Locomotion: Wheelchair Bed/Chair/Wheelchair Transfers 4. Minimal Assistance (Patient = 75% or more. FIM Score Needs touching.) Toilet Transfers FIM Score 4. Minimal Assistance (Patient = 75% or more. Needs touching.) Patient transferred to: Shower Shower Transfers FIM Score 4. Minimal Assistance (Patient = 75% or more. Needs touching.) Locomotion- Stairs Device used on Stairs Handrail/s Number of Stairs Ascended/ 8 Descended Patient used handrail/support: Yes Stairs FIM Score 2. Maximal Assistance (Patient = 25% or more, 4- 6 stairs.) Locomotion- walk/wheelchair Most Frequent Mode of Wheelchair Locomotion: Ambulation Distance 50 Walking FIM Score 2. Maximal Assistance (Patient = 25% or more. Minimum of 50 ft.) Wheelchair Propulsion Distance 150 Wheelchair FIM Score 4. Minimal Assistance (Patient = 75% or more. Minimum of 150 ft.) Eating Eating FIM Score 5. Supervision/Set-Up (Needs help w/ containers, cutting meat, etc.) Dressing-Upper body Patient retrieves clothing No items: Patient applies/removes UE No prosthesis or orthosis: Upper Body Dressing FIM Score 3. Moderate Assistance (Patient = 50% or more) Dressing-lower body Patient retrieves clothing No items: Patient applies/removes LE No prosthesis or orthosis: Lower Body Dressing FIM Score 2. Maximal Assistance (Patient = 25% or more) - Labs CBC & Chem 7: 07/05/19 06:57 07/05/19 06:57 Labs: Laboratory Results - last 72 hr 07/03/19 07/03/19 07/03/19 11:49 17:40 21:19 WBC RBC Hgb Hct MCV MCH MCHC RDW Plt Count Sodium Potassium Chloride Carbon Dioxide Anion Gap BUN Creatinine Estimated GFR BUN/Creatinine Ratio Glucose POC Glucose 221 H 157 H 188 H Calcium 07/04/19 07/04/19 07/04/19 06:16 06:16 07:57 WBC 3.2 L RBC 4.20 Hgb 11.0 Hct 33.8 MCV 80 MCH 26 L MCHC 33 RDW 20.0 H Plt Count 227 Sodium 139 Potassium 4.5 Chloride 101.7 Carbon Dioxide 23 Anion Gap 19 BUN 42 H Creatinine 3.4 H Estimated GFR 18 BUN/Creatinine Ratio 12 Glucose 182 H POC Glucose 184 H Calcium 9.4 07/04/19 07/04/19 07/04/19 12:38 16:41 23:53 WBC RBC Hgb Hct MCV MCH MCHC RDW Plt Count Sodium Potassium Chloride Carbon Dioxide Anion Gap BUN Creatinine Estimated GFR BUN/Creatinine Ratio Glucose POC Glucose 195 H 184 H 192 H Calcium 07/05/19 07/05/19 07/05/19 06:57 06:57 08:06 WBC 3.5 L RBC 3.89 Hgb 10.2 Hct 31.3 MCV 80 MCH 26 L MCHC 33 RDW 19.4 H Plt Count 245 Sodium 140 Potassium 4.6 Chloride 100.5 Carbon Dioxide 23 Anion Gap 21 BUN 40 H Creatinine 3.3 H Estimated GFR 18 BUN/Creatinine Ratio 12 Glucose 177 H POC Glucose 176 H Calcium 9.5 07/05/19 07/05/19 07/05/19 12:11 17:16 21:36 WBC RBC Hgb Hct MCV MCH MCHC RDW Plt Count Sodium Potassium Chloride Carbon Dioxide Anion Gap BUN Creatinine Estimated GFR BUN/Creatinine Ratio Glucose POC Glucose 198 H 205 H 214 H Calcium 07/06/19 07:51 WBC RBC Hgb Hct MCV MCH MCHC RDW Plt Count Sodium Potassium Chloride Carbon Dioxide Anion Gap BUN Creatinine Estimated GFR BUN/Creatinine Ratio Glucose POC Glucose 189 H Calcium Assessment and Plan CVA with Left nondominant hemiplegia: discussed secondary stroke prevention and prognosis. continue medications and monitor for worsening neurologic condition. LUE spasticity: Stretching with OT, continue splinting. CKD with acute exacerbation: avoid nephrotoxic medications, monitor renal function, nephrology consult HTN: continue medications, adjust for normotension, nephrology consulted due to renal component. Q4h vitals. PRN coverage available. Hypertensive even with 4 medications DM 2: continue SSI, monitor GLU. A1c was normal. Planned to reduce GLU monitoring based on A1c but she has been running mid to high 200s. Will continue SSI Z73.6 ADL dysfunction: OT will work on improving ability to perform ADLs (including assistive devices) to increase independence and decrease caregiver burden and improve functional transfers and mobility training. R26.2 Difficulty walking: PT will work on gait training and proper use of assistive devices and advance as appropriate to use of stairs and outside ambulation on uneven surfaces. R26.81 Unsteadiness on feet: PT will work on improving static and dynamic sitting and standing balance as well as proper use of assistive devices to decrease risk of falls. R26.89 Abnormality of gait: PT will work to improve safety and efficiency of gait through neuromotor training and gait training along with instruction on proper use of assistive devices. M62.81 Muscle weakness: PT & OT will work on strengthening exercises to improve functional strength including mixture of closed and open kinetic chain exercises. R53.81 Debility: PT & OT will work on improving overall functional status to improve participation with ADLs, mobility and social involvement. R53.83 Fatigue: PT & OT will work on improving endurance through aerobic exercises and therapeutic activity while monitoring patients tolerance for activity and vital signs as needed. MS: monitor for any worsening symptoms DVT ppx: heparin Pain: Continue physical modalities in therapy and pain medications as needed to achieve functional pain control. Sleep: Monitor and address as needed. Bowel: Monitor and address as needed. PRN meds available Appetite: Monitor and address as needed. Discharge planning: Pending therapy progress and care plan meeting. Will continue discussion with therapy team, SW, patient and family. Restrictions/ Precautions: Falls WB status: FWB Functional Hx: ADLs: Independent Cognition: Independent Mobility: RW Barriers to Discharge: Decreased mobility and ability to perform self care, balance deficits, weakness, spasticity Estimated Length of Stay: 10-14 days Discharge Destination: Home with family, will need some assistance at home.
--- NOTE | 2019-07-06 10:54 | Progress Note ---
Assessment and Plan - Patient Problems (1) Chronic kidney disease, stage 4 (severe) Current Visit: Yes Status: Acute Plan to address problem: Kidney function about baseline. Follow-up electrolytes and renal function periodically (2) Heart failure with preserved ejection fraction Current Visit: No Status: Acute Plan to address problem: Appears to be euvolemic. Continue medications (3) Hypertensive chronic kidney disease with stage 1 through stage 4 chronic kidney disease, or unspecified chronic kidney disease Current Visit: No Status: Chronic Plan to address problem: BP improved after increasing nifedipine 90mg po daily. Follow-up blood pressure on the adjusted medications. (4) Type 2 diabetes mellitus with diabetic chronic kidney disease Current Visit: No Status: Chronic Plan to address problem: Blood sugar management by primary attending (5) Cerebrovascular accident (CVA) Current Visit: Yes Status: Acute Plan to address problem: Continue OT/PT Subjective Date of service: 07/06/19 Principal diagnosis: CVA Interval history: pt awake, alert, in no acute distress Objective - Vital Signs Vital signs: Vital Signs - 12hr 07/06/19 07/06/19 07/06/19 01:50 02:06 05:41 Temperature 97.7 F 97.8 F Pulse Rate 69 75 72 Respiratory 16 22 Rate Blood Pressure 136/68 Blood Pressure 147/76 [Right] O2 Sat by Pulse 99 99 99 Oximetry 07/06/19 07/06/19 07/06/19 08:57 09:01 09:29 Temperature 97.2 F L Pulse Rate 76 73 73 Respiratory 18 Rate Blood Pressure 147/73 147/73 114/58 Blood Pressure [Right] O2 Sat by Pulse 100 99 Oximetry - General Appearance General appearance: well-developed, well-nourished, appears stated age EENT: ATNC, PERRL, mucous membranes moist Neck: no JVD Respiratory: Present: Clear to Ascultation Cardiology: regular, S1S2 Gastrointestinal: normoactive bowel sounds Integumentary: no rash, other (no edema ) Neurologic: no focal deficit, alert and oriented x3, strength 5/5, CN 3-12 intact Psychiatric: mood/affect appropriate, cooperative - Lab 07/05/19 06:57 07/05/19 06:57 Most recent lab results Calcium 9.5 mg/dL (8.4-10.2) 07/05/19 06:57 Medications & Allergies - Medications Allergies/Adverse Reactions: Allergies amlodipine besylate [From Norvasc] Allergy (Verified 01/21/14 20:31) Vomiting hydromorphone HCl [From Dilaudid] Allergy (Verified 01/21/14 20:31) Vomiting lisinopril Allergy (Verified 01/21/14 20:31) Unknown Home Medications: Home Medications Medication Instructions Recorded Confirmed Last Taken Type Acetaminophen [Acetaminophen TAB] 650 mg PO Q4H PRN 30 Days tablet 06/21/19 07/02/19 07/01/19 Rx Aspirin EC 325 mg PO QDAY 30 Days tablet 06/21/19 07/02/19 07/01/19 Rx 325 AtorvaSTATin [Lipitor] 40 mg PO QHS 30 Days tablet 06/21/19 07/02/19 07/01/19 Rx 40 Ferrous Sulfate [Feosol 325 MG tab] 325 mg PO QDAY tablet 06/21/19 07/02/19 07/01/19 Rx 325 Folic Acid [Folvite] 1 mg PO QDAY tablet 06/21/19 07/02/19 07/01/19 Rx 1 Ondansetron [Zofran ODT TAB] 4 mg PO Q6H PRN 30 Days tab.rapdis 06/21/19 07/02/19 07/01/19 Rx 4 Clonidine HCl [Catapres] 0.3 mg PO BID 06/27/19 07/02/19 07/01/19 History 0.3 Insulin Glargine [Lantus] 5 units SQ QHS 06/27/19 07/02/19 07/01/19 History 2 Labetalol HCl [Labetalol 300mg TAB] 300 mg PO BID 06/27/19 07/02/19 07/01/19 History 300 hydrALAZINE [Apresoline TAB] 100 mg PO TID 06/27/19 07/02/19 07/01/19 History 325 Lansoprazole Solutab [Prevacid 30 mg FEEDTUBE QDAY tab.rapdis 07/01/19 07/02/19 07/01/19 Rx Solutab] Lipase/Protease/Amylase [Pancreaze 1 each FEEDTUBE PRN PRN capsule 07/01/19 07/02/19 07/01/[address] 10,500 Unit] 1 Sennosides Tab [Senokot] 8.6 mg PO Q12H PRN tablet 07/01/19 07/02/19 07/01/19 Rx 8.6 Active Medications: Generic Name Dose Route Start Last Admin Trade Name Freq PRN Reason Stop Dose Admin Acetaminophen 650 mg 07/01/19 20:15 Tylenol PO Q6H PRN Non Cardiac Pain or Temp>100.5 Albuterol 2.5 mg 07/01/19 20:16 Proventil IH Q4HRT PRN Shortness Of Breath Aspirin 325 mg 07/02/19 08:00 07/06/19 08:59 Ecotrin PO 325 mg QDAY CAS[place] Administration Atorvastatin Calcium 40 mg 07/01/19 21:00 07/05/19 21:57 Lipitor PO 40 mg QHS CASPER Administration Bisacodyl 10 mg 07/01/19 20:16 Dulcolax [place] QDAY PRN Constipation Clonidine HCl 0.2 mg 07/04/19 06:00 07/06/19 05:29 Catapres PO 0.2 mg Q8HR CASPER Administration Clonidine HCl 0.1 mg 07/04/19 06:00 07/06/19 05:29 Catapres PO 0.1 mg Q8HR CASPER Administration Dextrose 50 ml 07/01/19 20:02 D50w (25gm) Syringe IV PRN PRN Hypoglycemia Ferrous Sulfate 325 mg 07/02/19 08:00 07/06/19 09:00 Feosol PO 325 mg QDAY CASPER Administration Folic Acid 1 mg 07/02/19 08:00 07/06/19 09:00 Folvite PO 1 mg QDAY CASPER Administration Heparin Sodium (Porcine) 5,000 unit 07/01/19 22:00 07/06/19 05:29 Heparin SUB-Q 5,000 unit Q8HR CASPER Administration Hydralazine HCl 100 mg 07/02/19 08:00 07/06/19 09:00 Apresoline PO 100 mg TID CASPER Administration Hydralazine HCl 10 mg 07/01/19 20:16 07/05/19 18:06 Apresoline IV 10 mg Q4H PRN Administration Hypertension Insulin Human Lispro 0 unit 07/01/19 22:00 07/06/19 09:00 Humalog SUB-Q 1 unit ACHS CASPER Administration Protocol Labetalol HCl 300 mg 07/01/19 22:00 07/06/19 09:01 Normodyne PO 300 mg BID CASPER Administration Nifedipine 90 mg 07/05/19 17:03 07/06/19 09:00 Procardia Xl PO 90 mg QDAY CASPER Administration Ondansetron HCl 4 mg 07/01/19 20:16 Zofran Odt PO Q8H PRN Nausea And Vomiting Pantoprazole Sodium 20 mg 07/02/19 08:00 07/06/19 09:00 Protonix PO 20 mg QDAY CASPER Administration Polyethylene Glycol 17 gm 07/01/19 20:32 Miralax 3350 PO QDAY PRN Constipation
[2019-07-06] MEDS ORDERED: PROCARDIA XL PO SCH (12:23)
--- NOTE | 2019-07-06 18:21 | Progress Note ---
Assessment and Plan Assessment and plan: Patient is 49-year-old woman with a history of anemia, diabetes, heart failure, stroke, hypertension, COPD, CVA with left side deficit for which she was in [facility] rehabilitation unit from [facility], who was about to be discharge from discharge to the acute Inpatient unit for confusion and elevated blood pressure with systolic BP over 200, inability to talk which began on the weekend per Dr. Singh patient was admitted to the hospital and imaging study showed, Patient Small areas of subacute ischemia are identified in the head of the right caudate nucleus, left parietal white matter and left splenium of the corpus callosum. Patients meds were adjusted and then discharge back to Rehab. * MRI brain without contrast IMPRESSION: Small areas of subacute ischemia are identified in the head of the right caudate nucleus, left parietal white matter and left splenium of the corpus callosum as described. Volume loss. Advanced chronic white matter changes. Chronic focal infarcts in the right zavala radiata and inferior left cerebellum. -New Acute Left ischemic stroke Continue therapy as prescribed. Patient treated with ASA and statin -Hypertensive Restarted BB.and inaddition Clonidine, hydralazine and nifedipine- ADJUST DUE TO Hypotensive episode noted, will decrease Nifedipine to 60mg daily. Discussed with Nursing staff. -Acute metabolic Hypertensive encephalopathy: Improving as blood pressure comes down -CKD stage 4, unchanged, avoid nephrotoxins, nephrology consult -DM Type 2 as patient a1c is 4.9 last month, she has had normal a1c of < 6 since 2017, no need for insulins at this time -Anemia: Continue supportive care -Moderate protein malnutrition, Dietitian consult -Diastolic CHF by history; chronic with no acute excarbation -Dypshagia, continue current diet. No new complaints -Depression, stable and improved History Interval history: Patient seen and examined, no adverse event reported overnight and no new complaints. BP DECREASED today. Hospitalist Physical - Physical exam Narrative exam: Gen: chronically ill appearing, NAD, Awake, aphasia HEENT: NCAT, EOMI, PERRL, Neck: supple, no adenopathy, no thyromegaly, no JVD CVS/Heart: RRR, normal S1S2, pulses present bilaterally Chest/Lungs: CTA B, Symmetrical chest expansion, good air entry bilaterally GI/Abdomen: soft, NTND, good bowel sounds, no guarding or rebound /Bladder: no suprapubic tenderness, no CVA or paraspinal tenderness Extermity/Skin: no c/c/e, no obvious rash, spastic left upper ext. Left hemiplegia. MSK: FROM x 3 Neuro: LEFT HEMIPLEGIA dysarthria Psych: calm - Constitutional Vitals: Temp Pulse Resp BP Pulse Ox 98.7 F 72 18 140/71 99 07/06/19 17:53 07/06/19 17:53 07/06/19 17:53 07/06/19 17:53 07/06/19 17:53 General appearance: Present: no acute distress Results - Labs CBC & Chem 7: 07/05/19 06:57 07/05/19 06:57 Labs: Laboratory Last Values WBC 3.5 K/mm3 (4.5-11.0) L 07/05/19 06:57 RBC 3.89 M/mm3 (3.65-5.03) 07/05/19 06:57 Hgb 10.2 gm/dl (10.1-14.3) 07/05/19 06:57 Hct 31.3 % (30.3-42.9) 07/05/19 06:57 MCV 80 fl (79-97) 07/05/19 06:57 MCH 26 pg (28-32) L 07/05/19 06:57 MCHC 33 % (30-34) 07/05/19 06:57 RDW 19.4 % (13.2-15.2) H 07/05/19 06:57 Plt Count 245 K/mm3 (140-440) 07/05/19 06:57 Sodium 140 mmol/L (137-145) 07/05/19 06:57 Potassium 4.6 mmol/L (3.6-5.0) 07/05/19 06:57 Chloride 100.5 mmol/L (98-107) 07/05/19 06:57 Carbon Dioxide 23 mmol/L (22-30) 07/05/19 06:57 21 mmol/L 07/05/19 06:57 BUN 40 mg/dL (7-17) H 07/05/19 06:57 3.3 mg/dL (0.7-1.2) H 07/05/19 06:57 Estimated GFR 18 ml/min 07/05/19 06:57 12 % 07/05/19 06:57 Glucose 177 mg/dL (65-100) H 07/05/19 06:57 POC Glucose 208 (70-105) H 07/06/19 16:53 Calcium 9.5 mg/dL (8.4-10.2) 07/05/19 06:57 Active Medications - Current Medications Current Medications: Generic Name Dose Route Start Last Admin Trade Name Freq PRN Reason Stop Dose Admin Acetaminophen 650 mg 07/01/19 20:15 Tylenol PO Q6H PRN Non Cardiac Pain or Temp>100.5 Albuterol 2.5 mg 07/01/19 20:16 Proventil IH Q4HRT PRN Shortness Of Breath Aspirin 325 mg 07/02/19 08:00 07/06/19 08:59 Ecotrin PO 325 mg QDAY CASPER Administration Atorvastatin Calcium 40 mg 07/01/19 21:00 07/05/19 21:57 Lipitor PO 40 mg QHS CASPER Administration Bisacodyl 10 mg 07/01/19 20:16 Dulcolax [place] QDAY PRN Constipation Clonidine HCl 0.2 mg 07/04/19 06:00 07/06/19 13:05 Catapres PO 0.2 mg Q8HR CASPER Administration Clonidine HCl 0.1 mg 07/04/19 06:00 07/06/19 13:06 Catapres PO 0.1 mg Q8HR CASPER Administration Dextrose 50 ml 07/01/19 20:02 D50w (25gm) Syringe IV PRN PRN Hypoglycemia Ferrous Sulfate 325 mg 07/02/19 08:00 07/06/19 09:00 Feosol PO 325 mg QDAY CASPER Administration Folic Acid 1 mg 07/02/19 08:00 07/06/19 09:00 Folvite PO 1 mg QDAY CASPER Administration Heparin Sodium (Porcine) 5,000 unit 07/01/19 22:00 07/06/19 16:10 Heparin SUB-Q Not Given Q8HR CASPER Hydralazine HCl 100 mg 07/02/19 08:00 07/06/19 13:06 Apresoline PO 100 mg TID CASPER Administration Hydralazine HCl 10 mg 07/01/19 20:16 07/05/19 18:06 Apresoline IV 10 mg Q4H PRN Administration Hypertension Insulin Human Lispro 0 unit 07/01/19 22:00 08/26/19 17:54 Humalog SUB-Q 2 unit ACHS CASPER Administration Protocol Labetalol HCl 300 mg 07/01/19 22:00 07/06/19 09:01 Normodyne PO 300 mg BID CASPER Administration Nifedipine 60 mg 07/06/19 12:23 Procardia Xl PO QDAY CASPER Ondansetron HCl 4 mg 07/01/19 20:16 Zofran Odt PO Q8H PRN Nausea And Vomiting Pantoprazole Sodium 20 mg 07/02/19 08:00 07/06/19 09:00 Protonix PO 20 mg QDAY CASPER Administration Polyethylene Glycol 17 gm 07/01/19 20:32 Miralax 3350 PO QDAY PRN Constipation
[2019-07-07] MEDS: APRESOLINE IV PRN (05:03)
[2019-07-07] MEDS: CATAPRES PO SCH ×6 (05:12→22:05)
[2019-07-07] MEDS: HEPARIN SUB-Q SCH ×3 (06:19→22:07)
[2019-07-07] MEDS ORDERED: APRESOLINE IV ONE (06:55)
[2019-07-07 07:00] LABS: Calcium 9.4 mg/dL (8.4-10.2)
[2019-07-07] MEDS: APRESOLINE PO SCH ×3 (08:54→22:06)
[2019-07-07] MEDS: ECOTRIN PO SCH (09:00)
[2019-07-07] MEDS: FOLVITE PO SCH (09:00)
[2019-07-07] MEDS: NORMODYNE PO SCH ×2 (09:01→22:06)
[2019-07-07] MEDS: PROTONIX PO SCH (09:02)
[2019-07-07] MEDS: FEOSOL PO SCH (09:02)
[2019-07-07] MEDS: HumaLOG SUB-Q SCH ×4 (09:03→22:10)
--- NOTE | 2019-07-07 09:29 | Progress Note ---
Subjective Date of service: 07/07/19 Principal diagnosis: CVA Interval history: 49-year-old female admitted to outside hospital with shortness of breath and dyspnea on exertion. She is found to have a CHF exacerbation and hypertensive urgency with blood pressure 211/104. Cardiology and nephrology consults were placed. Lasix was discontinued due to elevated creatinine and should be restarted once creatinine is less than 3. Patient's baseline creatinine is 2.1- 2.2. Fluid restriction was started at 15 mL per day. Clonidine and hydralazine were both discontinued patient was continued on labetalol and verapamil. She had to iron infusions. Uncertain why patient was taken off of statin but per patient and her PCP advised not to take it. She does have a history of CVA but was only on aspirin. States statin was stopped by [employer]MI[employer] TE[employer]ER due to pain in left shoulder which was more likely due to tone. Statin was restarted at outside Hospital. We'll discuss secondary stroke prevention with patient made sure that she and family understand her need to continue with the statin. Patient also bernardo s a history of relapsing remitting multiple sclerosis but has not had a flair in 3 years. States she has falls about once a week. Patient is known to the service and was recently discharged to the acute care side of the hospital due to altered mental status, hypertensive emergency and ultimately CVA. Patient is participating in therapy and making reasonable progress. Taking rest breaks as needed. -BM. Denies pain, palpitations, dyspnea, cough, N/V or joint pain. States she is lightheaded again this AM, orthostats OK yesterday. [place] better in early afternoon. BP was elevated over again last night and this AM. Procardia XL decreased yesterday due to lightheadedness by IM. Planned to discuss return to prior dose but nephrology has adjusted. Will monitor on current medications and see how she responds. Likely feeling effects of relative hypotension since she is accustomed to SBP>160. Denies spinning or dizziness. Need to get BP stable on PO meds before discharge. LUE tone stable. Discussed need for assistance at home with father and his . SW with discuss with them as well. All records, vitals, labs and medications were reviewed. No other issues per patient, nursing or therapy. Objective - Exam Narrative Exam: MUSCULOSKELETAL SPECIALTY EXAM CONSTITUTIONAL: Well developed, well nourished, appropriately groomed. RIGHT hand dominant. RESPIRATORY: Clear to auscultation bilaterally, no increased work of breathing CARDIOVASCULAR: Regular Rate/ Rhythm, no swelling, edema or tenderness in BUE or BLE. All extremities warm. GI: + bowel sounds, soft, NTTP, nondistended. INTEGUMENTARY: Normal, no lesion, rash, masses or bruising noted in extremities. MUSCULOSKELETAL: BUE and BLE normal without defect, crepitus, subluxation, effusion, arthritic changes or TTP. SA EF WE EE FF FA HF KE ADF EHL APF R 5/5 overall L 4-/5 4-/5 4-/5 4-/5 4-/5 4-/5 4/5 4/5 4/5 4/5 4/5 ROM decreased on left upper extremity Tone increased on left upper extremity however less than previous NEURO: Left facial droop including eye Sensation intact in all extremities without extinction. No tremor noted in 4 extremities. Follows 2 step commands. Aphasia not appreciated Dysarthria not appreciated, slowed maris with speech with slight slurring occasionally Dysphagia not appreciated Neglect not appreciated POSTURE and GAIT: Sitting posture good. Balance appears reasonable seated. Patient was able to perform a stand pivot transfer with min to mod assist. Gait reasonable with slowed short steps.. PSYCH: Alert, oriented x3, affect appears flattened. Insight appears intact. - Constitutional Vitals: Vital Signs - 12hr 07/06/19 07/06/19 07/07/19 23:19 23:20 04:41 Temperature 36.8 C Pulse Rate 71 71 77 Respiratory 18 Rate Blood Pressure 131/69 131/69 Blood Pressure 195/85 [Left] Blood Pressure [Right] O2 Sat by Pulse 100 Oximetry 07/07/19 07/07/19 07/07/19 05:03 05:12 05:26 Temperature Pulse Rate 77 77 77 Respiratory Rate Blood Pressure 195/85 195/85 195/82 Blood Pressure [Left] Blood Pressure [Right] O2 Sat by Pulse Oximetry 07/07/19 07/07/19 07/07/19 06:07 06:35 07:00 Temperature Pulse Rate 77 Respiratory 18 Rate Blood Pressure 204/96 Blood Pressure 194/90 187/101 [Left] Blood Pressure [Right] O2 Sat by Pulse Oximetry 07/07/19 07/07/19 07/07/19 07:01 07:04 07:30 Temperature 36.5 C Pulse Rate 68 73 Respiratory 18 Rate Blood Pressure 187/101 Blood Pressure 194/89 [Left] Blood Pressure 187/88 [Right] O2 Sat by Pulse 100 Oximetry 07/07/19 07/07/19 07:52 09:01 Temperature Pulse Rate 73 73 Respiratory Rate Blood Pressure 187/88 Blood Pressure 187/88 [Left] Blood Pressure [Right] O2 Sat by Pulse Oximetry - Allied health notes Allied health notes reviewed: nursing, PT, OT FIMS assessment as documented by PT/OT/ST: Grooming Patient cleans teeth/dentures: Yes Patient young/brushes hair: No Patient washes, rinses and Yes dries face: Patient washes, rinses and Yes dries hands: Patient applies make-up: No Patient performs (no make-up/ 3/4 (75%) shaving): Grooming FIM Score 5. Supervision ([place] applies toothpaste or opens containers.) Toileting Toileting Device Commode over Toilet Patient able to: Adjust clothes before,Clean self,Adjust clothes after Patient able to perform: 3/3 (100%) Toileting FIM Score 4. Minimal Assistance (Patient = 75% or more. Needs touching.) Social interaction/Memory/Problem solving Social Interaction FIM Score 5. Supervision (Needs supv. <10%. Needs encouragement to participate.) Memory FIM Score 5. Supervision (Needs cueing <10%, stressful/ unfamiliar situations.) Problem Solving FIM Score 5. Supervision (Needs cueing <10% to solve routine problems.) Transfers Mode of Locomotion: Wheelchair Bed/Chair/Wheelchair Transfers 5. Supervision (Needs supv. or set-up for FIM Score sliding board, foot rests.) Toilet Transfers FIM Score 4. Minimal Assistance (Patient = 75% or more. Needs touching.) Patient transferred to: Shower Shower Transfers FIM Score 4. Minimal Assistance (Patient = 75% or more. Needs touching.) Locomotion- Stairs Device used on Stairs Handrail/s Number of Stairs Ascended/ 8 Descended Patient used handrail/support: Yes Stairs FIM Score 2. Maximal Assistance (Patient = 25% or more, 4- 6 stairs.) Locomotion- walk/wheelchair Most Frequent Mode of Wheelchair Locomotion: Ambulation Distance 50 Walking FIM Score 2. Maximal Assistance (Patient = 25% or more. Minimum of 50 ft.) Wheelchair Propulsion Distance 150 Wheelchair FIM Score 4. Minimal Assistance (Patient = 75% or more. Minimum of 150 ft.) Eating Eating FIM Score 5. Supervision/Set-Up (Needs help w/ contain ers, cutting meat, etc.) Dressing-Upper body Patient retrieves clothing No items: Patient applies/removes UE No prosthesis or orthosis: Upper Body Dressing FIM Score 3. Moderate Assistance (Patient = 50% or more) Dressing-lower body Patient retrieves clothing No items: Patient applies/removes LE No prosthesis or orthosis: Lower Body Dressing FIM Score 2. Maximal Assistance (Patient = 25% or more) - Labs CBC & Chem 7: 07/05/19 06:57 07/07/19 06:07 Labs: Laboratory Results - last 72 hr 07/04/19 07/04/19 07/04/19 12:38 16:41 23:53 WBC RBC Hgb Hct MCV MCH MCHC RDW Plt Count Sodium Potassium Chloride Carbon Dioxide Anion Gap BUN Creatinine Estimated GFR BUN/Creatinine Ratio Glucose POC Glucose 195 H 184 H 192 H Calcium 07/05/19 07/05/19 07/05/19 06:57 06:57 08:06 WBC 3.5 L RBC 3.89 Hgb 10.2 Hct 31.3 MCV 80 MCH 26 L MCHC 33 RDW 19.4 H Plt Count 245 Sodium 140 Potassium 4.6 Chloride 100.5 Carbon Dioxide 23 Anion Gap 21 BUN 40 H Creatinine 3.3 H Estimated GFR 18 BUN/Creatinine Ratio 12 Glucose 177 H POC Glucose 176 H Calcium 9.5 07/05/19 07/05/19 07/05/19 12:11 17:16 21:36 WBC RBC Hgb Hct MCV MCH MCHC RDW Plt Count Sodium Potassium Chloride Carbon Dioxide Anion Gap BUN Creatinine Estimated GFR BUN/Creatinine Ratio Glucose POC Glucose 198 H 205 H 214 H Calcium 07/06/19 07/06/19 07/06/19 07:51 12:23 16:53 WBC RBC Hgb Hct MCV MCH MCHC RDW Plt Count Sodium Potassium Chloride Carbon Dioxide Anion Gap BUN Creatinine Estimated GFR BUN/Creatinine Ratio Glucose POC Glucose 189 H 193 H 208 H Calcium 07/06/19 07/07/19 07/07/19 20:47 06:07 07:36 WBC RBC Hgb Hct MCV MCH MCHC RDW Plt Count Sodium 138 Potassium 4.3 Chloride 98.5 Carbon Dioxide 24 Anion Gap 20 BUN 44 H Creatinine 3.4 H Estimated GFR 18 BUN/Creatinine Ratio 13 Glucose 160 H POC Glucose 196 H 162 H Calcium 9.4 Assessment and Plan CVA with Left nondominant hemiplegia: discussed secondary stroke prevention and prognosis. continue medications and monitor for worsening neurologic condition. LUE spasticity: Stretching with OT, continue splinting. CKD with acute exacerbation: avoid nephrotoxic medications, monitor renal function, nephrology consult HTN: continue medications, adjust for normotension, nephrology consulted due to renal component. Q4h vitals. PRN coverage available. Remains uncontrolled, will need better PO control prior to d/c DM 2: continue SSI, monitor GLU. A1c was normal. Planned to reduce GLU monitoring based on A1c but she has been running mid to high 200s. Will contin ue SSI Z73.6 ADL dysfunction: OT will work on improving ability to perform ADLs (including assistive devices) to increase independence and decrease caregiver burden and improve functional transfers and mobility training. R26.2 Difficulty walking: PT will work on gait training and proper use of as sistive devices and advance as appropriate to use of stairs and outside ambulation on uneven surfaces. R26.81 Unsteadiness on feet: PT will work on improving static and dynamic sitting and standing balance as well as proper use of assistive devices to decrease risk of falls. R26.89 Abnormality of gait: PT will work to improve safety and efficiency of gait through neuromotor training and gait training along with instruction on proper use of assistive devices. M62.81 Muscle weakness: PT & OT will work on strengthening exercises to improve functional strength including mixture of closed and open kinetic chain exercises. R53.81 Debility: PT & OT will work on improving overall functional status to improve participation with ADLs, mobility and social involvement. R53.83 Fatigue: PT & OT will work on improving endurance through aerobic exercises and therapeutic activity while monitoring patients tolerance for activity and vital signs as needed. MS: monitor for any worsening symptoms DVT ppx: heparin Pain: Continue physical modalities in therapy and pain medications as needed to achieve functional pain control. Sleep: Monitor and address as needed. Bowel: Monitor and address as needed. PRN meds available Appetite: Monitor and address as needed. Discharge planning: Pending therapy progress and care plan meeting. Will continue discussion with therapy team, SW, patient and family. Restrictions/ Precautions: Falls WB status: FWB Functional Hx: ADLs: Independent Cognition: Independent Mobility: RW Barriers to Discharge: Decreased mobility and ability to perform self care, ba jamar deficits, weakness, spasticity Estimated Length of Stay: 10-14 days Discharge Destination: Home with family, will need some assistance at home.
--- NOTE | 2019-07-07 10:49 | Progress Note ---
Assessment and Plan - Patient Problems (1) Chronic kidney disease, stage 4 (severe) Current Visit: Yes Status: Acute Plan to address problem: Kidney function about baseline. Follow-up electrolytes and renal function periodically (2) Heart failure with preserved ejection fraction Current Visit: No Status: Acute Plan to address problem: Appears to be euvolemic. Continue medications (3) Hypertensive chronic kidney disease with stage 1 through stage 4 chronic kidney disease, or unspecified chronic kidney disease Current Visit: No Status: Chronic Plan to address problem: BP remains uncontrolled, increased nifedipine to 60mg po bid and added bumex 1mg po qd. Follow-up blood pressure on the adjusted medications. (4) Type 2 diabetes mellitus with diabetic chronic kidney disease Current Visit: No Status: Chronic Plan to address problem: Blood sugar management by primary attending (5) Cerebrovascular accident (CVA) Current Visit: Yes Status: Acute Plan to address problem: Continue OT/PT Subjective Date of service: 07/07/19 Principal diagnosis: CVA Interval history: pt awake, alert, in no acute distress Objective - Vital Signs Vital signs: Vital Signs - 12hr 07/06/19 07/06/19 07/07/19 23:19 23:20 04:41 Temperature 98.2 F Pulse Rate 71 71 77 Respiratory 18 Rate Blood Pressure 131/69 131/69 Blood Pressure 195/85 [Left] Blood Pressure [Right] O2 Sat by Pulse 100 Oximetry 07/07/19 07/07/19 07/07/19 05:03 05:12 05:26 Temperature Pulse Rate 77 77 77 Respiratory Rate Blood Pressure 195/85 195/85 195/82 Blood Pressure [Left] Blood Pressure [Right] O2 Sat by Pulse Oximetry 07/07/19 07/07/19 07/07/19 06:07 06:35 07:00 Temperature Pulse Rate 77 Respiratory 18 Rate Blood Pressure 204/96 Blood Pressure 194/90 187/101 [Left] Blood Pressure [Right] O2 Sat by Pulse Oximetry 07/07/19 07/07/19 07/07/19 07:01 07:04 07:30 Temperature 97.7 F Pulse Rate 68 73 Respiratory 18 Rate Blood Pressure 187/101 Blood Pressure 194/89 [Left] Blood Pressure 187/88 [Right] O2 Sat by Pulse 100 Oximetry 07/07/19 07/07/19 07:52 09:01 Temperature Pulse Rate 73 73 Respiratory Rate Blood Pressure 187/88 Blood Pressure 187/88 [Left] Blood Pressure [Right] O2 Sat by Pulse Oximetry - General Appearance General appearance: well-developed, well-nourished, appears stated age EENT: ATNC, PERRL, mucous membranes moist Neck: no JVD Respiratory: Present: Clear to Ascultation Cardiology: regular, S1S2 Gastrointestinal: normoactive bowel sounds Integumentary: no rash, other (no edema ) Neurologic: no focal deficit, alert and oriented x3, strength 5/5 Psychiatric: mood/affect appropriate, cooperative - Lab 07/05/19 06:57 07/07/19 06:07 Most recent lab results Calcium 9.4 mg/dL (8.4-10.2) 07/07/19 06:07 Medications & Allergies - Medications Allergies/Adverse Reactions: Allergies amlodipine besylate [From Norvasc] Allergy (Verified 01/21/14 20:31) Vomiting hydromorphone HCl [From Dilaudid] Allergy (Verified 01/21/14 20:31) Vomiting lisinopril Allergy (Verified 01/21/14 20:31) Unknown Home Medications: Home Medications Medication Instructions Recorded Confirmed Last Taken Type Acetaminophen [Acetaminophen TAB] 650 mg PO Q4H PRN 30 Days tablet 06/21/19 0 07/02/19 07/01/19 Rx Aspirin EC 325 mg PO QDAY 30 Days tablet 06/21/19 07/02/19 07/01/19 Rx 325 AtorvaSTATin [Lipitor] 40 mg PO QHS 30 Days tablet 06/21/19 07/02/19 07/01/19 Rx 40 Ferrous Sulfate [Feosol 325 MG tab] 325 mg PO QDAY tablet 06/21/19 07/02/19 07/01/19 Rx 325 Folic Acid [Folvite] 1 mg PO QDAY tablet 06/21/19 07/02/19 07/01/19 Rx 1 Ondansetron [Zofran ODT TAB] 4 mg PO Q6H PRN 30 Days tab.rapdis 06/21/19 07/02/19 07/01/19 Rx 4 Clonidine HCl [Catapres] 0.3 mg PO BID 06/27/19 07/02/19 07/01/19 History 0.3 Insulin Glargine [Lantus] 5 units SQ QHS 06/27/19 07/02/19 07/01/19 History 2 Labetalol HCl [Labetalol 300mg TAB] 300 mg PO BID 06/27/19 07/02/19 07/01/19 History 300 hydrALAZINE [Apresoline TAB] 100 mg PO TID 06/27/19 07/02/19 07/01/19 History 325 Lansoprazole Solutab [Prevacid 30 mg FEEDTUBE QDAY tab.rapdis 07/01/19 07/02/19 07/01/19 Rx Solutab] Lipase/Protease/Amylase [Pancreaze 1 each FEEDTUBE PRN PRN capsule 07/01/19 07/02/19 07/01/19 Rx 10,500 Unit] 1 Sennosides Tab [Senokot] 8.6 mg PO Q12H PRN tablet 07/01/19 07/02/19 07/01/19 Rx 8.6 Active Medications: Generic Name Dose Route Start Last Admin Trade Name Freq PRN Reason Stop Dose Admin Acetaminophen 650 mg 07/01/19 20:15 Tylenol PO Q6H PRN Non Cardiac Pain or Temp>100.5 Albuterol 2.5 mg 07/01/19 20:16 Proventil IH Q4HRT PRN Shortness Of Breath Aspirin 325 mg 07/02/19 08:00 07/07/19 09:00 Ecotrin PO 325 mg QDAY CASPER Administration Atorvastatin Calcium 40 mg 07/01/19 21:00 07/06/19 23:20 Lipitor PO 40 mg QHS CASPER Administration Bisacodyl 10 mg 07/01/19 20:16 Dulcolax [place] QDAY PRN Constipation Clonidine HCl 0.2 mg 07/04/19 06:00 07/07/19 05:12 Catapres PO 0.2 mg Q8HR CASPER Administration Clonidine HCl 0.1 mg 07/04/19 06:00 07/07/19 05:26 Catapres PO 0.1 mg Q8HR CASPER Administration Dextrose 50 ml 07/01/19 20:02 D50w (25gm) Syringe IV PRN PRN Hypoglycemia Ferrous Sulfate 325 mg 07/02/19 08:00 07/07/19 09:02 Feosol PO 325 mg QDAY CASPER Administration Folic Acid 1 mg 07/02/19 08:00 07/07/19 09:00 Folvite PO 1 mg QDAY CASPER Administration Heparin Sodium (Porcine) 5,000 unit 07/01/19 22:00 07/07/19 06:19 Heparin SUB-Q Not Given Q8HR CASPER Hydralazine HCl 100 mg 07/02/19 08:00 07/07/19 08:54 Apresoline PO 100 mg TID CSAPER Administration Hydralazine HCl 10 mg 07/01/19 20:16 07/07/19 05:03 Apresoline IV 10 mg Q4H PRN Administration Hypertension Insulin Human Lispro 0 unit 07/01/19 22:00 07/07/19 09:03 Humalog SUB-Q 1 unit ACHS CASPER Administration Protocol Labetalol HCl 300 mg 07/01/19 22:00 07/07/19 09:01 Normodyne PO 300 mg BID CASPER Administration Nifedipine 60 mg 07/06/19 12:23 07/07/19 09:00 Procardia Xl PO 60 mg QDAY CASPER Administration Ondansetron HCl 4 mg 07/01/19 20:16 07/06/19 23:20 Zofran Odt PO 4 mg Q8H PRN Administration Nausea And Vomiting Pantoprazole Sodium 20 mg 07/02/19 08:00 07/07/19 09:02 Protonix PO 20 mg QDAY CASPER Administration Polyethylene Glycol 17 gm 07/01/19 20:32 Miralax 3350 PO QDAY PRN Constipation
--- NOTE | 2019-07-07 10:53 | Progress Note ---
Assessment and Plan Assessment and plan: Patient is 49-year-old woman with a history of anemia, diabetes, heart failure, stroke, hypertension, COPD, CVA with left side deficit for which she was in [facility] rehabilitation unit from [facility], who was about to be discharge from discharge to the acute Inpatient unit for confusion and elevated blood pressure with systolic BP over 200, inability to talk which began on the weekend per Dr. Singh patient was admitted to the hospital and imaging study showed, Patient Small areas of subacute ischemia are identified in the head of the right caudate nucleus, left parietal white matter and left splenium of the corpus callosum. Patients meds were adjusted and then discharge back to Rehab. * MRI brain without contrast IMPRESSION: Small areas of subacute ischemia are identified in the head of the right caudate nucleus, left parietal white matter and left splenium of the corpus callosum as described. Volume loss. Advanced chronic white matter changes. Chronic focal infarcts in the right zavala radiata and inferior left cerebellum. --Malignant hypertension; On multiple high-dose antihypertensives and when necessary medications Closely monitor blood pressures and, adjust doses as needed -New Acute ischemic stroke; left-sided weakness Continue therapy as prescribed. Continue ASA and statin, PT and OT rehabilitation --Hypertension; continue current antihypertensives and when necessary medications --Acute metabolic Hypertensive encephalopathy: Improving as blood pressure comes down --CKD stage 4, unchanged, avoid nephrotoxins, nephrology consult -DM Type 2 as patient a1c is 4.9 last month, she has had normal a1c of < 6 since 2017, no need for insulins at this time -Anemia: Continue supportive care -Moderate protein malnutrition, Dietitian consult -Diastolic CHF by history; chronic with no acute excarbation -Dypshagia, continue current diet. No new complaints -Depression, stable and improved History Interval history: Patient seen and examined medical records reviewed. This morning patient's blood pressures range between 187-200 systolic 85-101 diastolic Patient received morning antihypertensives , and at the time of my evaluation around 11 patient's blood pressure was 152/72 Patient denies any chest pain or shortness of breath, Complaints of mild headache Patient is concerned about her uncontrolled blood pressures early this morning Vital signs noted Hospitalist Physical - Constitutional Vitals: Temp Pulse Resp BP Pulse Ox 97.7 F 73 18 187/88 100 07/07/19 07:30 07/07/19 09:01 07/07/19 07:30 07/07/19 09:01 07/07/19 07:30 General appearance: Present: no acute distress, well-nourished, obese - Neck Neck: Present: supple, normal ROM - Respiratory Respiratory effort: normal, labored Respiratory: bilateral: diminished, negative: rales, rhonchi, wheezing - Cardiovascular Rhythm: regular Heart Sounds: Present: S1 & S2 - Extremities Extremities: no ischemia, No edema - Abdominal General gastrointestinal: soft, non-tender, non-distended, normal bowel sounds - Integumentary Integumentary: Present: clear, warm - Psychiatric Psychiatric: appropriate mood/affect, cooperative - Neurologic Neurologic: other (acute CVA with left-sided weakness) Results - Labs CBC & Chem 7: 07/05/19 06:57 07/07/19 06:07 Labs: Laboratory Last Values WBC 3.5 K/mm3 (4.5-11.0) L 07/05/19 06:57 RBC 3.89 M/mm3 (3.65-5.03) 07/05/19 06:57 Hgb 10.2 gm/dl (10.1-14.3) 07/05/19 06:57 Hct 31.3 % (30.3-42.9) 07/05/19 06:57 MCV 80 fl (79-97) 07/05/19 06:57 MCH 26 pg (28-32) L 07/05/19 06:57 MCHC 33 % (30-34) 07/05/19 06:57 RDW 19.4 % (13.2-15.2) H 07/05/19 06:57 Plt Count 245 K/mm3 (140-440) 07/05/19 06:57 Sodium 138 mmol/L (137-145) 07/07/19 06:07 Potassium 4.3 mmol/L (3.6-5.0) 07/07/19 06:07 Chloride 98.5 mmol/L (98-107) 07/07/19 06:07 Carbon Dioxide 24 mmol/L (22-30) 07/07/19 06:07 20 mmol/L 07/07/19 06:07 BUN 44 mg/dL (7-17) H 07/07/19 06:07 3.4 mg/dL (0.7-1.2) H 07/07/19 06:07 Estimated GFR 18 ml/min 07/07/19 06:07 13 % 07/07/19 06:07 Glucose 160 mg/dL (65-100) H 07/07/19 06:07 POC Glucose 162 (70-105) H 07/07/19 07:36 Calcium 9.4 mg/dL (8.4-10.2) 07/07/19 06:07 Active Medications - Current Medications Current Medications: Generic Name Dose Route Start Last Admin Trade Name Freq PRN Reason Stop Dose Admin Acetaminophen 650 mg 07/01/19 20:15 Tylenol PO Q6H PRN Non Cardiac Pain or Temp>100.5 Albuterol 2.5 mg 07/01/19 20:16 Proventil IH Q4HRT PRN Shortness Of Breath Aspirin 325 mg 07/02/19 08:00 07/07/19 09:00 Ecotrin PO 325 mg QDAY CASPER Administration Atorvastatin Calcium 40 mg 07/01/19 21:00 07/06/19 23:20 Lipitor PO 40 mg QHS CASPER Administration Bisacodyl 10 mg 07/01/19 20:16 Dulcolax [place] QDAY PRN Constipation Bumetanide 1 mg 07/07/19 11:00 Bumex PO QDAY CASPER Clonidine HCl 0.2 mg 07/04/19 06:00 07/07/19 05:12 Catapres PO 0.2 mg Q8HR CASPER Administration Clonidine HCl 0.1 mg 07/04/19 06:00 07/07/19 05:26 Catapres PO 0.1 mg Q8HR CASPER Administration Dextrose 50 ml 07/01/19 20:02 D50w (25gm) Syringe IV PRN PRN Hypoglycemia Ferrous Sulfate 325 mg 07/02/19 08:00 07/07/19 09:02 Feosol PO 325 mg QDAY CASPER Administration Folic Acid 1 mg 07/02/19 08:00 07/07/19 09:00 Folvite PO 1 mg QDAY CASPER Administration Heparin Sodium (Porcine) 5,000 unit 07/01/19 22:00 07/07/19 06:19 Heparin SUB-Q Not Given Q8HR CASPER Hydralazine HCl 100 mg 07/02/19 08:00 07/07/19 08:54 Apresoline PO 100 mg TID CASPER Administration Hydralazine HCl 10 mg 07/01/19 20:16 07/07/19 05:03 Apresoline IV 10 mg Q4H PRN Administration Hypertension Insulin Human Lispro 0 unit 07/01/19 22:00 07/07/19 09:03 Humalog SUB-Q 1 unit ACHS CASPER Administration Protocol Labetalol HCl 300 mg 07/01/19 22:00 07/07/19 09:01 Normodyne PO 300 mg BID CASPER Administration Nifedipine 60 mg 07/07/19 18:00 Procardia Xl PO Q12H CASPER Ondansetron HCl 4 mg 07/01/19 20:16 07/06/19 23:20 Zofran Odt PO 4 mg Q8H PRN Administration Nausea And Vomiting Pantoprazole Sodium 20 mg 07/02/19 08:00 07/07/19 09:02 Protonix PO 20 mg QDAY CASPER Administration Polyethylene Glycol 17 gm 07/01/19 20:32 Miralax 3350 PO QDAY PRN Constipation
[2019-07-07] MEDS: BUMEX PO SCH (12:58)
[2019-07-07] MEDS: PROCARDIA XL PO SCH (19:49)
[2019-07-08] MEDS: CATAPRES PO SCH ×6 (05:43→22:52)
[2019-07-08] MEDS: HEPARIN SUB-Q SCH ×3 (05:44→22:56)
[2019-07-08] MEDS: PROCARDIA XL PO SCH ×2 (05:53→18:35)
[2019-07-08 07:28] LABS: Calcium 9.5 mg/dL (8.4-10.2)
--- NOTE | 2019-07-08 07:54 | Progress Note ---
Subjective Date of service: 07/08/19 Principal diagnosis: CVA Interval history: 49-year-old female admitted to outside hospital with shortness of breath and dyspnea on exertion. She is found to have a CHF exacerbation and hypertensive urgency with blood pressure 211/104. Cardiology and nephrology consults were placed. Lasix was discontinued due to elevated creatinine and should be restarted once creatinine is less than 3. Patient's baseline creatinine is 2.1- 2.2. Fluid restriction was started at 15 mL per day. Clonidine and hydralazine were both discontinued patient was continued on labetalol and verapamil. She had to iron infusions. Uncertain why patient was taken off of statin but per patient and her PCP advised not to take it. She does have a history of CVA but was only on aspirin. States statin was stopped by [employer] due to pain in left shoulder which was more likely due to tone. Statin was restarted at outside Hospital. We'll discuss secondary stroke prevention with patient made sure that she and family understand her need to continue with the statin. Patient also bernardo s a history of relapsing remitting multiple sclerosis but has not had a flair in 3 years. States she has falls about once a week. Patient is known to the service and was recently discharged to the acute care side of the hospital due to altered mental status, hypertensive emergency and ultimately CVA. Patient is participating in therapy and making reasonable progress. Taking rest breaks as needed. -BM. Denies pain, palpitations, dyspnea, cough, N/V or joint pain. States she is lightheaded again this AM, orthostats OK yesterday. BP elevated but better. Procardia XL increased yesterday. Evening dose of Procardia held due to BP 110. Will monitor on current medications and see how she responds. Working to get BP stable on PO meds before discharge. LUE tone stable. SW with discuss with discharge options with family in next few days. Don't plan to d/c for 10 days or so. She may improve to be able to be mostly independent, but not there yet. will monitor All records, vitals, labs and medications were reviewed. No other issues per patient, nursing or therapy. Objective - Exam Narrative Exam: MUSCULOSKELETAL SPECIALTY EXAM CONSTITUTIONAL: Well developed, well nourished, appropriately groomed. RIGHT hand dominant. RESPIRATORY: Clear to auscultation bilaterally, no increased work of breathing CARDIOVASCULAR: Regular Rate/ Rhythm, no swelling, edema or tenderness in BUE or BLE. All extremities warm. GI: + bowel sounds, soft, NTTP, nondistended. INTEGUMENTARY: Normal, no lesion, rash, masses or bruising noted in extremities. MUSCULOSKELETAL: BUE and BLE normal without defect, crepitus, subluxation, effusion, arthritic changes or TTP. SA EF WE EE FF FA HF KE ADF EHL APF R 5/5 overall L 4-/5 4-/5 4-/5 4-/5 4-/5 4-/5 4/5 4/5 4/5 4/5 4/5 ROM decreased on left upper extremity Tone increased on left upper extremity however less than previous NEURO: Left facial droop including eye Sensation intact in all extremities without extinction. No tremor noted in 4 extremities. Follows 2 step commands. Aphasia not appreciated Dysarthria not appreciated, slowed maris with speech with slight slurring occasionally Dysphagia not appreciated Neglect not appreciated POSTURE and GAIT: Sitting posture good. Balance appears reasonable seated. Patient was able to perform a stand pivot transfer with min to mod assist. Gait reasonable with slowed short steps.. PSYCH: Alert, oriented x3, affect appears flattened. Insight appears intact. - Constitutional Vitals: Vital Signs - 12hr 07/07/19 07/07/19 07/07/19 20:11 20:27 22:00 Temperature Pulse Rate Respiratory 16 18 Rate Respiratory Rate [Lower Back] Respiratory Rate [Neck] Blood Pressure O2 Sat by Pulse 100 Oximetry 07/07/19 07/07/19 07/08/19 22:05 22:06 00:17 Temperature 36.9 C Pulse Rate 73 73 74 Respiratory 17 Rate Respiratory Rate [Lower Back] Respiratory Rate [Neck] Blood Pressure 154/78 154/78 165/84 O2 Sat by Pulse 99 Oximetry 07/08/19 07/08/19 07/08/19 01:00 04:49 05:43 Temperature 36.6 C Pulse Rate 74 74 Respiratory 16 Rate Respiratory 18 Rate [Lower Back] Respiratory 20 Rate [Neck] Blood Pressure 156/83 156/83 O2 Sat by Pulse 96 Oximetry 07/08/19 07:14 Temperature 36.3 C L Pulse Rate 71 Respiratory 18 Rate Respiratory Rate [Lower Back] Respiratory Rate [Neck] Blood Pressure 160/79 O2 Sat by Pulse 98 Oximetry - Allied health notes Allied health notes reviewed: nursing, PT, OT FIMS assessment as documented by PT/OT/ST: Grooming Patient cleans teeth/dentures: Yes Patient young/brushes hair: No Patient washes, rinses and Yes dries face: Patient washes, rinses and Yes dries hands: Patient applies make-up: No Patient performs (no make-up/ 3/4 (75%) shaving): Grooming FIM Score 5. Supervision ([place] applies toothpaste or opens containers.) Toileting Toileting Device Commode over Toilet Patient able to: Adjust clothes before,Clean self,Adjust clothes after Patient able to perform: 3/3 (100%) Toileting FIM Score 4. Minimal Assistance (Patient = 75% or more. Needs touching.) Social interaction/Memory/Problem solving Social Interaction FIM Score 4. Minimal Assistance (Interacts appropriately 75-90%.) Memory FIM Score 5. Supervision (Needs cueing <10%, stressful/ unfamiliar situations.) Problem Solving FIM Score 4. Minimal Assistance (Solves routine problems 75-90%.) Transfers Mode of Locomotion: Wheelchair Bed/Chair/Wheelchair Transfers 4. Minimal Assistance (Patient = 75% or more. FIM Score Needs touching.) Toilet Transfers FIM Score 4. Minimal Assistance (Patient = 75% or more. Needs touching.) Patient transferred to: Shower Shower Transfers FIM Score 4. Minimal Assistance (Patient = 75% or more. Needs touching.) Locomotion- Stairs Device used on Stairs Handrail/s Number of Stairs Ascended/ 8 Descended Patient used handrail/support: Yes Stairs FIM Score 2. Maximal Assistance (Patient = 25% or more, 4- 6 stairs.) Locomotion- walk/wheelchair Most Frequent Mode of Wheelchair Locomotion: Ambulation Distance 50 Walking FIM Score 2. Maximal Assistance (Patient = 25% or more. Minimum of 50 ft.) Wheelchair Propulsion Distance 250 Wheelchair FIM Score 5. Supervision (Minimum 150 ft. supv./cues or 50 ft. independently.) Eating Eating FIM Score 5. Supervision/Set-Up (Needs help w/ conta iners, cutting meat, etc.) Dressing-Upper body Patient retrieves clothing No items: Patient applies/removes UE No prosthesis or orthosis: Upper Body Dressing FIM Score 3. Moderate Assistance (Patient = 50% or more) Dressing-lower body Patient retrieves clothing No items: Patient applies/removes LE No prosthesis or orthosis: Lower Body Dressing FIM Score 2. Maximal Assistance (Patient = 25% or more) - Labs CBC & Chem 7: 07/05/19 06:57 07/08/19 07:11 Labs: Laboratory Results - last 72 hr 07/05/19 07/05/19 07/05/19 06:57 08:06 12:11 Sodium 140 Potassium 4.6 Chloride 100.5 Carbon Dioxide 23 Anion Gap 21 BUN 40 H Creatinine 3.3 H Estimated GFR 18 BUN/Creatinine Ratio 12 Glucose 177 H POC Glucose 176 H 198 H Calcium 9.5 07/05/19 07/05/19 07/06/19 17:16 21:36 07:51 Sodium Potassium Chloride Carbon Dioxide Anion Gap BUN Creatinine Estimated GFR BUN/Creatinine Ratio Glucose POC Glucose 205 H 214 H 189 H Calcium 07/06/19 07/06/19 07/06/19 12:23 16:53 20:47 Sodium Potassium Chloride Carbon Dioxide Anion Gap BUN Creatinine Estimated GFR BUN/Creatinine Ratio Glucose POC Glucose 193 H 208 H 196 H Calcium 07/07/19 07/07/19 07/07/19 06:07 07:36 11:23 Sodium 138 Potassium 4.3 Chloride 98.5 Carbon Dioxide 24 Anion Gap 20 BUN 44 H Creatinine 3.4 H Estimated GFR 18 BUN/Creatinine Ratio 13 Glucose 160 H POC Glucose 162 H 228 H Calcium 9.4 07/07/19 07/07/19 07/08/19 17:04 21:43 07:11 Sodium 137 Potassium 4.4 Chloride 97.7 L Carbon Dioxide 24 Anion Gap 20 BUN 48 H Creatinine 3.6 H Estimated GFR 16 BUN/Creatinine Ratio 13 Glucose 153 H POC Glucose 103 154 H Calcium 9.5 07/08/19 07:22 Sodium Potassium Chloride Carbon Dioxide Anion Gap BUN Creatinine Estimated GFR BUN/Creatinine Ratio Glucose POC Glucose 141 H Calcium Assessment and Plan CVA with Left nondominant hemiplegia: discussed secondary stroke prevention and prognosis. continue medications and monitor for worsening neurologic condition. LUE spasticity: Stretching with OT, continue splinting. CKD with acute exacerbation: avoid nephrotoxic medications, monitor renal function, nephrology consult HTN: continue medications, adjust for normotension, nephrology consulted due to renal component. Q4h vitals. PRN coverage available. Remains uncontrolled, will need better PO control prior to d/c DM 2: continue SSI, monitor GLU. A1c was normal. Planned to reduce GLU monitoring based on A1c but she has been running mid to high 200s. Will continue SSI Z73.6 ADL dysfunction: OT will work on improving ability to perform ADLs (including assistive devices) to increase independence and decrease caregiver burden and improve functional transfers and mobility training. R26.2 Difficulty walking: PT will work on gait training and proper use of assistive devices and advance as appropriate to use of stairs and outside ambulation on uneven surfaces. R26.81 Unsteadiness on feet: PT will work on improving static and dynamic sitting and standing balance as well as proper use of assistive devices to decrease risk of falls. R26.89 Abnormality of gait: PT will work to improve safety and efficiency of gait through neuromotor training and gait training along with instruction on proper use of assistive devices. M62.81 Muscle weakness: PT & OT will work on strengthening exercises to improve functional strength including mixture of closed and open kinetic chain exercises. R53.81 Debility: PT & OT will work on improving overall functional status to improve participation with ADLs, mobility and social involvement. R53.83 Fatigue: PT & OT will work on improving endurance through aerobic exercises and therapeutic activity while monitoring patients tolerance for activity and vital signs as needed. MS: monitor for any worsening symptoms DVT ppx: heparin Pain: Continue physical modalities in therapy and pain medications as needed to achieve functional pain control. Sleep: Monitor and address as needed. Bowel: Monitor and address as needed. PRN meds available Appetite: Monitor and address as needed. Discharge planning: Pending therapy progress and care plan meeting. Will con tinue discussion with therapy team, SW, patient and family. Restrictions/ Precautions: Falls WB status: FWB Functional Hx: ADLs: Independent Cognition: Independent Mobility: RW Barriers to Discharge: Decreased mobility and ability to perform self care, balance deficits, weakness, spasticity Estimated Length of Stay: 10-14 days Discharge Destination: Home with family, will need some assistance at home, will continue to work towards highest level of independence.
[2019-07-08] MEDS: HumaLOG SUB-Q SCH ×3 (09:45→18:38)
[2019-07-08] MEDS: NORMODYNE PO SCH ×2 (10:23→22:53)
[2019-07-08] MEDS: ECOTRIN PO SCH (10:24)
[2019-07-08] MEDS: BUMEX PO SCH (10:24)
[2019-07-08] MEDS: FOLVITE PO SCH (10:25)
[2019-07-08] MEDS: FEOSOL PO SCH (10:25)
[2019-07-08] MEDS: APRESOLINE PO SCH ×3 (10:25→22:53)
[2019-07-08] MEDS: PROTONIX PO SCH (10:27)
[2019-07-08] MEDS ORDERED: DULCOLAX PO PRN (12:19)
--- NOTE | 2019-07-08 14:13 | Progress Note ---
Assessment and Plan Assessment and plan: --Malignant hypertension;Well controlled, On multiple high-dose antihypertensives and when necessary medications Closely monitor blood pressures and, adjust doses as needed -New Acute ischemic stroke; left-sided weakness Continue therapy as prescribed. Continue ASA and statin, PT and OT rehabilitation --Hypertension; continue current antihypertensives and when necessary medications --Acute metabolic Hypertensive encephalopathy: Improving as blood pressure comes down --CKD stage 4, unchanged, avoid nephrotoxins, nephrology consult --DM Type 2 as patient a1c is 4.9 last month, she has had normal a1c of < 6 since 2017, no need for insulins at this time --Anemia: Continue supportive care --Moderate protein malnutrition, Dietitian consult --Diastolic CHF by history; chronic with no acute excarbation --Dypshagia, continue current diet. No new complaints --Depression, stable and improved -- DVT prophylaxis:Heparin Continue current management History Interval history: Sincerely and examined medical records reviewed Patient feels better no new complaints Blood pressures are better controlled Vital signs noted Hospitalist Physical - Constitutional Vitals: Temp Pulse Resp BP Pulse Ox 98.2 F 69 16 151/61 98 07/08/19 11:06 07/08/19 11:06 07/08/19 11:06 07/08/19 11:06 07/08/19 11:06 General appearance: Present: no acute distress, well-nourished, obese - EENT Eyes: Present: PERRL, EOM intact - Neck Neck: Present: supple, normal ROM - Respiratory Respiratory effort: normal Respiratory: bilateral: diminished, negative: rales, rhonchi, wheezing - Cardiovascular Rhythm: regular Heart Sounds: Present: S1 & S2 - Extremities Extremities: no ischemia, No edema - Abdominal General gastrointestinal: soft, non-tender, non-distended, normal bowel sounds - Integumentary Integumentary: Present: clear, warm - Psychiatric Psychiatric: appropriate mood/affect, cooperative - Neurologic Neurologic: CNII-XII intact, moves all extremities Results - Labs CBC & Chem 7: 07/05/19 06:57 07/08/19 07:11 Labs: Laboratory Last Values WBC 3.5 K/mm3 (4.5-11.0) L 07/05/19 06:57 RBC 3.89 M/mm3 (3.65-5.03) 07/05/19 06:57 Hgb 10.2 gm/dl (10.1-14.3) 07/05/19 06:57 Hct 31.3 % (30.3-42.9) 07/05/19 06:57 MCV 80 fl (79-97) 07/05/19 06:57 MCH 26 pg (28-32) L 07/05/19 06:57 MCHC 33 % (30-34) 07/05/19 06:57 RDW 19.4 % (13.2-15.2) H 07/05/19 06:57 Plt Count 245 K/mm3 (140-440) 07/05/19 06:57 Sodium 137 mmol/L (137-145) 07/08/19 07:11 Potassium 4.4 mmol/L (3.6-5.0) 07/08/19 07:11 Chloride 97.7 mmol/L (98-107) L 07/08/19 07:11 Carbon Dioxide 24 mmol/L (22-30) 07/08/19 07:11 20 mmol/L 07/08/19 07:11 BUN 48 mg/dL (7-17) H 07/08/19 07:11 3.6 mg/dL (0.7-1.2) H 07/08/19 07:11 Estimated GFR 16 ml/min 07/08/19 07:11 13 % 07/08/19 07:11 Glucose 153 mg/dL (65-100) H 07/08/19 07:11 POC Glucose 238 (70-105) H 07/08/19 11:44 Calcium 9.5 mg/dL (8.4-10.2) 07/08/19 07:11 Active Medications - Current Medications Current Medications: Generic Name Dose Route Start Last Admin Trade Name Freq PRN Reason Stop Dose Admin Acetaminophen 650 mg 07/01/19 20:15 Tylenol PO Q6H PRN Non Cardiac Pain or Temp>100.5 Albuterol 2.5 mg 07/01/19 20:16 Proventil IH Q4HRT PRN Shortness Of Breath Aspirin 325 mg 07/02/19 08:00 07/08/19 10:24 Ecotrin PO 325 mg QDAY [facility] Administration Atorvastatin Calcium 40 mg 07/01/19 21:00 07/07/19 22:05 Lipitor PO 40 mg QHS CASPER Administration Bisacodyl 10 mg 07/01/19 20:16 Dulcolax [place] QDAY PRN Constipation Bisacodyl 5 mg 07/08/19 12:19 07/08/19 12:38 Dulcolax PO 5 mg BID PRN Administration Constipation Bumetanide 1 mg 07/07/19 11:00 07/08/19 10:24 Bumex PO 1 mg QDAY [facility] Administration Clonidine HCl 0.2 mg 07/04/19 06:00 07/08/19 05:43 Catapres PO 0.2 mg Q8HR [facility] Administration Clonidine HCl 0.1 mg 07/04/19 06:00 07/08/19 05:43 Catapres PO 0.1 mg Q8HR [facility] Administration Dextrose 50 ml 07/01/19 20:02 D50w (25gm) Syringe IV PRN PRN Hypoglycemia Ferrous Sulfate 325 mg 07/02/19 08:00 07/08/19 10:25 Feosol PO 325 mg QDAY [facility] Administration Folic Acid 1 mg 07/02/19 08:00 07/08/19 10:25 Folvite PO 1 mg QDAY [facility] Administration Heparin Sodium (Porcine) 5,000 unit 07/01/19 22:00 07/08/19 05:44 Heparin SUB-Q Not Given Q8HR [facility] Hydralazine HCl 100 mg 07/02/19 08:00 07/08/19 10:25 Apresoline PO 100 mg TID [facility]PER Administration Hydralazine HCl 10 mg 07/01/19 20:16 07/07/19 05:03 Apresoline IV 10 mg Q4H PRN Administration Hypertension Insulin Human Lispro 0 unit 07/01/19 22:00 07/08/19 12:48 Humalog SUB-Q 2 unit ACHS CASPER Administration Protocol Labetalol HCl 300 mg 07/01/19 22:00 07/08/19 10:23 Normodyne PO 300 mg BID [facility] Administration Nifedipine 60 mg 07/07/19 18:00 07/08/19 05:53 Procardia Xl PO 60 mg Q12H [facility] Administration Ondansetron HCl 4 mg 07/01/19 20:16 07/06/19 23:20 Zofran Odt PO 4 mg Q8H PRN Administration Nausea And Vomiting Pantoprazole Sodium 20 mg 07/02/19 08:00 07/08/19 10:27 Protonix PO 20 mg QDAY [facility] Administration Polyethylene Glycol 17 gm 07/01/19 20:32 Miralax 3350 PO QDAY PRN Constipation
[2019-07-09] MEDS: HumaLOG SUB-Q SCH ×4 (00:20→16:12)
[2019-07-09] MEDS: APRESOLINE IV PRN (02:43)
[2019-07-09] MEDS: PROCARDIA XL PO SCH ×2 (05:49→19:11)
[2019-07-09] MEDS: HEPARIN SUB-Q SCH ×3 (05:50→22:38)
[2019-07-09] MEDS: CATAPRES PO SCH ×6 (05:51→22:36)
[2019-07-09] MEDS: NORMODYNE PO SCH ×2 (07:41→22:36)
[2019-07-09] MEDS: BUMEX PO SCH (07:42)
[2019-07-09] MEDS: ECOTRIN PO SCH (07:43)
[2019-07-09] MEDS: PROTONIX PO SCH (07:43)
[2019-07-09] MEDS: FEOSOL PO SCH (07:43)
[2019-07-09] MEDS: FOLVITE PO SCH (07:43)
[2019-07-09] MEDS: APRESOLINE PO SCH ×3 (07:44→20:51)
--- NOTE | 2019-07-09 08:59 | Progress Note ---
Subjective Date of service: 07/09/19 Principal diagnosis: CVA Interval history: 49-year-old female admitted to outside hospital with shortness of breath and dyspnea on exertion. She is found to have a CHF exacerbation and hypertensive urgency with blood pressure 211/104. Cardiology and nephrology consults were placed. Lasix was discontinued due to elevated creatinine and should be restarted once creatinine is less than 3. Patient's baseline creatinine is 2.1- 2.2. Fluid restriction was started at 15 mL per day. Clonidine and hydralazine were both discontinued patient was continued on labetalol and verapamil. She had to iron infusions. Uncertain why patient was taken off of statin but per patient and her PCP advised not to take it. She does have a history of CVA but was only on aspirin. 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 Statin was restarted at outside Hospital. We'll discuss secondary stroke prevention with patient made sure that she and family understand her need to continue with the statin. Patient also bernardo s a history of relapsing remitting multiple sclerosis but has not had a flair in 3 years. States she has falls about once a week. Patient is known to the service and was recently discharged to the acute care side of the hospital due to altered mental status, hypertensive emergency and ultimately CVA. Patient is participating in therapy and making reasonable progress. Taking rest breaks as needed. +BM today, dark and tarry per nursing but on iron. Occult Blood NEG. N/V this AM. Check KUB - reviewed film and report - mod stool burden. Monitor. Denies pain, palpitations, dyspnea, cough or joint pain. Refusing heparin TID per report - discussed need to take it. BP decreased midmorning to 98/52. Denies feeling lightheaded. Will see if her BP improves, if not will start IVF. 107/72 by noon. May need to back off a little since starting Procardia XL 60mg BID. Will monitor on current medications and see how she responds. Working to get BP stable on PO meds before discharge. LUE tone stable. SW with discuss with discharge options with family in next few days. Don't plan to d/c for 10 days or so. She may improve to be able to be mostly independent, but not there yet. will monitor Discussed in team conference. Making decent progress. All are concerned with ability to be home alone given medical conditions. If BP is stabilized I think she would be ok to be home alone with close intermittent monitoring and MD follow up. BP will need to be stable for 4 days preferably before I would be comfortable with this option. Otherwise will need a bridge to returning home alone. Physically she will likely be ok to discharge in another 7-10 days. All records, vitals, labs and medications were reviewed. No other issues per patient, nursing or therapy. Objective - Exam Narrative Exam: MUSCULOSKELETAL SPECIALTY EXAM CONSTITUTIONAL: Well developed, well nourished, appropriately groomed. RIGHT hand dominant. RESPIRATORY: Clear to auscultation bilaterally, no increased work of breathing CARDIOVASCULAR: Regular Rate/ Rhythm, no swelling, edema or tenderness in BUE or BLE. All extremities warm. GI: + bowel sounds, soft, NTTP, nondistended. INTEGUMENTARY: Normal, no lesion, rash, masses or bruising noted in extremities. MUSCULOSKELETAL: BUE and BLE normal without defect, crepitus, subluxation, effusion, arthritic changes or TTP. SA EF WE EE FF FA HF KE ADF EHL APF R 5/5 overall L 4-/5 4-/5 4-/5 4-/5 4-/5 4-/5 4/5 4/5 4/5 4/5 4/5 ROM decreased on left upper extremity Tone increased on left upper extremity however less than previous NEURO: Left facial droop including eye Sensation intact in all extremities without extinction. No tremor noted in 4 extremities. Follows 2 step commands. Aphasia not appreciated Dysarthria not appreciated, slowed maris with speech with slight slurring occasionally Dysphagia not appreciated Neglect not appreciated POSTURE and GAIT: Sitting posture good. Balance appears reasonable seated. Patient was able to perform a stand pivot transfer with min to mod assist. Gait reasonable with slowed short steps.. PSYCH: Alert, oriented x3, affect appears flattened. Insight appears intact. - Constitutional Vitals: Vital Signs - 12hr 07/08/19 07/08/19 07/08/19 22:51 22:52 22:53 Temperature Pulse Rate 73 73 73 Respiratory Rate Blood Pressure 179/85 179/85 179/85 Blood Pressure [Right] O2 Sat by Pulse Oximetry 07/09/19 07/09/19 07/09/19 00:09 02:43 05:04 Temperature 36.7 C 37.0 C Pulse Rate 69 71 73 Respiratory 16 20 Rate Blood Pressure 170/81 170/81 119/69 Blood Pressure [Right] O2 Sat by Pulse 99 98 Oximetry 07/09/19 07/09/19 07/09/19 05:51 07:29 07:41 Temperature 36.4 C L Pulse Rate 70 70 Respiratory 18 Rate Blood Pressure 119/69 146/76 Blood Pressure 146/76 [Right] O2 Sat by Pulse 99 Oximetry - Allied health notes Allied health notes reviewed: nursing, PT, OT FIMS assessment as documented by PT/OT/ST: Grooming Patient cleans teeth/dentures: Yes Patient young/brushes hair: No Patient washes, rinses and Yes dries face: Patient washes, rinses and Yes dries hands: Patient applies make-up: No Patient performs (no make-up/ 3/4 (75%) shaving): Grooming FIM Score 5. Supervision ([place] applies toothpaste or opens containers.) Toileting Toileting Device Commode over Toilet Patient able to: Adjust clothes before,Clean self,Adjust clothes after Patient able to perform: 3/3 (100%) Toileting FIM Score 4. Minimal Assistance (Patient = 75% or more. Needs touching.) Social interaction/Memory/Problem solving Social Interaction FIM Score 4. Minimal Assistance (Interacts appropriately 75-90%.) Memory FIM Score 5. Supervision (Needs cueing <10%, stressful/ unfamiliar situations.) Problem Solving FIM Score 4. Minimal Assistance (Solves routine problems 75-90%.) Transfers Mode of Locomotion: Wheelchair Bed/Chair/Wheelchair Transfers 5. Supervision (Needs supv. or set-up for FIM Score sliding board, foot rests.) Toilet Transfers FIM Score 4. Minimal Assistance (Patient = 75% or more. Needs touching.) Patient transferred to: Shower Shower Transfers FIM Score 4. Minimal Assistance (Patient = 75% or more. Needs touching.) Locomotion- Stairs Device used on Stairs Handrail/s Number of Stairs Ascended/ 8 Descended Patient used handrail/support: Yes Stairs FIM Score 2. Maximal Assistance (Patient = 25% or more, 4- 6 stairs.) Locomotion- walk/wheelchair Most Frequent Mode of Wheelchair Locomotion: Ambulation Distance 100 Walking FIM Score 2. Maximal Assistance (Patient = 25% or more. Minimum of 50 ft.) Wheelchair Propulsion Distance 250 Wheelchair FIM Score 5. Supervision (Minimum 150 ft. supv./cues or 50 ft. independently.) Eating Eating FIM Score 5. Supervision/Set-Up (Needs help w/ containers, cutting meat, etc.) Dressing-Upper body Patient retrieves clothing No items: Patient applies/removes UE No prosthesis or orthosis: Upper Body Dressing FIM Score 3. Moderate Assistance (Patient = 50% or more) Dressing-lower body Patient retrieves clothing No items: Patient applies/removes LE No prosthesis or orthosis: Lower Body Dressing FIM Score 2. Maximal Assistance (Patient = 25% or more) - Labs CBC & Chem 7: 07/09/19 12:28 07/08/19 07:11 Labs: Laboratory Results - last 72 hr 07/06/19 07/06/19 07/06/19 12:23 16:53 20:47 Sodium Potassium Chloride Carbon Dioxide Anion Gap BUN Creatinine Estimated GFR BUN/Creatinine Ratio Glucose POC Glucose 193 H 208 H 196 H Calcium 07/07/19 07/07/19 07/07/19 06:07 07:36 11:23 Sodium 138 Potassium 4.3 Chloride 98.5 Carbon Dioxide 24 Anion Gap 20 BUN 44 H Creatinine 3.4 H Estimated GFR 18 BUN/Creatinine Ratio 13 Glucose 160 H POC Glucose 162 H 228 H Calcium 9.4 07/07/19 07/07/19 07/08/19 17:04 21:43 07:11 Sodium 137 Potassium 4.4 Chloride 97.7 L Carbon Dioxide 24 Anion Gap 20 BUN 48 H Creatinine 3.6 H Estimated GFR 16 BUN/Creatinine Ratio 13 Glucose 153 H POC Glucose 103 154 H Calcium 9.5 07/08/19 07/08/19 07/08/19 07:22 11:44 16:14 Sodium Potassium Chloride Carbon Dioxide Anion Gap BUN Creatinine Estimated GFR BUN/Creatinine Ratio Glucose POC Glucose 141 H 238 H 183 H Calcium 07/08/19 07/09/19 22:24 07:44 Sodium Potassium Chloride Carbon Dioxide Anion Gap BUN Creatinine Estimated GFR BUN/Creatinine Ratio Glucose POC Glucose 216 H 182 H Calcium - Imaging and cardiology Abdominal x-ray: report reviewed, image reviewed Assessment and Plan CVA with Left nondominant hemiplegia: discussed secondary stroke prevention and prognosis. continue medications and monitor for worsening neurologic condition. LUE spasticity: Stretching with OT, continue splinting. CKD with acute exacerbation: avoid nephrotoxic medications, monitor renal function, nephrology consult HTN: continue medications, adjust for normotension, nephrology consulted due to renal component. Q4h vitals. PRN coverage available. Remains uncontrolled, will need better PO control prior to d/c DM 2: continue SSI, monitor GLU. A1c was normal. Planned to reduce GLU monitoring based on A1c but she has been running mid to high 200s. Will continue SSI N/V: Zofran available, monitor Z73.6 ADL dysfunction: OT will work on improving ability to perform ADLs (including assistive devices) to increase independence and decrease caregiver burden and improve functional transfers and mobility training. R26.2 Difficulty walking: PT will work on gait training and proper use of assistive devices and advance as appropriate to use of stairs and outside amb ulation on uneven surfaces. R26.81 Unsteadiness on feet: PT will work on improving static and dynamic sitting and standing balance as well as proper use of assistive devices to decrease risk of falls. R26.89 Abnormality of gait: PT will work to improve safety and efficiency of gait through neuromotor training and gait training along with instruction on proper use of assistive devices. M62.81 Muscle weakness: PT & OT will work on strengthening exercises to improve functional strength including mixture of closed and open kinetic chain exercises. R53.81 Debility: PT & OT will work on improving overall functional status to improve participation with ADLs, mobility and social involvement. R53.83 Fatigue: PT & OT will work on improving endurance through aerobic exercises and therapeutic activity while monitoring patients tolerance for activity and vital signs as needed. MS: monitor for any worsening symptoms DVT ppx: heparin Pain: Continue physical modalities in therapy and pain medications as needed to achieve functional pain control. Sleep: Monitor and address as needed. Bowel: Monitor and address as needed. PRN meds available Appetite: Monitor and address as needed. Discharge planning: Pending therapy progress and care plan meeting. Will continue discussion with therapy team, SW, patient and family. Restrictions/ Precautions: Falls WB status: FWB Functional Hx: ADLs: Independent Cognition: Independent Mobility: RW Barriers to Discharge: Decreased mobility and ability to perform self care, balance deficits, weakness, spasticity Estimated Length of Stay: 10-14 days Discharge Destination: Home with family, will need some assistance at home, will continue to work towards highest level of independence.
--- NOTE | 2019-07-09 10:43 | XRay Report ---
ABDOMEN 1 VIEW(S) INDICATION / CLINICAL INFORMATION: N/V, constipation. COMPARISON: None available. FINDINGS: TUBES / LINES: None. BOWEL GAS PATTERN: No significant abnormality. FREE AIR / EXTRALUMINAL GAS: None seen. ADDITIONAL FINDINGS: Right pelvic calcification may be within a fibroid. Gallbladder has been removed . There is moderate stool present especially in the right colon. IMPRESSION: 1. No significant abnormality. Signer Name: Aleksandr Montero MD Signed: 07/09/2019 10:39 AM Workstation Name: [id number]
--- NOTE | 2019-07-09 10:49 | Progress Note ---
Assessment and Plan Assessment and plan: --Black Tarry stool /?Melena Stool for occult blood,GI consult if positive. --Nausea/vomiting/Acute gastritis: antiemetics,protonix and supportive care --Acute ischemic stroke; left-sided weakness Continue therapy as prescribed. Continue ASA and statin, PT and OT rehabilitation --Malignant hypertension;Well controlled, On multiple high-dose antihypertensives and when necessary medications Closely monitor blood pressures and, adjust doses as needed --Acute metabolic Hypertensive encephalopathy: Improving as blood pressure comes down --CKD stage 4, unchanged, avoid nephrotoxins, nephrology consult --DM Type 2 as patient a1c is 4.9 last month, she has had normal a1c of < 6 since 2017, no need for insulins at this time --Anemia: Continue supportive care --Moderate protein malnutrition, Dietitian consult --Diastolic CHF by history; chronic with no acute excarbation --Dypshagia, continue current diet. No new complaints --Depression, stable and improved -- DVT prophylaxis:Heparin Continue current management History Interval history: Patient seen and examined Nurse reports that patient had black tarry stool and nausea and vomiting this morning Patient c/o nausea, BP well controlled Vitals reviewed Hospitalist Physical - Constitutional Vitals: Temp Pulse Resp BP Pulse Ox 97.5 F L 60 18 109/49 99 07/09/19 07:29 07/09/19 10:15 07/09/19 10:15 07/09/19 10:15 07/09/19 10:15 General appearance: Present: no acute distress, well-nourished, obese - EENT Eyes: Present: PERRL, EOM intact - Neck Neck: Present: supple, normal ROM - Respiratory Respiratory effort: normal Respiratory: bilateral: diminished, negative: rales, rhonchi, wheezing - Cardiovascular Rhythm: regular Heart Sounds: Present: S1 & S2 - Extremities Extremities: no ischemia, No edema - Abdominal General gastrointestinal: soft, non-tender, non-distended, normal bowel sounds - Integumentary Integumentary: Present: clear, warm - Psychiatric Psychiatric: appropriate mood/affect, cooperative - Neurologic Neurologic: other (CVA with residual weakness) Results - Labs CBC & Chem 7: 07/05/19 06:57 07/08/19 07:11 Labs: Laboratory Last Values WBC 3.5 K/mm3 (4.5-11.0) L 07/05/19 06:57 RBC 3.89 M/mm3 (3.65-5.03) 07/05/19 06:57 Hgb 10.2 gm/dl (10.1-14.3) 07/05/19 06:57 Hct 31.3 % (30.3-42.9) 07/05/19 06:57 MCV 80 fl (79-97) 07/05/19 06:57 MCH 26 pg (28-32) L 07/05/19 06:57 MCHC 33 % (30-34) 07/05/19 06:57 RDW 19.4 % (13.2-15.2) H 07/05/19 06:57 Plt Count 245 K/mm3 (140-440) 07/05/19 06:57 Sodium 137 mmol/L (137-145) 07/08/19 07:11 Potassium 4.4 mmol/L (3.6-5.0) 07/08/19 07:11 Chloride 97.7 mmol/L (98-107) L 07/08/19 07:11 Carbon Dioxide 24 mmol/L (22-30) 07/08/19 07:11 20 mmol/L 07/08/19 07:11 BUN 48 mg/dL (7-17) H 07/08/19 07:11 3.6 mg/dL (0.7-1.2) H 07/08/19 07:11 Estimated GFR 16 ml/min 07/08/19 07:11 13 % 07/08/19 07:11 Glucose 153 mg/dL (65-100) H 07/08/19 07:11 POC Glucose 182 (70-105) H 07/09/19 07:44 Calcium 9.5 mg/dL (8.4-10.2) 07/08/19 07:11 Active Medications - Current Medications Current Medications: Generic Name Dose Route Start Last Admin Trade Name Freq PRN Reason Stop Dose Admin Acetaminophen 650 mg 07/01/19 20:15 Tylenol PO Q6H PRN Non Cardiac Pain or Temp>100.5 Albuterol 2.5 mg 07/01/19 20:16 Proventil IH Q4HRT PRN Shortness Of Breath Aspirin 325 mg 07/02/19 08:00 07/09/19 07:43 Ecotrin PO 325 mg QDAY CASPER Administration Atorvastatin Calcium 40 mg 07/01/19 21:00 07/08/19 22:53 Lipitor PO 40 mg QHS CASPER Administration Bisacodyl 10 mg 07/01/19 20:16 Dulcolax [place] QDAY PRN Constipation Bisacodyl 5 mg 07/08/19 12:19 07/08/19 12:38 Dulcolax PO 5 mg BID PRN Administration Constipation Bumetanide 1 mg 07/07/19 11:00 07/09/19 07:42 Bumex PO 1 mg QDAY CASPER Administration Clonidine HCl 0.2 mg 07/04/19 06:00 07/09/19 05:51 Catapres PO 0.2 mg Q8HR CASPER Administration Clonidine HCl 0.1 mg 07/04/19 06:00 07/09/19 05:51 Catapres PO 0.1 mg Q8HR CASPER Administration Dextrose 50 ml 07/01/19 20:02 D50w (25gm) Syringe IV PRN PRN Hypoglycemia Ferrous Sulfate 325 mg 07/02/19 08:00 07/09/19 07:43 Feosol PO 325 mg QDAY CASPER Administration Folic Acid 1 mg 07/02/19 08:00 07/09/19 07:43 Folvite PO 1 mg QDAY CASPER Administration Heparin Sodium (Porcine) 5,000 unit 07/01/19 22:00 07/09/19 05:50 Heparin SUB-Q Not Given Q8HR CASPER Hydralazine HCl 100 mg 07/02/19 08:00 07/09/19 07:44 Apresoline PO 100 mg TID CASPER Administration Hydralazine HCl 10 mg 07/01/19 20:16 07/09/19 02:43 Apresoline IV 10 mg Q4H PRN Administration Hypertension Insulin Human Lispro 0 unit 07/01/19 22:00 07/09/19 00:20 Humalog SUB-Q 2 unit ACHS CASPER Administration Protocol Labetalol HCl 300 mg 07/01/19 22:00 07/09/19 07:41 Normodyne PO 300 mg BID CASPER Administration Nifedipine 60 mg 07/07/19 18:00 07/09/19 05:49 Procardia Xl PO 60 mg Q12H CASPER Administration Ondansetron HCl 4 mg 07/01/19 20:16 07/06/19 23:20 Zofran Odt PO 4 mg Q8H PRN Administration Nausea And Vomiting Ondansetron HCl 4 mg 07/09/19 10:27 Zofran IV Q6H PRN Nausea And Vomiting Pantoprazole Sodium 20 mg 07/02/19 08:00 07/09/19 07:43 Protonix PO 20 mg QDAY CASPER Administration Polyethylene Glycol 17 gm 07/01/19 20:32 Miralax 3350 PO QDAY PRN Constipation
[2019-07-09] MEDS: ZOFRAN IV PRN ×2 (11:29→20:55)
[2019-07-09 12:56] LABS: Basophils % (Auto) 0.2 % (0.0-1.8); Eosinophils # (Auto) 0.1 K/mm3 (0.0-0.4); Eosinophils % (Auto) 1.4 % (0.0-4.3); Hematocrit 32.7 % (30.3-42.9); Hemoglobin 10.7 gm/dl (10.1-14.3); Lymphocytes # (Auto) 0.5 K/mm3 (1.2-5.4); Lymphocytes % (Auto) 7.7 % (13.4-35.0); Mean Corpuscular HGB Conc 33 % (30-34); Mean Corpuscular Volume 80 fl (79-97); Monocytes # (Auto) 0.3 K/mm3 (0.0-0.8); Monocytes % (Auto) 5.4 % (0.0-7.3); Platelet Count 277 K/mm3 (140-440); Red Blood Count 4.09 M/mm3 (3.65-5.03); Red Cell Distribution Width 19.1 % (13.2-15.2)
--- NOTE | 2019-07-09 17:53 | Progress Note ---
Assessment and Plan - Patient Problems (1) Chronic kidney disease, stage 4 (severe) Current Visit: Yes Status: Acute Plan to address problem: Kidney function about baseline. Follow-up electrolytes and renal function periodically (2) Heart failure with preserved ejection fraction Current Visit: No Status: Acute Plan to address problem: Appears to be euvolemic. Continue medications (3) Hypertensive chronic kidney disease with stage 1 through stage 4 chronic kidney disease, or unspecified chronic kidney disease Current Visit: No Status: Chronic Plan to address problem: BP improved with increased nifedipine to 60mg po bid and adding bumex 1mg po qd. Follow-up blood pressure on the adjusted medications. (4) Type 2 diabetes mellitus with diabetic chronic kidney disease Current Visit: No Status: Chronic Plan to address problem: Blood sugar management by primary attending (5) Cerebrovascular accident (CVA) Current Visit: Yes Status: Acute Plan to address problem: Continue OT/PT Subjective Date of service: 07/09/19 Principal diagnosis: CVA Interval history: pt awake, alert, in no acute distress Objective - Vital Signs Vital signs: Vital Signs - 12hr 07/09/19 07/09/19 07/09/19 07:29 07:41 09:38 Temperature 97.5 F L Pulse Rate 70 70 75 Respiratory 18 18 Rate Blood Pressure 146/76 Blood Pressure 98/52 [Left] Blood Pressure 146/76 [Right] O2 Sat by Pulse 99 98 Oximetry 07/09/19 07/09/19 07/09/19 10:15 11:34 15:48 Temperature 97.9 F 97.8 F Pulse Rate 60 61 66 Respiratory 18 18 18 Rate Blood Pressure 107/72 156/78 Blood Pressure 109/49 [Left] Blood Pressure [Right] O2 Sat by Pulse 99 99 98 Oximetry 07/09/19 07/09/19 16:00 16:02 Temperature Pulse Rate 68 68 Respiratory Rate Blood Pressure 132/78 132/78 Blood Pressure [Left] Blood Pressure [Right] O2 Sat by Pulse Oximetry - General Appearance General appearance: well-developed, well-nourished, appears stated age EENT: ATNC, PERRL, mucous membranes moist Neck: no JVD Respiratory: Present: Clear to Ascultation Cardiology: regular, S1S2 Gastrointestinal: normoactive bowel sounds Integumentary: no rash, other (no edema) Neurologic: no focal deficit, alert and oriented x3, strength 5/5 Psychiatric: mood/affect appropriate, cooperative - Lab 07/09/19 12:28 07/08/19 07:11 Most recent lab results Calcium 9.5 mg/dL (8.4-10.2) 07/08/19 07:11 Medications & Allergies - Medications Allergies/Adverse Reactions: Allergies amlodipine besylate [From Norvasc] Allergy (Verified 01/21/14 20:31) Vomiting hydromorphone HCl [From Dilaudid] Allergy (Verified 01/21/14 20:31) Vomiting lisinopril Allergy (Verified 01/21/14 20:31) Unknown Home Medications: Home Medications Medication Instructions Recorded Confirmed Last Taken Type Acetaminophen [Acetaminophen TAB] 650 mg PO Q4H PRN 30 Days tablet 06/21/19 07/02/19 07/01/19 Rx Aspirin EC 325 mg PO QDAY 30 Days tablet 06/21/19 07/02/19 07/01/19 Rx 325 AtorvaSTATin [Lipitor] 40 mg PO QHS 30 Days tablet 06/21/19 07/02/19 07/01/19 Rx 40 Ferrous Sulfate [Feosol 325 MG tab] 325 mg PO QDAY tablet 06/21/19 07/02/19 07/01/19 Rx 325 Folic Acid [Folvite] 1 mg PO QDAY tablet 06/21/19 07/02/19 07/01/19 Rx 1 Ondansetron [Zofran ODT TAB] 4 mg PO Q6H PRN 30 Days tab.rapdis 06/21/19 07/02/19 07/01/19 Rx 4 Clonidine HCl [Catapres] 0.3 mg PO BID 06/27/19 07/02/19 07/01/19 History 0.3 Insulin Glargine [Lantus] 5 units SQ QHS 06/27/19 07/02/19 07/01/19 History 2 Labetalol HCl [Labetalol 300mg TAB] 300 mg PO BID 06/27/19 07/02/19 07/01/19 History 300 hydrALAZINE [Apresoline TAB] 100 mg PO TID 06/27/19 07/02/19 07/01/19 History 325 Lansoprazole Solutab [Prevacid 30 mg FEEDTUBE QDAY tab.rapdis 07/01/19 07/02/19 07/01/19 Rx Solutab] Lipase/Protease/Amylase [Pancreaze 1 each FEEDTUBE PRN PRN capsule 07/01/19 07/02/19 07/01/19 Rx 10,500 Unit] 1 Sennosides Tab [Senokot] 8.6 mg PO Q12H PRN tablet 07/01/19 07/02/19 07/01/19 Rx 8.6 Active Medications: Generic Name Dose Route Start Last Admin Trade Name Freq PRN Reason Stop Dose Admin Acetaminophen 650 mg 07/01/19 20:15 Tylenol PO Q6H PRN Non Cardiac Pain or Temp>100.5 Albuterol 2.5 mg 07/01/19 20:16 Proventil IH Q4HRT PRN Shortness Of Breath Aspirin 325 mg 07/02/19 08:00 07/09/19 07:43 Ecotrin PO 325 mg QDAY CASPER Administration Atorvastatin Calcium 40 mg 07/01/19 21:00 07/08/19 22:53 Lipitor PO 40 mg QHS CASPER Administration Bisacodyl 10 mg 07/01/19 20:16 Dulcolax [place] QDAY PRN Constipation Bisacodyl 5 mg 07/08/19 12:19 07/08/19 12:38 Dulcolax PO 5 mg BID PRN Administration Constipation Bumetanide 1 mg 07/07/19 11:00 07/09/19 07:42 Bumex PO 1 mg QDAY CASPER Administration Clonidine HCl 0.2 mg 07/04/19 06:00 07/09/19 16:00 Catapres PO 0.2 mg Q8HR CASPER Administration Clonidine HCl 0.1 mg 07/04/19 06:00 07/09/19 16:02 Catapres PO 0.1 mg Q8HR CASPER Administration Dextrose 50 ml 07/01/19 20:02 D50w (25gm) Syringe IV PRN PRN Hypoglycemia Ferrous Sulfate 325 mg 07/02/19 08:00 07/09/19 07:43 Feosol PO 325 mg QDAY CASPER Administration Folic Acid 1 mg 07/02/19 08:00 07/09/19 07:43 Folvite PO 1 mg QDAY CASPER Administration Heparin Sodium (Porcine) 5,000 unit 07/01/19 22:00 07/09/19 14:35 Heparin SUB-Q Not Given Q8HR CASPER Hydralazine HCl 100 mg 07/02/19 08:00 07/09/19 16:00 Apresoline PO 100 mg TID CASPER Administration Hydralazine HCl 10 mg 07/01/19 20:16 07/09/19 02:43 Apresoline IV 10 mg Q4H PRN Administration Hypertension Insulin Human Lispro 0 unit 07/01/19 22:00 07/09/19 16:12 Humalog SUB-Q 1 unit ACHS CASPER Administration Protocol Labetalol HCl 300 mg 07/01/19 22:00 07/09/19 07:41 Normodyne PO 300 mg BID CASPER Administration Nifedipine 60 mg 07/07/19 18:00 07/09/19 05:49 Procardia Xl PO 60 mg Q12H CASPER Administration Ondansetron HCl 4 mg 07/01/19 20:16 07/06/19 23:20 Zofran Odt PO 4 mg Q8H PRN Administration Nausea And Vomiting Ondansetron HCl 4 mg 07/09/19 11:00 07/09/19 11:29 Zofran IV 4 mg Q6H PRN Administration Nausea And Vomiting Pantoprazole Sodium 20 mg 07/02/19 08:00 07/09/19 07:43 Protonix PO 20 mg QDAY CASPER Administration Polyethylene Glycol 17 gm 07/01/19 20:32 Miralax 3350 PO QDAY PRN Constipation
[2019-07-10] MEDS: HumaLOG SUB-Q SCH ×5 (00:05→23:38)
[2019-07-10] MEDS: CATAPRES PO SCH ×6 (06:07→21:16)
[2019-07-10] MEDS: HEPARIN SUB-Q SCH ×3 (06:07→21:17)
[2019-07-10] MEDS: PROCARDIA XL PO SCH ×2 (06:08→18:16)
[2019-07-10] MEDS: ZOFRAN IV PRN (06:10)
[2019-07-10] MEDS: PROTONIX PO SCH (10:01)
[2019-07-10] MEDS: FEOSOL PO SCH (10:01)
[2019-07-10] MEDS: ECOTRIN PO SCH (10:01)
[2019-07-10] MEDS: FOLVITE PO SCH (10:01)
[2019-07-10] MEDS: NORMODYNE PO SCH ×2 (11:40→21:15)
[2019-07-10] MEDS: BUMEX PO SCH (11:40)
[2019-07-10] MEDS: APRESOLINE PO SCH ×3 (11:41→21:16)
--- NOTE | 2019-07-10 14:46 | Progress Note ---
Assessment and Plan - Patient Problems (1) Chronic kidney disease, stage 4 (severe) Current Visit: Yes Status: Acute Plan to address problem: Kidney function about baseline. Follow-up electrolytes and renal function periodically (2) Heart failure with preserved ejection fraction Current Visit: No Status: Acute Plan to address problem: Appears to be euvolemic. Continue medications (3) Hypertensive chronic kidney disease with stage 1 through stage 4 chronic kidney disease, or unspecified chronic kidney disease Current Visit: No Status: Chronic Plan to address problem: BP improved with increased nifedipine to 60mg po bid and adding bumex 1mg po qd. Follow-up blood pressure on the adjusted medications. (4) Type 2 diabetes mellitus with diabetic chronic kidney disease Current Visit: No Status: Chronic Plan to address problem: Blood sugar management by primary attending (5) Cerebrovascular accident (CVA) Current Visit: Yes Status: Acute Plan to address problem: Continue OT/PT Subjective Date of service: 07/10/19 Principal diagnosis: CVA Interval history: pt awake, alert, in no acute distress Objective - Vital Signs Vital signs: Vital Signs - 12hr 07/10/19 07/10/19 07/10/19 05:20 07:46 08:00 Temperature 98.9 F 98.3 F Pulse Rate 84 75 Respiratory 20 18 Rate Respiratory 18 Rate [Lower Back] Blood Pressure 153/77 137/57 Blood Pressure [Right] O2 Sat by Pulse 96 97 Oximetry 07/10/19 07/10/19 07/10/19 08:50 09:46 10:00 Temperature Pulse Rate 79 80 Respiratory 19 Rate Respiratory 18 Rate [Lower Back] Blood Pressure 110/59 Blood Pressure 94/57 [Right] O2 Sat by Pulse 98 Oximetry 07/10/19 11:40 Temperature Pulse Rate 71 Respiratory Rate Respiratory Rate [Lower Back] Blood Pressure 148/74 Blood Pressure [Right] O2 Sat by Pulse Oximetry - General Appearance General appearance: well-developed, well-nourished, appears stated age EENT: ATNC, PERRL, mucous membranes moist Neck: no JVD Respiratory: Present: Clear to Ascultation Cardiology: regular, S1S2 Gastrointestinal: normoactive bowel sounds Integumentary: no rash, other (no edema ) Neurologic: no focal deficit, alert and oriented x3, strength 5/5, CN 3-12 intact Psychiatric: mood/affect appropriate, cooperative - Lab 07/09/19 12:28 08/28/19 07:11 Most recent lab results Calcium 9.5 mg/dL (8.4-10.2) 07/08/19 07:11 Medications & Allergies - Medications Allergies/Adverse Reactions: Allergies amlodipine besylate [From Norvasc] Allergy (Verified 01/21/14 20:31) Vomiting hydromorphone HCl [From Dilaudid] Allergy (Verified 01/21/14 20:31) Vomiting lisinopril Allergy (Verified 01/21/14 20:31) Unknown Home Medications: Home Medications Medication Instructions Recorded Confirmed Last Taken Type Acetaminophen [Acetaminophen TAB] 650 mg PO Q4H PRN 30 Days tablet 06/21/19 07/02/19 07/01/19 Rx Aspirin EC 325 mg PO QDAY 30 Days tablet 06/21/19 07/02/19 07/01/19 Rx 325 AtorvaSTATin [Lipitor] 40 mg PO QHS 30 Days tablet 06/21/19 07/02/19 07/01/19 Rx 40 Ferrous Sulfate [Feosol 325 MG tab] 325 mg PO QDAY tablet 06/21/19 07/02/19 07/01/19 Rx 325 Folic Acid [Folvite] 1 mg PO QDAY tablet 06/21/19 07/02/19 07/01/19 Rx 1 Ondansetron [Zofran ODT TAB] 4 mg PO Q6H PRN 30 Days tab.rapdis 06/21/19 07/02/19 07/01/19 Rx 4 Clonidine HCl [Catapres] 0.3 mg PO BID 06/27/19 07/02/19 07/01/19 History 0.3 Insulin Glargine [Lantus] 5 units SQ QHS 06/27/19 07/02/19 07/01/19 History 2 Labetalol HCl [Labetalol 300mg TAB] 300 mg PO BID 06/27/19 07/02/19 07/01/19 History 300 hydrALAZINE [Apresoline TAB] 100 mg PO TID 06/27/19 07/02/19 07/01/19 History 325 Lansoprazole Solutab [Prevacid 30 mg FEEDTUBE QDAY tab.rapdis 07/01/19 07/02/19 07/01/19 Rx Solutab] Lipase/Protease/Amylase [Pancreaze 1 each FEEDTUBE PRN PRN capsule 07/01/19 07/02/19 07/01/19 Rx 10,500 Unit] 1 Sennosides Tab [Senokot] 8.6 mg PO Q12H PRN tablet 07/01/19 07/02/19 07/01/19 Rx 8.6 Active Medications: Generic Name Dose Route Start Last Admin Trade Name Freq PRN Reason Stop Dose Admin Acetaminophen 650 mg 07/01/19 20:15 Tylenol PO Q6H PRN Non Cardiac Pain or Temp>100.5 Albuterol 2.5 mg 07/01/19 20:16 Proventil IH Q4HRT PRN Shortness Of Breath Aspirin 325 mg 07/02/19 08:00 07/10/19 10:01 Ecotrin PO 325 mg QDAY CASPER Administration Atorvastatin Calcium 40 mg 07/01/19 21:00 07/09/19 22:36 Lipitor PO 40 mg QHS CASPER Administration Bisacodyl 10 mg 07/01/19 20:16 Dulcolax IA QDAY PRN Constipation Bisacodyl 5 mg 07/08/19 12:19 07/08/19 12:38 Dulcolax PO 5 mg BID PRN Administration Constipation Bumetanide 1 mg 07/07/19 11:00 07/10/19 11:40 Bumex PO 1 mg QDAY CASPER Administration Clonidine HCl 0.2 mg 07/04/19 06:00 07/10/19 06:07 Catapres PO 0.2 mg Q8HR CASPER Administration Clonidine HCl 0.1 mg 07/04/19 06:00 07/10/19 06:07 Catapres PO 0.1 mg Q8HR CASPER Administration Dextrose 50 ml 07/01/19 20:02 D50w (25gm) Syringe IV PRN PRN Hypoglycemia Ferrous Sulfate 325 mg 07/02/19 08:00 07/10/19 10:01 Feosol PO 325 mg QDAY CASPER Administration Folic Acid 1 mg 07/02/19 08:00 07/10/19 10:01 Folvite PO 1 mg QDAY CASPER Administration Heparin Sodium (Porcine) 5,000 unit 07/01/19 22:00 07/10/19 06:07 Heparin SUB-Q Not Given Q8HR [facility] Hydralazine HCl 100 mg 07/02/19 08:00 07/10/19 11:41 Apresoline PO 100 mg TID CASPER Administration Hydralazine HCl 10 mg 07/01/19 20:16 07/09/19 02:43 Apresoline IV 10 mg Q4H PRN Administration Hypertension Insulin Human Lispro 0 unit 07/01/19 22:00 07/10/19 12:48 Humalog SUB-Q 3 unit ACHS CASPER Administration Protocol Labetalol HCl 300 mg 07/01/19 22:00 07/10/19 11:40 Normodyne PO 300 mg BID CASPER Administration Nifedipine 60 mg 07/07/19 18:00 07/10/19 06:08 Procardia Xl PO 60 mg Q12H CASPER Administration Ondansetron HCl 4 mg 07/01/19 20:16 07/06/19 23:20 Zofran Odt PO 4 mg Q8H PRN Administration Nausea And Vomiting Ondansetron HCl 4 mg 07/09/19 11:00 07/10/19 06:10 Zofran IV 4 mg Q6H PRN Administration Nausea And Vomiting Pantoprazole Sodium 20 mg 07/02/19 08:00 07/10/19 10:01 Protonix PO 20 mg QDAY CASPER Administration Polyethylene Glycol 17 gm 07/01/19 20:32 Miralax 3350 PO QDAY PRN Constipation
--- NOTE | 2019-07-10 16:25 | Progress Note ---
Subjective Date of service: 07/10/19 Principal diagnosis: CVA Interval history: 49-year-old female admitted to outside hospital with shortness of breath and dyspnea on exertion. She is found to have a CHF exacerbation and hypertensive urgency with blood pressure 211/104. Cardiology and nephrology consults were placed. Lasix was discontinued due to elevated creatinine and should be restarted once creatinine is less than 3. Patient's baseline creatinine is 2.1- 2.2. Fluid restriction was started at 15 mL per day. Clonidine and hydralazine were both discontinued patient was continued on labetalol and verapamil. She had to iron infusions. Uncertain why patient was taken off of statin but per patient and her PCP advised not to take it. She does have a history of CVA but was only on aspirin. States statin was stopped by [employer] due to pain in left shoulder which was more likely due to tone. Statin was restarted at outside Hospital. We'll discuss secondary stroke prevention with patient made sure that she and family understand her need to continue with the statin. Patient also bernardo s a history of relapsing remitting multiple sclerosis but has not had a flair in 3 years. States she has falls about once a week. Patient is known to the service and was recently discharged to the acute care side of the hospital due to altered mental status, hypertensive emergency and ultimately CVA. Patient is participating in therapy and making reasonable progress. Taking rest breaks as needed. +BM Monitor. Denies pain, palpitations, dyspnea, cough or joint pain. Refusing heparin TID per report - discussed need to take it. Refused labs. Discussed need to have them drawn. BP decreased again this AM. Denies feeling lightheaded. Will monitor on current medications and see how she responds. Will likely decrease clonidine. Working to get BP stable on PO meds before discharge. Will also need to schedule them in a reasonable manner LUE tone stable. SW with discuss with discharge options with family in next few days. Don't plan to d/c for 10 days or so. She may improve to be able to be mostly independent, but not there yet. will monitor All records, vitals, labs and medications were reviewed. No other issues per patient, nursing or therapy. Objective - Exam Narrative Exam: MUSCULOSKELETAL SPECIALTY EXAM CONSTITUTIONAL: Well developed, well nourished, appropriately groomed. RIGHT hand dominant. RESPIRATORY: Clear to auscultation bilaterally, no increased work of breathing CARDIOVASCULAR: Regular Rate/ Rhythm, no swelling, edema or tenderness in BUE or BLE. All extremities warm. GI: + bowel sounds, soft, NTTP, nondistended. INTEGUMENTARY: Normal, no lesion, rash, masses or bruising noted in extremities. MUSCULOSKELETAL: BUE and BLE normal without defect, crepitus, subluxation, effusion, arthritic changes or TTP. SA EF WE EE FF FA HF KE ADF EHL APF R 5/5 overall L 4-/5 4-/5 4-/5 4-/5 4-/5 4-/5 4/5 4/5 4/5 4/5 4/5 ROM decreased on left upper extremity Tone increased on left upper extremity however less than previous NEURO: Left facial droop including eye Sensation intact in all extremities without extinction. No tremor noted in 4 extremities. Follows 2 step commands. Aphasia not appreciated Dysarthria not appreciated, slowed maris with speech with slight slurring occasionally Dysphagia not appreciated Neglect not appreciated POSTURE and GAIT: Sitting posture good. Balance appears reasonable seated. Patient was able to perform a stand pivot transfer with min to mod assist. Gait reasonable with slowed short steps.. PSYCH: Alert, oriented x3, affect appears flattened. Insight appears intact. - Constitutional Vitals: Vital Signs - 12hr 07/10/19 07/10/19 07/10/19 05:20 07:46 08:00 Temperature 37.2 C 36.8 C Pulse Rate 84 75 Respiratory 20 18 Rate Respiratory 18 Rate [Lower Back] Blood Pressure 153/77 137/57 Blood Pressure [Right] O2 Sat by Pulse 96 97 Oximetry 07/10/19 07/10/19 07/10/19 08:50 09:46 10:00 Temperature Pulse Rate 79 80 Respiratory 19 Rate Respiratory 18 Rate [Lower Back] Blood Pressure 110/59 Blood Pressure 94/57 [Right] O2 Sat by Pulse 98 Oximetry 07/10/19 07/10/19 07/10/19 11:34 11:40 15:32 Temperature 36.7 C Pulse Rate 74 71 81 Respiratory 18 Rate Respiratory Rate [Lower Back] Blood Pressure 148/74 148/74 122/68 Blood Pressure [Right] O2 Sat by Pulse 98 97 Oximetry 07/10/19 07/10/19 15:33 15:56 Temperature Pulse Rate 83 83 Respiratory 17 Rate Respiratory Rate [Lower Back] Blood Pressure 122/68 Blood Pressure [Right] O2 Sat by Pulse 99 Oximetry - Allied health notes Allied health notes reviewed: nursing, PT, OT FIMS assessment as documented by PT/OT/ST: Grooming Patient cleans teeth/dentures: Yes Patient young/brushes hair: Yes Patient washes, rinses and Yes dries face: Patient washes, rinses and Yes dries hands: Patient applies make-up: No Patient performs (no make-up/ 02/12 (100%) shaving): Grooming FIM Score 5. Supervision ([place] applies toothpaste or opens containers.) Toileting Toileting Device Commode over Toilet Patient able to: Adjust clothes before,Clean self,Adjust clothes after Patient able to perform: 3/3 (100%) Toileting FIM Score 4. Minimal Assistance (Patient = 75% or more. Needs touching.) Social interaction/Memory/Problem solving Social Interaction FIM Score 4. Minimal Assistance (Interacts appropriately 75-90%.) Memory FIM Score 5. Supervision (Needs cueing <10%, stressful/ unfamiliar situations.) Problem Solving FIM Score 4. Minimal Assistance (Solves routine problems 75-90%.) Transfers Mode of Locomotion: Wheelchair Bed/Chair/Wheelchair Transfers 4. Minimal Assistance (Patient = 75% or more. FIM Score Needs touching.) Toilet Transfers FIM Score 4. Minimal Assistance (Patient = 75% or more. Needs touching.) Patient transferred to: Shower Shower Transfers FIM Score 4. Minimal Assistance (Patient = 75% or more. Needs touching.) Locomotion- Stairs Device used on Stairs Handrail/s Number of Stairs Ascended/ 8 Descended Patient used handrail/support: Yes Stairs FIM Score 2. Maximal Assistance (Patient = 25% or more, 4- 6 stairs.) Locomotion- walk/wheelchair Most Frequent Mode of Wheelchair Locomotion: Ambulation Distance 20 Walking FIM Score 1. Total Assistance (Pt. < 25%, 2 or more person assist, or <50 ft.) Wheelchair Propulsion Distance 55 Wheelchair FIM Score 2. Maximal Assistance (Patient = 25% or more. Minimum of 50 ft.) Eating Eating FIM Score 5. Supervision/Set-Up (Needs help w/ containers, cutting meat, etc.) Dressing-Upper body Patient retrieves clothing No items: Patient applies/removes UE No prosthesis or orthosis: Upper Body Dressing FIM Score 3. Moderate Assistance (Patient = 50% or more) Dressing-lower body Patient retrieves clothing No items: Patient applies/removes LE No prosthesis or orthosis: Lower Body Dressing FIM Score 5. Supv./Set-Up ([place] sets out clothes or applies pros./orth.) - Labs CBC & Chem 7: 07/09/19 12:28 07/08/19 07:11 Labs: Laboratory Results - last 72 hr 07/07/19 07/07/19 07/08/19 17:04 21:43 07:11 WBC RBC Hgb Hct MCV MCH MCHC RDW Plt Count Lymph % (Auto) George % (Auto) Eos % (Auto) Baso % (Auto) Lymph # George # Eos # Baso # Seg Neutrophils % Seg Neutrophils # Sodium 137 Potassium 4.4 Chloride 97.7 L Carbon Dioxide 24 Anion Gap 20 BUN 48 H Creatinine 3.6 H Estimated GFR 16 BUN/Creatinine Ratio 13 Glucose 153 H POC Glucose 103 154 H Calcium 9.5 07/08/19 07/08/19 07/08/19 07:22 11:44 16:14 WBC RBC Hgb Hct MCV MCH MCHC RDW Plt Count Lymph % (Auto) George % (Auto) Eos % (Auto) Baso % (Auto) Lymph # George # Eos # Baso # Seg Neutrophils % Seg Neutrophils # Sodium Potassium Chloride Carbon Dioxide Anion Gap BUN Creatinine Estimated GFR BUN/Creatinine Ratio Glucose POC Glucose 141 H 238 H 183 H Calcium 07/08/19 07/09/19 07/09/19 22:24 07:44 11:42 WBC RBC Hgb Hct MCV MCH MCHC RDW Plt Count Lymph % (Auto) George % (Auto) Eos % (Auto) Baso % (Auto) Lymph # George # Eos # Baso # Seg Neutrophils % Seg Neutrophils # Sodium Potassium Chloride Carbon Dioxide Anion Gap BUN Creatinine Estimated GFR BUN/Creatinine Ratio Glucose POC Glucose 216 H 182 H 188 H Calcium 07/09/19 07/09/19 07/09/19 12:28 16:13 21:46 WBC 6.2 RBC 4.09 Hgb 10.7 Hct 32.7 MCV 80 MCH 26 L MCHC 33 RDW 19.1 H Plt Count 277 Lymph % (Auto) 7.7 L George % (Auto) 5.4 Eos % (Auto) 1.4 Baso % (Auto) 0.2 Lymph # 0.5 L George # 0.3 Eos # 0.1 Baso # 0.0 Seg Neutrophils % 85.3 H Seg Neutrophils # 5.3 Sodium Potassium Chloride Carbon Dioxide Anion Gap BUN Creatinine Estimated GFR BUN/Creatinine Ratio Glucose POC Glucose 174 H 199 H Calcium 07/10/19 07/10/19 07:56 11:46 WBC RBC Hgb Hct MCV MCH MCHC RDW Plt Count Lymph % (Auto) George % (Auto) Eos % (Auto) Baso % (Auto) Lymph # George # Eos # Baso # Seg Neutrophils % Seg Neutrophils # Sodium Potassium Chloride Carbon Dioxide Anion Gap BUN Creatinine Estimated GFR BUN/Creatinine Ratio Glucose POC Glucose 181 H 255 H Calcium Assessment and Plan CVA with Left nondominant hemiplegia: discussed secondary stroke prevention and prognosis. continue medications and monitor for worsening neurologic condition. LUE spasticity: Stretching with OT, continue splinting. CKD with acute exacerbation: avoid nephrotoxic medications, monitor renal function, nephrology consult HTN: continue medications, adjust for normotension, nephrology consulted due to renal component. Q4h vitals. PRN coverage available. Better control now with some lower values, will need better PO control and schedule prior to d/c. DM 2: continue SSI, monitor GLU. A1c was normal. Planned to reduce GLU monitoring based on A1c but she has been running mid to high 200s. Will continue SSI N/V: Zofran available, monitor Z73.6 ADL dysfunction: OT will work on improving ability to perform ADLs (including assistive devices) to increase independence and decrease caregiver burden and improve functional transfers and mobility training. R26.2 Difficulty walking: PT will work on gait training and proper use of assistive devices and advance as appropriate to use of stairs and outside ambulation on uneven surfaces. R26.81 Unsteadiness on feet: PT will work on improving static and dynamic sitting and standing balance as well as proper use of assistive devices to decrease risk of falls. R26.89 Abnormality of gait: PT will work to improve safety and efficiency of gait through neuromotor training and gait training along with instruction on proper use of assistive devices. M62.81 Muscle weakness: PT & OT will work on strengthening exercises to improve functional strength including mixture of closed and open kinetic chain exercises. R53.81 Debility: PT & OT will work on improving overall functional status to improve participation with ADLs, mobility and social involvement. R53.83 Fatigue: PT & OT will work on improving endurance through aerobic exercises and therapeutic activity while monitoring patients tolerance for activity and vital signs as needed. MS: monitor for any worsening symptoms DVT ppx: heparin Pain: Continue physical modalities in therapy and pain medications as needed to achieve functional pain control. Sleep: Monitor and address as needed. Bowel: Monitor and address as needed. PRN meds available Appetite: Monitor and address as needed. Discharge planning: Pending therapy progress and care plan meeting. Will continue discussion with therapy team, SW, patient and family. Restrictions/ Precautions: Falls WB status: FWB Functional Hx: ADLs: Independent Cognition: Independent Mobility: RW Barriers to Discharge: Decreased mobility and ability to perform self care, balance deficits, weakness, spasticity Estimated Length of Stay: 10-14 days Discharge Destination: Home with family, will need some assistance at home, will continue to work towards highest level of independence.
--- NOTE | 2019-07-10 17:55 | Progress Note ---
Assessment and Plan Assessment and plan: Patient is 49-year-old woman with a history of anemia, diabetes, heart failure, stroke, hypertension, COPD, CVA with left side deficit for which she was in [facility] rehabilitation unit from [facility], who was about to be discharge from discharge to the acute Inpatient unit for confusion and elevated blood pressure with systolic BP over 200, inability to talk which began on the weekend per Dr. Singh patient was admitted to the hospital and imaging study showed, Patient Small areas of subacute ischemia are identified in the head of the right caudate nucleus, left parietal white matter and left splenium of the corpus callosum. Patients meds were adjusted and then discharge back to Rehab. * MRI brain without contrast IMPRESSION: Small areas of subacute ischemia are identified in the head of the right caudate nucleus, left parietal white matter and left splenium of the corpus callosum as described. Volume loss. Advanced chronic white matter changes. Chronic focal infarcts in the right zavala radiata and inferior left cerebellum. --Acute ischemic stroke; left-sided weakness Continue therapy as prescribed. Continue ASA and statin, PT and OT rehabilitation --Malignant hypertension;Well controlled, On multiple high-dose antihypertensives and when necessary medications, Closely monitor blood pressures and, adjust doses as needed --Acute metabolic Hypertensive encephalopathy: Improving as blood pressure comes down --Black Tarry stool yesterday resolved, stool for occult blood was negative Patient refused blood tests for H&H --Nausea/vomiting/Acute gastritis: antiemetics,protonix and supportive care In terms improved --CKD stage 4, unchanged, avoid nephrotoxins, nephrology consult --DM Type 2 as patient a1c is 4.9 last month, she has had normal a1c of < 6 since 2017, no need for insulins at this time --Anemia: Continue supportive care --Moderate protein malnutrition, Dietitian consult --Diastolic CHF by history; chronic with no acute excarbation --Dypshagia, continue current diet. No new complaints --Depression, stable and improved -- DVT prophylaxis:Heparin Continue current management Monitor closely and adjust management as needed Plan of care reviewed with the patient and her nurse History Interval history: Patient seen and examined this afternoon in her room and medical records reviewed Patient is very quiet and calm and slightly depressed, denies suicidal thoughts or ideation Says that she's not doing well Coronary episodes of diarrhea or black stool Stool for occult blood was negative yesterday Patient is alert awake oriented Vital signs noted Hospitalist Physical - Constitutional Vitals: Temp Pulse Resp BP Pulse Ox 98.1 F 83 17 122/68 99 07/10/19 11:34 07/10/19 15:56 07/10/19 15:33 07/10/19 15:56 07/10/19 15:33 General appearance: Present: no acute distress, well-nourished, obese - EENT Eyes: Present: PERRL, EOM intact - Neck Neck: Present: supple, normal ROM - Respiratory Respiratory effort: normal Respiratory: bilateral: diminished, negative: rales, rhonchi, wheezing - Cardiovascular Rhythm: regular Heart Sounds: Present: S1 & S2 - Extremities Extremities: no ischemia, No edema - Abdominal General gastrointestinal: soft, non-tender, non-distended, normal bowel sounds - Integumentary Integumentary: Present: clear, warm - Psychiatric Psychiatric: appropriate mood/affect, cooperative - Neurologic Neurologic: other (acute CVA with residual weakness) Results - Labs CBC & Chem 7: 07/09/19 12:28 07/08/19 07:11 Labs: Laboratory Last Values WBC 6.2 K/mm3 (4.5-11.0) 07/09/19 12:28 RBC 4.09 M/mm3 (3.65-5.03) 07/09/19 12:28 Hgb 10.7 gm/dl (10.1-14.3) 07/09/19 12:28 Hct 32.7 % (30.3-42.9) 07/09/19 12:28 MCV 80 fl (79-97) 07/09/19 12:28 MCH 26 pg (28-32) L 07/09/19 12:28 MCHC 33 % (30-34) 07/09/19 12:28 RDW 19.1 % (13.2-15.2) H 07/09/19 12:28 Plt Count 277 K/mm3 (140-440) 07/09/19 12:28 Lymph % (Auto) 7.7 % (13.4-35.0) L 07/09/19 12:28 [place] % (Auto) 5.4 % (0.0-7.3) 07/09/19 12:28 Eos % (Auto) 1.4 % (0.0-4.3) 07/09/19 12:28 Baso % (Auto) 0.2 % (0.0-1.8) 07/09/19 12:28 Lymph # 0.5 K/mm3 (1.2-5.4) L 07/09/19 12:28 [place] # 0.3 K/mm3 (0.0-0.8) 07/09/19 12:28 Eos # 0.1 K/mm3 (0.0-0.4) 07/09/19 12:28 Baso # 0.0 K/mm3 (0.0-0.1) 07/09/19 12:28 Seg Neutrophils % 85.3 % (40.0-70.0) H 07/09/19 12:28 Seg Neutrophils # 5.3 K/mm3 (1.8-7.7) 07/09/19 12:28 Sodium 137 mmol/L (137-145) 07/08/19 07:11 Potassium 4.4 mmol/L (3.6-5.0) 07/08/19 07:11 Chloride 97.7 mmol/L (98-107) L 07/08/19 07:11 Carbon Dioxide 24 mmol/L (22-30) 07/08/19 07:11 20 mmol/L 07/08/19 07:11 BUN 48 mg/dL (7-17) H 07/08/19 07:11 3.6 mg/dL (0.7-1.2) H 07/08/19 07:11 Estimated GFR 16 ml/min 07/08/19 07:11 13 % 07/08/19 07:11 Glucose 153 mg/dL (65-100) H 07/08/19 07:11 POC Glucose 255 (70-105) H 07/10/19 11:46 Calcium 9.5 mg/dL (8.4-10.2) 07/08/19 07:11 Active Medications - Current Medications Current Medications: Generic Name Dose Route Start Last Admin Trade Name Freq PRN Reason Stop Dose Admin Acetaminophen 650 mg 07/01/19 20:15 Tylenol PO Q6H PRN Non Cardiac Pain or Temp>100.5 Albuterol 2.5 mg 07/01/19 20:16 Proventil IH Q4HRT PRN Shortness Of Breath Aspirin 325 mg 07/02/19 08:00 07/10/19 10:01 Ecotrin PO 325 mg QDAY CASPER Administration Atorvastatin Calcium 40 mg 07/01/19 21:00 07/09/19 22:36 Lipitor PO 40 mg QHS CASPER Administration Bisacodyl 10 mg 07/01/19 20:16 Dulcolax GA QDAY PRN Constipation Bisacodyl 5 mg 07/08/19 12:19 07/08/19 12:38 Dulcolax PO 5 mg BID PRN Administration Constipation Bumetanide 1 mg 07/07/19 11:00 07/10/19 11:40 Bumex PO 1 mg QDAY CASPER Administration Clonidine HCl 0.2 mg 07/04/19 06:00 07/10/19 15:56 Catapres PO 0.2 mg Q8HR CASPER Administration Clonidine HCl 0.1 mg 07/04/19 06:00 07/10/19 15:56 Catapres PO 0.1 mg Q8HR CASPER Administration Dextrose 50 ml 07/01/19 20:02 D50w (25gm) Syringe IV PRN PRN Hypoglycemia Ferrous Sulfate 325 mg 07/02/19 08:00 07/10/19 10:01 Feosol PO 325 mg QDAY CASPER Administration Folic Acid 1 mg 07/02/19 08:00 07/10/19 10:01 Folvite PO 1 mg QDAY CASPER Administration Heparin Sodium (Porcine) 5,000 unit 07/01/19 22:00 07/10/19 15:56 Heparin SUB-Q Not Given Q8HR [facility] Hydralazine HCl 100 mg 07/02/19 08:00 07/10/19 15:57 Apresoline PO Not Given TID CASPER Hydralazine HCl 10 mg 07/01/19 20:16 07/09/19 02:43 Apresoline IV 10 mg Q4H PRN Administration Hypertension Insulin Human Lispro 0 unit 07/01/19 22:00 07/10/19 12:48 Humalog SUB-Q 3 unit ACHS CASPER Administration Protocol Labetalol HCl 300 mg 07/01/19 22:00 07/10/19 11:40 Normodyne PO 300 mg BID CASPER Administration Nifedipine 60 mg 07/07/19 18:00 07/10/19 06:08 Procardia Xl PO 60 mg Q12H CASPER Administration Ondansetron HCl 4 mg 07/01/19 20:16 07/06/19 23:20 Zofran Odt PO 4 mg Q8H PRN Administration Nausea And Vomiting Ondansetron HCl 4 mg 07/09/19 11:00 07/10/19 06:10 Zofran IV 4 mg Q6H PRN Administration Nausea And Vomiting Pantoprazole Sodium 20 mg 07/02/19 08:00 07/10/19 10:01 Protonix PO 20 mg QDAY CASPER Administration Polyethylene Glycol 17 gm 07/01/19 20:32 Miralax 3350 PO QDAY PRN Constipation
[2019-07-11] MEDS: HEPARIN SUB-Q SCH ×4 (06:28→22:49)
[2019-07-11] MEDS: CATAPRES PO SCH ×4 (06:35→22:46)
[2019-07-11] MEDS: PROCARDIA XL PO SCH ×2 (06:35→17:53)
--- NOTE | 2019-07-11 08:01 | Progress Note ---
Subjective Date of service: 07/11/19 Principal diagnosis: CVA Interval history: 49-year-old female admitted to outside hospital with shortness of breath and dyspnea on exertion. She is found to have a CHF exacerbation and hypertensive urgency with blood pressure 211/104. Cardiology and nephrology consults were placed. Lasix was discontinued due to elevated creatinine and should be restarted once creatinine is less than 3. Patient's baseline creatinine is 2.1- 2.2. Fluid restriction was started at 15 mL per day. Clonidine and hydralazine were both discontinued patient was continued on labetalol and verapamil. She had to iron infusions. Uncertain why patient was taken off of statin but per patient and her PCP advised not to take it. She does have a history of CVA but was only on aspirin. States statin was stopped by [employer] due to pain in left shoulder which was more likely due to tone. Statin was restarted at outside Hospital. We'll discuss secondary stroke prevention with patient made sure that she and family understand her need to continue with the statin. Patient also bernadro s a history of relapsing remitting multiple sclerosis but has not had a flair in 3 years. States she has falls about once a week. Patient is known to the service and was recently discharged to the acute care side of the hospital due to altered mental status, hypertensive emergency and ultimately CVA. Patient is participating in therapy and making reasonable progress. Taking rest breaks as needed. +BM Monitor. Denies pain, palpitations, dyspnea, cough or joint pain. Refused labs. Discussed need to have them drawn. BMP/CBC ordered, awaiting results. BP better overall with some episodes of lower BP. Decrease clonidine. Working to get BP stable on PO meds before discharge. Will also need to schedule them in a reasonable manner LUE tone stable. Walking improved. Attempting to return to Kevin level if possible to be able to return home safely alone. All records, vitals, labs and medications were reviewed. No other issues per patient, nursing or therapy. Objective - Exam Narrative Exam: MUSCULOSKELETAL SPECIALTY EXAM CONSTITUTIONAL: Well developed, well nourished, appropriately groomed. RIGHT hand dominant. RESPIRATORY: Clear to auscultation bilaterally, no increased work of breathing CARDIOVASCULAR: Regular Rate/ Rhythm, no swelling, edema or tenderness in BUE or BLE. All extremities warm. GI: + bowel sounds, soft, NTTP, nondistended. INTEGUMENTARY: Normal, no lesion, rash, masses or bruising noted in extremities. MUSCULOSKELETAL: BUE and BLE normal without defect, crepitus, subluxation, effusion, arthritic changes or TTP. SA EF WE EE FF FA HF KE ADF EHL APF R 5/5 overall L 4-/5 4-/5 4-/5 4-/5 4-/5 4-/5 4/5 4/5 4/5 4/5 4/5 ROM decreased on left upper extremity Tone increased on left upper extremity however less than previous NEURO: Left facial droop including eye Sensation intact in all extremities without extinction. No tremor noted in 4 extremities. Follows 2 step commands. Aphasia not appreciated Dysarthria not appreciated, slowed maris with speech with slight slurring occasionally Dysphagia not appreciated Neglect not appreciated POSTURE and GAIT: Sitting posture good. Balance appears reasonable seated. Patient was able to p erform a stand pivot transfer with min to mod assist. Gait reasonable with slowed short steps.. PSYCH: Alert, oriented x3, affect appears flattened. Insight appears intact. - Constitutional Vitals: Vital Signs - 12hr 07/10/19 07/10/19 07/10/19 20:29 21:15 21:16 Temperature 37.2 C Pulse Rate 75 75 75 Respiratory 17 Rate Respiratory Rate [Lower Back] Blood Pressure 134/63 134/63 Blood Pressure 131/70 [Right] O2 Sat by Pulse 97 Oximetry 07/10/19 07/10/19 07/11/19 22:00 23:39 01:12 Temperature 37.3 C Pulse Rate 82 89 Respiratory 18 Rate Respiratory 18 Rate [Lower Back] Blood Pressure Blood Pressure 141/69 [Right] O2 Sat by Pulse 97 97 Oximetry 07/11/19 07/11/19 07/11/19 04:20 04:21 06:35 Temperature 37.0 C Pulse Rate 81 79 82 Respiratory 18 Rate Respiratory Rate [Lower Back] Blood Pressure 128/57 132/68 Blood Pressure [Right] O2 Sat by Pulse 98 97 Oximetry 07/11/19 07/11/19 06:36 07:18 Temperature 37.4 C Pulse Rate 82 85 Respiratory 18 Rate Respiratory Rate [Lower Back] Blood Pressure 132/68 116/54 Blood Pressure [Right] O2 Sat by Pulse 96 Oximetry - Allied health notes FIMS assessment as documented by PT/OT/ST: Grooming Patient cleans teeth/dentures: Yes Patient young/brushes hair: Yes Patient washes, rinses and Yes dries face: Patient washes, rinses and Yes dries hands: Patient applies make-up: No Patient performs (no make-up/ 4/4 (100%) shaving): Grooming FIM Score 5. Supervision ([place] applies toothpaste or opens containers.) Toileting Toileting Device Commode over Toilet Patient able to: Adjust clothes before,Clean self,Adjust clothes after Patient able to perform: 3/3 (100%) Toileting FIM Score 4. Minimal Assistance (Patient = 75% or more. Needs touching.) Social interaction/Memory/Problem solving Social Interaction FIM Score 4. Minimal Assistance (Interacts appropriately 75-90%.) Memory FIM Score 5. Supervision (Needs cueing <10%, stressful/ unfamiliar situations.) Problem Solving FIM Score 4. Minimal Assistance (Solves routine problems 75-90%.) Transfers Mode of Locomotion: Wheelchair Bed/Chair/Wheelchair Transfers 4. Minimal Assistance (Patient = 75% or more. FIM Score Needs touching.) Toilet Transfers FIM Score 4. Minimal Assistance (Patient = 75% or more. Needs touching.) Patient transferred to: Shower Shower Transfers FIM Score 4. Minimal Assistance (Patient = 75% or more. Needs touching.) Locomotion- Stairs Device used on Stairs Handrail/s Number of Stairs Ascended/ 8 Descended Patient used handrail/support: Yes Stairs FIM Score 2. Maximal Assistance (Patient = 25% or more, 4- 6 stairs.) Locomotion- walk/wheelchair Most Frequent Mode of Wheelchair Locomotion: Ambulation Distance 20 Walking FIM Score 1. Total Assistance (Pt. < 25%, 2 or more person assist, or <50 ft.) Wheelchair Propulsion Distance 55 Wheelchair FIM Score 2. Maximal Assistance (Patient = 25% or more. Minimum of 50 ft.) Eating Eating FIM Score 5. Supervision/Set-Up (Needs help w/ containers, cutting meat, etc.) Dressing-Upper body Patient retrieves clothing No items: Patient applies/removes UE No prosthesis or orthosis: Upper Body Dressing FIM Score 3. Moderate Assistance (Patient = 50% or more) Dressing-lower body Patient retrieves clothing No items: Patient applies/removes LE No prosthesis or orthosis: Lower Body Dressing FIM Score 5. Supv./Set-Up ([place] sets out clothes or applies pros./orth.) - Labs CBC & Chem 7: 07/13/19 06:38 07/13/19 06:38 Labs: Laboratory Results - last 72 hr 07/08/19 07/08/19 07/08/19 11:44 16:14 22:24 WBC RBC Hgb Hct MCV MCH MCHC RDW Plt Count Lymph % (Auto) [place] % (Auto) Eos % (Auto) Baso % (Auto) Lymph # [place] # Eos # Baso # Seg Neutrophils % Seg Neutrophils # POC Glucose 238 H 183 H 216 H 07/09/19 07/09/19 07/09/19 07:44 11:42 12:28 WBC 6.2 RBC 4.09 Hgb 10.7 Hct 32.7 MCV 80 MCH 26 L MCHC 33 RDW 19.1 H Plt Count 277 Lymph % (Auto) 7.7 L [place] % (Auto) 5.4 Eos % (Auto) 1.4 Baso % (Auto) 0.2 Lymph # 0.5 L [place] # 0.3 Eos # 0.1 Baso # 0.0 Seg Neutrophils % 85.3 H Seg Neutrophils # 5.3 POC Glucose 182 H 188 H 07/09/19 07/09/19 07/10/19 16:13 21:46 07:56 WBC RBC Hgb Hct MCV MCH MCHC RDW Plt Count Lymph % (Auto) [place] % (Auto) Eos % (Auto) Baso % (Auto) Lymph # [place] # Eos # Baso # Seg Neutrophils % Seg Neutrophils # POC Glucose 174 H 199 H 181 H 07/10/19 07/10/19 07/10/19 11:46 18:08 21:51 WBC RBC Hgb Hct MCV MCH MCHC RDW Plt Count Lymph % (Auto) [place] % (Auto) Eos % (Auto) Baso % (Auto) Lymph # [place] # Eos # Baso # Seg Neutrophils % Seg Neutrophils # POC Glucose 255 H 172 H 226 H 07/11/19 07:27 WBC RBC Hgb Hct MCV MCH MCHC RDW Plt Count Lymph % (Auto) [place] % (Auto) Eos % (Auto) Baso % (Auto) Lymph # [place] # Eos # Baso # Seg Neutrophils % Seg Neutrophils # POC Glucose 193 H Assessment and Plan CVA with Left nondominant hemiplegia: discussed secondary stroke prevention and prognosis. continue medications and monitor for worsening neurologic condition. LUE spasticity: Stretching with OT, continue splinting. CKD with acute exacerbation: avoid nephrotoxic medications, monitor renal function, nephrology consult HTN: continue medications, adjust for normotension, nephrology consulted due to renal component. Q4h vitals. PRN coverage available. Better control now with some lower values, will need better PO control and schedule prior to d/c. DM 2: continue SSI, monitor GLU. A1c was normal. Planned to reduce GLU monitoring based on A1c but she has been running mid to high 200s. Will continue SSI N/V: Zofran available, monitor Z73.6 ADL dysfunction: OT will work on improving ability to perform ADLs (including assistive devices) to increase independence and decrease caregiver burden and improve functional transfers and mobility training. R26.2 Difficulty walking: PT will work on gait training and proper use of assistive devices and advance as appropriate to use of stairs and outside ambulation on uneven surfaces. R26.81 Unsteadiness on feet: PT will work on improving static and dynamic sitting and standing balance as well as proper use of assistive devices to decrease risk of falls. R26.89 Abnormality of gait: PT will work to improve safety and efficiency of gait through neuromotor training and gait training along with instruction on proper use of assistive devices. M62.81 Muscle weakness: PT & OT will work on strengthening exercises to improve functional strength including mixture of closed and open kinetic chain exercises. R53.81 Debility: PT & OT will work on improving overall functional status to improve participation with ADLs, mobility and social involvement. R53.83 Fatigue: PT & OT will work on improving endurance through aerobic exercises and therapeutic activity while monitoring patients tolerance for activity and vital signs as needed. MS: monitor for any worsening symptoms DVT ppx: heparin Pain: Continue physical modalities in therapy and pain medications as needed to achieve functional pain control. Sleep: Monitor and address as needed. Bowel: Monitor and address as needed. PRN meds available Appetite: Monitor and address as needed. Discharge planning: Pending therapy progress and care plan meeting. Will co ntinue discussion with therapy team, SW, patient and family. Restrictions/ Precautions: Falls WB status: FWB Functional Hx: ADLs: Independent Cognition: Independent Mobility: RW Barriers to Discharge: Decreased mobility and ability to perform self care, balance deficits, weakness, spasticity Estimated Length of Stay: 10-14 days Discharge Destination: Home with family, will need some assistance at home, will continue to work towards highest level of independence.
--- NOTE | 2019-07-11 09:07 | Progress Note ---
Assessment and Plan - Patient Problems (1) Chronic kidney disease, stage 4 (severe) Current Visit: Yes Status: Acute Plan to address problem: Kidney function about baseline. Follow-up electrolytes and renal function periodically (2) Heart failure with preserved ejection fraction Current Visit: No Status: Acute Plan to address problem: Appears to be euvolemic. Continue medications (3) Hypertensive chronic kidney disease with stage 1 through stage 4 chronic kidney disease, or unspecified chronic kidney disease Current Visit: No Status: Chronic Plan to address problem: BP improved with increased nifedipine to 60mg po bid and adding bumex 1mg po qd. Follow-up blood pressure on the adjusted medications. (4) Type 2 diabetes mellitus with diabetic chronic kidney disease Current Visit: No Status: Chronic Plan to address problem: Blood sugar management by primary attending (5) Cerebrovascular accident (CVA) Current Visit: Yes Status: Acute Plan to address problem: Continue OT/PT Subjective Date of service: 07/11/19 Principal diagnosis: CVA Interval history: pt awake, alert, in no acute distress Objective - Vital Signs Vital signs: Vital Signs - 12hr 07/10/19 07/10/19 07/10/19 21:15 21:16 22:00 Temperature Pulse Rate 75 75 Respiratory Rate Respiratory 18 Rate [Lower Back] Blood Pressure 134/63 134/63 Blood Pressure [Right] O2 Sat by Pulse Oximetry 07/10/19 07/11/19 07/11/19 23:39 01:12 04:20 Temperature 99.1 F 98.6 F Pulse Rate 82 89 81 Respiratory 18 18 Rate Respiratory Rate [Lower Back] Blood Pressure 128/57 Blood Pressure 141/69 [Right] O2 Sat by Pulse 97 97 98 Oximetry 07/11/19 07/11/19 07/11/19 04:21 06:35 06:36 Temperature Pulse Rate 79 82 82 Respiratory Rate Respiratory Rate [Lower Back] Blood Pressure 132/68 132/68 Blood Pressure [Right] O2 Sat by Pulse 97 Oximetry 07/11/19 07:18 Temperature 99.3 F Pulse Rate 85 Respiratory 18 Rate Respiratory Rate [Lower Back] Blood Pressure 116/54 Blood Pressure [Right] O2 Sat by Pulse 96 Oximetry - General Appearance General appearance: well-developed, well-nourished, appears stated age EENT: ATNC, PERRL, mucous membranes moist Neck: no JVD Respiratory: Present: Clear to Ascultation Cardiology: regular, S1S2 Gastrointestinal: normoactive bowel sounds Integumentary: no rash, other (no edema ) Neurologic: no focal deficit, alert and oriented x3, strength 5/5, CN 3-12 intact Psychiatric: mood/affect appropriate, cooperative - Lab 07/09/19 12:28 07/08/19 07:11 Most recent lab results Calcium 9.5 mg/dL (8.4-10.2) 07/08/19 07:11 Medications & Allergies - Medications Allergies/Adverse Reactions: Allergies amlodipine besylate [From Norvasc] Allergy (Verified 01/21/14 20:31) Vomiting hydromorphone HCl [From Dilaudid] Allergy (Verified 01/21/14 20:31) Vomiting lisinopril Allergy (Verified 01/21/14 20:31) Unknown Home Medications: Home Medications Medication Instructions Recorded Confirmed Last Taken Type Acetaminophen [Acetaminophen TAB] 650 mg PO Q4H PRN 30 Days tablet 06/21/19 07/02/19 07/01/19 Rx Aspirin EC 325 mg PO QDAY 30 Days tablet 06/21/19 07/02/19 07/01/19 Rx 325 AtorvaSTATin [Lipitor] 40 mg PO QHS 30 Days tablet 06/21/19 07/02/19 07/01/19 Rx 40 Ferrous Sulfate [Feosol 325 MG tab] 325 mg PO QDAY tablet 06/21/19 07/02/19 07/01/19 Rx 325 Folic Acid [Folvite] 1 mg PO QDAY tablet 06/21/19 07/02/19 07/01/19 Rx 1 Ondansetron [Zofran ODT TAB] 4 mg PO Q6H PRN 30 Days tab.rapdis 06/21/19 07/02/19 07/01/19 Rx 4 Clonidine HCl [Catapres] 0.3 mg PO BID 06/27/19 07/02/19 07/01/19 History 0.3 Insulin Glargine [Lantus] 5 units SQ QHS 06/27/19 07/02/19 07/01/19 History 2 Labetalol HCl [Labetalol 300mg TAB] 300 mg PO BID 06/27/19 07/02/19 07/01/19 H istory 300 hydrALAZINE [Apresoline TAB] 100 mg PO TID 06/27/19 07/02/19 07/01/19 History 325 Lansoprazole Solutab [Prevacid 30 mg FEEDTUBE QDAY tab.rapdis 07/01/19 07/02/19 07/01/19 Rx Solutab] Lipase/Protease/Amylase [Pancreaze 1 each FEEDTUBE PRN PRN capsule 07/01/19 07/02/19 07/01/19 Rx 10,500 Unit] 1 Sennosides Tab [Senokot] 8.6 mg PO Q12H PRN tablet 07/01/19 07/02/19 07/01/19 Rx 8.6 Active Medications: Generic Name Dose Route Start Last Admin Trade Name Freq PRN Reason Stop Dose Admin Acetaminophen 650 mg 07/01/19 20:15 Tylenol PO Q6H PRN Non Cardiac Pain or Temp>100.5 Albuterol 2.5 mg 07/01/19 20:16 Proventil IH Q4HRT PRN Shortness Of Breath Aspirin 325 mg 07/02/19 08:00 07/10/19 10:01 Ecotrin PO 325 mg QDAY CASPER Administration Atorvastatin Calcium 40 mg 07/01/19 21:00 07/10/19 21:16 Lipitor PO 40 mg QHS CASPER Administration Bisacodyl 10 mg 07/01/19 20:16 Dulcolax [place] QDAY PRN Constipation Bisacodyl 5 mg 07/08/19 12:19 07/08/19 12:38 Dulcolax PO 5 mg BID PRN Administration Constipation Bumetanide 1 mg 07/07/19 11:00 07/10/19 11:40 Bumex PO 1 mg QDAY CASPER Administration Clonidine HCl 0.2 mg 07/04/19 06:00 07/11/19 06:35 Catapres PO 0.2 mg Q8HR CASPER Administration Dextrose 50 ml 07/01/19 20:02 D50w (25gm) Syringe IV PRN PRN Hypoglycemia Ferrous Sulfate 325 mg 07/02/19 08:00 07/10/19 10:01 Feosol PO 325 mg QDAY CASPER Administration Folic Acid 1 mg 07/02/19 08:00 07/10/19 10:01 Folvite PO 1 mg QDAY CASPER Administration Heparin Sodium (Porcine) 5,000 unit 07/01/19 22:00 07/11/19 06:28 Heparin SUB-Q Not Given Q8HR CASPER Hydralazine HCl 100 mg 07/02/19 08:00 07/10/19 21:16 Apresoline PO 100 mg TID CASPER Administration Hydralazine HCl 10 mg 07/01/19 20:16 07/09/19 02:43 Apresoline IV 10 mg Q4H PRN Administration Hypertension Insulin Human Lispro 0 unit 07/01/19 22:00 07/10/19 23:38 Humalog SUB-Q 2 unit ACHS CASPER Administration Protocol Labetalol HCl 300 mg 07/01/19 22:00 07/10/19 21:15 Normodyne PO 300 mg BID CASPER Administration Nifedipine 60 mg 07/07/19 18:00 07/11/19 06:35 Procardia Xl PO 60 mg Q12H CASPER Administration Ondansetron HCl 4 mg 07/01/19 20:16 07/06/19 23:20 Zofran Odt PO 4 mg Q8H PRN Administration Nausea And Vomiting Ondansetron HCl 4 mg 07/09/19 11:00 07/10/19 06:10 Zofran IV 4 mg Q6H PRN Administration Nausea And Vomiting Pantoprazole Sodium 20 mg 07/02/19 08:00 07/10/19 10:01 Protonix PO 20 mg QDAY CASPER Administration Polyethylene Glycol 17 gm 07/01/19 20:32 Miralax 3350 PO QDAY PRN Constipation
[2019-07-11] MEDS: HumaLOG SUB-Q SCH ×4 (09:24→22:45)
[2019-07-11] MEDS: FOLVITE PO SCH (09:25)
[2019-07-11] MEDS: ECOTRIN PO SCH (09:25)
[2019-07-11] MEDS: FEOSOL PO SCH (09:25)
[2019-07-11] MEDS: PROTONIX PO SCH (09:26)
[2019-07-11] MEDS: NORMODYNE PO SCH ×2 (09:34→22:46)
[2019-07-11] MEDS: APRESOLINE PO SCH ×3 (09:35→22:46)
[2019-07-11] MEDS: BUMEX PO SCH (09:35)
--- NOTE | 2019-07-11 12:50 | Progress Note ---
Assessment and Plan Assessment and plan: Patient is 49-year-old woman with a history of anemia, diabetes, heart failure, stroke, hypertension, COPD, CVA with left side deficit for which she was in [facility] rehabilitation unit from [facility] [place], who was about to be discharge from discharge to the acute Inpatient unit for confusion and elevated blood pressure with systolic BP over 200, inability to talk which began on the weekend per Dr. Singh patient was admitted to the hospital and imaging study showed, Patient Small areas of subacute ischemia are identified in the head of the right caudate nucleus, left parietal white matter and left splenium of the corpus callosum. Patients meds were adjusted and then discharge back to Rehab. * MRI brain without contrast IMPRESSION: Small areas of subacute ischemia are identified in the head of the right caudate nucleus, left parietal white matter and left splenium of the corpus callosum as described. Volume loss. Advanced chronic white matter changes. Chronic focal infarcts in the right zavala radiata and inferior left cerebellum. --Acute ischemic stroke; left-sided weakness Continue therapy as prescribed. Continue ASA and statin, PT and OT rehabilitation --Malignant hypertension;Well controlled, On multiple high-dose antihypertensives and when necessary medications, Closely monitor blood pressures and, adjust doses as needed --Acute metabolic Hypertensive encephalopathy: Improving as blood pressure comes down --Black Tarry stool 07/10 resolved, stool for occult blood was negative Patient refused blood tests for H&H --Nausea/vomiting/Acute gastritis: antiemetics,protonix and supportive care In terms improved --CKD stage 4, unchanged, avoid nephrotoxins, nephrology consult --DM Type 2 as patient a1c is 4.9 last month, she has had normal a1c of < 6 since 2017, no need for insulins at this time --Anemia: Continue supportive care --Moderate protein malnutrition, Dietitian consult --Diastolic CHF by history; chronic with no acute excarbation --Dypshagia, continue current diet. No new complaints --Depression, stable and improved -- DVT prophylaxis:Heparin Continue current management Monitor closely and adjust management as needed Plan of care reviewed with the patient and her nurse History Interval history: Patient with acute stroke Poor appetite Hospitalist Physical - Physical exam Narrative exam: Gen: Not in acute distress, lying in bed, HEENT: Normocephalic, atraumatic Neck: supple, no JVD Heart: S1 and S2 reg, tachy, no murmurs, rubs or gallop Lungs: Clear to auscultation, no rhonchi, no wheeze Abd: soft, non tender, non distended, normal BS, Ext: No edema, no clubbing, no cyanosis Neuro: Awake, alert, oriented X 3, Residual left sided weakness - Constitutional Vitals: Temp Pulse Resp BP Pulse Ox 99.3 F 76 18 122/62 96 07/11/19 07:18 07/11/19 09:34 07/11/19 07:18 07/11/19 09:34 07/11/19 07:18 General appearance: Present: no acute distress, obese Results - Labs CBC & Chem 7: 07/11/19 15:30 07/11/19 15:30 Labs: Laboratory Last Values WBC 6.2 K/mm3 (4.5-11.0) 07/09/19 12:28 RBC 4.09 M/mm3 (3.65-5.03) 07/09/19 12:28 Hgb 10.7 gm/dl (10.1-14.3) 07/09/19 12:28 Hct 32.7 % (30.3-42.9) 07/09/19 12:28 MCV 80 fl (79-97) 07/09/19 12:28 MCH 26 pg (28-32) L 07/09/19 12:28 MCHC 33 % (30-34) 07/09/19 12:28 RDW 19.1 % (13.2-15.2) H 07/09/19 12:28 Plt Count 277 K/mm3 (140-440) 07/09/19 12:28 Lymph % (Auto) 7.7 % (13.4-35.0) L 07/09/19 12:28 [place] % (Auto) 5.4 % (0.0-7.3) 07/09/19 12:28 Eos % (Auto) 1.4 % (0.0-4.3) 07/09/19 12:28 Baso % (Auto) 0.2 % (0.0-1.8) 07/09/19 12:28 Lymph # 0.5 K/mm3 (1.2-5.4) L 07/09/19 12:28 [place] # 0.3 K/mm3 (0.0-0.8) 07/09/19 12:28 Eos # 0.1 K/mm3 (0.0-0.4) 07/09/19 12:28 Baso # 0.0 K/mm3 (0.0-0.1) 07/09/19 12:28 Seg Neutrophils % 85.3 % (40.0-70.0) H 07/09/19 12:28 Seg Neutrophils # 5.3 K/mm3 (1.8-7.7) 07/09/19 12:28 Sodium 137 mmol/L (137-145) 07/08/19 07:11 Potassium 4.4 mmol/L (3.6-5.0) 07/08/19 07:11 Chloride 97.7 mmol/L (98-107) L 07/08/19 07:11 Carbon Dioxide 24 mmol/L (22-30) 07/08/19 07:11 20 mmol/L 07/08/19 07:11 BUN 48 mg/dL (7-17) H 07/08/19 07:11 3.6 mg/dL (0.7-1.2) H 07/08/19 07:11 Estimated GFR 16 ml/min 07/08/19 07:11 13 % 07/08/19 07:11 Glucose 153 mg/dL (65-100) H 07/08/19 07:11 POC Glucose 226 (70-105) H 07/11/19 11:52 Calcium 9.5 mg/dL (8.4-10.2) 07/08/19 07:11 Active Medications - Current Medications Current Medications: Generic Name Dose Route Start Last Admin Trade Name Freq PRN Reason Stop Dose Admin Acetaminophen 650 mg 07/01/19 20:15 Tylenol PO Q6H PRN Non Cardiac Pain or Temp>100.5 Albuterol 2.5 mg 07/01/19 20:16 Proventil IH Q4HRT PRN Shortness Of Breath Aspirin 325 mg 07/02/19 08:00 07/11/19 09:25 Ecotrin PO 325 mg QDAY CASPER Administration Atorvastatin Calcium 40 mg 07/01/19 21:00 07/10/19 21:16 Lipitor PO 40 mg QHS CASPER Administration Bisacodyl 10 mg 07/01/19 20:16 Dulcolax PA QDAY PRN Constipation Bisacodyl 5 mg 07/08/19 12:19 07/08/19 12:38 Dulcolax PO 5 mg BID PRN Administration Constipation Bumetanide 1 mg 07/07/19 11:00 07/11/19 09:35 Bumex PO 1 mg QDAY CASPER Administration Clonidine HCl 0.2 mg 07/04/19 06:00 07/11/19 06:35 Catapres PO 0.2 mg Q8HR CASPER Administration Dextrose 50 ml 07/01/19 20:02 D50w (25gm) Syringe IV PRN PRN Hypoglycemia Ferrous Sulfate 325 mg 07/02/19 08:00 07/11/19 09:25 Feosol PO 325 mg QDAY CASPER Administration Folic Acid 1 mg 07/02/19 08:00 07/11/19 09:25 Folvite PO 1 mg QDAY CASPER Administration Heparin Sodium (Porcine) 5,000 unit 07/01/19 22:00 07/11/19 06:28 Heparin SUB-Q Not Given Q8HR CASPER Hydralazine HCl 100 mg 07/02/19 08:00 07/11/19 09:35 Apresoline PO 100 mg TID CASPER Administration Hydralazine HCl 10 mg 07/01/19 20:16 07/09/19 02:43 Apresoline IV 10 mg Q4H PRN Administration Hypertension Insulin Human Lispro 0 unit 07/01/19 22:00 07/11/19 12:21 Humalog SUB-Q 2 unit ACHS CASPER Administration Protocol Labetalol HCl 300 mg 07/01/19 22:00 07/11/19 09:34 Normodyne PO 300 mg BID CASPER Administration Nifedipine 60 mg 07/07/19 18:00 07/11/19 06:35 Procardia Xl PO 60 mg Q12H CASPER Administration Ondansetron HCl 4 mg 07/01/19 20:16 07/06/19 23:20 Zofran Odt PO 4 mg Q8H PRN Administration Nausea And Vomiting Ondansetron HCl 4 mg 07/09/19 11:00 07/10/19 06:10 Zofran IV 4 mg Q6H PRN Administration Nausea And Vomiting Pantoprazole Sodium 20 mg 07/02/19 08:00 07/11/19 09:26 Protonix PO 20 mg QDAY CASPER Administration Polyethylene Glycol 17 gm 07/01/19 20:32 Miralax 3350 PO QDAY PRN Constipation
[2019-07-11 15:55] LABS: Hematocrit 31.7 % (30.3-42.9); Hemoglobin 10.3 gm/dl (10.1-14.3); Mean Corpuscular HGB Conc 33 % (30-34); Mean Corpuscular Volume 81 fl (79-97); Platelet Count 263 K/mm3 (140-440); Red Blood Count 3.93 M/mm3 (3.65-5.03); Red Cell Distribution Width 19.2 % (13.2-15.2)
[2019-07-11 16:15] LABS: Calcium 8.9 mg/dL (8.4-10.2)
[2019-07-12] MEDS: HEPARIN SUB-Q SCH ×3 (05:48→21:19)
[2019-07-12] MEDS: CATAPRES PO SCH ×3 (05:49→21:18)
[2019-07-12] MEDS: PROCARDIA XL PO SCH ×2 (06:03→17:28)
[2019-07-12] MEDS: APRESOLINE PO SCH ×3 (08:30→21:17)
[2019-07-12] MEDS: ECOTRIN PO SCH (08:56)
[2019-07-12] MEDS: BUMEX PO SCH (08:57)
[2019-07-12] MEDS: FOLVITE PO SCH (08:57)
[2019-07-12] MEDS: PROTONIX PO SCH (08:57)
[2019-07-12] MEDS: FEOSOL PO SCH (08:57)
[2019-07-12] MEDS: HumaLOG SUB-Q SCH ×4 (08:58→22:07)
--- NOTE | 2019-07-12 11:16 | Progress Note ---
Assessment and Plan Assessment and plan: Patient is 49-year-old woman with a history of anemia, diabetes, heart failure, stroke, hypertension, COPD, CVA with left side deficit for which she was in [facility] rehabilitation unit from [facility], who was about to be discharge from discharge to the acute Inpatient unit for confusion and elevated blood pressure with systolic BP over 200, inability to talk which began on the weekend per Dr. Singh patient was admitted to the hospital and imaging study showed, Patient Small areas of subacute ischemia are identified in the head of the right caudate nucleus, left parietal white matter and left splenium of the corpus callosum. Patients meds were adjusted and then discharge back to Rehab. * MRI brain without contrast IMPRESSION: Small areas of subacute ischemia are identified in the head of the right caudate nucleus, left parietal white matter and left splenium of the corpus callosum as described. Volume loss. Advanced chronic white matter changes. Chronic focal infarcts in the right zavala radiata and inferior left cerebellum. --Acute ischemic stroke; left-sided weakness Continue therapy as prescribed. Continue ASA and statin, PT and OT rehabilitation --Malignant hypertension;Well controlled, On multiple high-dose antihypertensives and when necessary medications, Closely monitor blood pressures and, adjust doses as needed --Acute metabolic Hypertensive encephalopathy: Improving as blood pressure comes down --[place] stool 07/10 resolved, stool for occult blood was negative Patient refused blood tests for H&H --Nausea/vomiting/Acute gastritis: antiemetics,protonix and supportive care In terms improved --CKD stage 4, unchanged, avoid nephrotoxins, nephrology following --DM Type 2 as patient a1c is 4.9 last month, she has had normal a1c of < 6 since 2017, no need for insulins at this time --Anemia: Continue supportive care --Moderate protein malnutrition, Dietitian consult --Diastolic CHF by history; chronic with no acute excarbation --Dypshagia, continue current diet. No new complaints --Depression, stable and improved -- DVT prophylaxis:Heparin Continue current management Monitor closely and adjust management as needed Plan of care reviewed with the patient and her nurse History Interval history: Patient with acute stroke Poor appetite Hospitalist Physical - Physical exam Narrative exam: Gen: Not in acute distress, lying in bed, HEENT: Normocephalic, atraumatic Neck: supple, no JVD Heart: S1 and S2 reg, tachy, no murmurs, rubs or gallop Lungs: Clear to auscultation, no rhonchi, no wheeze Abd: soft, non tender, non distended, normal BS, Ext: No edema, no clubbing, no cyanosis Neuro: Awake, alert, oriented X 3, Residual left sided weakness - Constitutional Vitals: Temp Pulse Resp BP Pulse Ox 98.0 F 74 16 135/57 99 07/12/19 08:16 07/12/19 08:16 07/12/19 08:16 07/12/19 08:16 07/12/19 08:16 General appearance: Present: no acute distress, obese Results - Labs CBC & Chem 7: 07/11/19 15:30 07/11/19 15:30 Labs: Laboratory Last Values WBC 11.4 K/mm3 (4.5-11.0) H 07/11/19 15:30 RBC 3.93 M/mm3 (3.65-5.03) 07/11/19 15:30 Hgb 10.3 gm/dl (10.1-14.3) 07/11/19 15:30 Hct 31.7 % (30.3-42.9) 07/11/19 15:30 MCV 81 fl (79-97) 07/11/19 15:30 MCH 26 pg (28-32) L 07/11/19 15:30 MCHC 33 % (30-34) 07/11/19 15:30 RDW 19.2 % (13.2-15.2) H 07/11/19 15:30 Plt Count 263 K/mm3 (140-440) 07/11/19 15:30 Lymph % (Auto) 7.7 % (13.4-35.0) L 07/09/19 12:28 [place] % (Auto) 5.4 % (0.0-7.3) 07/09/19 12:28 Eos % (Auto) 1.4 % (0.0-4.3) 07/09/19 12:28 Baso % (Auto) 0.2 % (0.0-1.8) 07/09/19 12:28 Lymph # 0.5 K/mm3 (1.2-5.4) L 07/09/19 12:28 [place] # 0.3 K/mm3 (0.0-0.8) 07/09/19 12:28 Eos # 0.1 K/mm3 (0.0-0.4) 07/09/19 12:28 Baso # 0.0 K/mm3 (0.0-0.1) 07/09/19 12:28 Seg Neutrophils % 85.3 % (40.0-70.0) H 07/09/19 12:28 Seg Neutrophils # 5.3 K/mm3 (1.8-7.7) 07/09/19 12:28 Sodium 135 mmol/L (137-145) L 07/11/19 15:30 Potassium 4.5 mmol/L (3.6-5.0) 07/11/19 15:30 Chloride 97.7 mmol/L (98-107) L 07/11/19 15:30 Carbon Dioxide 21 mmol/L (22-30) L 07/11/19 15:30 21 mmol/L 07/11/19 15:30 BUN 57 mg/dL (7-17) H 07/11/19 15:30 4.7 mg/dL (0.7-1.2) H 07/11/19 15:30 Estimated GFR 12 ml/min 07/11/19 15:30 12 % 07/11/19 15:30 Glucose 126 mg/dL (65-100) H 07/11/19 15:30 POC Glucose 176 (70-105) H 07/12/19 07:41 Calcium 8.9 mg/dL (8.4-10.2) 07/11/19 15:30 Active Medications - Current Medications Current Medications: Generic Name Dose Route Start Last Admin Trade Name Freq PRN Reason Stop Dose Admin Acetaminophen 650 mg 07/01/19 20:15 Tylenol PO Q6H PRN Non Cardiac Pain or Temp>100.5 Albuterol 2.5 mg 07/01/19 20:16 Proventil IH Q4HRT PRN Shortness Of Breath Aspirin 325 mg 07/02/19 08:00 07/12/19 08:56 Ecotrin PO 325 mg QDAY CASPER Administration Atorvastatin Calcium 40 mg 07/01/19 21:00 07/11/19 23:02 Lipitor PO 40 mg QHS CASPER Administration Bisacodyl 10 mg 07/01/19 20:16 Dulcolax [place] QDAY PRN Constipation Bisacodyl 5 mg 07/08/19 12:19 07/08/19 12:38 Dulcolax PO 5 mg BID PRN Administration Constipation Bumetanide 1 mg 07/07/19 11:00 07/12/19 08:57 Bumex PO 1 mg QDAY CASPER Administration Clonidine HCl 0.2 mg 07/04/19 06:00 07/12/19 05:49 Catapres PO 0.2 mg Q8HR CASPER Administration Dextrose 50 ml 07/01/19 20:02 D50w (25gm) Syringe IV PRN PRN Hypoglycemia Ferrous Sulfate 325 mg 07/02/19 08:00 07/12/19 08:57 Feosol PO 325 mg QDAY CASPER Administration Folic Acid 1 mg 07/02/19 08:00 07/12/19 08:57 Folvite PO 1 mg QDAY CASPER Administration Heparin Sodium (Porcine) 5,000 unit 07/01/19 22:00 07/12/19 05:48 Heparin SUB-Q Not Given Q8HR CASPER Hydralazine HCl 100 mg 07/02/19 08:00 07/11/19 22:46 Apresoline PO 100 mg TID CASPER Administration Hydralazine HCl 10 mg 07/01/19 20:16 07/09/19 02:43 Apresoline IV 10 mg Q4H PRN Administration Hypertension Insulin Human Lispro 0 unit 07/01/19 22:00 07/12/19 08:58 Humalog SUB-Q 1 unit ACHS CASPER Administration Protocol Labetalol HCl 300 mg 07/01/19 22:00 07/11/19 22:46 Normodyne PO 300 mg BID CASPER Administration Nifedipine 60 mg 07/07/19 18:00 07/12/19 06:03 Procardia Xl PO 60 mg Q12H CASPER Administration Ondansetron HCl 4 mg 07/01/19 20:16 07/06/19 23:20 Zofran Odt PO 4 mg Q8H PRN Administration Nausea And Vomiting Ondansetron HCl 4 mg 07/09/19 11:00 07/10/19 06:10 Zofran IV 4 mg Q6H PRN Administration Nausea And Vomiting Pantoprazole Sodium 20 mg 07/02/19 08:00 07/12/19 08:57 Protonix PO 20 mg QDAY CASPER Administration Polyethylene Glycol 17 gm 07/01/19 20:32 Miralax 3350 PO QDAY PRN Constipation
[2019-07-12] MEDS: NORMODYNE PO SCH ×2 (12:19→21:18)
--- NOTE | 2019-07-12 14:47 | Progress Note ---
Assessment and Plan - Patient Problems (1) Chronic kidney disease, stage 4 (severe) Current Visit: Yes Status: Acute Plan to address problem: Kidney function marginally decreased, will hold bumex. avoid nephrotoxins, NSAIDs, IV contrast. Follow-up electrolytes and renal function periodically (2) Heart failure with preserved ejection fraction Current Visit: No Status: Acute Plan to address problem: Appears to be euvolemic. Continue medications (3) Hypertensive chronic kidney disease with stage 1 through stage 4 chronic kidney disease, or unspecified chronic kidney disease Current Visit: No Status: Chronic Plan to address problem: BP improved on current meds. will hold bumex given marginally declined eGFR. Follow-up blood pressure on the adjusted medications. (4) Type 2 diabetes mellitus with diabetic chronic kidney disease Current Visit: No Status: Chronic Plan to address problem: Blood sugar management by primary attending (5) Cerebrovascular accident (CVA) Current Visit: Yes Status: Acute Plan to address problem: Continue OT/PT Subjective Date of service: 07/12/19 Principal diagnosis: CVA Interval history: pt awake, alert, in no acute distress Objective - Vital Signs Vital signs: Vital Signs - 12hr 07/12/19 07/12/19 07/12/19 04:42 04:43 05:49 Temperature 98.7 F Pulse Rate 80 82 80 Respiratory 16 Rate Blood Pressure 133/65 133/65 Blood Pressure [Right] O2 Sat by Pulse 98 98 Oximetry 07/12/19 07/12/19 07/12/19 08:16 11:30 14:11 Temperature 98.0 F 98 F Pulse Rate 74 69 Respiratory 16 18 Rate Blood Pressure 135/57 142/64 Blood Pressure 140/63 [Right] O2 Sat by Pulse 99 98 Oximetry - General Appearance General appearance: well-developed, well-nourished, appears stated age EENT: ATNC, PERRL, mucous membranes moist Neck: no JVD Respiratory: Present: Clear to Ascultation Cardiology: regular, S1S2 Gastrointestinal: normoactive bowel sounds Integumentary: no rash Neurologic: alert and oriented x3, strength 5/5, facial droop Psychiatric: mood/affect appropriate, cooperative - Lab 07/11/19 15:30 07/11/19 15:30 Most recent lab results Calcium 8.9 mg/dL (8.4-10.2) 07/11/19 15:30 Medications & Allergies - Medications Allergies/Adverse Reactions: Allergies amlodipine besylate [From Norvasc] Allergy (Verified 01/21/14 20:31) Vomiting hydromorphone HCl [From Dilaudid] Allergy (Verified 01/21/14 20:31) Vomiting lisinopril Allergy (Verified 01/21/14 20:31) Unknown Home Medications: Home Medications Medication Instructions Recorded Confirmed Last Taken Type Acetaminophen [Acetaminophen TAB] 650 mg PO Q4H PRN 30 Days tablet 06/21/19 07/02/19 07/01/19 Rx Aspirin EC 325 mg PO QDAY 30 Days tablet 06/21/19 07/02/19 07/01/19 Rx 325 AtorvaSTATin [Lipitor] 40 mg PO QHS 30 Days tablet 06/21/19 07/02/19 07/01/19 Rx 40 Ferrous Sulfate [Feosol 325 MG tab] 325 mg PO QDAY tablet 06/21/19 07/02/19 07/01/19 Rx 325 Folic Acid [Folvite] 1 mg PO QDAY tablet 06/21/19 07/02/19 07/01/19 Rx 1 Ondansetron [Zofran ODT TAB] 4 mg PO Q6H PRN 30 Days tab.rapdis 06/21/1907/01/19 Rx 4 Clonidine HCl [Catapres] 0.3 mg PO BID 06/27/19 07/02/19 07/01/19 History 0.3 Insulin Glargine [Lantus] 5 units SQ QHS 06/27/19 07/02/19 07/01/19 History 2 Labetalol HCl [Labetalol 300mg TAB] 300 mg PO BID 06/27/19 07/02/19 07/01/19 History 300 hydrALAZINE [Apresoline TAB] 100 mg PO TID 06/27/19 07/02/19 07/01/19 History 325 Lansoprazole Solutab [Prevacid 30 mg FEEDTUBE QDAY tab.rapdis 07/01/19 07/02/19 07/01/19 Rx Solutab] Lipase/Protease/Amylase [Pancreaze 1 each FEEDTUBE PRN PRN capsule 07/01/19 07/02/19 07/01/[address] 10,500 Unit] 1 Sennosides Tab [Senokot] 8.6 mg PO Q12H PRN tablet 07/01/19 07/02/19 07/01/19 Rx 8.6 Active Medications: Generic Name Dose Route Start Last Admin Trade Name Freq PRN Reason Stop Dose Admin Acetaminophen 650 mg 07/01/19 20:15 Tylenol PO Q6H PRN Non Cardiac Pain or Temp>100.5 Albuterol 2.5 mg 07/01/19 20:16 Proventil IH Q4HRT PRN Shortness Of Breath Aspirin 325 mg 07/02/19 08:00 07/12/19 08:56 Ecotrin PO 325 mg QDAY [facility] Administration Atorvastatin Calcium 40 mg 07/01/19 21:00 07/11/19 23:02 Lipitor PO 40 mg QHS [facility] Administration Bisacodyl 10 mg 07/01/19 20:16 Dulcolax [place] QDAY PRN Constipation Bisacodyl 5 mg 07/08/19 12:19 07/08/19 12:38 Dulcolax PO 5 mg BID PRN Administration Constipation Clonidine HCl 0.2 mg 07/04/19 06:00 07/12/19 05:49 Catapres PO 0.2 mg Q8HR [facility] Administration Dextrose 50 ml 07/01/19 20:02 D50w (25gm) Syringe IV PRN PRN Hypoglycemia Ferrous Sulfate 325 mg 07/02/19 08:00 07/12/19 08:57 Feosol PO 325 mg QDAY [facility] Administration Folic Acid 1 mg 07/02/19 08:00 07/12/19 08:57 Folvite PO 1 mg QDAY [facility] Administration Heparin Sodium (Porcine) 5,000 unit 07/01/19 22:00 07/12/19 05:48 Heparin SUB-Q Not Given Q8HR [facility] Hydralazine HCl 100 mg 07/02/19 08:00 07/12/19 08:30 Apresoline PO Not Given TID [facility] Hydralazine HCl 10 mg 07/01/19 20:16 07/09/19 02:43 Apresoline IV 10 mg Q4H PRN Administration Hypertension Insulin Human Lispro 0 unit 07/01/19 22:00 07/12/19 12:27 Humalog SUB-Q Not Given ACHS [facility] Protocol Labetalol HCl 300 mg 07/01/19 22:00 07/12/19 12:19 Normodyne PO 300 mg BID [facility] Administration Nifedipine 60 mg 07/07/19 18:00 07/12/19 06:03 Procardia Xl PO 60 mg Q12H [facility] Administration Ondansetron HCl 4 mg 07/01/19 20:16 07/06/19 23:20 Zofran Odt PO 4 mg Q8H PRN Administration Nausea And Vomiting Ondansetron HCl 4 mg 07/09/19 11:00 07/10/19 06:10 Zofran IV 4 mg Q6H PRN Administration Nausea And Vomiting Pantoprazole Sodium 20 mg 07/02/19 08:00 07/12/19 08:57 Protonix PO 20 mg QDAY [facility] Administration Polyethylene Glycol 17 gm 07/01/19 20:32 Miralax 3350 PO QDAY PRN Constipation
[2019-07-13] MEDS: PROCARDIA XL PO SCH ×2 (05:33→18:22)
[2019-07-13] MEDS: CATAPRES PO SCH ×3 (05:34→21:13)
[2019-07-13] MEDS: HEPARIN SUB-Q SCH ×3 (05:49→21:14)
[2019-07-13 07:21] LABS: Hematocrit 32.8 % (30.3-42.9); Hemoglobin 10.6 gm/dl (10.1-14.3); Mean Corpuscular HGB Conc 32 % (30-34); Mean Corpuscular Volume 83 fl (79-97); Platelet Count 301 K/mm3 (140-440); Red Blood Count 3.96 M/mm3 (3.65-5.03); Red Cell Distribution Width 19.1 % (13.2-15.2)
[2019-07-13 07:32] LABS: Calcium 9.3 mg/dL (8.4-10.2)
--- NOTE | 2019-07-13 08:02 | Progress Note ---
Assessment and Plan - Patient Problems (1) Chronic kidney disease, stage 4 (severe) Current Visit: Yes Status: Acute Plan to address problem: Kidney function marginally decreased, cont. to hold bumex. avoid nephrotoxins, NSAIDs, IV contrast. Follow-up electrolytes and renal function periodically. no acute indication for renal replacement therapy at present (2) Heart failure with preserved ejection fraction Current Visit: No Status: Acute Plan to address problem: Appears to be euvolemic. Continue medications (3) Hypertensive chronic kidney disease with stage 1 through stage 4 chronic kidney disease, or unspecified chronic kidney disease Current Visit: No Status: Chronic Plan to address problem: BP improved on current meds. holding bumex given marginally declined eGFR. Follow-up blood pressure on the adjusted medications. (4) Type 2 diabetes mellitus with diabetic chronic kidney disease Current Visit: No Status: Chronic Plan to address problem: Blood sugar management by primary attending (5) Cerebrovascular accident (CVA) Current Visit: Yes Status: Acute Plan to address problem: Continue OT/PT Subjective Date of service: 07/13/19 Principal diagnosis: CVA Interval history: pt awake, alert, in no acute distress Objective - Vital Signs Vital signs: Vital Signs - 12hr 07/12/19 07/12/19 07/12/19 20:23 20:37 23:59 Temperature 97.8 F 98.5 F Pulse Rate 76 76 73 Respiratory 20 20 18 Rate Blood Pressure 101/64 130/73 Blood Pressure 101/64 [Right] O2 Sat by Pulse 98 98 100 Oximetry 07/13/19 07/13/19 07/13/19 00:00 00:16 04:23 Temperature 98.5 F Pulse Rate 75 69 78 Respiratory 18 18 Rate Blood Pressure 135/67 Blood Pressure [Right] O2 Sat by Pulse 99 99 98 Oximetry 07/13/19 07/13/19 07/13/19 04:24 05:34 07:17 Temperature 97.9 F Pulse Rate 76 77 Respiratory 20 Rate Blood Pressure 135/67 141/79 Blood Pressure [Right] O2 Sat by Pulse 99 100 Oximetry - General Appearance General appearance: well-developed, well-nourished, appears stated age EENT: ATNC, PERRL, mucous membranes moist Neck: no JVD Respiratory: Present: Clear to Ascultation Cardiology: regular, S1S2 Gastrointestinal: normoactive bowel sounds Integumentary: no rash, other (no edema ) Neurologic: no focal deficit, alert and oriented x3, strength 5/5 Psychiatric: mood/affect appropriate, cooperative - Lab 07/13/19 06:38 07/13/19 06:38 Most recent lab results Calcium 9.3 mg/dL (8.4-10.2) 07/13/19 06:38 Medications & Allergies - Medications Allergies/Adverse Reactions: Allergies amlodipine besylate [From Norvasc] Allergy (Verified 01/21/14 20:31) Vomiting hydromorphone HCl [From Dilaudid] Allergy (Verified 01/21/14 20:31) Vomiting lisinopril Allergy (Verified 01/21/14 20:31) Unknown Home Medications: Home Medications Medication Instructions Recorded Confirmed Last Taken Type Acetaminophen [Acetaminophen TAB] 650 mg PO Q4H PRN 30 Days tablet 06/21/19 07/02/19 07/01/19 Rx Aspirin EC 325 mg PO QDAY 30 Days tablet 06/21/19 07/02/19 07/01/19 Rx 325 AtorvaSTATin [Lipitor] 40 mg PO QHS 30 Days tablet 06/21/19 07/02/19 07/01/19 Rx 40 Ferrous Sulfate [Feosol 325 MG tab] 325 mg PO QDAY tablet 06/21/19 07/02/19 07/01/19 Rx 325 Folic Acid [Folvite] 1 mg PO QDAY tablet 06/21/19 07/02/19 07/01/19 Rx 1 Ondansetron [Zofran ODT TAB] 4 mg PO Q6H PRN 30 Days tab.rapdis 06/21/19 07/02/19 07/01/19 Rx 4 Clonidine HCl [Catapres] 0.3 mg PO BID 06/27/19 07/02/19 07/01/19 History 0.3 Insulin Glargine [Lantus] 5 units SQ QHS 06/27/19 07/02/19 07/01/19 History 2 Labetalol HCl [Labetalol 300mg TAB] 300 mg PO BID 06/27/19 07/02/19 07/01/19 History 300 hydrALAZINE [Apresoline TAB] 100 mg PO TID 06/27/19 07/02/19 07/01/19 History 325 Lansoprazole Solutab [Prevacid 30 mg FEEDTUBE QDAY tab.rapdis 07/01/19 07/02/19 07/01/19 Rx Solutab] Lipase/Protease/Amylase [Pancreaze 1 each FEEDTUBE PRN PRN capsule 07/01/1907/01/19 Rx 10,500 Unit] 1 Sennosides Tab [Senokot] 8.6 mg PO Q12H PRN tablet 07/01/19 07/02/19 07/01/19 Rx 8.6 Active Medications: Generic Name Dose Route Start Last Admin Trade Name Freq PRN Reason Stop Dose Admin Acetaminophen 650 mg 07/01/19 20:15 Tylenol PO Q6H PRN Non Cardiac Pain or Temp>100.5 Albuterol 2.5 mg 07/01/19 20:16 Proventil IH Q4HRT PRN Shortness Of Breath Aspirin 325 mg 07/02/19 08:00 07/12/19 08:56 Ecotrin PO 325 mg QDAY [facility] Administration Atorvastatin Calcium 40 mg 07/01/19 21:00 07/12/19 22:08 Lipitor PO 40 mg QHS [facility] Administration Bisacodyl 10 mg 07/01/19 20:16 Dulcolax [place] QDAY PRN Constipation Bisacodyl 5 mg 07/08/19 12:19 07/08/19 12:38 Dulcolax PO 5 mg BID PRN Administration Constipation Clonidine HCl 0.2 mg 07/04/19 06:00 07/13/19 05:34 Catapres PO 0.2 mg Q8HR [facility] Administration Dextrose 50 ml 07/01/19 20:02 D50w (25gm) Syringe IV PRN PRN Hypoglycemia Ferrous Sulfate 325 mg 07/02/19 08:00 07/12/19 08:57 Feosol PO 325 mg QDAY [facility] Administration Folic Acid 1 mg 07/02/19 08:00 07/12/19 08:57 Folvite PO 1 mg QDAY [facility] Administration Heparin Sodium (Porcine) 5,000 unit 07/01/19 22:00 07/13/19 05:49 Heparin SUB-Q Not Given Q8HR [facility] Hydralazine HCl 100 mg 07/02/19 08:00 07/12/19 21:17 Apresoline PO Not Given TID [facility] Hydralazine HCl 10 mg 07/01/19 20:16 07/09/19 02:43 Apresoline IV 10 mg Q4H PRN Administration Hypertension Insulin Human Lispro 0 unit 07/01/19 22:00 07/12/19 22:07 Humalog SUB-Q 1 unit ACHS [facility] Administration Protocol Labetalol HCl 300 mg 07/01/19 22:00 07/12/19 21:18 Normodyne PO Not Given BID [facility] Nifedipine 60 mg 07/07/19 18:00 07/13/19 05:33 Procardia Xl PO 60 mg Q12H [facility] Administration Ondansetron HCl 4 mg 07/01/19 20:16 07/06/19 23:20 Zofran Odt PO 4 mg Q8H PRN Administration Nausea And Vomiting Ondansetron HCl 4 mg 07/09/19 11:00 07/10/19 06:10 Zofran IV 4 mg Q6H PRN Administration Nausea And Vomiting Pantoprazole Sodium 20 mg 07/02/19 08:00 07/12/19 08:57 Protonix PO 20 mg QDAY [facility] Administration Polyethylene Glycol 17 gm 07/01/19 20:32 Miralax 3350 PO QDAY PRN Constipation
[2019-07-13] MEDS: HumaLOG SUB-Q SCH ×4 (08:21→21:27)
[2019-07-13] MEDS: FEOSOL PO SCH (08:47)
[2019-07-13] MEDS: PROTONIX PO SCH (08:47)
[2019-07-13] MEDS: ECOTRIN PO SCH (08:47)
[2019-07-13] MEDS: FOLVITE PO SCH (08:47)
[2019-07-13] MEDS: APRESOLINE PO SCH ×3 (08:48→21:13)
[2019-07-13] MEDS: NORMODYNE PO SCH ×2 (08:48→21:14)
--- NOTE | 2019-07-13 10:39 | Progress Note ---
Subjective Date of service: 07/13/19 Principal diagnosis: CVA Interval history: 49-year-old female admitted to outside hospital with shortness of breath and dyspnea on exertion. She is found to have a CHF exacerbation and hypertensive urgency with blood pressure 211/104. Cardiology and nephrology consults were placed. Lasix was discontinued due to elevated creatinine and should be restarted once creatinine is less than 3. Patient's baseline creatinine is 2.1- 2.2. Fluid restriction was started at 15 mL per day. Clonidine and hydralazine were both discontinued patient was continued on labetalol and verapamil. She had to iron infusions. Uncertain why patient was taken off of statin but per patient and her PCP advised not to take it. She does have a history of CVA but was only on aspirin. States statin was stopped by [facility] due to pain in left shoulder which was more likely due to tone. Statin was restarted at outside Hospital. We'll discuss secondary stroke prevention with patient made sure that she and family understand her need to continue with the statin. Patient also bernardo s a history of relapsing remitting multiple sclerosis but has not had a flair in 3 years. States she has falls about once a week. Patient is known to the service and was recently discharged to the acute care side of the hospital due to altered mental status, hypertensive emergency and ultimately CVA. Patient is participating in therapy and making reasonable progress. Taking rest breaks as needed. +BM Monitor. Denies pain, palpitations, dyspnea, cough or joint pain. Labs obtained - elevated Crea. Bumex d/c'd by nephrology. Will monitor BP - if she is still having episodic lower BP, will reduce clonidine again. Has been drowsy last several days - similar to the way she feels at home when taking full dose of clonidine. Uncertain why meds were held outside of hold parameters on 07/12 by nurse Packer without notifying me. Discussed with nursing. Working to get BP stable on PO meds before discharge. Will also need to schedule them in a reasonable manner LUE tone stable. Walking improved. Attempting to return to Kevin level if possible to be able to return home safely alone. All records, vitals, labs and medications were reviewed. No other issues per patient, nursing or therapy. Objective - Exam Narrative Exam: MUSCULOSKELETAL SPECIALTY EXAM CONSTITUTIONAL: Well developed, well nourished, appropriately groomed. RIGHT hand dominant. RESPIRATORY: Clear to auscultation bilaterally, no increased work of breathing CARDIOVASCULAR: Regular Rate/ Rhythm, no swelling, edema or tenderness in BUE or BLE. All extremities warm. GI: + bowel sounds, soft, NTTP, nondistended. INTEGUMENTARY: Normal, no lesion, rash, masses or bruising noted in extremities. MUSCULOSKELETAL: BUE and BLE normal without defect, crepitus, subluxation, effusion, arthritic changes or TTP. SA EF WE EE FF FA HF KE ADF EHL APF R 5/5 overall L 4-/5 4-/5 4-/5 4-/5 4-/5 4-/5 4/5 4/5 4/5 4/5 4/5 ROM decreased on left upper extremity Tone increased on left upper extremity however less than previous NEURO: Left facial droop including eye Sensation intact in all extremities without extinction. No tremor noted in 4 extremities. Follows 2 step commands. Aphasia not appreciated Dysarthria not appreciated, slowed maris with speech with slight slurring occasionally Dysphagia not appreciated Neglect not appreciated POSTURE and GAIT: Sitting posture good. Balance appears reasonable seated. Patient was able to perform a stand pivot transfer with min to mod assist. Gait reasonable with slowed short steps.. PSYCH: Alert, oriented x3, affect appears flattened. Insight appears intact. - Constitutional Vitals: Vital Signs - 12hr 07/12/19 07/13/19 07/13/19 23:59 00:00 00:16 Temperature 36.9 C 36.9 C Pulse Rate 73 75 69 Respiratory 18 18 Rate Blood Pressure 130/73 O2 Sat by Pulse 100 99 99 Oximetry 07/13/19 07/13/19 07/13/19 04:23 04:24 05:34 Temperature Pulse Rate 78 76 Respiratory 18 Rate Blood Pressure 135/67 135/67 O2 Sat by Pulse 98 99 Oximetry 07/13/19 07/13/19 07/13/19 07:17 08:48 09:36 Temperature 36.6 C Pulse Rate 77 77 Respiratory 20 20 Rate Blood Pressure 141/79 141/79 O2 Sat by Pulse 100 100 Oximetry - Allied health notes Allied health notes reviewed: nursing, PT, OT FIMS assessment as documented by PT/OT/ST: Grooming Patient cleans teeth/dentures: Yes Patient young/brushes hair: Yes Patient washes, rinses and Yes dries face: Patient washes, rinses and Yes dries hands: Patient applies make-up: No Patient performs (no make-up/ 4/4 (100%) shaving): Grooming FIM Score 5. Supervision (Leola applies toothpaste or opens containers.) Toileting Toileting Device Commode over Toilet Patient able to: Adjust clothes before,Clean self,Adjust clothes after Patient able to perform: 3/3 (100%) Toileting FIM Score 4. Minimal Assistance (Patient = 75% or more. Needs touching.) Social interaction/Memory/Problem solving Social Interaction FIM Score 5. Supervision (Needs supv. <10%. Needs encouragement to participate.) Memory FIM Score 5. Supervision (Needs cueing <10%, stressful/ unfamiliar situations.) Problem Solving FIM Score 5. Supervision (Needs cueing <10% to solve routine problems.) Transfers Mode of Locomotion: Wheelchair Bed/Chair/Wheelchair Transfers 4. Minimal Assistance (Patient = 75% or more. FIM Score Needs touching.) Toilet Transfers FIM Score 4. Minimal Assistance (Patient = 75% or more. Needs touching.) Patient transferred to: Shower Shower Transfers FIM Score 4. Minimal Assistance (Patient = 75% or more. Needs touching.) Locomotion- Stairs Device used on Stairs Handrail/s Number of Stairs Ascended/ 8 Descended Patient used handrail/support: Yes Stairs FIM Score 2. Maximal Assistance (Patient = 25% or more, 4- 6 stairs.) Locomotion- walk/wheelchair Most Frequent Mode of Wheelchair Locomotion: Ambulation Distance 20 Walking FIM Score 1. Total Assistance (Pt. < 25%, 2 or more person assist, or <50 ft.) Wheelchair Propulsion Distance 55 Wheelchair FIM Score 2. Maximal Assistance (Patient = 25% or more. Minimum of 50 ft.) Eating Eating FIM Score 5. Supervision/Set-Up (Needs help w/ containers, cutting meat, etc.) Dressing-Upper body Patient retrieves clothing No items: Patient applies/removes UE No prosthesis or orthosis: Upper Body Dressing FIM Score 3. Moderate Assistance (Patient = 50% or more) Dressing-lower body Patient retrieves clothing No items: Patient applies/removes LE No prosthesis or orthosis: Lower Body Dressing FIM Score 5. Supv./Set-Up (Leola sets out clothes or applies pros./orth.) - Labs CBC & Chem 7: 07/13/19 06:38 07/13/19 06:38 Labs: Laboratory Results - last 72 hr 07/10/19 07/10/19 07/10/19 11:46 18:08 21:51 WBC RBC Hgb Hct MCV MCH MCHC RDW Plt Count Sodium Potassium Chloride Carbon Dioxide Anion Gap BUN Creatinine Estimated GFR BUN/Creatinine Ratio Glucose POC Glucose 255 H 172 H 226 H Calcium 07/11/19 07/11/19 07/11/19 07:27 11:52 15:30 WBC 11.4 H RBC 3.93 Hgb 10.3 Hct 31.7 MCV 81 MCH 26 L MCHC 33 RDW 19.2 H Plt Count 263 Sodium Potassium Chloride Carbon Dioxide Anion Gap BUN Creatinine Estimated GFR BUN/Creatinine Ratio Glucose POC Glucose 193 H 226 H Calcium 07/11/19 07/11/19 07/11/19 15:30 16:07 22:17 WBC RBC Hgb Hct MCV MCH MCHC RDW Plt Count Sodium 135 L Potassium 4.5 Chloride 97.7 L Carbon Dioxide 21 L Anion Gap 21 BUN 57 H Creatinine 4.7 H Estimated GFR 12 BUN/Creatinine Ratio 12 Glucose 126 H POC Glucose 126 H 160 H Calcium 8.9 07/12/19 07/12/19 07/12/19 07:41 12:33 16:13 WBC RBC Hgb Hct MCV MCH MCHC RDW Plt Count Sodium Potassium Chloride Carbon Dioxide Anion Gap BUN Creatinine Estimated GFR BUN/Creatinine Ratio Glucose POC Glucose 176 H 174 H 160 H Calcium 07/12/19 07/13/19 07/13/19 21:45 06:38 06:38 WBC 7.4 RBC 3.96 Hgb 10.6 Hct 32.8 MCV 83 MCH 27 L MCHC 32 RDW 19.1 H Plt Count 301 Sodium 136 L Potassium 4.0 Chloride 95.2 L Carbon Dioxide 21 L Anion Gap 24 BUN 64 H Creatinine 4.6 H Estimated GFR 12 BUN/Creatinine Ratio 14 Glucose 116 H POC Glucose 195 H Calcium 9.3 07/13/19 07:26 WBC RBC Hgb Hct MCV MCH MCHC RDW Plt Count Sodium Potassium Chloride Carbon Dioxide Anion Gap BUN Creatinine Estimated GFR BUN/Creatinine Ratio Glucose POC Glucose 134 H Calcium Assessment and Plan CVA with Left nondominant hemiplegia: discussed secondary stroke prevention and prognosis. continue medications and monitor for worsening neurologic condition. LUE spasticity: Stretching with OT, continue splinting. CKD with acute exacerbation: avoid nephrotoxic medications, monitor renal function, nephrology consult. Elevated CREA, bumex d/c'd by nephro, monitor HTN: continue medications, adjust for normotension, nephrology consulted due to renal component. Q4h vitals. PRN coverage available. Better control now with some lower values, will need better PO control and schedule prior to d/c. DM 2: continue SSI, monitor GLU. A1c was normal. Planned to reduce GLU monitoring based on A1c but she has been running mid to high 200s. Will continue SSI N/V: Zofran available, monitor Z73.6 ADL dysfunction: OT will work on improving ability to perform ADLs (including assistive devices) to increase independence and decrease caregiver burden and improve functional transfers and mobility training. R26.2 Difficulty walking: PT will work on gait training and proper use of a ssistive devices and advance as appropriate to use of stairs and outside ambulation on uneven surfaces. R26.81 Unsteadiness on feet: PT will work on improving static and dynamic sitting and standing balance as well as proper use of assistive devices to decrease risk of falls. R26.89 Abnormality of gait: PT will work to improve safety and efficiency of gait through neuromotor training and gait training along with instruction on proper use of assistive devices. M62.81 Muscle weakness: PT & OT will work on strengthening exercises to improve functional strength including mixture of closed and open kinetic chain exercises. R53.81 Debility: PT & OT will work on improving overall functional status to improve participation with ADLs, mobility and social involvement. R53.83 Fatigue: PT & OT will work on improving endurance through aerobic exercises and therapeutic activity while monitoring patients tolerance for activity and vital signs as needed. MS: monitor for any worsening symptoms DVT ppx: heparin Pain: Continue physical modalities in therapy and pain medications as needed to achieve functional pain control. Sleep: Monitor and address as needed. Bowel: Monitor and address as needed. PRN meds available Appetite: Monitor and address as needed. Discharge planning: Pending therapy progress and care plan meeting. Will continue discussion with therapy team, SW, patient and family. Restrictions/ Precautions: Falls WB status: FWB Functional Hx: ADLs: Independent Cognition: Independent Mobility: RW Barriers to Discharge: Decreased mobility and ability to perform self care, b alance deficits, weakness, spasticity Estimated Length of Stay: 10-14 days Discharge Destination: Home with family, will need some assistance at home, will continue to work towards highest level of independence.
--- NOTE | 2019-07-13 10:56 | Progress Note ---
Assessment and Plan Assessment and plan: Patient is 49-year-old woman with a history of anemia, diabetes, heart failure, stroke, hypertension, COPD, CVA with left side deficit for which she was in [facility] rehabilitation unit from [facility], who was about to be discharge from discharge to the acute Inpatient unit for confusion and elevated blood pressure with systolic BP over 200, inability to talk which began on the weekend per Dr. Singh patient was admitted to the hospital and imaging study showed, Small areas of subacute ischemia are identified in the head of the right caudate nucleus, left parietal white matter and left splenium of the corpus callosum. Patients meds were adjusted and then discharge back to Rehab. * MRI brain without contrast IMPRESSION: Small areas of subacute ischemia are identified in the head of the right caudate nucleus, left parietal white matter and left splenium of the corpus callosum as described. Volume loss. Advanced chronic white matter changes. Chronic focal infarcts in the right zavala radiata and inferior left cerebellum. --Acute ischemic stroke; left-sided weakness Continue therapy as prescribed. Continue ASA and statin, PT and OT rehabilitation --Malignant hypertension;Well controlled, On multiple high-dose antihypertensives and when necessary medications, Closely monitor blood pressures and, adjust doses as needed --Acute metabolic Hypertensive encephalopathy: Improving as blood pressure comes down --[place] stool 07/10 resolved, stool for occult blood was negative Patient refused blood tests for H&H --Nausea/vomiting/Acute gastritis: antiemetics,protonix and supportive care improved Poor appetite --CKD stage 4, unchanged, avoid nephrotoxins, nephrology following --DM Type 2 as patient a1c is 4.9 last month, she has had normal a1c of < 6 since 2017, no need for insulins at this time --Anemia: Continue supportive care --Moderate protein malnutrition, Dietitian consult --Diastolic CHF by history; chronic with no acute excarbation --Dypshagia, continue current diet. No new complaints --Depression, stable and improved -- DVT prophylaxis:Heparin Continue current management Monitor closely and adjust management as needed Plan of care reviewed with the patient and her nurse History Interval history: Patient with acute stroke Poor appetite Hospitalist Physical - Physical exam Narrative exam: Gen: Not in acute distress, lying in bed, HEENT: Normocephalic, atraumatic Neck: supple, no JVD Heart: S1 and S2 reg, tachy, no murmurs, rubs or gallop Lungs: Clear to auscultation, no rhonchi, no wheeze Abd: soft, non tender, non distended, normal BS, Ext: No edema, no clubbing, no cyanosis Neuro: Awake, alert, oriented X 3, Residual left sided weakness - Constitutional Vitals: Temp Pulse Resp BP Pulse Ox 97.9 F 77 20 141/79 100 07/13/19 07:17 07/13/19 08:48 07/13/19 09:36 07/13/19 08:48 07/13/19 09:36 General appearance: Present: no acute distress Results - Labs CBC & Chem 7: 07/13/19 06:38 07/13/19 06:38 Labs: Laboratory Last Values WBC 7.4 K/mm3 (4.5-11.0) 07/13/19 06:38 RBC 3.96 M/mm3 (3.65-5.03) 07/13/19 06:38 Hgb 10.6 gm/dl (10.1-14.3) 07/13/19 06:38 Hct 32.8 % (30.3-42.9) 07/13/19 06:38 MCV 83 fl (79-97) 07/13/19 06:38 MCH 27 pg (28-32) L 07/13/19 06:38 MCHC 32 % (30-34) 07/13/19 06:38 RDW 19.1 % (13.2-15.2) H 07/13/19 06:38 Plt Count 301 K/mm3 (140-440) 07/13/19 06:38 Lymph % (Auto) 7.7 % (13.4-35.0) L 07/09/19 12:28 Cache % (Auto) 5.4 % (0.0-7.3) 07/09/19 12:28 Eos % (Auto) 1.4 % (0.0-4.3) 07/09/19 12:28 Baso % (Auto) 0.2 % (0.0-1.8) 07/09/19 12:28 Lymph # 0.5 K/mm3 (1.2-5.4) L 07/09/19 12:28 Cache # 0.3 K/mm3 (0.0-0.8) 07/09/19 12:28 Eos # 0.1 K/mm3 (0.0-0.4) 07/09/19 12:28 Baso # 0.0 K/mm3 (0.0-0.1) 07/09/19 12:28 Seg Neutrophils % 85.3 % (40.0-70.0) H 07/09/19 12:28 Seg Neutrophils # 5.3 K/mm3 (1.8-7.7) 07/09/19 12:28 Sodium 136 mmol/L (137-145) L 07/13/19 06:38 Potassium 4.0 mmol/L (3.6-5.0) 07/13/19 06:38 Chloride 95.2 mmol/L (98-107) L 07/13/19 06:38 Carbon Dioxide 21 mmol/L (22-30) L 07/13/19 06:38 24 mmol/L 07/13/19 06:38 BUN 64 mg/dL (7-17) H 07/13/19 06:38 4.6 mg/dL (0.7-1.2) H 07/13/19 06:38 Estimated GFR 12 ml/min 07/13/19 06:38 14 % 07/13/19 06:38 Glucose 116 mg/dL (65-100) H 07/13/19 06:38 POC Glucose 134 (70-105) H 07/13/19 07:26 Calcium 9.3 mg/dL (8.4-10.2) 07/13/19 06:38 Active Medications - Current Medications Current Medications: Generic Name Dose Route Start Last Admin Trade Name Freq PRN Reason Stop Dose Admin Acetaminophen 650 mg 07/01/19 20:15 Tylenol PO Q6H PRN Non Cardiac Pain or Temp>100.5 Albuterol 2.5 mg 07/01/19 20:16 Proventil IH Q4HRT PRN Shortness Of Breath Aspirin 325 mg 07/02/19 08:00 07/13/19 08:47 Ecotrin PO 325 mg QDAY CASPER Administration Atorvastatin Calcium 40 mg 07/01/19 21:00 07/12/19 22:08 Lipitor PO 40 mg QHS CASPER Administration Bisacodyl 10 mg 07/01/19 20:16 Dulcolax ID QDAY PRN Constipation Bisacodyl 5 mg 07/08/19 12:19 07/08/19 12:38 Dulcolax PO 5 mg BID PRN Administration Constipation Clonidine HCl 0.2 mg 07/04/19 06:00 07/13/19 05:34 Catapres PO 0.2 mg Q8HR CASPER Administration Dextrose 50 ml 07/01/19 20:02 D50w (25gm) Syringe IV PRN PRN Hypoglycemia Ferrous Sulfate 325 mg 07/02/19 08:00 07/13/19 08:47 Feosol PO 325 mg QDAY CASPER Administration Folic Acid 1 mg 07/02/19 08:00 07/13/19 08:47 Folvite PO 1 mg QDAY CASPER Administration Heparin Sodium (Porcine) 5,000 unit 07/01/19 22:00 07/13/19 05:49 Heparin SUB-Q Not Given Q8HR [facility] Hydralazine HCl 100 mg 07/02/19 08:00 07/13/19 08:48 Apresoline PO 100 mg TID [facility] Administration Hydralazine HCl 10 mg 07/01/19 20:16 07/09/19 02:43 Apresoline IV 10 mg Q4H PRN Administration Hypertension Insulin Human Lispro 0 unit 07/01/19 22:00 07/13/19 08:21 Humalog SUB-Q Not Given [facility] Protocol Labetalol HCl 300 mg 07/01/19 22:00 07/13/19 08:48 Normodyne PO 300 mg BID [facility] Administration Nifedipine 60 mg 07/07/19 18:00 07/13/19 05:33 Procardia Xl PO 60 mg Q12H [facility] Administration Ondansetron HCl 4 mg 07/01/19 20:16 07/06/19 23:20 Zofran Odt PO 4 mg Q8H PRN Administration Nausea And Vomiting Ondansetron HCl 4 mg 07/09/19 11:00 07/10/19 06:10 Zofran IV 4 mg Q6H PRN Administration Nausea And Vomiting Pantoprazole Sodium 20 mg 07/02/19 08:00 07/13/19 08:47 Protonix PO 20 mg QDAY [facility] Administration Polyethylene Glycol 17 gm 07/01/19 20:32 Miralax 3350 PO QDAY PRN Constipation Nutrition/Malnutrition Assess - Dietary Evaluation Nutrition/Malnutrition Findings: Nutrition Notes Start: 07/13/19 09 :26 Freq: Status: Active Protocol: Document 07/13/19 09:26 JAZMYN (Rec: 07/13/19 09:30 JAZMYN [email or web address]) Nutrition Notes Need for Assessment generated from: LOS Initial or Follow up Brief Note Current Diagnosis CKD(stage I-IV),COPD,Diabetes, Hypertension,Heart Failure Other Pertinent Diagnosis Acute CVA, Dysphagia Current Diet Cardiac/Consistent CHO mech soft with ground meats Labs/Tests BUN 64 Cr 4.6 Pertinent Medications Feosol, Folic acid Height 5 ft 4 in Weight 69.2 kg [place] Body Weight (kg) 54.54 BMI 26.2 Weight Status Overweight Subjective/Other Information Pt screened for LOS. She has consumed 59% of meals since admission. Percent of energy/protein needs met: 72% energy 97% pro Burn Absent Trauma Absent Is patient on ventilator? No Is Patient Ambulatory and/or Out of Bed Yes REE-([place]-St. Jeor-ambulatory/OOB) [ 1705.600 [id number]] Calculation Used for Recommendations [place]-St Jeor Additional Notes Pro needs 0.8-0.9g/k-62g/ day Fluid needs 1ml/kcal Nutrition Intervention Follow-Up By: 07/20/19 Additional Comments F/U: stable intakes, wt
[2019-07-14] MEDS: CATAPRES PO SCH ×3 (05:22→22:20)
[2019-07-14] MEDS: PROCARDIA XL PO SCH ×2 (05:23→18:35)
[2019-07-14] MEDS: HEPARIN SUB-Q SCH ×3 (05:23→22:21)
[2019-07-14] MEDS: HumaLOG SUB-Q SCH ×4 (09:30→22:21)
--- NOTE | 2019-07-14 09:38 | Progress Note ---
Subjective Date of service: 07/14/19 Principal diagnosis: CVA Interval history: 49-year-old female admitted to outside hospital with shortness of breath and dyspnea on exertion. She is found to have a CHF exacerbation and hypertensive urgency with blood pressure 211/104. Cardiology and nephrology consults were placed. Lasix was discontinued due to elevated creatinine and should be restarted once creatinine is less than 3. Patient's baseline creatinine is 2.1- 2.2. Fluid restriction was started at 15 mL per day. Clonidine and hydralazine were both discontinued patient was continued on labetalol and verapamil. She had to iron infusions. Uncertain why patient was taken off of statin but per patient and her PCP advised not to take it. She does have a history of CVA but was only on aspirin. States statin was stopped by EDUCATION ANALYST due to pain in left shoulder which was more likely due to tone. Statin was restarted at outside Hospital. We'll discuss secondary stroke prevention with patient made sure that she and family understand her need to continue with the statin. Patient also bernardo s a history of relapsing remitting multiple sclerosis but has not had a flair in 3 years. States she has falls about once a week. Patient is known to the service and was recently discharged to the acute care side of the hospital due to altered mental status, hypertensive emergency and ultimately CVA. Patient is participating in therapy and making reasonable progress. Taking rest breaks as needed. +BM Monitor. Denies pain, palpitations, dyspnea, cough or joint pain. Reduce clonidine again. Continue to monitor blood pressure on reduced dose. Meds are being held today due to holding parameters. Unfortunately I expect her to rebound later this afternoon since she is missing hydralazine and labetalol. Overall patient states that she is feeling better, not having as many issues with dizziness. Hopefully with reduced dose of clonidine we can have her blood pressure stabilized. Working to get BP stable on PO meds before discharge. Will also need to schedule them in a reasonable manner LUE tone stable. Walking improved. Attempting to return to Kevin level if possible to be able to return home safely alone. All records, vitals, labs and medications were reviewed. No other issues per patient, nursing or therapy. Objective - Exam Narrative Exam: MUSCULOSKELETAL SPECIALTY EXAM CONSTITUTIONAL: Well developed, well nourished, appropriately groomed. RIGHT hand dominant. RESPIRATORY: Clear to auscultation bilaterally, no increased work of breathing CARDIOVASCULAR: Regular Rate/ Rhythm, no swelling, edema or tenderness in BUE or BLE. All extremities warm. GI: + bowel sounds, soft, NTTP, nondistended. INTEGUMENTARY: Normal, no lesion, rash, masses or bruising noted in extremities. MUSCULOSKELETAL: BUE and BLE normal without defect, crepitus, subluxation, effusion, arthritic changes or TTP. SA EF WE EE FF FA HF KE ADF EHL APF R 5/5 overall L 4-/5 4-/5 4-/5 4-/5 4-/5 4-/5 4/5 4/5 4/5 4/5 4/5 ROM decreased on left upper extremity Tone increased on left upper extremity however less than previous NEURO: Left facial droop including eye Sensation intact in all extremities without extinction. No tremor noted in 4 extremities. Follows 2 step commands. Aphasia not appreciated Dysarthria not appreciated, slowed maris with speech with slight slurring occ asionally , improved Dysphagia not appreciated Neglect not appreciated POSTURE and GAIT: Sitting posture good. Balance appears reasonable seated. Patient was able to perform a stand pivot transfer with min to mod assist. Gait reasonable with slowed short steps.. PSYCH: Alert, oriented x3, affect appears flattened. Insight appears intact. - Constitutional Vitals: Vital Signs - 12hr 07/13/19 07/14/19 07/14/19 23:00 01:19 05:15 Temperature 36.9 C Pulse Rate 76 77 Respiratory 20 18 17 Rate Blood Pressure 121/68 117/68 O2 Sat by Pulse 100 100 97 Oximetry 07/14/19 07/14/19 07/14/19 05:16 05:17 05:22 Temperature 36.9 C Pulse Rate 76 77 Respiratory Rate Blood Pressure 117/68 O2 Sat by Pulse 97 Oximetry 07/14/19 07:55 Temperature 36.6 C Pulse Rate 74 Respiratory 18 Rate Blood Pressure 124/55 O2 Sat by Pulse 98 Oximetry - Allied health notes Allied health notes reviewed: nursing, PT, OT FIMS assessment as documented by PT/OT/ST: Grooming Patient cleans teeth/dentures: Yes Patient young/brushes hair: Yes Patient washes, rinses and Yes dries face: Patient washes, rinses and Yes dries hands: Patient applies make-up: No Patient performs (no make-up/ 4/4 (100%) shaving): Grooming FIM Score 5. Supervision (Rheems applies toothpaste or opens containers.) Toileting Toileting Device Commode over Toilet Patient able to: Adjust clothes before,Clean self,Adjust clothes after Patient able to perform: 3/3 (100%) Toileting FIM Score 4. Minimal Assistance (Patient = 75% or more. Needs touching.) Social interaction/Memory/Problem solving Social Interaction FIM Score 6. Mod. [place] (Mostly appropriate. May need meds. No supv.) Memory FIM Score 5. Supervision (Needs cueing <10%, stressful/ unfamiliar situations.) Problem Solving FIM Score 5. Supervision (Needs cueing <10% to solve routine problems.) Transfers Mode of Locomotion: Wheelchair Bed/Chair/Wheelchair Transfers 5. Supervision (Needs supv. or set-up for FIM Score sliding board, foot rests.) Toilet Transfers FIM Score 4. Minimal Assistance (Patient = 75% or more. Needs touching.) Patient transferred to: Shower Shower Transfers FIM Score 4. Minimal Assistance (Patient = 75% or more. Needs touching.) Locomotion- Stairs Device used on Stairs Handrail/s Number of Stairs Ascended/ 8 Descended Patient used handrail/support: Yes Stairs FIM Score 2. Maximal Assistance (Patient = 25% or more, 4- 6 stairs.) Locomotion- walk/wheelchair Most Frequent Mode of Wheelchair Locomotion: Ambulation Distance 20 Walking FIM Score 1. Total Assistance (Pt. < 25%, 2 or more perso n assist, or <50 ft.) Wheelchair Propulsion Distance 55 Wheelchair FIM Score 2. Maximal Assistance (Patient = 25% or more. Minimum of 50 ft.) Eating Eating FIM Score 5. Supervision/Set-Up (Needs help w/ containers, cutting meat, etc.) Dressing-Upper body Patient retrieves clothing No items: Patient applies/removes UE No prosthesis or orthosis: Upper Body Dressing FIM Score 3. Moderate Assistance (Patient = 50% or more) Dressing-lower body Patient retrieves clothing No items: Patient applies/removes LE No prosthesis or orthosis: Lower Body Dressing FIM Score 5. Supv./Set-Up (Rheems sets out clothes or applies pros./orth.) - Labs CBC & Chem 7: 09/02/19 06:38 07/13/19 06:38 Labs: Laboratory Results - last 72 hr 07/11/19 07/11/19 07/11/19 11:52 15:30 15:30 WBC 11.4 H RBC 3.93 Hgb 10.3 Hct 31.7 MCV 81 MCH 26 L MCHC 33 RDW 19.2 H Plt Count 263 Sodium 135 L Potassium 4.5 Chloride 97.7 L Carbon Dioxide 21 L Anion Gap 21 BUN 57 H Creatinine 4.7 H Estimated GFR 12 BUN/Creatinine Ratio 12 Glucose 126 H POC Glucose 226 H Calcium 8.9 07/11/19 07/11/19 07/12/19 16:07 22:17 07:41 WBC RBC Hgb Hct MCV MCH MCHC RDW Plt Count Sodium Potassium Chloride Carbon Dioxide Anion Gap BUN Creatinine Estimated GFR BUN/Creatinine Ratio Glucose POC Glucose 126 H 160 H 176 H Calcium 07/12/19 07/12/19 07/12/19 12:33 16:13 21:45 WBC RBC Hgb Hct MCV MCH MCHC RDW Plt Count Sodium Potassium Chloride Carbon Dioxide Anion Gap BUN Creatinine Estimated GFR BUN/Creatinine Ratio Glucose POC Glucose 174 H 160 H 195 H Calcium 07/13/19 07/13/19 07/13/19 06:38 06:38 07:26 WBC 7.4 RBC 3.96 Hgb 10.6 Hct 32.8 MCV 83 MCH 27 L MCHC 32 RDW 19.1 H Plt Count 301 Sodium 136 L Potassium 4.0 Chloride 95.2 L Carbon Dioxide 21 L Anion Gap 24 BUN 64 H Creatinine 4.6 H Estimated GFR 12 BUN/Creatinine Ratio 14 Glucose 116 H POC Glucose 134 H Calcium 9.3 07/13/19 07/13/19 07/13/19 11:25 16:13 21:31 WBC RBC Hgb Hct MCV MCH MCHC RDW Plt Count Sodium Potassium Chloride Carbon Dioxide Anion Gap BUN Creatinine Estimated GFR BUN/Creatinine Ratio Glucose POC Glucose 202 H 218 H 151 H Calcium 07/14/19 08:02 WBC RBC Hgb Hct MCV MCH MCHC RDW Plt Count Sodium Potassium Chloride Carbon Dioxide Anion Gap BUN Creatinine Estimated GFR BUN/Creatinine Ratio Glucose POC Glucose 169 H Calcium Assessment and Plan CVA with Left nondominant hemiplegia: discussed secondary stroke prevention and prognosis. continue medications and monitor for worsening neurologic condition. LUE spasticity: Stretching with OT, continue splinting. CKD with acute exacerbation: avoid nephrotoxic medications, monitor renal func tion, nephrology consult. Elevated CREA, bumex d/c'd by nephro, monitor HTN: continue medications, adjust for normotension, nephrology consulted due to renal component. Q4h vitals. PRN coverage available. Better control now with some lower values, will need better PO control and schedule prior to d/c. DM 2: continue SSI, monitor GLU. A1c was normal. Planned to reduce GLU monitoring based on A1c but she has been running mid to high 200s. Will continue SSI N/V: Zofran available, monitor Z73.6 ADL dysfunction: OT will work on improving ability to perform ADLs (including assistive devices) to increase independence and decrease caregiver burden and improve functional transfers and mobility training. R26.2 Difficulty walking: PT will work on gait training and proper use of assistive devices and advance as appropriate to use of stairs and outside ambulation on uneven surfaces. R26.81 Unsteadiness on feet: PT will work on improving static and dynamic sitting and standing balance as well as proper use of assistive devices to decrease risk of falls. R26.89 Abnormality of gait: PT will work to improve safety and efficiency of gait through neuromotor training and gait training along with instruction on proper use of assistive devices. M62.81 Muscle weakness: PT & OT will work on strengthening exercises to improve functional strength including mixture of closed and open kinetic chain exercises. R53.81 Debility: PT & OT will work on improving overall functional status to improve participation with ADLs, mobility and social involvement. R53.83 Fatigue: PT & OT will work on improving endurance through aerobic exercises and therapeutic activity while monitoring patients tolerance for activity and vital signs as needed. MS: monitor for any worsening symptoms DVT ppx: heparin Pain: Continue physical modalities in therapy and pain medications as needed to achieve functional pain control. Sleep: Monitor and address as needed. Bowel: Monitor and address as needed. PRN meds available Appetite: Monitor and address as needed. Discharge planning: Pending therapy progress and care plan meeting. Will continue discussion with therapy team, SW, patient and family. Restrictions/ Precautions: Falls WB status: FWB Functional Hx: ADLs: Independent Cognition: Independent Mobility: RW Barriers to Discharge: Decreased mobility and ability to perform self care, balance deficits, weakness, spasticity Estimated Length of Stay: 10-14 days Discharge Destination: Home with family, will need some assistance at home, will continue to work towards highest level of independence.
--- NOTE | 2019-07-14 09:59 | Progress Note ---
Assessment and Plan - Patient Problems (1) Chronic kidney disease, stage 4 (severe) Current Visit: Yes Status: Acute Plan to address problem: Kidney function marginally decreased, cont. to hold bumex. avoid nephrotoxins, NSAIDs, IV contrast. Follow-up electrolytes and renal function periodically. no acute indication for renal replacement therapy at present (2) Heart failure with preserved ejection fraction Current Visit: No Status: Acute Plan to address problem: Appears to be euvolemic. Continue medications (3) Hypertensive chronic kidney disease with stage 1 through stage 4 chronic kidney disease, or unspecified chronic kidney disease Current Visit: No Status: Chronic Plan to address problem: BP improved on current meds. holding bumex given marginally declined eGFR. Follow-up blood pressure on the adjusted medications. (4) Type 2 diabetes mellitus with diabetic chronic kidney disease Current Visit: No Status: Chronic Plan to address problem: Blood sugar management by primary attending (5) Cerebrovascular accident (CVA) Current Visit: Yes Status: Acute Plan to address problem: Continue OT/PT Subjective Date of service: 07/14/19 Principal diagnosis: CVA Interval history: pt awake, alert, in no acute distress Objective - Vital Signs Vital signs: Vital Signs - 12hr 07/13/19 07/14/19 07/14/19 23:00 01:19 05:15 Temperature 98.4 F Pulse Rate 76 77 Respiratory 20 18 17 Rate Blood Pressure 121/68 117/68 O2 Sat by Pulse 100 100 97 Oximetry 07/14/19 07/14/19 07/14/19 05:16 05:17 05:22 Temperature 98.5 F Pulse Rate 76 77 Respiratory Rate Blood Pressure 117/68 O2 Sat by Pulse 97 Oximetry 07/14/19 07:55 Temperature 97.9 F Pulse Rate 74 Respiratory 18 Rate Blood Pressure 124/55 O2 Sat by Pulse 98 Oximetry - General Appearance General appearance: well-developed, well-nourished, appears stated age EENT: ATNC, mucous membranes moist Neck: no JVD Respiratory: Present: Clear to Ascultation Cardiology: regular, S1S2 Gastrointestinal: normoactive bowel sounds Integumentary: no rash, other (no edema ) Neurologic: alert and oriented x3, strength 5/5 Psychiatric: mood/affect appropriate, cooperative - Lab 07/13/19 06:38 07/13/19 06:38 Most recent lab results Calcium 9.3 mg/dL (8.4-10.2) 07/13/19 06:38 Medications & Allergies - Medications Allergies/Adverse Reactions: Allergies amlodipine besylate [From Norvasc] Allergy (Verified 01/21/14 20:31) Vomiting hydromorphone HCl [From Dilaudid] Allergy (Verified 01/21/14 20:31) Vomiting lisinopril Allergy (Verified 01/21/14 20:31) Unknown Home Medications: Home Medications Medication Instructions Recorded Confirmed Last Taken Type Acetaminophen [Acetaminophen TAB] 650 mg PO Q4H PRN 30 Days tablet 06/21/19 07/02/19 07/01/19 Rx Aspirin EC 325 mg PO QDAY 30 Days tablet 06/21/19 07/02/19 07/01/19 Rx 325 AtorvaSTATin [Lipitor] 40 mg PO QHS 30 Days tablet 06/21/19 07/02/19 07/01/19 Rx 40 Ferrous Sulfate [Feosol 325 MG tab] 325 mg PO QDAY tablet 06/21/19 07/02/19 07/01/19 Rx 325 Folic Acid [Folvite] 1 mg PO QDAY tablet 06/21/19 07/02/19 07/01/19 Rx 1 Ondansetron [Zofran ODT TAB] 4 mg PO Q6H PRN 30 Days tab.rapdis 06/21/19 07/02/19 07/01/19 Rx 4 Clonidine HCl [Catapres] 0.3 mg PO BID 06/27/19 07/02/19 07/01/19 History 0.3 Insulin Glargine [Lantus] 5 units SQ QHS 06/27/19 07/02/19 07/01/19 History 2 Labetalol HCl [Labetalol 300mg TAB] 300 mg PO BID 06/27/19 07/02/19 07/01/19 History 300 hydrALAZINE [Apresoline TAB] 100 mg PO TID 06/27/19 07/02/19 07/01/19 History 325 Lansoprazole Solutab [Prevacid 30 mg FEEDTUBE QDAY tab.rapdis 07/01/19 07/02/19 07/01/19 Rx Solutab] Lipase/Protease/Amylase [Pancreaze 1 each FEEDTUBE PRN PRN capsule 07/01/19 0 07/02/19 07/01/19 Rx 10,500 Unit] 1 Sennosides Tab [Senokot] 8.6 mg PO Q12H PRN tablet 07/01/19 07/02/19 07/01/19 Rx 8.6 Active Medications: Generic Name Dose Route Start Last Admin Trade Name Freq PRN Reason Stop Dose Admin Acetaminophen 650 mg 07/01/19 20:15 Tylenol PO Q6H PRN Non Cardiac Pain or Temp>100.5 Albuterol 2.5 mg 07/01/19 20:16 Proventil IH Q4HRT PRN Shortness Of Breath Aspirin 325 mg 07/02/19 08:00 07/13/19 08:47 Ecotrin PO 325 mg QDAY [facility] Administration Atorvastatin Calcium 40 mg 07/01/19 21:00 07/13/19 21:13 Lipitor PO 40 mg QHS [facility] Administration Bisacodyl 10 mg 07/01/19 20:16 Dulcolax NM QDAY PRN Constipation Bisacodyl 5 mg 07/08/19 12:19 07/08/19 12:38 Dulcolax PO 5 mg BID PRN Administration Constipation Clonidine HCl 0.2 mg 07/04/19 06:00 07/14/19 05:22 Catapres PO 0.2 mg Q8HR [facility] Administration Dextrose 50 ml 07/01/19 20:02 D50w (25gm) Syringe IV PRN PRN Hypoglycemia Ferrous Sulfate 325 mg 07/02/19 08:00 07/13/19 08:47 Feosol PO 325 mg QDAY [facility] Administration Folic Acid 1 mg 07/02/19 08:00 07/13/19 08:47 Folvite PO 1 mg QDAY [facility] Administration Heparin Sodium (Porcine) 5,000 unit 07/01/19 22:00 07/14/19 05:23 Heparin SUB-Q Not Given Q8HR [facility] Hydralazine HCl 100 mg 07/02/19 08:00 07/13/19 21:13 Apresoline PO 100 mg TID [facility] Administration Hydralazine HCl 10 mg 07/01/19 20:16 07/09/19 02:43 Apresoline IV 10 mg Q4H PRN Administration Hypertension Insulin Human Lispro 0 unit 07/01/19 22:00 07/13/19 21:27 Humalog SUB-Q Not Given ACHS [facility] Protocol Labetalol HCl 300 mg 07/01/19 22:00 07/13/19 21:14 Normodyne PO 300 mg BID [facility] Administration Nifedipine 60 mg 07/07/19 18:00 07/14/19 05:23 Procardia Xl PO 60 mg Q12H [facility] Administration Ondansetron HCl 4 mg 07/01/19 20:16 07/06/19 23:20 Zofran Odt PO 4 mg Q8H PRN Administration Nausea And Vomiting Ondansetron HCl 4 mg 07/09/19 11:00 07/10/19 06:10 Zofran IV 4 mg Q6H PRN Administration Nausea And Vomiting Pantoprazole Sodium 20 mg 07/02/19 08:00 07/13/19 08:47 Protonix PO 20 mg QDAY [facility] Administration Polyethylene Glycol 17 gm 07/01/19 20:32 Miralax 3350 PO QDAY PRN Constipation
[2019-07-14] MEDS: APRESOLINE PO SCH ×3 (11:44→22:20)
[2019-07-14] MEDS: NORMODYNE PO SCH ×2 (11:44→22:19)
[2019-07-14] MEDS ORDERED: CATAPRES PO SCH (11:53)
[2019-07-14] MEDS: PROTONIX PO SCH (12:03)
[2019-07-14] MEDS: FOLVITE PO SCH (12:03)
[2019-07-14] MEDS: MIRALAX 3350 PO PRN (12:04)
[2019-07-14] MEDS: ECOTRIN PO SCH (12:04)
[2019-07-14] MEDS: FEOSOL PO SCH (12:18)
--- NOTE | 2019-07-14 13:17 | Progress Note ---
Assessment and Plan Assessment and plan: --Acute ischemic stroke; left-sided weakness Continue therapy as prescribed. Continue ASA and statin, PT and OT rehabilitation MRI brain revealed small areas of subacute ischemia are identified in the head of the right caudate nucleus, left parietal white matter and left splenium of the corpus callosum as described. Volume loss. Advanced chronic white matter changes. Chronic focal infarcts in the right zavala radiata and inferior left cerebellum. --Malignant hypertension;Well controlled, On multiple high-dose antihypertensives and when necessary medications, Closely monitor blood pressures and, adjust doses as needed --Acute metabolic Hypertensive encephalopathy: Improving as blood pressure comes down --Black Tarry stool 07/10 resolved, stool for occult blood was negative Patient refused blood tests for H&H --Nausea/vomiting/Acute gastritis: antiemetics,protonix and supportive care improved --CKD stage 4, unchanged, avoid nephrotoxins, nephrology following --DM Type 2 as patient a1c is 4.9 last month, she has had normal a1c of < 6 since 2017, no need for insulins at this time --Anemia: Continue supportive care --Moderate protein malnutrition, Dietitian consult --Diastolic CHF by history; chronic with no acute excarbation --Dypshagia, continue current diet. No new complaints --Depression, stable and improved -- DVT prophylaxis:Heparin History Interval history: Patient is 49-year-old woman with a history of anemia, diabetes, heart failure, stroke, hypertension, COPD, CVA with left side deficit for which she was in [facility] rehabilitation unit from [facility], who was about to be discharge from discharge to the acute Inpatient unit for confusion and elevated blood pressure with systolic BP over 200, inability to talk which began on the weekend per Dr. Singh patient was admitted to the hospital and imaging study showed, Small areas of subacute ischemia are identified in the head of the right caudate nucleus, left parietal white matter and left splenium of the corpus callosum. Patients meds were adjusted and then discharge back to Rehab. Hospitalist Physical - Constitutional Vitals: Temp Pulse Resp BP Pulse Ox 97.8 F 72 18 101/57 99 07/14/19 11:42 07/14/19 11:44 07/14/19 07:55 07/14/19 11:44 07/14/19 11:42 General appearance: Present: no acute distress - EENT Eyes: Present: PERRL, EOM intact ENT: hearing intact, clear oral mucosa, dentition normal - Neck Neck: Present: supple, normal ROM - Respiratory Respiratory effort: normal Respiratory: bilateral: CTA - Cardiovascular Rhythm: regular Heart Sounds: Present: S1 & S2. Absent: gallop, rub - Extremities Extremities: no ischemia, No edema, Full ROM - Abdominal General gastrointestinal: soft, non-tender, non-distended, normal bowel sounds - Integumentary Integumentary: Present: clear, warm, dry - Neurologic Neurologic: CNII-XII intact, moves all extremities Results - Labs CBC & Chem 7: 07/13/19 06:38 07/13/19 06:38 Labs: Laboratory Last Values WBC 7.4 K/mm3 (4.5-11.0) 07/13/19 06:38 RBC 3.96 M/mm3 (3.65-5.03) 07/13/19 06:38 Hgb 10.6 gm/dl (10.1-14.3) 07/13/19 06:38 Hct 32.8 % (30.3-42.9) 07/13/19 06:38 MCV 83 fl (79-97) 07/13/19 06:38 MCH 27 pg (28-32) L 07/13/19 06:38 MCHC 32 % (30-34) 07/13/19 06:38 RDW 19.1 % (13.2-15.2) H 07/13/19 06:38 Plt Count 301 K/mm3 (140-440) 07/13/19 06:38 Lymph % (Auto) 7.7 % (13.4-35.0) L 07/09/19 12:28 [place] % (Auto) 5.4 % (0.0-7.3) 07/09/19 12:28 Eos % (Auto) 1.4 % (0.0-4.3) 07/09/19 12:28 Baso % (Auto) 0.2 % (0.0-1.8) 07/09/19 12:28 Lymph # 0.5 K/mm3 (1.2-5.4) L 07/09/19 12:28 [place] # 0.3 K/mm3 (0.0-0.8) 07/09/19 12:28 Eos # 0.1 K/mm3 (0.0-0.4) 07/09/19 12:28 Baso # 0.0 K/mm3 (0.0-0.1) 07/09/19 12:28 Seg Neutrophils % 85.3 % (40.0-70.0) H 07/09/19 12:28 Seg Neutrophils # 5.3 K/mm3 (1.8-7.7) 07/09/19 12:28 Sodium 136 mmol/L (137-145) L 07/13/19 06:38 Potassium 4.0 mmol/L (3.6-5.0) 07/13/19 06:38 Chloride 95.2 mmol/L (98-107) L 07/13/19 06:38 Carbon Dioxide 21 mmol/L (22-30) L 07/13/19 06:38 24 mmol/L 07/13/19 06:38 BUN 64 mg/dL (7-17) H 07/13/19 06:38 4.6 mg/dL (0.7-1.2) H 07/13/19 06:38 Estimated GFR 12 ml/min 07/13/19 06:38 14 % 07/13/19 06:38 Glucose 116 mg/dL (65-100) H 07/13/19 06:38 POC Glucose 187 (70-105) H 07/14/19 12:00 Calcium 9.3 mg/dL (8.4-10.2) 07/13/19 06:38 Active Medications - Current Medications Current Medications: Generic Name Dose Route Start Last Admin Trade Name Freq PRN Reason Stop Dose Admin Acetaminophen 650 mg 07/01/19 20:15 Tylenol PO Q6H PRN Non Cardiac Pain or Temp>100.5 Albuterol 2.5 mg 07/01/19 20:16 Proventil IH Q4HRT PRN Shortness Of Breath Aspirin 325 mg 07/02/19 08:00 07/14/19 12:04 Ecotrin PO 325 mg QDAY [facility] Administration Atorvastatin Calcium 40 mg 07/01/19 21:00 07/13/19 21:13 Lipitor PO 40 mg QHS [facility] Administration Bisacodyl 10 mg 07/01/19 20:16 Dulcolax MA QDAY PRN Constipation Bisacodyl 5 mg 07/08/19 12:19 07/08/19 12:38 Dulcolax PO 5 mg BID PRN Administration Constipation Clonidine HCl 0.1 mg 07/14/19 14:00 Catapres PO Q8HR [facility] Dextrose 50 ml 07/01/19 20:02 D50w (25gm) Syringe IV PRN PRN Hypoglycemia Ferrous Sulfate 325 mg 07/02/19 08:00 07/14/19 12:18 Feosol PO 325 mg QDAY [facility] Administration Folic Acid 1 mg 07/02/19 08:00 07/14/19 12:03 Folvite PO 1 mg QDAY [facility] Administration Heparin Sodium (Porcine) 5,000 unit 07/01/19 22:00 07/14/19 05:23 Heparin SUB-Q Not Given Q8HR [facility] Hydralazine HCl 100 mg 07/02/19 08:00 07/14/19 11:44 Apresoline PO Not Given TID [facility] Hydralazine HCl 10 mg 07/01/19 20:16 07/09/19 02:43 Apresoline IV 10 mg Q4H PRN Administration Hypertension Insulin Human Lispro 0 unit 07/01/19 22:00 07/14/19 12:02 Humalog SUB-Q 1 unit ACHS [facility] Administration Protocol Labetalol HCl 300 mg 07/01/19 22:00 07/14/19 11:44 Normodyne PO Not Given BID [facility] Nifedipine 60 mg 07/07/19 18:00 07/14/19 05:23 Procardia Xl PO 60 mg Q12H [facility] Administration Ondansetron HCl 4 mg 07/01/19 20:16 07/06/19 23:20 Zofran Odt PO 4 mg Q8H PRN Administration Nausea And Vomiting Ondansetron HCl 4 mg 07/09/19 11:00 07/10/19 06:10 Zofran IV 4 mg Q6H PRN Administration Nausea And Vomiting Pantoprazole Sodium 20 mg 07/02/19 08:00 07/14/19 12:03 Protonix PO 20 mg QDAY [facility] Administration Polyethylene Glycol 17 gm 07/01/19 20:32 07/14/19 12:04 Miralax 3350 PO 17 gm QDAY PRN Administration Constipation Nutrition/Malnutrition Assess - Dietary Evaluation Nutrition/Malnutrition Findings: Nutrition Notes Start: 07/13/19 09:26 Freq: Status: Active Protocol: Document 07/13/19 09:26 NHALL (Rec: 07/13/19 09:30 [email or web address]) Nutrition Notes Need for Assessment generated from: LOS Initial or Follow up Brief Note Current Diagnosis CKD(stage I-IV),COPD,Diabetes, Hypertension,Heart Failure Other Pertinent Diagnosis Acute CVA, Dysphagia Current Diet Cardiac/Consistent CHO mech soft with ground meats Labs/Tests BUN 64 Cr 4.6 Pertinent Medications Feosol, Folic acid Height 5 ft 4 in Weight 69.2 kg [place] Body Weight (kg) 54.54 BMI 26.2 Weight Status Overweight Subjective/Other Information Pt screened for LOS. She has consumed 59% of meals since admission. Percent of energy/protein needs met: 72% energy 97% pro Burn Absent Trauma Absent Is patient on ventilator? No Is Patient Ambulatory and/or Out of Bed Yes REE-(Bees[place]-St. Jeor-ambulatory/OOB) [ 1705.600 [id number]] Calculation Used for Recommendations [place]-St Jeor Additional Notes Pro needs 0.8-0.9g/k-62g/ day Fluid needs 1ml/kcal Nutrition Intervention Follow-Up By: 07/20/19 Additional Comments F/U: stable intakes, wt
[2019-07-15] MEDS: CATAPRES PO SCH ×3 (05:28→22:04)
[2019-07-15] MEDS: PROCARDIA XL PO SCH ×2 (05:28→18:04)
[2019-07-15] MEDS: HEPARIN SUB-Q SCH ×3 (05:28→22:04)
[2019-07-15] MEDS: HumaLOG SUB-Q SCH (08:15)
[2019-07-15] MEDS: APRESOLINE PO SCH ×3 (08:41→22:05)
--- NOTE | 2019-07-15 09:51 | Progress Note ---
Subjective Date of service: 07/15/19 Principal diagnosis: CVA Interval history: 49-year-old female admitted to outside hospital with shortness of breath and dyspnea on exertion. She is found to have a CHF exacerbation and hypertensive urgency with blood pressure 211/104. Cardiology and nephrology consults were placed. Lasix was discontinued due to elevated creatinine and should be restarted once creatinine is less than 3. Patient's baseline creatinine is 2.1- 2.2. Fluid restriction was started at 15 mL per day. Clonidine and hydralazine were both discontinued patient was continued on labetalol and verapamil. She had to iron infusions. Uncertain why patient was taken off of statin but per patient and her PCP advised not to take it. She does have a history of CVA but was only on aspirin. States statin was stopped by [employer] due to pain in left shoulder which was more likely due to tone. Statin was restarted at outside Hospital. We'll discuss secondary stroke prevention with patient made sure that she and family understand her need to continue with the statin. Patient also bernardo s a history of relapsing remitting multiple sclerosis but has not had a flair in 3 years. States she has falls about once a week. Patient is known to the service and was recently discharged to the acute care side of the hospital due to altered mental status, hypertensive emergency and ultimately CVA. Patient is participating in therapy and making reasonable progress. Taking rest breaks as needed. -BM Monitor. Denies pain, palpitations, dyspnea, cough or joint pain. Blood pressure is in a good zone this morning. Some medications have been held so far. We'll monitor and continue to adjust as needed, really need the blood pressure medications to be given has scheduled in order to be a ble to properly adjust. Overall patient states that she is feeling better, not having as many issues with dizziness. Will stop SSI and monitor Working to get BP stable on PO meds before discharge. Will also need to schedule them in a reasonable manner LUE tone a little worse this AM. Walking improved. Attempting to return to Kevin level if possible to be able to return home safely alone. All records, vitals, labs and medications were reviewed. No other issues per patient, nursing or therapy. Objective - Exam Narrative Exam: MUSCULOSKELETAL SPECIALTY EXAM CONSTITUTIONAL: Well developed, well nourished, appropriately groomed. RIGHT hand dominant. RESPIRATORY: Clear to auscultation bilaterally, no increased work of breathing CARDIOVASCULAR: Regular Rate/ Rhythm, no swelling, edema or tenderness in BUE or BLE. All extremities warm. GI: + bowel sounds, soft, NTTP, nondistended. INTEGUMENTARY: Normal, no lesion, rash, masses or bruising noted in extremities. MUSCULOSKELETAL: BUE and BLE normal without defect, crepitus, subluxation, effusion, arthritic changes or TTP. SA EF WE EE FF FA HF KE ADF EHL APF R 5/5 overall L 4-/5 4-/5 4-/5 4-/5 4-/5 4-/5 4/5 4/5 4/5 4/5 4/5 ROM decreased on left upper extremity Tone increased on left upper extremity however less than previous NEURO: Left facial droop including eye Sensation intact in all extremities without extinction. No tremor noted in 4 extremities. Follows 2 step commands. Aphasia not appreciated Dysarthria not appreciated, slowed maris with speech with slight slurring occasionally , improved Dysphagia not appreciated Neglect not appreciated POSTURE and GAIT: Sitting posture good. Balance appears reasonable seated. Patient was able to perform a stand pivot transfer with min to mod assist. Gait reasonable with slowed short steps.. PSYCH: Alert, oriented x3, affect appears flattened. Insight appears intact. - Constitutional Vitals: Vital Signs - 12hr 07/14/19 07/14/19 07/14/19 22:00 22:19 22:20 Temperature Pulse Rate 72 72 Respiratory Rate Respiratory 18 Rate [Abdomen] Blood Pressure 141/61 141/61 O2 Sat by Pulse Oximetry 07/15/19 07/15/19 07/15/19 00:15 05:08 05:28 Temperature 36.6 C 37.3 C Pulse Rate 74 80 80 Respiratory 20 20 Rate Respiratory Rate [Abdomen] Blood Pressure 121/56 131/59 131/59 O2 Sat by Pulse 98 97 Oximetry - Allied health notes Allied health notes reviewed: nursing, PT, OT FIMS assessment as documented by PT/OT/ST: Grooming Patient cleans teeth/dentures: Yes Patient young/brushes hair: Yes Patient washes, rinses and Yes dries face: Patient washes, rinses and Yes dries hands: Patient applies make-up: No Patient performs (no make-up/ 02/12 (100%) shaving): Grooming FIM Score 5. Supervision ([place] applies toothpaste or opens containers.) Toileting Toileting Device Commode over Toilet Patient able to: Adjust clothes before,Clean self,Adjust clothes after Patient able to perform: 3/3 (100%) Toileting FIM Score 4. Minimal Assistance (Patient = 75% or more. Needs touching.) Social interaction/Memory/Problem solving Social Interaction FIM Score 5. Supervision (Needs supv. <10%. Needs encouragement to participate.) Memory FIM Score 5. Supervision (Needs cueing <10%, stressful/ unfamiliar situations.) Problem Solving FIM Score 5. Supervision (Needs cueing <10% to solve routine problems.) Transfers Mode of Locomotion: Wheelchair Bed/Chair/Wheelchair Transfers 4. Minimal Assistance (Patient = 75% or more. FIM Score Needs touching.) Toilet Transfers FIM Score 4. Minimal Assistance (Patient = 75% or more. Needs touching.) Patient transferred to: Shower Shower Transfers FIM Score 4. Minimal Assistance (Patient = 75% or more. Needs touching.) Locomotion- Stairs Device used on Stairs Handrail/s Number of Stairs Ascended/ 8 Descended Patient used handrail/support: Yes Stairs FIM Score 2. Maximal Assistance (Patient = 25% or more, 4- 6 stairs.) Locomotion- walk/wheelchair Most Frequent Mode of Wheelchair Locomotion: Ambulation Distance 110 Walking FIM Score 2. Maximal Assistance (Patient = 25% or more. Minimum of 50 ft.) Wheelchair Propulsion Distance 125 Wheelchair FIM Score 2. Maximal Assistance (Patient = 25% or more. Minimum of 50 ft.) Eating Eating FIM Score 5. Supervision/Set-Up (Needs help w/ containers, cutting meat, etc.) Dressing-Upper body Patient retrieves clothing No items: Patient applies/removes UE No prosthesis or orthosis: Upper Body Dressing FIM Score 3. Moderate Assistance (Patient = 50% or more) Dressing-lower body Patient retrieves clothing No items: Patient applies/removes LE No prosthesis or orthosis: Lower Body Dressing FIM Score 5. Supv./Set-Up ([place] sets out clothes or applies pros./orth.) - Labs CBC & Chem 7: 07/13/19 06:38 07/15/19 06:31 Labs: Laboratory Results - last 72 hr 07/12/19 07/12/19 07/12/19 12:33 16:13 21:45 WBC RBC Hgb Hct MCV MCH MCHC RDW Plt Count Sodium Potassium Chloride Carbon Dioxide Anion Gap BUN Creatinine Estimated GFR BUN/Creatinine Ratio Glucose POC Glucose 174 H 160 H 195 H Calcium 07/13/19 07/13/19 07/13/19 06:38 06:38 07:26 WBC 7.4 RBC 3.96 Hgb 10.6 Hct 32.8 MCV 83 MCH 27 L MCHC 32 RDW 19.1 H Plt Count 301 Sodium 136 L Potassium 4.0 Chloride 95.2 L Carbon Dioxide 21 L Anion Gap 24 BUN 64 H Creatinine 4.6 H Estimated GFR 12 BUN/Creatinine Ratio 14 Glucose 116 H POC Glucose 134 H Calcium 9.3 07/13/19 07/13/19 07/13/19 11:25 16:13 21:31 WBC RBC Hgb Hct MCV MCH MCHC RDW Plt Count Sodium Potassium Chloride Carbon Dioxide Anion Gap BUN Creatinine Estimated GFR BUN/Creatinine Ratio Glucose POC Glucose 202 H 218 H 151 H Calcium 07/14/19 07/14/19 07/14/19 08:02 12:00 16:29 WBC RBC Hgb Hct MCV MCH MCHC RDW Plt Count Sodium Potassium Chloride Carbon Dioxide Anion Gap BUN Creatinine Estimated GFR BUN/Creatinine Ratio Glucose POC Glucose 169 H 187 H 222 H Calcium 07/14/19 07/15/19 07/15/19 21:05 06:31 07:45 WBC RBC Hgb Hct MCV MCH MCHC RDW Plt Count Sodium 139 Potassium 4.1 Chloride 99.9 Carbon Dioxide 23 Anion Gap 20 BUN 63 H Creatinine 4.4 H Estimated GFR 13 BUN/Creatinine Ratio 14 Glucose 160 H POC Glucose 264 H 215 H Calcium 9.0 Assessment and Plan CVA with Left nondominant hemiplegia: discussed secondary stroke prevention and prognosis. continue medications and monitor for worsening neurologic condition. LUE spasticity: Stretching with OT, continue splinting. CKD with acute exacerbation: avoid nephrotoxic medications, monitor renal function, nephrology consult. Elevated CREA, bumex d/c'd by nephro, monitor HTN: continue medications, adjust for normotension, nephrology consulted due to renal component. Q4h vitals. PRN coverage available. Better control now, will need better PO control and schedule prior to d/c. DM 2: stop SSI, and monitor GLU. A1c was normal. N/V: Zofran available, monitor. Resolved Z73.6 ADL dysfunction: OT will work on improving ability to perform ADLs (including assistive devices) to increase independence and decrease caregiver burden and improve functional transfers and mobility training. R26.2 Difficulty walking: PT will work on gait training and proper use of assistive devices and advance as appropriate to use of stairs and outside ambulation on uneven surfaces. R26.81 Unsteadiness on feet: PT will work on improving static and dynamic sitting and standing balance as well as proper use of assistive devices to decrease risk of falls. R26.89 Abnormality of gait: PT will work to improve safety and efficiency of gait through neuromotor training and gait training along with instruction on proper use of assistive devices. M62.81 Muscle weakness: PT & OT will work on strengthening exercises to improve functional strength including mixture of closed and open kinetic chain exercises. R53.81 Debility: PT & OT will work on improving overall functional status to improve participation with ADLs, mobility and social involvement. R53.83 Fatigue: PT & OT will work on improving endurance through aerobic exer cises and therapeutic activity while monitoring patients tolerance for activity and vital signs as needed. MS: monitor for any worsening symptoms DVT ppx: heparin Pain: Continue physical modalities in therapy and pain medications as needed to achieve functional pain control. Sleep: Monitor and address as needed. Bowel: Monitor and address as needed. PRN meds available Appetite: Monitor and address as needed. Discharge planning: Pending therapy progress and care plan meeting. Will continue discussion with therapy team, SW, patient and family. Restrictions/ Precautions: Falls WB status: FWB Functional Hx: ADLs: Independent Cognition: Independent Mobility: RW Barriers to Discharge: Decreased mobility and ability to perform self care, balance deficits, weakness, spasticity Estimated Length of Stay: 10-14 days Discharge Destination: Home with family, will need some assistance at home, will continue to work towards highest level of independence.
--- NOTE | 2019-07-15 11:30 | Progress Note ---
Assessment and Plan - Patient Problems (1) Chronic kidney disease, stage 4 (severe) Current Visit: Yes Status: Acute Plan to address problem: Kidney function marginally decreased, cont. to hold bumex. avoid nephrotoxins, NSAIDs, IV contrast. Follow-up electrolytes and renal function periodically. no acute indication for renal replacement therapy at present (2) Heart failure with preserved ejection fraction Current Visit: No Status: Acute Plan to address problem: Appears to be euvolemic. Continue medications (3) Hypertensive chronic kidney disease with stage 1 through stage 4 chronic kidney disease, or unspecified chronic kidney disease Current Visit: No Status: Chronic Plan to address problem: BP improved on current meds. holding bumex given marginally declined eGFR. Follow-up blood pressure on the adjusted medications. (4) Type 2 diabetes mellitus with diabetic chronic kidney disease Current Visit: No Status: Chronic Plan to address problem: Blood sugar management by primary attending (5) Cerebrovascular accident (CVA) Current Visit: Yes Status: Acute Plan to address problem: Continue OT/PT Subjective Date of service: 07/15/19 Principal diagnosis: CVA Interval history: pt awake, alert, in no acute distress Objective - Vital Signs Vital signs: Vital Signs - 12hr 07/15/19 07/15/19 07/15/19 00:15 05:08 05:28 Temperature 97.9 F 99.1 F Pulse Rate 74 80 80 Respiratory 20 20 Rate Blood Pressure 121/56 131/59 131/59 O2 Sat by Pulse 98 97 Oximetry - General Appearance General appearance: well-developed, well-nourished, appears stated age EENT: ATNC, PERRL, mucous membranes moist Neck: no JVD Respiratory: Present: Clear to Ascultation Cardiology: regular, S1S2 Gastrointestinal: normoactive bowel sounds, obese Integumentary: no rash, other (no edema ) Neurologic: no focal deficit, alert and oriented x3, strength 5/5, CN 3-[address] Psychiatric: mood/affect appropriate, cooperative - Lab 07/13/19 06:38 07/15/19 06:31 Most recent lab results Calcium 9.0 mg/dL (8.4-10.2) 07/15/19 06:31 Medications & Allergies - Medications Allergies/Adverse Reactions: Allergies amlodipine besylate [From [facility]] Allergy (Verified 01/21/14 20:31) Vomiting hydromorphone HCl [From Dilaudid] Allergy (Verified 01/21/14 20:31) Vomiting lisinopril Allergy (Verified 01/21/14 20:31) Unknown Home Medications: Home Medications Medication Instructions Recorded Confirmed Last Taken Type Acetaminophen [Acetaminophen TAB] 650 mg PO Q4H PRN 30 Days tablet 06/21/19 07/02/19 07/01/19 Rx Aspirin EC 325 mg PO QDAY 30 Days tablet 06/21/19 07/02/19 07/01/19 Rx 325 AtorvaSTATin [Lipitor] 40 mg PO QHS 30 Days tablet 06/21/19 07/02/19 07/01/19 Rx 40 Ferrous Sulfate [Feosol 325 MG tab] 325 mg PO QDAY tablet 06/21/19 07/02/19 07/01/19 Rx 325 Folic Acid [Folvite] 1 mg PO QDAY tablet 06/21/19 07/02/19 07/01/19 Rx 1 Ondansetron [Zofran ODT TAB] 4 mg PO Q6H PRN 30 Days tab.rapdis 06/21/19 07/02/19 07/01/19 Rx 4 Clonidine HCl [Catapres] 0.3 mg PO BID 06/27/19 07/02/19 07/01/19 History 0.3 Insulin Glargine [Lantus] 5 units SQ QHS 06/27/19 07/02/19 07/01/19 History 2 Labetalol HCl [Labetalol 300mg TAB] 300 mg PO BID 06/27/19 07/02/19 07/01/19 History 300 hydrALAZINE [Apresoline TAB] 100 mg PO TID 06/27/19 07/02/19 07/01/19 History 325 Lansoprazole Solutab [Prevacid 30 mg FEEDTUBE QDAY tab.rapdis 07/01/19 07/02/19 07/01/19 Rx Solutab] Lipase/Protease/Amylase [Pancreaze 1 each FEEDTUBE PRN PRN capsule 07/01/19 07/02/19 07/01/[address] 10,500 Unit] 1 Sennosides Tab [Senokot] 8.6 mg PO Q12H PRN tablet 07/01/19 07/02/19 07/01/19 Rx 8.6 Active Medications: Generic Name Dose Route Start Last Admin Trade Name Freq PRN Reason Stop Dose Admin Acetaminophen 650 mg 07/01/19 20:15 Tylenol PO Q6H PRN Non Cardiac Pain or Temp>100.5 Albuterol 2.5 mg 07/01/19 20:16 Proventil IH Q4HRT PRN Shortness Of Breath Aspirin 325 mg 07/02/19 08:00 07/14/19 12:04 Ecotrin PO 325 mg QDAY CASPER Administration Atorvastatin Calcium 40 mg 07/01/19 21:00 07/14/19 22:20 Lipitor PO 40 mg QHS CASPER Administration Bisacodyl 10 mg 07/01/19 20:16 Dulcolax ID QDAY PRN Constipation Bisacodyl 5 mg 07/08/19 12:19 07/08/19 12:38 Dulcolax PO 5 mg BID PRN Administration Constipation Clonidine HCl 0.1 mg 07/14/19 14:00 07/15/19 05:28 Catapres PO 0.1 mg Q8HR CASPER Administration Dextrose 50 ml 07/01/19 20:02 D50w (25gm) Syringe IV PRN PRN Hypoglycemia Ferrous Sulfate 325 mg 07/02/19 08:00 07/14/19 12:18 Feosol PO 325 mg QDAY CASPER Administration Folic Acid 1 mg 07/02/19 08:00 07/14/19 12:03 Folvite PO 1 mg QDAY CASPER Administration Heparin Sodium (Porcine) 5,000 unit 07/01/19 22:00 07/15/19 05:28 Heparin SUB-Q Not Given Q8HR CASPER Hydralazine HCl 100 mg 07/02/19 08:00 07/14/19 22:20 Apresoline PO 100 mg TID CASPER Administration Hydralazine HCl 10 mg 07/01/19 20:16 07/09/19 02:43 Apresoline IV 10 mg Q4H PRN Administration Hypertension Labetalol HCl 300 mg 07/01/19 22:00 07/14/19 22:19 Normodyne PO 300 mg BID CASPER Administration Nifedipine 60 mg 07/07/19 18:00 07/15/19 05:28 Procardia Xl PO 60 mg Q12H CASPER Administration Ondansetron HCl 4 mg 07/01/19 20:16 07/06/19 23:20 Zofran Odt PO 4 mg Q8H PRN Administration Nausea And Vomiting Ondansetron HCl 4 mg 07/09/19 11:00 07/10/19 06:10 Zofran IV 4 mg Q6H PRN Administration Nausea And Vomiting Pantoprazole Sodium 20 mg 07/02/19 08:00 07/14/19 12:03 Protonix PO 20 mg QDAY CASPER Administration Polyethylene Glycol 17 gm 07/01/19 20:32 07/14/19 12:04 Miralax 3350 PO 17 gm QDAY PRN Administration Constipation
--- NOTE | 2019-07-15 12:19 | Progress Note ---
Assessment and Plan Assessment and plan: --Acute ischemic stroke; left-sided weakness Continue therapy as prescribed. Continue ASA and statin, PT and OT rehabilitation MRI brain revealed small areas of subacute ischemia are identified in the head of the right caudate nucleus, left parietal white matter and left splenium of the corpus callosum as described. Volume loss. Advanced chronic white matter changes. Chronic focal infarcts in the right zavala radiata and inferior left cerebellum. --Malignant hypertension;Well controlled, On multiple high-dose antihypertensives and when necessary medications, Closely monitor blood pressures and, adjust doses as needed --Acute metabolic Hypertensive encephalopathy: Improving as blood pressure comes down --[place] stool 07/10 resolved, stool for occult blood was negative Patient refused blood tests for H&H --Nausea/vomiting/Acute gastritis: antiemetics,protonix and supportive care improved --CKD stage 4, unchanged, avoid nephrotoxins, nephrology following --DM Type 2 as patient a1c is 4.9 last month, she has had normal a1c of < 6 since 2017, no need for insulins at this time --Anemia: Continue supportive care --Moderate protein malnutrition, Dietitian consult --Diastolic CHF by history; chronic with no acute excarbation --Dypshagia, continue current diet. No new complaints --Depression, stable and improved -- DVT prophylaxis:Heparin History Interval history: Patient is 49-year-old woman with a history of anemia, diabetes, heart failure, stroke, hypertension, COPD, CVA with left side deficit for which she was in [facility] rehabilitation unit from [facility], who was about to be discharge from discharge to the acute Inpatient unit for confusion and elevated blood pressure with systolic BP over 200, inability to talk which began on the weekend per Dr. Singh patient was admitted to the hospital and imaging study showed, Small areas of subacute ischemia are identified in the head of the right caudate nucleus, left parietal white matter and left splenium of the corpus callosum. Patients meds were adjusted and then discharge back to Rehab. Hospitalist Physical - Constitutional Vitals: Temp Pulse Resp BP Pulse Ox 99.1 F 80 20 131/59 97 07/15/19 05:08 07/15/19 05:28 07/15/19 05:08 07/15/19 05:28 07/15/19 05:08 General appearance: Present: no acute distress - EENT Eyes: Present: PERRL, EOM intact ENT: hearing intact, clear oral mucosa, dentition normal - Neck Neck: Present: supple, normal ROM - Respiratory Respiratory effort: normal Respiratory: bilateral: CTA - Cardiovascular Rhythm: regular Heart Sounds: Present: S1 & S2. Absent: gallop, rub - Extremities Extremities: no ischemia, No edema, Full ROM - Abdominal General gastrointestinal: soft, non-tender, non-distended, normal bowel sounds - Integumentary Integumentary: Present: clear, warm, dry - Neurologic Neurologic: CNII-XII intact, moves all extremities Results - Labs CBC & Chem 7: 07/13/19 06:38 07/15/19 06:31 Labs: Laboratory Last Values WBC 7.4 K/mm3 (4.5-11.0) 07/13/19 06:38 RBC 3.96 M/mm3 (3.65-5.03) 07/13/19 06:38 Hgb 10.6 gm/dl (10.1-14.3) 07/13/19 06:38 Hct 32.8 % (30.3-42.9) 07/13/19 06:38 MCV 83 fl (79-97) 07/13/19 06:38 MCH 27 pg (28-32) L 07/13/19 06:38 MCHC 32 % (30-34) 07/13/19 06:38 RDW 19.1 % (13.2-15.2) H 07/13/19 06:38 Plt Count 301 K/mm3 (140-440) 07/13/19 06:38 Lymph % (Auto) 7.7 % (13.4-35.0) L 07/09/19 12:28 Kimble % (Auto) 5.4 % (0.0-7.3) 07/09/19 12:28 Eos % (Auto) 1.4 % (0.0-4.3) 07/09/19 12:28 Baso % (Auto) 0.2 % (0.0-1.8) 07/09/19 12:28 Lymph # 0.5 K/mm3 (1.2-5.4) L 07/09/19 12:28 Kimble # 0.3 K/mm3 (0.0-0.8) 07/09/19 12:28 Eos # 0.1 K/mm3 (0.0-0.4) 07/09/19 12:28 Baso # 0.0 K/mm3 (0.0-0.1) 07/09/19 12:28 Seg Neutrophils % 85.3 % (40.0-70.0) H 07/09/19 12:28 Seg Neutrophils # 5.3 K/mm3 (1.8-7.7) 07/09/19 12:28 Sodium 139 mmol/L (137-145) 07/15/19 06:31 Potassium 4.1 mmol/L (3.6-5.0) 07/15/19 06:31 Chloride 99.9 mmol/L (98-107) 07/15/19 06:31 Carbon Dioxide 23 mmol/L (22-30) 07/15/19 06:31 20 mmol/L 07/15/19 06:31 BUN 63 mg/dL (7-17) H 07/15/19 06:31 4.4 mg/dL (0.7-1.2) H 07/15/19 06:31 Estimated GFR 13 ml/min 07/15/19 06:31 14 % 07/15/19 06:31 Glucose 160 mg/dL (65-100) H 07/15/19 06:31 POC Glucose 114 (70-105) H 07/15/19 11:50 Calcium 9.0 mg/dL (8.4-10.2) 07/15/19 06:31 Active Medications - Current Medications Current Medications: Generic Name Dose Route Start Last Admin Trade Name Freq PRN Reason Stop Dose Admin Acetaminophen 650 mg 07/01/19 20:15 Tylenol PO Q6H PRN Non Cardiac Pain or Temp>100.5 Albuterol 2.5 mg 07/01/19 20:16 Proventil IH Q4HRT PRN Shortness Of Breath Aspirin 325 mg 07/02/19 08:00 07/14/19 12:04 Ecotrin PO 325 mg QDAY CASPER Administration Atorvastatin Calcium 40 mg 07/01/19 21:00 07/14/19 22:20 Lipitor PO 40 mg QHS CASPER Administration Bisacodyl 10 mg 07/01/19 20:16 Dulcolax UT QDAY PRN Constipation Bisacodyl 5 mg 07/08/19 12:19 07/08/19 12:38 Dulcolax PO 5 mg BID PRN Administration Constipation Clonidine HCl 0.1 mg 07/14/19 14:00 07/15/19 05:28 Catapres PO 0.1 mg Q8HR CASPER Administration Dextrose 50 ml 07/01/19 20:02 D50w (25gm) Syringe IV PRN PRN Hypoglycemia Ferrous Sulfate 325 mg 07/02/19 08:00 07/14/19 12:18 Feosol PO 325 mg QDAY CASPER Administration Folic Acid 1 mg 07/02/19 08:00 07/14/19 12:03 Folvite PO 1 mg QDAY CASPER Administration Heparin Sodium (Porcine) 5,000 unit 07/01/19 22:00 07/15/19 05:28 Heparin SUB-Q Not Given Q8HR CASPER Hydralazine HCl 100 mg 07/02/19 08:00 07/14/19 22:20 Apresoline PO 100 mg TID CASPER Administration Hydralazine HCl 10 mg 07/01/19 20:16 07/09/19 02:43 Apresoline IV 10 mg Q4H PRN Administration Hypertension Labetalol HCl 300 mg 07/01/19 22:00 07/14/19 22:19 Normodyne PO 300 mg BID CASPER Administration Nifedipine 60 mg 07/07/19 18:00 07/15/19 05:28 Procardia Xl PO 60 mg Q12H CASPER Administration Ondansetron HCl 4 mg 07/01/19 20:16 07/06/19 23:20 Zofran Odt PO 4 mg Q8H PRN Administration Nausea And Vomiting Ondansetron HCl 4 mg 07/09/19 11:00 07/10/19 06:10 Zofran IV 4 mg Q6H PRN Administration Nausea And Vomiting Pantoprazole Sodium 20 mg 07/02/19 08:00 07/14/19 12:03 Protonix PO 20 mg QDAY CASPER Administration Polyethylene Glycol 17 gm 07/01/19 20:32 07/14/19 12:04 Miralax 3350 PO 17 gm QDAY PRN Administration Constipation Nutrition/Malnutrition Assess - Dietary Evaluation Nutrition/Malnutrition Findings: Nutrition Notes Start: 07/13/19 09:26 Freq: Status: Active Protocol: Document 07/13/19 09:26 JAZMYN (Rec: 07/13/19 09:30 [email or web address] [id number] [email or web address]) Nutrition Notes Need for Assessment generated from: LOS Initial or Follow up Brief Note Current Diagnosis CKD(stage I-IV),COPD,Diabetes, Hypertension,Heart Failure Other Pertinent Diagnosis Acute CVA, Dysphagia Current Diet Cardiac/Consistent CHO mech soft with ground meats Labs/Tests BUN 64 Cr 4.6 Pertinent Medications Feosol, Folic acid Height 5 ft 4 in Weight 69.2 kg [place] Body Weight (kg) 54.54 BMI 26.2 Weight Status Overweight Subjective/Other Information Pt screened for LOS. She has consumed 59% of meals since admission. Percent of energy/protein needs met: 72% energy 97% pro Burn Absent Trauma Absent Is patient on ventilator? No Is Patient Ambulatory and/or Out of Bed Yes REE-([facility]-ambulatory/OOB) [ 1705.600 [id number]] Calculation Used for Recommendations [facility] Additional Notes Pro needs 0.8-0.9g/k-62g/ day Fluid needs 1ml/kcal Nutrition Intervention Follow-Up By: 07/20/19 Additional Comments F/U: stable intakes, wt
[2019-07-15] MEDS: NORMODYNE PO SCH ×2 (12:30→22:03)
[2019-07-15] MEDS: PROTONIX PO SCH (13:00)
[2019-07-15] MEDS: FOLVITE PO SCH (13:00)
[2019-07-15] MEDS: FEOSOL PO SCH (13:00)
[2019-07-15] MEDS: ECOTRIN PO SCH (16:45)
[2019-07-16] MEDS: PROCARDIA XL PO SCH ×2 (05:40→17:47)
[2019-07-16] MEDS: CATAPRES PO SCH ×3 (05:44→22:50)
[2019-07-16] MEDS: HEPARIN SUB-Q SCH ×4 (05:44→23:00)
[2019-07-16] MEDS: MIRALAX 3350 PO PRN (06:29)
[2019-07-16] MEDS: FEOSOL PO SCH (09:12)
[2019-07-16] MEDS: ECOTRIN PO SCH (09:12)
[2019-07-16] MEDS: NORMODYNE PO SCH ×2 (09:13→22:51)
[2019-07-16] MEDS: PROTONIX PO SCH (09:13)
[2019-07-16] MEDS: FOLVITE PO SCH (09:14)
[2019-07-16] MEDS: APRESOLINE PO SCH ×3 (09:17→23:02)
--- NOTE | 2019-07-16 09:57 | Progress Note ---
Subjective Date of service: 07/16/19 Principal diagnosis: CVA Interval history: 49-year-old female admitted to outside hospital with shortness of breath and dyspnea on exertion. She is found to have a CHF exacerbation and hypertensive urgency with blood pressure 211/104. Cardiology and nephrology consults were placed. Lasix was discontinued due to elevated creatinine and should be restarted once creatinine is less than 3. Patient's baseline creatinine is 2.1- 2.2. Fluid restriction was started at 15 mL per day. Clonidine and hydralazine were both discontinued patient was continued on labetalol and verapamil. She had to iron infusions. Uncertain why patient was taken off of statin but per patient and her PCP advised not to take it. She does have a history of CVA but was only on aspirin. States statin was stopped by GAME TECHNICIAN due to pain in left shoulder which was more likely due to tone. Statin was restarted at outside Hospital. We'll discuss secondary stroke prevention with patient made sure that she and family understand her need to continue with the statin. Patient also bernardo s a history of relapsing remitting multiple sclerosis but has not had a flair in 3 years. States she has falls about once a week. Patient is known to the service and was recently discharged to the acute care side of the hospital due to altered mental status, hypertensive emergency and ultimately CVA. Patient is participating in therapy and making reasonable progress. Taking rest breaks as needed. -BM reminded her about supository. Monitor. Denies pain, palpitations, dyspnea, cough or joint pain. Overall patient states that she is feeling better, not having any issues with dizziness. BP is finally stable in a somewhat acceptable range. Still slightly elevated in 140s SBP. No meds held since yesterday and no episodes of hypotension. Feels better on just 0.1mg Clonidine. LUE tone a little worse this AM. Walking improved - QC now. Attempting to return to Kevin level if possible to be able to return home safely alone. Discussed in team conference. Getting close to baseline. Having issues with LOB still. Will need supervision at this point. Will connect with family to see if they have made any progress in finding a PCH. Would be ok if she went home with family. Look to DC next week All records, vitals, labs and medications were reviewed. No other issues per patient, nursing or therapy. Objective - Exam Narrative Exam: MUSCULOSKELETAL SPECIALTY EXAM CONSTITUTIONAL: Well developed, well nourished, appropriately groomed. RIGHT hand dominant. More interactive today RESPIRATORY: Clear to auscultation bilaterally, no increased work of breathing CARDIOVASCULAR: Regular Rate/ Rhythm, no swelling, edema or tenderness in BUE or BLE. All extremities warm. GI: + bowel sounds, soft, NTTP, nondistended. INTEGUMENTARY: Normal, no lesion, rash, masses or bruising noted in extremities. MUSCULOSKELETAL: BUE and BLE normal without defect, crepitus, subluxation, effusion, arthritic changes or TTP. SA EF WE EE FF FA HF KE ADF EHL APF R 5/5 overall L 4-/5 4-/5 4-/5 4-/5 4-/5 4-/5 4/5 4/5 4/5 4/5 4/5 ROM decreased on left upper extremity Tone increased on left upper extremity NEURO: Left facial droop including eye Sensation intact in all extremities without extinction. No tremor noted in 4 extremities. Follows 2 step commands. Aphasia not appreciated Dysarthria not appreciated, slowed maris with speech with slight slurring occasionally , improved Dysphagia not appreciated Neglect not appreciated POSTURE and GAIT: Sitting posture good. Balance appears reasonable seated. Patient was able to perform a stand pivot transfer with min to mod assist. Gait reasonable with slowed short steps.. PSYCH: Alert, oriented x3, affect appears flattened. Insight appears intact. - Constitutional Vitals: Vital Signs - 12hr 07/15/19 07/16/19 07/16/19 22:03 04:59 05:31 Temperature 36.7 C 36.8 C Pulse Rate 86 80 80 Respiratory 18 20 Rate Blood Pressure 145/73 140/70 144/69 Blood Pressure [Right] O2 Sat by Pulse 97 98 Oximetry 07/16/19 07/16/19 05:44 08:48 Temperature 36.5 C Pulse Rate 80 71 Respiratory 18 Rate Blood Pressure 144/69 Blood Pressure 122/63 [Right] O2 Sat by Pulse 100 Oximetry - Allied health notes Allied health notes reviewed: nursing, PT, OT FIMS assessment as documented by PT/OT/ST: Grooming Patient cleans teeth/dentures: Yes Patient young/brushes hair: Yes Patient washes, rinses and Yes dries face: Patient washes, rinses and Yes dries hands: Patient applies make-up: No Patient performs (no make-up/ 4/4 (100%) shaving): Grooming FIM Score 5. Supervision (Jefferson applies toothpaste or opens containers.) Toileting Toileting Device Commode over Toilet Patient able to: Adjust clothes before,Clean self,Adjust clothes after Patient able to perform: 3/3 (100%) Toileting FIM Score 4. Minimal Assistance (Patient = 75% or more. Needs touching.) Social interaction/Memory/Problem solving Social Interaction FIM Score 7. Complete [place] (Interacts appropriately. Controls temper.) Memory FIM Score 7. Complete [place] (Remembers people and routines.) Problem Solving FIM Score 6. Mod. [place]ata[place] (Mild difficulty or needs more time w/ complex.) Transfers Mode of Locomotion: Wheelchair Bed/Chair/Wheelchair Transfers 4. Minimal Assistance (Patient = 75% or more. FIM Score Needs touching.) Toilet Transfers FIM Score 4. Minimal Assistance (Patient = 75% or more. Needs touching.) Patient transferred to: Shower Shower Transfers FIM Score 4. Minimal Assistance (Patient = 75% or more. Needs touching.) Locomotion- Stairs Device used on Stairs Handrail/s Number of Stairs Ascended/ 12 Descended Patient used handrail/support: Yes Stairs FIM Score 4. Minimal Assistance (Patient = 75% or more, touching. 12-14 stairs.) Locomotion- walk/wheelchair Most Frequent Mode of Wheelchair Locomotion: Ambulation Distance 135 Walking FIM Score 2. Maximal Assistance (Patient = 25% or more. Minimum of 50 ft.) Wheelchair Propulsion Distance 125 Wheelchair FIM Score 2. Maximal Assistance (Patient = 25% or more. Minimum of 50 ft.) Eating Eating FIM Score 5. Supervision/Set-Up (Needs help w/ containers, cutting meat, etc.) Dressing-Upper body Patient retrieves clothing No items: Patient applies/removes UE No prosthesis or orthosis: Upper Body Dressing FIM Score 3. Moderate Assistance (Patient = 50% or more) Dressing-lower body Patient retrieves clothing No items: Patient applies/removes LE No prosthesis or orthosis: Lower Body Dressing FIM Score 4. Minimal Assistance (Patient = 75% or more. Needs touching.) - Labs CBC & Chem 7: 07/13/19 06:38 07/15/19 06:31 Labs: Laboratory Results - last 72 hr 07/13/19 07/13/19 07/13/19 11:25 16:13 21:31 Sodium Potassium Chloride Carbon Dioxide Anion Gap BUN Creatinine Estimated GFR BUN/Creatinine Ratio Glucose POC Glucose 202 H 218 H 151 H Calcium 07/14/19 07/14/19 07/14/19 08:02 12:00 16:29 Sodium Potassium Chloride Carbon Dioxide Anion Gap BUN Creatinine Estimated GFR BUN/Creatinine Ratio Glucose POC Glucose 169 H 187 H 222 H Calcium 07/14/19 07/15/19 07/15/19 21:05 06:31 07:45 Sodium 139 Potassium 4.1 Chloride 99.9 Carbon Dioxide 23 Anion Gap 20 BUN 63 H Creatinine 4.4 H Estimated GFR 13 BUN/Creatinine Ratio 14 Glucose 160 H POC Glucose 264 H 215 H Calcium 9.0 07/15/19 07/15/19 07/16/19 11:50 20:48 07:51 Sodium Potassium Chloride Carbon Dioxide Anion Gap BUN Creatinine Estimated GFR BUN/Creatinine Ratio Glucose POC Glucose 114 H 231 H 197 H Calcium Assessment and Plan CVA with Left nondominant hemiplegia: discussed secondary stroke prevention and prognosis. continue medications and monitor for worsening neurologic condition. LUE spasticity: Stretching with OT, continue splinting. CKD with acute exacerbation: avoid nephrotoxic medications, monitor renal function, nephrology consult. Elevated CREA, bumex d/c'd by nephro, monitor HTN: continue medications, adjust for normotension, nephrology consulted due to renal component. Q4h vitals. PRN coverage available. Better control now, will need better PO control and schedule prior to d/c. DM 2: stop SSI, and monitor GLU. A1c was normal. N/V: Zofran available, monitor. Resolved Z73.6 ADL dysfunction: OT will work on improving ability to perform ADLs (including assistive devices) to increase independence and decrease caregiver burden and improve functional transfers and mobility training. R26.2 Difficulty walking: PT will work on gait training and proper use of assistive devices and advance as appropriate to use of stairs and outside ambulation on uneven surfaces. R26.81 Unsteadiness on feet: PT will work on improving static and dynamic sitting and standing balance as well as proper use of assistive devices to decrease risk of falls. R26.89 Abnormality of gait: PT will work to improve safety and efficiency of gait through neuromotor training and gait training along with instruction on proper use of assistive devices. M62.81 Muscle weakness: PT & OT will work on strengthening exercises to improve functional strength including mixture of closed and open kinetic chain exercises. R53.81 Debility: PT & OT will work on improving overall functional status to improve participation with ADLs, mobility and social involvement. R53.83 Fatigue: PT & OT will work on improving endurance through aerobic exercises and therapeutic activity while monitoring patients tolerance for activity and vital signs as needed. MS: monitor for any worsening symptoms DVT ppx: heparin - refusing, have discussed that she needs to take it Pain: Continue physical modalities in therapy and pain medications as needed to achieve functional pain control. Sleep: Monitor and address as needed. Bowel: Monitor and address as needed. PRN meds available Appetite: Monitor and address as needed. Discharge planning: Pending therapy progress and care plan meeting. Will continue discussion with therapy team, SW, patient and family. Restrictions/ Precautions: Falls WB status: FWB Functional Hx: ADLs: Independent Cognition: Independent Mobility: RW Barriers to Discharge: Decreased mobility and ability to perform self care, balance deficits, weakness, spasticity Estimated Length of Stay: 10-14 days Discharge Destination: Home with family, will need some assistance at home, will continue to work towards highest level of independence.
--- NOTE | 2019-07-16 15:38 | Progress Note ---
Assessment and Plan Assessment and plan: --Acute ischemic stroke; left-sided weakness Continue therapy as prescribed. Continue ASA and statin, PT and OT rehabilitation MRI brain revealed small areas of subacute ischemia are identified in the head of the right caudate nucleus, left parietal white matter and left splenium of the corpus callosum as described. Volume loss. Advanced chronic white matter changes. Chronic focal infarcts in the right zavala radiata and inferior left cerebellum. --Malignant hypertension;Well controlled, On multiple high-dose antihypertensives and when necessary medications, Closely monitor blood pressures and, adjust doses as needed --Acute metabolic Hypertensive encephalopathy: Improving as blood pressure comes down --Black [place] stool 07/10 resolved, stool for occult blood was negative Patient refused blood tests for H&H --Nausea/vomiting/Acute gastritis: antiemetics,protonix and supportive care improved --CKD stage 4, unchanged, avoid nephrotoxins, nephrology following --DM Type 2 as patient a1c is 4.9 last month, she has had normal a1c of < 6 since 2017, no need for insulins at this time --Anemia: Continue supportive care --Moderate protein malnutrition, Dietitian consult --Diastolic CHF by history; chronic with no acute excarbation --Dypshagia, continue current diet. No new complaints --Depression, stable and improved -- DVT prophylaxis:Heparin History Interval history: Patient is 49-year-old woman with a history of anemia, diabetes, heart failure, stroke, hypertension, COPD, CVA with left side deficit for which she was in [facility] rehabilitation unit from [facility], who was about to be discharge from discharge to the acute Inpatient unit for confusion and elevated blood pressure with systolic BP over 200, inability to talk which began on the weekend per Dr. Singh patient was admitted to the hospital and imaging study showed, Small areas of subacute ischemia are identified in the head of the right caudate nucleus, left parietal white matter and left splenium of the corpus callosum. Patients meds were adjusted and then discharge back to Rehab. Hospitalist Physical - Constitutional Vitals: Temp Pulse Resp BP Pulse Ox 97.7 F 74 18 123/63 99 07/16/19 12:17 07/16/19 14:06 07/16/19 12:17 07/16/19 14:06 07/16/19 12:17 General appearance: Present: no acute distress - EENT Eyes: Present: PERRL, EOM intact ENT: hearing intact, clear oral mucosa, dentition normal - Neck Neck: Present: supple, normal ROM - Respiratory Respiratory effort: normal Respiratory: bilateral: CTA - Cardiovascular Rhythm: regular Heart Sounds: Present: S1 & S2. Absent: gallop, rub - Extremities Extremities: no ischemia, No edema, Full ROM - Abdominal General gastrointestinal: soft, non-tender, non-distended, normal bowel sounds - Integumentary Integumentary: Present: clear, warm, dry - Neurologic Neurologic: CNII-XII intact, moves all extremities Results - Labs CBC & Chem 7: 07/13/19 06:38 07/15/19 06:31 Labs: Laboratory Last Values WBC 7.4 K/mm3 (4.5-11.0) 07/13/19 06:38 RBC 3.96 M/mm3 (3.65-5.03) 07/13/19 06:38 Hgb 10.6 gm/dl (10.1-14.3) 07/13/19 06:38 Hct 32.8 % (30.3-42.9) 07/13/19 06:38 MCV 83 fl (79-97) 07/13/19 06:38 MCH 27 pg (28-32) L 07/13/19 06:38 MCHC 32 % (30-34) 07/13/19 06:38 RDW 19.1 % (13.2-15.2) H 07/13/19 06:38 Plt Count 301 K/mm3 (140-440) 07/13/19 06:38 Lymph % (Auto) 7.7 % (13.4-35.0) L 07/09/19 12:28 [place] % (Auto) 5.4 % (0.0-7.3) 07/09/19 12:28 Eos % (Auto) 1.4 % (0.0-4.3) 07/09/19 12:28 Baso % (Auto) 0.2 % (0.0-1.8) 07/09/19 12:28 Lymph # 0.5 K/mm3 (1.2-5.4) L 07/09/19 12:28 [place] # 0.3 K/mm3 (0.0-0.8) 07/09/19 12:28 Eos # 0.1 K/mm3 (0.0-0.4) 07/09/19 12:28 Baso # 0.0 K/mm3 (0.0-0.1) 07/09/19 12:28 Seg Neutrophils % 85.3 % (40.0-70.0) H 07/09/19 12:28 Seg Neutrophils # 5.3 K/mm3 (1.8-7.7) 07/09/19 12:28 Sodium 139 mmol/L (137-145) 07/15/19 06:31 Potassium 4.1 mmol/L (3.6-5.0) 07/15/19 06:31 Chloride 99.9 mmol/L (98-107) 07/15/19 06:31 Carbon Dioxide 23 mmol/L (22-30) 07/15/19 06:31 20 mmol/L 07/15/19 06:31 BUN 63 mg/dL (7-17) H 07/15/19 06:31 4.4 mg/dL (0.7-1.2) H 07/15/19 06:31 Estimated GFR 13 ml/min 07/15/19 06:31 14 % 07/15/19 06:31 Glucose 160 mg/dL (65-100) H 07/15/19 06:31 POC Glucose 197 (70-105) H 07/16/19 07:51 Calcium 9.0 mg/dL (8.4-10.2) 07/15/19 06:31 Active Medications - Current Medications Current Medications: Generic Name Dose Route Start Last Admin Trade Name Freq PRN Reason Stop Dose Admin Acetaminophen 650 mg 07/01/19 20:15 Tylenol PO Q6H PRN Non Cardiac Pain or Temp>100.5 Albuterol 2.5 mg 07/01/19 20:16 Proventil IH Q4HRT PRN Shortness Of Breath Aspirin 325 mg 07/02/19 08:00 07/16/19 09:12 Ecotrin PO 325 mg QDAY CASPER Administration Atorvastatin Calcium 40 mg 07/01/19 21:00 07/15/19 22:05 Lipitor PO 40 mg QHS CASPER Administration Bisacodyl 10 mg 07/01/19 20:[address] QDAY PRN Constipation Bisacodyl 5 mg 07/08/19 12:19 07/08/19 12:38 Dulcolax PO 5 mg BID PRN Administration Constipation Clonidine HCl 0.1 mg 07/14/19 14:00 07/16/19 14:06 Catapres PO 0.1 mg Q8HR CASPER Administration Dextrose 50 ml 07/01/19 20:02 D50w (25gm) Syringe IV PRN PRN Hypoglycemia Ferrous Sulfate 325 mg 07/02/19 08:00 07/16/19 09:12 Feosol PO 325 mg QDAY CASPER Administration Folic Acid 1 mg 07/02/19 08:00 07/16/19 09:14 Folvite PO 1 mg QDAY CASPER Administration Heparin Sodium (Porcine) 5,000 unit 07/01/19 22:00 07/16/19 14:25 Heparin SUB-Q Not Given Q8HR CASPER Hydralazine HCl 100 mg 07/02/19 08:00 07/16/19 14:06 Apresoline PO 100 mg TID CASPER Administration Hydralazine HCl 10 mg 07/01/19 20:16 07/09/19 02:43 Apresoline IV 10 mg Q4H PRN Administration Hypertension Labetalol HCl 300 mg 07/01/19 22:00 07/16/19 09:13 Normodyne PO 300 mg BID CASPER Administration Nifedipine 60 mg 07/07/19 18:00 07/16/19 05:40 Procardia Xl PO 60 mg Q12H CASPER Administration Ondansetron HCl 4 mg 07/01/19 20:16 07/06/19 23:20 Zofran Odt PO 4 mg Q8H PRN Administration Nausea And Vomiting Ondansetron HCl 4 mg 07/09/19 11:00 07/10/19 06:10 Zofran IV 4 mg Q6H PRN Administration Nausea And Vomiting Pantoprazole Sodium 20 mg 07/02/19 08:00 07/16/19 09:13 Protonix PO 20 mg QDAY CASPER Administration Polyethylene Glycol 17 gm 07/01/19 20:32 07/16/19 06:29 Miralax 3350 PO 17 gm QDAY PRN Administration Constipation Nutrition/Malnutrition Assess - Dietary Evaluation Nutrition/Malnutrition Findings: Nutrition Notes Start: 07/13/19 09:26 Freq: Status: Active Protocol: Document 07/13/19 09:26 JAZMYN (Rec: 07/13/19 09:30 JAZMYN [email or web address]) Nutrition Notes Need for Assessment generated from: LOS Initial or Follow up Brief Note Current Diagnosis CKD(stage I-IV),COPD,Diabetes, Hypertension,Heart Failure Other Pertinent Diagnosis Acute CVA, Dysphagia Current Diet Cardiac/Consistent CHO mech soft with ground meats Labs/Tests BUN 64 Cr 4.6 Pertinent Medications Feosol, Folic acid Height 5 ft 4 in Weight 69.2 kg [place] Body Weight (kg) 54.54 BMI 26.2 Weight Status Overweight Subjective/Other Information Pt screened for LOS. She has consumed 59% of meals since admission. Percent of energy/protein needs met: 72% energy 97% pro Burn Absent Trauma Absent Is patient on ventilator? No Is Patient Ambulatory and/or Out of Bed Yes REE-([facility]-ambulatory/OOB) [ 1705.600 [id number]] Calculation Used for Recommendations [facility] Additional Notes Pro needs 0.8-0.9g/k-62g/ day Fluid needs 1ml/kcal Nutrition Intervention Follow-Up By: 07/20/19 Additional Comments F/U: stable intakes, wt
--- NOTE | 2019-07-16 16:30 | Progress Note ---
Assessment and Plan - Patient Problems (1) Chronic kidney disease, stage 4 (severe) Current Visit: Yes Status: Acute Plan to address problem: Kidney function marginally decreased, cont. to hold bumex. avoid nephrotoxins, NSAIDs, IV contrast. Follow-up electrolytes and renal function periodically. no acute indication for renal replacement therapy at present (2) Heart failure with preserved ejection fraction Current Visit: No Status: Acute Plan to address problem: Appears to be euvolemic. Continue medications (3) Hypertensive chronic kidney disease with stage 1 through stage 4 chronic kidney disease, or unspecified chronic kidney disease Current Visit: No Status: Chronic Plan to address problem: BP improved on current meds. holding bumex given marginally declined eGFR. Follow-up blood pressure on the adjusted medications. (4) Type 2 diabetes mellitus with diabetic chronic kidney disease Current Visit: No Status: Chronic Plan to address problem: Blood sugar management by primary attending (5) Cerebrovascular accident (CVA) Current Visit: Yes Status: Acute Plan to address problem: Continue OT/PT Subjective Date of service: 07/16/19 Principal diagnosis: CVA Interval history: pt awake, alert, in no acute distress Objective - Vital Signs Vital signs: Vital Signs - 12hr 07/16/19 07/16/19 07/16/19 04:59 05:31 05:44 Temperature 98.0 F 98.2 F Pulse Rate 80 80 80 Respiratory 18 20 Rate Blood Pressure 140/70 144/69 144/69 Blood Pressure [Right] O2 Sat by Pulse 97 98 Oximetry 07/16/19 07/16/19 07/16/19 08:48 12:17 13:54 Temperature 97.7 F 97.7 F Pulse Rate 71 68 74 Respiratory 18 18 Rate Blood Pressure Blood Pressure 122/63 110/58 123/63 [Right] O2 Sat by Pulse 100 99 Oximetry 07/16/19 14:06 Temperature Pulse Rate 74 Respiratory Rate Blood Pressure 123/63 Blood Pressure [Right] O2 Sat by Pulse Oximetry - General Appearance General appearance: well-developed, well-nourished, appears stated age EENT: ATNC, PERRL, mucous membranes moist Neck: no JVD Respiratory: Present: Clear to Ascultation Cardiology: regular, S1S2 Gastrointestinal: normoactive bowel sounds Integumentary: no rash, other (no edema ) Neurologic: no focal deficit, alert and oriented x3, strength 5/5, CN 3-12 intact Psychiatric: mood/affect appropriate, cooperative - Lab 07/13/19 06:38 07/15/19 06:31 Most recent lab results Calcium 9.0 mg/dL (8.4-10.2) 07/15/19 06:31 Medications & Allergies - Medications Allergies/Adverse Reactions: Allergies amlodipine besylate [From Norvasc] Allergy (Verified 01/21/14 20:31) Vomiting hydromorphone HCl [From Dilaudid] Allergy (Verified 01/21/14 20:31) Vomiting lisinopril Allergy (Verified 01/21/14 20:31) Unknown Home Medications: Home Medications Medication Instructions Recorded Confirmed Last Taken Type Acetaminophen [Acetaminophen TAB] 650 mg PO Q4H PRN 30 Days tablet 06/21/19 07/02/19 07/01/19 Rx Aspirin EC 325 mg PO QDAY 30 Days tablet 06/21/19 07/02/19 07/01/19 Rx 325 AtorvaSTATin [Lipitor] 40 mg PO QHS 30 Days tablet 06/21/19 07/02/19 07/01/19 Rx 40 Ferrous Sulfate [Feosol 325 MG tab] 325 mg PO QDAY tablet 06/21/19 07/02/19 07/01/19 Rx 325 Folic Acid [Folvite] 1 mg PO QDAY tablet 06/21/19 07/02/19 07/01/19 Rx 1 Ondansetron [Zofran ODT TAB] 4 mg PO Q6H PRN 30 Days tab.rapdis 06/21/19 07/02/19 07/01/19 Rx 4 Clonidine HCl [Catapres] 0.3 mg PO BID 06/27/19 07/02/19 07/01/19 History 0.3 Insulin Glargine [Lantus] 5 units SQ QHS 06/27/19 07/02/19 07/01/19 History 2 Labetalol HCl [Labetalol 300mg TAB] 300 mg PO BID 06/27/19 07/02/19 07/01/19 History 300 hydrALAZINE [Apresoline TAB] 100 mg PO TID 06/27/19 07/02/19 07/01/19 History 325 Lansoprazole Solutab [Prevacid 30 mg FEEDTUBE QDAY tab.rapdis 08/07/02/19 07/01/19 Rx Solutab] Lipase/Protease/Amylase [Pancreaze 1 each FEEDTUBE PRN PRN capsule 07/01/19 07/02/19 07/01/19 Rx 10,500 Unit] 1 Sennosides Tab [Senokot] 8.6 mg PO Q12H PRN tablet 07/01/19 07/02/19 07/01/19 Rx 8.6 Active Medications: Generic Name Dose Route Start Last Admin Trade Name Freq PRN Reason Stop Dose Admin Acetaminophen 650 mg 07/01/19 20:15 Tylenol PO Q6H PRN Non Cardiac Pain or Temp>100.5 Albuterol 2.5 mg 07/01/19 20:16 Proventil IH Q4HRT PRN Shortness Of Breath Aspirin 325 mg 07/02/19 08:00 07/16/19 09:12 Ecotrin PO 325 mg QDAY CASPER Administration Atorvastatin Calcium 40 mg 07/01/19 21:00 07/15/19 22:05 Lipitor PO 40 mg QHS CASPER Administration Bisacodyl 10 mg 07/01/19 20:16 Dulcolax MD QDAY PRN Constipation Bisacodyl 5 mg 07/08/19 12:19 07/08/19 12:38 Dulcolax PO 5 mg BID PRN Administration Constipation Clonidine HCl 0.1 mg 07/14/19 14:00 07/16/19 14:06 Catapres PO 0.1 mg Q8HR CASPER Administration Dextrose 50 ml 07/01/19 20:02 D50w (25gm) Syringe IV PRN PRN Hypoglycemia Ferrous Sulfate 325 mg 07/02/19 08:00 07/16/19 09:12 Feosol PO 325 mg QDAY CASPER Administration Folic Acid 1 mg 07/02/19 08:00 07/16/19 09:14 Folvite PO 1 mg QDAY CASPER Administration Heparin Sodium (Porcine) 5,000 unit 07/01/19 22:00 07/16/19 14:25 Heparin SUB-Q Not Given Q8HR CASPER Hydralazine HCl 100 mg 07/02/19 08:00 07/16/19 14:06 Apresoline PO 100 mg TID CASPER Administration Hydralazine HCl 10 mg 07/01/19 20:16 07/09/19 02:43 Apresoline IV 10 mg Q4H PRN Administration Hypertension Labetalol HCl 300 mg 07/01/19 22:00 07/16/19 09:13 Normodyne PO 300 mg BID CASPER Administration Nifedipine 60 mg 07/07/19 18:00 07/16/19 05:40 Procardia Xl PO 60 mg Q12H CASPER Administration Ondansetron HCl 4 mg 07/01/19 20:16 07/06/19 23:20 Zofran Odt PO 4 mg Q8H PRN Administration Nausea And Vomiting Ondansetron HCl 4 mg 07/09/19 11:00 07/10/19 06:10 Zofran IV 4 mg Q6H PRN Administration Nausea And Vomiting Pantoprazole Sodium 20 mg 07/02/19 08:00 07/16/19 09:13 Protonix PO 20 mg QDAY CASPER Administration Polyethylene Glycol 17 gm 07/01/19 20:32 07/16/19 06:29 Miralax 3350 PO 17 gm QDAY PRN Administration Constipation
[2019-07-17] MEDS: CATAPRES PO SCH ×3 (06:22→23:06)
[2019-07-17] MEDS: PROCARDIA XL PO SCH ×2 (06:23→18:35)
[2019-07-17] MEDS: HEPARIN SUB-Q SCH ×3 (07:00→23:08)
[2019-07-17 07:39] LABS: Calcium 9.5 mg/dL (8.4-10.2)
--- NOTE | 2019-07-17 08:11 | Progress Note ---
Subjective Date of service: 07/17/19 Principal diagnosis: CVA Interval history: 49-year-old female admitted to outside hospital with shortness of breath and dyspnea on exertion. She is found to have a CHF exacerbation and hypertensive urgency with blood pressure 211/104. Cardiology and nephrology consults were placed. Lasix was discontinued due to elevated creatinine and should be restarted once creatinine is less than 3. Patient's baseline creatinine is 2.1- 2.2. Fluid restriction was started at 15 mL per day. Clonidine and hydralazine were both discontinued patient was continued on labetalol and verapamil. She had to iron infusions. Uncertain why patient was taken off of statin but per patient and her PCP advised not to take it. She does have a history of CVA but was only on aspirin. States statin was stopped by [employer] due to pain in left shoulder which was more likely due to tone. Statin was restarted at outside Hospital. We'll discuss secondary stroke prevention with patient made sure that she and family understand her need to continue with the statin. Patient also bernardo s a history of relapsing remitting multiple sclerosis but has not had a flair in 3 years. States she has falls about once a week. Patient is known to the service and was recently discharged to the acute care side of the hospital due to altered mental status, hypertensive emergency and ultimately CVA. Patient is participating in therapy and making reasonable progress. Taking rest breaks as needed. -BM reminded her about suppository. Monitor. Denies pain, palpitations, dyspnea, cough or joint pain. Overall patient states that she is feeling better, not having any issues with dizziness. Creatinine is improving, will continue to check every couple of days for trend. BP is finally stable in an acceptable range. No meds held since yesterday and no episodes of hypotension. Feels better on just 0.1mg Clonidine. LUE tone a little worse this AM. Walking improved - QC now. Attempting to return to Kevin level if possible to be able to return home safely alone. Patient refuses to discharge to a personal fci or SNF environment. We will work to ensure that she is safe in order to go home with intermittent supervision. Due to all of her issues combined this is not our preference however with her refusal would have little other options. She very well may be okay at home alone however she does have a high risk for a harmful event with no one there to assist her. To this end we will over the next several days push her to be extremely independent and put her through all of the same task she will have to perform at home alone to either proved to herself and eyes that she can handle these issues or to show her that she can't. We will still push for the most appropriate and safe discharge while still allowing the patient make her own decision. All records, vitals, labs and medications were reviewed. No other issues per patient, nursing or therapy. Objective - Exam Narrative Exam: MUSCULOSKELETAL SPECIALTY EXAM CONSTITUTIONAL: Well developed, well nourished, appropriately groomed. RIGHT hand dominant. More interactive today RESPIRATORY: Clear to auscultation bilaterally, no increased work of breathing CARDIOVASCULAR: Regular Rate/ Rhythm, no swelling, edema or tenderness in BUE or BLE. All extremities warm. GI: + bowel sounds, soft, NTTP, nondistended. INTEGUMENTARY: Normal, no lesion, rash, masses or bruising noted in extremities. MUSCULOSKELETAL: BUE and BLE normal without defect, crepitus, subluxation, effusion, arthritic changes or TTP. SA EF WE EE FF FA HF KE ADF EHL APF R 5/5 overall L 4-/5 4-/5 4-/5 4-/5 4-/5 4-/5 4/5 4/5 4/5 4/5 4/5 ROM decreased on left upper extremity Tone increased on left upper extremity NEURO: Left facial droop including eye Sensation intact in all extremities without extinction. No tremor noted in 4 extremities. Follows 2 step commands. Aphasia not appreciated Dysarthria not appreciated, slowed maris with speech with slight slurring occasionally , improved Dysphagia not appreciated Neglect not appreciated POSTURE and GAIT: Sitting posture good. Balance appears reasonable seated. Patient was able to perform a stand pivot transfer with min to mod assist. Gait reasonable with slowed short steps.. PSYCH: Alert, oriented x3, affect appears flattened. Insight appears intact. - Constitutional Vitals: Vital Signs - 12hr 07/16/19 07/16/19 07/16/19 22:00 22:50 22:51 Temperature Pulse Rate 78 78 Respiratory Rate Respiratory 17 Rate [Neck] Blood Pressure 135/65 135/65 Blood Pressure [Left] Blood Pressure [Right] O2 Sat by Pulse Oximetry 07/16/19 07/17/19 07/17/19 23:00 00:19 06:13 Temperature 36.6 C 36.9 C Pulse Rate 90 98 H Respiratory 17 16 16 Rate Respiratory Rate [Neck] Blood Pressure Blood Pressure 115/64 [Left] Blood Pressure 123/68 107/62 [Right] O2 Sat by Pulse 97 99 Oximetry 07/17/19 06:22 Temperature Pulse Rate 74 Respiratory Rate Respiratory Rate [Neck] Blood Pressure 115/64 Blood Pressure [Left] Blood Pressure [Right] O2 Sat by Pulse Oximetry - Allied health notes Allied health notes reviewed: nursing, PT, OT FIMS assessment as documented by PT/OT/ST: Grooming Patient cleans teeth/dentures: Yes Patient young/brushes hair: Yes Patient washes, rinses and Yes dries face: Patient washes, rinses and Yes dries hands: Patient applies make-up: No Patient performs (no make-up/ / (100%) shaving): Grooming FIM Score 5. Supervision ([place] applies toothpaste or opens containers.) Toileting Toileting Device Commode over Toilet Patient able to: Adjust clothes before,Clean self,Adjust clothes after Patient able to perform: 3/3 (100%) Toileting FIM Score 4. Minimal Assistance (Patient = 75% or more. Needs touching.) Social interaction/Memory/Problem solving Social Interaction FIM Score 7. Complete [place] (Interacts appropriately. Controls temper.) Memory FIM Score 7. Complete [place] (Remembers people and routines.) Problem Solving FIM Score 6. Mod. [place] (Mild difficulty or needs more time w/ complex.) Transfers Mode of Locomotion: Wheelchair Bed/Chair/Wheelchair Transfers 4. Minimal Assistance (Patient = 75% or more. FIM Score Needs touching.) Toilet Transfers FIM Score 4. Minimal Assistance (Patient = 75% or more. Needs touching.) Patient transferred to: Shower Shower Transfers FIM Score 4. Minimal Assistance (Patient = 75% or more. Needs touching.) Locomotion- Stairs Device used on Stairs Handrail/s Number of Stairs Ascended/ 12 Descended Patient used handrail/support: Yes Stairs FIM Score 4. Minimal Assistance (Patient = 75% or more, touching. 12-14 stairs.) Locomotion- walk/wheelchair Most Frequent Mode of Wheelchair Locomotion: Ambulation Distance 135 Walking FIM Score 2. Maximal Assistance (Patient = 25% or more. Minimum of 50 ft.) Wheelchair Propulsion Distance 125 Wheelchair FIM Score 2. Maximal Assistance (Patient = 25% or more. Minimum of 50 ft.) Eating Eating FIM Score 5. Supervision/Set-Up (Needs help w/ containers, cutting meat, etc.) Dressing-Upper body Patient retrieves clothing No items: Patient applies/removes UE No prosthesis or orthosis: Upper Body Dressing FIM Score 3. Moderate Assistance (Patient = 50% or more) Dressing-lower body Patient retrieves clothing No items: Patient applies/removes LE No prosthesis or orthosis: Lower Body Dressing FIM Score 4. Minimal Assistance (Patient = 75% or more. Needs touching.) - Labs CBC & Chem 7: 07/13/19 06:38 07/17/19 06:22 Labs: Laboratory Results - last 72 hr 07/14/19 07/14/19 07/14/19 12:00 16:29 21:05 Sodium Potassium Chloride Carbon Dioxide Anion Gap BUN Creatinine Estimated GFR BUN/Creatinine Ratio Glucose POC Glucose 187 H 222 H 264 H Calcium 07/15/19 07/15/19 07/15/19 06:31 07:45 11:50 Sodium 139 Potassium 4.1 Chloride 99.9 Carbon Dioxide 23 Anion Gap 20 BUN 63 H Creatinine 4.4 H Estimated GFR 13 BUN/Creatinine Ratio 14 Glucose 160 H POC Glucose 215 H 114 H Calcium 9.0 07/15/19 07/16/19 07/17/19 20:48 07:51 06:22 Sodium 141 Potassium 3.7 Chloride 101.7 Carbon Dioxide 22 Anion Gap 21 BUN 54 H Creatinine 4.1 H Estimated GFR 14 BUN/Creatinine Ratio 13 Glucose 146 H POC Glucose 231 H 197 H Calcium 9.5 07/17/19 07:42 Sodium Potassium Chloride Carbon Dioxide Anion Gap BUN Creatinine Estimated GFR BUN/Creatinine Ratio Glucose POC Glucose 191 H Calcium Assessment and Plan CVA with Left nondominant hemiplegia: discussed secondary stroke prevention and prognosis. continue medications and monitor for worsening neurologic condition. LUE spasticity: Stretching with OT, continue splinting. CKD with acute exacerbation: avoid nephrotoxic medications, monitor renal function, nephrology consult. CREA improving, monitor HTN: continue medications, adjust for normotension, nephrology consulted due to renal component. Q4h vitals. PRN coverage available. Better control now DM 2: stop SSI, and monitor GLU. A1c was normal. N/V: Zofran available, monitor. Resolved Z73.6 ADL dysfunction: OT will work on improving ability to perform ADLs (including assistive devices) to increase independence and decrease caregiver burden and improve functional transfers and mobility training. R26.2 Difficulty walking: PT will work on gait training and proper use of assistive devices and advance as appropriate to use of stairs and outside ambulation on uneven surfaces. R26.81 Unsteadiness on feet: PT will work on improving static and dynamic sitting and standing balance as well as proper use of assistive devices to decrease risk of falls. R26.89 Abnormality of gait: PT will work to improve safety and efficiency of gait through neuromotor training and gait training along with instruction on proper use of assistive devices. M62.81 Muscle weakness: PT & OT will work on strengthening exercises to improve functional strength including mixture of closed and open kinetic chain exercises. R53.81 Debility: PT & OT will work on improving overall functional status to improve participation with ADLs, mobility and social involvement. R53.83 Fatigue: PT & OT will work on improving endurance through aerobic exercises and therapeutic activity while monitoring patients tolerance for activity and vital signs as needed. MS: monitor for any worsening symptoms DVT ppx: heparin - refusing, have discussed that she needs to take it Pain: Continue physical modalities in therapy and pain medications as needed to achieve functional pain control. Sleep: Monitor and address as needed. Bowel: Monitor and address as needed. PRN meds available Appetite: Monitor and address as needed. Discharge planning: Pending therapy progress and care plan meeting. Will continue discussion with therapy team, SW, patient and family. Look to discharge early next week Restrictions/ Precautions: Falls WB status: FWB Functional Hx: ADLs: Independent Cognition: Independent Mobility: RW Barriers to Discharge: Decreased mobility and ability to perform self care, balance deficits, weakness, spasticity Estimated Length of Stay: 10-14 days Discharge Destination: Home with family, will need some assistance at home, will continue to work towards highest level of independence.
[2019-07-17] MEDS: APRESOLINE PO SCH ×3 (08:45→23:09)
--- NOTE | 2019-07-17 08:52 | Progress Note ---
Assessment and Plan Assessment and plan: --Acute ischemic stroke; left-sided weakness Continue therapy as prescribed. Continue ASA and statin, PT and OT rehabilitation MRI brain revealed small areas of subacute ischemia are identified in the head of the right caudate nucleus, left parietal white matter and left splenium of the corpus callosum as described. Volume loss. Advanced chronic white matter changes. Chronic focal infarcts in the right zavala radiata and inferior left cerebellum. --Malignant hypertension;Well controlled, On multiple high-dose antihypertensives and when necessary medications, Closely monitor blood pressures and, adjust doses as needed --Acute metabolic Hypertensive encephalopathy: Improving as blood pressure comes down --[place] stool 07/10 resolved, stool for occult blood was negative Patient refused blood tests for H&H --Nausea/vomiting/Acute gastritis: antiemetics,protonix and supportive care improved --CKD stage 4, unchanged, avoid nephrotoxins, nephrology following --DM Type 2 as patient a1c is 4.9 last month, she has had normal a1c of < 6 since 2017, no need for insulins at this time --Anemia: Continue supportive care --Moderate protein malnutrition, Dietitian consult --Diastolic CHF by history; chronic with no acute excarbation --Dypshagia, continue current diet. No new complaints --Depression, stable and improved -- DVT prophylaxis:Heparin History Interval history: Patient is 49-year-old woman with a history of anemia, diabetes, heart failure, stroke, hypertension, COPD, CVA with left side deficit for which she was in [facility] rehabilitation unit from [facility], who was about to be discharge from discharge to the acute Inpatient unit for confusion and elevated blood pressure with systolic BP over 200, inability to talk which began on the weekend per Dr. Singh patient was admitted to the hospital and imaging study showed, Small areas of subacute ischemia are identified in the head of the right caudate nucleus, left parietal white matter and left splenium of the corpus callosum. Patients meds were adjusted and then discharge back to Rehab. Hospitalist Physical - Constitutional Vitals: Temp Pulse Resp BP Pulse Ox 98.3 F 78 18 117/74 98 07/17/19 07:35 07/17/19 07:35 07/17/19 07:35 07/17/19 07:35 07/17/19 07:35 General appearance: Present: no acute distress - EENT Eyes: Present: PERRL, EOM intact ENT: hearing intact, clear oral mucosa, dentition normal - Neck Neck: Present: supple, normal ROM - Respiratory Respiratory effort: normal Respiratory: bilateral: CTA - Cardiovascular Rhythm: regular Heart Sounds: Present: S1 & S2. Absent: gallop, rub - Extremities Extremities: no ischemia, No edema, Full ROM - Abdominal General gastrointestinal: soft, non-tender, non-distended, normal bowel sounds - Integumentary Integumentary: Present: clear, warm, dry - Neurologic Neurologic: CNII-XII intact, moves all extremities Results - Labs CBC & Chem 7: 07/13/19 06:38 07/17/19 06:22 Labs: Laboratory Last Values WBC 7.4 K/mm3 (4.5-11.0) 07/13/19 06:38 RBC 3.96 M/mm3 (3.65-5.03) 07/13/19 06:38 Hgb 10.6 gm/dl (10.1-14.3) 07/13/19 06:38 Hct 32.8 % (30.3-42.9) 07/13/19 06:38 MCV 83 fl (79-97) 07/13/19 06:38 MCH 27 pg (28-32) L 07/13/19 06:38 MCHC 32 % (30-34) 07/13/19 06:38 RDW 19.1 % (13.2-15.2) H 07/13/19 06:38 Plt Count 301 K/mm3 (140-440) 07/13/19 06:38 Lymph % (Auto) 7.7 % (13.4-35.0) L 07/09/19 12:28 [place] % (Auto) 5.4 % (0.0-7.3) 07/09/19 12:28 Eos % (Auto) 1.4 % (0.0-4.3) 07/09/19 12:28 Baso % (Auto) 0.2 % (0.0-1.8) 07/09/19 12:28 Lymph # 0.5 K/mm3 (1.2-5.4) L 07/09/19 12:28 [place] # 0.3 K/mm3 (0.0-0.8) 07/09/19 12:28 Eos # 0.1 K/mm3 (0.0-0.4) 07/09/19 12:28 Baso # 0.0 K/mm3 (0.0-0.1) 07/09/19 12:28 Seg Neutrophils % 85.3 % (40.0-70.0) H 07/09/19 12:28 Seg Neutrophils # 5.3 K/mm3 (1.8-7.7) 07/09/19 12:28 Sodium 141 mmol/L (137-145) 07/17/19 06:22 Potassium 3.7 mmol/L (3.6-5.0) 07/17/19 06:22 Chloride 101.7 mmol/L (98-107) 07/17/19 06:22 Carbon Dioxide 22 mmol/L (22-30) 07/17/19 06:22 21 mmol/L 07/17/19 06:22 BUN 54 mg/dL (7-17) H 07/17/19 06:22 4.1 mg/dL (0.7-1.2) H 07/17/19 06:22 Estimated GFR 14 ml/min 07/17/19 06:22 13 % 07/17/19 06:22 Glucose 146 mg/dL (65-100) H 07/17/19 06:22 POC Glucose 191 (70-105) H 07/17/19 07:42 Calcium 9.5 mg/dL (8.4-10.2) 07/17/19 06:22 Active Medications - Current Medications Current Medications: Generic Name Dose Route Start Last Admin Trade Name Freq PRN Reason Stop Dose Admin Acetaminophen 650 mg 07/01/19 20:15 Tylenol PO Q6H PRN Non Cardiac Pain or Temp>100.5 Albuterol 2.5 mg 07/01/19 20:16 Proventil IH Q4HRT PRN Shortness Of Breath Aspirin 325 mg 07/02/19 08:00 07/16/19 09:12 Ecotrin PO 325 mg QDAY CASPER Administration Atorvastatin Calcium 40 mg 07/01/19 21:00 07/16/19 22:50 Lipitor PO 40 mg QHS CASPER Administration Bisacodyl 10 mg 07/01/19 20:16 Dulcolax ND QDAY PRN Constipation Bisacodyl 5 mg 07/08/19 12:19 07/08/19 12:38 Dulcolax PO 5 mg BID PRN Administration Constipation Clonidine HCl 0.1 mg 07/14/19 14:00 07/17/19 06:22 Catapres PO 0.1 mg Q8HR CASPER Administration Dextrose 50 ml 07/01/19 20:02 D50w (25gm) Syringe IV PRN PRN Hypoglycemia Ferrous Sulfate 325 mg 07/02/19 08:00 07/16/19 09:12 Feosol PO 325 mg QDAY CASPER Administration Folic Acid 1 mg 07/02/19 08:00 07/16/19 09:14 Folvite PO 1 mg QDAY CASPER Administration Heparin Sodium (Porcine) 5,000 unit 07/01/19 22:00 07/16/19 23:00 Heparin SUB-Q Not Given Q8HR CASPER Hydralazine HCl 100 mg 07/02/19 08:00 07/16/19 23:02 Apresoline PO 100 mg TID CASPER Administration Hydralazine HCl 10 mg 07/01/19 20:16 07/09/19 02:43 Apresoline IV 10 mg Q4H PRN Administration Hypertension Labetalol HCl 300 mg 07/01/19 22:00 07/16/19 22:51 Normodyne PO 300 mg BID CASPER Administration Nifedipine 60 mg 07/07/19 18:00 07/17/19 06:23 Procardia Xl PO 60 mg Q12H CASPER Administration Ondansetron HCl 4 mg 07/01/19 20:16 07/06/19 23:20 Zofran Odt PO 4 mg Q8H PRN Administration Nausea And Vomiting Ondansetron HCl 4 mg 07/09/19 11:00 07/10/19 06:10 Zofran IV 4 mg Q6H PRN Administration Nausea And Vomiting Pantoprazole Sodium 20 mg 07/02/19 08:00 07/16/19 09:13 Protonix PO 20 mg QDAY CASPER Administration Polyethylene Glycol 17 gm 07/01/19 20:32 07/16/19 06:29 Miralax 3350 PO 17 gm QDAY PRN Administration Constipation Nutrition/Malnutrition Assess - Dietary Evaluation Nutrition/Malnutrition Findings: Nutrition Notes Start: 07/13/19 09:26 Freq: Status: Active Protocol: Document 07/13/19 09:26 JAZMYN (Rec: 07/13/19 09:30 [email or web address] [id number] [email or web address]) Nutrition Notes Need for Assessment generated from: LOS Initial or Follow up Brief Note Current Diagnosis CKD(stage I-IV),COPD,Diabetes, Hypertension,Heart Failure Other Pertinent Diagnosis Acute CVA, Dysphagia Current Diet Cardiac/Consistent CHO mech soft with ground meats Labs/Tests BUN 64 Cr 4.6 Pertinent Medications Feosol, Folic acid Height 5 ft 4 in Weight 69.2 kg [place] Body Weight (kg) 54.54 BMI 26.2 Weight Status Overweight Subjective/Other Information Pt screened for LOS. She has consumed 59% of meals since admission. Percent of energy/protein needs met: 72% energy 97% pro Burn Absent Trauma Absent Is patient on ventilator? No Is Patient Ambulatory and/or Out of Bed Yes REE-([facility]-ambulatory/OOB) [ 1705.600 [id number]] Calculation Used for Recommendations [facility] Additional Notes Pro needs 0.8-0.9g/k-62g/ day Fluid needs 1ml/kcal Nutrition Intervention Follow-Up By: 07/20/19 Additional Comments F/U: stable intakes, wt
[2019-07-17] MEDS: ECOTRIN PO SCH (11:43)
[2019-07-17] MEDS: FEOSOL PO SCH (11:43)
[2019-07-17] MEDS: PROTONIX PO SCH (11:43)
[2019-07-17] MEDS: NORMODYNE PO SCH ×2 (11:44→23:07)
[2019-07-17] MEDS: FOLVITE PO SCH (11:45)
--- NOTE | 2019-07-17 15:12 | Progress Note ---
Assessment and Plan - Patient Problems (1) Chronic kidney disease, stage 4 (severe) Current Visit: Yes Status: Acute Plan to address problem: Kidney function improving gradually after holding bumex. avoid nephrotoxins, NSAIDs, IV contrast. Follow-up electrolytes and renal function periodically. no acute indication for renal replacement therapy at present (2) Heart failure with preserved ejection fraction Current Visit: No Status: Acute Plan to address problem: Appears to be euvolemic. Continue medications (3) Hypertensive chronic kidney disease with stage 1 through stage 4 chronic kidney disease, or unspecified chronic kidney disease Current Visit: No Status: Chronic Plan to address problem: BP improved on current meds. holding bumex given marginally declined eGFR. Follow-up blood pressure on the adjusted medications. (4) Type 2 diabetes mellitus with diabetic chronic kidney disease Current Visit: No Status: Chronic Plan to address problem: Blood sugar management by primary attending (5) Cerebrovascular accident (CVA) Current Visit: Yes Status: Acute Plan to address problem: Continue OT/PT Subjective Date of service: 07/17/19 Principal diagnosis: CVA Interval history: pt awake, alert, in no acute distress Objective - Vital Signs Vital signs: Vital Signs - 12hr 07/17/19 07/17/19 07/17/19 06:13 06:22 07:35 Temperature 98.4 F 98.3 F Pulse Rate 98 H 74 78 Respiratory 16 18 Rate Blood Pressure 115/64 117/74 Blood Pressure 115/64 [Left] Blood Pressure 107/62 [Right] O2 Sat by Pulse 99 98 Oximetry 07/17/19 07/17/19 12:29 12:30 Temperature 98.9 F Pulse Rate 76 Respiratory 18 Rate Blood Pressure 134/61 Blood Pressure [Left] Blood Pressure [Right] O2 Sat by Pulse 99 Oximetry - General Appearance General appearance: well-developed, well-nourished, appears stated age EENT: ATNC, PERRL, mucous membranes moist, other (L facial droop ) Neck: no JVD Respiratory: Present: Clear to Ascultation Cardiology: regular, S1S2 Gastrointestinal: normoactive bowel sounds Integumentary: no rash, other (no edema ) Neurologic: alert and oriented x3, strength 5/5, facial droop Psychiatric: mood/affect appropriate, cooperative - Lab 07/13/19 06:38 07/17/19 06:22 Most recent lab results Calcium 9.5 mg/dL (8.4-10.2) 07/17/19 06:22 Medications & Allergies - Medications Allergies/Adverse Reactions: Allergies amlodipine besylate [From Norvasc] Allergy (Verified 01/21/14 20:31) Vomiting hydromorphone HCl [From Dilaudid] Allergy (Verified 01/21/14 20:31) Vomiting lisinopril Allergy (Verified 01/21/14 20:31) Unknown Home Medications: Home Medications Medication Instructions Recorded Confirmed Last Taken Type Acetaminophen [Acetaminophen TAB] 650 mg PO Q4H PRN 30 Days tablet 06/21/19 07/02/19 07/01/19 Rx Aspirin EC 325 mg PO QDAY 30 Days tablet 06/21/19 07/02/19 07/01/19 Rx 325 AtorvaSTATin [Lipitor] 40 mg PO QHS 30 Days tablet 06/21/19 07/02/19 07/01/19 Rx 40 Ferrous Sulfate [Feosol 325 MG tab] 325 mg PO QDAY tablet 06/21/19 07/02/19 07/01/19 Rx 325 Folic Acid [Folvite] 1 mg PO QDAY tablet 06/21/19 07/02/19 07/01/19 Rx 1 Ondansetron [Zofran ODT TAB] 4 mg PO Q6H PRN 30 Days tab.rapdis 06/21/19 07/02/19 07/01/19 Rx 4 Clonidine HCl [Catapres] 0.3 mg PO BID 06/27/19 07/02/19 07/01/19 History 0.3 Insulin Glargine [Lantus] 5 units SQ QHS 06/27/19 07/02/19 07/01/19 History 2 Labetalol HCl [Labetalol 300mg TAB] 300 mg PO BID 06/27/19 07/02/19 07/01/19 History 300 hydrALAZINE [Apresoline TAB] 100 mg PO TID 06/27/19 07/02/19 07/01/19 History 325 Lansoprazole Solutab [Prevacid 30 mg FEEDTUBE QDAY tab.rapdis 07/01/19 07/02/19 07/01/19 Rx Solutab] Lipase/Protease/Amylase [Pancreaze 1 each FEEDTUBE PRN PRN capsule 08/07/02/19 07/01/19 Rx 10,500 Unit] 1 Sennosides Tab [Senokot] 8.6 mg PO Q12H PRN tablet 07/01/19 07/02/19 07/01/19 Rx 8.6 Active Medications: Generic Name Dose Route Start Last Admin Trade Name Freq PRN Reason Stop Dose Admin Acetaminophen 650 mg 07/01/19 20:15 Tylenol PO Q6H PRN Non Cardiac Pain or Temp>100.5 Albuterol 2.5 mg 07/01/19 20:16 Proventil IH Q4HRT PRN Shortness Of Breath Aspirin 325 mg 07/02/19 08:00 07/17/19 11:43 Ecotrin PO 325 mg QDAY CASPER Administration Atorvastatin Calcium 40 mg 07/01/19 21:00 07/16/19 22:50 Lipitor PO 40 mg QHS CASPER Administration Bisacodyl 10 mg 07/01/19 20:16 Dulcolax [place] QDAY PRN Constipation Bisacodyl 5 mg 07/08/19 12:19 07/08/19 12:38 Dulcolax PO 5 mg BID PRN Administration Constipation Clonidine HCl 0.1 mg 07/14/19 14:00 07/17/19 06:22 Catapres PO 0.1 mg Q8HR CASPER Administration Dextrose 50 ml 07/01/19 20:02 D50w (25gm) Syringe IV PRN PRN Hypoglycemia Ferrous Sulfate 325 mg 07/02/19 08:00 07/17/19 11:43 Feosol PO 325 mg QDAY CASPER Administration Folic Acid 1 mg 07/02/19 08:00 07/17/19 11:45 Folvite PO 1 mg QDAY CASPER Administration Heparin Sodium (Porcine) 5,000 unit 07/01/19 22:00 07/17/19 14:53 Heparin SUB-Q Not Given Q8HR CASPER Hydralazine HCl 100 mg 07/02/19 08:00 07/17/19 14:45 Apresoline PO 100 mg TID CASPER Administration Hydralazine HCl 10 mg 07/01/19 20:16 07/09/19 02:43 Apresoline IV 10 mg Q4H PRN Administration Hypertension Labetalol HCl 300 mg 07/01/19 22:00 07/17/19 11:44 Normodyne PO 300 mg BID CASPER Administration Nifedipine 60 mg 07/07/19 18:00 07/17/19 06:23 Procardia Xl PO 60 mg Q12H CASPER Administration Ondansetron HCl 4 mg 07/01/19 20:16 07/06/19 23:20 Zofran Odt PO 4 mg Q8H PRN Administration Nausea And Vomiting Ondansetron HCl 4 mg 07/09/19 11:00 07/10/19 06:10 Zofran IV 4 mg Q6H PRN Administration Nausea And Vomiting Pantoprazole Sodium 20 mg 07/02/19 08:00 07/17/19 11:43 Protonix PO 20 mg QDAY CASPER Administration Polyethylene Glycol 17 gm 07/01/19 20:32 07/16/19 06:29 Miralax 3350 PO 17 gm QDAY PRN Administration Constipation
[2019-07-18] MEDS: PROCARDIA XL PO SCH ×2 (05:24→19:49)
[2019-07-18] MEDS: CATAPRES PO SCH ×3 (05:24→22:24)
[2019-07-18] MEDS: HEPARIN SUB-Q SCH ×3 (05:25→22:20)
[2019-07-18] MEDS: APRESOLINE PO SCH ×3 (08:33→20:00)
[2019-07-18] MEDS: FEOSOL PO SCH (12:33)
[2019-07-18] MEDS: ECOTRIN PO SCH (12:33)
[2019-07-18] MEDS: FOLVITE PO SCH (12:34)
[2019-07-18] MEDS: NORMODYNE PO SCH ×2 (12:34→22:19)
[2019-07-18] MEDS: PROTONIX PO SCH (12:34)
--- NOTE | 2019-07-18 14:18 | Progress Note ---
Assessment and Plan - Patient Problems (1) Chronic kidney disease, stage 4 (severe) Current Visit: Yes Status: Acute Plan to address problem: Kidney function about baseline. Follow-up electrolytes and renal function periodically (2) Heart failure with preserved ejection fraction Current Visit: No Status: Acute Plan to address problem: Continue medications (3) Hypertensive chronic kidney disease with stage 1 through stage 4 chronic kidney disease, or unspecified chronic kidney disease Current Visit: No Status: Acute Plan to address problem: Blood pressure is now controlled. Follow blood pressure on current medications (4) Type 2 diabetes mellitus with diabetic chronic kidney disease Current Visit: No Status: Chronic Plan to address problem: Blood sugar management by primary attending (5) Cerebrovascular accident (CVA) Current Visit: Yes Status: Acute Plan to address problem: Continue physical therapy Subjective Date of service: 07/18/19 Principal diagnosis: CVA Interval history: Patient seen lying in bed. She has no complaints. She is feeling better Objective - Exam Narrative Exam: Middle-age of tremor: Female lying in bed in no acute distress HEENT: NCAT, pink oral mucous membrane Neck: Supple, no venous distention CVS: S1S2 RRR with no murmur, rub or gallop Chest: Clear to auscultation Abdomen: Protuberant, soft, nontender, no organomegaly, bowel sounds are present Extremities: No edema Neuro: Awake, alert left hemiparesis - Vital Signs Vital signs: Vital Signs - 12hr 07/18/19 07/18/19 07/18/19 05:21 05:24 07:24 Temperature 98.3 F 98.1 F Pulse Rate 76 76 77 Respiratory 19 18 Rate Blood Pressure 152/76 152/76 165/83 Blood Pressure [Right] O2 Sat by Pulse 100 95 Oximetry 07/18/19 07/18/19 11:28 12:00 Temperature 97.0 F L 97.5 F L Pulse Rate 73 72 Respiratory 20 18 Rate Blood Pressure 126/67 Blood Pressure 126/67 [Right] O2 Sat by Pulse 100 100 Oximetry - Lab 07/13/19 06:38 07/17/19 06:22 Most recent lab results Calcium 9.5 mg/dL (8.4-10.2) 07/17/19 06:22 Medications & Allergies - Medications Allergies/Adverse Reactions: Allergies amlodipine besylate [From [facility]] Allergy (Verified 01/21/14 20:31) Vomiting hydromorphone HCl [From Dilaudid] Allergy (Verified 01/21/14 20:31) Vomiting lisinopril Allergy (Verified 01/21/14 20:31) Unknown Home Medications: Home Medications Medication Instructions Recorded Confirmed Last Taken Type Acetaminophen [Acetaminophen TAB] 650 mg PO Q4H PRN 30 Days tablet 06/21/19 07/02/19 07/01/19 Rx Aspirin EC 325 mg PO QDAY 30 Days tablet 06/21/19 07/02/19 07/01/19 Rx 325 AtorvaSTATin [Lipitor] 40 mg PO QHS 30 Days tablet 06/21/19 07/02/19 07/01/19 Rx 40 Ferrous Sulfate [Feosol 325 MG tab] 325 mg PO QDAY tablet 06/21/19 07/02/19 07/01/19 Rx 325 Folic Acid [Folvite] 1 mg PO QDAY tablet 06/21/19 07/02/19 07/01/19 Rx 1 Ondansetron [Zofran ODT TAB] 4 mg PO Q6H PRN 30 Days tab.rapdis 06/21/19 07/02/19 07/01/19 Rx 4 Clonidine HCl [Catapres] 0.3 mg PO BID 06/27/19 07/02/19 07/01/19 History 0.3 Insulin Glargine [Lantus] 5 units SQ QHS 06/27/19 07/02/19 07/01/19 History 2 Labetalol HCl [Labetalol 300mg TAB] 300 mg PO BID 06/27/19 07/02/19 07/01/19 History 300 hydrALAZINE [Apresoline TAB] 100 mg PO TID 06/27/19 07/02/19 07/01/19 History 325 Lansoprazole Solutab [Prevacid 30 mg FEEDTUBE QDAY tab.rapdis 07/01/19 07/02/19 07/01/19 Rx Solutab] Lipase/Protease/Amylase [Pancreaze 1 each FEEDTUBE PRN PRN capsule 07/01/19 07/02/19 07/01/[address] 10,500 Unit] 1 Sennosides Tab [Senokot] 8.6 mg PO Q12H PRN tablet 07/01/19 07/02/19 07/01/19 Rx 8.6 Active Medications: Generic Name Dose Route Start Last Admin Trade Name Freq PRN Reason Stop Dose Admin Acetaminophen 650 mg 07/01/19 20:15 Tylenol PO Q6H PRN Non Cardiac Pain or Temp>100.5 Albuterol 2.5 mg 07/01/19 20:16 Proventil IH Q4HRT PRN Shortness Of Breath Aspirin 325 mg 07/02/19 08:00 07/18/19 12:33 Ecotrin PO 325 mg QDAY CASPER Administration Atorvastatin Calcium 40 mg 07/01/19 21:00 07/17/19 23:06 Lipitor PO 40 mg QHS CASPER Administration Bisacodyl 10 mg 07/01/19 20:16 Dulcolax [place] QDAY PRN Constipation Bisacodyl 5 mg 07/08/19 12:19 07/08/19 12:38 Dulcolax PO 5 mg BID PRN Administration Constipation Clonidine HCl 0.1 mg 07/14/19 14:00 07/18/19 05:24 Catapres PO 0.1 mg Q8HR CASPER Administration Dextrose 50 ml 07/01/19 20:02 D50w (25gm) Syringe IV PRN PRN Hypoglycemia Ferrous Sulfate 325 mg 07/02/19 08:00 07/18/19 12:33 Feosol PO 325 mg QDAY CASPER Administration Folic Acid 1 mg 07/02/19 08:00 07/18/19 12:34 Folvite PO 1 mg QDAY CASPER Administration Heparin Sodium (Porcine) 5,000 unit 07/01/19 22:00 07/18/19 05:25 Heparin SUB-Q Not Given Q8HR [facility] Hydralazine HCl 100 mg 07/02/19 08:00 07/18/19 08:33 Apresoline PO 100 mg TID CASPER Administration Hydralazine HCl 10 mg 07/01/19 20:16 07/09/19 02:43 Apresoline IV 10 mg Q4H PRN Administration Hypertension Labetalol HCl 300 mg 07/18/19 08:00 07/18/19 12:34 Normodyne PO 300 mg BID CASPER Administration Nifedipine 60 mg 07/07/19 18:00 07/18/19 05:24 Procardia Xl PO 60 mg Q12H CASPER Administration Ondansetron HCl 4 mg 07/01/19 20:16 07/06/19 23:20 Zofran Odt PO 4 mg Q8H PRN Administration Nausea And Vomiting Ondansetron HCl 4 mg 07/09/19 11:00 07/10/19 06:10 Zofran IV 4 mg Q6H PRN Administration Nausea And Vomiting Pantoprazole Sodium 20 mg 07/02/19 08:00 07/18/19 12:34 Protonix PO 20 mg QDAY CASPER Administration Polyethylene Glycol 17 gm 07/01/19 20:32 07/16/19 06:29 Miralax 3350 PO 17 gm QDAY PRN Administration Constipation
--- NOTE | 2019-07-18 15:00 | Progress Note ---
Assessment and Plan Assessment and plan: --Acute ischemic stroke; left-sided weakness Continue therapy as prescribed. Continue ASA and statin, PT and OT rehabilitation MRI brain revealed small areas of subacute ischemia are identified in the head of the right caudate nucleus, left parietal white matter and left splenium of the corpus callosum as described. Volume loss. Advanced chronic white matter changes. Chronic focal infarcts in the right zavala radiata and inferior left cerebellum. --Malignant hypertension;Well controlled, On multiple high-dose antihypertensives and when necessary medications, Closely monitor blood pressures and, adjust doses as needed --Acute metabolic Hypertensive encephalopathy: Improving as blood pressure comes down --[place] stool 07/10 resolved, stool for occult blood was negative Patient refused blood tests for H&H --Nausea/vomiting/Acute gastritis: antiemetics,protonix and supportive care improved --CKD stage 4, unchanged, avoid nephrotoxins, nephrology following --DM Type 2 as patient a1c is 4.9 last month, she has had normal a1c of < 6 since 2017, no need for insulins at this time --Anemia: Continue supportive care --Moderate protein malnutrition, Dietitian consult --Diastolic CHF by history; chronic with no acute excarbation --Dypshagia, continue current diet. No new complaints --Depression, stable and improved -- DVT prophylaxis:Heparin --Disposition. Pt stable. Will likely follow prn History Interval history: Patient is 49-year-old woman with a history of anemia, diabetes, heart failure, stroke, hypertension, COPD, CVA with left side deficit for which she was in [facility] rehabilitation unit from [facility], who was about to be discharge from discharge to the acute Inpatient unit for confusion and elevated blood pressure with systolic BP over 200, inability to talk which began on the weekend per Dr. Singh patient was admitted to the hospital and imaging study showed, Small areas of subacute ischemia are identified in the head of the right caudate nucleus, left parietal white matter and left splenium of the corpus callosum. Patients meds were adjusted and then discharge back to Rehab. Hospitalist Physical - Constitutional Vitals: Temp Pulse Resp BP Pulse Ox 97.5 F L 72 18 126/67 100 07/18/19 12:00 07/18/19 12:00 07/18/19 12:00 07/18/19 12:00 07/18/19 12:00 General appearance: Present: no acute distress - EENT Eyes: Present: PERRL, EOM intact ENT: hearing intact, clear oral mucosa, dentition normal - Neck Neck: Present: supple, normal ROM - Respiratory Respiratory effort: normal Respiratory: bilateral: CTA - Cardiovascular Rhythm: regular Heart Sounds: Present: S1 & S2. Absent: gallop, rub - Extremities Extremities: no ischemia, No edema, Full ROM - Abdominal General gastrointestinal: soft, non-tender, non-distended, normal bowel sounds - Integumentary Integumentary: Present: clear, warm, dry - Neurologic Neurologic: CNII-XII intact, moves all extremities Results - Labs CBC & Chem 7: 07/13/19 06:38 07/17/19 06:22 Labs: Laboratory Last Values WBC 7.4 K/mm3 (4.5-11.0) 07/13/19 06:38 RBC 3.96 M/mm3 (3.65-5.03) 07/13/19 06:38 Hgb 10.6 gm/dl (10.1-14.3) 07/13/19 06:38 Hct 32.8 % (30.3-42.9) 07/13/19 06:38 MCV 83 fl (79-97) 07/13/19 06:38 MCH 27 pg (28-32) L 07/13/19 06:38 MCHC 32 % (30-34) 07/13/19 06:38 RDW 19.1 % (13.2-15.2) H 07/13/19 06:38 Plt Count 301 K/mm3 (140-440) 07/13/19 06:38 Lymph % (Auto) 7.7 % (13.4-35.0) L 07/09/19 12:28 [place] % (Auto) 5.4 % (0.0-7.3) 07/09/19 12:28 Eos % (Auto) 1.4 % (0.0-4.3) 07/09/19 12:28 Baso % (Auto) 0.2 % (0.0-1.8) 07/09/19 12:28 Lymph # 0.5 K/mm3 (1.2-5.4) L 07/09/19 12:28 [place] # 0.3 K/mm3 (0.0-0.8) 07/09/19 12:28 Eos # 0.1 K/mm3 (0.0-0.4) 07/09/19 12:28 Baso # 0.0 K/mm3 (0.0-0.1) 07/09/19 12:28 Seg Neutrophils % 85.3 % (40.0-70.0) H 07/09/19 12:28 Seg Neutrophils # 5.3 K/mm3 (1.8-7.7) 07/09/19 12:28 Sodium 141 mmol/L (137-145) 07/17/19 06:22 Potassium 3.7 mmol/L (3.6-5.0) 07/17/19 06:22 Chloride 101.7 mmol/L (98-107) 07/17/19 06:22 Carbon Dioxide 22 mmol/L (22-30) 07/17/19 06:22 21 mmol/L 07/17/19 06:22 BUN 54 mg/dL (7-17) H 07/17/19 06:22 4.1 mg/dL (0.7-1.2) H 07/17/19 06:22 Estimated GFR 14 ml/min 07/17/19 06:22 13 % 07/17/19 06:22 Glucose 146 mg/dL (65-100) H 07/17/19 06:22 POC Glucose 177 (70-105) H 07/18/19 11:38 Calcium 9.5 mg/dL (8.4-10.2) 07/17/19 06:22 Active Medications - Current Medications Current Medications: Generic Name Dose Route Start Last Admin Trade Name Paulq PRN Reason Stop Dose Admin Acetaminophen 650 mg 07/01/19 20:15 Tylenol PO Q6H PRN Non Cardiac Pain or Temp>100.5 Albuterol 2.5 mg 07/01/19 20:16 Proventil IH Q4HRT PRN Shortness Of Breath Aspirin 325 mg 07/02/19 08:00 07/18/19 12:33 Ecotrin PO 325 mg QDAY CASPER Administration Atorvastatin Calcium 40 mg 07/01/19 21:00 07/17/19 23:06 Lipitor PO 40 mg QHS CASPER Administration Bisacodyl 10 mg 07/01/19 20:16 Dulcolax [place] QDAY PRN Constipation Bisacodyl 5 mg 07/08/19 12:19 07/08/19 12:38 Dulcolax PO 5 mg BID PRN Administration Constipation Clonidine HCl 0.1 mg 07/14/19 14:00 07/18/19 05:24 Catapres PO 0.1 mg Q8HR CASPER Administration Dextrose 50 ml 07/01/19 20:02 D50w (25gm) Syringe IV PRN PRN Hypoglycemia Ferrous Sulfate 325 mg 07/02/19 08:00 07/18/19 12:33 Feosol PO 325 mg QDAY CASPER Administration Folic Acid 1 mg 07/02/19 08:00 07/18/19 12:34 Folvite PO 1 mg QDAY CASPER Administration Heparin Sodium (Porcine) 5,000 unit 07/01/19 22:00 07/18/19 05:25 Heparin SUB-Q Not Given Q8HR CASPER Hydralazine HCl 100 mg 07/02/19 08:00 07/18/19 08:33 Apresoline PO 100 mg TID CASPER Administration Hydralazine HCl 10 mg 07/01/19 20:16 07/09/19 02:43 Apresoline IV 10 mg Q4H PRN Administration Hypertension Labetalol HCl 300 mg 07/18/19 08:00 07/18/19 12:34 Normodyne PO 300 mg BID CASPER Administration Nifedipine 60 mg 07/07/19 18:00 07/18/19 05:24 Procardia Xl PO 60 mg Q12H CASPER Administration Ondansetron HCl 4 mg 07/01/19 20:16 07/06/19 23:20 Zofran Odt PO 4 mg Q8H PRN Administration Nausea And Vomiting Ondansetron HCl 4 mg 07/09/19 11:00 07/10/19 06:10 Zofran IV 4 mg Q6H PRN Administration Nausea And Vomiting Pantoprazole Sodium 20 mg 07/02/19 08:00 07/18/19 12:34 Protonix PO 20 mg QDAY CASPER Administration Polyethylene Glycol 17 gm 07/01/19 20:32 07/16/19 06:29 Miralax 3350 PO 17 gm QDAY PRN Administration Constipation Nutrition/Malnutrition Assess - Dietary Evaluation Nutrition/Malnutrition Findings: Nutrition Notes Start: 07/13/19 09:26 Freq: Status: Active Protocol: Document 07/13/19 09:26 RENEAALL (Rec: 07/13/19 09:30 JAZMYN [id number] [email or web address]) Nutrition Notes Need for Assessment generated from: LOS Initial or Follow up Brief Note Current Diagnosis CKD(stage I-IV),COPD,Diabetes, Hypertension,Heart Failure Other Pertinent Diagnosis Acute CVA, Dysphagia Current Diet Cardiac/Consistent CHO mech soft with ground meats Labs/Tests BUN 64 Cr 4.6 Pertinent Medications Feosol, Folic acid Height 5 ft 4 in Weight 69.2 kg [place] Body Weight (kg) 54.54 BMI 26.2 Weight Status Overweight Subjective/Other Information Pt screened for LOS. She has consumed 59% of meals since admission. Percent of energy/protein needs met: 72% energy 97% pro Burn Absent Trauma Absent Is patient on ventilator? No Is Patient Ambulatory and/or Out of Bed Yes REE-(Hudson-St. Jeor-ambulatory/OOB) [ 1705.600 [id number]] Calculation Used for Recommendations Hudson-St Jeor Additional Notes Pro needs 0.8-0.9g/k-62g/ day Fluid needs 1ml/kcal Nutrition Intervention Follow-Up By: 07/20/19 Additional Comments F/U: stable intakes, wt
[2019-07-19] MEDS: CATAPRES PO SCH ×3 (05:51→21:17)
[2019-07-19] MEDS: ECOTRIN PO SCH (09:25)
[2019-07-19] MEDS: FEOSOL PO SCH (09:25)
[2019-07-19] MEDS: FOLVITE PO SCH (09:25)
[2019-07-19] MEDS: PROTONIX PO SCH (09:25)
--- NOTE | 2019-07-19 09:34 | Progress Note ---
Assessment and Plan Assessment and plan: --Acute ischemic stroke; left-sided weakness Continue therapy as prescribed. Continue ASA and statin, PT and OT rehabilitation MRI brain revealed small areas of subacute ischemia are identified in the head of the right caudate nucleus, left parietal white matter and left splenium of the corpus callosum as described. Volume loss. Advanced chronic white matter changes. Chronic focal infarcts in the right zavala radiata and inferior left cerebellum. --Malignant hypertension;Well controlled, On multiple high-dose antihypertensives and when necessary medications, --Acute metabolic Hypertensive encephalopathy: Resolved. --Black Tar[place] stool 07/10 resolved, stool for occult blood was negative Patient refused blood tests for H&H --Nausea/vomiting/Acute gastritis: antiemetics,protonix and supportive care Resolved. --CKD stage 4, unchanged, avoid nephrotoxins, nephrology following --DM Type 2 as patient a1c is 4.9 last month, she has had normal a1c of < 6 since 2017, no need for insulins at this time --Anemia: Continue supportive care --Moderate protein malnutrition, Dietitian consult --Diastolic CHF by history; chronic with no acute excarbation --Dypshagia, continue current diet. No new complaints --Depression, stable and improved -- DVT prophylaxis:Heparin --Disposition. Pt stable. Will likely follow prn History Interval history: Patient is 49-year-old woman with a history of anemia, diabetes, heart failure, stroke, hypertension, COPD, CVA with left side deficit for which she was in [facility] rehabilitation unit from [facility], who was about to be discharge from discharge to the acute Inpatient unit for confusion and elevated blood pressure with systolic BP over 200, inability to talk which began on the weekend per Dr. Singh patient was admitted to the hospital and imaging study showed, Small areas of subacute ischemia are identified in the head of the right caudate nucleus, left parietal white matter and left splenium of the corpus callosum. Patients meds were adjusted and then discharge back to Rehab. Hospitalist Physical - Constitutional Vitals: Temp Pulse Resp BP Pulse Ox 98.5 F 72 18 112/41 97 07/19/19 07:20 07/19/19 09:26 07/19/19 09:26 07/19/19 09:26 07/19/19 09:26 General appearance: Present: no acute distress - EENT Eyes: Present: PERRL, EOM intact ENT: hearing intact, clear oral mucosa, dentition normal - Neck Neck: Present: supple, normal ROM - Respiratory Respiratory effort: normal Respiratory: bilateral: CTA - Cardiovascular Rhythm: regular Heart Sounds: Present: S1 & S2. Absent: gallop, rub - Extremities Extremities: no ischemia, No edema, Full ROM - Abdominal General gastrointestinal: soft, non-tender, non-distended, normal bowel sounds - Integumentary Integumentary: Present: clear, warm, dry - Neurologic Neurologic: CNII-XII intact, moves all extremities Results - Labs CBC & Chem 7: 07/13/19 06:38 07/17/19 06:22 Labs: Laboratory Last Values WBC 7.4 K/mm3 (4.5-11.0) 07/13/19 06:38 RBC 3.96 M/mm3 (3.65-5.03) 07/13/19 06:38 Hgb 10.6 gm/dl (10.1-14.3) 07/13/19 06:38 Hct 32.8 % (30.3-42.9) 07/13/19 06:38 MCV 83 fl (79-97) 07/13/19 06:38 MCH 27 pg (28-32) L 07/13/19 06:38 MCHC 32 % (30-34) 07/13/19 06:38 RDW 19.1 % (13.2-15.2) H 07/13/19 06:38 Plt Count 301 K/mm3 (140-440) 07/13/19 06:38 Lymph % (Auto) 7.7 % (13.4-35.0) L 07/09/19 12:28 [place] % (Auto) 5.4 % (0.0-7.3) 07/09/19 12:28 Eos % (Auto) 1.4 % (0.0-4.3) 07/09/19 12:28 Baso % (Auto) 0.2 % (0.0-1.8) 07/09/19 12:28 Lymph # 0.5 K/mm3 (1.2-5.4) L 07/09/19 12:28 [place] # 0.3 K/mm3 (0.0-0.8) 07/09/19 12:28 Eos # 0.1 K/mm3 (0.0-0.4) 07/09/19 12:28 Baso # 0.0 K/mm3 (0.0-0.1) 07/09/19 12:28 Seg Neutrophils % 85.3 % (40.0-70.0) H 07/09/19 12:28 Seg Neutrophils # 5.3 K/mm3 (1.8-7.7) 07/09/19 12:28 Sodium 141 mmol/L (137-145) 07/17/19 06:22 Potassium 3.7 mmol/L (3.6-5.0) 07/17/19 06:22 Chloride 101.7 mmol/L (98-107) 07/17/19 06:22 Carbon Dioxide 22 mmol/L (22-30) 07/17/19 06:22 21 mmol/L 07/17/19 06:22 BUN 54 mg/dL (7-17) H 07/17/19 06:22 4.1 mg/dL (0.7-1.2) H 07/17/19 06:22 Estimated GFR 14 ml/min 07/17/19 06:22 13 % 07/17/19 06:22 Glucose 146 mg/dL (65-100) H 07/17/19 06:22 POC Glucose 146 (70-105) H 07/18/19 21:48 Calcium 9.5 mg/dL (8.4-10.2) 07/17/19 06:22 Active Medications - Current Medications Current Medications: Generic Name Dose Route Start Last Admin Trade Name Freq PRN Reason Stop Dose Admin Acetaminophen 650 mg 07/01/19 20:15 Tylenol PO Q6H PRN Non Cardiac Pain or Temp>100.5 Albuterol 2.5 mg 07/01/19 20:16 Proventil IH Q4HRT PRN Shortness Of Breath Aspirin 325 mg 07/02/19 08:00 07/19/19 09:25 Ecotrin PO 325 mg QDAY CASPER Administration Atorvastatin Calcium 40 mg 07/01/19 21:00 07/18/19 22:20 Lipitor PO 40 mg QHS CASPER Administration Bisacodyl 10 mg 07/01/19 20:16 Dulcolax HI QDAY PRN Constipation Bisacodyl 5 mg 07/08/19 12:19 07/08/19 12:38 Dulcolax PO 5 mg BID PRN Administration Constipation Clonidine HCl 0.1 mg 07/14/19 14:00 07/19/19 05:51 Catapres PO 0.1 mg Q8HR CASPER Administration Dextrose 50 ml 07/01/19 20:02 D50w (25gm) Syringe IV PRN PRN Hypoglycemia Ferrous Sulfate 325 mg 07/02/19 08:00 07/19/19 09:25 Feosol PO 325 mg QDAY CASPER Administration Folic Acid 1 mg 07/02/19 08:00 07/19/19 09:25 Folvite PO 1 mg QDAY CASPER Administration Heparin Sodium (Porcine) 5,000 unit 07/01/19 22:00 07/18/19 22:20 Heparin SUB-Q Not Given Q8HR [facility] Hydralazine HCl 100 mg 07/02/19 08:00 07/18/19 20:00 Apresoline PO 100 mg TID CASPER Administration Hydralazine HCl 10 mg 07/01/19 20:16 07/09/19 02:43 Apresoline IV 10 mg Q4H PRN Administration Hypertension Labetalol HCl 300 mg 07/18/19 08:00 07/18/19 22:19 Normodyne PO 300 mg BID CASPER Administration Nifedipine 60 mg 07/07/19 18:00 07/18/19 19:49 Procardia Xl PO 60 mg Q12H CASPER Administration Ondansetron HCl 4 mg 07/01/19 20:16 07/06/19 23:20 Zofran Odt PO 4 mg Q8H PRN Administration Nausea And Vomiting Ondansetron HCl 4 mg 07/09/19 11:00 07/10/19 06:10 Zofran IV 4 mg Q6H PRN Administration Nausea And Vomiting Pantoprazole Sodium 20 mg 07/02/19 08:00 07/19/19 09:25 Protonix PO 20 mg QDAY CASPER Administration Polyethylene Glycol 17 gm 07/01/19 20:32 07/16/19 06:29 Miralax 3350 PO 17 gm QDAY PRN Administration Constipation Nutrition/Malnutrition Assess - Dietary Evaluation Nutrition/Malnutrition Findings: Nutrition Notes Start: 07/13/19 09:26 Freq: Status: Active Protocol: Document 07/13/19 09:26 JAZMYN (Rec: 07/13/19 09:30 JAZMYN RAN- [email or web address]) Nutrition Notes Need for Assessment generated from: LOS Initial or Follow up Brief Note Current Diagnosis CKD(stage I-IV),COPD,Diabetes, Hypertension,Heart Failure Other Pertinent Diagnosis Acute CVA, Dysphagia Current Diet Cardiac/Consistent CHO mech soft with ground meats Labs/Tests BUN 64 Cr 4.6 Pertinent Medications Feosol, Folic acid Height 5 ft 4 in Weight 69.2 kg [place] Body Weight (kg) 54.54 BMI 26.2 Weight Status Overweight Subjective/Other Information Pt screened for LOS. She has consumed 59% of meals since admission. Percent of energy/protein needs met: 72% energy 97% pro Burn Absent Trauma Absent Is patient on ventilator? No Is Patient Ambulatory and/or Out of Bed Yes REE-([place]-ambulatory/OOB) [ 1705.600 [id number]] Calculation [facility] Additional Notes Pro needs 0.8-0.9g/k-62g/ day Fluid needs 1ml/kcal Nutrition Intervention Follow-Up By: 07/20/19 Additional Comments F/U: stable intakes, wt
--- NOTE | 2019-07-19 11:37 | Progress Note ---
Assessment and Plan - Patient Problems (1) Chronic kidney disease, stage 4 (severe) Current Visit: Yes Status: Acute Plan to address problem: Kidney function about baseline. Follow-up electrolytes and renal function periodically (2) Heart failure with preserved ejection fraction Current Visit: No Status: Acute Plan to address problem: Continue medications (3) Hypertensive chronic kidney disease with stage 1 through stage 4 chronic kidney disease, or unspecified chronic kidney disease Current Visit: No Status: Acute Plan to address problem: Blood pressure is now controlled. Follow blood pressure on current medications (4) Type 2 diabetes mellitus with diabetic chronic kidney disease Current Visit: No Status: Chronic Plan to address problem: Blood sugar management by primary attending (5) Cerebrovascular accident (CVA) Current Visit: Yes Status: Acute Plan to address problem: Continue physical therapy Subjective Date of service: 07/19/19 Principal diagnosis: CVA Interval history: Patient seen lying in bed. She has no complaints. She is feeling better Objective - Exam Narrative Exam: Middle-age of tremor: Female lying in bed in no acute distress HEENT: NCAT, pink oral mucous membrane Neck: Supple, no venous distention CVS: S1S2 RRR with no murmur, rub or gallop Chest: Clear to auscultation Abdomen: Protuberant, soft, nontender, no organomegaly, bowel sounds are present Extremities: No edema Neuro: Awake, alert left hemiparesis - Vital Signs Vital signs: Vital Signs - 12hr 07/19/19 07/19/19 07/19/19 05:23 05:24 05:51 Temperature 97.5 F L Pulse Rate 85 83 68 Respiratory 18 Rate Blood Pressure 129/61 129/61 Blood Pressure [Right] O2 Sat by Pulse 99 98 Oximetry 07/19/19 07/19/19 07:20 09:26 Temperature 98.5 F Pulse Rate 71 72 Respiratory 16 18 Rate Blood Pressure 111/64 Blood Pressure 112/41 [Right] O2 Sat by Pulse 100 97 Oximetry - Lab 07/13/19 06:38 07/17/19 06:22 Most recent lab results Calcium 9.5 mg/dL (8.4-10.2) 07/17/19 06:22 Medications & Allergies - Medications Allergies/Adverse Reactions: Allergies amlodipine besylate [From Norvasc] Allergy (Verified 01/21/14 20:31) Vomiting hydromorphone HCl [From Dilaudid] Allergy (Verified 01/21/14 20:31) Vomiting lisinopril Allergy (Verified 01/21/14 20:31) Unknown Home Medications: Home Medications Medication Instructions Recorded Confirmed Last Taken Type Acetaminophen [Acetaminophen TAB] 650 mg PO Q4H PRN 30 Days tablet 06/21/19 07/02/19 07/01/19 Rx Aspirin EC 325 mg PO QDAY 30 Days tablet 06/21/19 07/02/19 07/01/19 Rx 325 AtorvaSTATin [Lipitor] 40 mg PO QHS 30 Days tablet 06/21/19 07/02/19 07/01/19 Rx 40 Ferrous Sulfate [Feosol 325 MG tab] 325 mg PO QDAY tablet 06/21/19 07/02/19 07/01/19 Rx 325 Folic Acid [Folvite] 1 mg PO QDAY tablet 06/21/19 07/02/19 07/01/19 Rx 1 Ondansetron [Zofran ODT TAB] 4 mg PO Q6H PRN 30 Days tab.rapdis 06/21/19 07/02/19 07/01/19 Rx 4 Clonidine HCl [Catapres] 0.3 mg PO BID 06/27/19 07/02/19 07/01/19 History 0.3 Insulin Glargine [Lantus] 5 units SQ QHS 06/27/19 07/02/19 07/01/19 History 2 Labetalol HCl [Labetalol 300mg TAB] 300 mg PO BID 06/27/19 07/02/19 07/01/19 History 300 hydrALAZINE [Apresoline TAB] 100 mg PO TID 06/27/19 07/02/19 07/01/19 History 325 Lansoprazole Solutab [Prevacid 30 mg FEEDTUBE QDAY tab.rapdis 07/01/19 07/02/19 07/01/19 Rx Solutab] Lipase/Protease/Amylase [Pancreaze 1 each FEEDTUBE PRN PRN capsule 07/01/19 07/02/19 07/01/[address] 10,500 Unit] 1 Sennosides Tab [Senokot] 8.6 mg PO Q12H PRN tablet 07/01/19 07/02/19 07/01/19 Rx 8.6 Active Medications: Generic Name Dose Route Start Last Admin Trade Name Freq PRN Reason Stop Dose Admin Acetaminophen 650 mg 07/01/19 20:15 Tylenol PO Q6H PRN Non Cardiac Pain or Temp>100.5 Albuterol 2.5 mg 07/01/19 20:16 Proventil IH Q4HRT PRN Shortness Of Breath Aspirin 325 mg 07/02/19 08:00 07/19/19 09:25 Ecotrin PO 325 mg QDAY CASPER Administration Atorvastatin Calcium 40 mg 07/01/19 21:00 07/18/19 22:20 Lipitor PO 40 mg QHS CASPER Administration Bisacodyl 10 mg 07/01/19 20:16 Dulcolax VA QDAY PRN Constipation Bisacodyl 5 mg 07/08/19 12:19 07/08/19 12:38 Dulcolax PO 5 mg BID PRN Administration Constipation Clonidine HCl 0.1 mg 07/14/19 14:00 07/19/19 05:51 Catapres PO 0.1 mg Q8HR CASPER Administration Dextrose 50 ml 07/01/19 20:02 D50w (25gm) Syringe IV PRN PRN Hypoglycemia Ferrous Sulfate 325 mg 07/02/19 08:00 07/19/19 09:25 Feosol PO 325 mg QDAY CASPER Administration Folic Acid 1 mg 07/02/19 08:00 07/19/19 09:25 Folvite PO 1 mg QDAY CASPER Administration Heparin Sodium (Porcine) 5,000 unit 07/01/19 22:00 07/18/19 22:20 Heparin SUB-Q Not Given Q8HR CASPER Hydralazine HCl 100 mg 07/02/19 08:00 07/18/19 20:00 Apresoline PO 100 mg TID CASPER Administration Hydralazine HCl 10 mg 07/01/19 20:16 07/09/19 02:43 Apresoline IV 10 mg Q4H PRN Administration Hypertension Labetalol HCl 300 mg 07/18/19 08:00 07/18/19 22:19 Normodyne PO 300 mg BID CASPER Administration Nifedipine 60 mg 07/07/19 18:00 07/18/19 19:49 Procardia Xl PO 60 mg Q12H CASPER Administration Ondansetron HCl 4 mg 07/01/19 20:16 07/06/19 23:20 Zofran Odt PO 4 mg Q8H PRN Administration Nausea And Vomiting Ondansetron HCl 4 mg 07/09/19 11:00 07/10/19 06:10 Zofran IV 4 mg Q6H PRN Administration Nausea And Vomiting Pantoprazole Sodium 20 mg 07/02/19 08:00 07/19/19 09:25 Protonix PO 20 mg QDAY CASPER Administration Polyethylene Glycol 17 gm 07/01/19 20:32 07/16/19 06:29 Miralax 3350 PO 17 gm QDAY PRN Administration Constipation
[2019-07-19] MEDS: APRESOLINE PO SCH ×3 (12:05→21:18)
[2019-07-19] MEDS: NORMODYNE PO SCH ×2 (12:26→21:17)
[2019-07-19] MEDS: HEPARIN SUB-Q SCH ×3 (14:05→22:15)
[2019-07-19] MEDS: PROCARDIA XL PO SCH ×2 (18:33→21:19)
[2019-07-20] MEDS: HEPARIN SUB-Q SCH ×3 (05:20→22:32)
[2019-07-20] MEDS: PROCARDIA XL PO SCH ×2 (05:27→20:29)
[2019-07-20] MEDS: CATAPRES PO SCH ×3 (05:28→22:30)
--- NOTE | 2019-07-20 08:07 | Progress Note ---
Assessment and Plan - Patient Problems (1) Chronic kidney disease, stage 4 (severe) Current Visit: Yes Status: Chronic Plan to address problem: Renal function at baseline. Remains at CKD IV. Needs close follow up as an outpatient within 1-2 weeks post discharge. (2) Heart failure with preserved ejection fraction Current Visit: No Status: Chronic Qualifiers: Heart failure chronicity: acute on chronic Qualified Code(s): I50.33 - Acute on chronic diastolic (congestive) heart failure Plan to address problem: Continue with current regimen. She remains euvolemic today. (3) Hypertensive chronic kidney disease with stage 1 through stage 4 chronic kidney disease, or unspecified chronic kidney disease Current Visit: No Status: Chronic Plan to address problem: Continue current regimen. (4) Type 2 diabetes mellitus with diabetic chronic kidney disease Current Visit: No Status: Chronic Qualifiers: Chronic kidney disease stage: stage 4 (severe) Plan to address problem: DM management per primary attending. (5) Cerebrovascular accident (CVA) Current Visit: Yes Status: Acute Plan to address problem: Working with physical therapy/rehab. Subjective Date of service: 07/20/19 Principal diagnosis: CVA Interval history: No acute issues this am. Hopefully will be DC from rehab this week. Objective - Vital Signs Vital signs: Vital Signs - 12hr 07/19/19 07/19/19 07/19/19 20:04 20:05 22:00 Temperature 98.4 F Pulse Rate 82 82 Respiratory 18 Rate Respiratory 18 Rate [Abdomen] Respiratory 17 Rate [Neck] Blood Pressure 145/62 O2 Sat by Pulse 100 98 Oximetry 07/20/19 07/20/19 07/20/19 00:15 04:56 04:57 Temperature 98.3 F 98.3 F Pulse Rate 75 75 72 Respiratory 20 18 Rate Respiratory Rate [Abdomen] Respiratory Rate [Neck] Blood Pressure 130/62 106/52 O2 Sat by Pulse 99 98 99 Oximetry 07/20/19 07:22 Temperature 97.8 F Pulse Rate 69 Respiratory 18 Rate Respiratory Rate [Abdomen] Respiratory Rate [Neck] Blood Pressure 118/60 O2 Sat by Pulse 100 Oximetry - General Appearance General appearance: well-nourished, appears stated age EENT: ATNC, PERRL Neck: no JVD, no thyromegaly Respiratory: Present: Clear to Ascultation Cardiology: regular, S1S2 Gastrointestinal: normal, normoactive bowel sounds Integumentary: no rash Neurologic: alert and oriented x3 Psychiatric: mood/affect appropriate, cooperative - Lab 07/13/19 06:38 07/17/19 06:22 Most recent lab results Calcium 9.5 mg/dL (8.4-10.2) 07/17/19 06:22 - Allied health notes Allied health notes reviewed: nursing Medications & Allergies - Medications Allergies/Adverse Reactions: Allergies amlodipine besylate [From Norvasc] Allergy (Verified 01/21/14 20:31) Vomiting hydromorphone HCl [From Dilaudid] Allergy (Verified 01/21/14 20:31) Vomiting lisinopril Allergy (Verified 01/21/14 20:31) Unknown Home Medications: Home Medications Medication Instructions Recorded Confirmed Last Taken Type Acetaminophen [Acetaminophen TAB] 650 mg PO Q4H PRN 30 Days tablet 06/21/19 07/02/19 07/01/19 Rx Aspirin EC 325 mg PO QDAY 30 Days tablet 06/21/19 07/02/19 07/01/19 Rx 325 AtorvaSTATin [Lipitor] 40 mg PO QHS 30 Days tablet 06/21/19 07/02/19 07/01/19 Rx 40 Ferrous Sulfate [Feosol 325 MG tab] 325 mg PO QDAY tablet 06/21/19 07/02/19 07/01/19 Rx 325 Folic Acid [Folvite] 1 mg PO QDAY tablet 06/21/19 07/02/19 07/01/19 Rx 1 Ondansetron [Zofran ODT TAB] 4 mg PO Q6H PRN 30 Days tab.rapdis 06/21/19 07/02/19 07/01/19 Rx 4 Clonidine HCl [Catapres] 0.3 mg PO BID 06/27/19 07/02/19 07/01/19 History 0.3 Insulin Glargine [Lantus] 5 units SQ QHS 06/27/19 07/02/19 07/01/19 History 2 Labetalol HCl [Labetalol 300mg TAB] 300 mg PO BID 06/27/19 07/02/19 07/01/19 History 300 hydrALAZINE [Apresoline TAB] 100 mg PO TID 06/27/19 07/02/19 07/01/19 History 325 Lansoprazole Solutab [Prevacid 30 mg FEEDTUBE QDAY tab.rapdis 07/01/19 07/02/19 07/01/19 Rx Solutab] Lipase/Protease/Amylase [Pancreaze 1 each FEEDTUBE PRN PRN capsule 07/01/19 07/02/19 07/01/19 Rx 10,500 Unit] 1 Sennosides Tab [Senokot] 8.6 mg PO Q12H PRN tablet 07/01/19 07/02/19 07/01/19 Rx 8.6 Active Medications: Generic Name Dose Route Start Last Admin Trade Name Freq PRN Reason Stop Dose Admin Acetaminophen 650 mg 07/01/19 20:15 Tylenol PO Q6H PRN Non Cardiac Pain or Temp>100.5 Albuterol 2.5 mg 07/01/19 20:16 Proventil IH Q4HRT PRN Shortness Of Breath Aspirin 325 mg 07/02/19 08:00 07/19/19 09:25 Ecotrin PO 325 mg QDAY CASPER Administration Atorvastatin Calcium 40 mg 07/01/19 21:00 07/19/19 21:18 Lipitor PO 40 mg QHS CASPER Administration Bisacodyl 10 mg 07/01/19 20:16 Dulcolax AL QDAY PRN Constipation Bisacodyl 5 mg 07/08/19 12:19 07/08/19 12:38 Dulcolax PO 5 mg BID PRN Administration Constipation Clonidine HCl 0.1 mg 07/14/19 14:00 07/20/19 05:28 Catapres PO 0.1 mg Q8HR CASPER Administration Dextrose 50 ml 07/01/19 20:02 D50w (25gm) Syringe IV PRN PRN Hypoglycemia Ferrous Sulfate 325 mg 07/02/19 08:00 07/19/19 09:25 Feosol PO 325 mg QDAY CASPER Administration Folic Acid 1 mg 07/02/19 08:00 07/19/19 09:25 Folvite PO 1 mg QDAY CASPER Administration Heparin Sodium (Porcine) 5,000 unit 07/01/19 22:00 07/20/19 05:20 Heparin SUB-Q Not Given Q8HR [facility] Hydralazine HCl 100 mg 07/02/19 08:00 07/19/19 21:18 Apresoline PO 100 mg TID CASPER Administration Hydralazine HCl 10 mg 07/01/19 20:16 07/09/19 02:43 Apresoline IV 10 mg Q4H PRN Administration Hypertension Labetalol HCl 300 mg 07/18/19 08:00 07/19/19 21:17 Normodyne PO 300 mg BID CASPER Administration Nifedipine 60 mg 07/07/19 18:00 07/20/19 05:27 Procardia Xl PO 60 mg Q12H CASPER Administration Ondansetron HCl 4 mg 07/01/19 20:16 07/06/19 23:20 Zofran Odt PO 4 mg Q8H PRN Administration Nausea And Vomiting Ondansetron HCl 4 mg 07/09/19 11:00 07/10/19 06:10 Zofran IV 4 mg Q6H PRN Administration Nausea And Vomiting Pantoprazole Sodium 20 mg 07/02/19 08:00 07/19/19 09:25 Protonix PO 20 mg QDAY CASPER Administration Polyethylene Glycol 17 gm 07/01/19 20:32 07/16/19 06:29 Miralax 3350 PO 17 gm QDAY PRN Administration Constipation
[2019-07-20] MEDS: FEOSOL PO SCH (09:14)
[2019-07-20] MEDS: PROTONIX PO SCH (09:14)
[2019-07-20] MEDS: APRESOLINE PO SCH ×3 (09:14→20:29)
[2019-07-20] MEDS: NORMODYNE PO SCH ×2 (09:14→22:30)
[2019-07-20] MEDS: FOLVITE PO SCH (09:14)
[2019-07-20] MEDS: ECOTRIN PO SCH (09:37)
--- NOTE | 2019-07-20 10:12 | Progress Note ---
Subjective Date of service: 07/20/19 Principal diagnosis: CVA Interval history: 49-year-old female admitted to outside hospital with shortness of breath and dyspnea on exertion. She is found to have a CHF exacerbation and hypertensive urgency with blood pressure 211/104. Cardiology and nephrology consults were placed. Lasix was discontinued due to elevated creatinine and should be restarted once creatinine is less than 3. Patient's baseline creatinine is 2.1- 2.2. Fluid restriction was started at 15 mL per day. Clonidine and hydralazine were both discontinued patient was continued on labetalol and verapamil. She had to iron infusions. Uncertain why patient was taken off of statin but per patient and her PCP advised not to take it. She does have a history of CVA but was only on aspirin. States statin was stopped by [employer] [employer] due to pain in left shoulder which was more likely due to tone. Statin was restarted at outside Hospital. We'll discuss secondary stroke prevention with patient made sure that she and family understand her need to continue with the statin. Patient also bernardo s a history of relapsing remitting multiple sclerosis but has not had a flair in 3 years. States she has falls about once a week. Patient is known to the service and was recently discharged to the acute care side of the hospital due to altered mental status, hypertensive emergency and ultimately CVA. Patient is participating in therapy and making reasonable progress. Taking rest breaks as needed. -BM reminded her about suppository. Monitor. Denies pain, palpitations, dyspnea, cough or joint pain. Overall patient states that she is feeling better, not having any issues with dizziness. Creatinine is improving, will continue to check every couple of days for trend. BP is finally stable in an acceptable range. No meds held since yesterday and no episodes of hypotension. LUE tone stable this AM. Walking improved - QC now, knees buckling after first therapy session. Attempting to return to Kevin level if possible to be able to return home safely alone. Patient refuses to discharge to a personal senior living or SNF environment. We will work to ensure that she is safe in order to go home with intermittent supervision. Due to all of her issues combined this is not our preference however with her refusal would leave little other options. She very well may be okay at home alone however she does have a high risk for a harmful event with no one there to assist her. She is considering staying with her grandmother for a short period at first. We will still push for the most appropriate and safe discharge while still allowing the patient make her own decision. All records, vitals, labs and medications were reviewed. No other issues per patient, nursing or therapy. Objective - Exam Narrative Exam: MUSCULOSKELETAL SPECIALTY EXAM CONSTITUTIONAL: Well developed, well nourished, appropriately groomed. RIGHT hand dominant. More interactive today RESPIRATORY: Clear to auscultation bilaterally, no increased work of breathing CARDIOVASCULAR: Regular Rate/ Rhythm, no swelling, edema or tenderness in BUE or BLE. All extremities warm. GI: + bowel sounds, soft, NTTP, nondistended. INTEGUMENTARY: Normal, no lesion, rash, masses or bruising noted in extremities. MUSCULOSKELETAL: BUE and BLE normal without defect, crepitus, subluxation, effusion, arthritic changes or TTP. SA EF WE EE FF FA HF KE ADF EHL APF R 5/5 overall L 4-/5 4-/5 4-/5 4-/5 4-/5 4-/5 4/5 4/5 4/5 4/5 4/5 ROM decreased on left upper extremity Tone increased on left upper extremity NEURO: Left facial droop including eye Sensation intact in all extremities without extinction. No tremor noted in 4 extremities. Follows 2 step commands. Aphasia not appreciated Dysarthria not appreciated, slowed maris with speech with slight slurring occasionally , improved Dysphagia not appreciated Neglect not appreciated POSTURE and GAIT: Sitting posture good. LOB at times. Gait reasonable with slowed short steps and QC. PSYCH: Alert, oriented x3, affect appears flattened. Insight appears intact. - Constitutional Vitals: Vital Signs - 12hr 07/20/19 07/20/19 07/20/19 00:15 04:56 04:57 Temperature 36.8 C 36.8 C Pulse Rate 75 75 72 Respiratory 20 18 Rate Blood Pressure 130/62 106/52 O2 Sat by Pulse 99 98 99 Oximetry 07/20/19 07:22 Temperature 36.6 C Pulse Rate 69 Respiratory 18 Rate Blood Pressure 118/60 O2 Sat by Pulse 100 Oximetry - Allied health notes Allied health notes reviewed: nursing, PT, OT FIMS assessment as documented by PT/OT/ST: Grooming Patient cleans teeth/dentures: Yes Patient young/brushes hair: Yes Patient washes, rinses and Yes dries face: Patient washes, rinses and Yes dries hands: Patient applies make-up: No Patient performs (no make-up/ 4/4 (100%) shaving): Grooming FIM Score 5. Supervision ([place] applies toothpaste or opens containers.) Toileting Toileting Device Commode over Toilet Patient able to: Adjust clothes before,Clean self,Adjust clothes after Patient able to perform: 3/3 (100%) Toileting FIM Score 4. Minimal Assistance (Patient = 75% or more. Needs touching.) Social interaction/Memory/Problem solving Social Interaction FIM Score 6. Mod. [place] (Mostly appropriate. May need meds. No supv.) Memory FIM Score 6. Modified [place](Mild difficulty remembering people/routines.) Problem Solving FIM Score 5. Supervision (Needs cueing <10% to solve routine problems.) Transfers Mode of Locomotion: Wheelchair Bed/Chair/Wheelchair Transfers 5. Supervision (Needs supv. or set-up for FIM Score sliding board, foot rests.) Toilet Transfers FIM Score 4. Minimal Assistance (Patient = 75% or more. Needs touching.) Patient transferred to: Shower Shower Transfers FIM Score 4. Minimal Assistance (Patient = 75% or more. Needs touching.) Locomotion- Stairs Device used on Stairs Handrail/s Number of Stairs Ascended/ 12 Descended Patient used handrail/support: Yes Stairs FIM Score 5. Supervision (12-14 stairs w/ supv. 4-6 stairs independently.) Locomotion- walk/wheelchair Most Frequent Mode of Walking Locomotion: Ambulation Distance 0 Walking FIM Score 5. Supervision (Minimum 150 ft. supv./cues or 50 ft. independently.) Wheelchair Propulsion Distance 150 Wheelchair FIM Score 5. Supervision (Minimum 150 ft. supv./cues or 50 ft. independently.) Eating Eating FIM Score 5. Supervision/Set-Up (Needs help w/ co ntainers, cutting meat, etc.) Dressing-Upper body Patient retrieves clothing No items: Patient applies/removes UE No prosthesis or orthosis: Upper Body Dressing FIM Score 3. Moderate Assistance (Patient = 50% or more) Dressing-lower body Patient retrieves clothing No items: Patient applies/removes LE No prosthesis or orthosis: Lower Body Dressing FIM Score 4. Minimal Assistance (Patient = 75% or more. Needs touching.) - Labs CBC & Chem 7: 07/13/19 06:38 07/17/19 06:22 Labs: Laboratory Results - last 72 hr 07/17/19 07/17/19 07/18/19 12:37 16:32 07:33 POC Glucose 173 H 260 H 173 H 07/18/19 07/18/19 07/18/19 11:38 16:08 21:48 POC Glucose 177 H 176 H 146 H 07/19/19 21:42 POC Glucose 199 H Assessment and Plan CVA with Left nondominant hemiplegia: discussed secondary stroke prevention and prognosis. continue medications and monitor for worsening neurologic condition. LUE spasticity: Stretching with OT, continue splinting. CKD with acute exacerbation: avoid nephrotoxic medications, monitor renal function, nephrology consult. CREA improving, monitor, close follow up with nephrology HTN: continue medications, adjust for normotension, nephrology consulted due to renal component. Q4h vitals. PRN coverage available. Better control now DM 2: Send home on SSI. Monitor GLU. A1c was normal but GLU typically 170-200 N/V: Zofran available, monitor. Resolved Z73.6 ADL dysfunction: OT will work on improving ability to perform ADLs (including assistive devices) to increase independence and decrease caregiver burden and improve functional transfers and mobility training. R26.2 Difficulty walking: PT will work on gait training and proper use of assistive devices and advance as appropriate to use of stairs and outside ambulation on uneven surfaces. R26.81 Unsteadiness on feet: PT will work on improving static and dynamic sitting and standing balance as well as proper use of assistive devices to decrease risk of falls. R26.89 Abnormality of gait: PT will work to improve safety and efficiency of gait through neuromotor training and gait training along with instruction on proper use of assistive devices. M62.81 Muscle weakness: PT & OT will work on strengthening exercises to improve functional strength including mixture of closed and open kinetic chain exercises. R53.81 Debility: PT & OT will work on improving overall functional status to improve participation with ADLs, mobility and social involvement. R53.83 Fatigue: PT & OT will work on improving endurance through aerobic exercises and therapeutic activity while monitoring patients tolerance for activity and vital signs as needed. MS: monitor for any worsening symptoms DVT ppx: heparin - refusing, have discussed that she needs to take it Pain: Continue physical modalities in therapy and pain medications as needed to achieve functional pain control. Sleep: Monitor and address as needed. Bowel: Monitor and address as needed. PRN meds available Appetite: Monitor and address as needed. Discharge planning: Pending therapy progress and care plan meeting. Will continue discussion with therapy team, SW, patient and family. Look to discharge tomorrow, would prefer closer supervision in the near term but patient is resistant Restrictions/ Precautions: Falls WB status: FWB Functional Hx: ADLs: Independent Cognition: Independent Mobility: RW Barriers to Discharge: Decreased mobility and ability to perform self care, balance deficits, weakness, spasticity Estimated Length of Stay: 10-14 days Discharge Destination: Home with family, will need some assistance at home, will continue to work towards highest level of independence.
--- NOTE | 2019-07-20 11:34 | Progress Note ---
Assessment and Plan Assessment and plan: --Acute ischemic stroke; left-sided weakness Continue therapy as prescribed. Continue ASA and statin, PT and OT rehabilitation MRI brain revealed small areas of subacute ischemia are identified in the head of the right caudate nucleus, left parietal white matter and left splenium of the corpus callosum as described. Volume loss. Advanced chronic white matter changes. Chronic focal infarcts in the right zavala radiata and inferior left cerebellum. --Malignant hypertension;Well controlled, On multiple high-dose antihypertensives and when necessary medications, --Acute metabolic Hypertensive encephalopathy: Resolved. --[place] stool 07/10 resolved, stool for occult blood was negative Patient refused blood tests for H&H --Nausea/vomiting/Acute gastritis: antiemetics,protonix and supportive care Resolved. --CKD stage 4, unchanged, avoid nephrotoxins, nephrology following --DM Type 2 as patient a1c is 4.9 last month, she has had normal a1c of < 6 since 2017, no need for insulins at this time --Anemia: Continue supportive care --Moderate protein malnutrition, Dietitian consult --Diastolic CHF by history; chronic with no acute excarbation --Dypshagia, continue current diet. No new complaints --Depression, stable and improved -- DVT prophylaxis:Heparin --Disposition. Pt stable. History Interval history: Patient is 49-year-old woman with a history of anemia, diabetes, heart failure, stroke, hypertension, COPD, CVA with left side deficit for which she was in [facility] rehabilitation unit from [facility], who was about to be discharge from discharge to the acute Inpatient unit for confusion and elevated blood pressure with systolic BP over 200, inability to talk which began on the weekend per Dr. Singh patient was admitted to the hospital and imaging study showed, Small areas of subacute ischemia are identified in the head of the right caudate nucleus, left parietal white matter and left splenium of the corpus callosum. Patients meds were adjusted and then discharge back to Rehab. Hospitalist Physical - Constitutional Vitals: Temp Pulse Resp BP Pulse Ox 98.8 F 71 16 145/72 100 07/20/19 11:18 07/20/19 11:18 07/20/19 11:18 07/20/19 11:18 07/20/19 11:18 General appearance: Present: no acute distress - EENT Eyes: Present: PERRL, EOM intact ENT: hearing intact, clear oral mucosa, dentition normal - Neck Neck: Present: supple, normal ROM - Respiratory Respiratory effort: normal Respiratory: bilateral: CTA - Cardiovascular Rhythm: regular Heart Sounds: Present: S1 & S2. Absent: gallop, rub - Extremities Extremities: no ischemia, No edema, Full ROM - Abdominal General gastrointestinal: soft, non-tender, non-distended, normal bowel sounds - Integumentary Integumentary: Present: clear, warm, dry - Neurologic Neurologic: CNII-XII intact, moves all extremities Results - Labs CBC & Chem 7: 07/13/19 06:38 07/17/19 06:22 Labs: Laboratory Last Values WBC 7.4 K/mm3 (4.5-11.0) 07/13/19 06:38 RBC 3.96 M/mm3 (3.65-5.03) 07/13/19 06:38 Hgb 10.6 gm/dl (10.1-14.3) 07/13/19 06:38 Hct 32.8 % (30.3-42.9) 07/13/19 06:38 MCV 83 fl (79-97) 07/13/19 06:38 MCH 27 pg (28-32) L 07/13/19 06:38 MCHC 32 % (30-34) 07/13/19 06:38 RDW 19.1 % (13.2-15.2) H 07/13/19 06:38 Plt Count 301 K/mm3 (140-440) 07/13/19 06:38 Lymph % (Auto) 7.7 % (13.4-35.0) L 07/09/19 12:28 [place] % (Auto) 5.4 % (0.0-7.3) 07/09/19 12:28 Eos % (Auto) 1.4 % (0.0-4.3) 07/09/19 12:28 Baso % (Auto) 0.2 % (0.0-1.8) 07/09/19 12:28 Lymph # 0.5 K/mm3 (1.2-5.4) L 07/09/19 12:28 [place] # 0.3 K/mm3 (0.0-0.8) 07/09/19 12:28 Eos # 0.1 K/mm3 (0.0-0.4) 07/09/19 12:28 Baso # 0.0 K/mm3 (0.0-0.1) 07/09/19 12:28 Seg Neutrophils % 85.3 % (40.0-70.0) H 07/09/19 12:28 Seg Neutrophils # 5.3 K/mm3 (1.8-7.7) 07/09/19 12:28 Sodium 141 mmol/L (137-145) 07/17/19 06:22 Potassium 3.7 mmol/L (3.6-5.0) 07/17/19 06:22 Chloride 101.7 mmol/L (98-107) 07/17/19 06:22 Carbon Dioxide 22 mmol/L (22-30) 07/17/19 06:22 21 mmol/L 07/17/19 06:22 BUN 54 mg/dL (7-17) H 07/17/19 06:22 4.1 mg/dL (0.7-1.2) H 07/17/19 06:22 Estimated GFR 14 ml/min 07/17/19 06:22 13 % 07/17/19 06:22 Glucose 146 mg/dL (65-100) H 07/17/19 06:22 POC Glucose 199 (70-105) H 07/19/19 21:42 Calcium 9.5 mg/dL (8.4-10.2) 07/17/19 06:22 Active Medications - Current Medications Current Medications: Generic Name Dose Route Start Last Admin Trade Name Freq PRN Reason Stop Dose Admin Acetaminophen 650 mg 07/01/19 20:15 Tylenol PO Q6H PRN Non Cardiac Pain or Temp>100.5 Albuterol 2.5 mg 07/01/19 20:16 Proventil IH Q4HRT PRN Shortness Of Breath Aspirin 325 mg 07/02/19 08:00 07/20/19 09:37 Ecotrin PO 325 mg QDAY [facility] Administration Atorvastatin Calcium 40 mg 07/01/19 21:00 07/19/19 21:18 Lipitor PO 40 mg QHS [facility]PER Administration Bisacodyl 10 mg 07/01/19 20:16 Dulcolax CO QDAY PRN Constipation Bisacodyl 5 mg 07/08/19 12:19 07/08/19 12:38 Dulcolax PO 5 mg BID PRN Administration Constipation Clonidine HCl 0.1 mg 07/14/19 14:00 07/20/19 05:28 Catapres PO 0.1 mg Q8HR [facility] Administration Dextrose 50 ml 07/01/19 20:02 D50w (25gm) Syringe IV PRN PRN Hypoglycemia Ferrous Sulfate 325 mg 07/02/19 08:00 07/20/19 09:14 Feosol PO 325 mg QDAY [facility]PER Administration Folic Acid 1 mg 07/02/19 08:00 07/20/19 09:14 Folvite PO 1 mg QDAY [facility]PER Administration Heparin Sodium (Porcine) 5,000 unit 07/01/19 22:00 07/20/19 05:20 Heparin SUB-Q Not Given Q8HR [facility] Hydralazine HCl 100 mg 07/02/19 08:00 07/20/19 09:14 Apresoline PO 100 mg TID [facility] Administration Hydralazine HCl 10 mg 07/01/19 20:16 07/09/19 02:43 Apresoline IV 10 mg Q4H PRN Administration Hypertension Insulin Human Lispro 0 unit 07/20/19 11:30 Humalog SUB-Q ACHS [facility] Protocol Labetalol HCl 300 mg 07/18/19 08:00 07/20/19 09:14 Normodyne PO 300 mg BID [facility] Administration Nifedipine 60 mg 07/07/19 18:00 07/20/19 05:27 Procardia Xl PO 60 mg Q12H [facility] Administration Ondansetron HCl 4 mg 07/01/19 20:16 07/06/19 23:20 Zofran Odt PO 4 mg Q8H PRN Administration Nausea And Vomiting Ondansetron HCl 4 mg 07/09/19 11:00 07/10/19 06:10 Zofran IV 4 mg Q6H PRN Administration Nausea And Vomiting Pantoprazole Sodium 20 mg 07/02/19 08:00 07/20/19 09:14 Protonix PO 20 mg QDAY [facility] Administration Polyethylene Glycol 17 gm 07/01/19 20:32 07/16/19 06:29 Miralax 3350 PO 17 gm QDAY PRN Administration Constipation Nutrition/Malnutrition Assess - Dietary Evaluation Nutrition/Malnutrition Findings: Nutrition Notes Start: 07/13/19 09:26 Freq: Status: Active Protocol: Document 07/13/19 09:26 [email or web address] (Rec: 07/13/19 09:30 RENEASUNIL [email or web address]) Nutrition Notes Need for Assessment generated from: LOS Initial or Follow up Brief Note Current Diagnosis CKD(stage I-IV),COPD,Diabetes, Hypertension,Heart Failure Other Pertinent Diagnosis Acute CVA, Dysphagia Current Diet Cardiac/Consistent CHO mech soft with ground meats Labs/Tests BUN 64 Cr 4.6 Pertinent Medications Feosol, Folic acid Height 5 ft 4 in Weight 69.2 kg [place] Body Weight (kg) 54.54 BMI 26.2 Weight Status Overweight Subjective/Other Information Pt screened for LOS. She has consumed 59% of meals since admission. Percent of energy/protein needs met: 72% energy 97% pro Burn Absent Trauma Absent Is patient on ventilator? No Is Patient Ambulatory and/or Out of Bed Yes REE-([place]. Jeor-ambulatory/OOB) [ 1705.600 [id number]] Calculation Used for Recommendations [place] or Additional Notes Pro needs 0.8-0.9g/k-62g/ day Fluid needs 1ml/kcal Nutrition Intervention Follow-Up By: 07/20/19 Additional Comments F/U: stable intakes, wt
[2019-07-20] MEDS: HumaLOG SUB-Q SCH (22:29)
[2019-07-21] MEDS: HEPARIN SUB-Q SCH (06:01)
[2019-07-21] MEDS: PROCARDIA XL PO SCH (06:05)
[2019-07-21] MEDS: CATAPRES PO SCH ×2 (06:05→13:02)
[2019-07-21] MEDS ORDERED: D50W (25GM) Syringe IV PRN (07:15)
--- NOTE | 2019-07-21 07:15 | Progress Note ---
Assessment and Plan Assessment and plan: --Acute ischemic stroke; left-sided weakness Continue therapy as prescribed. Continue ASA and statin, PT and OT rehabilitation MRI brain revealed small areas of subacute ischemia are identified in the head of the right caudate nucleus, left parietal white matter and left splenium of the corpus callosum as described. Volume loss. Advanced chronic white matter changes. Chronic focal infarcts in the right zavala radiata and inferior left cerebellum. --Malignant hypertension;Well controlled, On multiple high-dose antihypertensives and when necessary medications, --Acute metabolic Hypertensive encephalopathy: Resolved. --[place] stool 07/10 resolved, stool for occult blood was negative Patient refused blood tests for H&H --Nausea/vomiting/Acute gastritis: antiemetics,protonix and supportive care Resolved. --CKD stage 4, unchanged, avoid nephrotoxins, nephrology following --DM Type 2 as patient a1c is 4.9 last month, she has had normal a1c of < 6 since 2017, no need for insulins at this time --Anemia: Continue supportive care --Moderate protein malnutrition, Dietitian consult --Diastolic CHF by history; chronic with no acute excarbation --Dypshagia, continue current diet. No new complaints --Depression, stable and improved -- DVT prophylaxis:Heparin --Disposition. Pt stable. History Interval history: Patient was seen and evaluated this morning, Patient was alert and oriented. Hospitalist Physical - Physical exam Narrative exam: Not in cardiopulmonary distress. The patient appeared well nourished and normally developed. Vital signs as documented. Head exam is unremarkable. No scleral icterus . Neck is without jugular venous distension, thyromegaly, or carotid bruits. Lungs are clear to auscultation. Cardiac exam reveals regular rate and Rhythm. First and second heart sounds normal. No murmurs, rubs or gallops. Abdominal exam reveals normal bowel sounds, no masses, no organomegaly and no aortic enlargement. Extremities are nonedematous and both femoral and pedal pulses are normal. 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 Mild weakness of the RUE. - Constitutional Vitals: Temp Pulse Resp BP Pulse Ox 98.4 F 76 20 125/58 97 07/21/19 05:40 07/21/19 06:05 07/21/19 05:40 07/21/19 06:05 07/21/19 05:40 General appearance: Present: no acute distress Results - Labs CBC & Chem 7: 07/13/19 06:38 07/17/19 06:22 Labs: Laboratory Last Values WBC 7.4 K/mm3 (4.5-11.0) 07/13/19 06:38 RBC 3.96 M/mm3 (3.65-5.03) 07/13/19 06:38 Hgb 10.6 gm/dl (10.1-14.3) 07/13/19 06:38 Hct 32.8 % (30.3-42.9) 07/13/19 06:38 MCV 83 fl (79-97) 07/13/19 06:38 MCH 27 pg (28-32) L 07/13/19 06:38 MCHC 32 % (30-34) 07/13/19 06:38 RDW 19.1 % (13.2-15.2) H 07/13/19 06:38 Plt Count 301 K/mm3 (140-440) 07/13/19 06:38 Lymph % (Auto) 7.7 % (13.4-35.0) L 07/09/19 12:28 Mayes % (Auto) 5.4 % (0.0-7.3) 07/09/19 12:28 Eos % (Auto) 1.4 % (0.0-4.3) 07/09/19 12:28 Baso % (Auto) 0.2 % (0.0-1.8) 07/09/19 12:28 Lymph # 0.5 K/mm3 (1.2-5.4) L 07/09/19 12:28 Mayes # 0.3 K/mm3 (0.0-0.8) 07/09/19 12:28 Eos # 0.1 K/mm3 (0.0-0.4) 07/09/19 12:28 Baso # 0.0 K/mm3 (0.0-0.1) 07/09/19 12:28 Seg Neutrophils % 85.3 % (40.0-70.0) H 07/09/19 12:28 Seg Neutrophils # 5.3 K/mm3 (1.8-7.7) 07/09/19 12:28 Sodium 141 mmol/L (137-145) 07/17/19 06:22 Potassium 3.7 mmol/L (3.6-5.0) 07/17/19 06:22 Chloride 101.7 mmol/L (98-107) 07/17/19 06:22 Carbon Dioxide 22 mmol/L (22-30) 07/17/19 06:22 21 mmol/L 07/17/19 06:22 BUN 54 mg/dL (7-17) H 07/17/19 06:22 4.1 mg/dL (0.7-1.2) H 07/17/19 06:22 Estimated GFR 14 ml/min 07/17/19 06:22 13 % 07/17/19 06:22 Glucose 146 mg/dL (65-100) H 07/17/19 06:22 POC Glucose 255 (70-105) H 07/20/19 20:51 Calcium 9.5 mg/dL (8.4-10.2) 07/17/19 06:22 Active Medications - Current Medications Current Medications: Generic Name Dose Route Start Last Admin Trade Name Freq PRN Reason Stop Dose Admin Acetaminophen 650 mg 07/01/19 20:15 Tylenol PO Q6H PRN Non Cardiac Pain or Temp>100.5 Albuterol 2.5 mg 07/01/19 20:16 Proventil IH Q4HRT PRN Shortness Of Breath Aspirin 325 mg 07/02/19 08:00 07/20/19 09:37 Ecotrin PO 325 mg QDAY CASPER Administration Atorvastatin Calcium 40 mg 07/01/19 21:00 07/20/19 20:29 Lipitor PO 40 mg QHS CASPER Administration Bisacodyl 10 mg 07/01/19 20:16 Dulcolax UT QDAY PRN Constipation Bisacodyl 5 mg 07/08/19 12:19 07/08/19 12:38 Dulcolax PO 5 mg BID PRN Administration Constipation Clonidine HCl 0.1 mg 07/14/19 14:00 07/21/19 06:05 Catapres PO 0.1 mg Q8HR CASPER Administration Dextrose 50 ml 07/01/19 20:02 D50w (25gm) Syringe IV PRN PRN Hypoglycemia Ferrous Sulfate 325 mg 07/02/19 08:00 07/20/19 09:14 Feosol PO 325 mg QDAY CASPER Administration Folic Acid 1 mg 07/02/19 08:00 07/20/19 09:14 Folvite PO 1 mg QDAY CASPER Administration Heparin Sodium (Porcine) 5,000 unit 07/01/19 22:00 07/21/19 06:01 Heparin SUB-Q Not Given Q8HR CASPER Hydralazine HCl 100 mg 07/02/19 08:00 07/20/19 20:29 Apresoline PO 100 mg TID CASPER Administration Hydralazine HCl 10 mg 07/01/19 20:16 07/09/19 02:43 Apresoline IV 10 mg Q4H PRN Administration Hypertension Insulin Human Lispro 0 unit 07/20/19 11:30 07/20/19 22:29 Humalog SUB-Q 3 unit ACHS CASPER Administration Protocol Labetalol HCl 300 mg 07/18/19 08:00 07/20/19 22:30 Normodyne PO 300 mg BID CASPER Administration Nifedipine 60 mg 07/07/19 18:00 07/21/19 06:05 Procardia Xl PO 60 mg Q12H CASPER Administration Ondansetron HCl 4 mg 07/01/19 20:16 07/06/19 23:20 Zofran Odt PO 4 mg Q8H PRN Administration Nausea And Vomiting Ondansetron HCl 4 mg 07/09/19 11:00 07/10/19 06:10 Zofran IV 4 mg Q6H PRN Administration Nausea And Vomiting Pantoprazole Sodium 20 mg 07/02/19 08:00 07/20/19 09:14 Protonix PO 20 mg QDAY CASPER Administration Polyethylene Glycol 17 gm 07/01/19 20:32 07/16/19 06:29 Miralax 3350 PO 17 gm QDAY PRN Administration Constipation Nutrition/Malnutrition Assess - Dietary Evaluation Nutrition/Malnutrition Findings: Nutrition Notes Start: 07/13/19 09:26 Freq: Status: Active Protocol: Document 07/20/19 15:10 RM (Rec: 07/20/19 15:14 RM [id number]) Nutrition Notes Initial or Follow up Brief Note Current Diagnosis CKD(stage I-IV),COPD,Diabetes, Hypertension,Heart Failure Other Pertinent Diagnosis Acute CVA, Dysphagia Current Diet Cardiac/Consistent CHO mech soft with ground meats Labs/Tests Reviewed Pertinent Medications Reviewed Height 5 ft 4 in Weight 77.27 kg [place] Body Weight (kg) 54.54 BMI 29.2 Subjective/Other Information Pt sitting in chair next to bed at time of visit. Pt stated that she eats 75% of her meals. Percent of energy/protein needs met: 82%/100% Burn Absent Trauma Absent Is patient on ventilator? No Is Patient Ambulatory and/or Out of Bed Yes REE-(Cucumber-. Jein-ambulatory/OOB) [ 1810.510 [id number]] Calculation Used for Recommendations [facility] Additional Notes Pro needs 0.8-0.9g/k-62g/ day Fluid needs 1ml/kcal Nutrition Intervention Revisit per MD consult or patient Sign Off request:
--- NOTE | 2019-07-21 08:46 | Progress Note ---
Assessment and Plan - Patient Problems (1) Chronic kidney disease, stage 4 (severe) Current Visit: Yes Status: Chronic Plan to address problem: Renal function at baseline. Remains at CKD IV. Needs close follow up as an outpatient within 1-2 weeks post discharge. (2) Heart failure with preserved ejection fraction Current Visit: No Status: Chronic Qualifiers: Heart failure chronicity: acute on chronic Qualified Code(s): I50.33 - Acute on chronic diastolic (congestive) heart failure Plan to address problem: Continue with current regimen. She remains euvolemic today. (3) Hypertensive chronic kidney disease with stage 1 through stage 4 chronic kidney disease, or unspecified chronic kidney disease Current Visit: No Status: Chronic Plan to address problem: Continue current regimen. (4) Type 2 diabetes mellitus with diabetic chronic kidney disease Current Visit: No Status: Chronic Qualifiers: Chronic kidney disease stage: stage 4 (severe) Plan to address problem: DM management per primary attending. (5) Cerebrovascular accident (CVA) Current Visit: Yes Status: Acute Plan to address problem: Working with physical therapy/rehab. Subjective Date of service: 07/21/19 Principal diagnosis: CVA Interval history: No acute issues. Pending DC home. Objective - Vital Signs Vital signs: Vital Signs - 12hr 07/20/19 07/21/19 07/21/19 22:30 05:40 06:05 Temperature 98.4 F Pulse Rate 84 76 76 Respiratory 20 Rate Blood Pressure 154/78 125/58 125/58 O2 Sat by Pulse 97 Oximetry 07/21/19 07:31 Temperature 97.9 F Pulse Rate 76 Respiratory 18 Rate Blood Pressure 123/54 O2 Sat by Pulse 99 Oximetry - General Appearance General appearance: well-developed, well-nourished, appears stated age EENT: ATNC, PERRL Neck: no JVD, no thyromegaly Respiratory: Present: Clear to Ascultation, Normal Exam Cardiology: regular, S1S2 Gastrointestinal: normal, normoactive bowel sounds Integumentary: no rash, warm and dry Neurologic: alert and oriented x3 Musculoskeletal: deferred Psychiatric: mood/affect appropriate, cooperative - Lab 07/13/19 06:38 07/17/19 06:22 Most recent lab results Calcium 9.5 mg/dL (8.4-10.2) 07/17/19 06:22 - Allied health notes Allied health notes reviewed: nursing Medications & Allergies - Medications Allergies/Adverse Reactions: Allergies amlodipine besylate [From Norvasc] Allergy (Verified 01/21/14 20:31) Vomiting hydromorphone HCl [From Dilaudid] Allergy (Verified 01/21/14 20:31) Vomiting lisinopril Allergy (Verified 01/21/14 20:31) Unknown Home Medications: Home Medications Medication Instructions Recorded Confirmed Last Taken Type Acetaminophen [Acetaminophen TAB] 650 mg PO Q4H PRN 30 Days tablet 06/21/19 07/02/19 07/01/19 Rx Aspirin EC 325 mg PO QDAY 30 Days tablet 06/21/19 07/02/19 07/01/19 Rx 325 AtorvaSTATin [Lipitor] 40 mg PO QHS 30 Days tablet 06/21/19 07/02/19 07/01/19 Rx 40 Ferrous Sulfate [Feosol 325 MG tab] 325 mg PO QDAY tablet 06/21/19 07/02/19 07/01/19 Rx 325 Folic Acid [Folvite] 1 mg PO QDAY tablet 06/21/19 07/02/19 07/01/19 Rx 1 Ondansetron [Zofran ODT TAB] 4 mg PO Q6H PRN 30 Days tab.rapdis 06/21/1907/01/19 Rx 4 Clonidine HCl [Catapres] 0.3 mg PO BID 06/27/19 07/02/19 07/01/19 History 0.3 Insulin Glargine [Lantus] 5 units SQ QHS 06/27/19 07/02/19 07/01/19 History 2 Labetalol HCl [Labetalol 300mg TAB] 300 mg PO BID 06/27/19 07/02/19 07/01/19 History 300 hydrALAZINE [Apresoline TAB] 100 mg PO TID 06/27/19 07/02/19 07/01/19 History 325 Lansoprazole Solutab [Prevacid 30 mg FEEDTUBE QDAY tab.rapdis 07/01/19 07/02/19 07/01/19 Rx Solutab] Lipase/Protease/Amylase [Pancreaze 1 each FEEDTUBE PRN PRN capsule 07/01/19 07/02/19 07/01/[address] 10,500 Unit] 1 Sennosides Tab [Senokot] 8.6 mg PO Q12H PRN tablet 07/01/19 07/02/19 07/01/19 Rx 8.6 Active Medications: Generic Name Dose Route Start Last Admin Trade Name Freq PRN Reason Stop Dose Admin Acetaminophen 650 mg 07/01/19 20:15 Tylenol PO Q6H PRN Non Cardiac Pain or Temp>100.5 Albuterol 2.5 mg 07/01/19 20:16 Proventil IH Q4HRT PRN Shortness Of Breath Aspirin 325 mg 07/02/19 08:00 07/20/19 09:37 Ecotrin PO 325 mg QDAY CASPER Administration Atorvastatin Calcium 40 mg 07/01/19 21:00 07/20/19 20:29 Lipitor PO 40 mg QHS CASPER Administration Bisacodyl 10 mg 07/01/19 20:16 Dulcolax SC QDAY PRN Constipation Bisacodyl 5 mg 07/08/19 12:19 07/08/19 12:38 Dulcolax PO 5 mg BID PRN Administration Constipation Clonidine HCl 0.1 mg 07/14/19 14:00 07/21/19 06:05 Catapres PO 0.1 mg Q8HR CASPER Administration Dextrose 50 ml 07/01/19 20:02 D50w (25gm) Syringe IV PRN PRN Hypoglycemia Dextrose 50 ml 07/21/19 07:15 D50w (25gm) Syringe IV PRN PRN Hypoglycemia Ferrous Sulfate 325 mg 07/02/19 08:00 07/20/19 09:14 Feosol PO 325 mg QDAY CASPER Administration Folic Acid 1 mg 07/02/19 08:00 07/20/19 09:14 Folvite PO 1 mg QDAY CASPER Administration Heparin Sodium (Porcine) 5,000 unit 07/01/19 22:00 07/21/19 06:01 Heparin SUB-Q Not Given Q8HR CASPER Hydralazine HCl 100 mg 07/02/19 08:00 07/20/19 20:29 Apresoline PO 100 mg TID CASPER Administration Hydralazine HCl 10 mg 07/01/19 20:16 07/09/19 02:43 Apresoline IV 10 mg Q4H PRN Administration Hypertension Insulin Glargine 5 units 07/21/19 21:00 Lantus SUB-Q QHS CASPER Insulin Human Lispro 0 unit 07/20/19 11:30 07/20/19 22:29 Humalog SUB-Q 3 unit ACHS CASPER Administration Protocol Labetalol HCl 300 mg 07/18/19 08:00 07/20/19 22:30 Normodyne PO 300 mg BID CASPER Administration Nifedipine 60 mg 07/07/19 18:00 07/21/19 06:05 Procardia Xl PO 60 mg Q12H CASPER Administration Ondansetron HCl 4 mg 07/01/19 20:16 07/06/19 23:20 Zofran Odt PO 4 mg Q8H PRN Administration Nausea And Vomiting Ondansetron HCl 4 mg 07/09/19 11:00 07/10/19 06:10 Zofran IV 4 mg Q6H PRN Administration Nausea And Vomiting Pantoprazole Sodium 20 mg 07/02/19 08:00 07/20/19 09:14 Protonix PO 20 mg QDAY CASPER Administration Polyethylene Glycol 17 gm 07/01/19 20:32 07/16/19 06:29 Miralax 3350 PO 17 gm QDAY PRN Administration Constipation
--- NOTE | 2019-07-21 09:13 | Discharge Summary ---
Providers - Providers Date of Admission: 07/01/19 20:02 Date of discharge: 07/21/19 Attending physician: SAMUEL RANDALL III, MD 07/01/19 20:02 Occupational Therapy Evaluate and Treat [CONS] Routine Comment: Reason For Exam: ADL dysfunction Physical Therapy Evaluation and Treat [CONS] Routine Comment: Reason For Exam: Mobility Dysfunction 07/01/19 20:12 Consult to Case Management [CONS] Routine Services Needed at Discharge: Home Health Services Notified:: yes Was contact made?: Yes Comment:: order given to CM 07/02/19 11:29 Consult to Physician [CONS] Routine Comment: Known patient, back in rehab Consulting Provider: JOSH NIELSEN Physician Instructions: Reason For Exam: CKD and HTN Primary care physician: MEET IRVIN Hospitalization Reason for admission: CVA Condition: Fair Hospital course: 49-year-old female admitted to outside hospital with shortness of breath and dyspnea on exertion. She is found to have a CHF exacerbation and hypertensive urgency with blood pressure 211/104. Cardiology and nephrology consults were placed. Lasix was discontinued due to elevated creatinine and should be restarted once creatinine is less than 3. Patient's baseline creatinine is 2.1- 2.2. Fluid restriction was started at 15 mL per day. Clonidine and hydralazine were both discontinued patient was continued on labetalol and verapamil. She had two iron infusions. Uncertain why patient was taken off of statin but per patient her BREASTER advised not to take it due to pain in left shoulder which was more likely due to tone/spasticity. She does have a history of CVA but was only on aspirin. Statin was restarted at outside Hospital. We'll discuss secondary stroke prevention with patient made sure that she and family understand her need to continue with the statin. Patient also has a history of relapsing remitting multiple sclerosis but has not had a flair in 3 years. States she has falls about once a week. Patient is known to the service and was recently discharged to the acute care side of the hospital due to altered mental status, hypertensive emergency and ultimately CVA. Leading up to the transfer the patient's antihypertensive medications were held on several occasions despite written and verbal orders to the contrary. Patient's blood pressure spiked and she developed AMS. Complicating the issue, she was also recently started on baclofen and it was difficult to tell if she was having the altered mental status due to the low dose of baclofen or if she was actually having a CVA at the time. There were no additional findings other than AMS to strongly suggest CVA during her acute episode. During this time she remained responsive but was definitely different than she was before. She was not able to safely swallow at the time due to the altered mental status and so all oral antihypertensives were then stopped and replaced with IV antihypertensives. An attempt was made to obtain a stat MRI head however due to the issue occurring on the weekend this was not available. We did obtain a stat repeat head CT which was not different from prior head CT that was ordered earlier in the day. Neurology consult requested a CT with contrast however due to her renal function nephrology did not want to go this route and I agreed. At that point we contacted hospitalist and discharged her to their care where she was started on a Cardene drip and her blood pressure was slowly corrected. (Unfortunately we were unable to keep her at a lower dose of clonidine which she states makes her drowsy home. We had hoped to control her blood pressure with either a lower dose of clonidine are without clonidine at all. We will monitor for drowsiness and if it becomes problematic will attempt to transition to other alternatives.) Once MRIs were available again hospitalists obtained an MRI head which did show subacute infarct. She had difficulty with speech and dysphagia initially which were treated by CHART [facility]ER and she regained her ability to swallow before being readmitted on rehabilitation. At this point she is deemed stable enough to restart her rehabilitation and hopefully regain the ground that we have lost to get her to the point of being able to return home. I did consult nephrology to continue seeing her for her renal function as well as for optimization of her hypertension which is linked to her poor renal function. Have also written explicit orders and talked to nursing about holding of any blood pressure medications. Orders on each antihypertensive medication and a general communication order clearly state to call me before holding any of her antihypertensives if she is anywhere outside of the hold parameters that are listed. Blood pressure medications were monitored closely and adjusted to obtain normotension. Patient's blood pressure was very labile and difficult to control. We do have her on a regimen of antihypertensives that seems to be working well and have not had to hold any doses due to hypotension in the last 5-6 days. Diabetes was well controlled with carpal controlled diet. We did cover her with sliding scale insulin and will send her home with the same. She'll need continued follow-up with her PCP for adjustments with controlling her diabetes which according to her A1c's is fairly well controlled. Her renal function worsened during her stay. Nephrology placed her on Bumex in an attempt to control her blood pressure however her creatinine spiked from baseline of 3.3-4.7. Bumex was then stopped with a slow resultant decrease in her creatinine level. As of last check on 07/17 her creatinine was 4.1. Other checks were ordered however the patient has been refusing laboratory blood draws here in the recent days even though she has been counseled as to why this is important for us to check. Her diastolic CHF was well controlled without any signs of exacerbation. We'll defer to nephrologists for restarting diuretic once her renal function has recovered. Of note patient has also refused subcutaneous heparin for DVT prophylaxis. This was also explained to her why it was important for her to continue taking this while an inpatient in the hospital. At the time of discharge patient was doing fairly well and has regained almost all of her function that she had previously prior to being discharged due to his altered mental status and subsequent stroke. She is able to ambulate with min assist to contact guard using a narrow-base quad cane. She was also able to navigate steps and uneven surfaces. She does have intermittent loss of balance and some days are better than others. She continues to have tone in the left upper extremity with some spasticity. She has a splint to wear her on the left hand to help with stretching to reduce the tone. She is standby assist for grooming and hygiene, bathing, lower body dressing and supervision for feeding and upper body dressing. She did not tolerate the baclofen well which we were attempting to see if we could decrease her left upper extremity tone. She actually would be a very good candidate for low dose Botox injections if she can find the means to pay for this as an outpatient. I am uncertain if her current insurance would provide coverage. Otherwise continued stretching would suit her well. Due to her fluctuating status with good and bad days as well as her continuous blood pressure control we have encouraged her to either go home with family or friends who can provide close supervision on a regular basis or to have someone live with her. She is adamantly against going to a half-way facility or personal intermediate both of which were suggested by family. She does have decision-making capacity and understands the consequences of her choices. At this point we will discharge her home and she is planning to spend a short period of time with a family member (likely grandmother) prior to returning home alone. We will make sure that she has home health nursing, PT, and OT to help her with this transition. She'll need to make sure that she follows up with her warehouse administrator and primary care physician in order to continue to monitor and control her chronic medical conditions. We have discussed secondary stroke prevention and the need for her to take her aspirin and statin daily along with controlling her diabetes, hypertension and eating well. Disposition: DC/TX- HOME UNDER HOME HL Time spent for discharge: > 35mins - Discharge Diagnoses (1) Cerebrovascular accident (CVA) Status: Chronic Qualifiers: CVA mechanism: thrombosis Precerebral and cerebral artery: anterior cerebral artery Laterality of affected vessel: right Qualified Code(s): I63.321 - Cerebral infarction due to thrombosis of right anterior cerebral artery (2) Chronic kidney disease, stage 4 (severe) Status: Chronic (3) CHF (congestive heart failure) Status: Chronic Qualifiers: Heart failure type: diastolic Heart failure chronicity: chronic Qualified Code(s): I50.32 - Chronic diastolic (congestive) heart failure (4) Diabetes Status: Chronic Qualifiers: Diabetes mellitus type: type 2 Diabetes mellitus director of sustainability insulin use: with director of sustainability use Diabetes mellitus complication status: with kidney co mplications Diabetes mellitus complication detail: with chronic kidney disease Chronic kidney disease stage: stage 4 (severe) Qualified Code(s): E11.22 - Type 2 diabetes mellitus with diabetic chronic kidney disease; N18.4 - Chronic kidney disease, stage 4 (severe); 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 (5) Hypertension Status: Chronic Qualifiers: Hypertension type: essential hypertension Qualified Code(s): I10 - Essential (primary) hypertension (6) Multiple sclerosis Status: Chronic Core Measure Documentation - Palliative Care Palliative Care/ Comfort Measures: Not Applicable - Core Measures Any of the following diagnoses?: heart failure, stroke - Heart Failure Discharge Requirements JUANITA/ARB for LVSD if EF <40%: Not Applicable Reason for no JUANITA/ARB: Renal impairment Beta donavan at discharge: Yes - Stroke Discharge Requirements Statin for LDL = or >70 mg/dl on DC: Yes Anticoag for atrial fib/atrial flutter: Not Applicable Antithrombotic for ischemic stroke: Yes Exam - Physical Exam Narrative exam: MUSCULOSKELETAL SPECIALTY EXAM CONSTITUTIONAL: Well developed, well nourished, appropriately groomed. RIGHT hand dominant. Excited to discharge RESPIRATORY: Clear to auscultation bilaterally, no increased work of breathing CARDIOVASCULAR: Regular Rate/ Rhythm, no swelling, edema or tenderness in BUE or BLE. All extremities warm. GI: + bowel sounds, soft, NTTP, nondistended. INTEGUMENTARY: Normal, no lesion, rash, masses or bruising noted in extremities. MUSCULOSKELETAL: BUE and BLE normal without defect, crepitus, subluxation, effusion, arthritic changes or TTP. SA EF WE EE FF FA HF KE ADF EHL APF R 5/5 overall L 4-/5 4-/5 4-/5 4-/5 4-/5 4-/5 4/5 4/5 4/5 4/5 4/5 ROM decreased on left upper extremity Tone increased on left upper extremity NEURO: Left facial droop including eye Sensation intact in all extremities without extinction. No tremor noted in 4 extremities. Follows 2 step commands. Aphasia not appreciated Dysarthria not appreciated, slowed maris with speech with slight slurring occasionally , improved Dysphagia not appreciated Neglect not appreciated POSTURE and GAIT: Sitting posture good. LOB at times. Gait reasonable with slowed short steps and QC. PSYCH: Alert, oriented x3, affect appears flattened. Insight appears intact. - Constitutional Vitals: Temp Pulse Resp BP Pulse Ox 36.6 C 76 18 123/54 99 07/21/19 07:31 07/21/19 07:31 07/21/19 07:31 07/21/19 07:31 07/21/19 07:31 Plan Activity: advance as tolerated, no driving until cleared by PCP, fall precautions Diet: diabetic (Cardiac with ground meats/Mech Soft) Special Instructions: record daily BP diary, record blood sugar diary, occupational therapy, home health RN Durable Medical Equipment Needed Upon Discharge: Cane-Quad Care Plan Goals: The patient's blood pressure was very difficult to get under control. She was very labile on various medications and tended to have episodes of hypotension followed by medications being held which resulted in episodes of hypertension. With the help of nephrology were finally able to get her stabilized on the fo llowing medications clonidine 0.1 mg oral every 8 hours, hydralazine 100 mg oral every 8 hours, labetalol 300 mg oral twice a day, nifedipine XL 60 mg oral every 12 hours. Over approximately the last 5 or 6 days she has tolerated these medications without needing to have any held and her blood pressures have been between SBP of 100-155. Would recommend close monitoring of her blood pressures and careful adjustment of medications if needed. She tended to overcorrect on higher doses of clonidine plus this apparently made her very drowsy. Patient's previous A1c's were less than 6 since 2017. May 2017 was 5.7%, January 2018 was 4.2%, May 2019 was 4.9%. She states she was previously on Lantus at home. We did monitor her with a sliding scale which was used occasionally and she does have a tendency to have blood sugars frequently greater than [id number] range. We will send her home on a low dose sliding scale since she does have a history of CVA and we want to reduce any risk possible for future CVA. Her renal function has worsened since being in the hospital. Patient will need to follow up with her warehouse administrator within 1-2 weeks and will need to make an appointment for this. Diastolic CHF was stable with no exacerbation. Echo performed during this period of hospitalization showed an EF of 40-50%. Follow up with: MEET IRVIN MD [Primary Care Provider] - 7 Days JOSH NIELSEN MD [Staff Physician] - 7 Days Prescriptions: AtorvaSTATin [Lipitor] 40 mg PO QHS #30 tablet hydrALAZINE [Apresoline TAB] 100 mg PO TID #90 tab Aspirin EC 325 mg PO QDAY #30 tablet cloNIDine [Catapres] 0.1 mg PO Q8HR #90 tablet Bisacodyl [Dulcolax tab] 5 mg PO BID PRN #30 tablet PRN Reason: Constipation Lispro Insulin [HumaLOG] See Protocol SUB-Q ACHS 30 Days units Labetalol [Labetalol 100mg TAB] 300 mg PO BID #60 tablet NIFEdipine XL [Procardia Xl] 60 mg PO Q12H #60 tablet Pantoprazole [Protonix TAB] 20 mg PO QDAY #30 tablet.
[2019-07-21] MEDS: HumaLOG SUB-Q SCH ×3 (09:19→12:49)
[2019-07-21] MEDS: NORMODYNE PO SCH (09:19)
[2019-07-21] MEDS: APRESOLINE PO SCH ×2 (09:19→13:02)
[2019-07-21] MEDS: ECOTRIN PO SCH (09:20)
[2019-07-21] MEDS: PROTONIX PO SCH (09:20)
[2019-07-21 11:59] VITALS: BP 108/62
[2019-07-21] MEDS ORDERED: LANTUS SUB-Q SCH (21:00)
== END 2019-07-21 15:30 | disposition home health service (06) | DRG 56 ==
LOC: 3A 17:37 → UNDOADMIN 17:37 → 3B 20:02
PROVIDERS: ADMIT Physical Medicine & Rehabilitation; ATTEND Physical Medicine & Rehabilitation
DX: I69.354 Hemiplegia and hemiparesis following cerebral infarction affecting left non-dominant side (principal); G93.41 Metabolic encephalopathy; I63.321 Cerebral infarction due to thrombosis of right anterior cerebral artery; I13.0 Hypertensive heart and chronic kidney disease with heart failure and stage 1 through stage 4 chronic kidney disease, or unspecified chronic kidney disease; E44.0 Moderate protein-calorie malnutrition; N18.4 Chronic kidney disease, stage 4 (severe); I50.32 Chronic diastolic (congestive) heart failure; G35 Multiple sclerosis; J44.9 Chronic obstructive pulmonary disease, unspecified; E11.22 Type 2 diabetes mellitus with diabetic chronic kidney disease; K29.00 Acute gastritis without bleeding; D64.9 Anemia, unspecified; R13.10 Dysphagia, unspecified; F32.9 Major depressive disorder, single episode, unspecified; R26.2 Difficulty in walking, not elsewhere classified; R26.89 Other abnormalities of gait and mobility; R53.81 Other malaise; R53.83 Other fatigue; Z90.49 Acquired absence of other specified parts of digestive tract; Z82.49 Family history of ischemic heart disease and other diseases of the circulatory system; Z83.3 Family history of diabetes mellitus; Z82.3 Family history of stroke; Z79.82 Long term (current) use of aspirin; Z79.899 Other long term (current) drug therapy; Z79.4 Long term (current) use of insulin; Z68.29 Body mass index [BMI] 29.0-29.9, adult; Z88.5 Allergy status to narcotic agent
CPT/HCPCS: 36415; 70450; 70551; 71045; 74018; 80048; 80053; 80061; 82140; 82270; 82607; 82747; 82962; 83036; 83550; 85025; 85027; 86140; 93005; 93010; 93306; 94640; G0378; A9270-GY; C9113; J0360; J1644; J1815; J1940; J2060; J2405; J2765; J7030; J7050; Q0162